=== PATIENT | male | born 1960 | race Caucasian/White ===

== ENCOUNTER 2020-12-14 10:29 | Emergency (ER) | payer MEDICARE, SELFPAY ==
[2020-12-14 11:16] VITALS: BP 164/88; PULSE 60; RESP 15; TEMP 36.3; O2SAT 96; BMI 54.3
--- NOTE | 2020-12-14 13:33 | W.ED.EXTPRO ---
HPI - Extremity Problem General: Chief complaint: Extremity Injury, Lower Stated complaint: L foot wound Time Seen by Provider: 12/14/20 13:21 History of Present Illness: HPI Narrative: Patient is a 60-year-old male comes to the ED with a wound on left foot. Patient says proximately 2 weeks ago he had to drive across country from [place] to here in [place]. He says he had his left foot resting on the floor boards and it caused a wound on his foot. He has been tending to it for the past week and soaking his foot hydrogen peroxide and water and did has not gotten better. He denies any diabetes or peripheral neuropathy. He says he has had a bad staph infection in the past. Denies any fever, chills, nausea/vomiting. Patient is new in town and just got here last week. He has an appointment with a primary care provider here locally on January 05 to get established. Patient says he has a history of chronic kidney disease, hypertension, A. fib. Associated symptoms: Deny chest pain, fever(s) or rash Review of Systems Const: Denies: fever(s), chills or fatigue Eyes: Denies: change in vision or eye discomfort ENMT: Denies: throat pain, odynophagia, nasal discharge or nasal congestion Card: Denies: chest pain, palpitations, edema, swelling of feet/ankles, dyspnea on exertion or orthopnea Resp: Denies: dyspnea, productive cough or non-productive cough GI: Denies: abdominal pain, nausea, vomiting, diarrhea, constipation or hematochezia : Denies: flank pain, difficulty urinating, dysuria or hematuria Musc: Denies: neck pain, back pain or extremity swelling Skin/Breast: Reports: non-healing lesions (Mild worsening wound on bottom of left foot.); Denies: rash Neuro: Denies: headache(s), numbness in extremities or weakness in extremities Physical Exam Const: COMMON NORMALS: no acute distress and patient oriented x3 GENERAL APPEARANCE: cooperative and comfortable NUTRITIONAL APPEARANCE: obese HENMT: COMMON NORMALS: normocephalic HEAD & SCALP: normocephalic MOUTH: Normal oral and palatal mucosa present THROAT: posterior oropharynx normal and uvula midline Neck/C-Spine: COMMON NORMALS: supple GENERAL: Yes normal visual inspection Resp: COMMON NORMALS: normal respiratory effort, No retractions, No use of accessory muscles and clear to auscultation bilaterally AUSCULTATION: clear to auscultation bilaterally Cardio: COMMON NORMALS: regular rate, regular rhythm, S1 normal heart sound present, S2 normal heart sound present, No gallops present (Cardio), No clicks present (Cardio), No murmurs present (Cardio) and Peripheral pulses 2+ throughout RATE: regular rate RHYTHM: regular rhythm HEART SOUNDS: S1 normal heart sound present and S2 normal heart sound present PERIPHERAL PULSES: Peripheral pulses 2+ throughout GI: COMMON NORMALS: Normal to inspection, nondistended, normoactive bowel sounds present, Soft to palpation, non-tender and no masses PALPATION: Yes Soft to palpation : COMMON NORMALS: Yes no CVA tenderness BLADDER/KIDNEY EXAM: Yes no CVA tenderness Back/Pelvis: COMMON NORMALS: no CVA tenderness Extremity: NARRATIVE EXTREMITY EXAM: Left foot?patient has a pressure ulcer on the lateral aspect of the plantar side of foot. There is a foul odor and some yellow drainage from ulcer. There is some surrounding erythema and swelling in the foot as well. GENERAL: Yes normal exam except as noted Neuro: COMMON NORMALS: patient oriented x3 and moves all extremities Skin: NARRATIVE SKIN EXAM: Left foot?patient has a pressure ulcer on the lateral aspect of the plantar side of foot. There is a foul odor and some yellow drainage from ulcer. There is some surrounding erythema and swelling in the foot as well. GENERAL SKIN EXAM: dry skin Course Vital Signs: Vital signs: Vital Signs Temperature 97.3 F L 12/14/20 11:16 Pulse Rate 84 12/14/20 15:21 Respiratory Rate 20 H 12/14/20 15:21 Blood Pressure 131/69 12/14/20 15:21 Pulse Oximetry 98 12/14/20 15:21 MDM - Extremity (Nontraumatic) MDM Narrative: Medical decision making narrative: Patient is a 60-year-old male that comes to the ED with a wound on left foot. Patient is new to the area and just moved here a week ago. Past medical history of chronic kidney disease of unknown stage, hypertension, A. fib. Patient has no other complaints. Patient is obese and is sitting comfortably on exam bed when entered the room. He showed no signs of any acute distress or pain. He does have an ulcer on the bottom of his left foot that has some surrounding erythema warmth and there is some malodorous purulent drainage from ulcer as well. CBC was unremarkable no elevation of white blood cell count. CRP 32.4. Patient had an elevated creatinine level of 2.6, but we have no history on patient besides him telling us that he has chronic kidney disease so this is very likely his normal level. He has no flank pain, abdominal pain, UTI complaints or CVA tenderness upon exam. X-ray of left foot showed no signs of any osteomyelitis. Patient was given a dose of IV Vanco while here in the ED. I placed an order with case management for patient to be referred to wound care clinic for further evaluation and treatment of left foot ulcer. Patient was diagnosed with a foot ulcer and discharged home with a prescription for Bactrim and a written prescription for hydrocodone for pain. Patient has an appointment with PCP here in the area in a couple weeks to get care established. I told patient that employment case manager will be contacting the next several days set up an appointment with wound care clinic. Return to ED precautions given. Patient understood agree with plan. Lab Data: Attestation: I reviewed the patient's lab results. Labs: Lab Results 12/14/20 12/14/20 Range/Units 14:42 14:42 WBC 8.3 (4.0-10.0) 10^3/ uL RBC 3.58 L (4.1-5.3) 10^6/u L Hgb 11.0 L (11.7-16.6) g/dL Hct 35.4 L (42.0-52.0) % MCV 98.9 H (80-94) fL MCH 30.7 (28.0-34.0) pg MCHC 31.1 (30.0-36.0) g/dL RDW 13.8 (12.1-15.1) % Plt Count 252 (130-400) 10^3/c mm MPV 9.5 (7.4-10.4) fL Neut % (Auto) 74.7 % Lymph % (Auto) 15.2 % [place] % (Auto) 6.7 % Eos % (Auto) 1.9 % Baso % (Auto) 0.5 % Neut # (Auto) 6.20 (1.8-7.7) 10^3/u L Lymph # (Auto) 1.3 (0.8-4.8) 10^3/u L [place] # (Auto) 0.6 (0.2-0.9) 10^3/u L Eos # (Auto) 0.2 (0.0-0.8) 10^3/u L Baso # (Auto) 0.0 (0.0-0.1) 10^3/u L Nucleated RBC % (a uto) 0 % Nucleated RBCs # 0.0 /100WBC Sodium 140 (136-145) mmol/L Potassium 5.0 (3.5-5.1) mmol/L Chloride 106 (98-107) mmol/L Carbon Dioxide 20 L (22-29) mmol/L Anion Gap 19.0 (5-19) BUN 65 H (8-23) mg/dL Creatinine 2.6 H (0.7-1.2) mg/dL GFR Calculation 25.2 L (90-130) mL/min Glucose 120 H (65-115) mg/dL Calculated Osmolal ity 310 H (285-295) mOsm/k g Calcium 9.4 (8.5-10.5) mg/dL Total Bilirubin 0.3 (0.15-1.2) mg/dL AST 11 (0-40) U/L ALT 7 (0-41) U/L Alkaline Phosphata se 65 (40-130) IU/L C-Reactive Protein 32.4 H (0.0-4.9) mg/L Total Protein 7.1 (6.6-8.7) g/dL Albumin 4.0 (3.5-5.2) g/dL Globulin 3.1 (1.3-4.6) g/dL Imaging Data^: Xray Ortho: Attestation: I personally reviewed and interpreted this imaging study as follows: Radiologist's impression: [address] [address] XRay Report Signed Patient: Kristopher Jesus Unit #: [id number] : 1960 Age/Sex: 60 / M ADM Date: 12/14/20 Loc: ER Room/Bed: Attending Dr: Ordering Provider/Ordering MD: Leo Arellano Date of Service: 07/04/21 Procedure(s): XR foot LT min 3V* 39898 Accession Number(s): [id number] Report Number: [id number] PROCEDURE INFORMATION: Exam: XR Left Foot Exam date and time: 12/14/2020 1:41 PM Age: 60 years old Clinical indication: Pain; Foot; Left; Prior surgery; Additional info: Ulcer on bottom of foot TECHNIQUE: Imaging protocol: XR Left foot. Views: 3 or more views. COMPARISON: No relevant prior studies available. FINDINGS: Bones/joints: Ankylosis of the hindfoot and midfoot. Severe degenerative changes tibiotalar joint. Severe degenerative changes at the 1st metatarsophalangeal joint. Prior trauma with healed fracture distal aspect 3rd metatarsal. XR/XR foot LT min 3V* 10106 IMPRESSION: No discrete evidence of osteomyelitis. 1. Ankylosis of the hindfoot and midfoot. 2. Severe degenerative changes tibiotalar joint. 3. Severe degenerative changes at the 1st metatarsophalangeal joint. 4. Prior trauma with healed fracture distal aspect 3rd metatarsal. Dictated By: Francisco Rodriguez MD Signed By: Francisco Rodriguez MD Signed Date/Time: 12/14/201443 DD/ 42 Discharge Plan Discharge Patient Disposition: Home Clinical Impression: Foot ulcer Qualifiers: Laterality: left Non-pressure ulcer stage: with fat layer exposed Qualified Code(s): L97.522 - Non-pressure chronic ulcer of other part of left foot with fat layer exposed Condition: Stable Prescriptions: New Bactrim DS 800-160 mg tablet 1 tab PO BID 10 Days Qty: 20 RF: 0 No Action Aspir-81 81 mg PO DAILY RF: 0 hydralazine 10 mg Tablet 10 mg PO TID RF: 0 carvedilol 12.5 mg Tablet 6.25 mg PO BID RF: 0 Vitamin B-12 1,000 mcg Tablet 1,000 mcg PO DAILY RF: 0 amlodipine 5 mg Tablet 5 mg PO DAILY RF: 0 spironolactone 25 mg Tablet 25 mg PO DAILY RF: 0 gemfibrozil 600 mg Tablet 600 mg PO BID RF: 0 folic acid 1 mg Tablet 1 mg PO DAILY RF: 0 hydralazine 50 mg Tablet 50 mg PO TID RF: 0 lisinopril 40 mg Tablet 40 mg PO BID RF: 0 Vitamin D3 125 mcg (5,000 unit) Tablet 125 mcg PO DAILY RF: 0 Multaq 400 mg Tablet 400 mg PO BID RF: 0 Fish Oil 1,000 mg (120 mg-180 mg) Capsule 1 cap PO DAILY RF: 0 Xarelto 15 mg Tablet 15 mg PO DAILY RF: 0 One-A-Day Men's 50 Plus 400-20-370 mcg Tablet 1 tab PO DAILY RF: 0 magnesium oxide 400 mg magnesium Tablet 400 mg PO DAILY RF: 0 Discharge Orders: Discharge ED (Routine); Ordered 12/14/20 Ordered By: Leo Arellano Discharge Diet: Regular Discharge Activity: Resume usual activity Patient Instructions: Acute Wound Care (ED), Pressure Ulcer (ED), Opioid Safety Activity Restrictions/Additional Instructions: Follow-up with medical provider as directed. Case management will be contacting you in the next several days to set up an appointment with a wound care clinic. Take medications as prescribed. Return to the ER or your medical provider if condition worsens. Please read and understand discharge instructions. Thank you for choosing [facility] for your healthcare needs today. Please realize this is an emergency room and that we are providing you with a medical screening exam and this may not be complete and all inclusive of all the testing and or work up that you may need to determine your ailment or severity of your illness. It is very important that you follow up as instructed or that you return to the Emergency Department should you have concerns or if your condition changes or worsens in any way. Coding Level of Care Code ED Senior Attorney for Helga Fonseca Exam Comprehensive
--- NOTE | 2020-12-14 13:41 | XRR_ITS ---
PROCEDURE INFORMATION: Exam: XR Left Foot Exam date and time: 12/14/2020 1:41 PM Age: 60 years old Clinical indication: Pain; Foot; Left; Prior surgery; Additional info: Ulcer on bottom of foot TECHNIQUE: Imaging protocol: XR Left foot. Views: 3 or more views. COMPARISON: No relevant prior studies available. FINDINGS: Bones/joints: Ankylosis of the hindfoot and midfoot. Severe degenerative changes tibiotalar joint. Severe degenerative changes at the 1st metatarsophalangeal joint. Prior trauma with healed fracture distal aspect 3rd metatarsal. XR/XR foot LT min 3V* 42753 IMPRESSION: No discrete evidence of osteomyelitis. 1. Ankylosis of the hindfoot and midfoot. 2. Severe degenerative changes tibiotalar joint. 3. Severe degenerative changes at the 1st metatarsophalangeal joint. 4. Prior trauma with healed fracture distal aspect 3rd metatarsal.
[2020-12-14 14:50] LABS: Basophils % 0.5 %; Eosinophils # 0.2 10^3/uL (0.0-0.8); Eosinophils % 1.9 %; Hematocrit 35.4 % (42.0-52.0); Lymphocytes # 1.3 10^3/uL (0.8-4.8); Lymphocytes % 15.2 %; Mean Corpuscular HGB Conc 31.1 g/dL (30.0-36.0); Mean Corpuscular Hemoglobin 30.7 pg (28.0-34.0); Mean Corpuscular Volume 98.9 fL (80-94); Mean Platelet Volume 9.5 fL (7.4-10.4); Monocytes # 0.6 10^3/uL (0.2-0.9); Monocytes % 6.7 %; Neutrophils % 74.7 %; Nucleated Red Blood Cells % 0 %; Platelet Count 252 10^3/cmm (130-400); Red Blood Count 3.58 10^6/uL (4.1-5.3); Red Cell Distribution Width 13.8 % (12.1-15.1); White Blood Count 8.3 10^3/uL (4.0-10.0)
[2020-12-14] MEDS: vancomycin 1,500 MG/300 ML PIGGYBACK 200 MG IV (14:58)
[2020-12-14] MEDS: sodium chloride 0.9% 500 ML IV (14:58)
[2020-12-14 15:18] LABS: Alanine Aminotransferase 7 U/L (0-41); Alkaline Phosphatase 65 IU/L (40-130); Aspartate Amino Transferase 11 U/L (0-40); Blood Urea Nitrogen 65 mg/dL (8-23); C Reactive Protein 32.4 mg/L (0.0-4.9); Calcium 9.4 mg/dL (8.5-10.5); Carbon Dioxide 20 mmol/L (22-29); Chloride 106 mmol/L (98-107); Globulin 3.1 g/dL (1.3-4.6); Glomerular Filtration Rate 25.2 mL/min (90-130); Glucose 120 mg/dL (65-115); Osmolality Calculated 310 mOsm/kg (285-295); Sodium 140 mmol/L (136-145); Total Bilirubin 0.3 mg/dL (0.15-1.2); Total Protein 7.1 g/dL (6.6-8.7)
[2020-12-14 15:21] VITALS: BP 131/69; PULSE 84; RESP 20; O2SAT 98
[2020-12-14] MEDS: HYDROcodone-acetaminophen 7.5-325 mg Tablet 1 TAB PO (15:51)
--- NOTE | 2020-12-14 17:19 | PC.NURSE ---
left foot wound cleaned with saline and covered with telfa, 4x4s and gauze. supplies fro one more dressing given to patient. he is to follow up with wound care
--- NOTE | 2020-12-16 08:17 | DCPLANNER ---
manager merchandise had message to schedule a follow up appointment for patient with Wound Care. manager merchandise called Wound Care clinic, spoke with Kandy, gave clinic patients information. A follow up appointment was scheduled for Tuesday, December 17, 2020 at 8:30 with Gladys. manager merchandise called patient and gave patient the appointment information.
--- NOTE | 2021-01-29 11:33 | DCPLANNER ---
Patient had a follow up appointment scheduled for 12.17.20 with Wound Care - patient did attend appointment.
== END 2020-12-14 17:21 | disposition home or self-care (01) ==
PROVIDERS: Emergency Provider Physician Assistant
DX: L97.522 Non-pressure chronic ulcer of other part of left foot with fat layer exposed (principal); Z79.82 Long term (current) use of aspirin
CPT/HCPCS: 36415; 73630; 80053; 85025; 86140; 87040; 96365; 99284; J3370; J7040

== ENCOUNTER 2020-12-17 08:11 | Outpatient (CLI) | payer MEDICARE, SELFPAY | END 2020-12-17 08:12 | disposition home or self-care (01) | PROVIDERS: Visit Provider Nurse Practitioner Family | DX: I96 Gangrene, not elsewhere classified (principal); L97.522 Non-pressure chronic ulcer of other part of left foot with fat layer exposed | CPT/HCPCS: 11042; 11045; G0463 ==

== ENCOUNTER 2020-12-31 08:56 | Outpatient (CLI) | payer MEDICARE, SELFPAY | END 2020-12-31 08:57 | disposition home or self-care (01) | LOC: WOUND 08:56 | PROVIDERS: PCP Family Medicine Adult Medicine; Visit Provider Thoracic Surgery (Cardiothoracic Vascular Surgery) | DX: I96 Gangrene, not elsewhere classified (principal); L89.892 Pressure ulcer of other site, stage 2 | CPT/HCPCS: 11042; 11045 ==

== ENCOUNTER 2021-01-07 08:42 | Outpatient (CLI) | payer MEDICARE, MEDICAID, SELFPAY | END 2021-01-07 08:43 | disposition home or self-care (01) | LOC: WOUND 08:43 | PROVIDERS: PCP Family Medicine Adult Medicine; Visit Provider Nurse Practitioner Family | DX: L89.892 Pressure ulcer of other site, stage 2 (principal) | CPT/HCPCS: 11042; 11045 ==

== ENCOUNTER 2021-01-14 08:49 | Outpatient (CLI) | payer MEDICARE, MEDICAID, SELFPAY | END 2021-01-14 08:50 | disposition home or self-care (01) | LOC: WOUND 08:51 | PROVIDERS: PCP Family Medicine Adult Medicine; Visit Provider Thoracic Surgery (Cardiothoracic Vascular Surgery) | DX: L89.892 Pressure ulcer of other site, stage 2 (principal) | CPT/HCPCS: 11042 ==

== ENCOUNTER 2021-01-21 08:34 | Outpatient (CLI) | payer MEDICARE, MEDICAID, SELFPAY | END 2021-01-21 08:35 | disposition home or self-care (01) | PROVIDERS: PCP Family Medicine Adult Medicine; Visit Provider Thoracic Surgery (Cardiothoracic Vascular Surgery) | DX: L89.892 Pressure ulcer of other site, stage 2 (principal) | CPT/HCPCS: 11042 ==

== ENCOUNTER → 2021-01-27 10:49 | Outpatient (BNVA) | payer MEDICARE, MEDICAID, SELFPAY | PROVIDERS: Visit Provider Family Medicine Adult Medicine | DX: I11.0 Hypertensive heart disease with heart failure; I50.9 Heart failure, unspecified; I25.10 Atherosclerotic heart disease of native coronary artery without angina pectoris; E66.01 Morbid (severe) obesity due to excess calories; L97.509 Non-pressure chronic ulcer of other part of unspecified foot with unspecified severity; Z68.43 Body mass index [BMI] 50.0-59.9, adult | CPT/HCPCS: 80053; 83036; 84443; 85025 ==

== ENCOUNTER 2021-01-28 08:15 | Outpatient (CLI) | payer MEDICARE, MEDICAID, SELFPAY | END 2021-01-28 08:16 | disposition home or self-care (01) | LOC: WOUND 08:16 | PROVIDERS: Visit Provider Thoracic Surgery (Cardiothoracic Vascular Surgery) | DX: L89.892 Pressure ulcer of other site, stage 2 (principal) | CPT/HCPCS: 11042 ==

== ENCOUNTER 2021-02-04 08:44 | Outpatient (CLI) | payer MEDICARE, MEDICAID, SELFPAY | END 2021-02-04 08:45 | disposition home or self-care (01) | LOC: WOUND 08:45 | PROVIDERS: Visit Provider Nurse Practitioner Family | DX: L89.892 Pressure ulcer of other site, stage 2 (principal) | CPT/HCPCS: 11042 ==

== ENCOUNTER 2021-02-18 08:55 | Outpatient (CLI) | payer MEDICARE, SELFPAY | END 2021-02-18 08:56 | disposition home or self-care (01) | LOC: WOUND 08:56 | PROVIDERS: Visit Provider Thoracic Surgery (Cardiothoracic Vascular Surgery) | DX: L89.892 Pressure ulcer of other site, stage 2 (principal) | CPT/HCPCS: 11042 ==

== ENCOUNTER 2021-03-04 08:02 | Outpatient (CLI) | payer MEDICARE, MEDICAID, SELFPAY | END 2021-03-04 08:03 | disposition home or self-care (01) | LOC: WOUND 08:03 | PROVIDERS: PCP Family Medicine Adult Medicine; Visit Provider Thoracic Surgery (Cardiothoracic Vascular Surgery) | DX: L89.892 Pressure ulcer of other site, stage 2 (principal) | CPT/HCPCS: 97597 ==

== ENCOUNTER 2021-03-18 08:49 | Outpatient (CLI) | payer MEDICARE, MEDICAID, SELFPAY | END 2021-03-18 08:50 | disposition home or self-care (01) | LOC: WOUND 08:50 | PROVIDERS: PCP Family Medicine Adult Medicine; Visit Provider Thoracic Surgery (Cardiothoracic Vascular Surgery) | DX: L89.892 Pressure ulcer of other site, stage 2 (principal) | CPT/HCPCS: 97597 ==

== ENCOUNTER 2021-04-01 08:26 | Outpatient (CLI) | payer MEDICARE, MEDICAID, SELFPAY | END 2021-04-01 08:27 | disposition home or self-care (01) | LOC: WOUND 08:27 | PROVIDERS: Visit Provider Nurse Practitioner Family | DX: Z09 Encounter for follow-up examination after completed treatment for conditions other than malignant neoplasm (principal) | CPT/HCPCS: 99212 ==

== ENCOUNTER 2021-07-14 08:47 | Inpatient (IN) | payer MEDICARE, SELFPAY ==
[2021-07-14] VITALS (56 sets, daily range): BP systolic 91–165; BP diastolic 41–92; PULSE 0–170; RESP 13–35; O2SAT 91–100; BMI 48.8
[2021-07-14] MEDS: midazolam 1 mg/mL INJ 2 mL 3 MG IVP (08:56)
--- NOTE | 2021-07-14 09:04 | ECG_ITS ---
[facility] Test Date: 2021-07-14 Pat Name: Kristopher Jesus Department: Room: Gender: Male Graduate Research Assistant: : 1958-02-28 Requested By: Zack Santos Order Number: [id number] Hamzah MD: Brittany Castillo M.D. Measurements Intervals [place] Rate: 72 P: 66 [place]: 234 QRS: 118 QRSD: 169 T: -12 QT: 391 QTc: 431 Interpretive Statements SINUS RHYTHM WITH FIRST DEGREE AV BLOCK INTRAVENTRICULAR CONDUCTION DELAY [130+ ms QRS DURATION] LATERAL MYOCARDIAL INFARCTION , OF INDETERMINATE AGE [40+ ms Q WAVE AND/OR ST/T ABNORMALITY IN I/aVL/V5/V6] No previous ECG available for comparison Electronically Signed On 07-14-2021 17:08:54 COMB SETTER by Brittany Castillo M.D. [email or web address], [id number] f
--- NOTE | 2021-07-14 09:06 | XR_ITS ---
WS: [id number] XR chest 1V portable [id number] REASON FOR EXAM: resuscitation FINDINGS: Prominent mediastinum likely due to tortuous great vessels and mediastinal fat. The heart is at the upper limits of normal. No acute pulmonary parenchymal or pleural abnormality is identified. No pneumothorax. Bony thorax is intact. No acute rib fracture identified. XR/XR chest 1V portable [id number] IMPRESSION: No acute chest abnormality.
--- NOTE | 2021-07-14 09:09 | ECG_ITS ---
[facility] Test Date: 2021-07-14 Pat Name: Kristopher Jesus Department: Room: Gender: Male Premium Cancellation Clerk: : 1958-02-28 Requested By: Zack Santos Order Number: [id number] Hamzah MD: Brittany Castillo M.D. Measurements Intervals [place] Rate: 80 P: 47 RI: 231 QRS: 90 QRSD: 178 T: 14 QT: 417 QTc: 483 Interpretive Statements SINUS RHYTHM WITH FIRST DEGREE AV BLOCK INDETERMINATE AXIS INTRAVENTRICULAR CONDUCTION DELAY [130+ ms QRS DURATION] No previous ECG available for comparison Electronically Signed On 07-14-2021 17:08:35 SENIOR MARKETING ANALYST by Brittany Castillo M.D. [id number]
[2021-07-14] MEDS: heparin 5,000 unit/mL INJ 1 mL 4000 UNIT IVP (09:15)
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
[2021-07-14] MEDS: heparin drip 25,000 UNIT/500 ML PREMIX 38.1 UNIT IV (09:24)
[2021-07-14 10:08] LABS: Basophils % 0.3 %; Eosinophils % 0.5 %; Hematocrit 36.2 % (42.0-52.0); Lymphocytes # 0.6 10^3/uL (0.8-4.8); Lymphocytes % 9.1 %; Mean Corpuscular HGB Conc 30.4 g/dL (30.0-36.0); Mean Corpuscular Hemoglobin 32.3 pg (28.0-34.0); Mean Corpuscular Volume 106.2 fl (80-94); Mean Platelet Volume 9.3 fL (7.4-10.4); Monocytes # 0.3 10^3/uL (0.2-0.9); Monocytes % 4.2 %; Neutrophils # 5.22 10^3/uL (1.8-7.7); Neutrophils % 84.9 %; Nucleated Red Blood Cells % 0 %; Platelet Count 183 10^3/cmm (130-400); Red Blood Count 3.41 10^6/uL (4.1-5.3); Red Cell Distribution Width 14.1 % (12.1-15.1); White Blood Count 6.2 10^3/uL (4.0-10.0)
[2021-07-14 10:10] LABS: Arterial Blood Gas Hematocrit 35.4 % (42-52); Base Excess ABG -15.3 mmol/L (-2.0-2.0); Blood Gas Allen Test Pos; Blood Gas Sample Site Radial, left; Blood Gas Sample Type Arterial; Carboxyhemoglobin 0.4 %THgb (0.4-20.1); HCO3 ABG 12.8 mmol/L (22-26); HGB O2 Sat 98.3 % (95-100); Ionized Calcium Level - ABG 1.3 mmol/L (1.1-1.4); Oxygen Device NRB; Oxygen Saturation ABG 99.7; Potassium Level - ABG 5.6 mmol/L (3.5-5.0); Total Hemoglobin 11.6 g/dL (14-18)
[2021-07-14 10:11] LABS: ABG PH Result 7.15 (7.35-7.45)
[2021-07-14] MEDS: morphine 4 mg/mL SDV 1 mL 2 MG IVP ×4 (10:14→20:14)
--- NOTE | 2021-07-14 10:25 | PC.NURSE ---
Upon arrival in ED pt was found to be in V-tach per EMS and bedside monitor. Pt was administered 3 mg Versed and a synchronized cardioversion at 120j was delivered at 0858. This cardioversion converted patient in V-fib and an immediate defibrillator (unsynced) was delivered at 200j was delivered. CPR was very briefly performed (less than 10 seconds) following defibrillation. Once CPR was stopped pt was found to be in a sinus rhythm. Pt is now, at this time, alert, oriented x 4 with stable vital signs. Dr. Pruitt is at bedside.
[2021-07-14 10:36] LABS: Troponin(5th) Baseline 62 ng/L (0-15)
--- NOTE | 2021-07-14 11:09 | ECG_ITS ---
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 Measurements Intervals [place] Rate: 82 P: 85 TN: 227 QRS: 71 QRSD: 165 T: 67 QT: 374 QTc: 439 Interpretive Statements SINUS RHYTHM WITH FIRST DEGREE AV BLOCK LEFT BUNDLE BRANCH BLOCK [120+ ms QRS DURATION, 80+ ms Q/S IN V1/V2, 85+ ms R IN I/aVL/V5/V6] Compared to ECG 07/14/2021 10:28:24 Left bundle-branch block now present Indeterminate axis no longer present Intraventricular conduction delay no longer present Electronically Signed On 07-14-2021 17:12:21 ROAD MENDER by Brittany Castillo M.D. [id number]
--- NOTE | 2021-07-14 11:13 | PC.PHAR ---
PT IS UNABLE TO VERIFY MEDICATIONS, PT IS BECOMING AGITATED TALKING ABOUT MEDS. PT STATES HE FILLS THROUGH [facility] - MEDICATIONS VERIFIED BY [facility] RECENTLY FILLED MEDS
[2021-07-14 11:17] LABS: Alanine Aminotransferase 15 U/L (0-41); Albumin Level 3.6 g/dL (3.5-5.2); Alkaline Phosphatase 50 IU/L (40-130); Anion Gap 16.6 (5-19); Aspartate Amino Transferase 33 U/L (0-40); Blood Urea Nitrogen 37 mg/dL (8-23); Calcium 8.6 mg/dL (8.5-10.5); Carbon Dioxide 14 mmol/L (22-29); Chloride 112 mmol/L (98-107); Creatine Phosphokinase 90 U/L (39-308); Globulin 2.5 g/dL (1.3-4.6); Glucose 102 mg/dL (65-115); Magnesium 2.1 mg/dL (1.7-2.3); Osmolality Calculated 291 mOsm/kg (285-295); Sodium 136 mmol/L (136-145); Thyroid Stimulating Hormone 1.18 uIU/mL (0.27-4.20); Total Bilirubin 0.2 mg/dL (0.15-1.2); Total Protein 6.1 g/dL (6.6-8.7)
[2021-07-14 11:19] LABS: Potassium 6.6 mmol/L (3.5-5.1)
[2021-07-14] MEDS: sodium bicarbonate 8.4% 1 mEq/mL 50mL Syr 100 MEQ IVP (11:33)
[2021-07-14] MEDS: dextrose 50% syringe 50 mL IVP ×2 (11:36→21:24)
[2021-07-14] MEDS: insulin regular-human 100 units/1 mL 10 UNIT IVP ×2 (11:37→21:32)
[2021-07-14] MEDS: calcium gluconate 0.9% NaCL 1 GM/50 ML PREMIX IV ×3 (11:42→21:31)
[2021-07-14 11:59] LABS: Troponin 5 2HR 74.63 ng/L (0-15)
[2021-07-14 12:05] LABS: Troponin 5 2HR Delta 12.63 ABS# (0-10)
[2021-07-14] MEDS: acetaminophen 325 mg Tablet 650 MG PO (12:27)
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
--- NOTE | 2021-07-14 13:24 | USCV_ITS ---
Kristopher Jesus Age: 63 Gender: M : 02/28/1958 Exam Date: 07/14/2021 14:05 Ordering Phys: Andrei Pruitt MD Technologist: MERLE [place] [facility] [place] Indication: c/o chest pain, was in Vtach, shocked back to sinus rhythm, now in ER. Patient states that this happened to him in 2017, at [facility], [place], [place]. He states that he has seen Dr. Mancia, and that Dr. Mancia has a copy of his prior echo from [facility]. No hx of cardiac intervention per patient. BP: 144 / 80 HR: 85 Rhythm: Sinus Technical Quality: Adequate with [employer] MEASUREMENTS (Male / Female) Normal Values 2D ECHO LV Diastolic Diameter PLAX 5.9 cm 4.2 - 5.9 / 3.9 - 5.3 cm LV Systolic Diameter PLAX 3.6 cm IVS Diastolic Thickness 1.5 cm 0.6 - 1.0 / 0.6 - 0.9 cm IVS Systolic Thickness 2.1 cm LVPW Diastolic Thickness 1.3 cm 0.6 - 1.0 / 0.6 - 0.9 cm LVPW Systolic Thickness 1.9 cm LVOT Diameter 2.2 cm LV Ejection Fraction 2D Teich 67.8 % LV Ejection Fraction MOD 2C 68.3 % LV Ejection Fraction 2C AL 69.6 % LA Diameter 5.1 cm LA Width 6.8 cm LA Height 7.0 cm RA Width 5.5 cm RA Height 5.3 cm Aorta at Sinotubular Diameter 3.1 cm M-MODE Aortic Annulus Diameter 3.2 cm LA Ao Ratio MM 1.7 MV E Point Septal Separation 0.1 cm DOPPLER AV Peak Velocity 152.0 cm/s LVOT Peak Velocity 109.0 cm/s AV Area Cont Eq vti 2.9 cm squared AV Area Cont Eq pk 2.7 cm squared MV Peak Velocity 139.0 cm/s MV Area PHT 2.8 cm squared Mitral E to A Ratio 1.2 MV E' Velocity 60.0 cm/s Mitral E to MV E' Ratio 7.7 Mitral E to LV E' Lateral Ratio 6.9 Mitral E to LV E' Septal Ratio 8.6 TR Peak Velocity 299.3 cm/s TR Peak Gradient 35.8 mmHg TV Peak E Velocity 61.0 cm/s Right Atrial Pressure 10.0 mmHg Pulmonary Artery Systolic Pressu 45.8 mmHg FINDINGS Left Ventricle Normal left ventricular size. LV systolic function is grossly normal. Diastolic function is indeterminate Right Ventricle Grossly normal Right Atrium Not well visualized Left Atrium The left atrium is enlarged Mitral Valve Grossly normal Aortic Valve Not well visualized. No significant Aortic stenosis Tricuspid Valve Not well visualized Pulmonic Valve Not well visualized Pericardium Pleural effusion is noted Aorta Normal ascending aorta dimension. CONCLUSIONS Technically limited quality echocardiogram because of poor ultrasonic windows. LV systolic function is grossly normal. Left atrium is enlarged Valvular structures are not well-visualized however no gross abnormalities seen. Pleural effusion is noted. No comparison studies are available. Tera Cristobal MD (Electronically Signed) Final Date: 15 July 2021 12:14 S
[2021-07-14 14:00] LABS: Anion Gap 11.8 (5-19); Blood Urea Nitrogen 37 mg/dL (8-23); Calcium 8.3 mg/dL (8.5-10.5); Carbon Dioxide 17 mmol/L (22-29); Chloride 115 mmol/L (98-107); Glomerular Filtration Rate 55.6 mL/min (90-130); Glucose 74 mg/dL (65-115); Osmolality Calculated 293 mOsm/kg (285-295); Potassium 5.8 mmol/L (3.5-5.1); Sodium 138 mmol/L (136-145)
[2021-07-14 14:02] LABS: Add Urine Microscopic? NO; Charge for UA Resulting for Rev
[2021-07-14 14:12] LABS: Bilirubin Urine Neg (Negative); Blood Urine Neg (Negative); Glucose Urine UA Norm (Normal); Ketones Urine Negative (Negative); Leukocyte Esterase Urine Negative (Negative); Nitrate Urine Negative (Negative); Protein Urine Neg (Negative); Urine Appearance Clear (CLEAR); Urine Color Yellow (Yellow); Urobilinogen Urine Neg (Negative); pH Urine 5 (5-7)
[2021-07-14 14:32] LABS: Glucose Point of Care 82 mg/dL (70-110)
[2021-07-14 14:46] LABS: Vitamin B12 898 pg/mL (232-1245)
[2021-07-14] MEDS: perflutren protein-a microsphr 0.22 mg/mL SDV 3 mL IV (14:58)
[2021-07-14] MEDS: hyDRALAzine 50 mg Tablet PO (15:04)
--- NOTE | 2021-07-14 15:11 | PC.NURSE ---
2 mg Morphine given per verbal order of Dr. Downing. This was ahead of scheduled PRN time. Med was given to complete ECHO. Pt had CPR performed briefly earlier and ECHO was causing pain to this area.
[2021-07-14] MEDS: carvedilol 6.25 mg Tablet PO (18:08)
[2021-07-14] MEDS: sodium polystyrene sulfonate 15 gm/60 mL Btl PO ×2 (18:08→21:24)
[2021-07-14] MEDS: gemfibrozil 600 mg Tablet PO (18:08)
[2021-07-14 18:14] LABS: Folate Level > 20.0 ng/mL (4.5-32.2)
[2021-07-14 18:42] LABS: Partial Thromboplastin Time 104.3 SECONDS (23.9-36.7); Troponin 5 6HR 69.25 ng/L (0-15)
[2021-07-14 18:45] LABS: Troponin 5 6HR Delta 7.25 ng/L (0-12)
[2021-07-14 20:59] LABS: Blood Urea Nitrogen 38 mg/dL (8-23); Calcium 8.7 mg/dL (8.5-10.5); Chloride 112 mmol/L (98-107); Glomerular Filtration Rate 55.6 mL/min (90-130); Glucose 67 mg/dL (65-115); Osmolality Calculated 289 mOsm/kg (285-295); Sodium 136 mmol/L (136-145)
[2021-07-14 21:00] LABS: Anion Gap 22.5 (5-19); Carbon Dioxide 8 mmol/L (22-29); Potassium 6.5 mmol/L (3.5-5.1)
[2021-07-14] MEDS: dextrose 50% syringe 50 mL 25 ML IVP (21:27)
[2021-07-14] MEDS: sodium bicarbonate 8.4% 1 mEq/mL 50mL Syr 50 MEQ IVP (21:28)
[2021-07-14 23:07] LABS: Glucose Point of Care 115 mg/dL (70-110)
[2021-07-15] VITALS (48 sets, daily range): BP systolic 82–140; BP diastolic 47–83; PULSE 67–86; RESP 13–45; TEMP 36.8–36.9; O2SAT 87–100
[2021-07-15] MEDS: sodium polystyrene sulfonate 15 gm/60 mL Btl PO ×2 (03:26→17:43)
[2021-07-15] MEDS: morphine 4 mg/mL SDV 1 mL 2 MG IVP ×2 (03:42→12:41)
[2021-07-15 03:43] LABS: Basophils % 0.3 %; Eosinophils % 0.7 %; Hematocrit 30.5 % (42.0-52.0); Hemoglobin 9.4 g/dL (11.7-16.6); Lymphocytes # 1.6 10^3/uL (0.8-4.8); Lymphocytes % 27.7 %; Mean Corpuscular HGB Conc 30.8 g/dL (30.0-36.0); Mean Corpuscular Hemoglobin 32.1 pg (28.0-34.0); Mean Corpuscular Volume 104.1 fl (80-94); Mean Platelet Volume 9.3 fL (7.4-10.4); Monocytes # 0.7 10^3/uL (0.2-0.9); Monocytes % 11.2 %; Neutrophils # 3.47 10^3/uL (1.8-7.7); Neutrophils % 59.6 %; Nucleated Red Blood Cells % 0 %; Platelet Count 161 10^3/cmm (130-400); Red Blood Count 2.93 10^6/uL (4.1-5.3); Red Cell Distribution Width 14.2 % (12.1-15.1); White Blood Count 5.8 10^3/uL (4.0-10.0)
[2021-07-15 04:24] LABS: Alanine Aminotransferase 14 U/L (0-41); Albumin Level 3.2 g/dL (3.5-5.2); Alkaline Phosphatase 44 IU/L (40-130); Aspartate Amino Transferase 25 U/L (0-40); Blood Urea Nitrogen 38 mg/dL (8-23); Calcium 8.5 mg/dL (8.5-10.5); Carbon Dioxide 18 mmol/L (22-29); Chloride 111 mmol/L (98-107); Globulin 2.1 g/dL (1.3-4.6); Glomerular Filtration Rate 55.6 mL/min (90-130); Glucose 99 mg/dL (65-115); Osmolality Calculated 295 mOsm/kg (285-295); Sodium 138 mmol/L (136-145); Total Bilirubin 0.3 mg/dL (0.15-1.2); Total Protein 5.3 g/dL (6.6-8.7)
--- NOTE | 2021-07-15 04:25 | PC.NURSE ---
No changes overnight. Patient NPO for heart cath today.
[2021-07-15] MEDS: diphenhydrAMINE 50 mg Capsule PO (05:11)
[2021-07-15] MEDS: sodium chloride 0.9% 1,000 ML 50 ML IV (05:12)
--- NOTE | 2021-07-15 06:53 | XACV_ITS ---
Exam Room: [facility] Ht: 180 cm Wt: 159 kg BSA: 2.90 m2 Gender: Male : 02/28/1958 Exam Priority: Routine Procedure(s): Procedure Description: Diagnostic procedure Procedure Description: Coronary Angiography Diagnostic Cath Status: Urgent Diagnostic Findings * INDICATION: Ventricular tachycardia. * No disease noted in the Left Main, Left Anterior Descending, Right, or Circumflex coronary arteries. * Coronary angiography shows right dominance. Conclusions 1. Etiology of ventricular tachycardia/vfib likely hyperkalemia. 2. No disease noted in the Left Main, Left Anterior Descending, Right, or Circumflex coronary arteries. Recommendations * Outpatient cardiology follow up in 4 weeks. * Aggressive medical therapy. Diagnostic RX Recommendation: medical therapy and/or counseling Anticoagulation: Heparin Clinical Evaluation EBL: 5mL-10mL Procedural Details Pre-Procedure Time Out. Identified patient by full name and date of as verbalized by the patient/guarantor. Does the consent match the physician's order: Yes. Accurate & Complete Informed Consent: Yes. Inpatient/Outpatient History & Physical on Chart: Yes. Visualize and Verify Site with Patient/Guarantor: N/A. Relevant Radiology Images available: N/A. The risks, benefits, and alternatives of sedation and/or procedure were discussed by physician. The patient agrees to continue. Procedure started. Procedure Consent Obtained. Admit Source: In Patient. [facility] Clinical Fraility Score: 4: Vulnerable. Supervisor Hanging And Trimming Indications: V Tach. Chest Pain Symptom Assessment: Atypical Angina. Correct patient, site and procedure confirmed by cath team. Current diagnosis: Chest Pain. PERRLA. Strong, equal hand machine stuffer automatic bilaterally. Lungs clear x 5 lobes. right groin was prepped with chloroprep then draped in the usual sterile fashion. right radial was prepped with chloroprep then draped in the usual sterile fashion. Physician arrived. Physician scrubbed in. Immediate Pre-Procedure Time Out. Correct Patient: Yes; Correct Procedure: Yes; Correct Site: Yes; Correct Patient Position: Yes; Correct Supplies: Yes; Dried Flammable Prep: Yes; Blood Products Available: N/A;. Pre Procedural Pulses: right radial was 2+. Oxygen started at 2liters/min via nasal canula. Physician notified. Baseline sample Acquired. HR: 82 BPM. right brachial was prepped with chloroprep then draped in the usual sterile fashion. IV occluded upon arrival to analytical lab technician. US guided IV attempted by Jordan Ricks and unsuccessful. Dr Cristobal to attempt brachial IV with US. Lidocaine 1% infiltrated to the right brachial. Venous access obtained with a micropuncture set. 14 Fr IV catheter inserted over the wire for venous access. Lidocaine 1% infiltrated to the right radial. Arterial access obtained. A 5 samoan TIG catheter in over wire. Multiple views taken of left coronary artery. Catheter redirected to the RCA. Multiple views taken of right coronary artery. Catheter out. A 5 samoan JL4 catheter in over wire. Multiple views taken of left coronary artery. Catheter out. A TR Band was successful obtaining hemostatsis at the Right Radial artery insertion site. Post Procedure: Pulses reassessed and unchanged. PERRLA. Strong, equal hand machine stuffer automatic bilaterally. No VTE prophylaxis required. Total IV fluids: 23 mL. Medication's Wasted: Heparin = 1000 u. Medication's Wasted: Nitro = 49.8 mg. Medication's Wasted: Lidocaine 1% = 12 mL. Medication's Wasted: Other = Fentanyl 50 mcg. Medication's Wasted: Other = Versed 1mg. Post-op diagnosis: Non Obstructive CAD. Complications: none. Estimated blood loss: 5mL-10mL. Responsiveness - Normal response to verbal stimuli; alert and oriented, PERRLA. Airway - Unaffected, no intervention required; spontaneous ventilation. Circulation: W/N/L, pulses unchanged. Nausea/Vomiting: No. Procedure completed. Patient transferred by bed to ICU. Vital chart was stopped. Access Site Site: Right Radial artery Sheath Size: 6 Fr Hemostasis Method: TR Band Hemostasis Success: Successful Procedure Medications Start: 7:36 AM Stop: 7:36 AM Medication: Versed Amount: 1 mg Route: I.V. Start: 7:36 AM Stop: 7:36 AM Medication: Fentanyl Amount: 50 mcg Route: I.V. Start: 7:39 AM Stop: 7:39 AM Medication: Versed Amount: 1 mg Route: I.V. Start: 7:39 AM Stop: 7:39 AM Medication: Fentanyl Amount: 50 mcg Route: I.V. Start: 7:39 AM Stop: 7:39 AM Medication: Nitrogylcerin Amount: 200 mcg Route: I.A. Start: 7:41 AM Stop: 7:41 AM Medication: Versed Amount: 1 mg Route: I.V. Start: 7:41 AM Stop: 7:41 AM Medication: Fentanyl Amount: 50 mcg Route: I.V. Start: 7:42 AM Stop: 7:42 AM Medication: Heparin Amount: 5000 units Route: I.V. Start: 7:44 AM Stop: 7:44 AM Medication: Versed Amount: 1 mg Route: I.V. Start: 7:44 AM Stop: 7:44 AM Medication: Fentanyl Amount: 50 mcg Route: I.V. Start: 7:51 AM Stop: 7:51 AM Medication: Fentanyl Amount: 50 mcg Route: I.V. Start: 7:51 AM Stop: 7:51 AM Medication: Versed Amount: 1 mg Route: I.V. I, the attending physician, have reviewed and verified all procedure medications. Yes, all medications given per verbal order History/Risk Factors Hypertension: Yes Dyslipidemia: Yes Peripheral Arterial Disease (PAD): Yes Myocardial Infarction (FL): Yes Obesity: Yes Renal Disease: No Tobacco Use: Never Prior Interventions PCI: No CABG: No Valve Surgery: No Report Signatures Finalized by Tera Cristobal MD on 07/31/2021 03:37 PM
--- NOTE | 2021-07-15 07:08 | W.PM.OPSUD ---
Surgery/Procedure H&P Update DATE OF PROCEDURE: July 15, 2021 DATE H&P PERFORMED: 07/14/21 H&P UPDATE INFORMATION: I have reviewed H&P completed within last 30 days, I have examined patient prior to procedure and No changes to prior documentation PREOP DIAGNOSIS: Ventricular tachycardia/ Ventricular fibrillation PRIMARY INDICATION FOR PROCEDURE: Ventricular tachycardia/ Ventricular fibrillation PLANNED PROCEDURE: Left heart cath with possible percutaneous coronary intervention PATIENT REASSESSED PRIOR TO SEDATION, WITH NO CHANGE NOTED: Yes PHYSICAL EXAM: alert, oriented x 3, clear to auscultation bilaterally and regular rate & rhythm AIRWAY EVAL/ANESTHESIA PLAN: ASA IV, Monitored Anesthesia, Local Anesthesia, Risks, benefits & alternatives of sedation and/or procedure discussed and Patient agrees to continue as planned
--- NOTE | 2021-07-15 09:11 | PC.CHAP ---
Pastoral Care Encounter/Spiritual Assessment Type of Contact [] Declined equipment detailer visit [] Patient/Family/Request visit [] Outpatient visit [] Follow-up visit [] Physician referral [] Code/Alert [x] Routine visit [] Staff referral [] Actively dying [] Patient sleeping [] Family support [] [x] Out of room [] Palliative care [] [] Receiving care in room [] Pre-surgical visit [] Trauma [] Long length of stay [x] ICU visit [] Other: testing Relational/Emotional Strength [] Patient feels connected with others/family/visitors/staff [] Distress [] Loneliness/isolation [] Abandonment Spirituality of Patient [] Person of Candida [] Attends Muslim of their Candida [] Believes in Prayer [] Reads Bible or Muslim materials [] There are Spiritual issues to be addressed Fiber Analyst Interventions [x] Prayer [] Active listening [] Non-anxious presence [] Spiritual/emotional support [] Crisis/trauma care [] Spiritual counseling [] Bereavement support [] Provided bereavement packet [] Provided Bible/devotional materials [] Provided toy/stuffed animal, coloring book to patient or family member [] Provided Communion [] Anointing/[place] [] Salvation [x] Completed spiritual assessment [] Other: Impact on Illness or Injury [] Angry [] Fearful [] Anxious [] Often cries [] Exhaustion [] Unable to work [] Unable to attend druze [] Unable to walk/stand [] Unable to read [] Unable to drive [] Unable to eat/drink [] Unable to sleep [] Unable to be with family [] Patient intubated [] Other: Summary Time spent with patient
[2021-07-15] MEDS: FUROsemide 20 mg Tablet PO (09:45)
[2021-07-15] MEDS: hyDRALAzine 50 mg Tablet PO ×3 (09:45→20:05)
[2021-07-15] MEDS: magnesium oxide 400 mg tablet PO (09:45)
[2021-07-15] MEDS: pantoprazole DR 40 mg Tablet PO (09:45)
[2021-07-15] MEDS: gemfibrozil 600 mg Tablet PO ×2 (09:46→17:44)
[2021-07-15] MEDS: amlodipine 10 mg Tablet 5 MG PO (09:46)
[2021-07-15] MEDS: carvedilol 6.25 mg Tablet PO ×2 (09:47→17:43)
--- NOTE | 2021-07-15 10:00 | PC.NURSE ---
Pt arrived from cathlab this AM A&Ox4 and on room air. TR band in place, pulses felt and no hematoma noted.
--- NOTE | 2021-07-15 11:14 | P.PN_ITS ---
Subjective Subjective: Interval history: No issues or arrhythmias overnight. Had an angiogram this morning demonstrating no flow-limiting disease. Received Kayexalate again evening for elevated potassium. Medications: Reviewed: Yes Vitals/I&O/Wt Last Vital Signs Pulse 78 07/15/21 10:01 Resp 18 07/15/21 10:01 BP 117/65 07/15/21 10:01 Pulse Ox 100 07/15/21 10:01 07/14/21 07/15/21 07/15/21 22:59 06:59 14:59 Intake Total 1154.2 / 1254.835 0 / 1254.835 480 / 480 Output Total 300 / 300 300 / 300 Balance 1154.2 / 1254.835 -300 / 954.835 180 / 180 Weight last 48 hrs Weight 158.757 kg Physical Exam Narrative: EXAM NARRATIVE: General exam no distress Neck is supple no lymphadenopathy or thyromegaly Cardiovascular regular rate and rhythm with a 2/6 systolic murmur Lungs clear no wheezing or crackles Abdomen is soft obese nontender with positive bowel sounds. No obvious organomegaly. Extremities no cyanosis clubbing. Trace edema bilaterally. Venous stasis changes noted. Data : 07/15/21 03:27 07/15/21 03:27 A&P Assessment and plan (1) Ventricular tachycardia: Required cardioversion, and then defibrillation Etiology may be secondary to hyperkalemia potassium level better this morning at 5.0. Repeat in the afternoon. Hold DAKOTA inhibitor, spironolactone Note that he is on dranedarone chronically. Was placed on amiodarone here. Car diology will address converting to oral amiodarone Cardiology consultation magnesium was checked and normal Continue carvedilol Restart Norvasc, hydralazine as tolerated Echocardiogram result pending Status: Acute (2) Hyperkalemia: Received Kayexalate, insulin and glucose, calcium gluconate in the emergency department. Holding DAKOTA inhibitor, Aldactone Has received several more doses of Kayexalate Repeat potassium around 1600, and in a.m. Status: Acute (3) Chronic episodic atrial fibrillation: On dronaderone, carvedilol at home Currently on IV amiodarone, carvedilol Heparin drip from admission Xarelto will be resumed tomorrow Status: Acute (4) CAD (coronary artery disease): Serial troponins Status: Acute (5) CHF (congestive heart failure): Await echocardiogram No diuresis needed at this time. Appears relatively compensated. Status: Acute Plan Full code May transfer to CSU Was on heparin drip for DVT prophylaxis. Attestations Medical Necessity Statement*: Needs continued hospital stay for close monitoring following resuscitation, hyperkalemia, sustained ventricular tachycardia Coding Level of Care Code Acute Prepared Foods Team Leader for [facility] Fwd Diagnoses Ventricular tachycardia I47.2 Hyperkalemia E87.5 Chronic episodic atrial fibrillation I48.20 CAD (coronary artery disease) I25.10 CHF (congestive heart failure) I50.9
--- NOTE | 2021-07-15 12:30 | PC.NURSE ---
TR band removed at 1200. Transparent dressing placed on site. No bleeding noted.
[2021-07-15] MEDS: amiodarone 200 mg Tablet 400 MG PO ×2 (14:03→17:43)
--- NOTE | 2021-07-15 15:45 | PC.NURSE ---
Transfered to CSU at 1530 via wheelchair. All belongings with patient. Staff aware.
[2021-07-15 16:51] LABS: Potassium 5.2 mmol/L (3.5-5.1)
--- NOTE | 2021-07-15 18:46 | P.PN_ITS ---
Subjective Subjective: Interval history: Patient underwent coronary angiogram today that did not demonstrate any significant coronary artery disease. He does not have any further episodes of arrhythmias. His potassium is 5 today. Vitals/I&O/Wt Last Vital Signs Temp 98.4 F 07/15/21 13:30 Pulse 82 07/15/21 15:00 Resp 24 H 07/15/21 17:30 BP 133/65 07/15/21 17:30 Pulse Ox 96 07/15/21 17:30 07/15/21 07/15/21 07/15/21 06:59 14:59 22:59 Intake Total 0 / 1254.835 480 / 480 350 / 830 Output Total 300 / 300 700 / 700 300 / 1000 Balance -300 / 954.835 -220 / -220 50 / -170 Weight last 48 hrs Weight 350 lb Physical Exam Narrative: EXAM NARRATIVE: GENERAL: Patient is alert, awake and oriented x3. [] NECK: No jugular vein distension. [] HEENT: No cyanosis. No icterus. No pallor. [] HEART: Regular S1 and S2. No murmur, rub or gallop. [] LUNGS: Clear to auscultate bilaterally. [] ABDOMEN: Soft, nontender and nondistended. Positive bowel sounds. No guarding, rebound or tenderness. [] CENTRAL NERVOUS SYSTEM: Grossly nonfocal. [] EXTREMITIES: Lower extremities with 1+ edema bilaterally. [] Data : 07/16/21 02:47 07/16/21 02:47 A&P Assessment and plan (1) Hyperkalemia: Status: Acute (2) Ventricular tachycardia: Status: Acute (3) CHF (congestive heart failure): Status: Acute (4) Afib: Status: Acute (5) HTN (hypertension): Status: Acute (6) PVD (peripheral vascular disease): Status: Acute (7) Left bundle branch block: Status: Acute Plan Patient had ventricular tachycardia and briefly went into ventricular fibrillation after cardioversion. Was successfully defibrillated back to normal sinus rhythm. Coronary angiogram performed today did not reveal significant coronary artery disease. Etiology of cardiac arrhythmia is was secondary to hyperkalemia. Plan amiodarone drip. Start amiodarone 400 mg twice daily. Can stop heparin drip now. Start Xarelto tonight. Echocardiogram shows normal cardiac function. Patient can be transferred out of ICU today. Monitor on telemetry. If stays stable can be discharged by tomorrow with event monitor. Thank you for involving us with care of this patient. We will continue to follow. Please call with questions. Attestations Medical Necessity Statement*: Care expected to cross 2 midnights. 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
--- NOTE | 2021-07-15 20:11 | PC.NURSE ---
Received report from GILLIAN Vázquez. Patient is s/p [facility] with right radial access. Dressing in place to right wrist remains c,d,i with no s/s of bleeding or hematoma formation. Patient denies pain or other needs. No distress observed. Will continue to monitor.
[2021-07-15 21:19] LABS: Glucose Point of Care 126 mg/dL (70-110)
[2021-07-16] VITALS (7 sets, daily range): BP systolic 135–167; BP diastolic 68–94; PULSE 78–90; RESP 20–25; TEMP 36.8; O2SAT 93–97
[2021-07-16 03:41] LABS: Basophils % 0.3 %; Eosinophils # 0.1 10^3/uL (0.0-0.8); Eosinophils % 1.1 %; Hematocrit 31.3 % (42.0-52.0); Hemoglobin 9.9 g/dL (11.7-16.6); Lymphocytes # 1.1 10^3/uL (0.8-4.8); Lymphocytes % 17.7 %; Mean Corpuscular HGB Conc 31.6 g/dL (30.0-36.0); Mean Corpuscular Hemoglobin 32.5 pg (28.0-34.0); Mean Corpuscular Volume 102.6 fl (80-94); Mean Platelet Volume 9.6 fL (7.4-10.4); Monocytes # 0.6 10^3/uL (0.2-0.9); Monocytes % 9.9 %; Neutrophils # 4.35 10^3/uL (1.8-7.7); Neutrophils % 70.5 %; Nucleated Red Blood Cells % 0 %; Platelet Count 156 10^3/cmm (130-400); Red Blood Count 3.05 10^6/uL (4.1-5.3); Red Cell Distribution Width 14.2 % (12.1-15.1); White Blood Count 6.2 10^3/uL (4.0-10.0)
[2021-07-16] MEDS: morphine 4 mg/mL SDV 1 mL 2 MG IVP (03:47)
[2021-07-16 04:26] LABS: Anion Gap 12.6 (5-19); Blood Urea Nitrogen 33 mg/dL (8-23); Calcium 8.6 mg/dL (8.5-10.5); Carbon Dioxide 21 mmol/L (22-29); Chloride 111 mmol/L (98-107); Glomerular Filtration Rate 55.6 mL/min (90-130); Glucose 118 mg/dL (65-115); Magnesium 1.8 mg/dL (1.7-2.3); Osmolality Calculated 298 mOsm/kg (285-295); Potassium 4.6 mmol/L (3.5-5.1); Sodium 140 mmol/L (136-145)
[2021-07-16] MEDS: magnesium oxide 400 mg tablet PO (08:33)
[2021-07-16] MEDS: amlodipine 10 mg Tablet 5 MG PO (08:33)
[2021-07-16] MEDS: hyDRALAzine 50 mg Tablet PO ×2 (08:33→15:08)
[2021-07-16] MEDS: amiodarone 200 mg Tablet 400 MG PO (08:33)
[2021-07-16] MEDS: carvedilol 6.25 mg Tablet PO (08:34)
[2021-07-16] MEDS: FUROsemide 20 mg Tablet PO (08:34)
[2021-07-16] MEDS: rivaroxaban 10 mg Tablet 15 MG PO (08:34)
[2021-07-16] MEDS: gemfibrozil 600 mg Tablet PO (08:34)
[2021-07-16] MEDS: pantoprazole DR 40 mg Tablet PO (08:34)
[2021-07-16] MEDS: HYDROcodone-acetaminophen 5-325 mg Tablet 1 TAB PO ×2 (08:42→12:59)
--- NOTE | 2021-07-16 08:49 | PM.PN ---
Subjective Subjective: Interval history: Patient is doing well. No more arrhythmias. Vitals/I&O/Wt Last Vital Signs Temp 98.3 F 07/16/21 07:40 Pulse 90 07/16/21 07:40 Resp 20 H 07/16/21 07:40 BP 153/83 07/16/21 07:40 Pulse Ox 97 07/16/21 07:40 07/15/21 07/16/21 07/16/21 22:59 06:59 14:59 Intake Total 1070 / 1550 150 / 1700 Output Total 1075 / 1775 625 / 2400 500 / 500 Balance -5 / -225 -475 / -700 -500 / -500 Weight last 48 hrs Weight 256 lb Physical Exam Narrative: EXAM NARRATIVE: GENERAL: Patient is alert, awake and oriented x3. [] NECK: No jugular vein distension. [] HEENT: No cyanosis. No icterus. No pallor. [] HEART: Regular S1 and S2. No murmur, rub or gallop. [] LUNGS: Clear to auscultate bilaterally. [] ABDOMEN: Soft, nontender and nondistended. Positive bowel sounds. No guarding, rebound or tenderness. [] CENTRAL NERVOUS SYSTEM: Grossly nonfocal. [] EXTREMITIES: Lower extremities with 1+ edema bilaterally. [] Data : 07/16/21 02:47 07/16/21 02:47 A&P Assessment and plan (1) Hyperkalemia: Status: Acute (2) Ventricular tachycardia: Status: Acute (3) CHF (congestive heart failure): Status: Acute (4) Afib: Status: Acute (5) HTN (hypertension): Status: Acute (6) PVD (peripheral vascular disease): Status: Acute (7) Left bundle branch block: Status: Acute Plan Patient had ventricular tachycardia and briefly went into ventricular fibrillation after cardioversion. Was successfully defibrillated back to normal sinus rhythm. Coronary angiogram performed yesterday did not reveal significant coronary artery disease. Etiology of cardiac arrhythmia secondary to hyperkalemia. Continue amiodarone 400mg BID and Xarelto Echocardiogram shows normal cardiac function. Outpatient event monitor Thank you for involving us with care of this patient. Outpatient cardiology follow up. Please call with questions. Attestations Medical Necessity Statement*: Care expected to cross 2 midnights. 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
--- NOTE | 2021-07-16 12:15 | PM.DCS ---
Discharge Providers Date of Admission: 07/14/21 13:00 Date of Discharge: July 16, 2021 Attending Provider at Admission: Andrei Pruitt MD Attending Provider at Discharge: Andrei Pruitt MD Diagnoses at Discharge Discharge Diagnosis (1) Afib: Status: Acute (2) Cardiac arrest with ventricular fibrillation: Status: Acute (3) Hx of ventricular tachycardia: Status: Acute Reason for Visit Reason for Visit: V TACH Hospital Course Hospital Course Kristopher is a 63-year-old white male who presented to the hospital with ventricular tachycardia. He was cardioverted in the emergency department, and then defibrillated for ventricular fibrillation. He got less than 10 seconds of CPR. He was found to have markedly elevated potassium on admission of 6.6. This was lowered with insulin and glucose, Kayexalate. Calcium gluconate was used as a myocardial stabilizer. He received several doses of Kayexalate through his hospital stay to lower his potassium to 4.6 at discharge along with discontinuation of his DAKOTA inhibitor and spironolactone. By time of discharge he was doing quite well. He had no had no further arrhythmias. Magnesium was normal. Cardiology had performed an angiogram found him on July 15 which showed no flow-limiting disease. Echocardiogram was grossly normal. It was thought he could be discharged home with event monitor, not on Aldactone or lisinopril secondary to hyperkalemia, with repeat BMP in 3 to 4 days. Physical Exam Narrative: EXAM NARRATIVE: General exam no distress Neck is supple Cardiovascular regular rate and rhythm Lungs clear Abdomen soft, positive bowel sounds Extremities no sinus clubbing or significant edema. Discharge Data Studies Completed and Pending Completed Studies During Hospitalization Category Date Time Status XR chest 1V portable [id number] Stat Exams 07/14/21 09:06 Completed CV. 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 Laboratory Results WBC 6.2 10^3/uL (4.0-10.0) 07/16/21 02:47 RBC 3.05 10^6/uL (4.1-5.3) L 07/16/21 02:47 Hgb 9.9 g/dL (11.7-16.6) L 07/16/21 02:47 Hct 31.3 % (42.0-52.0) L 07/16/21 02:47 MCV 102.6 fl (80-94) H 07/16/21 02:47 MCH 32.5 pg (28.0-34.0) 07/16/21 02:47 MCHC 31.6 g/dL (30.0-36.0) 07/16/21 02:47 RDW 14.2 % (12.1-15.1) 07/16/21 02:47 Plt Count 156 10^3/cmm (130-400) 07/16/21 02:47 MPV 9.6 fL (7.4-10.4) 07/16/21 02:47 Neut % (Auto) 70.5 % 07/16/21 02:47 Lymph % (Auto) 17.7 % 07/16/21 02:47 [place] % (Auto) 9.9 % 07/16/21 02:47 Eos % (Auto) 1.1 % 07/16/21 02:47 Baso % (Auto) 0.3 % 07/16/21 02:47 Neut # (Auto) 4.35 10^3/uL (1.8-7.7) 07/16/21 02:47 Lymph # (Auto) 1.1 10^3/uL (0.8-4.8) 07/16/21 02:47 [place] # (Auto) 0.6 10^3/uL (0.2-0.9) 07/16/21 02:47 Eos # (Auto) 0.1 10^3/uL (0.0-0.8) 07/16/21 02:47 Baso # (Auto) 0.0 10^3/uL (0.0-0.1) 07/16/21 02:47 Nucleated RBC % (auto) 0 % 07/16/21 02:47 Nucleated RBCs # 0.0 /100WBC 07/16/21 02:47 APTT 104.3 SECONDS (23.9-36.7) H 07/14/21 17:45 Specimen Type Arterial 07/14/21 08:55 Sample Site Radial, left 07/14/21 08:55 ABG pH 7.15 (7.35-7.45) L* 07/14/21 08:55 ABG pCO2 37.0 mmHg (35-45) 07/14/21 08:55 ABG pO2 289.0 mmHg (80.0-100.0) H 07/14/21 08:55 ABG HCO3 12.8 mmol/L (22-26) L 07/14/21 08:55 ABG O2 Saturation 99.7 07/14/21 08:55 ABG Base Excess -15.3 mmol/L (-2.0-2.0) L 07/14/21 08:55 Melvin Test Pos 07/14/21 08:55 A-a O2 Gradient Not Reportable 07/14/21 08:55 Hematocrit 35.4 % (42-52) L 07/14/21 08:55 Hgb O2 Saturation 98.3 % (95-100) 07/14/21 08:55 Carboxyhemoglobin 0.4 %THgb (0.4-20.1) 07/14/21 08:55 Methemoglobin 1.0 % (0.4-1.5) 07/14/21 08:55 Total Hemoglobin 11.6 g/dL (14-18) L 07/14/21 08:55 Sodium 139.0 mmol/L (131-143) 07/14/21 08:55 Potassium 5.6 mmol/L (3.5-5.0) H 07/14/21 08:55 Glucose 117.0 mg/dL (70-115) H 07/14/21 08:55 Ionized Calcium 1.3 mmol/L (1.1-1.4) 07/14/21 08:55 O2 Delivery Device Nrb 07/14/21 08:55 Meat Department Manager ID Havar 07/14/21 08:55 Sodium 140 mmol/L (136-145) 07/16/21 02:47 Potassium 4.6 mmol/L (3.5-5.1) 07/16/21 02:47 Chloride 111 mmol/L (98-107) H 07/16/21 02:47 Carbon Dioxide 21 mmol/L (22-29) L 07/16/21 02:47 Anion Gap 12.6 (5-19) 07/16/21 02:47 BUN 33 mg/dL (8-23) H 07/16/21 02:47 Creatinine 1.3 mg/dL (0.7-1.2) H 07/16/21 02:47 GFR Calculation 55.6 mL/min (90-130) L 07/16/21 02:47 Glucose 118 mg/dL (65-115) H 07/16/21 02:47 POC Glucose 126 mg/dL (70-110) H 07/15/21 19:54 Calculated Osmolality 298 mOsm/kg (285-295) H 07/16/21 02:47 Calcium 8.6 mg/dL (8.5-10.5) 07/16/21 02:47 Magnesium 1.8 mg/dL (1.7-2.3) 07/16/21 02:47 Total Bilirubin 0.3 mg/dL (0.15-1.2) 07/15/21 03:27 AST 25 U/L (0-40) 07/15/21 03:27 ALT 14 U/L (0-41) 07/15/21 03:27 Alkaline Phosphatase 44 IU/L (40-130) 07/15/21 03:27 Creatine Kinase 90 U/L (39-308) 07/14/21 09:58 Troponin T Baseline 62 ng/L (0-15) H 07/14/21 09:58 Troponin T 120 Minute 74.63 ng/L (0-15) H 07/14/21 11:24 Delta Troponin T 12.63 ABS# (0-10) H* 07/14/21 11:24 Troponin T Hi Sens 6Hr 69.25 ng/L (0-15) H 07/14/21 17:45 Troponin T Hi Sens 6Hr Delta 7.25 ng/L (0-12) 07/14/21 17:45 Total Protein 5.3 g/dL (6.6-8.7) L 07/15/21 03:27 Albumin 3.2 g/dL (3.5-5.2) L 07/15/21 03:27 Globulin 2.1 g/dL (1.3-4.6) 07/15/21 03:27 Vitamin B12 898 pg/mL (232-1245) 07/14/21 09:58 Folate > 20.0 ng/mL (4.5-32.2) 07/14/21 09:58 TSH 1.18 uIU/mL (0.27-4.20) 07/14/21 09:58 Urine Color Yellow (Yellow) 07/14/21 13:15 Urine Appearance Clear (CLEAR) 07/14/21 13:15 Urine pH 5 (5-7) 07/14/21 13:15 Ur Specific [place] 1.020 (1.005-1.030) 07/14/21 13:15 Urine Protein Neg (Negative) 07/14/21 13:15 Urine Glucose (UA) Norm (Normal) 07/14/21 13:15 Urine Ketones Negative (Negative) 07/14/21 13:15 Urine Blood Neg (Negative) 07/14/21 13:15 Urine Nitrate Negative (Negative) 07/14/21 13:15 Urine Bilirubin Neg (Negative) 07/14/21 13:15 Urine Urobilinogen Neg mg/dL (Negative) 07/14/21 13:15 Ur Leukocyte Esterase Negative (Negative) 07/14/21 13:15 Vitals Last Vital Signs Temp 98.3 F 07/16/21 07:40 Pulse 88 07/16/21 11:40 Resp 25 H 07/16/21 11:40 BP 167/94 07/16/21 11:40 Pulse Ox 94 07/16/21 11:40 Discharge Plan Discharge Patient Disposition: Home Health Service Condition: Stable Prescriptions: New Pacerone 200 mg Tablet 400 mg PO BID Qty: 90 0RF hydrocodone-acetaminophen 5-325 mg Tablet 1 tab PO Q4H PRN (Reason: Moderate Pain) Qty: 20 0RF pantoprazole 40 mg Tablet,Delayed Release (Dr/Ec) 40 mg PO DAILY Qty: 30 0RF Norvasc 10 mg tablet 10 mg PO DAILY Qty: 30 0RF Continued carvedilol 6.25 mg tablet 6.25 mg PO BID 0RF Rx Instructions: must administer with a meal/food cholecalciferol (vitamin D3) 10 mcg (400 unit) capsule 10 mcg PO DAILY 0RF gemfibrozil 600 mg tablet 600 mg PO BID 0RF hydralazine 50 mg tablet 50 mg PO TID 0RF magnesium oxide 400 mg magnesium tablet 400 mg PO DAILY 0RF folic acid 1 mg tablet 1 mg PO DAILY 0RF vitamin B complex [B Complex-Vitamin B12] Tablet 1 tab PO DAILY 0RF omega-3 fatty acids [Fish Oil Concentrate] 1,000 mg capsule 1,000 mg PO DAILY 0RF furosemide 20 mg tablet 20 mg PO DAILY 0RF Xarelto 15 mg tablet 15 mg PO DAILY Qty: 30 0RF Rx Instructions: must administer with evening meal Discontinued amlodipine 10 mg tablet 5 mg PO DAILY 0RF lisinopril 40 mg tablet 40 mg PO BID 0RF spironolactone 25 mg tablet 25 mg PO DAILY 0RF Multaq 400 mg Tablet 400 mg PO BID 0RF Rx Instructions: must administer with a meal/food Discharge Orders: Discharge Order (Routine); Ordered 07/16/21 Ordered By: Andrei Pruitt Other Ambulatory Orders: MCT/Event Monitor 21 Days (Routine) Timeframe: 1 Day Facility: [facility] - Location: Radiology Ordered By: Andrei Pruitt Referrals: Carly Mancia MD [Physician] - 7-10 days (At this appointment, adjustment of amiodarone dose will occur. [facility] will be calling to schedule a cardiology followup with Dr. Mancia to be seen in approx. 7 to 10 days. If you don't hear from them by Tuesday, please give them a call. Thank you) Discharge Diet: Cardiac Discharge Activity: Increase activity as tolerated Patient Instructions: Hydrocodone/Acetaminophen (By mouth) (Vicodin, [place], Lortab), Amiodarone (By mouth) (Cordarone, Pacerone), Amlodipine (By mouth) (Hypertenipine-2.5, Norvasc), Pantoprazole (By mouth) (Protonix), Opioid Safety Activity Restrictions/Additional Instructions: Follow-up with cardiology as noted Follow-up with primary care provider 3 to 5 days with BMP on follow-up to check potassium. Your spironolactone, Multaq, and Aldactone have been discontinued. Please educate on low potassium diet Set up event monitor. Discharge Attestations Time Spent in Discharge Care*: greater than 30 min Quality Metrics Clinical Quality Measures [ No reported AMI, CVA or VTE this stay] Coding Level of Care Code Acute Chg FW DC note Diagnoses Afib I48.91 Cardiac arrest with ventricular fibrillation I46.9; I49.01 Hx of ventricular tachycardia Z86.79
== END 2021-07-16 15:00 | disposition home health service (06) | DRG 287 ==
LOC: ER 09:22 → ICU 14:55 → ER IP 16:33 → ICU 16:33 → CSU 07-15 16:12
PROVIDERS: Internal Medicine; Admitting Provider Internal Medicine; Emergency Provider Family Medicine; PCP Family Medicine Adult Medicine; Visit Provider Internal Medicine
PROC: B211YZZ Fluoroscopy of Multiple Coronary Arteries using Other Contrast (ICD-10-PCS; principal; 2021-07-15 07:00)
DX: I47.2 Ventricular tachycardia (principal); Z68.43 Body mass index [BMI] 50.0-59.9, adult; I49.01 Ventricular fibrillation; I48.20 Chronic atrial fibrillation, unspecified; I46.2 Cardiac arrest due to underlying cardiac condition; I25.118 Atherosclerotic heart disease of native coronary artery with other forms of angina pectoris; E87.5 Hyperkalemia; I11.0 Hypertensive heart disease with heart failure; I50.9 Heart failure, unspecified; I25.2 Old myocardial infarction; E78.5 Hyperlipidemia, unspecified; I44.7 Left bundle-branch block, unspecified; G47.33 Obstructive sleep apnea (adult) (pediatric); I73.9 Peripheral vascular disease, unspecified; E66.01 Morbid (severe) obesity due to excess calories; Z79.01 Long term (current) use of anticoagulants
CPT/HCPCS: 36415; 36416; 71045; 80048; 80051; 80053; 81003; 82330; 82550; 82607; 82746; 82805; 82962; 83735; 84132; 84443; 84484; 85025; 85730; 93005; 93454; 97162; 99291; 99292; C1769; C1887; C1894; C8929; J0610; J1644; J1815; J2250; J2270; J3010; J3490; J7030; Q0163; Q9956; Q9967

== ENCOUNTER 2021-07-20 15:54 | Outpatient (CLI) | payer MEDICARE, SELFPAY ==
[2021-07-20 17:28] LABS: Anion Gap 19.9 (5-19); Blood Urea Nitrogen 31 mg/dL (8-23); Calcium 10.1 mg/dL (8.5-10.5); Carbon Dioxide 20 mmol/L (22-29); Chloride 106 mmol/L (98-107); Glomerular Filtration Rate 55.6 mL/min (90-130); Glucose 91 mg/dL (65-115); Osmolality Calculated 300 mOsm/kg (285-295); Potassium 3.9 mmol/L (3.5-5.1); Sodium 142 mmol/L (136-145)
== END 2021-07-20 15:55 | disposition home or self-care (01) ==
LOC: LAB 15:58
PROVIDERS: PCP Family Medicine Adult Medicine; Visit Provider Family Medicine Adult Medicine
DX: I47.2 Ventricular tachycardia (principal)
CPT/HCPCS: 80048

== ENCOUNTER → 2021-10-27 10:59 | Outpatient (BNVA) | payer MEDICARE, SELFPAY | PROVIDERS: PCP Family Medicine Adult Medicine; Visit Provider Nurse Practitioner Family | DX: I47.2 Ventricular tachycardia (principal); I25.10 Atherosclerotic heart disease of native coronary artery without angina pectoris; E78.5 Hyperlipidemia, unspecified; Z86.39 Personal history of other endocrine, nutritional and metabolic disease; I12.9 Hypertensive chronic kidney disease with stage 1 through stage 4 chronic kidney disease, or unspecified chronic kidney disease; N18.30 Chronic kidney disease, stage 3 unspecified | CPT/HCPCS: 80053; 80061; 85025; 99213; 99214 ==

== ENCOUNTER 2021-11-26 | Outpatient (CLI) | payer MEDICARE, SELFPAY | END 2021-11-26 23:59 | disposition home or self-care (01) | LOC: LAB 01-11 16:32 | PROVIDERS: PCP Family Medicine Adult Medicine; Visit Provider Family Medicine Adult Medicine | DX: Z53.9 Procedure and treatment not carried out, unspecified reason (principal) | CPT/HCPCS: 99213 ==

== ENCOUNTER → 2022-09-08 08:33 | Outpatient (BNVA) | payer MEDICARE, MEDICAID, SELFPAY | PROVIDERS: PCP Family Medicine Adult Medicine; Visit Provider Otolaryngology | DX: C44.201 Unspecified malignant neoplasm of skin of unspecified ear and external auricular canal (principal); I25.10 Atherosclerotic heart disease of native coronary artery without angina pectoris; I10 Essential (primary) hypertension; I48.20 Chronic atrial fibrillation, unspecified; E66.01 Morbid (severe) obesity due to excess calories; Z68.43 Body mass index [BMI] 50.0-59.9, adult | CPT/HCPCS: 99204 ==

== ENCOUNTER 2022-09-30 10:08 | Day surgery (SDC) | payer MEDICARE, SELFPAY ==
[2022-09-29 10:35] VITALS: BMI 48.8
[2022-09-30] VITALS (10 sets, daily range): BP systolic 138–179; BP diastolic 64–95; PULSE 63–71; RESP 16–20; TEMP 36.2–36.6; O2SAT 91–99
[2022-09-30] MEDS: sodium chloride 0.9% 1,000 ML 30 ML IV (10:52)
--- NOTE | 2022-09-30 10:55 | W.PM.OPSUD ---
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 PLANNED PROCEDURE: Operation Date: 09/30/22 12:00 Proposed Procedures p [id number] - excision of right external ear malignancy with margins and repair. ( possible skin graft reconstruction from right neck C44.201(Right) - Luis Peralta MD s Skin Graft(Right) - Luis Peralta MD
[2022-09-30] MEDS: HYDROmorphone 1 mg/mL INJ 1 mL 0.5 MG IVP (11:21)
--- NOTE | 2022-09-30 11:33 | ECG_ITS ---
[facility] Test Date: 2022-09-30 Pat Name: Kristopher Jesus Department: Room: Gender: Male Manager Hvac: : 1958-02-28 Requested By: Luis Montoya Order Number: [id number] Hamzah MD: Carly Mancia M.D. Measurements Intervals [place] Rate: 65 P: 0 FL: 0 QRS: -31 QRSD: 173 T: 73 QT: 494 QTc: 516 Interpretive Statements Normal sinus rhythm with a first-degree AV block MARKED LEFT AXIS DEVIATION [QRS AXIS < -30] LEFT BUNDLE BRANCH BLOCK [120+ ms QRS DURATION, 80+ ms Q/S IN V1/V2, 85+ ms R IN I/aVL/V5/V6] INTERPRETATION BASED ON A DEFAULT AGE OF 40 YEARS Compared to ECG 07/14/2021 12:03:48 Left-axis deviation now present Sinus rhythm no longer present First degree AV block no longer present Electronically Signed On 10-01-2022 22:15:49 CDT by Carly Mancia M.D. [email or web address]
[2022-09-30] MEDS: levofloxacin-dextrose 5 % 750 MG/150 ML PREMIX 100 MG IV (11:42)
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
[2022-09-30] MEDS: neomycin-poly-bacitracin oint 28 gm 1 APPLIC TOPICAL (12:41)
--- NOTE | 2022-09-30 12:53 | PM.OP ---
Operative Report Date of procedure: September 30, 2022 Pre-op diagnosis: Preop Diagnosis Malignant external ear lesion right Post-op diagnosis: Malignant right external ear lesion with clear margins. Post-op findings: Exophytic 2.5 x 2.0 cm lesion on lateral aspect of right external ear in the scapha region and between the helix and antihelix. Procedure done: Wedge excision of external ear malignant lesion with complex closure. Implants: No implants Specimens removed/disposition: Wedge excision right external ear malignant lesion with margins Pathology: Same Surgeon: Luis Peralta MD Anesthesia: General and Local Estimated blood loss: 25 mL Complications: No complications encountered Findings: Patient initially had right external ear lesion on lateral surface in the mid to upper portion not extending to the helical rim. This continued to grow over time and bleed and scab over. As a result this patient was seen in the office and diagnosed with having a malignant lesion and this would require excision in the operating room so frozen section could be utilized. 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 He is brought to the operating room at this time to undergo excision of this lesion with repair. The procedures risks and complications were explained in detail. Informed consent was granted and witnessed. Risks discussed included bleeding infection numbness scarring swelling bruising recurrence cosmetic change and need for additional treatment as well as anesthetic risks. With these things understood informed consent was granted and witnessed. Procedure: Procedure: The patient was placed on the operating table in the supine position. Adequate general endotracheal tube anesthesia was obtained. The patient's right ear sign the site was noted. It was cleansed with alcohol. The old scab covering the lesion was removed. A field block with local was accomplished both anterior and posteriorly. This was done with a total of 11.9 mL of 2% Xylocaine with 1-100,000 epinephrine. Patient was then prepped and draped in usual fashion. A timeout was accomplished identifying the patient date of plan procedure allergies fire risk and medications given. With all in agreement the procedure continued. Patient did receive IV antibiotics for prophylaxis. A marking pen was used to outline a wedge excision extending from the marcus bowl at the apex and then spreading with the widest part at the helical rim. This was incised through and through with a 15 blade. The specimen was forwarded to pathology for frozen section margins. While that was pending excess cartilage was trimmed from the posterior edge. Then hemostasis was attained with bipolar cautery. Frozen section returned as clear margins. The defect was then closed with running 4-0 nylon suture. After closure area was cleansed. This did leave a bit of a pointed ear posterior and superior. The area was cleansed. Neosporin ointment was applied followed by a sterile Band-Aid. Drapes were removed and the patient was returned to anesthesia for wake-up and extubation. Patient tolerated the procedure well had an estimated blood loss of 25 mL and arrived in recovery in stable condition.
--- NOTE | 2022-09-30 13:15 | PC.NURSE ---
Pt awake, nasal trumpet removed, pt tolerated well.
[2022-09-30] MEDS: oxyCODONE-APAP 10-325 mg Tablet 1 TAB PO (14:01)
--- NOTE | 2022-09-30 14:33 | ANE.PACU2 ---
Inpatient post-anesthesia follow up: Airway intact: Yes Vital signs: Temperature 97.1 F Pulse Rate 66 Respiratory Rate 18 Blood Pressure 143/64 Pulse Oximetry 93 Oxygen Delivery Me thod Room Air Oxygen Flow Rate 6 Fraction of Inspir ed Oxygen Hydration adequate: Yes Nausea and vomiting: No Pain level: 2 Mental status: Baseline
== END 2022-09-30 14:17 | disposition home or self-care (01) ==
PROVIDERS: PCP Family Medicine Adult Medicine; Visit Provider Otolaryngology
PROC: (CPT 11644; principal; 2022-09-30 11:50)
DX: C44.212 Basal cell carcinoma of skin of right ear and external auricular canal (principal); I13.0 Hypertensive heart and chronic kidney disease with heart failure and stage 1 through stage 4 chronic kidney disease, or unspecified chronic kidney disease; N18.30 Chronic kidney disease, stage 3 unspecified; I50.9 Heart failure, unspecified; I44.0 Atrioventricular block, first degree; I44.7 Left bundle-branch block, unspecified; I48.20 Chronic atrial fibrillation, unspecified; I25.10 Atherosclerotic heart disease of native coronary artery without angina pectoris; I25.2 Old myocardial infarction; I73.9 Peripheral vascular disease, unspecified; J90 Pleural effusion, not elsewhere classified; E78.5 Hyperlipidemia, unspecified; G47.33 Obstructive sleep apnea (adult) (pediatric); E66.01 Morbid (severe) obesity due to excess calories; Z68.42 Body mass index [BMI] 45.0-49.9, adult; Z79.01 Long term (current) use of anticoagulants; Z79.899 Other long term (current) drug therapy; Z88.0 Allergy status to penicillin
CPT/HCPCS: 11644; 13152; 88307; 88331; 93005; J1100; J1170; J1956; J2250; J2405; J2704; J3010; J3490; J7030

== ENCOUNTER → 2022-10-08 08:35 | Outpatient (BNVA) | payer MEDICARE, SELFPAY | PROVIDERS: PCP Family Medicine Adult Medicine; Visit Provider Otolaryngology | DX: Z48.817 Encounter for surgical aftercare following surgery on the skin and subcutaneous tissue (principal); C44.212 Basal cell carcinoma of skin of right ear and external auricular canal | CPT/HCPCS: 99024 ==

== ENCOUNTER → 2022-10-13 10:16 | Outpatient (BNVA) | payer MEDICARE, SELFPAY | PROVIDERS: PCP Family Medicine Adult Medicine; Visit Provider Otolaryngology | DX: Z48.817 Encounter for surgical aftercare following surgery on the skin and subcutaneous tissue (principal); C44.212 Basal cell carcinoma of skin of right ear and external auricular canal | CPT/HCPCS: 99024 ==

== ENCOUNTER → 2022-10-15 09:20 | Outpatient (BNVA) | payer MEDICARE, SELFPAY | PROVIDERS: PCP Family Medicine Adult Medicine; Visit Provider Family Medicine Adult Medicine | DX: N18.30 Chronic kidney disease, stage 3 unspecified (principal); I10 Essential (primary) hypertension; E78.5 Hyperlipidemia, unspecified | CPT/HCPCS: 80053; 80061; 84443; 85025 ==

== ENCOUNTER 2022-12-28 13:00 | Outpatient (CLI) | payer MEDICARE, SELFPAY | END 2022-12-28 13:01 | disposition home or self-care (01) | LOC: SLEEP 12-29 12:22 | PROVIDERS: PCP Family Medicine Adult Medicine; Visit Provider Family Medicine Adult Medicine | DX: G47.33 Obstructive sleep apnea (adult) (pediatric) (principal) | CPT/HCPCS: G0399 ==

== ENCOUNTER → 2023-01-18 09:44 | Outpatient (BNVA) | payer MEDICARE, SELFPAY | PROVIDERS: PCP Family Medicine Adult Medicine; Visit Provider Family Medicine Adult Medicine | DX: N18.30 Chronic kidney disease, stage 3 unspecified (principal); I12.9 Hypertensive chronic kidney disease with stage 1 through stage 4 chronic kidney disease, or unspecified chronic kidney disease; R73.03 Prediabetes | CPT/HCPCS: 80053; 83036; 84443; 85025 ==

== ENCOUNTER → 2023-11-04 11:39 | Outpatient (BNVA) | payer MEDICARE, SELFPAY | PROVIDERS: PCP Family Medicine Adult Medicine; Visit Provider Family Medicine Adult Medicine | DX: I11.0 Hypertensive heart disease with heart failure (principal); I50.9 Heart failure, unspecified; I25.10 Atherosclerotic heart disease of native coronary artery without angina pectoris; E78.5 Hyperlipidemia, unspecified; R73.03 Prediabetes; N18.30 Chronic kidney disease, stage 3 unspecified | CPT/HCPCS: 80053; 80061; 83036; 84443 ==

== ENCOUNTER → 2023-11-30 11:25 | Outpatient (BNVA) | payer MEDICARE, SELFPAY | PROVIDERS: PCP Family Medicine Adult Medicine; Referring Provider Family Medicine Adult Medicine; Visit Provider Internal Medicine Cardiovascular Disease | DX: R01.1 Cardiac murmur, unspecified (principal); I13.0 Hypertensive heart and chronic kidney disease with heart failure and stage 1 through stage 4 chronic kidney disease, or unspecified chronic kidney disease; N18.30 Chronic kidney disease, stage 3 unspecified; I50.9 Heart failure, unspecified; I48.20 Chronic atrial fibrillation, unspecified; E78.00 Pure hypercholesterolemia, unspecified; I25.10 Atherosclerotic heart disease of native coronary artery without angina pectoris; I73.9 Peripheral vascular disease, unspecified | CPT/HCPCS: 99214 ==

== ENCOUNTER 2023-12-09 11:27 | Outpatient (CLI) | payer MEDICARE, SELFPAY ==
--- NOTE | 2023-12-09 11:33 | USCV_ITS ---
Kristopher Jesus Age: 65 Gender: M : 02/28/1958 Exam Date: 12/09/2023 11:57 Ordering Phys: Carly Mancia MD ([email or web address]) Technologist: CT [place] [facility] [place]: murmur BP: 146 / 81 HR: 55 Rhythm: Sinus Technical Quality: Adequate MEASUREMENTS (Male / Female) Normal Values 2D ECHO LVOT Diameter 2.0 cm LV Ejection Fraction MOD 2C 47.4 % LV Ejection Fraction 2C AL 46.6 % LA Diameter 5.7 cm RA Systolic Volume 4C AL 158.4 ml RA Systolic Volume 4C MOD 152.7 ml LA Sys Volume AL 179.9 cm cubed LA Sys Volume Index AL 58.5 cm cubed/m squared Aorta at Sinotubular Diameter 2.6 cm M-MODE LA Ao Ratio MM 2.0 AV Cusp Separation MM 2.5 cm DOPPLER AV Peak Velocity 177.0 cm/s LVOT Peak Velocity 156.0 cm/s AV Area Cont Eq vti 3.2 cm squared AV Area Cont Eq pk 2.8 cm squared MV Peak Velocity 399.0 cm/s MV Area PHT 4.2 cm squared Mitral E to A Ratio 1.8 TV Peak Velocity 255.5 cm/s TR Peak Velocity 260.0 cm/s TR Peak Gradient 27.0 mmHg TV Peak E Velocity 59.0 cm/s Right Atrial Pressure 3.0 mmHg Pulmonary Artery Systolic Pressu 30.0 mmHg PV Peak Velocity 154.5 cm/s FINDINGS Left Ventricle Diffuse hypokinesia of the left ventricle with ejection fraction of 47%. Mildly dilated LV cavity.Grade III/IV diastolic dysfunction (restrictive filling pattern), severely elevated filling pressures. Right Ventricle Possibly normal size ejection fraction Right Atrium Moderately dilated Left Atrium Severely dilated, left atrial end-systolic volume index of 64 mL/m squared Mitral Valve Mild mitral annular calcification. Mild mitral valve regurgitation. Aortic Valve No gross valvular abnormalities noted Tricuspid Valve Xajh-lh-abylrzsv tricuspid valve regurgitation. Pulmonic Valve Pulmonic valve not well visualized. Pericardium No pericardial effusion. Aorta Normal aortic annulus size. IVC Inferior vena cava not visualized. CONCLUSIONS Diffuse hypokinesia of the left ventricle with ejection fraction of 47%. Mildly dilated LV cavity.Grade III/IV diastolic dysfunction (restrictive filling pattern), severely elevated filling pressures. Possibly normal RV size and ejection fraction. Severely dilated, left atrial end-systolic volume index of 64 mL/m squared. Moderately dilated right atrium Mild mitral annular calcification. Mild mitral valve regurgitation. Nghm-lo-wdtbdmcx tricuspid valve regurgitation. There is no pericardial effusion. There are no intracardiac masses. Compared to the study from 07/14/2021, there is significant drop in the LV ejection fraction Dr Carly Mancia MD [facility] (Electronically Signed) Final Date: 09 December 2023 20:06 S
== END 2023-12-09 11:28 | disposition home or self-care (01) ==
LOC: RAD 11:27
PROVIDERS: PCP Family Medicine Adult Medicine; Visit Provider Family Medicine Adult Medicine
DX: R01.1 Cardiac murmur, unspecified (principal); I25.10 Atherosclerotic heart disease of native coronary artery without angina pectoris; I44.7 Left bundle-branch block, unspecified; I10 Essential (primary) hypertension; I50.30 Unspecified diastolic (congestive) heart failure; I07.1 Rheumatic tricuspid insufficiency
CPT/HCPCS: 93306

== ENCOUNTER 2024-02-02 15:07 | Outpatient (CLI) | payer MEDICARE, SELFPAY ==
[2024-02-02 16:00] LABS: Basophils % 0.8 %; Eosinophils # 0.3 10^3/uL (0.0-0.8); Eosinophils % 5.5 %; Hematocrit 33.6 % (37-53); Lymphocytes # 0.8 10^3/uL (0.8-4.8); Lymphocytes % 14.8 %; Mean Corpuscular HGB Conc 31.8 g/dL (30-55); Mean Corpuscular Volume 91.1 fl (82-101); Mean Platelet Volume 8.8 fL (7.4-10.4); Monocytes # 0.5 10^3/uL (0.2-0.9); Monocytes % 8.5 %; Neutrophils # 3.69 10^3/uL (1.8-7.7); Neutrophils % 69.8 %; Nucleated Red Blood Cells % 0 %; Platelet Count 228 10^3/cmm (157-399); Red Blood Count 3.69 10^6/uL (3.85-5.65); Red Cell Distribution Width 15.8 % (12.1-15.1); White Blood Count 5.28 10^3/uL (3.29-11.43)
[2024-02-02 16:21] LABS: INR 1.02 (0.8-1.2)
[2024-02-02 17:10] LABS: Alanine Aminotransferase 9 U/L (0-41); Albumin Level 4.4 g/dL (3.5-5.2); Alkaline Phosphatase 72 U/L (40-130); Anion Gap 19.6 (5-19); Aspartate Amino Transferase 20 U/L (0-40); Blood Urea Nitrogen 35 mg/dL (8-23); Calcium 9.7 mg/dL (8.5-10.5); Carbon Dioxide 21 mmol/L (22-29); Chloride 104 mmol/L (98-107); Globulin 3.1 g/dL (1.3-4.6); Glomerular Filtration Rate 43.5 mL/min (90-130); Glucose 128 mg/dL (65-115); Osmolality Calculated 302 mOsm/kg (285-295); Potassium 3.6 mmol/L (3.5-5.1); Sodium 141 mmol/L (136-145); Thyroid Stimulating Hormone 1.87 uIU/mL (0.27-4.20); Total Bilirubin 0.4 mg/dL (0.15-1.2); Total Protein 7.5 g/dL (6.6-8.7)
== END 2024-02-02 15:08 | disposition home or self-care (01) ==
LOC: LAB 15:12
PROVIDERS: PCP Family Medicine Adult Medicine; Visit Provider Internal Medicine Cardiovascular Disease
DX: R73.03 Prediabetes (principal); I50.9 Heart failure, unspecified; I73.9 Peripheral vascular disease, unspecified; E66.01 Morbid (severe) obesity due to excess calories; Z68.43 Body mass index [BMI] 50.0-59.9, adult; I44.7 Left bundle-branch block, unspecified; M19.90 Unspecified osteoarthritis, unspecified site; I48.20 Chronic atrial fibrillation, unspecified; N18.31 Chronic kidney disease, stage 3a; C44.212 Basal cell carcinoma of skin of right ear and external auricular canal; D63.1 Anemia in chronic kidney disease; E78.2 Mixed hyperlipidemia; I25.10 Atherosclerotic heart disease of native coronary artery without angina pectoris; I13.0 Hypertensive heart and chronic kidney disease with heart failure and stage 1 through stage 4 chronic kidney disease, or unspecified chronic kidney disease
CPT/HCPCS: 36415; 80053; 84443; 85025; 85610; 99214

== ENCOUNTER 2024-03-02 08:17 | Outpatient (CLI) | payer MEDICARE, SELFPAY ==
[2024-03-02 08:35] LABS: Basophils % 0.4 %; Eosinophils # 0.2 10^3/uL (0.0-0.8); Eosinophils % 4.2 %; Hematocrit 34.5 % (37-53); Lymphocytes % 20.8 %; Mean Corpuscular HGB Conc 32.2 g/dL (30-55); Mean Corpuscular Hemoglobin 28.8 pg (27-33); Mean Corpuscular Volume 89.6 fl (82-101); Mean Platelet Volume 8.4 fL (7.4-10.4); Monocytes # 0.5 10^3/uL (0.2-0.9); Monocytes % 10.3 %; Neutrophils # 3.17 10^3/uL (1.8-7.7); Neutrophils % 63.9 %; Nucleated Red Blood Cells % 0 %; Platelet Count 190 10^3/cmm (157-399); Red Blood Count 3.85 10^6/uL (3.85-5.65); Red Cell Distribution Width 14.3 % (12.1-15.1); White Blood Count 4.96 10^3/uL (3.29-11.43)
== END 2024-03-02 08:18 | disposition home or self-care (01) ==
LOC: LAB 08:18
PROVIDERS: PCP Family Medicine Adult Medicine; Visit Provider Nurse Practitioner Family
DX: I10 Essential (primary) hypertension (principal); I25.10 Atherosclerotic heart disease of native coronary artery without angina pectoris
CPT/HCPCS: 36415; 85025

== ENCOUNTER 2024-03-12 22:55 | Observation (INO) | payer MEDICARE, SELFPAY ==
[2024-03-12] VITALS (14 sets, daily range): BP systolic 141–155; BP diastolic 110–122; PULSE 102–120; RESP 14–26; TEMP 36.7; O2SAT 88–95; BMI 55.7
--- NOTE | 2024-03-12 22:58 | XRR_ITS ---
PROCEDURE INFORMATION: Exam: XR Chest Exam date and time: 03/12/2024 11:28 PM Age: 66 years old Clinical indication: Pain and condition or disease; Cardiovascular condition or disease; Other: Chest pain; Chest pressure TECHNIQUE: Imaging protocol: Radiologic exam of the chest. Views: 1 view. COMPARISON: CR XR chest 1V portable [id number] 07/14/2021 9:10 AM FINDINGS: Lungs: Patchy bilateral largely lower lobe ground-glass airspace opacities reflecting alveolar edema and/or pneumonic infiltrates. Pleural spaces: Unremarkable. No pleural effusion. No pneumothorax. Heart/Mediastinum: Cardiomegaly, pulmonary vascular congestion interstitial edema. Hiatal hernia suspected. Bones/joints: Unremarkable. XR/XR chest 1V portable [id number] IMPRESSION: 1. Cardiomegaly, pulmonary vascular congestion interstitial edema. 2. Patchy bilateral largely lower lobe ground-glass airspace opacities reflecting alveolar edema and/or pneumonic infiltrates. 3. Hiatal hernia suspected.
--- NOTE | 2024-03-12 22:58 | ECG_ITS ---
[facility] Test Date: 2024-03-12 Pat Name: Kristopher Jesus Department: Room: Gender: Male Estate Planning Director: : 1958-02-28 Requested By: Albaro Garvey Order Number: [id number] Goodson MD: Tera Cristobal M.D. Measurements Intervals [place] Rate: 108 P: 0 [place]: 0 QRS: 58 QRSD: 182 T: -69 QT: 397 QTc: 533 Interpretive Statements ATRIAL FIBRILLATION WITH RAPID VENTRICULAR RESPONSE WITH ABERRANT CONDUCTION OR VENTRICULAR PREMATURE COMPLEXES LEFT BUNDLE BRANCH BLOCK [120+ ms QRS DURATION, 80+ ms Q/S IN V1/V2, 85+ ms R IN I/aVL/V5/V6] No previous ECG available for comparison Electronically Signed On 03-13-2024 16:26:07 CDT by Tera Cristobla M.D. [id number]
--- NOTE | 2024-03-12 23:03 | ED_ITS ---
HPI - Chest Pain 2 General: Chief Complaint: Chest Pain Stated Complaint: chest pain Time Seen by Provider: 03/12/24 22:59 History of Present Illness: Patient arrives via EMS with complaints of chest pain that began earlier tonight. Patient said heart started racing he started having chest pain and anxiety and called EMS. Patient does have a history of A-fib is on multiple medicines for this such as amiodarone and carvedilol hydralazine furosemide aspirin patient denies any nausea vomiting diaphoresis. Patient says he is a little more short of breath than normal. Patient does have a history of CHF, CAD, left bundle branch block, chronic A-fib, cardiac arrest with V-fib Related Data Home Medications Medication Instructions Recorded Confirmed cholecalciferol (vitamin D3) 125 125 mcg PO DAILY 12/14/20 02/02/24 mcg (5,000 unit) tablet (Vitamin D3) cyanocobalamin (vitamin B-12) 1,000 mcg PO DAILY 12/14/20 02/02/24 1,000 mcg tablet (Vitamin B-12) magnesium oxide 400 mg PO DAILY 01/27/21 02/02/24 omega-3 fatty acids 1,000 mg 1,000 mg PO DAILY 01/27/21 02/02/24 capsule (Fish Oil Concentrate) [id number]-[id number] 300 mcg-K 60 1 tab PO DAILY 10/27/21 02/02/24 mcg-lycop 600 mcg-lutein 300 mcg tablet (Centrum Silver Men) Previous Rx's Medication Instructions Recorded aspirin 325 mg tablet,delayed 325 mg PO DAILY circulation #100 10/08/22 release (Sumaya Aspirin) tabs auto CPAP 6-16 setting #1 ea 03/22/23 hydralazine 100 mg tablet 100 mg PO TID blood pressure #300 06/09/23 tabs hydralazine 50 mg tablet 50 mg PO TID blood pressure #300 06/09/23 tabs pantoprazole 40 mg tablet,delayed 40 mg PO 1XD #100 tabs 06/09/23 release amiodarone 200 mg tablet (Pacerone) 200 mg PO DAILY #180 tabs 09/20/23 amlodipine 10 mg tablet (Norvasc) 10 mg PO DAILY #90 tabs 09/28/23 folic acid 1 mg tablet 1 mg PO DAILY #100 tabs 11/25/23 furosemide 20 mg tablet See Rx Instructions .Route 12/09/23 .COMPLEX #100 tabs gemfibrozil 600 mg tablet See Rx Instructions .Route 12/09/23 .COMPLEX #200 tabs meloxicam 15 mg tablet See Rx Instructions .Route 12/20/23 .COMPLEX #100 tabs carvedilol 3.125 mg tablet 3.125 mg PO BID #180 tabs 02/02/24 rivaroxaban 20 mg tablet 20 mg PO DAILY #90 tabs 02/03/24 Allergies Allergy/AdvReac Type Severity Reaction Status Date / Time Penicillins Allergy ALGY-Difficulty Verified 03/12/24 23:04 Breathing Review of Systems 2 General: Reports: 10 or more systems reviewed and unremarkable except in HPI and below PFSH ED 2 PFSH: Medical History Cardiac murmur, previously undiagnosed Bilateral impacted cerumen Pre-diabetes Obstructive sleep apnea syndrome, severe Severe obstructive sleep apnea with hypoxia on 01/03/2023 study Basal cell carcinoma of right ear Chronic shortness of breath CKD (chronic kidney disease) stage 3, GFR 30-59 ml/min Cardiac arrest with ventricular fibrillation Chronic episodic atrial fibrillation Hx of adenomatous colonic polyps Last Colonoscopy 09/12/2020 with adenomatous polyp removed at 50 cm F/U 5 yrs Osteoarthritis Left bundle branch block History of alcohol abuse PVD (peripheral vascular disease) Morbid obesity with BMI of 50.0-59.9, adult CHF (congestive heart failure) CAD (coronary artery disease) Hx of myocardial infarction HTN (hypertension) Anemia in chronic kidney disease Hyperlipidemia Surgical History Hx of external ear surgery History of open reduction and internal fixation (ORIF) procedure Hx of foot surgery History of surgery on wrist Family History Mother No problems noted. Father No problems noted. Grandmother Diabetes Denies family history of CAD (coronary artery disease) Clotting disorder Dementia Chronic kidney disease (CKD) Suicide Anesthesia complication Bleeding disorder Lung disease Cancer Stroke Social History Smoking and tobacco/nicotine status: never used tobacco/nicotine Alcohol intake: never Substance/Drug Use: never Marital status: Single Number of children: 1 Current occupational status: disabled Physical Exam 2 Const: COMMON NORMALS: no acute distress, average body habitus, patient oriented x3, no limitations, healthy appearing, alert and well nourished O THER: Morbidly obese HENMT: COMMON NORMALS: normocephalic, atraumatic, hearing grossly normal bilaterally, external ears normal, Normal external nose present and moist oral mucous membranes HEAD & SCALP: normocephalic and atraumatic NOSE: Normal external nose present EXTERNAL EAR: Yes external ears normal Neck/C-Spine: COMMON NORMALS: no JVD Chest: COMMONS NORMALS: normal inspection of the chest and normal palpation of entire chest wall Resp: COMMON NORMALS: normal respiratory effort, No retractions, No use of accessory muscles and clear to auscultation bilaterally AUSCULTATION: clear to auscultation bilaterally Cardio: COMMON NORMALS: no JVD, S1 normal heart sound present, S2 normal heart sound present, No gallops present (Cardio) and No clicks present (Cardio); negative for regular rate and negative for regular rhythm (Irregularly irregular mildly tachycardic) RATE: abnormal rate RHYTHM: abnormal rhythm (Irregularly irregular mildly tachycardic) HEART SOUNDS: S1 normal heart sound present and S2 normal heart sound present GI: COMMON NORMALS: Normal to inspection, nondistended, normoactive bowel sounds present, Soft to palpation, non-tender, No hepatosplenomegaly present and no masses PALPATION: Yes Soft to palpation and Yes No hepatosplenomegaly present Neuro: COMMON NORMALS: patient oriented x3 SENSORIUM/ORIENTATION: Yes alert Course 2 Vital Signs: Vital signs: Vital Signs Temperature 98.0 F 03/12/24 22:57 Pulse Rate 93 03/13/24 01:45 Respiratory Rate 16 03/13/24 01:45 Blood Pressure 129/66 03/13/24 02:00 Pulse Oximetry 95 03/13/24 02:00 Oxygen Delivery Me thod Nasal Cannula 03/13/24 00:20 Oxygen Flow Rate 2 03/13/24 00:20 MDM - Chest Pain Medical Decision Making Patient present with A-fib with RVR at rate about 120 beats a minute, patient was given 10 mg Cardizem IV push which did not do much and the patient was given 5 mg metoprolol IV push which brought his heart rate down to the 90s. Also improved the patient's blood pressure from 155/102 and 129/66. Lab work was obtained as well as serial EKGs, troponin initially was 47 and 2-hour troponin was approximately 65 her baseline of about 18. These results was discussed with Dr. Harrison who agreed to place patient in Obs. Differential Diagnosis Unlikely acute massive pulmonary embolism, acute respiratory failure, acute myocardial infarction, cardiac arrest or sudden cardiac Medical Records I reviewed the patient's medical records. Lab Data I reviewed the patient's lab results. 03/12/24 23:23 03/12/24 23:23 Radiology Impressions Chest X-Ray 03/12/24 22:58 IMPRESSION: 1. Cardiomegaly, pulmonary vascular congestion interstitial edema. 2. Patchy bilateral largely lower lobe ground-glass airspace opacities reflecting alveolar edema and/or pneumonic infiltrates. 3. Hiatal hernia suspected. Laboratory Results WBC 10.19 10^3/uL (3.29-11.43) 03/12/24 23:23 RBC 3.91 10^6/uL (3.85-5.65) 03/12/24 23:23 Hgb 11.10 g/dL (11.27-16.99) L 03/12/24 23:23 Hct 35.2 % (37-53) L 03/12/24 23:23 MCV 90.0 fl (82-101) 03/12/24 23:23 MCH 28.4 pg (27-33) 03/12/24 23:23 MCHC 31.5 g/dL (30-55) 03/12/24 23:23 RDW 13.8 % (12.1-15.1) 03/12/24 23:23 Plt Count 257 10^3/cmm (157-399) 03/12/24 23:23 MPV 9.0 fL (7.4-10.4) 03/12/24 23:23 Neut % (Auto) 83.2 % 03/12/24 23:23 Lymph % (Auto) 10.1 % 03/12/24 23:23 Stanley % (Auto) 5.0 % 03/12/24 23:23 Eos % (Auto) 0.9 % 03/12/24 23:23 Baso % (Auto) 0.4 % 03/12/24 23:23 Neut # (Auto) 8.48 10^3/uL (1.8-7.7) H 03/12/24 23:23 Lymph # (Auto) 1.0 10^3/uL (0.8-4.8) 03/12/24 23:23 Stanley # (Auto) 0.5 10^3/uL (0.2-0.9) 03/12/24 23:23 Eos # (Auto) 0.1 10^3/uL (0.0-0.8) 03/12/24 23:23 Baso # (Auto) 0.0 10^3/uL (0.0-0.1) 03/12/24 23:23 Nucleated RBC % (auto) 0 % 03/12/24 23:23 Nucleated RBCs # 0.0 /100WBC 03/12/24 23:23 PT 22.80 SECONDS (12.1-14.9) H 03/12/24 23:23 INR 1.93 (0.8-1.2) H 03/12/24 23:23 Sodium 142 mmol/L (136-145) 03/12/24 23:23 Potassium 3.7 mmol/L (3.5-5.1) 03/12/24 23:23 Chloride 104 mmol/L (98-107) 03/12/24 23:23 Carbon Dioxide 24 mmol/L (22-29) 03/12/24 23:23 Anion Gap 17.7 (5-19) 03/12/24 23:23 BUN 34 mg/dL (8-23) H 03/12/24 23:23 Creatinine 1.7 mg/dL (0.7-1.2) H 03/12/24 23:23 GFR Calculation 40.4 mL/min (90-130) L 03/12/24 23:23 Glucose 162 mg/dL (65-115) H 03/12/24 23:23 Calculated Osmolality 305 mOsm/kg (285-295) H 03/12/24 23:23 Calcium 9.0 mg/dL (8.5-10.5) 03/12/24 23:23 Magnesium 2.3 mg/dL (1.7-2.3) 03/12/24 23:23 Total Bilirubin 0.4 mg/dL (0.15-1.2) 03/12/24 23:23 AST 17 U/L (0-40) 03/12/24 23:23 ALT 8 U/L (0-41) 03/12/24 23:23 Alkaline Phosphatase 70 U/L (40-130) 03/12/24 23:23 Troponin T Baseline 47 ng/L (0-15) H 03/12/24 23:23 Troponin T 120 Minute 64.95 ng/L (0-15) H 03/13/24 01:25 Delta Troponin T 17.95 ABS# (0-10) H* 03/13/24 01:25 NT-Pro-B Natriuret Pep 2041 pg/mL (0-125) H 03/12/24 23:23 Total Protein 7.0 g/dL (6.6-8.7) 03/12/24 23:23 Albumin 4.4 g/dL (3.5-5.2) 03/12/24 23:23 Globulin 2.6 g/dL (1.3-4.6) 03/12/24 23:23 All radiology interpretation(s) finalized by discharge Discharge Plan Discharge Patient Disposition: Placed in Observation Clinical Impression: Chest pain, Elevated troponin, Atrial fibrillation with rapid ventricular response, Morbid obesity, Hypoxia Coding Level of Care Code ED Entertainment Reporter for Helga Fonseca
[2024-03-12] MEDS: dilTIAZem 5 mg/mL SDV 5 mL 10 MG IVP (23:31)
[2024-03-12 23:32] LABS: Basophils % 0.4 %; Eosinophils # 0.1 10^3/uL (0.0-0.8); Eosinophils % 0.9 %; Hematocrit 35.2 % (37-53); Lymphocytes % 10.1 %; Mean Corpuscular HGB Conc 31.5 g/dL (30-55); Mean Corpuscular Hemoglobin 28.4 pg (27-33); Monocytes # 0.5 10^3/uL (0.2-0.9); Neutrophils # 8.48 10^3/uL (1.8-7.7); Neutrophils % 83.2 %; Nucleated Red Blood Cells % 0 %; Platelet Count 257 10^3/cmm (157-399); Red Blood Count 3.91 10^6/uL (3.85-5.65); Red Cell Distribution Width 13.8 % (12.1-15.1); White Blood Count 10.19 10^3/uL (3.29-11.43)
[2024-03-12 23:45] LABS: INR 1.93 (0.8-1.2)
[2024-03-12 23:51] LABS: Alanine Aminotransferase 8 U/L (0-41); Albumin Level 4.4 g/dL (3.5-5.2); Alkaline Phosphatase 70 U/L (40-130); Anion Gap 17.7 (5-19); Aspartate Amino Transferase 17 U/L (0-40); Blood Urea Nitrogen 34 mg/dL (8-23); Carbon Dioxide 24 mmol/L (22-29); Chloride 104 mmol/L (98-107); Creatinine Clr Calc Pharmacy 70.2296; Globulin 2.6 g/dL (1.3-4.6); Glomerular Filtration Rate 40.4 mL/min (90-130); Glucose 162 mg/dL (65-115); Magnesium 2.3 mg/dL (1.7-2.3); Osmolality Calculated 305 mOsm/kg (285-295); Potassium 3.7 mmol/L (3.5-5.1); Sodium 142 mmol/L (136-145); Total Bilirubin 0.4 mg/dL (0.15-1.2)
[2024-03-12 23:53] LABS: Troponin(5th) Baseline 47 ng/L (0-15)
[2024-03-13] VITALS (28 sets, daily range): BP systolic 129–158; BP diastolic 66–122; PULSE 84–109; RESP 10–20; TEMP 36.8–37; O2SAT 84–95; BMI 50.2
[2024-03-13 00:03] LABS: NT Pro B Type Natriuretic Pept 2041 pg/mL (0-125)
[2024-03-13] MEDS: metoprolol tartrate 1 mg/1 mL SDV 5 mL 5 MG IVP (00:03)
--- NOTE | 2024-03-13 00:43 | ECG_ITS ---
[facility] Test Date: 2024-03-13 Pat Name: Krsitopher Jesus Department: Room: Gender: Male Rn Care Transition: : 1958-02-28 Requested By: Albaro Garvey Order Number: [id number] Hamzah MD: Tera Cristobal M.D. Measurements Intervals [place] Rate: 87 P: 0 [place]: 0 QRS: 83 QRSD: 159 T: 84 QT: 440 QTc: 530 Interpretive Statements ATRIAL FIBRILLATION INDETERMINATE AXIS INTRAVENTRICULAR CONDUCTION DELAY [130+ ms QRS DURATION] Compared to ECG 03/12/2024 22:58:33 Indeterminate axis now present Intraventricular conduction delay now present Ventricular premature complex(es) no longer present Aberrant conduction of supraventricular beat(s) no longer present Left bundle-branch block no longer present Electronically Signed On 03-13-2024 16:30:21 CDT by Tera Cristobal M.D. [id number]
[2024-03-13 02:03] LABS: Troponin 5 2HR 64.95 ng/L (0-15)
[2024-03-13 02:07] LABS: Troponin 5 2HR Delta 17.95 ABS# (0-10)
--- NOTE | 2024-03-13 04:57 | ECG_ITS ---
[facility] Test Date: 2024-03-13 Pat Name: Kristopher Jesus Department: Room: 277 Gender: Male Respiratory Manager: : 1958-02-28 Requested By: Albaro Garvey Order Number: [id number] Hamzah MD: Tera Cristobal M.D. Measurements Intervals [place] Rate: 92 P: 0 ID: 0 QRS: -20 QRSD: 185 T: 92 QT: 446 QTc: 552 Interpretive Statements ATRIAL FIBRILLATION LEFT BUNDLE BRANCH BLOCK [120+ ms QRS DURATION, 80+ ms Q/S IN V1/V2, 85+ ms R IN I/aVL/V5/V6] Compared to ECG 03/13/2024 00:43:02 Left bundle-branch block now present Indeterminate axis no longer present Intraventricular conduction delay no longer present Electronically Signed On 03-13-2024 16:31:00 CDT by Tera Cristobal M.D. [id number]
--- NOTE | 2024-03-13 05:09 | P.HP_ITS ---
Providers/Chief Complaint 2 Admitting Physician: Elsa Harrison MD Primary Care Provider: Ty Love MD Chief Complaint: chest pain History of Present Illness Kristopher Jesus is a 66 year old male with a past medical history of atrial fibrillation, diastolic CHF, reduced LVEF at 47%, severe obstructive sleep apnea and nocturnal hypoxemia who presented to the emergency room today with chief complaints of chest discomfort. Patient states he had retired to bed at around midnight when he suddenly woke up with complaints of palpitations and chest discomfort. He felt he was tachypneic and noted himself to be hypoxic in the 80s at the time. Called EMS and came into the emergency room. His heart rate at initial arrival was in the 120s for which he initially received diltiazem 10 mg IV push without any significant change. Thereafter he received metoprolol 5 mg IV push Following which his heart rate is now 80s to 90s in A-fib. Review of records shows that patient recently had a Holter monitor placed which showed a baseline rhythm of A-fib with episodes of bradycardia down in the 40s which were thought to be related to severe sleep apnea. He has recently been ordered for a CPAP. For the bradycardia his dose of carvedilol was reduced to 3.125 mg twice a day and amiodarone was continued at 200 mg daily. He has also noted to have worsened bilateral lower extremity edema. Patient states he has chronic lower extremity lymphedema for several years now his swelling fluctuates quite often. He has been taking an increased dose of Lasix though unable to quantify at this time to help reduce the swelling. Today he estimates that the swelling is worse than usual. EKG today shows left bundle branch block which is also seen on prior EKGs. Baseline troponin at 47, trending up to 64 at 2 hours with a delta of 17. 6- hour trend is currently pending. Patient reports that he is chest pain-free since his heart rate has been under good control. He thinks stress may have precipitated the events of today. Review of Systems 2 General: Reports: 10 or more systems reviewed and unremarkable except in HPI and below Const: Denies: fever(s), chills or body aches Eyes: Denies: change in vision, blurry vision or photophobia ENMT: Reports: hoarseness; Denies: throat pain, enlarged tonsils, odynophagia or nasal congestion Card: Denies: chest pain, palpitations, irregular heart rhythm, edema, swelling of feet/ankles, lightheadedness, pre-syncope, dyspnea on exertion or orthopnea Resp: Denies: dyspnea, productive cough, non-productive cough, wheezing, stridor, pain on inspiration, change in phlegm color, hemoptysis or chest congestion GI: Denies: abdominal pain, nausea, vomiting, hematemesis, coffee ground emesis, dysphagia, heartburn, diarrhea, constipation, GI cramping, change in stool character, hematochezia or melena : Denies: flank pain, dysuria, urinary frequency, urinary urgency, urinary hesitancy or hematuria Musc: Denies: neck pain, back pain, extremity pain, joint swelling, joint warmth or deformity Neuro: Denies: headache(s), numbness in extremities, weakness in extremities, sensory changes, difficulty walking, frequent falls, dizziness, vertigo, behavioral changes, Slurred speech present or seizure-like activity Psych: Denies: anxiety, depression, suicidal ideation or homicidal ideation Endo: Denies: polyuria, polydipsia, tired all the time, cold intolerance or hot flashes Ulices/Lymph: Denies: easy bruising or easy bleeding Medications/Allergies Home Medications Medication Instructions Recorded Confirmed Last Taken Type cholecalciferol (vitamin D3) 125 125 mcg PO DAILY 12/14/20 02/02/24 12/14/20 History mcg (5,000 unit) tablet (Vitamin D3) cyanocobalamin (vitamin B-12) 1,000 mcg PO DAILY 12/14/20 02/02/24 12/14/20 History 1,000 mcg tablet (Vitamin B-12) magnesium oxide 400 mg PO DAILY 01/27/21 02/02/24 09/29/22 History omega-3 fatty acids 1,000 mg 1,000 mg PO DAILY 01/27/21 02/02/24 09/29/22 History capsule (Fish Oil Concentrate) [id number] 300 mcg-K 60 1 tab PO DAILY 10/27/21 02/02/24 09/29/22 History mcg-lycop 600 mcg-lutein 300 mcg tablet (Centrum Silver Men) aspirin 325 mg tablet,delayed 325 mg PO DAILY circulation #100 10/08/22 02/02/24 Unknown Rx release (Sumaya Aspirin) tabs auto CPAP 6-16 setting #1 ea 03/22/23 02/02/24 Unknown Rx hydralazine 100 mg tablet 100 mg PO TID blood pressure #300 06/09/23 02/02/24 Unknown Rx tabs hydralazine 50 mg tablet 50 mg PO TID blood pressure #300 06/09/23 02/02/24 Unknown Rx tabs pantoprazole 40 mg tablet,delayed 40 mg PO 1XD #100 tabs 06/09/23 02/02/24 Unknown Rx release amiodarone 200 mg tablet (Pacerone) 200 mg PO DAILY #180 tabs 09/20/23 02/02/24 Unknown Rx amlodipine 10 mg tablet (Norvasc) 10 mg PO DAILY #90 tabs 09/28/23 02/02/24 Unknown Rx folic acid 1 mg tablet 1 mg PO DAILY #100 tabs 11/25/23 02/02/24 Unknown Rx furosemide 20 mg tablet See Rx Instructions .Route 12/09/23 02/02/24 Unknown Rx .COMPLEX #100 tabs gemfibrozil 600 mg tablet See Rx Instructions .Route 12/09/23 02/02/24 Unknown Rx .COMPLEX #200 tabs meloxicam 15 mg tablet See Rx Instructions .Route 12/20/23 02/02/24 Unknown Rx .COMPLEX #100 tabs carvedilol 3.125 mg tablet 3.125 mg PO BID #180 tabs 02/02/24 02/02/24 Unknown Rx rivaroxaban 20 mg tablet 20 mg PO DAILY #90 tabs 02/03/24 02/03/24 Unknown Rx Allergies Allergy/AdvReac Type Severity Reaction Status Date / Time Penicillins Allergy ALGY-Difficulty Verified 03/12/24 23:04 Breathing PFSH Acute 2 PFSH: Medical History Cardiac murmur, previously undiagnosed Bilateral impacted cerumen Pre-diabetes Obstructive sleep apnea syndrome, severe Severe obstructive sleep apnea with hypoxia on 01/03/2023 study Basal cell carcinoma of right ear Chronic shortness of breath CKD (chronic kidney disease) stage 3, GFR 30-59 ml/min Cardiac arrest with ventricular fibrillation Chronic episodic atrial fibrillation Hx of adenomatous colonic polyps Last Colonoscopy 09/12/2020 with adenomatous polyp removed at 50 cm F/U 5 yrs Osteoarthritis Left bundle branch block History of alcohol abuse PVD (peripheral vascular disease) Morbid obesity with BMI of 50.0-59.9, adult CHF (congestive heart failure) CAD (coronary artery disease) Hx of myocardial infarction HTN (hypertension) Anemia in chronic kidney disease Hyperlipidemia Surgical History Hx of external ear surgery History of open reduction and internal fixation (ORIF) procedure Hx of foot surgery History of surgery on wrist Family History Mother No problems noted. Father No problems noted. Grandmother Diabetes Denies family history of CAD (coronary artery disease) Clotting disorder Dementia Chronic kidney disease (CKD) Suicide Anesthesia complication Bleeding disorder Lung disease Cancer Stroke Social History Smoking and tobacco/nicotine status: never used tobacco/nicotine Alcohol intake: never Substance/Drug Use: never Marital status: Single Number of children: 1 Current occupational status: disabled Vitals/I&O/Wt Last Vital Signs Temp 98.0 F 03/12/24 22:57 Pulse 96 03/13/24 02:28 Resp 18 03/13/24 02:28 BP 129/66 03/13/24 02:28 Pulse Ox 93 03/13/24 02:28 O2 Del Method Nasal Cannula 03/13/24 00:20 O2 Flow Rate 2 03/13/24 00:20 03/12/24 03/12/24 03/13/24 14:59 22:59 06:59 Intake Total 250 / 250 Balance 250 / 250 Weight last 48 hrs Weight 163.475 kg Weight 181.437 kg Physical Exam 2 Narrative: General: No acute distress, AO x3 HEENT: PERRLA, pupils bilaterally equal and reactive, pallors not present Chest: Normal vesicular breath sounds, no added sounds, equal good air entry bilaterally CVS: S1-S2 regular, no murmurs, no tachycardia, no gallops, no rubs Abdomen: Soft, nontender, no organomegaly, bowel sounds present Neuro: No focal deficits, no facial deformity, AO x3, power 5/5 in all limbs Extremities: Lower extremity pitting edema ++, bilateral lymphedema, changes of stasis dermatitis over the left lower extremity Data 03/12/24 23:23 03/12/24 23:23 Other Labs: Baseline troponin 47 2-hour troponin 64.95 6-hour troponin currently pending proBNP 2040 CXR: My impression: Bilaterally increased interstitial markings, given clinical setting appears to be most suggestive of pulmonary edema Radiologist's impression: XR/XR chest 1V portable [id number] IMPRESSION: 1. Cardiomegaly, pulmonary vascular congestion interstitial edema. 2. Patchy bilateral largely lower lobe ground-glass airspace opacities reflecting alveolar edema and/or pneumonic infiltrates. 3. Hiatal hernia suspected. Echo: Radiologist's impression: CONCLUSIONS Diffuse hypokinesia of the left ventricle with ejection fraction of 47%. Mildly dilated LV cavity.Grade III/IV diastolic dysfunction (restrictive filling pattern), severely elevated filling pressures. Possibly normal RV size and ejection fraction. Severely dilated, left atrial end-systolic volume index of 64 mL/m squared. Moderately dilated right atrium Mild mitral annular calcification. Mild mitral valve regurgitation. [id number] tricuspid valve regurgitation. There is no pericardial effusion. There are no intracardiac masses. Compared to the study from 07/14/2021, there is significant drop in the LV ejection fraction Dr Carly Mancia MD [facility] (Electronically Signed) Final Date: 09 December 2023 A&P Assessment and plan (1) CHF (congestive heart failure): Qualifiers: Heart failure chronicity: chronic Heart failure type: unspecified Qualified Code(s): I50.9 - Heart failure, unspecified (2) Elevated troponin: (3) Atrial fibrillation with rapid ventricular response: (4) Chest pain: Qualifiers: Chest pain type: unspecified Qualified Code(s): R07.9 - Chest pain, unspecified Plan 66-year-old male with a past medical history of atrial fibrillation, CKD, systolic and diastolic heart failure, presenting to the emergency room today with chief complaints of chest discomfort, palpitations and found to have A-fib with RVR which was rate controlled with administration of IV Cardizem and then IV metoprolol. EKG shows baseline LBBB with A-fib/RVR when tachycardic Baseline troponin at 42, trending up at 2 hours with a delta of 17, pending 6- hour trend at this time. Patient also showing signs of CHF with worsening lower extremity edema, chest x- ray with pulmonary vascular congestion, hypoxia upon arrival. Lasix 40 mg IV to be given now. Closely monitor urine output and renal function Resume home dose of amiodarone 200 mg p.o. daily and carvedilol 3.125 mg twice daily. Of note his dose of carvedilol was recently reduced due to bradycardia in the 40s. Patient states he has been under stress which he thinks has precipitated his A- fib today. Recent echocardiogram taken a month ago as outpatient showed ejection fraction of 47% with diffuse hypokinesia which is a new finding compared to 2021. In review of cardiology's notes it appears patient was ordered for a stress test as an outpatient but this is yet to be completed. Discussed with the patient that we will await the 6-hour troponin trend. Mild elevation in troponin tonight might be related to arrhythmia/RVR versus CHF exacerbation, however given his recently abnormal echocardiogram and high risk features on history, will await 6-hour troponin trend as NSTEMI remains on the differential. Aspirin 325 mg orally to be given now. Continue home dose of gemfibrozil. Discussed with him that should his troponin continue to trend up and with a recently abnormal echocardiogram, would warrant further cardiology evaluation. Hold Xarelto for now in case any cardiac intervention is needed based on the 6- hour troponin trend. DVT prophylaxis: Anticipate resuming Xarelto as soon as feasible PUD prophylaxis: Protonix 40 mg p.o. daily Further orders to remain dependent on the troponin 6-hour trend. Attestations 2 Medical Necessity Statement*: Less than 2 midnight stay is anticipated at this time Coding Level of Care Code Acute Code for Chg Fwd High MDM includes number and complexity of problems actively addressed during encounter, amount and/or complexity of data reviewed/ordered and described risk of complication, morbidity or mortality of management as documented Diagnoses Chronic congestive heart failure, unspecified heart failure type I50.9 Heart failure chronicity: chronic Heart failure type: unspecified Elevated troponin R79.89 Atrial fibrillation with rapid ventricular response I48.91 Chest pain R07.9 Chest pain type: unspecified
[2024-03-13 05:53] LABS: Troponin 5 6HR 67.68 ng/L (0-15)
[2024-03-13 05:55] LABS: Troponin 5 6HR Delta 20.68 ng/L (0-12)
[2024-03-13] MEDS: FUROsemide 10 mg/mL SDV 4mL 40 MG IVP (06:32)
[2024-03-13] MEDS: amiodarone 200 mg Tablet PO (06:32)
[2024-03-13] MEDS: carvedilol 3.125 mg Tablet PO ×2 (06:32→08:46)
[2024-03-13] MEDS: aspirin 325 mg Tablet PO (06:32)
[2024-03-13] MEDS: pantoprazole DR 40 mg Tablet PO ×2 (06:33→08:52)
[2024-03-13] MEDS: magnesium oxide 400 mg tablet PO (08:44)
[2024-03-13] MEDS: amlodipine 10 mg Tablet PO (08:46)
[2024-03-13] MEDS: gemfibrozil 600 mg Tablet PO (08:48)
[2024-03-13] MEDS: hyDRALAzine 50 mg Tablet PO ×2 (08:48→14:07)
--- NOTE | 2024-03-13 09:29 | PM.CONSULT ---
Providers/Reason For Consult Consulting Physician/Specialty*: JAMILAH Mancia MD/cardiology Reason for Consult*: Patient with atrial fibrillation rapid ventricular rate, elevated troponin T Requesting Physician: Dr Benjamín Harrison Attending Physician: Elsa Harrison MD Primary Care Provider: Ty Love MD History of Present Illness History of Present Illness Kristopher Jesus is a 66 year old male is admitted to hospital through the emergency room where he presented with complaints of palpitation/rapid heart rate/chest discomfort. Patient was found to be in atrial fibrillation with rapid ventricular rate. He also was found to have a elevated troponin T with a significant delta at 2 hours and 6 hours. Cardiology consult is requested for further cardiac evaluation recommendations. This patient is known to have intermittent atrial fibrillation, bradycardia, LV dysfunction, heart failure, severe obstructive sleep apnea, chronic venous stasis ulcers of the lower extremity and multiple other medical problems. He apparently has been in his baseline state of health up until last evening when while he was trying to sleep, apparently could not sleep. He was turning and tossing in the bed. All of a sudden, he felt the heart is beating too fast and had some associated discomfort. Also was slightly short of breath. He did not have any dizziness or syncopal episodes. No fever, chills or cough. No other specific complaints. Because of the persistence of the symptoms, he was brought to the hospital. In the emergency room, he was found to be in atrial fibrillation rapid ventricular rate. He was given a IV Cardizem 10 mg and also metoprolol 5 mg. His heart rate started coming down. Because of the elevated troponin with a significant delta, he was admitted to the hospital for further evaluation management. This patient has a history of chronic intermittent atrial fibrillation. He has been on amiodarone. A recent Holter monitor revealed the patient staying in the atrial fibrillation with the relatively slow heartbeat of 55 bpm. He had a total of 5 pauses of more than 3 seconds. At that point, it was decided to cut back on the dose of his carvedilol from 6.25-3.125. He had not been on anticoagulation for a while. He was started on Xarelto. According the patient, he has been compliant with medications. He had a recent echocardiogram which revealed diffuse hypokinesia of the LV left ventricule with and ejection fraction of around 45%. He was scheduled for a Myocardial perfusion imaging. Apparently the patient refused to go for the stress test. He has a history of his severe obstructive sleep apnea. He was recommended for self titrating CPAP machine. Apparently the patient has not started using this. Had cardiac colorization in 2013 when he presented with ventricular tachycardia in [place]. He was cardioverted. Cardiac catheterization revealed only mild coronary artery disease. It was opted to treat him medically at that time. Denies any fever, chills or any significant cough. No other specific complaints. Review of Systems Narrative: CONSTITUTIONAL: No fever or chills. EYES: No blurring of vision or other visual disturbances lately. ENT: No hoarseness of voice, auditory disturbances or sore throat. CARDIOVASCULAR: As mentioned above. RESPIRATORY: Severe obstructive sleep apnea as mentioned above GASTROINTESTINAL: History of GERD INTEGUMENTARY: No skin rashes or history of skin cancer. NEURO: No transient ischemic attacks or amaurosis. PSYCHIATRIC: No history of psychosis or major depression. HEMATOLOGIC: History of mild chronic anemia ENDOCRINE: No history of polyuria or polydipsia. MUSCULOSKELETAL: No recent joint pain or swelling. ALLERGY/IMMUNOLOGY: As mentioned above. Medications/Allergies Home Medications Medication Instructions Recorded Confirmed Last Taken Type cholecalciferol (vitamin D3) 125 125 mcg PO DAILY 12/14/20 03/13/24 03/11/24 History mcg (5,000 unit) tablet (Vitamin D3) auto CPAP 6-16 setting #1 ea 03/22/23 03/13/24 Unknown Rx hydralazine 100 mg tablet 100 mg PO TID blood pressure #300 06/09/23 03/13/24 03/11/24 Rx tabs hydralazine 50 mg tablet 50 mg PO TID blood pressure #300 06/09/23 03/13/24 03/11/24 Rx tabs pantoprazole 40 mg tablet,delayed 40 mg PO 1XD #100 tabs 06/09/23 03/13/24 03/12/24 Rx release amiodarone 200 mg tablet (Pacerone) 200 mg PO DAILY #180 tabs 09/20/23 03/13/24 03/10/24 Rx amlodipine 10 mg tablet (Norvasc) 10 mg PO DAILY #90 tabs 09/28/23 03/13/24 03/10/24 Rx gemfibrozil 600 mg tablet See Rx Instructions .Route 12/09/23 03/13/24 03/11/24 Rx .COMPLEX #200 tabs rivaroxaban 20 mg tablet 20 mg PO DAILY #90 tabs 02/03/24 03/13/24 03/11/24 Rx furosemide 20 mg tablet 20 mg PO DAILY 03/13/24 03/13/24 03/12/24 History meloxicam 15 mg tablet 15 mg PO DAILY 03/13/24 03/13/24 03/11/24 History Allergies Allergy/AdvReac Type Severity Reaction Status Date / Time Penicillins Allergy ALGY-Difficulty Verified 03/12/24 23:04 Breathing Current Medications Generic Name Dose Route Start Last Admin Trade Name Cubaq PRN Reason Stop Dose Admin Amiodarone HCl 200 mg 03/13/24 05:50 03/13/24 06:32 Amiodarone 200 Mg Tablet PO 200 mg DAILY BISI Administration Amlodipine Besylate 10 mg 03/13/24 09:00 03/13/24 08:46 Amlodipine 10 Mg Tablet PO 10 mg DAILY BISI Administration Carvedilol 3.125 mg 03/13/24 05:50 03/13/24 08:46 Carvedilol 3.125 Mg Tablet PO 3.125 mg BID BISI Administration Gemfibrozil 600 mg 03/13/24 09:00 03/13/24 08:48 Gemfibrozil 600 Mg Tablet PO 600 mg BID BISI Administration Hydralazine HCl 50 mg 03/13/24 09:00 03/13/24 08:48 Hydralazine 50 Mg Tablet PO 50 mg TID BISI Administration Magnesium Oxide 400 mg 03/13/24 09:00 03/13/24 08:44 Magnesium Oxide 400 Mg Tablet PO 400 mg DAILY BISI Administration Pantoprazole Sodium 40 mg 03/13/24 05:45 03/13/24 08:[address] 40 Mg Tablet PO 40 mg DAILY BISI Administration PFSH Acute PFSH: Medical History (Updated 03/13/24 @ 13:24 by Carly Mancia MD) Cardiac murmur, previously undiagnosed Bilateral impacted cerumen Pre-diabetes Obstructive sleep apnea syndrome, severe Severe obstructive sleep apnea with hypoxia on 01/03/2023 study Basal cell carcinoma of right ear Chronic shortness of breath CKD (chronic kidney disease) stage 3, GFR 30-59 ml/min Cardiac arrest with ventricular fibrillation Chronic episodic atrial fibrillation Hx of adenomatous colonic polyps Last Colonoscopy 09/12/2020 with adenomatous polyp removed at 50 cm F/U 5 yrs Osteoarthritis Left bundle branch block History of alcohol abuse PVD (peripheral vascular disease) Morbid obesity with BMI of 50.0-59.9, adult CHF (congestive heart failure) CAD (coronary artery disease) Hx of myocardial infarction HTN (hypertension) Anemia in chronic kidney disease Hyperlipidemia Surgical History Hx of external ear surgery History of open reduction and internal fixation (ORIF) procedure Hx of foot surgery History of surgery on wrist Family History Mother No problems noted. Father No problems noted. Grandmother Diabetes Denies family history of CAD (coronary artery disease) Clotting disorder Dementia Chronic kidney disease (CKD) Suicide Anesthesia complication Bleeding disorder Lung disease Cancer Stroke Social History Smoking and tobacco/nicotine status: never used tobacco/nicotine Alcohol intake: never Substance/Drug Use: never Marital status: Single Number of children: 1 Current occupational status: disabled Vitals/I&O/Wt Last Vital Signs Temp 98.5 F 03/13/24 08:00 Pulse 87 03/13/24 08:00 Resp 18 03/13/24 08:00 BP 148/89 03/13/24 08:00 Pulse Ox 90 03/13/24 08:00 O2 Del Method Room Air 03/13/24 08:00 O2 Flow Rate 2 03/13/24 00:20 03/12/24 03/13/24 03/13/24 22:59 06:59 14:59 Intake Total 250 / 250 360 / 360 Output Total 1450 / 1450 Balance 250 / 250 -1090 / -1090 Weight last 48 hrs Weight 360 lb 11.2 oz Weight 360 lb 6.4 oz Weight 400 lb Physical Exam Narrative: GENERAL: The patient is alert and oriented times three. Not in any acute distress. Morbidly obese HEENT: No significant pallor, icterus or lymphadenopathy.Oral cavity: There are no mucous membrane lesions. NECK: Trachea appears to be central. No masses noted. No JVD or thyromegaly appreciated. RESPIRATORY: Chest is symmetrical. No intercostals muscle retraction or any accessory muscle activation. There is no chest wall tenderness. Breath sounds are heard bilaterally. No rales or rhonchi heard. No evidence of any consolidation. BREASTS: Deferred. HEART: The heart sounds are normal. No S3 or S4. Short systolic murmur at the left sternal border. No diastolic murmurs. No pericardial rub ABDOMEN: No vessel pulsations or distention. No tenderness. No organomegaly appreciated. Bowel sounds are normally heard. : Deferred. RECTAL: Deferred. LYMPHATIC: No lymphadenopathy noted in the neck. EXTREMITIES: No edema or cyanosis. No clubbing. MUSCULOSKELETAL: No acute joint deformities or swelling SKIN: There are no significant rashes or ecchymosis NEUROPSYCHIATRIC: The patient is alert and oriented x3. Appears to be in a good mood. No tremors or rigidity noted. Data 03/12/24 23:23 03/12/24 23:23 Other Labs: Laboratory Last Values WBC 10.19 10^3/uL (3.29-11.43) 03/12/24 23: RBC 3.91 10^6/uL (3.85-5.65) 03/12/24 23:23 Hgb 11.10 g/dL (11.27-16.99) L 03/12/24 23:23 Hct 35.2 % (37-53) L 03/12/24 23:23 MCV 90.0 fl (82-101) 03/12/24 23:23 MCH 28.4 pg (27-33) 03/12/24 23: MCHC 31.5 g/dL (30-55) 03/12/24 23: RDW 13.8 % (12.1-15.1) 03/12/24 23:23 Plt Count 257 10^3/cmm (157-399) 03/12/24 23:23 MPV 9.0 fL (7.4-10.4) 03/12/24 23: Neut % (Auto) 83.2 % 03/12/24 23: Lymph % (Auto) 10.1 % 03/12/24 23: Alfalfa % (Auto) 5.0 % 03/12/24 23: Eos % (Auto) 0.9 % 03/12/24 23: Baso % (Auto) 0.4 % 03/12/24 23:23 Neut # (Auto) 8.48 10^3/uL (1.8-7.7) H 03/12/24 23:23 Lymph # (Auto) 1.0 10^3/uL (0.8-4.8) 03/12/24 23:23 Alfalfa # (Auto) 0.5 10^3/uL (0.2-0.9) 03/12/24 23:23 Eos # (Auto) 0.1 10^3/uL (0.0-0.8) 03/12/24 23:23 Baso # (Auto) 0.0 10^3/uL (0.0-0.1) 03/12/24 23:23 Nucleated RBC % (auto) 0 % 03/12/24 23:23 Nucleated RBCs # 0.0 /100WBC 03/12/24 23:23 PT 22.80 SECONDS (12.1-14.9) H 03/12/24 23:23 INR 1.93 (0.8-1.2) H 03/12/24 23:23 Sodium 142 mmol/L (136-145) 03/12/24 23:23 Potassium 3.7 mmol/L (3.5-5.1) 03/12/24 23:23 Chloride 104 mmol/L (98-107) 03/12/24 23:23 Carbon Dioxide 24 mmol/L (22-29) 03/12/24 23:23 Anion Gap 17.7 (5-19) 03/12/24 23:23 BUN 34 mg/dL (8-23) H 03/12/24 23:23 Creatinine 1.7 mg/dL (0.7-1.2) H 03/12/24 23:23 GFR Calculation 40.4 mL/min (90-130) L 03/12/24 23:23 Glucose 162 mg/dL (65-115) H 03/12/24 23:23 Calculated Osmolality 305 mOsm/kg (285-295) H 03/12/24 23:23 Calcium 9.0 mg/dL (8.5-10.5) 03/12/24 23:23 Magnesium 2.3 mg/dL (1.7-2.3) 03/12/24 23:23 Total Bilirubin 0.4 mg/dL (0.15-1.2) 03/12/24 23:23 AST 17 U/L (0-40) 03/12/24 23:23 ALT 8 U/L (0-41) 03/12/24 23:23 Alkaline Phosphatase 70 U/L (40-130) 03/12/24 23:23 Troponin T Baseline 47 ng/L (0-15) H 03/12/24 23:23 Troponin T 120 Minute 64.95 ng/L (0-15) H 03/13/24 01:25 Delta Troponin T 17.95 ABS# (0-10) H* 03/13/24 01:25 Troponin T Hi Sens 6Hr 67.68 ng/L (0-15) H 03/13/24 05:23 Troponin T Hi Sens 6Hr Delta 20.68 ng/L (0-12) H* 03/13/24 05:23 NT-Pro-B Natriuret Pep 2041 pg/mL (0-125) H 03/12/24 23:23 Total Protein 7.0 g/dL (6.6-8.7) 03/12/24 23:23 Albumin 4.4 g/dL (3.5-5.2) 03/12/24 23:23 Globulin 2.6 g/dL (1.3-4.6) 03/12/24 23:23 Other data: Echocardiogram on 12/09/2023 Diffuse hypokinesia of the left ventricle with ejection fraction of 47%. Mildly dilated LV cavity.Grade III/IV diastolic dysfunction (restrictive filling pattern), severely elevated filling pressures. Possibly normal RV size and ejection fraction. Severely dilated, left atrial end-systolic volume index of 64 mL/m squared. Moderately dilated right atrium Mild mitral annular calcification. Mild mitral valve regurgitation. [id number] tricuspid valve regurgitation. There is no pericardial effusion. There are no intracardiac masses. Compared to the study from 07/14/2021, there is significant drop in the LV ejection fraction A&P Assessment and plan (1) Atrial fibrillation with rapid ventricular response: The patient's heart rate seems to be getting under control. Currently seems to be in chronic atrial fibrillation. For the control of the heart rate, I may increase the dose of the carvedilol to 6.25 mg in the morning and 3.125 mg in the evening. Continue the oral anticoagulation (2) Elevated troponin I level: Most likely related to the atrial fibrillation rapid ventricular rate. She may benefit from a Myocardial perfusion imaging to evaluate for any underlying coronary ischemia causing this. I recommend a stress test but the patient vehemently is opposed to it. (3) Left bundle branch block: May continue on the current management. (4) HTN (hypertension): Since the blood pressure is in the normal range, patient may not require any medication changes at this time. Advised to continue on the current measures. Qualifiers: Hypertension type: primary hypertension Qualified Code(s): I10 - Essential (primary) hypertension (5) Hyperlipidemia: Patient is known to have dyslipidemia. Advised to continue on the current medications. Will have the follow-up evaluation as scheduled. Patient understands the importance of dietary compliance Qualifiers: Hyperlipidemia type: mixed hyperlipidemia Qualified Code(s): E78.2 - Mixed hyperlipidemia Plan I discussed with the patient in detail the natural history of the arrhythmia and the further treatment options. Patient seems to be doing okay with a controlled ventricular response rate. At this point the focus is to optimize AV rajesh blocking agents. Because the history of bradycardia, patient carries a higher risk for developing symptomatic bradycardia. Sometime down the line the patient may require a permanent pacemaker to further manage his arrhythmia. Patient understood the conversation well. Because of the LV dysfunction and Consult Attestations Medical Necessity Statement: Disposition as per the primary Coding Level of Care Code Acute Code for [facility] Fwd Diagnoses Atrial fibrillation with rapid ventricular response I48.91 Elevated troponin I level R79.89 Left bundle branch block I44.7 Primary hypertension I10 Hypertension type: primary hypertension Mixed hyperlipidemia E78.2 Hyperlipidemia type: mixed hyperlipidemia
--- NOTE | 2024-03-13 12:07 | P.DS_ITS ---
Discharge Providers Date of Admission: 03/13/24 05:40 Date of Discharge: March 13, 2024 Attending Provider at Admission: Elsa Harrison MD Attending Provider at Discharge: Ata Lara MD Consults: Cardiology: Dr. Mancia Primary Care Provider: Ty Love MD Diagnoses at Discharge Discharge Diagnosis (1) CHF (congestive heart failure): Status: Acute Qualifiers: Heart failure chronicity: chronic Heart failure type: unspecified Qualified Code(s): I50.9 - Heart failure, unspecified (2) Elevated troponin: Status: Acute (3) Atrial fibrillation with rapid ventricular response: Status: Acute (4) Chest pain: Status: Acute Qualifiers: Chest pain type: unspecified Qualified Code(s): R07.9 - Chest pain, unspecified Reason for Visit Reason for Visit: chest pain Brief History: History as per HPI: Kristopher Jesus is a 66 year old male with a past medical history of atrial fibrillation, diastolic CHF, reduced LVEF at 47%, severe obstructive sleep apnea and nocturnal hypoxemia who presented to the emergency room today with chief complaints of chest discomfort. Patient states he had retired to bed at around midnight when he suddenly woke up with complaints of palpitations and chest discomfort. He felt he was tachypneic and noted himself to be hypoxic in the 80s at the time. Called EMS and came into the emergency room. His heart rate at initial arrival was in the 120s for which he initially received diltiazem 10 mg IV push without any significant change. Thereafter he received metoprolol 5 mg IV push Following which his heart rate is now 80s to 90s in A-fib. Review of records shows that patient recently had a Holter monitor placed which showed a baseline rhythm of A-fib with episodes of bradycardia down in the 40s which were thought to be related to severe sleep apnea. He has recently been ordered for a CPAP. For the bradycardia his dose of carvedilol was reduced to 3.125 mg twice a day and amiodarone was continued at 200 mg daily. He has also noted to have worsened bilateral lower extremity edema. Patient states he has chronic lower extremity lymphedema for several years now his swelling fluctuates quite often. He has been taking an increased dose of Lasix though unable to quantify at this time to help reduce the swelling. Today he estimates that the swelling is worse than usual. EKG today shows left bundle branch block which is also seen on prior EKGs. Baseline troponin at 47, trending up to 64 at 2 hours with a delta of 17. 6- hour trend is currently pending. Patient reports that he is chest pain-free since his heart rate has been under good control. He thinks stress may have precipitated the events of today. Hospital Course Hospital Course Patient was admitted to the hospital further evaluation and management. His heart rate remained stable after receiving extra push doses of Cardizem and metoprolol in the ER. With concerns for recently diagnosed new low EF and mildly elevated troponins on admission cardiology was consulted. Believed his mild troponin elevation admission in setting of CKD along with type II [place] from A-fib with RVR. Patient has as an outpatient and during hospitalization remained chest pain-free. Need of cardiac angiogram were discussed in detail with the patient but as he is on Xarelto which she needs to be held for at least 48 to 72 hours prior to cardiac angiogram while being on heparin with bridging patient decided to be discharged and possibly have the procedure done as an outpatient if he has chest pain. For his heart rate his dose of Coreg has been increased to 6.25 mg in morning and 3.125 mg in evening. Safe discharge plan were discussed in detail with the patient and he is agreeable. He is been discharged hemodynamically stable condition. He is counseled and encouraged in detail to use his CPAP. He has also been given an option of possibly made using nasal pillow instead of facemask. Physical Exam Narrative: General: No acute distress, AO x3 HEENT: PERRLA, pupils bilaterally equal and reactive, pallors not present Chest: Normal vesicular breath sounds, no added sounds, equal good air entry bilaterally CVS: S1-S2 regular, no murmurs, no tachycardia, no gallops, no rubs Abdomen: Soft, nontender, no organomegaly, bowel sounds present Neuro: No focal deficits, no facial deformity, AO x3, power 5/5 in all limbs Extremities: Lower extremity pitting edema ++, bilateral lymphedema, changes of stasis dermatitis over the left lower extremity Discharge Data Studies Completed and Pending Completed Studies During Hospitalization Category Date Time Status XR chest 1V portable [id number] Stat Exams 03/12/24 22:58 Completed Pending at discharge Category Date Time Status Complete Blood Count w/Auto AM LABS Lab 03/14/24 04:00 Ordered Comprehensive Metabolic Panel AM LABS Lab 03/14/24 04:00 Ordered Magnesium AM LABS Lab 03/14/24 04:00 Ordered Radiology Impressions Chest X-Ray 03/12/24 22:58 IMPRESSION: 1. Cardiomegaly, pulmonary vascular congestion interstitial edema. 2. Patchy bilateral largely lower lobe ground-glass airspace opacities reflecting alveolar edema and/or pneumonic infiltrates. 3. Hiatal hernia suspected. Laboratory Results WBC 10.19 10^3/uL (3.29-11.43) 03/12/24 23:23 RBC 3.91 10^6/uL (3.85-5.65) 03/12/24 23:23 Hgb 11.10 g/dL (11.27-16.99) L 03/12/24 23:23 Hct 35.2 % (37-53) L 03/12/24 23:23 MCV 90.0 fl (82-101) 03/12/24 23:23 MCH 28.4 pg (27-33) 03/12/24 23:23 MCHC 31.5 g/dL (30-55) 03/12/24 23:23 RDW 13.8 % (12.1-15.1) 03/12/24 23:23 Plt Count 257 10^3/cmm (157-399) 03/12/24 23:23 MPV 9.0 fL (7.4-10.4) 03/12/24 23:23 Neut % (Auto) 83.2 % 03/12/24 23:23 Lymph % (Auto) 10.1 % 03/12/24 23:23 [place] % (Auto) 5.0 % 03/12/24 23:23 Eos % (Auto) 0.9 % 03/12/24 23:23 Baso % (Auto) 0.4 % 03/12/24 23:23 Neut # (Auto) 8.48 10^3/uL (1.8-7.7) H 03/12/24 23:23 Lymph # (Auto) 1.0 10^3/uL (0.8-4.8) 03/12/24 23:23 [place] # (Auto) 0.5 10^3/uL (0.2-0.9) 03/12/24 23:23 Eos # (Auto) 0.1 10^3/uL (0.0-0.8) 03/12/24 23:23 Baso # (Auto) 0.0 10^3/uL (0.0-0.1) 03/12/24 23:23 Nucleated RBC % (auto) 0 % 03/12/24 23:23 Nucleated RBCs # 0.0 /100WBC 03/12/24 23:23 PT 22.80 SECONDS (12.1-14.9) H 03/12/24 23:23 INR 1.93 (0.8-1.2) H 03/12/24 23:23 Sodium 142 mmol/L (136-145) 03/12/24 23:23 Potassium 3.7 mmol/L (3.5-5.1) 03/12/24 23:23 Chloride 104 mmol/L (98-107) 03/12/24 23:23 Carbon Dioxide 24 mmol/L (22-29) 03/12/24 23:23 Anion Gap 17.7 (5-19) 03/12/24 23:23 BUN 34 mg/dL (8-23) H 03/12/24 23:23 Creatinine 1.7 mg/dL (0.7-1.2) H 03/12/24 23:23 GFR Calculation 40.4 mL/min (90-130) L 03/12/24 23:23 Glucose 162 mg/dL (65-115) H 03/12/24 23:23 Calculated Osmolality 305 mOsm/kg (285-295) H 03/12/24 23:23 Calcium 9.0 mg/dL (8.5-10.5) 03/12/24 23:23 Magnesium 2.3 mg/dL (1.7-2.3) 03/12/24 23:23 Total Bilirubin 0.4 mg/dL (0.15-1.2) 03/12/24 23:23 AST 17 U/L (0-40) 03/12/24 23:23 ALT 8 U/L (0-41) 03/12/24 23:23 Alkaline Phosphatase 70 U/L (40-130) 03/12/24 23:23 Troponin T Baseline 47 ng/L (0-15) H 03/12/24 23:23 Troponin T 120 Minute 64.95 ng/L (0-15) H 03/13/24 01:25 Delta Troponin T 17.95 ABS# (0-10) H* 03/13/24 01:25 Troponin T Hi Sens 6Hr 67.68 ng/L (0-15) H 03/13/24 05:23 Troponin T Hi Sens 6Hr Delta 20.68 ng/L (0-12) H* 03/13/24 05:23 NT-Pro-B Natriuret Pep 2041 pg/mL (0-125) H 03/12/24 23:23 Total Protein 7.0 g/dL (6.6-8.7) 03/12/24 23:23 Albumin 4.4 g/dL (3.5-5.2) 03/12/24 23:23 Globulin 2.6 g/dL (1.3-4.6) 03/12/24 23:23 Vitals Last Vital Signs Temp 98.2 F 03/13/24 11:39 Pulse 89 03/13/24 11:39 Resp 18 03/13/24 11:39 BP 149/70 03/13/24 11:39 Pulse Ox 90 03/13/24 11:39 O2 Del Method Room Air 03/13/24 11:39 O2 Flow Rate 2 03/13/24 00:20 Discharge Plan Discharge Patient Disposition: Home Condition: Stable Prescriptions: Continued rivaroxaban 20 mg tablet 20 mg PO DAILY Qty: 90 1RF Rx Instructions: must administer with evening meal (DME) auto CPAP 6-16 setting See Rx Instructions .Route .MEDSUPPLY Qty: 1 0RF Rx Instructions: As directed hydralazine 100 mg tablet 100 mg PO TID Qty: 300 3RF Rx Instructions: Take 100 & 50 mg tablets for a total of 150 mg 3 times a day. hydralazine 50 mg tablet 50 mg PO TID Qty: 300 3RF Rx Instructions: Take 100 & 50 mg tablets for a total of 150 mg 3 times a day. pantoprazole 40 mg tablet,delayed release (DR/EC) 40 mg PO 1XD Qty: 100 3RF Rx Instructions: TAKE 1 TABLET BY MOUTH DAILY amiodarone [Pacerone] 200 mg tablet 200 mg PO DAILY Qty: 180 2RF Norvasc 10 mg tablet 10 mg PO DAILY Qty: 90 0RF gemfibrozil 600 mg tablet See Rx Instructions .ROUTE .COMPLEX Qty: 200 2RF Dose Instruction: TAKE 1 TABLET BY MOUTH TWICE DAILY Rx Instructions: TAKE 1 TABLET BY MOUTH TWICE DAILY cholecalciferol (vitamin D3) [Vitamin D3] 125 mcg (5,000 unit) Tablet 125 mcg PO DAILY furosemide 20 mg tablet 20 mg PO DAILY Discontinued meloxicam 15 mg tablet 15 mg PO DAILY Discharge Orders: Discharge Order (Routine); Ordered 03/13/24 Ordered By: Ata Lara Referrals: Ty Love MD [Primary Care Provider] - 03/16/24 3:15 pm Discharge Diet: Cardiac and Diabetic Discharge Activity: Resume usual activity and Increase activity as tolerated Patient Instructions: Opioid Safety Activity Restrictions/Additional Instructions: Please do not take meloxicam given your CKD. If you have chest pain at rest on exertion you should follow-up with cardiology for possible cardiac angiogram. Dose of Cardizem has been changed. Take 6.25 mg / 2 tablets in morning and 3.125 mg / 1 tablet in evening. Discharge Attestations Time Spent in Discharge Care*: greater than 30 min Specific Discharge Activities: educating patient, discussing with pcp/other providers, discussing with correctional case records supervisor/social workers/dc planners, documenting/other paperwork and evaluating patient/reviewing data Status at Discharge: Cognitive status at discharge: cognitively intact , Behavioral status at discharge: cooperative and can be uncooperative , Functional status at discharge: independent ambulation , Overall status at discharge: patient is back to baseline Quality Metrics Clinical Quality Measures [ No reported AMI, CVA or VTE this stay] Coding Level of Care Code 32811 Total time (in minutes) for Discharge: 60 Diagnoses Chronic congestive heart failure, unspecified heart failure type I50.9 Heart failure chronicity: chronic Heart failure type: unspecified Elevated troponin R79.89 Atrial fibrillation with rapid ventricular response I48.91 Chest pain R07.9 Chest pain type: unspecified
--- NOTE | 2024-03-13 13:29 | PC.NURSE ---
Error occurred while attempting to print discharge packet. IT called and ticket filled out. Librado in IT will call this nurse back.
--- NOTE | 2024-03-13 14:46 | PC.NURSE ---
Per IT, there was an issue when transmitting Coreg order. The order has been fixed. This nurse called a verbal order into [facility] pharmacy (Coreg 6.25mg in am, 3.125mg in pm with a qty of 60.) per Dr. Lamar.
== END 2024-03-13 14:59 | disposition home or self-care (01) ==
LOC: ER 03-13 02:15 → MEDSURG 03-13 07:18
PROVIDERS: Admitting Provider Student in an Organized Health Care Education/Training Program; Emergency Provider Emergency Medicine; PCP Family Medicine Adult Medicine; Visit Provider Student in an Organized Health Care Education/Training Program
DX: I48.20 Chronic atrial fibrillation, unspecified (principal); I11.0 Hypertensive heart disease with heart failure; I50.32 Chronic diastolic (congestive) heart failure; G47.33 Obstructive sleep apnea (adult) (pediatric); R09.02 Hypoxemia; E66.01 Morbid (severe) obesity due to excess calories; Z68.43 Body mass index [BMI] 50.0-59.9, adult; I25.10 Atherosclerotic heart disease of native coronary artery without angina pectoris; I25.2 Old myocardial infarction; I13.0 Hypertensive heart and chronic kidney disease with heart failure and stage 1 through stage 4 chronic kidney disease, or unspecified chronic kidney disease; N18.30 Chronic kidney disease, stage 3 unspecified; I73.9 Peripheral vascular disease, unspecified; M19.90 Unspecified osteoarthritis, unspecified site; Z79.01 Long term (current) use of anticoagulants; E78.2 Mixed hyperlipidemia; Z79.899 Other long term (current) drug therapy; Z79.82 Long term (current) use of aspirin; Z88.0 Allergy status to penicillin; Z85.828 Personal history of other malignant neoplasm of skin; Z86.74 Personal history of sudden cardiac arrest
CPT/HCPCS: 36415; 71045; 80053; 83735; 83880; 84484; 85025; 85610; 93005; 96374; 96375; 99285; G0378; J1940; J3490

== ENCOUNTER 2024-08-14 10:16 | Outpatient (CLI) | payer MEDICARE, SELFPAY ==
[2024-08-14 11:08] LABS: Basophils % 0.6 %; Eosinophils # 0.1 10^3/uL (0.0-0.8); Eosinophils % 0.9 %; Hematocrit 34.4 % (37-53); Lymphocytes # 0.7 10^3/uL (0.8-4.8); Lymphocytes % 9.9 %; Mean Corpuscular HGB Conc 28.5 g/dL (30-55); Mean Corpuscular Hemoglobin 25.9 pg (27-33); Mean Corpuscular Volume 90.8 fl (82-101); Mean Platelet Volume 8.7 fL (7.4-10.4); Monocytes # 0.6 10^3/uL (0.2-0.9); Monocytes % 8.5 %; Neutrophils # 5.53 10^3/uL (1.8-7.7); Neutrophils % 79.7 %; Nucleated Red Blood Cells % 0 %; Platelet Count 221 10^3/cmm (157-399); Red Blood Count 3.79 10^6/uL (3.85-5.65); Red Cell Distribution Width 16.3 % (12.1-15.1); White Blood Count 6.94 10^3/uL (3.29-11.43)
[2024-08-14 11:20] LABS: Estmated Average Glucose 94; Hemoglobin A1C 4.9 % (4.0-6.0)
[2024-08-14 11:39] LABS: Alanine Aminotransferase 10 U/L (0-41); Albumin Level 4.3 g/dL (3.5-5.2); Alkaline Phosphatase 74 U/L (40-130); Aspartate Amino Transferase 22 U/L (0-40); Blood Urea Nitrogen 21 mg/dL (8-23); Calcium 10.3 mg/dL (8.5-10.5); Carbon Dioxide 22 mmol/L (22-29); Chloride 101 mmol/L (98-107); Cholesterol 133 mg/dL (0-200); Free T4 Free Thyroxine 1.75 ng/dL (0.82-1.77); Globulin 3.6 g/dL (1.3-4.6); Glomerular Filtration Rate 60.4 mL/min (90-130); Glucose 115 mg/dL (65-115); HDL Cholesterol 74 mg/dL (60-100); LDL Cholesterol Calculated 49 mg/dL (50-129); LDL HDL Ratio 0.66 RATIO (0.00-3.22); Osmolality Calculated 290 mOsm/kg (285-295); Sodium 138 mmol/L (136-145); Thyroid Stimulating Hormone 1.92 uIU/mL (0.27-4.20); Total Bilirubin 0.5 mg/dL (0.15-1.2); Total Protein 7.9 g/dL (6.6-8.7); Triglycerides 52 mg/dL (0-150)
[2024-08-14 11:40] LABS: Anion Gap 19.1 (5-19); Potassium 4.1 mmol/L (3.5-5.1)
== END 2024-08-14 10:17 | disposition home or self-care (01) ==
LOC: LAB 10:19
PROVIDERS: PCP Family Medicine; Visit Provider Family Medicine
DX: I50.22 Chronic systolic (congestive) heart failure (principal); E11.9 Type 2 diabetes mellitus without complications; I13.0 Hypertensive heart and chronic kidney disease with heart failure and stage 1 through stage 4 chronic kidney disease, or unspecified chronic kidney disease; N18.30 Chronic kidney disease, stage 3 unspecified; I48.20 Chronic atrial fibrillation, unspecified; Z79.01 Long term (current) use of anticoagulants
CPT/HCPCS: 36415; 80053; 80061; 83036; 84439; 84443; 85025; 99214

== ENCOUNTER 2025-02-25 10:19 | Inpatient (IN) | payer MEDICARE, SELFPAY ==
[2025-02-25] VITALS (34 sets, daily range): BP systolic 137–179; BP diastolic 63–106; PULSE 54–82; RESP 14–24; TEMP 36.5–36.7; O2SAT 91–98; BMI 52.9
--- NOTE | 2025-02-25 10:13 | XR_ITS ---
WS: [id number] XR chest 1V portable [id number] REASON FOR EXAM: dyspnea/cough FINDINGS: Significant cardiomegaly with enlarged left atrium. Significant central pulmonary venous distention. Hazy groundglass density and peribronchial cuffing in the mid and lower lung mckeon. XR/XR chest 1V portable [id number] IMPRESSION: Early congestive heart failure.
--- NOTE | 2025-02-25 10:21 | ECG_ITS ---
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 Measurements Intervals [place] Rate: 74 P: 86 ND: 293 QRS: 79 QRSD: 194 T: 84 QT: 457 QTc: 510 Interpretive Statements SINUS RHYTHM WITH FIRST DEGREE AV BLOCK INTRAVENTRICULAR CONDUCTION DELAY [130+ ms QRS DURATION] Compared to ECG 03/13/2024 04:57:11 First degree AV block now present Intraventricular conduction delay now present Atrial fibrillation no longer present Left bundle-branch block no longer present Electronically Signed On 02-26-2025 08:01:22 CDT by Carly Mancia M.D. [email or web address]
--- NOTE | 2025-02-25 10:44 | W.ED.SOB ---
HPI - SOB/Dyspnea General: Chief Complaint: Shortness of Breath/Dyspnea Stated Complaint: SOB History of Present Illness: HPI Narrative: 66-year-old male presents to the emergency room with complaints of shortness of breath. Patient arrives via EMS EMS. he does not usually wear oxygen. Reported he was at 60% on room air in the field. He is on 4 L per nasal cannula now at 94% does not normally wear oxygen at home. Associated symptoms: Reports orthopnea; Deny abdominal pain, chest pain or fever(s) Related Data Home Medications ?Medication ?Instructions ?Recorded ?Confirmed cholecalciferol (vitamin D3) 125 125 mcg PO DAILY 12/14/20 02/25/25 mcg (5,000 unit) tablet (Vitamin D3) valsartan 160 mg tablet 160 mg PO DAILY 02/25/25 02/25/25 Previous Rx's ?Medication ?Instructions ?Recorded auto CPAP 6-16 setting #1 ea 03/22/23 pantoprazole 40 mg tablet,delayed 40 mg PO 1XD #100 tabs 05/17/24 release amlodipine 10 mg tablet (Norvasc) 10 mg PO DAILY #90 tabs 06/04/24 amiodarone 200 mg tablet (Pacerone) 200 mg PO DAILY #100 tabs 06/18/24 gemfibrozil 600 mg tablet 600 mg PO BID #200 tabs 06/18/24 rivaroxaban 20 mg tablet 20 mg PO DAILY #100 tabs 06/18/24 CPAP mask, tubing, supplies #1 ea 08/14/24 acetaminophen 650 mg 650 mg PO Q12H PRN pain #60 tabs 08/14/24 tablet,extended release (Tylenol Arthritis Pain) furosemide 20 mg tablet 20 mg PO DAILY #100 tabs 11/02/24 hydralazine 50 mg tablet 50 mg PO TID blood pressure #100 11/14/24 tabs carvedilol 3.125 mg tablet 3.125 mg PO BID #180 tabs 11/22/24 meloxicam 15 mg tablet 15 mg PO DAILY #90 tabs 01/17/25 Allergies Allergy/AdvReac Type Severity Reaction Status Date / Time Penicillins Allergy ALGY-Difficulty Verified 08/14/24 09:43 Breathing Review of Systems Const: Denies: fever(s) or chills Card: Reports: edema, swelling of feet/ankles, dyspnea on exertion and orthopnea; Denies: chest pain Resp: Denies: dyspnea GI: Denies: abdominal pain : Denies: dysuria, urinary frequency or urinary urgency Musc: Denies: neck pain or back pain Skin/Breast: Denies: rash PFSH ED PFSH: Medical History Afib Heart failure with mildly reduced ejection fraction Cardiac murmur, previously undiagnosed Bilateral impacted cerumen Pre-diabetes Obstructive sleep apnea syndrome, severe Severe obstructive sleep apnea with hypoxia on 01/03/2023 study Basal cell carcinoma of right ear Chronic shortness of breath CKD (chronic kidney disease) stage 3, GFR 30-59 ml/min Cardiac arrest with ventricular fibrillation Chronic episodic atrial fibrillation Hx of adenomatous colonic polyps Last Colonoscopy 09/12/2020 with adenomatous polyp removed at 50 cm F/U 5 yrs Osteoarthritis Left bundle branch block History of alcohol abuse PVD (peripheral vascular disease) Morbid obesity with BMI of 50.0-59.9, adult CHF (congestive heart failure) CAD (coronary artery disease) Hx of myocardial infarction HTN (hypertension) Anemia in chronic kidney disease Hyperlipidemia Surgical History Hx of external ear surgery History of open reduction and internal fixation (ORIF) procedure Hx of foot surgery History of surgery on wrist Family History Mother No problems noted. Father No problems noted. Grandmother Diabetes Denies family history of CAD (coronary artery disease) Clotting disorder Dementia Chronic kidney disease (CKD) Suicide Anesthesia complication Bleeding disorder Lung disease Cancer Stroke Social History Smoking and tobacco/nicotine status: never used tobacco/nicotine Alcohol intake: never Substance/Drug Use: never Marital status: Single Number of children: 1 Current occupational status: disabled Physical Exam Const: GENERAL APPEARANCE: cooperative ORIENTATION/CONSCIOUSNESS: Yes awake, Yes oriented to person, Yes oriented to place and Yes oriented to time HENMT: COMMON NORMALS: normocephalic, atraumatic and hearing grossly normal bilaterally HEAD & SCALP: normocephalic and atraumatic Resp: COMMON NORMALS: normal respiratory effort, No retractions and No use of accessory muscles AUSCULTATION: crackles Cardio: COMMON NORMALS: regular rate, regular rhythm and No murmurs present (Cardio) RATE: regular rate RHYTHM: regular rhythm GI: COMMON NORMALS: Soft to palpation and No hepatosplenomegaly present AUSCULTATION: Yes normoactive bowel sounds PALPATION: Yes Soft to palpation, No Tenderness to palpation present (GI), No Guarding due to palpation present (GI) and Yes No hepatosplenomegaly present Extremity: COMMON NORMALS: normal to inspection, capillary refill normal, no clubbing, cyanosis or edema, no calf tenderness and no pedal edema Neuro: SENSORIUM/ORIENTATION: Yes oriented to person, Yes oriented to place and Yes oriented to time Skin: COMMON NORMALS: no rashes or lesions noted GENERAL SKIN EXAM: no rashes or lesions noted Course Vital Signs: Vital signs: Vital Signs Temperature 97.9 F 02/25/25 10:24 Pulse Rate 71 02/25/25 12:30 Respiratory Rate 16 02/25/25 10:24 Blood Pressure 173/82 02/25/25 12:30 Pulse Oximetry 94 02/25/25 12:30 Oxygen Delivery Me thod Nasal Cannula 02/25/25 11:29 Oxygen Flow Rate 3 02/25/25 11:29 MDM - SOB/Dyspnea Medical Decision Making Acute congestive heart failure in addition patient has normocytic anemia. He is on Xarelto. Hemoccult was negative. Discussed with Dr. Sosa will admit. Medical Records I reviewed the patient's medical records. Lab Data I reviewed the patient's lab results. 02/25/25 10:51 02/25/25 10:51 Labs/Radiology: Radiology Impressions Chest X-Ray 02/25/25 10:13 IMPRESSION: Early congestive heart failure. Laboratory Results WBC 4.97 10^3/uL (3.29-11.43) 02/25/25 10:51 RBC 2.61 10^6/uL (3.85-5.65) L 02/25/25 10:51 Hgb 6.40 g/dL (11.27-16.99) L* 02/25/25 10:51 Hct 22.5 % (37-53) L 02/25/25 10:51 MCV 86.2 fl (82-101) 02/25/25 10:51 MCH 24.5 pg (27-33) L 02/25/25 10:51 MCHC 28.4 g/dL (30-55) L 02/25/25 10:51 RDW 18.9 % (12.1-15.1) H 02/25/25 10:51 Plt Count 168 10^3/cmm (157-399) 02/25/25 10:51 MPV 8.6 fL (7.4-10.4) 02/25/25 10:51 Neut % (Auto) 74.4 % 02/25/25 10:51 Lymph % (Auto) 10.9 % 02/25/25 10:51 [place] % (Auto) 11.9 % 02/25/25 10:51 Eos % (Auto) 1.6 % 02/25/25 10:51 Baso % (Auto) 0.2 % 02/25/25 10:51 Neut # (Auto) 3.70 10^3/uL (1.8-7.7) 02/25/25 10:51 Lymph # (Auto) 0.5 10^3/uL (0.8-4.8) L 02/25/25 10:51 [place] # (Auto) 0.6 10^3/uL (0.2-0.9) 02/25/25 10:51 Eos # (Auto) 0.1 10^3/uL (0.0-0.8) 02/25/25 10:51 Baso # (Auto) 0.0 10^3/uL (0.0-0.1) 02/25/25 10:51 Nucleated RBC % (auto) 0.6 % 02/25/25 10:51 Nucleated RBCs # 0.0 /100WBC 02/25/25 10:51 Sodium 146 mmol/L (136-145) H 02/25/25 10:51 Potassium 3.4 mmol/L (3.5-5.1) L 02/25/25 10:51 Chloride 105 mmol/L (98-107) 02/25/25 10:51 Carbon Dioxide 29 mmol/L (22-29) 02/25/25 10:51 Anion Gap 15.4 (5-19) 02/25/25 10:51 BUN 24 mg/dL (8-23) H 02/25/25 10:51 Creatinine 1.5 mg/dL (0.7-1.2) H 02/25/25 10:51 GFR Calculation 46.7 mL/min (90-130) L 02/25/25 10:51 Glucose 95 mg/dL (65-115) 02/25/25 10:51 Calculated Osmolality 306 mOsm/kg (285-295) H 02/25/25 10:51 Calcium 9.5 mg/dL (8.5-10.5) 02/25/25 10:51 Total Bilirubin 0.7 mg/dL (0.15-1.2) 02/25/25 10:51 AST 17 U/L (0-40) 02/25/25 10:51 ALT 8 U/L (0-41) 02/25/25 10:51 Alkaline Phosphatase 63 U/L (40-130) 02/25/25 10:51 Total Protein 7.0 g/dL (6.6-8.7) 02/25/25 10:51 Albumin 4.0 g/dL (3.5-5.2) 02/25/25 10:51 Globulin 3.0 g/dL (1.3-4.6) 02/25/25 10:51 Urine Color Yellow (Yellow) 02/25/25 11:09 Urine Appearance Clear (CLEAR) 02/25/25 11:09 Urine pH 5.5 (5-7) 02/25/25 11:09 Ur Specific [place] 1.011 (1.005-1.030) 02/25/25 11:09 Urine Protein Trace (Negative) A 02/25/25 11:09 Urine Glucose (UA) Negative (Normal) 02/25/25 11:09 Urine Ketones Negative (Negative) 02/25/25 11:09 Urine Blood Negative (Negative) 02/25/25 11:09 Urine Nitrate Negative (Negative) 02/25/25 11:09 Urine Bilirubin Negative (Negative) 02/25/25 11:09 Urine Urobilinogen 0.2 mg/dL (Negative) 02/25/25 11:09 Ur Leukocyte Esterase Negative (Negative) 02/25/25 11:09 Urine RBC 0-2 /hpf (0-2) 02/25/25 11:09 Urine WBC 0-5 /hpf (0-5) 02/25/25 11:09 Ur Squamous Epith Cells 0-5 /hpf (0-5) 02/25/25 11:09 Amorphous Sediment Not Reportable 02/25/25 11:09 Urine Bacteria None seen /hpf (NONE) 02/25/25 11:09 Hyaline Casts 6.17 /lpf 02/25/25 11:09 All radiology interpretation(s) finalized by discharge EKG Data EKG 1: Interpretation: EKG 915 2025-04-02 sinus rhythm first-degree AV block rate of 74 QTc 485. IA interval 293. Conduction delay.Compared to EKG on 03/13/2024. On previous EKG patient had left bundle branch block and was in atrial fibrillation. Discharge Plan Discharge Patient Disposition: Admitted As Inpatient Admit Provider: Garrett Sosa Clinical Impression: Acute exacerbation of CHF (congestive heart failure), Morbid obesity with BMI of 50.0-59.9, adult, Chronic episodic atrial fibrillation, Hypoxia, Normocytic anemia, Chronic anticoagulation Condition: Stable Coding Level of Care Code ED Assisted Living Coordinator for [facility]
--- NOTE | 2025-02-25 10:58 | PC.NURSE ---
PT has multiple chronic pressure ulcers on sacrum area, and bilateral lower extremities. PT states he does not get out of his wheelchair at home
[2025-02-25 11:00] LABS: Hematocrit 22.5 % (37-53); Mean Corpuscular HGB Conc 28.4 g/dL (30-55); Mean Corpuscular Hemoglobin 24.5 pg (27-33); Mean Corpuscular Volume 86.2 fl (82-101); Nucleated Red Blood Cells % 0.6 %; Platelet Count 168 10^3/cmm (157-399); Red Blood Count 2.61 10^6/uL (3.85-5.65); White Blood Count 4.97 10^3/uL (3.29-11.43)
[2025-02-25] MEDS: FUROsemide 10 mg/mL SDV 10mL 60 MG IVP ×2 (11:15→15:58)
[2025-02-25 11:18] LABS: Alanine Aminotransferase 8 U/L (0-41); Albumin Level 4.0 g/dL (3.5-5.2); Alkaline Phosphatase 63 U/L (40-130); Anion Gap 15.4 (5-19); Aspartate Amino Transferase 17 U/L (0-40); Blood Urea Nitrogen 24 mg/dL (8-23); Calcium 9.5 mg/dL (8.5-10.5); Carbon Dioxide 29 mmol/L (22-29); Chloride 105 mmol/L (98-107); Creatinine Clr Calc Pharmacy 77.1407; Globulin 3.0 g/dL (1.3-4.6); Glucose 95 mg/dL (65-115); Osmolality Calculated 306 mOsm/kg (285-295); Potassium 3.4 mmol/L (3.5-5.1); Sodium 146 mmol/L (136-145); Total Protein 7.0 g/dL (6.6-8.7)
[2025-02-25] MEDS: hyDRALAzine 20 mg/mL INJ 1 mL 10 MG IVP (11:34)
[2025-02-25] MEDS: HYDROcodone-acetaminophen 5-325 mg Tablet 1 TAB PO (11:34)
[2025-02-25 11:35] LABS: Hemoglobin 6.40 g/dL (11.27-16.99)
[2025-02-25 11:41] LABS: Glucose Urine UA Negative (Normal); Nitrate Urine Negative (Negative); Specific Gravity, Urine 1.011 (1.005-1.030)
[2025-02-25 11:45] LABS: Add Urine Microscopic? YES
--- NOTE | 2025-02-25 13:02 | PC.PHAR ---
Pt uses [place] mail order [facility] for filling medications.
[2025-02-25 13:17] LABS: NT Pro B Type Natriuretic Pept 4105 pg/mL (0-125)
--- NOTE | 2025-02-25 13:47 | PC.NURSE ---
PT refusing blood pressures or monitoring, states the cords are pissing me off
--- NOTE | 2025-02-25 13:52 | PM.HP ---
Providers/Chief Complaint Admitting Physician: Garrett Sosa Primary Care Provider: Brent Samuel MD Chief Complaint: SOB History of Present Illness Kristopher Jesus is a 66 year old gentleman with history of congestive heart failure (CHF), atrial fibrillation (AF), prediabetes, obstructive sleep apnea (DAVID; not using CPAP), chronic kidney disease (CKD), left bundle branch block (LBBB), remote history of alcohol use disorder, peripheral vascular disease (PVD), morbid obesity, coronary artery disease (CAD), hypertension (HTN), anemia, and hyperlipidemia (HLD) presented to the emergency department with shortness of breath. Reports oxygen saturation was low on arrival. Describes orthopnea with cough when lying flat and poor sleep (typically 2?4 hours per 24 hours; often falls asleep upright in wheelchair). Notes leg swelling. Denies visible hematuria or red blood in stool. Prior endoscopy approximately 15?20 years ago; colonoscopy approximately 4?5 years ago with 1?2 polyps previously. Family history notable for multiple colon polyps in father and sister. Reports very little alcohol use; denies tobacco use; uses marijuana. Recently prescribed meloxicam (02/12) and has been taking it for pain relief. States he has had episodes where the ?bottom part of the heart goes really fast,? previously associated with low or high potassium. Reports he lives at home, largely wheelchair-bound, has not left the house in about a year, and has pressure sores from prolonged sitting. Has assistance at home from a woman currently living with him. States he wishes full resuscitation (CPR) and identifies son or sister as decision-makers if needed. Home blood pressure medications discussed; patient reports taking hydralazine totaling 150 mg per dose three times daily and recently started valsartan, which he feels works well. Review of Systems Const: Denies: fever(s), chills, body aches or malaise ENMT: Denies: throat pain Card: Reports: edema, swelling of feet/ankles, dyspnea on exertion and orthopnea; Denies: chest pain or pre-syncope Resp: Reports: dyspnea and productive cough; Denies: change in phlegm color or hemoptysis GI: Denies: abdominal pain, nausea, vomiting, diarrhea, constipation, hematochezia or melena : Denies: flank pain, difficulty urinating, urinary frequency or hematuria Musc: Denies: back pain, joint swelling or joint redness Skin/Breast: Denies: rash or new lesions Neuro: Denies: headache(s) or confusion Medications/Allergies Home Medications ?Medication ?Instructions ?Recorded ?Confirmed ?Last Taken ?Type cholecalciferol (vitamin D3) 125 125 mcg PO DAILY 12/14/20 02/25/25 02/25/25 History mcg (5,000 unit) tablet (Vitamin D3) auto CPAP 6-16 setting #1 ea 03/22/23 02/25/25 Unknown Rx pantoprazole 40 mg tablet,delayed 40 mg PO 1XD #100 tabs 05/17/24 02/25/25 02/25/25 Rx release amlodipine 10 mg tablet (Norvasc) 10 mg PO DAILY #90 tabs 06/04/24 02/25/25 02/25/25 Rx amiodarone 200 mg tablet (Pacerone) 200 mg PO DAILY #100 tabs 06/18/24 02/25/25 02/25/25 Rx gemfibrozil 600 mg tablet 600 mg PO BID #200 tabs 06/18/24 02/25/25 02/25/25 Rx rivaroxaban 20 mg tablet 20 mg PO DAILY #100 tabs 06/18/24 02/25/25 02/25/25 Rx CPAP mask, tubing, supplies #1 ea 08/14/24 02/25/25 Unknown Rx acetaminophen 650 mg 650 mg PO Q12H PRN pain #60 tabs 08/14/24 02/25/25 Unknown Rx tablet,extended release (Tylenol Arthritis Pain) furosemide 20 mg tablet 20 mg PO DAILY #100 tabs 11/02/24 02/25/25 02/25/25 Rx hydralazine 50 mg tablet 50 mg PO TID blood pressure #100 11/14/24 02/25/25 02/25/25 Rx tabs carvedilol 3.125 mg tablet 3.125 mg PO BID #180 tabs 11/22/24 02/25/25 02/25/25 Rx meloxicam 15 mg tablet 15 mg PO DAILY #90 tabs 01/17/25 02/25/25 02/25/25 Rx valsartan 160 mg tablet 160 mg PO DAILY 02/25/25 02/25/25 02/25/25 History Allergies Allergy/AdvReac Type Severity Reaction Status Date / Time Penicillins Allergy ALGY-Difficulty Verified 08/14/24 09:43 Breathing PFSH Acute PFSH: Medical History Afib Heart failure with mildly reduced ejection fraction Cardiac murmur, previously undiagnosed Bilateral impacted cerumen Pre-diabetes Obstructive sleep apnea syndrome, severe Severe obstructive sleep apnea with hypoxia on 01/03/2023 study Basal cell carcinoma of right ear Chronic shortness of breath CKD (chronic kidney disease) stage 3, GFR 30-59 ml/min Cardiac arrest with ventricular fibrillation Chronic episodic atrial fibrillation Hx of adenomatous colonic polyps Last Colonoscopy 09/12/2020 with adenomatous polyp removed at 50 cm F/U 5 yrs Osteoarthritis Left bundle branch block History of alcohol abuse PVD (peripheral vascular disease) Morbid obesity with BMI of 50.0-59.9, adult CHF (congestive heart failure) CAD (coronary artery disease) Hx of myocardial infarction HTN (hypertension) Anemia in chronic kidney disease Hyperlipidemia Surgical History Hx of external ear surgery History of open reduction and internal fixation (ORIF) procedure Hx of foot surgery History of surgery on wrist Family History Mother No problems noted. Father No problems noted. Grandmother Diabetes Denies family history of CAD (coronary artery disease) Clotting disorder Dementia Chronic kidney disease (CKD) Suicide Anesthesia complication Bleeding disorder Lung disease Cancer Stroke Social History Smoking and tobacco/nicotine status: never used tobacco/nicotine Alcohol intake: never Substance/Drug Use: never Marital status: Single Number of children: 1 Current occupational status: disabled Vitals/I&O/Wt Last Vital Signs Temp 97.9 F 02/25/25 10:24 Pulse 71 02/25/25 12:30 Resp 16 02/25/25 10:24 BP 173/82 02/25/25 12:30 Pulse Ox 94 02/25/25 12:30 O2 Del Method Nasal Cannula 02/25/25 11:29 O2 Flow Rate 3 02/25/25 11:29 Weight last 48 hrs Weight 172.365 kg Physical Exam Const: COMMON NORMALS: patient oriented x3 and alert GENERAL APPEARANCE: cooperative NUTRITIONAL APPEARANCE: obese morbidly obese ORIENTATION/CONSCIOUSNESS: Yes awake HENMT: COMMON NORMALS: oropharynx normal Neck/C-Spine: COMMON NORMALS: no JVD Resp: COMMON NORMALS: normal respiratory effort and clear to auscultation bilaterally AUSCULTATION: clear to auscultation bilaterally Cardio: COMMON NORMALS: no JVD, regular rhythm, S1 normal heart sound present, S2 normal heart sound present and No murmurs present (Cardio) RHYTHM: regular rhythm HEART SOUNDS: S1 normal heart sound present and S2 normal heart sound present GI: COMMON NORMALS: Normal to inspection, nondistended, normoactive bowel sounds present, Soft to palpation and non-tender PALPATION: Yes Soft to palpation Extremity: GENERAL: Yes edema (Severe edema superimposed on chronic lymphedema bilaterally) OTHER: Chronic lymphedema with chronic skin changes of bilateral shins with cornification, thickening and coarse texture of the skin with severe chronic lymphedema Neuro: COMMON NORMALS: patient oriented x3 and moves all extremities SENSORIUM/ORIENTATION: Yes alert Data 02/25/25 10:51 02/25/25 10:51 A&P Assessment and plan 1. Acute on chronic anemia: Markedly low hemoglobin on this presentation; prior mild anemia in records; evaluation planned. Reviewed prior CBC. He has recently been set up with a prescription for meloxicam. Also take Xarelto. Has not noticed any overt hematochezia or melena. No hematuria. No other obvious bleeding. Small amount of bleeding at the site of a pressure wound, but no large amounts of blood loss. Reports some prior issues with anemia in the past, possibly not producing enough red cells. Question of possibly anemia chronic disease with CKD and inactivity. Versus acute GI bleed in the setting of NSAID use with anticoagulation. Initial admission to intensive care unit given he is also on carvedilol, and so may not exhibit expected tachycardic response. Reviewed vitals, CBC, CMP, UA, chest x-ray, EKG, ED provider note, discussed with ED provider, discussed with surgery and discussed consultation with patient. - Request peripheral smear, reticulocyte count, thyroid-stimulating hormone (TSH), vitamin B12, and iron studies - Repeat complete blood count (CBC) tonight and tomorrow morning - Hold anticoagulation for now given acute anemia and risk of bleeding - Transfuse red blood cells as requested in the emergency department - Consult surgery for endoscopy to evaluate for upper gastrointestinal bleeding - Keep NPO with sips and medications for now - Administer intravenous proton pump inhibitor (PPI) - Hold nonsteroidal anti-inflammatory drugs (NSAIDs) - Hold anticoagulation 2. Acute exacerbation of CHF (congestive heart failure): Acute on chronic diastolic congestive heart failure with severe exacerbation, newly requiring oxygen of 4 L on presentation, saturation in the 60s, with orthopnea, peripheral edema superimposed on chronic lymphedema. Congestive changes on the x-ray. Ordered and noted elevated NT proBNP. Clinical and imaging concern for fluid overload; prior echocardiogram outlined diastolic dysfunction per review; current management initiated. - Continue intravenous furosemide (Lasix) 60 mg IV every 12 hours, monitor for risk of electrolyte abnormality with IV diuresis. Monitor for risk of CHRIS. Reassess chemistry. - Obtain echocardiogram to reassess cardiac function - Monitor intake and output and chemistry panel - Wean oxygen as tolerated with diuresis 3. Atrial fibrillation with rapid ventricular response: Chronic AF with current rate/rhythm management; anticoagulation held due to bleeding risk. - Continue amiodarone 200 mg daily - Continue carvedilol 3.125 mg by mouth twice daily - Hold rivaroxaban (Xarelto) for now due to acute anemia and bleeding risk 4. Osteoarthritis: Hold meloxicam. Tylenol as needed. Plan: Chronic kidney disease with possible acute kidney injury : CKD noted; concern for acute kidney injury on presentation. - Monitor vital signs and basic metabolic panel (chemistry) - Track intake and output Hypertension : Elevated blood pressure in ED; home regimen reviewed. - Resume hydralazine 150 mg three times daily (per patient report) - Continue amlodipine 10 mg daily - Continue valsartan 160 mg by mouth daily (as noted in plan) Lower-extremity edema with chronic venous stasis/lymphedema : Chronic severe stasis/lymphedema with superimposed edema in setting of acute CHF. - Assess for deep vein thrombosis (DVT) if feasible - Sequential compression devices (SCDs) not to be placed on lower extremities; attempt placement on an upper extremity only if possible Pressure ulcers : Pressure-related skin breakdown from prolonged wheelchair use. - Frequent repositioning - Foam dressings - Nutritional shakes once diet is resumed - Encourage mobilization when safer; for now, bed rest as noted Obstructive sleep apnea (not using CPAP) : DAVID acknowledged; patient not using CPAP. Anticoagulation management : Anticoagulation with rivaroxaban (Xarelto) reported but not confirmed; held due to bleeding risk. - Hold anticoagulation pending evaluation of anemia/possible GI bleeding Follow-up : Inpatient management and monitoring underway; initial ICU admission noted in plan text. - Admit to ICU for monitoring given possible acute upper GI bleed and acute CHF - Monitor vitals - Wean oxygen as able with diuresis - Reassess hemoglobin levels tonight and tomorrow morning PDMP PDMP Reviewed: Not Reviewed Attestations Medical Necessity Statement*: Admission over 2 midnights will be necessary for assessment and management of acute on chronic anemia, acute congestive heart failure and gentleman with underlying CKD, withGiurgius on meloxicam, on anticoagulation with Xarelto for atrial fibrillation, uncontrolled hypertension, additional comorbidities as above. and High MDM includes amount and/or complexity of data reviewed/ordered [ previous or external records, resulted lab(s)/test(s), ordered lab(s)/test(s) and other healthcare professional discussion] and described risk of complication, morbidity or mortality of management as documented Diagnoses Acute on chronic anemia D64.9 Acute exacerbation of CHF (congestive heart failure) I50.9 Atrial fibrillation with rapid ventricular response I48.91 Osteoarthritis M19.90
--- NOTE | 2025-02-25 14:24 | PM.CONSULT ---
Providers/Reason For Consult Consulting Physician/Specialty*: General Surgery Reason for Consult*: Iron deficiency anemia possible GI bleeding Attending Physician: aGrrett Sosa Primary Care Provider: Brent Samuel MD History of Present Illness History of Present Illness Kristopher Jesus is a 66 year old male with multiple medical comorbidities who presents with shortness of breath his hemoglobin was noted to be 6.4. Last colonoscopy about 3 years ago he was given a 5-year Interval, Hemoccult is negative, denies hematochezia or any other changes in the bowel movements. Due to low hemoglobin have been consulted for evaluation for possible endoscopy. Review of Systems General: Reports: 10 or more systems reviewed and unremarkable except in HPI and below Medications/Allergies Home Medications ?Medication ?Instructions ?Recorded ?Confirmed ?Last Taken ?Type cholecalciferol (vitamin D3) 125 125 mcg PO DAILY 12/14/20 02/25/25 02/25/25 History mcg (5,000 unit) tablet (Vitamin D3) auto CPAP 6-16 setting #1 ea 03/22/23 02/25/25 Unknown Rx pantoprazole 40 mg tablet,delayed 40 mg PO 1XD #100 tabs 05/17/24 02/25/25 02/25/25 Rx release amlodipine 10 mg tablet (Norvasc) 10 mg PO DAILY #90 tabs 06/04/24 02/25/25 02/25/25 Rx amiodarone 200 mg tablet (Pacerone) 200 mg PO DAILY #100 tabs 06/18/24 02/25/25 02/25/25 Rx gemfibrozil 600 mg tablet 600 mg PO BID #200 tabs 06/18/24 02/25/25 02/25/25 Rx rivaroxaban 20 mg tablet 20 mg PO DAILY #100 tabs 06/18/24 02/25/25 02/25/25 Rx CPAP mask, tubing, supplies #1 ea 08/14/24 02/25/25 Unknown Rx acetaminophen 650 mg 650 mg PO Q12H PRN pain #60 tabs 08/14/24 02/25/25 Unknown Rx tablet,extended release (Tylenol Arthritis Pain) furosemide 20 mg tablet 20 mg PO DAILY #100 tabs 11/02/24 02/25/25 02/25/25 Rx hydralazine 50 mg tablet 50 mg PO TID blood pressure #100 11/14/24 02/25/25 02/25/25 Rx tabs carvedilol 3.125 mg tablet 3.125 mg PO BID #180 tabs 11/22/24 02/25/25 02/25/25 Rx meloxicam 15 mg tablet 15 mg PO DAILY #90 tabs 01/17/25 02/25/25 02/25/25 Rx valsartan 160 mg tablet 160 mg PO DAILY 02/25/25 02/25/25 02/25/25 History Allergies Allergy/AdvReac Type Severity Reaction Status Date / Time Penicillins Allergy ALGY-Difficulty Verified 08/14/24 09:43 Breathing PFSH Acute PFSH: Medical History (Updated 02/25/25 @ 14:07 by Garrett Sosa MD) Afib Heart failure with mildly reduced ejection fraction Cardiac murmur, previously undiagnosed Bilateral impacted cerumen Pre-diabetes Obstructive sleep apnea syndrome, severe Severe obstructive sleep apnea with hypoxia on 01/03/2023 study Basal cell carcinoma of right ear Chronic shortness of breath CKD (chronic kidney disease) stage 3, GFR 30-59 ml/min Cardiac arrest with ventricular fibrillation Chronic episodic atrial fibrillation Hx of adenomatous colonic polyps Last Colonoscopy 09/12/2020 with adenomatous polyp removed at 50 cm F/U 5 yrs Osteoarthritis Left bundle branch block History of alcohol abuse PVD (peripheral vascular disease) Morbid obesity with BMI of 50.0-59.9, adult CHF (congestive heart failure) CAD (coronary artery disease) Hx of myocardial infarction HTN (hypertension) Anemia in chronic kidney disease Hyperlipidemia Surgical History Hx of external ear surgery History of open reduction and internal fixation (ORIF) procedure Hx of foot surgery History of surgery on wrist Family History Mother No problems noted. Father No problems noted. Grandmother Diabetes Denies family history of CAD (coronary artery disease) Clotting disorder Dementia Chronic kidney disease (CKD) Suicide Anesthesia complication Bleeding disorder Lung disease Cancer Stroke Social History Smoking and tobacco/nicotine status: never used tobacco/nicotine Alcohol intake: never Substance/Drug Use: never Marital status: Single Number of children: 1 Current occupational status: disabled Vitals/I&O/Wt Last Vital Signs Temp 97.9 F 02/25/25 10:24 Pulse 71 02/25/25 12:30 Resp 16 02/25/25 10:24 BP 173/82 02/25/25 12:30 Pulse Ox 94 02/25/25 12:30 O2 Del Method Nasal Cannula 02/25/25 11:29 O2 Flow Rate 3 02/25/25 11:29 Weight last 48 hrs Weight 380 lb Physical Exam GI: OTHER: Abdomen soft nontender nondistended. Data 02/25/25 10:51 02/25/25 10:51 A&P Assessment and plan 1. Chronic anticoagulation: 2. Acute on chronic anemia: Plan: 66-year-old male with acute anemia in the setting of anticoagulation use. I have been consulted for evaluation for possible GI bleeding. Although Hemoccult is negative since patient has several risk factors I think it will be appropriate to proceed with an upper endoscopy with possible bleeding control for evaluation of possible bleeding. In the case of a negative upper endoscopy patient can proceed with the colonoscopy in the outpatient setting. I discussed all risk benefits of the upper endoscopy including recurrent bleeding, need for additional interventions, perforation of the esophagus stomach or duodenum requiring surgical intervention transfer to higher level care, need for additional procedures in the future. He shows understanding agrees with the plan. Will keep the patient n.p.o. after midnight in anticipation for endoscopy tomorrow. Of note I have found on the documentation from the ER that the patient also has some decubitus ulcers that he is not getting any treatment at the moment. I have offered to evaluate his wounds early in the morning tomorrow and if needed I can initiate wound care while he is inpatient and when he transition to the outpatient setting he can follow-up with the wound care clinic. PDMP PDMP Reviewed: Not Reviewed Coding Level of Care Code Acute Code for Chg Fwd Diagnoses Chronic anticoagulation Z79.01 Acute on chronic anemia D64.9
--- NOTE | 2025-02-25 15:22 | USR_ITS ---
PROCEDURE INFORMATION: Exam: US Duplex Lower Extremity Veins, Bilateral Exam date and time: 02/25/2025 5:46 PM Age: 66 years old Clinical indication: Swelling (edema) of limb; Lower extremity, bilateral; Additional info: Assess for dvt TECHNIQUE: Imaging protocol: Real-time duplex ultrasound of the bilateral extremities with 2-D ruiz scale, color Doppler flow and spectral waveform analysis including responses to compression and other maneuvers (when performed) with image documentation. Complete exam focused on the lower extremity veins. COMPARISON: No relevant prior studies available. FINDINGS: Right deep veins: Unremarkable. The common femoral, femoral, proximal profunda femoral and popliteal veins are patent without thrombus. Normal Doppler waveforms. Normal compressibility and/or augmentation response. Left deep veins: Unremarkable. The common femoral, femoral, proximal profunda femoral and popliteal veins are patent without thrombus. Normal Doppler waveforms. Normal compressibility and/or augmentation response. Superficial veins: Greater saphenous veins at the saphenofemoral junctions are patent bilaterally without thrombus. Soft tissues: Subcutaneous edema, most pronounced on the left. US/CV venous duplex [facility] [id number] IMPRESSION: No sonographic evidence of deep venous thrombosis.
[2025-02-25 15:45] LABS: Ferritin 38 ng/mL (30-400); Iron 27 ug/dL (59-158); Total Iron Binding Capacity 428 mcg/dl; Unsaturated Iron Binding 401 ug/dL (112-347)
[2025-02-25] MEDS: pantoprazole 40 mg SDV IVP (15:58)
[2025-02-25] MEDS: potassium chloride oral liq 20 mEq/15 mL UDC 40 MEQ PO (15:58)
[2025-02-25] MEDS: morphine 4 mg/mL SDV 1 mL 2 MG IVP (15:59)
[2025-02-25 16:12] LABS: Thyroid Stimulating Hormone 2.18 uIU/mL (0.27-4.20)
[2025-02-25 16:17] LABS: Hematocrit 22.4 % (37-53); Retic Production Index 2.02
[2025-02-25 18:53] LABS: Vitamin B12 > 2000 pg/mL (232-1245)
[2025-02-25 19:56] LABS: Hemoglobin 6.60 g/dL (11.27-16.99)
[2025-02-25 20:48] LABS: Hemoglobin 6.70 g/dL (11.27-16.99)
--- NOTE | 2025-02-25 22:37 | PC.NURSE ---
Addendum entered by DAX Soto 02/26/25 05:34: Patient states he is agreeable to putting a hospital gown on immediately before being taken for his endoscopy because he does not want to take his thermal shirt off. Original Note: Patient got upset with this nurse because upon entering his room his television was very loud and it was difficult to hear what he had said, and after asking him to repeat himself he stated nevermind now just get out of my room. After leaving and going back when patient had medications due, the full assessment was explained to the patient, including a skin assessment as the off going nurse said patients legs and feet were very warm and inflamed. Patient stated they look like shit, there thats all you need to know. Patient was asked if a skin assessment, along with cleaning him up and putting him in a hospital gown would be okay, he allowed his legs to be examined but refused being cleaned up and being placed in a hospital gown.
--- NOTE | 2025-02-25 22:42 | PC.NURSE ---
Dr. Nash notified of patients Hgb and Hct after transfusion and lab redraw. He placed order for another transfusion. Blood bank called and did not speak to patients nurse, but they said the order would not work. After a short time of not hearing from blood bank Dr. Nash was notified who placed a new order. [place], from blood bank, then called at [phone] and told this nurse that 2 units were now ready for this patient.
[2025-02-26] VITALS (66 sets, daily range): BP systolic 122–193; BP diastolic 49–124; PULSE 54–88; RESP 12–26; TEMP 36–36.9; O2SAT 85–100
--- NOTE | 2025-02-26 03:20 | PC.NURSE ---
Provider, Dr. Nash, gave verbal orders to administer second unit of PRBC before morning labs.
[2025-02-26] MEDS: pantoprazole 40 mg SDV IVP ×2 (03:57→15:11)
[2025-02-26] MEDS: FUROsemide 10 mg/mL SDV 10mL 60 MG IVP ×2 (04:02→15:59)
--- NOTE | 2025-02-26 04:39 | PC.NURSE ---
Clarified with Dr. Nash whether to hold or admin 0400 dose of patients furosemide due to low potassium. Dr. Nash gave order to administer 0400 furosemide
--- NOTE | 2025-02-26 05:48 | W.PM.OPSUD ---
Surgery/Procedure H&P Update DATE OF PROCEDURE: February 26, 2025 DATE H&P PERFORMED: 02/25/25 H&P UPDATE INFORMATION: I have reviewed H&P completed within last 30 days, I have examined patient prior to procedure, No changes to prior documentation, H&P is in [facility] EMR on date indicated and Risks and benefits of the procedure reviewed PLANNED PROCEDURE: Operation Date: 02/26/25 07:00 Proposed Procedures p EGD(Not Applicable) - Sekou Stout MD
[2025-02-26 07:21] LABS: Chloride 100 mmol/L (98-107); Glucose 86 mg/dL (65-115); Potassium 4.2 mmol/L (3.5-5.1); Sodium 144 mmol/L (136-145)
[2025-02-26 07:39] LABS: Hematocrit 30.0 % (37-53); Hemoglobin 9.00 g/dL (11.27-16.99); Mean Corpuscular HGB Conc 30.0 g/dL (30-55); Mean Corpuscular Hemoglobin 25.3 pg (27-33); Mean Corpuscular Volume 84.3 fl (82-101); Nucleated Red Blood Cells % 0.5 %; Platelet Count 198 10^3/cmm (157-399); Red Blood Count 3.56 10^6/uL (3.85-5.65); White Blood Count 5.53 10^3/uL (3.29-11.43)
[2025-02-26 07:47] LABS: Anion Gap 22.2 (5-19); Blood Urea Nitrogen 21 mg/dL (8-23); Calcium 9.6 mg/dL (8.5-10.5); Carbon Dioxide 26 mmol/L (22-29); Creatinine Clr Calc Pharmacy 82.6508; Magnesium 1.8 mg/dL (1.7-2.3); Osmolality Calculated 300 mOsm/kg (285-295)
--- NOTE | 2025-02-26 08:10 | P.PN_ITS ---
Subjective 2 Subjective: Patient has been okay hemoglobin has trended up after transfusion no abdominal pain no blood in the stool. Vitals/I&O/Wt Last Vital Signs Temp 98.2 F 02/26/25 05:53 Pulse 71 02/26/25 05:53 Resp 18 02/26/25 05:53 BP 186/88 02/26/25 05:53 Pulse Ox 94 02/26/25 05:53 O2 Del Method Room Air 02/25/25 16:10 O2 Flow Rate 4 02/25/25 15:40 02/25/25 02/26/25 02/26/25 22:59 06:59 14:59 Intake Total 250 / 250 700 / 950 Output Total 1200 / 1200 800 / 2000 Balance -950 / -950 -100 / -1050 Weight last 48 hrs Weight 380 lb Physical Exam 2 GI: OTHER: Abdominal exam is benign abdomen soft nontender Data 02/26/25 06:58 02/26/25 06:58 A&P Assessment and plan 1. Morbid obesity with BMI of 50.0-59.9, adult: 2. Chronic anticoagulation: 3. Normocytic anemia: 4. Acute on chronic anemia: Plan: Upper endoscopy was done only showing mild gastritis, no evidence of upper GI bleeding. Once patient is discharged from the hospital he can follow-up with the general surgery clinic and we can offer to repeat upper endoscopy and colonoscopy in the near future. I will recommend that he stays on high-dose PPI. All other management per medical team. PDMP PDMP Reviewed: Not Reviewed Attestations 2 Medical Necessity Statement*: Per medical team Coding Level of Care Code Acute Code for Chg Fwd Diagnoses Morbid obesity with BMI of 50.0-59.9, adult E66.01; Z68.43 Chronic anticoagulation Z79.01 Normocytic anemia D64.9 Acute on chronic anemia D64.9
--- NOTE | 2025-02-26 08:17 | P.PN_ITS ---
Subjective 2 Subjective: He is very hungry. Denies any outward bleeding. Breathing little bit better today. No chest pain. Vitals/I&O/Wt Last Vital Signs Temp 98.2 F 02/26/25 05:53 Pulse 71 02/26/25 05:53 Resp 18 02/26/25 05:53 BP 186/88 02/26/25 05:53 Pulse Ox 94 02/26/25 05:53 O2 Del Method Room Air 02/25/25 16:10 O2 Flow Rate 4 02/25/25 15:40 02/25/25 02/26/25 02/26/25 22:59 06:59 14:59 Intake Total 250 / 250 700 / 950 Output Total 1200 / 1200 800 / 2000 Balance -950 / -950 -100 / -1050 Weight last 48 hrs Weight 172.365 kg Physical Exam 2 Const: COMMON NORMALS: patient oriented x3 and alert GENERAL APPEARANCE: c ooperative NUTRITIONAL APPEARANCE: obese morbidly obese O RIENTATION/CONSCIOUSNESS: Yes awake HENMT: COMMON NORMALS: oropharynx normal Neck/C-Spine: COMMON NORMALS: no JVD Resp: COMMON NORMALS: normal respiratory effort and clear to auscultation bilaterally AUSCULTATION: clear to auscultation bilaterally Cardio: COMMON NORMALS: no JVD, regular rhythm, S1 normal heart sound present, S2 normal heart sound present and No murmurs present (Cardio) RHYTHM: regular rhythm HEART SOUNDS: S1 normal heart sound present and S2 normal heart sound present GI: COMMON NORMALS: Normal to inspection, nondistended, normoactive bowel sounds present, Soft to palpation and non-tender PALPATION: Yes Soft to palpation Extremity: GENERAL: Yes edema (Severe edema superimposed on chronic lymphedema bilaterally) OTHER: Pitting edema superimposed on chronic lymphedema with chronic skin changes of bilateral shins with cornification, thickening and coarse texture of the skin with severe chronic lymphedema Neuro: COMMON NORMALS: patient oriented x3 and moves all extremities S ENSORIUM/ORIENTATION: Yes alert Data 02/26/25 11:37 02/26/25 06:58 A&P Assessment and plan 1. Acute on chronic anemia: Reviewed blood counts, noted received 3 units RBC transfusion hemoglobin with response up from 9 this morning. Repeat hemoglobin. Underwent EGD with finding of gastritis, no signs of active bleed or obvious bleed source. Discussed with surgeon. Trial of clear liquids. Continue to withhold and discontinue NSAID. Continue to hold anticoagulation. To follow-up for outpatient arrangements for colonoscopy. Repeat hemoglobin this afternoon reviewed, 8.3. Transfer out of ICU. Will reassess blood counts. - Administer intravenous proton pump inhibitor (PPI) - Hold nonsteroidal anti-inflammatory drugs (NSAIDs) - Hold anticoagulation 2. Acute exacerbation of CHF (congestive heart failure): Reviewed vitals, intake and output, noted and negative balance -2.9 L. Reviewed chemistry, potassium is good. Creatinine unchanged. Magnesium checked and noted 1.8. Repeat level. Continue IV diuresis, monitor for risk of electrolyte deficiency, CHRIS on CKD. Monitor volume status. Reviewed echocardiogram, EF noted 58%, grade 3 diastolic dysfunction mild MVR. Acute on chronic diastolic congestive heart failure with severe exacerbation, newly requiring oxygen of 4 L on presentation, saturation in the 60s, with orthopnea, peripheral edema superimposed on chronic lymphedema. Congestive changes on the x-ray. Ordered and noted elevated NT proBNP. Clinical and imaging concern for fluid overload; prior echocardiogram outlined diastolic dysfunction per review; current management initiated. - Continue intravenous furosemide (Lasix) 60 mg IV every 12 hours, monitor for risk of electrolyte abnormality with IV diuresis. Monitor for risk of CHRIS. Reassess chemistry. - Obtain echocardiogram to reassess cardiac function - Monitor intake and output and chemistry panel - Wean oxygen as tolerated with diuresis 3. Atrial fibrillation with rapid ventricular response: Chronic AF with current rate/rhythm management; anticoagulation held due to bleeding risk. - Continue amiodarone 200 mg daily - Continue carvedilol 3.125 mg by mouth twice daily - Hold rivaroxaban (Xarelto) for now due to acute anemia and bleeding risk 4. Osteoarthritis: Hold meloxicam. Tylenol as needed. Plan: Chronic kidney disease with possible acute kidney injury : CKD noted; concern for acute kidney injury on presentation. - Monitor vital signs and basic metabolic panel (chemistry) - Track intake and output Hypertension : Maria Isabel uncontrolled. Increase losartan to 100 mg. - Resume hydralazine 150 mg three times daily (per patient report) - Continue amlodipine 10 mg daily Lower-extremity edema with chronic venous stasis/lymphedema : Chronic severe stasis/lymphedema with superimposed edema in setting of acute CHF. - Assess for deep vein thrombosis (DVT) if feasible - Sequential compression devices (SCDs) not to be placed on lower extremities; attempt placement on an upper extremity only if possible Pressure ulcers : Pressure-related skin breakdown from prolonged wheelchair use. - Frequent repositioning - Foam dressings - Nutritional shakes once diet is resumed - Encourage mobilization when safer; for now, bed rest as noted Obstructive sleep apnea (not using CPAP) : DAVID acknowledged; patient not using CPAP. Anticoagulation management : Anticoagulation with rivaroxaban (Xarelto) reported but not confirmed; held due to bleeding risk. - Hold anticoagulation pending evaluation of anemia/possible GI bleeding Follow-up : Inpatient management and monitoring underway; initial ICU admission noted in plan text. - Admit to ICU for monitoring given possible acute upper GI bleed and acute CHF - Monitor vitals - Wean oxygen as able with diuresis - Reassess hemoglobin levels tonight and tomorrow morning PDMP PDMP Reviewed: Not Reviewed Attestations 2 Medical Necessity Statement*: Continue admission for assessment and management of acute on chronic anemia, acute congestive heart failure and gentleman with underlying CKD, withGiurgius on meloxicam, on anticoagulation with Xarelto for atrial fibrillation, uncontrolled hypertension, additional comorbidities as above. and High MDM includes amount and/or complexity of data reviewed/ordered [ resulted lab(s)/test(s), ordered lab(s)/test(s) and other healthcare professional discussion] and described risk of complication, morbidity or mortality of management as documented Diagnoses Acute on chronic anemia D64.9 Acute exacerbation of CHF (congestive heart failure) I50.23 Heart failure type: systolic Atrial fibrillation with rapid ventricular response I48.91 Osteoarthritis M19.90
--- NOTE | 2025-02-26 08:30 | ANE.PACU2 ---
Inpatient post-anesthesia follow up: Airway intact: Yes Vital signs: Temperature 96.8 F Pulse Rate 75 Respiratory Rate 21 Blood Pressure 183/61 Pulse Oximetry 99 Oxygen Delivery Me thod [ Nasal Cannula Current Rate & Del matilde] Oxygen Delivery Me thod Nasal Cannula Oxygen Flow Rate [ Current Rate 4 & Delivery] Oxygen Flow Rate 10 Fraction of Inspir ed Oxygen Hydration adequate: Yes Nausea and vomiting: No Pain level: 1 Mental status: Baseline
[2025-02-26] MEDS: morphine 4 mg/mL SDV 1 mL 2 MG IVP ×2 (09:23→17:41)
[2025-02-26 11:44] LABS: Hemoglobin 8.30 g/dL (11.27-16.99)
--- NOTE | 2025-02-26 15:22 | USCV_ITS ---
Kristopher Jesus Age: 66 Gender: M : 02/28/1958 Exam Date: 02/26/2025 08:48 Ordering Phys: Garrett Sosa MD Technologist: DAIV Exam Location: [facility] – [place] Indication: chf BP: 187 / 102 HR: 76 Rhythm: Sinus Technical Quality: Adequate MEASUREMENTS (Male / Female) Normal Values 2D ECHO LV Diastolic Diameter PLAX 6.1 cm 4.2 - 5.9 / 3.9 - 5.3 cm IVS Diastolic Thickness 1.3 cm 0.6 - 1.0 / 0.6 - 0.9 cm IVS Systolic Thickness 2.2 cm LVPW Diastolic Thickness 1.8 cm 0.6 - 1.0 / 0.6 - 0.9 cm LVPW Systolic Thickness 2.1 cm LVOT Diameter 1.9 cm LV Ejection Fraction 2D Teich 64.2 % LV Ejection Fraction MOD 4C 52.4 % LV Ejection Fraction MOD 2C 57.5 % LV Ejection Fraction 2C AL 58.3 % LA Diameter 3.2 cm RA Systolic Volume 4C AL 68.5 ml RA Systolic Volume 4C MOD 63.9 ml LA Sys Volume AL 122.8 cm cubed LA Sys Volume Index AL 40.5 cm cubed/m squared Aorta at Sinotubular Diameter 2.9 cm M-MODE LA Ao Ratio MM 1.9 AV Cusp Separation MM 1.7 cm DOPPLER AV Peak Velocity 214.0 cm/s LVOT Peak Velocity 205.0 cm/s AV Area Cont Eq vti 3.1 cm squared AV Area Cont Eq pk 2.8 cm squared MV Peak Velocity 136.0 cm/s MV Area PHT 5.7 cm squared Mitral E to A Ratio 1.2 TR Peak Velocity 143.0 cm/s TR Peak Gradient 8.2 mmHg TV Peak E Velocity 75.0 cm/s PV Peak Velocity 181.0 cm/s FINDINGS Left Ventricle Normal left ventricular size and systolic function, EF 58%. Moderate left ventricular hypertrophy. No regional wall motion abnormalities. Grade III/IV diastolic dysfunction (restrictive filling pattern), severely elevated filling pressures. Right Ventricle The right ventricle is normal in size and function. Right Atrium The right atrium is normal in size. Left Atrium Moderately increased left atrial size. Mitral Valve Thickened mitral valve. Mild mitral valve regurgitation. Aortic Valve Thickened aortic valve. Tricuspid Valve No gross abnormalities noted Pulmonic Valve Pulmonic valve not well visualized. Pericardium Normal pericardium without effusion. Aorta Normal ascending aorta dimension. IVC Inferior vena cava not visualized. CONCLUSIONS Normal left ventricular size and systolic function, EF 58%. Moderate left ventricular hypertrophy. No regional wall motion abnormalities. Grade III/IV diastolic dysfunction (restrictive filling pattern), severely elevated filling pressures. Moderately increased left atrial size. Thickened mitral valve. Mild mitral valve regurgitation. Thickened aortic valve. There is no pericardial effusion. There are no intracardiac masses. Compared to the study from 12/09/2023, there may be any significant change. Because of the differences in technical quality, exact comparison is difficult Dr Carly Mancia MD [facility] (Electronically Signed) Final Date: 26 February 2025 16:36 S
--- NOTE | 2025-02-26 17:13 | PC.NURSE ---
recieved verbal order from Dr. Chavez for gi soft cardiac diet order placed
[2025-02-26] MEDS: cetylpyridinium Lozenge 1 EACH MUCOUS MEM (19:52)
[2025-02-26 21:54] LABS: Hemoglobin 8.40 g/dL (11.27-16.99)
[2025-02-27] VITALS (53 sets, daily range): BP systolic 117–191; BP diastolic 44–107; PULSE 53–85; RESP 13–31; TEMP 36.5–36.8; O2SAT 88–100
[2025-02-27 04:53] LABS: Hematocrit 29.0 % (37-53); Hemoglobin 8.30 g/dL (11.27-16.99); Mean Corpuscular HGB Conc 28.6 g/dL (30-55); Mean Corpuscular Hemoglobin 24.9 pg (27-33); Mean Corpuscular Volume 86.8 fl (82-101); Nucleated Red Blood Cells % 0 %; Platelet Count 192 10^3/cmm (157-399); Red Blood Count 3.34 10^6/uL (3.85-5.65); White Blood Count 4.95 10^3/uL (3.29-11.43)
[2025-02-27] MEDS: pantoprazole 40 mg SDV IVP ×2 (05:16→15:08)
[2025-02-27] MEDS: FUROsemide 10 mg/mL SDV 10mL 60 MG IVP ×2 (05:17→15:15)
[2025-02-27 05:21] LABS: Anion Gap 13.9 (5-19); Blood Urea Nitrogen 23 mg/dL (8-23); Calcium 8.9 mg/dL (8.5-10.5); Carbon Dioxide 32 mmol/L (22-29); Chloride 102 mmol/L (98-107); Creatinine Clr Calc Pharmacy 77.1407; Glucose 115 mg/dL (65-115); Osmolality Calculated 303 mOsm/kg (285-295); Potassium 3.9 mmol/L (3.5-5.1); Sodium 144 mmol/L (136-145)
--- NOTE | 2025-02-27 11:24 | PC.NURSE ---
patient refused carvedilol as he reports it cause his hr to drop too low doctor notified
[2025-02-27] MEDS: cetylpyridinium Lozenge 1 EACH MUCOUS MEM (11:42)
--- NOTE | 2025-02-27 16:44 | P.PN_ITS ---
Subjective 2 Subjective: He is not normally on oxygen at home. At rest he is breathing comfortably. He is worried about what effects alcohol has been having on his health. Discussed with him to abstain from alcohol due to affecting his cardiac function, hypertension, liver, other risks. Vitals/I&O/Wt Last Vital Signs Temp 97.7 F 02/27/25 08:00 Pulse 62 02/27/25 14:00 Resp 15 02/27/25 12:30 BP 144/80 02/27/25 12:30 Pulse Ox 98 02/27/25 12:30 O2 Del Method Nasal Cannula 02/27/25 12:00 O2 Flow Rate 4 02/27/25 12:00 02/27/25 02/27/25 02/27/25 06:59 14:59 22:59 Output Total 800 / 2930 1300 / 1300 Balance -800 / -2930 -1300 / -1300 Weight last 48 hrs Weight 175.23 g Physical Exam 2 Const: COMMON NORMALS: patient oriented x3 and alert GENERAL APPEARANCE: c ooperative NUTRITIONAL APPEARANCE: obese morbidly obese O RIENTATION/CONSCIOUSNESS: Yes awake HENMT: COMMON NORMALS: oropharynx normal Neck/C-Spine: COMMON NORMALS: no JVD Resp: COMMON NORMALS: normal respiratory effort and clear to auscultation bilaterally AUSCULTATION: clear to auscultation bilaterally Cardio: COMMON NORMALS: no JVD, regular rhythm, S1 normal heart sound present, S2 normal heart sound present and No murmurs present (Cardio) RHYTHM: regular rhythm HEART SOUNDS: S1 normal heart sound present and S2 normal heart sound present GI: COMMON NORMALS: Normal to inspection, nondistended, normoactive bowel sounds present, Soft to palpation and non-tender PALPATION: Yes Soft to palpation Extremity: GENERAL: Yes edema (Severe edema superimposed on chronic lymphedema bilaterally) OTHER: Pitting edema superimposed on chronic lymphedema with chronic skin changes of bilateral shins with cornification, thickening and coarse texture of the skin with severe chronic lymphedema Neuro: COMMON NORMALS: patient oriented x3 and moves all extremities S ENSORIUM/ORIENTATION: Yes alert Data 02/27/25 04:09 02/27/25 04:09 A&P Assessment and plan 1. Acute on chronic anemia: Persistent anemia, hemoglobin 8.3, appears to have stabilized, although has not been on anticoagulation. Discussed with him holding anticoagulation with follow-up with primary provider and continued workup with surgery. Will reassess blood counts again in the morning. Reviewed platelets, normal. Continue IV PPI twice daily. Can transfer out of ICU. Underwent EGD with finding of gastritis, no signs of active bleed or obvious bleed source. Discussed with surgeon. Trial of clear liquids. Continue to withhold and discontinue NSAID. To follow-up for outpatient arrangements for colonoscopy. Repeat hemoglobin this afternoon reviewed, 8.3. Transfer out of ICU. Will reassess blood counts. 2. Acute exacerbation of CHF (congestive heart failure): Reviewed intake and output, noted and negative balance. Continue diuresis with IV Lasix. Reviewed chemistry, electrolytes, renal function so far okay. Reassess chemistry. Check magnesium. Reviewed vitals, intake and output, noted and negative balance -2.9 L. Reviewed chemistry, potassium is good. Creatinine unchanged. Magnesium checked and noted 1.8. Repeat level. Continue IV diuresis, monitor for risk of electrolyte deficiency, CHRIS on CKD. Monitor volume status. Reviewed echocardiogram, EF noted 58%, grade 3 diastolic dysfunction mild MVR. Acute on chronic diastolic congestive heart failure with severe exacerbation, newly requiring oxygen of 4 L on presentation, saturation in the 60s, with orthopnea, peripheral edema superimposed on chronic lymphedema. Congestive changes on the x-ray. Ordered and noted elevated NT proBNP. Clinical and imaging concern for fluid overload; prior echocardiogram outlined diastolic dysfunction per review; current management initiated. - Continue intravenous furosemide (Lasix) 60 mg IV every 12 hours, monitor for risk of electrolyte abnormality with IV diuresis. Monitor for risk of CHRIS. Reassess chemistry. - Obtain echocardiogram to reassess cardiac function - Monitor intake and output and chemistry panel - Wean oxygen as tolerated with diuresis 3. Atrial fibrillation with rapid ventricular response: Chronic AF with current rate/rhythm management; anticoagulation held due to bleeding risk. - Continue amiodarone 200 mg daily - Continue carvedilol 3.125 mg by mouth twice daily. He states has been cautious with carvedilol at home due to bradycardia. Discussed with him we have not increased it due to this reason. He later declined to take carvedilol dose. - Hold rivaroxaban (Xarelto) for now due to acute anemia and bleeding risk 4. Osteoarthritis: Hold meloxicam. Tylenol as needed. Plan: Chronic kidney disease with possible acute kidney injury : CKD noted; concern for acute kidney injury on presentation. - Monitor vital signs and basic metabolic panel (chemistry) - Track intake and output Hypertension : Remains uncontrolled. Increased losartan to 100 mg. With some improvement. He declined carvedilol. - Resume hydralazine 150 mg three times daily (per patient report) - Continue amlodipine 10 mg daily Lower-extremity edema with chronic venous stasis/lymphedema : Chronic severe stasis/lymphedema with superimposed edema in setting of acute CHF. - Assess for deep vein thrombosis (DVT) if feasible - Sequential compression devices (SCDs) not to be placed on lower extremities; attempt placement on an upper extremity only if possible Pressure ulcers : Pressure-related skin breakdown from prolonged wheelchair use. He is intending to make changes at home including changing to wheelchair which has been causing pressure sores on his thighs. Utilizing a recliner. - Frequent repositioning - Foam dressings - Nutritional shakes once diet is resumed - Encourage mobilization when safer; for now, bed rest as noted Obstructive sleep apnea (not using CPAP) : DAVID acknowledged; patient not using CPAP. Anticoagulation management : Anticoagulation with rivaroxaban (Xarelto) reported but not confirmed; held due to bleeding risk. - Hold anticoagulation pending evaluation of anemia/possible GI bleeding Follow-up : Inpatient management and monitoring underway; initial ICU admission noted in plan text. - Admit to ICU for monitoring given possible acute upper GI bleed and acute CHF - Monitor vitals - Wean oxygen as able with diuresis - Reassess hemoglobin levels tonight and tomorrow morning PDMP PDMP Reviewed: Not Reviewed Attestations 2 Medical Necessity Statement*: Continue admission for assessment and management of acute on chronic anemia, acute congestive heart failure and gentleman with underlying CKD, on meloxicam, on anticoagulation with Xarelto for atrial fibrillation, uncontrolled hypertension, additional comorbidities as above. and High MDM includes amount and/or complexity of data reviewed/ordered [ resulted lab(s)/test(s), ordered lab(s)/test(s) and other healthcare professional discussion] and described risk of complication, morbidity or mortality of management as documented Diagnoses Acute on chronic anemia D64.9 Acute exacerbation of CHF (congestive heart failure) I50.23 Heart failure type: systolic Atrial fibrillation with rapid ventricular response I48.91 Osteoarthritis M19.90
--- NOTE | 2025-02-27 20:37 | PC.NURSE ---
Day shift nurse told this nurse in report, and made a note, that patient refused his 1800 dose of Carvedilol due to believing it was causing his low heart rate. Shortly after this evenings administration of 150mg PO Hydralazine, patient placed call light on, and asked what the alarm in his room was alarming for, to which I explained his blood pressure was elevated. He was visibly upset and said these doctors just want to experiment on me and are going to let me lay in this room and . I need someone to bring the damn medicine I told the doctor I take. In an attempt to deescalate the situation I explained to the patient that no one wanted him to , and I had already trended his vitals for the day. His blood pressure had been trending slightly higher today, than in the previous days, but it had corrected to an appropriate value. This nurse explained we needed to allow the Hydralazine time to work, confirmed that he was not in pain, which I explained could cause his blood pressure to be elevated, he denied pain. He then went on to tell this nurse how the provider won't allow him to have his Valsartan and I educated patient that not all home medications are given in the hospital for specific reasons, but assured him that if his blood pressure did not begin to trend down I would notify the provider utilization management nurse. I educated the patient on the importance of allowing education, and asking questions, before refusing medications. I also clarified the patient did not have any pain, shortness of breath, or the onset of any new symptoms, which he also denied. He told this nurse if the doctors would just give me my medicine I usually take, I would be fine and Im pretty sure; no, I know I know more than all of these doctors. I assured the patient we could see his blood pressure readings on the monitors at the nurses station, repositioned the cuff to be sure it was appropriate, and asked the patient to allow the Hydralazine to have time to take effect. He agreed to allow it time and try to calm down.
[2025-02-27] MEDS: morphine 4 mg/mL SDV 1 mL 2 MG IVP (22:37)
--- NOTE | 2025-02-27 22:56 | ECG_ITS ---
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 Measurements Intervals [place] Rate: 85 P: 58 ND: 261 QRS: 120 QRSD: 146 T: -4 QT: 432 QTc: 514 Interpretive Statements SINUS RHYTHM WITH FIRST DEGREE AV BLOCK RIGHT AXIS DEVIATION [QRS AXIS > 100] INTRAVENTRICULAR CONDUCTION DELAY [130+ ms QRS DURATION] Compared to ECG 02/25/2025 10:21:27 Right-axis deviation now present Electronically Signed On 02-27-2025 23:28:00 CDT by Carly Mancia M.D. [email or web address]
--- NOTE | 2025-02-27 23:29 | PC.NURSE ---
Addendum entered by DAX Soto 02/28/25 01:05: Dr. Nash updated with patients troponin lab result and gave orders to recheck with AM labs on 02/28/25. Order placed. Original Note: Patient had a BM and was cleaned up. After doing so, he shortly later hit his call light and was visibly agitated stating my reji hurts and I want morphine. This nurse adminstered morphine, and while in there he said I feel like my chest is tight. Due to the significant cardiac history, and complaint of chest tightness, an EKG was obtained per protocol. EKG was give to the provider field ironworker, Dr. Nash, who was on the unit at the time. This nurse also obtained a manual blood pressure reading which was 178/92. Dr. Nash put in orders for stat troponin as well as clonidine. Clonidine was administered and labs were drawn. Patient still complaining of pain in his genitals at this time. No current complaint of chest discomfort.
[2025-02-27 23:56] LABS: Troponin T (5th) Once 49 ng/L (0-15)
[2025-02-28] VITALS (29 sets, daily range): BP systolic 140–199; BP diastolic 61–101; PULSE 69–85; RESP 15–22; TEMP 36.6–36.8; O2SAT 88–99
--- NOTE | 2025-02-28 01:32 | PC.NURSE ---
Addendum entered by DAX Soto 02/28/25 01:49: Upon entering room to administer Morphine patient asked what do I get? This nurse replied The provider gave you Morphine to which patient stated thats not going to do a damn thing cant you just give me something like anesthesia to knock me out? Patient educated on realistic expectations for managing pain and how being knocked out is not an appropriate expectation for pain management. Patient also asked if he could have another dose of clonodine as well and was updated what time he would be able to take his next dose, but it was to treat his elevated blood pressure, so if his blood pressure was under the set parameters the clonodine would not be administered. Original Note: Patient continued to complain of severe pain in the scrotum. Provider notified. Dr. Nash gave one time order of 4mg morphine IVP. Order placed. See MAR
[2025-02-28] MEDS: morphine 4 mg/mL SDV 1 mL IVP (01:41)
[2025-02-28] MEDS: pantoprazole 40 mg SDV IVP ×2 (03:33→16:01)
--- NOTE | 2025-02-28 03:54 | PC.NURSE ---
Patient refused 0400 furosemide. When attempting to administer medications patient stated if you have the drug that makes me piss I dont want it. He was also laying with his blankets covered in urine and when asked why he did not notify anyone he said its just water I spilled and I have pissed everyone off. This nurse told patient no one is upset with him for needing care, and it will further add to skin breakdown to lay in bedding that is wet. Patient was cleaned up as much as he would allow, his shirt was wet, but he has not allowed any staff to change it since his admission. New blankets replaced. Patient then asked for ice chips, tylenol, and a popsicle. Patient was given all of those items and again educated on importance of notifying staff if he needs assistance.
[2025-02-28 04:02] LABS: Hematocrit 32.3 % (37-53); Hemoglobin 9.30 g/dL (11.27-16.99); Mean Corpuscular HGB Conc 28.8 g/dL (30-55); Mean Corpuscular Hemoglobin 24.6 pg (27-33); Mean Corpuscular Volume 85.4 fl (82-101); Nucleated Red Blood Cells % 0 %; Platelet Count 207 10^3/cmm (157-399); Red Blood Count 3.78 10^6/uL (3.85-5.65); White Blood Count 6.05 10^3/uL (3.29-11.43)
[2025-02-28 04:24] LABS: Troponin T (5th) Once 51 ng/L (0-15)
[2025-02-28 04:28] LABS: Magnesium 1.9 mg/dL (1.7-2.3)
[2025-02-28 04:33] LABS: Anion Gap 17.8 (5-19); Blood Urea Nitrogen 25 mg/dL (8-23); Calcium 9.7 mg/dL (8.5-10.5); Carbon Dioxide 31 mmol/L (22-29); Chloride 100 mmol/L (98-107); Creatinine Clr Calc Pharmacy 0.1250; Glucose 129 mg/dL (65-115); Osmolality Calculated 306 mOsm/kg (285-295); Potassium 3.8 mmol/L (3.5-5.1); Sodium 145 mmol/L (136-145)
--- NOTE | 2025-02-28 08:30 | PC.NURSE ---
pt c/o pain groin and needing to void constant bladder scan done less than 15cc noted doctor here aware pt request pain medication enough to knock me out explained that pain medication would be ordered am brk served pt refused to allow nurse to check wound on posterior side , o2 weaned down at this time
[2025-02-28] MEDS: morphine 4 mg/mL SDV 1 mL 2 MG IVP ×3 (09:14→20:24)
--- NOTE | 2025-02-28 09:17 | PC.NURSE ---
pharmacy notified unable to take pyridium due to cad and renal function . morphine given instead for discomfort
--- NOTE | 2025-02-28 11:54 | PC.NURSE ---
Reading reports and noted patient to have history of alcohol use. Spoke with Dr Sosa and received order for [facility] protocol.
--- NOTE | 2025-02-28 12:53 | PC.NURSE ---
report given and transfered to room 104
--- NOTE | 2025-02-28 12:53 | PC.NURSE ---
has not voided since am doctor round informed needed urine spec
[2025-02-28] MEDS: LORazepam 1 MG/0.5 ML injection 2 MG IVP ×2 (13:06→20:26)
--- NOTE | 2025-02-28 13:22 | PC.NURSE ---
Patient received from ICU. Patient c/o pain to scrotum area. Patient medicated as ordered and documented.
--- NOTE | 2025-02-28 18:32 | P.PN_ITS ---
Subjective 2 Subjective: Overnight he has been having urinary urgency and urethral pain. Declines Menezes catheter. Vitals/I&O/Wt Last Vital Signs Temp 98.2 F 02/28/25 15:44 Pulse 70 02/28/25 15:44 Resp 20 H 02/28/25 15:44 BP 154/75 02/28/25 15:44 Pulse Ox 94 02/28/25 15:44 O2 Del Method Nasal Cannula 02/27/25 16:00 O2 Flow Rate 4 02/27/25 16:00 02/28/25 02/28/25 02/28/25 06:59 14:59 22:59 Intake Total 400 / 400 600 / 600 Output Total 800 / 4300 Balance -400 / -3900 600 / 600 Weight last 48 hrs Weight 175.23 kg Weight 175.23 g Physical Exam 2 Const: COMMON NORMALS: patient oriented x3 and alert GENERAL APPEARANCE: c ooperative NUTRITIONAL APPEARANCE: obese morbidly obese O RIENTATION/CONSCIOUSNESS: Yes awake HENMT: COMMON NORMALS: oropharynx normal Neck/C-Spine: COMMON NORMALS: no JVD Resp: COMMON NORMALS: normal respiratory effort and clear to auscultation bilaterally AUSCULTATION: clear to auscultation bilaterally Cardio: COMMON NORMALS: no JVD, regular rhythm, S1 normal heart sound present, S2 normal heart sound present and No murmurs present (Cardio) RHYTHM: regular rhythm HEART SOUNDS: S1 normal heart sound present and S2 normal heart sound present GI: COMMON NORMALS: Normal to inspection, nondistended, normoactive bowel sounds present, Soft to palpation and non-tender PALPATION: Yes Soft to palpation Extremity: GENERAL: Yes edema (Severe edema superimposed on chronic lymphedema bilaterally) OTHER: Pitting edema superimposed on chronic lymphedema with chronic skin changes of bilateral shins with cornification, thickening and coarse texture of the skin with severe chronic lymphedema Neuro: COMMON NORMALS: patient oriented x3 and moves all extremities S ENSORIUM/ORIENTATION: Yes alert Data 02/28/25 03:31 02/28/25 03:31 A&P Assessment and plan 1. Acute exacerbation of CHF (congestive heart failure): Has been diuresing well. Negative balance. Weights are likely not accurate. Reviewed chemistry. Renal function has been allowing for diuresis. Attempt to wean down oxygen. With attempted decrease in oxygen flow down to 1 l desaturated to 89%. Reviewed intake and output, noted and negative balance. Continue diuresis with IV Lasix. Reviewed chemistry, electrolytes, renal function so far okay. Reassess chemistry. Check magnesium. Reviewed vitals, intake and output, noted and negative balance. Magnesium checked and noted 1.9. Continue IV diuresis, monitor for risk of electrolyte deficiency, CHRIS on CKD. Monitor volume status. Discussed with nursing, machine adjuster leader case trim. Transferring to CSU. Echocardiogram, EF noted 58%, grade 3 diastolic dysfunction mild MVR. Acute on chronic diastolic congestive heart failure with severe exacerbation, newly requiring oxygen of 4 L on presentation, saturation in the 60s, with orthopnea, peripheral edema superimposed on chronic lymphedema. Congestive changes on the x-ray. Ordered and noted elevated NT proBNP. Clinical and imaging concern for fluid overload; prior echocardiogram outlined diastolic dysfunction per review; current management initiated. - Continue intravenous furosemide (Lasix) 60 mg IV every 12 hours, monitor for risk of electrolyte abnormality with IV diuresis. Monitor for risk of CHRIS. Reassess chemistry. - Obtain echocardiogram to reassess cardiac function - Monitor intake and output and chemistry panel - Wean oxygen as tolerated with diuresis 2. Acute on chronic anemia: Reviewed hemoglobin: Up to 9.3 today. Platelets are normal. Repeat CBC. Hemoglobin appears to have stabilized, although has not been on anticoagulation. Discussed with him holding anticoagulation with follow-up with primary provider and continued workup with surgery. Continue IV PPI twice daily. Can transfer out of ICU. Underwent EGD with finding of gastritis, no signs of active bleed or obvious bleed source. Discussed with surgeon. Trial of clear liquids. Continue to withhold and discontinue NSAID. To follow-up for outpatient arrangements for colonoscopy. Repeat hemoglobin this afternoon reviewed, 8.3. Transfer out of ICU. Will reassess blood counts. 3. Urinary urgency: Overnight with urinary urgency and urethral pain. Feels like he has to urinate. Bladder scan obtained, only about 15 cc noted. UA is requested. Pyridium was considered but not ordered due to risk of kidney dysfunction. 4. Atrial fibrillation with rapid ventricular response: Chronic AF with current rate/rhythm management; anticoagulation held due to bleeding risk. - Continue amiodarone 200 mg daily - Continue carvedilol 3.125 mg by mouth twice daily. He states has been cautious with carvedilol at home due to bradycardia. Discussed with him we have not increased it due to this reason. He later declined to take carvedilol dose. Discussed with him to resume due to hypertension. - Hold rivaroxaban (Xarelto) for now due to acute anemia and bleeding risk 5. Osteoarthritis: Hold meloxicam. Tylenol as needed. Plan: Chronic kidney disease with possible acute kidney injury : CKD noted; concern for acute kidney injury on presentation. - Monitor vital signs and basic metabolic panel (chemistry) - Track intake and output Hypertension : Remains uncontrolled. Increased losartan to 100 mg. With some improvement. He declined carvedilol. - Resume hydralazine 150 mg three times daily (per patient report) - Continue amlodipine 10 mg daily Lower-extremity edema with chronic venous stasis/lymphedema : Chronic severe stasis/lymphedema with superimposed edema in setting of acute CHF. - Assess for deep vein thrombosis (DVT) if feasible - Sequential compression devices (SCDs) not to be placed on lower extremities; attempt placement on an upper extremity only if possible Pressure ulcers : Pressure-related skin breakdown from prolonged wheelchair use. He is intending to make changes at home including changing to wheelchair which has been causing pressure sores on his thighs. Utilizing a recliner. - Frequent repositioning - Foam dressings - Nutritional shakes once diet is resumed - Encourage mobilization when safer; for now, bed rest as noted Obstructive sleep apnea (not using CPAP) : DAVID acknowledged; patient not using CPAP. Anticoagulation management : Anticoagulation with rivaroxaban (Xarelto) reported but not confirmed; held due to bleeding risk. - Hold anticoagulation pending evaluation of anemia/possible GI bleeding Follow-up : Inpatient management and monitoring underway; initial ICU admission noted in plan text. - Admit to ICU for monitoring given possible acute upper GI bleed and acute CHF - Monitor vitals - Wean oxygen as able with diuresis - Reassess hemoglobin levels tonight and tomorrow morning PDMP PDMP Reviewed: Not Reviewed Attestations 2 Medical Necessity Statement*: Continue admission for assessment and management of acute on chronic anemia, acute congestive heart failure and gentleman with underlying CKD, on meloxicam, on anticoagulation with Xarelto for atrial fibrillation, uncontrolled hypertension, additional comorbidities as above. and High MDM includes amount and/or complexity of data reviewed/ordered [ resulted lab(s)/test(s), ordered lab(s)/test(s) and other healthcare professional discussion] and described risk of complication, morbidity or mortality of management as documented Diagnoses Acute exacerbation of CHF (congestive heart failure) I50.23 Heart failure type: systolic Acute on chronic anemia D64.9 Urinary urgency R39.15 Atrial fibrillation with rapid ventricular response I48.91 Osteoarthritis M19.90
[2025-02-28] MEDS: iron sucrose 200 MG in sodium chloride 0.9% (100 ml) 100 ML 220 MG IV (20:26)
[2025-02-28 21:11] LABS: Glucose Urine UA Negative (Normal); Nitrate Urine Negative (Negative); Specific Gravity, Urine 1.017 (1.005-1.030)
[2025-02-28 21:16] LABS: Add Urine Microscopic? YES
[2025-03-01] VITALS (13 sets, daily range): BP systolic 118–157; BP diastolic 64–85; PULSE 66–75; RESP 14–24; TEMP 36.8–37.2; O2SAT 88–97
[2025-03-01] MEDS: morphine 4 mg/mL SDV 1 mL 2 MG IVP ×4 (02:45→19:55)
[2025-03-01 04:06] LABS: Hematocrit 32.4 % (37-53); Hemoglobin 9.30 g/dL (11.27-16.99); Mean Corpuscular HGB Conc 28.7 g/dL (30-55); Mean Corpuscular Hemoglobin 25.0 pg (27-33); Mean Corpuscular Volume 87.1 fl (82-101); Nucleated Red Blood Cells % 0 %; Platelet Count 194 10^3/cmm (157-399); Red Blood Count 3.72 10^6/uL (3.85-5.65); White Blood Count 8.19 10^3/uL (3.29-11.43)
[2025-03-01] MEDS: pantoprazole 40 mg SDV IVP ×2 (04:16→14:32)
[2025-03-01 04:27] LABS: Anion Gap 16.2 (5-19); Blood Urea Nitrogen 28 mg/dL (8-23); Calcium 9.7 mg/dL (8.5-10.5); Carbon Dioxide 31 mmol/L (22-29); Chloride 99 mmol/L (98-107); Creatinine Clr Calc Pharmacy 69.7478; Glucose 119 mg/dL (65-115); Osmolality Calculated 301 mOsm/kg (285-295); Potassium 4.2 mmol/L (3.5-5.1); Sodium 142 mmol/L (136-145)
--- NOTE | 2025-03-01 12:08 | PC.SOCIAL ---
IMM Updated Updated pt on IMM. No questions voiced. Provided pt a copy. Initialed, dated, & timed copy in chart.
--- NOTE | 2025-03-01 14:46 | P.PN_ITS ---
Subjective 2 Subjective: Patient is refusing IV diuresis today. States that he feels he is too dehydrated. Medications: Reviewed: Yes Vitals/I&O/Wt Last Vital Signs Temp 98.4 F 03/01/25 11:30 Pulse 72 03/01/25 11:30 Resp 20 H 03/01/25 14:30 BP 129/78 03/01/25 11:30 Pulse Ox 97 03/01/25 11:30 O2 Del Method Nasal Cannula 03/01/25 11:30 O2 Flow Rate 4 02/27/25 16:00 02/28/25 03/01/25 03/01/25 22:59 06:59 14:59 Intake Total 470 / 1070 240 / 1310 Balance 470 / 1070 240 / 1310 Weight last 48 hrs Weight 183.478 kg Weight 175.23 kg Physical Exam 2 Narrative: General: No acute distress, AO x3 HEENT: PERRLA, pupils bilaterally equal and reactive, pallors not present Chest: Normal vesicular breath sounds, no added sounds, equal good air entry bilaterally CVS: S1-S2 regular, no murmurs, no tachycardia, no gallops, no rubs Abdomen: Soft, nontender, no organomegaly, bowel sounds present Neuro: No focal deficits, no facial deformity, AO x3, power 5/5 in all limbs Data 03/01/25 03:36 03/01/25 03:36 A&P Assessment and plan 1. Acute exacerbation of CHF (congestive heart failure): Has been diuresing well. Negative balance. Weights are likely not accurate. Reviewed chemistry. Renal function has been allowing for diuresis. Attempt to wean down oxygen. With attempted decrease in oxygen flow down to 1 l desaturated to 89%. Reviewed intake and output, noted and negative balance. Continue diuresis with IV Lasix. Reviewed chemistry, electrolytes, renal function so far okay. Reassess chemistry. Check magnesium. Reviewed vitals, intake and output, noted and negative balance. Magnesium checked and noted 1.9. Continue IV diuresis, monitor for risk of electrolyte deficiency, CHRIS on CKD. Monitor volume status. Discussed with nursing, case technician. Transferring to CSU. Echocardiogram, EF noted 58%, grade 3 diastolic dysfunction mild MVR. Acute on chronic diastolic congestive heart failure with severe exacerbation, newly requiring oxygen of 4 L on presentation, saturation in the 60s, with orthopnea, peripheral edema superimposed on chronic lymphedema. Congestive changes on the x-ray. Ordered and noted elevated NT proBNP. Clinical and imaging concern for fluid overload; prior echocardiogram outlined diastolic dysfunction per review; current management initiated. - Continue intravenous furosemide (Lasix) 60 mg IV every 12 hours, monitor for risk of electrolyte abnormality with IV diuresis. Monitor for risk of CHRIS. Reassess chemistry. - Obtain echocardiogram to reassess cardiac function - Monitor intake and output and chemistry panel - Wean oxygen as tolerated with diuresis 2. Acute on chronic anemia: Reviewed hemoglobin: Up to 9.3 today. Platelets are normal. Repeat CBC. Hemoglobin appears to have stabilized, although has not been on anticoagulation. Discussed with him holding anticoagulation with follow-up with primary provider and continued workup with surgery. Continue IV PPI twice daily. Can transfer out of ICU. Underwent EGD with finding of gastritis, no signs of active bleed or obvious bleed source. Discussed with surgeon. Trial of clear liquids. Continue to withhold and discontinue NSAID. To follow-up for outpatient arrangements for colonoscopy. Repeat hemoglobin this afternoon reviewed, 8.3. Transfer out of ICU. Will reassess blood counts. 3. Urinary urgency: Overnight with urinary urgency and urethral pain. Feels like he has to urinate. Bladder scan obtained, only about 15 cc noted. UA is requested. Pyridium was considered but not ordered due to risk of kidney dysfunction. 4. Atrial fibrillation with rapid ventricular response: Chronic AF with current rate/rhythm management; anticoagulation held due to bleeding risk. - Continue amiodarone 200 mg daily - Continue carvedilol 3.125 mg by mouth twice daily. He states has been cautious with carvedilol at home due to bradycardia. Discussed with him we have not increased it due to this reason. He later declined to take carvedilol dose. Discussed with him to resume due to hypertension. - Hold rivaroxaban (Xarelto) for now due to acute anemia and bleeding risk 5. Osteoarthritis: Hold meloxicam. Tylenol as needed. Plan: Chronic kidney disease with possible acute kidney injury : CKD noted; concern for acute kidney injury on presentation. - Monitor vital signs and basic metabolic panel (chemistry) - Track intake and output Hypertension : Remains uncontrolled. Increased losartan to 100 mg. With some improvement. He declined carvedilol. - Resume hydralazine 150 mg three times daily (per patient report) - Continue amlodipine 10 mg daily Lower-extremity edema with chronic venous stasis/lymphedema : Chronic severe stasis/lymphedema with superimposed edema in setting of acute CHF. - Assess for deep vein thrombosis (DVT) if feasible - Sequential compression devices (SCDs) not to be placed on lower extremities; attempt placement on an upper extremity only if possible Pressure ulcers : Pressure-related skin breakdown from prolonged wheelchair use. He is intending to make changes at home including changing to wheelchair which has been causing pressure sores on his thighs. Utilizing a recliner. - Frequent repositioning - Foam dressings - Nutritional shakes once diet is resumed - Encourage mobilization when safer; for now, bed rest as noted Obstructive sleep apnea (not using CPAP) : DAVID acknowledged; patient not using CPAP. Anticoagulation management : Anticoagulation with rivaroxaban (Xarelto) reported but not confirmed; held due to bleeding risk. - Hold anticoagulation pending evaluation of anemia/possible GI bleeding Follow-up : Inpatient management and monitoring underway; initial ICU admission noted in plan text. - Admit to ICU for monitoring given possible acute upper GI bleed and acute CHF - Monitor vitals - Wean oxygen as able with diuresis - Reassess hemoglobin levels tonight and tomorrow morning March 01, 2025 66-year-old man with a history of CHF, A-fib, prediabetes, sleep apnea, CKD, remote history of alcohol use, peripheral vascular disease who presented to the ED with shortness of breath on February 25, 2025. He was noted to be hypoxic and had a new oxygen requirement. He ambulates with a wheelchair. He was admitted for acute on chronic anemia with a hemoglobin of 6.4. He received blood transfusion and underwent EGD on February 26 which showed gastritis without any active bleeding. He has been maintained on a high-dose PPI. For acute on chronic diastolic CHF exacerbation, he has been on Lasix 60 mg IV every 12 hours. He is net -6 L during course of the admission. His creatinine has trended up to 1.7 from 1.5 upon admission, it appears his previous baseline has been between 1.3-1.7 over the past year. Currently at the time of this exam patient is on 1 L/min supplemental O2. Will plan to transition patient to oral diuresis today. He has chronic lower extremity lymphedema and that is unlikely to change significantly with diuresis. PDMP PDMP Reviewed: Not Reviewed Attestations 2 Medical Necessity Statement*: Transition IV to oral diuresis today. Anticipate discharge in the upcoming 24 to 48 hours if continues to clinically improve. Coding Level of Care Code Acute Code for Chg Fwd Diagnoses Acute exacerbation of CHF (congestive heart failure) I50.23 Heart failure type: systolic Acute on chronic anemia D64.9 Urinary urgency R39.15 Atrial fibrillation with rapid ventricular response I48.91 Osteoarthritis M19.90
[2025-03-01] MEDS: iron sucrose 200 MG in sodium chloride 0.9% (100 ml) 100 ML 220 MG IV (19:55)
[2025-03-02] VITALS (12 sets, daily range): BP systolic 117–145; BP diastolic 55–71; PULSE 61–70; RESP 12–22; TEMP 36.8–37.2; O2SAT 88–96; BMI 56.5
[2025-03-02] MEDS: morphine 4 mg/mL SDV 1 mL 2 MG IVP ×4 (02:16→20:08)
[2025-03-02] MEDS: pantoprazole 40 mg SDV IVP ×2 (04:45→15:04)
[2025-03-02 11:42] LABS: Hematocrit 30.4 % (37-53); Hemoglobin 8.50 g/dL (11.27-16.99); Mean Corpuscular HGB Conc 28.0 g/dL (30-55); Mean Corpuscular Hemoglobin 24.9 pg (27-33); Mean Corpuscular Volume 88.9 fl (82-101); Nucleated Red Blood Cells % 0 %; Platelet Count 157 10^3/cmm (157-399); Red Blood Count 3.42 10^6/uL (3.85-5.65); White Blood Count 7.36 10^3/uL (3.29-11.43)
[2025-03-02 12:06] LABS: Alanine Aminotransferase 7 U/L (0-41); Albumin Level 3.4 g/dL (3.5-5.2); Alkaline Phosphatase 63 U/L (40-130); Anion Gap 17.0 (5-19); Aspartate Amino Transferase 16 U/L (0-40); Blood Urea Nitrogen 34 mg/dL (8-23); Calcium 9.4 mg/dL (8.5-10.5); Carbon Dioxide 29 mmol/L (22-29); Chloride 98 mmol/L (98-107); Creatinine Clr Calc Pharmacy 62.5109; Globulin 2.8 g/dL (1.3-4.6); Glucose 120 mg/dL (65-115); Osmolality Calculated 299 mOsm/kg (285-295); Potassium 4.0 mmol/L (3.5-5.1); Sodium 140 mmol/L (136-145); Total Protein 6.2 g/dL (6.6-8.7)
--- NOTE | 2025-03-02 15:48 | P.PN_ITS ---
Subjective 2 Subjective: No new complaints today. Patient states he is feeling slightly better today but disappointed that he is still needing to be on oxygen.cr up to 1.9 today Medications: Reviewed: Yes Vitals/I&O/Wt Last Vital Signs Temp 98.2 F 03/02/25 07:28 Pulse 61 03/02/25 15:33 Resp 20 H 03/02/25 15:33 BP 117/55 03/02/25 15:33 Pulse Ox 95 03/02/25 15:33 O2 Del Method Nasal Cannula 03/02/25 08:05 O2 Flow Rate 2 03/02/25 10:10 Weight last 48 hrs Weight 183.977 kg Weight 183.478 kg Physical Exam 2 Narrative: General: No acute distress, AO x3 HEENT: PERRLA, pupils bilaterally equal and reactive, pallors not present Chest: Normal vesicular breath sounds, no added sounds, equal good air entry bilaterally CVS: S1-S2 regular, no murmurs, no tachycardia, no gallops, no rubs Abdomen: Soft, nontender, no organomegaly, bowel sounds present Neuro: no focal gross deficits Ext: gross lymphedema B/L with stasis dermatitis Data 03/02/25 11:10 03/02/25 11:10 A&P Assessment and plan 1. Acute exacerbation of CHF (congestive heart failure): Has been diuresing well. Negative balance. Weights are likely not accurate. Reviewed chemistry. Renal function has been allowing for diuresis. Attempt to wean down oxygen. With attempted decrease in oxygen flow down to 1 l desaturated to 89%. Reviewed intake and output, noted and negative balance. Continue diuresis with IV Lasix. Reviewed chemistry, electrolytes, renal function so far okay. Reassess chemistry. Check magnesium. Reviewed vitals, intake and output, noted and negative balance. Magnesium checked and noted 1.9. Continue IV diuresis, monitor for risk of electrolyte deficiency, CHRIS on CKD. Monitor volume status. Discussed with nursing, correctional casework specialist. Transferring to CSU. Echocardiogram, EF noted 58%, grade 3 diastolic dysfunction mild MVR. Acute on chronic diastolic congestive heart failure with severe exacerbation, newly requiring oxygen of 4 L on presentation, saturation in the 60s, with orthopnea, peripheral edema superimposed on chronic lymphedema. Congestive changes on the x-ray. Ordered and noted elevated NT proBNP. Clinical and imaging concern for fluid overload; prior echocardiogram outlined diastolic dysfunction per review; current management initiated. - Continue intravenous furosemide (Lasix) 60 mg IV every 12 hours, monitor for risk of electrolyte abnormality with IV diuresis. Monitor for risk of CHRIS. Reassess chemistry. - Obtain echocardiogram to reassess cardiac function - Monitor intake and output and chemistry panel - Wean oxygen as tolerated with diuresis 2. Acute on chronic anemia: Reviewed hemoglobin: Up to 9.3 today. Platelets are normal. Repeat CBC. Hemoglobin appears to have stabilized, although has not been on anticoagulation. Discussed with him holding anticoagulation with follow-up with primary provider and continued workup with surgery. Continue IV PPI twice daily. Can transfer out of ICU. Underwent EGD with finding of gastritis, no signs of active bleed or obvious bleed source. Discussed with surgeon. Trial of clear liquids. Continue to withhold and discontinue NSAID. To follow-up for outpatient arrangements for colonoscopy. Repeat hemoglobin this afternoon reviewed, 8.3. Transfer out of ICU. Will reassess blood counts. 3. Urinary urgency: Overnight with urinary urgency and urethral pain. Feels like he has to urinate. Bladder scan obtained, only about 15 cc noted. UA is requested. Pyridium was considered but not ordered due to risk of kidney dysfunction. 4. Atrial fibrillation with rapid ventricular response: Chronic AF with current rate/rhythm management; anticoagulation held due to bleeding risk. - Continue amiodarone 200 mg daily - Continue carvedilol 3.125 mg by mouth twice daily. He states has been cautious with carvedilol at home due to bradycardia. Discussed with him we have not increased it due to this reason. He later declined to take carvedilol dose. Discussed with him to resume due to hypertension. - Hold rivaroxaban (Xarelto) for now due to acute anemia and bleeding risk 5. Osteoarthritis: Hold meloxicam. Tylenol as needed. Plan: Chronic kidney disease with possible acute kidney injury : CKD noted; concern for acute kidney injury on presentation. - Monitor vital signs and basic metabolic panel (chemistry) - Track intake and output Hypertension : Remains uncontrolled. Increased losartan to 100 mg. With some improvement. He declined carvedilol. - Resume hydralazine 150 mg three times daily (per patient report) - Continue amlodipine 10 mg daily Lower-extremity edema with chronic venous stasis/lymphedema : Chronic severe stasis/lymphedema with superimposed edema in setting of acute CHF. - Assess for deep vein thrombosis (DVT) if feasible - Sequential compression devices (SCDs) not to be placed on lower extremities; attempt placement on an upper extremity only if possible Pressure ulcers : Pressure-related skin breakdown from prolonged wheelchair use. He is intending to make changes at home including changing to wheelchair which has been causing pressure sores on his thighs. Utilizing a recliner. - Frequent repositioning - Foam dressings - Nutritional shakes once diet is resumed - Encourage mobilization when safer; for now, bed rest as noted Obstructive sleep apnea (not using CPAP) : DAVID acknowledged; patient not using CPAP. Anticoagulation management : Anticoagulation with rivaroxaban (Xarelto) reported but not confirmed; held due to bleeding risk. - Hold anticoagulation pending evaluation of anemia/possible GI bleeding Follow-up : Inpatient management and monitoring underway; initial ICU admission noted in plan text. - Admit to ICU for monitoring given possible acute upper GI bleed and acute CHF - Monitor vitals - Wean oxygen as able with diuresis - Reassess hemoglobin levels tonight and tomorrow morning March 01, 2025 66-year-old man with a history of CHF, A-fib, prediabetes, sleep apnea, CKD, remote history of alcohol use, peripheral vascular disease who presented to the ED with shortness of breath on February 25, 2025. He was noted to be hypoxic and had a new oxygen requirement. He ambulates with a wheelchair. He was admitted for acute on chronic anemia with a hemoglobin of 6.4. He received blood transfusion and underwent EGD on February 26 which showed gastritis without any active bleeding. He has been maintained on a high-dose PPI. For acute on chronic diastolic CHF exacerbation, he has been on Lasix 60 mg IV every 12 hours. He is net -6 L during course of the admission. His creatinine has trended up to 1.7 from 1.5 upon admission, it appears his previous baseline has been between 1.3-1.7 over the past year. Currently at the time of this exam patient is on 1 L/min supplemental O2. Will plan to transition patient to oral diuresis today. He has chronic lower extremity lymphedema and that is unlikely to change significantly with diuresis. March 02, 2025 cr up to 1.9 today, clinically appears to be euvolemic, hold lasix today. Recheck cr with am labs. Anticipate discharge in the upcoming 24 hrs of cr remains stable. PDMP PDMP Reviewed: Not Reviewed Attestations 2 Medical Necessity Statement*: hold diuresis today, recheck kidney function with am labs Coding Level of Care Code Acute Code for Chg Fwd Diagnoses Acute exacerbation of CHF (congestive heart failure) I50.23 Heart failure type: systolic Acute on chronic anemia D64.9 Urinary urgency R39.15 Atrial fibrillation with rapid ventricular response I48.91 Osteoarthritis M19.90
[2025-03-02] MEDS: iron sucrose 200 MG in sodium chloride 0.9% (100 ml) 100 ML 220 MG IV (21:36)
[2025-03-03] VITALS (13 sets, daily range): BP systolic 129–149; BP diastolic 58–76; PULSE 66–71; RESP 13–22; TEMP 36.4–36.8; O2SAT 92–98
--- NOTE | 2025-03-03 00:12 | PC.NURSE ---
At shift change this nurse attempting to ask CIWA questions and was educating patient on CIWA protocol. Patient became very angry stating Now I am a fucking drunk. Explained to patient that the order was placed due to him having history of ETOH use but can ask the MD in the morning to remove it. Also explained to patient that since he had urinated all over this nurse was wanting to change the pd underneath him and check his wounds on his coccyx. Patient stated I have already had this done. It can be done tomorrow night. This nurse educated patient regarding pressur einjury development and that turning can help alleviate his butt pain . Patient is currently refusing all turns and is not wanting his wounds to be dressed.
[2025-03-03] MEDS: morphine 4 mg/mL SDV 1 mL 2 MG IVP ×4 (01:21→20:32)
[2025-03-03] MEDS: pantoprazole 40 mg SDV IVP ×2 (04:53→14:20)
[2025-03-03 04:54] LABS: Hematocrit 27.0 % (37-53); Hemoglobin 7.80 g/dL (11.27-16.99); Mean Corpuscular HGB Conc 28.9 g/dL (30-55); Mean Corpuscular Hemoglobin 25.3 pg (27-33); Mean Corpuscular Volume 87.7 fl (82-101); Nucleated Red Blood Cells % 0 %; Platelet Count 144 10^3/cmm (157-399); Red Blood Count 3.08 10^6/uL (3.85-5.65); White Blood Count 7.48 10^3/uL (3.29-11.43)
[2025-03-03 05:12] LABS: Alanine Aminotransferase 6 U/L (0-41); Albumin Level 3.3 g/dL (3.5-5.2); Alkaline Phosphatase 67 U/L (40-130); Anion Gap 15.5 (5-19); Aspartate Amino Transferase 13 U/L (0-40); Blood Urea Nitrogen 46 mg/dL (8-23); Calcium 9.0 mg/dL (8.5-10.5); Carbon Dioxide 30 mmol/L (22-29); Chloride 100 mmol/L (98-107); Globulin 2.5 g/dL (1.3-4.6); Glucose 124 mg/dL (65-115); Osmolality Calculated 305 mOsm/kg (285-295); Potassium 4.5 mmol/L (3.5-5.1); Sodium 141 mmol/L (136-145); Total Protein 5.8 g/dL (6.6-8.7)
[2025-03-03 05:13] LABS: Creatinine Clr Calc Pharmacy 56.5575
--- NOTE | 2025-03-03 13:54 | P.PN_ITS ---
Subjective 2 Subjective: Creatinine up to 2.1 today. Medications: Reviewed: Yes Vitals/I&O/Wt Last Vital Signs Temp 97.7 F 03/03/25 12:00 Pulse 71 03/03/25 12:00 Resp 16 03/03/25 12:00 BP 129/58 03/03/25 12:00 Pulse Ox 97 03/03/25 12:00 O2 Del Method Nasal Cannula 03/03/25 12:00 O2 Flow Rate 2 03/03/25 12:00 03/02/25 03/03/25 03/03/25 22:59 06:59 14:59 Intake Total 110 / 110 300 / 300 Balance 110 / 110 300 / 300 Weight last 48 hrs Weight 183.977 kg Physical Exam 2 Narrative: General: No acute distress, AO x3 HEENT: PERRLA, pupils bilaterally equal and reactive, pallors not present Chest: Normal vesicular breath sounds, no added sounds, equal good air entry bilaterally CVS: S1-S2 regular, no murmurs, no tachycardia, no gallops, no rubs Abdomen: Soft, nontender, no organomegaly, bowel sounds present Neuro: No focal deficits, no facial deformity, AO x3, power 5/5 in all limbs Data 03/03/25 02:57 03/03/25 02:57 A&P Assessment and plan 1. Acute exacerbation of CHF (congestive heart failure): Has been diuresing well. Negative balance. Weights are likely not accurate. Reviewed chemistry. Renal function has been allowing for diuresis. Attempt to wean down oxygen. With attempted decrease in oxygen flow down to 1 l desaturated to 89%. Reviewed intake and output, noted and negative balance. Continue diuresis with IV Lasix. Reviewed chemistry, electrolytes, renal function so far okay. Reassess chemistry. Check magnesium. Reviewed vitals, intake and output, noted and negative balance. Magnesium checked and noted 1.9. Continue IV diuresis, monitor for risk of electrolyte deficiency, CHRIS on CKD. Monitor volume status. Discussed with nursing, rehabilitation caseworker. Transferring to [facility]. Echocardiogram, EF noted 58%, grade 3 diastolic dysfunction mild MVR. Acute on chronic diastolic congestive heart failure with severe exacerbation, newly requiring oxygen of 4 L on presentation, saturation in the 60s, with orthopnea, peripheral edema superimposed on chronic lymphedema. Congestive changes on the x-ray. Ordered and noted elevated NT proBNP. Clinical and imaging concern for fluid overload; prior echocardiogram outlined diastolic dysfunction per review; current management initiated. - Continue intravenous furosemide (Lasix) 60 mg IV every 12 hours, monitor for risk of electrolyte abnormality with IV diuresis. Monitor for risk of CHRIS. Reassess chemistry. - Obtain echocardiogram to reassess cardiac function - Monitor intake and output and chemistry panel - Wean oxygen as tolerated with diuresis 2. Acute on chronic anemia: Reviewed hemoglobin: Up to 9.3 today. Platelets are normal. Repeat CBC. Hemoglobin appears to have stabilized, although has not been on anticoagulation. Discussed with him holding anticoagulation with follow-up with primary provider and continued workup with surgery. Continue IV PPI twice daily. Can transfer out of ICU. Underwent EGD with finding of gastritis, no signs of active bleed or obvious bleed source. Discussed with surgeon. Trial of clear liquids. Continue to withhold and discontinue NSAID. To follow-up for outpatient arrangements for colonoscopy. Repeat hemoglobin this afternoon reviewed, 8.3. Transfer out of ICU. Will reassess blood counts. 3. Urinary urgency: Overnight with urinary urgency and urethral pain. Feels like he has to urinate. Bladder scan obtained, only about 15 cc noted. UA is requested. Pyridium was considered but not ordered due to risk of kidney dysfunction. 4. Atrial fibrillation with rapid ventricular response: Chronic AF with current rate/rhythm management; anticoagulation held due to bleeding risk. - Continue amiodarone 200 mg daily - Continue carvedilol 3.125 mg by mouth twice daily. He states has been cautious with carvedilol at home due to bradycardia. Discussed with him we have not increased it due to this reason. He later declined to take carvedilol dose. Discussed with him to resume due to hypertension. - Hold rivaroxaban (Xarelto) for now due to acute anemia and bleeding risk 5. Osteoarthritis: Hold meloxicam. Tylenol as needed. Plan: Chronic kidney disease with possible acute kidney injury : CKD noted; concern for acute kidney injury on presentation. - Monitor vital signs and basic metabolic panel (chemistry) - Track intake and output Hypertension : Remains uncontrolled. Increased losartan to 100 mg. With some improvement. He declined carvedilol. - Resume hydralazine 150 mg three times daily (per patient report) - Continue amlodipine 10 mg daily Lower-extremity edema with chronic venous stasis/lymphedema : Chronic severe stasis/lymphedema with superimposed edema in setting of acute CHF. - Assess for deep vein thrombosis (DVT) if feasible - Sequential compression devices (SCDs) not to be placed on lower extremities; attempt placement on an upper extremity only if possible Pressure ulcers : Pressure-related skin breakdown from prolonged wheelchair use. He is intending to make changes at home including changing to wheelchair which has been causing pressure sores on his thighs. Utilizing a recliner. - Frequent repositioning - Foam dressings - Nutritional shakes once diet is resumed - Encourage mobilization when safer; for now, bed rest as noted Obstructive sleep apnea (not using CPAP) : DAVID acknowledged; patient not using CPAP. Anticoagulation management : Anticoagulation with rivaroxaban (Xarelto) reported but not confirmed; held due to bleeding risk. - Hold anticoagulation pending evaluation of anemia/possible GI bleeding Follow-up : Inpatient management and monitoring underway; initial ICU admission noted in plan text. - Admit to ICU for monitoring given possible acute upper GI bleed and acute CHF - Monitor vitals - Wean oxygen as able with diuresis - Reassess hemoglobin levels tonight and tomorrow morning March 01, 2025 66-year-old man with a history of CHF, A-fib, prediabetes, sleep apnea, CKD, remote history of alcohol use, peripheral vascular disease who presented to the ED with shortness of breath on February 25, 2025. He was noted to be hypoxic and had a new oxygen requirement. He ambulates with a wheelchair. He was admitted for acute on chronic anemia with a hemoglobin of 6.4. He received blood transfusion and underwent EGD on February 26 which showed gastritis without any active bleeding. He has been maintained on a high-dose PPI. For acute on chronic diastolic CHF exacerbation, he has been on Lasix 60 mg IV every 12 hours. He is net -6 L during course of the admission. His creatinine has trended up to 1.7 from 1.5 upon admission, it appears his previous baseline has been between 1.3-1.7 over the past year. Currently at the time of this exam patient is on 1 L/min supplemental O2. Will plan to transition patient to oral diuresis today. He has chronic lower extremity lymphedema and that is unlikely to change significantly with diuresis. March 02, 2025 cr up to 1.9 today, clinically appears to be euvolemic, hold lasix today. Recheck cr with am labs. Anticipate discharge in the upcoming 24 hrs of cr remains stable. March 03, 2025 Creatinine continues to trend up to 2.1 today. Will continue to hold Lasix. Last dose was administered on March 02 at 8 AM. Clinically appearing to be euvolemic. Output charting has been difficult given that patient is currently incontinent and exclusively urinating in the diaper. Anticipate kidney function to improve with holding diuresis. Holding off on IV fluids for today. Chronic lower extremity lymphedema is overall unchanged. Supplemental O2 at 2 L/min. Hold losartan and scheduled potassium today. PDMP PDMP Reviewed: Not Reviewed Attestations 2 Medical Necessity Statement*: Uptrending creatinine Coding Level of Care Code Acute Code for Chg Fwd Diagnoses Acute exacerbation of CHF (congestive heart failure) I50.23 Heart failure type: systolic Acute on chronic anemia D64.9 Urinary urgency R39.15 Atrial fibrillation with rapid ventricular response I48.91 Osteoarthritis M19.90
[2025-03-03] MEDS: iron sucrose 200 MG in sodium chloride 0.9% (100 ml) 100 ML 220 MG IV (20:32)
[2025-03-04 01:37] VITALS: RESP 20
[2025-03-04] MEDS: morphine 4 mg/mL SDV 1 mL 2 MG IVP ×2 (01:37→08:50)
[2025-03-04 04:23] VITALS: BP 116/52; PULSE 69; RESP 16; O2SAT 96
[2025-03-04] MEDS: pantoprazole 40 mg SDV IVP (04:36)
--- NOTE | 2025-03-04 04:43 | PC.NURSE ---
Bed weight is inaccurate at this time. Could not get accurate weight.
[2025-03-04 04:57] LABS: Hematocrit 27.7 % (37-53); Hemoglobin 8.00 g/dL (11.27-16.99); Mean Corpuscular HGB Conc 28.9 g/dL (30-55); Mean Corpuscular Hemoglobin 25.3 pg (27-33); Mean Corpuscular Volume 87.7 fl (82-101); Nucleated Red Blood Cells % 0 %; Platelet Count 182 10^3/cmm (157-399); Red Blood Count 3.16 10^6/uL (3.85-5.65); White Blood Count 7.57 10^3/uL (3.29-11.43)
[2025-03-04 05:48] LABS: Alanine Aminotransferase 6 U/L (0-41); Albumin Level 3.4 g/dL (3.5-5.2); Alkaline Phosphatase 52 U/L (40-130); Anion Gap 15.3 (5-19); Aspartate Amino Transferase 12 U/L (0-40); Blood Urea Nitrogen 49 mg/dL (8-23); Calcium 9.4 mg/dL (8.5-10.5); Carbon Dioxide 28 mmol/L (22-29); Chloride 98 mmol/L (98-107); Globulin 2.9 g/dL (1.3-4.6); Glucose 116 mg/dL (65-115); Osmolality Calculated 298 mOsm/kg (285-295); Potassium 4.3 mmol/L (3.5-5.1); Sodium 137 mmol/L (136-145); Total Protein 6.3 g/dL (6.6-8.7)
[2025-03-04 05:50] LABS: Creatinine Clr Calc Pharmacy 62.5109
[2025-03-04 07:04] VITALS: BP 134/69; PULSE 69; RESP 18; TEMP 36.9; O2SAT 96
[2025-03-04 08:50] VITALS: RESP 22; O2SAT 96
--- NOTE | 2025-03-04 10:24 | PM.DCS ---
Discharge Providers Date of Admission: 02/25/25 12:26 Date of Discharge: March 04, 2025 Attending Provider at Admission: Garrett Sosa Attending Provider at Discharge: Elsa Harrison MD Primary Care Provider: Brent Samuel MD Diagnoses at Discharge Discharge Diagnosis 1. Acute exacerbation of CHF (congestive heart failure): 2. Acute on chronic anemia: 3. Urinary urgency: 4. Atrial fibrillation with rapid ventricular response: 5. Osteoarthritis: Reason for Visit Reason for Visit: SOB Hospital Course Hospital Course 66-year-old man with a history of CHF, A-fib, prediabetes, sleep apnea, CKD, remote history of alcohol use, peripheral vascular disease who presented to the ED with shortness of breath on February 25, 2025. He ambulates with a wheelchair and is house bound, has not left house in over a year. 1. Acute exacerbation of CHF (congestive heart failure) with preserved EF. Severe exacerbation - hypoxic on admission and had a new oxygen requirement. - started on Lasix 60 mg IV every 12 hours. He is net > -6 L during course of the admission. - lasix now at 40 mg PO BID. - Congestive changes on the x-ray. - elevated NT proBNP. - prior echocardiogram Echocardiogram, EF noted 58%, grade 3 diastolic dysfunction mild MVR, EF normal. - Wean oxygen as tolerated with diuresis, discharge planning with new O2 requirement 2. Acute on chronic anemia: - stable at 8.0 currently from 6.4 on admission. - received blood transfusion and underwent EGD on February 26 which showed gastritis without any active bleeding. - cont. PPI 40mg BID - Continue to withhold and discontinue NSAID. - To follow-up for outpatient arrangements for colonoscopy. - complete 5 bags of IV iron today. - he will need follow up as outpatient for iron levels and monitoring. 3. Urinary urgency: CHRIS on CKD IIIa - improved - baseline has been between 1.3-1.7 over the past year. Has been diuresing well. 4. Atrial fibrillation with rapid ventricular response: - Chronic AF with current rate/rhythm management; anticoagulation held due to bleeding risk. - Continue amiodarone 200 mg daily - Continue carvedilol 3.125 mg by mouth twice daily. He states has been cautious with carvedilol at home due to bradycardia. Discussed with him we have not increased it due to this reason. He later declined to take carvedilol dose. Discussed with him to resume due to hypertension. - Hold rivaroxaban (Xarelto) for now due to acute anemia and bleeding risk - follow up outpatient for ongoing recommendations. 5. Osteoarthritis: Hold meloxicam. Tylenol as needed. peripheral edema superimposed on chronic lymphedema. - cont. lasix - elevation, compression as tolerated. Hypertension : Remains uncontrolled. - Increased losartan to 100 mg. With some improvement. He declined carvedilol. - Resume hydralazine 150 mg three times daily (per patient report) - Continue amlodipine 10 mg daily Lower-extremity edema with chronic venous stasis/lymphedema : Chronic severe stasis/lymphedema with superimposed edema in setting of acute CHF. - no deep vein thrombosis (DVT) on dopplers. - Sequential compression devices (SCDs) not to be placed on lower extremities; attempt placement on an upper extremity only if possible Pressure ulcers : Pressure-related skin breakdown from prolonged wheelchair use. He is intending to make changes at home including changing to wheelchair which has been causing pressure sores on his thighs. Utilizing a recliner. - Frequent repositioning - Foam dressings - Nutritional shakes - Encourage mobilization when safer; for now, bed rest as noted Obstructive sleep apnea (not using CPAP) - DAVID acknowledged; patient not using CPAP. Disposition - discharge planning for today. Unable to order home health as his insurance doesn't cover available services - complete planned 5 bags of IV iron prior to discharge - he will need close follow up as outpatient for iron levels and ongoing wound care of LE, however he has not followed up with PCP for over a year and states he does not want to follow up. He is house bound currently, has ambulance take him to appointments. Refusing to go to facility. Insurance not able to cover home health currently Physical Exam Narrative: General: No acute distress, AO x3 HEENT: PERRLA Chest: Clear to auscultation bilaterally CVS: S1-S2 regular, no murmurs, gallops, nor rubs Abdomen: Soft, nontender, protuberant Neuro: No focal deficits, no facial deformity, AO x3, power 5/5 in all limbs Extremities: BL LE edema with advanced changes of venous stasis. Discharge Data Studies Completed and Pending Completed Studies During Hospitalization Category Date Time Status XR chest 1V portable [id number] Stat Exams 02/25/25 10:13 [place] [id number] Routine Ultrasound 02/25/25 15:22 Completed CV. echo complete* [id number] Routine Ultrasound 02/26/25 15:22 Completed Pending at discharge Category Date Time Status Immunochemical Fecal OCB Stat Lab 02/25/25 11:36 Uncollected Radiology Impressions Chest X-Ray 02/25/25 10:13 IMPRESSION: Early congestive heart failure. Venous Duplex 02/25/25 15:22 IMPRESSION: No sonographic evidence of deep venous thrombosis. Laboratory Results WBC 7.57 10^3/uL (3.29-11.43) 03/04/25 04:27 RBC 3.16 10^6/uL (3.85-5.65) L 03/04/25 04:27 Hgb 8.00 g/dL (11.27-16.99) L 03/04/25 04:27 Hct 27.7 % (37-53) L 03/04/25 04:27 MCV 87.7 fl (82-101) 03/04/25 04:27 MCH 25.3 pg (27-33) L 03/04/25 04:27 MCHC 28.9 g/dL (30-55) L 03/04/25 04:27 RDW 18.5 % (12.1-15.1) H 03/04/25 04:27 Plt Count 182 10^3/cmm (157-399) 03/04/25 04:27 MPV 9.9 fL (7.4-10.4) 03/04/25 04:27 Neut % (Auto) 80.1 % 03/04/25 04:27 Lymph % (Auto) 6.9 % 03/04/25 04:27 [place] % (Auto) 10.4 % 03/04/25 04:27 Eos % (Auto) 1.8 % 03/04/25 04:27 Baso % (Auto) 0.3 % 03/04/25 04:27 Reticulocyte % (Auto) 3.6 % (0.5-2.0) H 02/25/25 10:51 Neut # (Auto) 6.06 10^3/uL (1.8-7.7) 03/04/25 04:27 Lymph # (Auto) 0.5 10^3/uL (0.8-4.8) L 03/04/25 04:27 [place] # (Auto) 0.8 10^3/uL (0.2-0.9) 03/04/25 04:27 Eos # (Auto) 0.1 10^3/uL (0.0-0.8) 03/04/25 04:27 Baso # (Auto) 0.0 10^3/uL (0.0-0.1) 03/04/25 04:27 Nucleated RBC % (auto) 0 % 03/04/25 04:27 Nucleated RBCs # 0.0 /100WBC 03/04/25 04:27 Retic Production Index 2.02 02/25/25 10:51 Sodium 137 mmol/L (136-145) 03/04/25 04:27 Potassium 4.3 mmol/L (3.5-5.1) 03/04/25 04:27 Chloride 98 mmol/L (98-107) 03/04/25 04:27 Carbon Dioxide 28 mmol/L (22-29) 03/04/25 04:27 Anion Gap 15.3 (5-19) 03/04/25 04:27 BUN 49 mg/dL (8-23) H 03/04/25 04:27 Creatinine 1.9 mg/dL (0.7-1.2) H 03/04/25 04:27 GFR Calculation 35.4 mL/min (90-130) L 03/04/25 04:27 Glucose 116 mg/dL (65-115) H 03/04/25 04:27 Calculated Osmolality 298 mOsm/kg (285-295) H 03/04/25 04:27 Calcium 9.4 mg/dL (8.5-10.5) 03/04/25 04:27 Magnesium 1.9 mg/dL (1.7-2.3) 02/28/25 03:31 Iron 27 ug/dL (59-158) L 02/25/25 10:51 TIBC 428 mcg/dl 02/25/25 10:51 % Saturation 6.3 % (20-50) L 02/25/25 10:51 Unsat Iron Binding 401 ug/dL (112-347) H 02/25/25 10:51 Ferritin 38 ng/mL (30-400) 02/25/25 10:51 Total Bilirubin 0.4 mg/dL (0.15-1.2) 03/04/25 04:27 AST 12 U/L (0-40) 03/04/25 04:27 ALT 6 U/L (0-41) 03/04/25 04:27 Alkaline Phosphatase 52 U/L (40-130) 03/04/25 04:27 Troponin T 5th Gen ng/L 51 ng/L (0-15) H 02/28/25 03:31 NT-Pro-B Natriuret Pep 4105 pg/mL (0-125) H 02/25/25 10:51 Total Protein 6.3 g/dL (6.6-8.7) L 03/04/25 04:27 Albumin 3.4 g/dL (3.5-5.2) L 03/04/25 04:27 Globulin 2.9 g/dL (1.3-4.6) 03/04/25 04:27 Vitamin B12 > 2000 pg/mL (232-1245) H 02/25/25 10:51 TSH 2.18 uIU/mL (0.27-4.20) 02/25/25 10:51 Urine Color Yellow (Yellow) 02/28/25 20:54 Urine Appearance Cloudy (CLEAR) A 02/28/25 20:54 Urine pH 8.0 (5-7) A 02/28/25 20:54 Ur Specific [place] 1.017 (1.005-1.030) 02/28/25 20:54 Urine Protein 1+ (Negative) A 02/28/25 20:54 Urine Glucose (UA) Negative (Normal) 02/28/25 20:54 Urine Ketones Negative (Negative) 02/28/25 20:54 Urine Blood Negative (Negative) 02/28/25 20:54 Urine Nitrate Negative (Negative) 02/28/25 20:54 Urine Bilirubin Negative (Negative) 02/28/25 20:54 Urine Urobilinogen 1.0 mg/dL (Negative) 02/28/25 20:54 Ur Leukocyte Esterase Negative (Negative) 02/28/25 20:54 Urine RBC 3-5 /hpf (0-2) 02/28/25 20:54 Urine WBC 0-5 /hpf (0-5) 02/28/25 20:54 Ur Squamous Epith Cells 0-5 /hpf (0-5) 02/28/25 20:54 Amorphous Sediment Not Reportable 02/28/25 20:54 Urine Bacteria 4+ /hpf (NONE) H 02/28/25 20:54 Hyaline Casts 4.52 /lpf 02/28/25 20:54 Blood Type O Negative 02/25/25 12:42 Rho(D) Type Rh negative 02/25/25 12:42 Antibody Screen Negative 02/25/25 12:42 Crossmatch See Detail 02/25/25 12:42 Vitals Last Vital Signs Temp 98.4 F 03/04/25 07:04 Pulse 69 03/04/25 07:04 Resp 22 H 03/04/25 08:50 BP 134/69 03/04/25 07:04 Pulse Ox 96 03/04/25 08:50 O2 Del Method Nasal Cannula 03/04/25 04:23 O2 Flow Rate 2 03/04/25 04:23 Discharge Plan Discharge Patient Disposition: Home Condition: Stable Prescriptions: New furosemide 40 mg Tablet 40 mg PO BID@ Qty: 60 2RF Continued acetaminophen [Tylenol Arthritis Pain] 650 mg tablet extended release 650 mg PO Q12H PRN (Reason: pain) Qty: 60 1RF (DME) CPAP mask, tubing, supplies See Rx Instructions .ROUTE .MEDSUPPLY Qty: 1 1RF Rx Instructions: As directed (DME) auto CPAP 6-16 setting See Rx Instructions .Route .MEDSUPPLY Qty: 1 0RF Rx Instructions: As directed Norvasc 10 mg tablet 10 mg PO DAILY Qty: 90 3RF gemfibrozil 600 mg tablet 600 mg PO BID Qty: 200 3RF amiodarone [Pacerone] 200 mg tablet 200 mg PO DAILY Qty: 100 3RF hydralazine 50 mg tablet 50 mg PO TID Qty: 100 3RF carvedilol 3.125 mg tablet 3.125 mg PO BID Qty: 180 3RF Rx Instructions: must administer with a meal/food meloxicam 15 mg tablet 15 mg PO DAILY Qty: 90 0RF cholecalciferol (vitamin D3) [Vitamin D3] 125 mcg (5,000 unit) Tablet 125 mcg PO DAILY valsartan 160 mg tablet 160 mg PO DAILY Changed pantoprazole 40 mg tablet,delayed release (DR/EC) 40 mg PO BID Qty: 60 3RF Held rivaroxaban 20 mg tablet 20 mg PO DAILY Qty: 100 3RF Hold Instructions: Resume on 03/18/25. reevaluate on follow up. Rx Instructions: must administer with evening meal Discontinued furosemide 20 mg tablet 20 mg PO DAILY Qty: 100 3RF Other Ambulatory Orders: DME: Oxygen (Order) Location: None Selected Ordered By: Elsa Harrison Referrals: Brent Samuel MD [Primary Care Provider, [facility]] - 03/15/25 9:30 am Patient Instructions: GI Post Discharge Instructions w/ Anesthesia, Opioid Safety, Patient Portal & Erica Instructions Discharge Attestations Time Spent in Discharge Care*: greater than 30 min Status at Discharge: Cognitive status at discharge: cognitively intact, Behavioral status at discharge: cooperative and can be uncooperative, Quality Metrics Clinical Quality Measures [ No reported AMI, CVA or VTE this stay] Coding Level of Care Code 01612 Diagnoses Acute exacerbation of CHF (congestive heart failure) I50.23 Heart failure type: systolic Acute on chronic anemia D64.9 Urinary urgency R39.15 Atrial fibrillation with rapid ventricular response I48.91 Osteoarthritis M19.90
--- NOTE | 2025-03-04 10:29 | PC.SOCIAL ---
IMM Updated Updated pt on IMM. No questions voiced. Provided pt a copy. Initialed, dated, & timed copy in chart.
[2025-03-04] MEDS: iron sucrose 200 MG in sodium chloride 0.9% (100 ml) 100 ML 220 MG IV (10:43)
[2025-03-04 12:00] VITALS: BP 126/60; PULSE 72; RESP 28; O2SAT 97
[2025-03-04 12:08] VITALS: BP 134/69; PULSE 90; RESP 16; O2SAT 96
--- NOTE | 2025-03-04 13:22 | PC.NURSE ---
discharge instructions given and explained.pt states he is not going to the aiden md appt.instructed to call office and see if telemedicine is available.ems here to take pt home.discharged at this time
== END 2025-03-04 13:24 | disposition home or self-care (01) | DRG 811 ==
LOC: ER 11:59 → ER IP 12:26 → ICU 13:38 → CSU 02-28 12:43
PROVIDERS: Internal Medicine; Student in an Organized Health Care Education/Training Program; Surgery; Admitting Provider Internal Medicine; Emergency Provider Family Medicine; PCP Family Medicine; Visit Provider Internal Medicine
PROC: 0DJ08ZZ Inspection of Upper Intestinal Tract, Via Natural or Artificial Opening Endoscopic (ICD-10-PCS; principal; 2025-02-26 07:00)
DX: D64.9 Anemia, unspecified (principal); I50.33 Acute on chronic diastolic (congestive) heart failure; I13.0 Hypertensive heart and chronic kidney disease with heart failure and stage 1 through stage 4 chronic kidney disease, or unspecified chronic kidney disease; Z68.43 Body mass index [BMI] 50.0-59.9, adult; N17.9 Acute kidney failure, unspecified; N18.30 Chronic kidney disease, stage 3 unspecified; D63.1 Anemia in chronic kidney disease; R39.15 Urgency of urination; I48.91 Unspecified atrial fibrillation; M19.90 Unspecified osteoarthritis, unspecified site; R73.03 Prediabetes; I73.9 Peripheral vascular disease, unspecified; K29.00 Acute gastritis without bleeding; I89.0 Lymphedema, not elsewhere classified; I87.8 Other specified disorders of veins; G47.33 Obstructive sleep apnea (adult) (pediatric); E66.01 Morbid (severe) obesity due to excess calories; I25.10 Atherosclerotic heart disease of native coronary artery without angina pectoris; E78.5 Hyperlipidemia, unspecified; Z83.3 Family history of diabetes mellitus; R09.02 Hypoxemia; Z88.0 Allergy status to penicillin; Z79.01 Long term (current) use of anticoagulants; F10.90 Alcohol use, unspecified, uncomplicated; Z99.3 Dependence on wheelchair
CPT/HCPCS: 36415; 36430; 43235; 71045; 80048; 80053; 81001; 82607; 82728; 83540; 83550; 83735; 83880; 84443; 84484; 85014; 85018; 85025; 85045; 86850; 86900; 86920; 93005; 93306; 93970; 94760; 96374; 96375; 99285; J0360; J1756; J1938; J2060; J2250; J2270; J2470; J2704; J3490; J9999; P9016; P9040; Q0163

== ENCOUNTER 2025-03-05 08:47 | Emergency (ER) | payer MEDICARE, SELFPAY ==
[2025-03-05 08:52] VITALS: BP 143/50; PULSE 68; RESP 18; TEMP 36.7; O2SAT 97; BMI 54.3
--- NOTE | 2025-03-05 08:57 | W.ED.GENADLT ---
HPI - General Adult General: Chief complaint: Wound/Laceration Stated complaint: fall - left foot lac History of Present Illness: 67-year-old male presents emergency room with complaint of a left foot injury. Patient was trying to get out of bed and caught his foot on the carpet he did not actually fall but did sustain a skin tear. He is on Xarelto and had some bleeding from it by the time he arrives here bandage been applied there is no active bleeding. He is not having any chest pain. He has been very weak. He was recently hospitalized for congestive heart failure that hospitalization note was reviewed. He was discharged home that time he felt he could manage his ADLs. He feels at this time he is not able to do so. Associated symptoms: Reports malaise; Deny chest pain, dyspnea or rash Related Data Home Medications ?Medication ?Instructions ?Recorded ?Confirmed cholecalciferol (vitamin D3) 125 125 mcg PO DAILY 12/14/20 03/01/25 mcg (5,000 unit) tablet (Vitamin D3) valsartan 160 mg tablet 160 mg PO DAILY 02/25/25 03/01/25 Previous Rx's ?Medication ?Instructions ?Recorded auto CPAP 6-16 setting #1 ea 03/22/23 amlodipine 10 mg tablet (Norvasc) 10 mg PO DAILY #90 tabs 06/04/24 amiodarone 200 mg tablet (Pacerone) 200 mg PO DAILY #100 tabs 06/18/24 gemfibrozil 600 mg tablet 600 mg PO BID #200 tabs 06/18/24 rivaroxaban 20 mg tablet 20 mg PO DAILY #100 tabs 06/18/24 Held on 03/04/25. Instructions: Resume on 03/18/25. reevaluate on follow up. CPAP mask, tubing, supplies #1 ea 08/14/24 acetaminophen 650 mg 650 mg PO Q12H PRN pain #60 tabs 08/14/24 tablet,extended release (Tylenol Arthritis Pain) hydralazine 50 mg tablet 50 mg PO TID blood pressure #100 11/14/24 tabs carvedilol 3.125 mg tablet 3.125 mg PO BID #180 tabs 11/22/24 meloxicam 15 mg tablet 15 mg PO DAILY #90 tabs 01/17/25 furosemide 40 mg tablet 40 mg PO BID@08,16 #60 tabs 03/04/25 pantoprazole 40 mg tablet,delayed 40 mg PO BID #60 tabs 03/04/25 release mupirocin calcium 2 % topical cream 1 applic topical BID #30 grams 03/05/25 Allergies Allergy/AdvReac Type Severity Reaction Status Date / Time Penicillins Allergy ALGY-Difficulty Verified 03/01/25 14:12 Breathing Review of Systems Const: Reports: fatigue and malaise; Denies: fever(s) or chills Card: Denies: chest pain Resp: Denies: dyspnea GI: Denies: abdominal pain : Denies: dysuria, urinary frequency or urinary urgency Musc: Denies: neck pain or back pain Skin/Breast: Denies: rash PFSH ED PFSH: Medical History Afib Heart failure with mildly reduced ejection fraction Cardiac murmur, previously undiagnosed Bilateral impacted cerumen Pre-diabetes Obstructive sleep apnea syndrome, severe Severe obstructive sleep apnea with hypoxia on 01/03/2023 study Basal cell carcinoma of right ear Chronic shortness of breath CKD (chronic kidney disease) stage 3, GFR 30-59 ml/min Cardiac arrest with ventricular fibrillation Chronic episodic atrial fibrillation Hx of adenomatous colonic polyps Last Colonoscopy 09/12/2020 with adenomatous polyp removed at 50 cm F/U 5 yrs Osteoarthritis Left bundle branch block History of alcohol abuse PVD (peripheral vascular disease) Morbid obesity with BMI of 50.0-59.9, adult CHF (congestive heart failure) CAD (coronary artery disease) Hx of myocardial infarction HTN (hypertension) Anemia in chronic kidney disease Hyperlipidemia Surgical History Hx of external ear surgery History of open reduction and internal fixation (ORIF) procedure Hx of foot surgery History of surgery on wrist Family History Mother No problems noted. Father No problems noted. Grandmother Diabetes Denies family history of CAD (coronary artery disease) Clotting disorder Dementia Chronic kidney disease (CKD) Suicide Anesthesia complication Bleeding disorder Lung disease Cancer Stroke Social History Smoking and tobacco/nicotine status: never used tobacco/nicotine Alcohol intake: never Substance/Drug Use: never Marital status: Single Number of children: 1 Current occupational status: disabled Physical Exam Const: GENERAL APPEARANCE: cooperative ORIENTATION/CONSCIOUSNESS: Yes awake, Yes oriented to person, Yes oriented to place and Yes oriented to time HENMT: COMMON NORMALS: normocephalic, atraumatic and hearing grossly normal bilaterally HEAD & SCALP: normocephalic and atraumatic Resp: COMMON NORMALS: normal respiratory effort, No retractions, No use of accessory muscles and clear to auscultation bilaterally AUSCULTATION: clear to auscultation bilaterally Cardio: COMMON NORMALS: regular rate, regular rhythm and No murmurs present (Cardio) RATE: regular rate RHYTHM: regular rhythm GI: COMMON NORMALS: Soft to palpation and No hepatosplenomegaly present AUSCULTATION: Yes normoactive bowel sounds PALPATION: Yes Soft to palpation, No Tenderness to palpation present (GI), No Guarding due to palpation present (GI) and Yes No hepatosplenomegaly present Extremity: OTHER: 3+ edema lower extremities skin tears on dorsum of foot and on the flexor crease of the left fifth toe. No active bleeding Neuro: SENSORIUM/ORIENTATION: Yes oriented to person, Yes oriented to place and Yes oriented to time Skin: COMMON NORMALS: no rashes or lesions noted GENERAL SKIN EXAM: no rashes or lesions noted Course Vital Signs: Vital signs: Vital Signs Temperature 98.1 F 03/05/25 08:52 Pulse Rate 77 03/05/25 14:30 Respiratory Rate 18 03/05/25 08:52 Blood Pressure 136/75 03/05/25 14:30 Pulse Oximetry 98 03/05/25 14:30 Oxygen Delivery Me thod Nasal Cannula 03/05/25 08:52 Oxygen Flow Rate 2 03/05/25 08:52 MDM - General Adult Medical Decision Making Evaluation negative. No acute findings at this time. [facility] management asked to evaluate they were able to get him placed at [facility]. PT did evaluate him here as well. Will discharge him home apply mupirocin to the wounds on his foot. Follow-up with [facility] doctor and the [facility]. Medical Records I reviewed the patient's medical records. Lab Data I reviewed the patient's lab results. 03/05/25 09:16 03/05/25 09:16 Radiology Impressions Foot X-Ray 03/05/25 09:06 IMPRESSION: 1. No acute fracture or bone destruction. 2. Marked soft tissue edema of the foot and ankle. 3. Advanced chronic degenerative changes with ankylosis of the mid and hindfoot joints as noted above. Chest X-Ray 03/05/25 09:07 IMPRESSION: 1. Cardiac enlargement with mildly increased pulmonary vascularity. No acute finding. Laboratory Results WBC 7.39 10^3/uL (3.29-11.43) 03/05/25 09:16 RBC 3.86 10^6/uL (3.85-5.65) 03/05/25 09:16 Hgb 9.90 g/dL (11.27-16.99) L 03/05/25 09:16 Hct 34.0 % (37-53) L 03/05/25 09:16 MCV 88.1 fl (82-101) 03/05/25 09:16 MCH 25.6 pg (27-33) L 03/05/25 09:16 MCHC 29.1 g/dL (30-55) L 03/05/25 09:16 RDW 18.7 % (12.1-15.1) H 03/05/25 09:16 Plt Count 211 10^3/cmm (157-399) 03/05/25 09:16 MPV 8.8 fL (7.4-10.4) 03/05/25 09:16 Neut % (Auto) 82.6 % 03/05/25 09:16 Lymph % (Auto) 5.3 % 03/05/25 09:16 [place] % (Auto) 8.9 % 03/05/25 09:16 Eos % (Auto) 2.2 % 03/05/25 09:16 Baso % (Auto) 0.5 % 03/05/25 09:16 Neut # (Auto) 6.10 10^3/uL (1.8-7.7) 03/05/25 09:16 Lymph # (Auto) 0.4 10^3/uL (0.8-4.8) L 03/05/25 09:16 [place] # (Auto) 0.7 10^3/uL (0.2-0.9) 03/05/25 09:16 Eos # (Auto) 0.2 10^3/uL (0.0-0.8) 03/05/25 09:16 Baso # (Auto) 0.0 10^3/uL (0.0-0.1) 03/05/25 09:16 Nucleated RBC % (auto) 0 % 03/05/25 09:16 Nucleated RBCs # 0.0 /100WBC 03/05/25 09:16 Sodium 141 mmol/L (136-145) 03/05/25 09:16 Potassium 4.2 mmol/L (3.5-5.1) 03/05/25 09:16 Chloride 99 mmol/L (98-107) 03/05/25 09:16 Carbon Dioxide 26 mmol/L (22-29) 03/05/25 09:16 Anion Gap 20.2 (5-19) H 03/05/25 09:16 BUN 54 mg/dL (8-23) H 03/05/25 09:16 Creatinine 2.2 mg/dL (0.7-1.2) H 03/05/25 09:16 GFR Calculation 29.9 mL/min (90-130) L 03/05/25 09:16 Glucose 127 mg/dL (65-115) H 03/05/25 09:16 Calculated Osmolality 308 mOsm/kg (285-295) H 03/05/25 09:16 Calcium 10.0 mg/dL (8.5-10.5) 03/05/25 09:16 Total Bilirubin 0.4 mg/dL (0.15-1.2) 03/05/25 09:16 AST 17 U/L (0-40) 03/05/25 09:16 ALT 8 U/L (0-41) 03/05/25 09:16 Alkaline Phosphatase 62 U/L (40-130) 03/05/25 09:16 Troponin T Baseline 80 ng/L (0-15) H 03/05/25 09:16 Troponin T 120 Minute 74.48 ng/L (0-15) H 03/05/25 11:15 Delta Troponin T -5.52 ABS# (0-10) L 03/05/25 11:15 Total Protein 7.3 g/dL (6.6-8.7) 03/05/25 09:16 Albumin 4.0 g/dL (3.5-5.2) 03/05/25 09:16 Globulin 3.3 g/dL (1.3-4.6) 03/05/25 09:16 All radiology interpretation(s) finalized by discharge EKG Data EKG 1: Interpretation: EKG 03/05/2025 9:23 AM junctional rhythm left bundle branch block. Rate of 63 QTc 479 compared to previous EKGs earlier this month. Bundle branch block has been intermittent in the past. Computer generated interpretation: Foot X-Ray 03/05/25 09:06 IMPRESSION: 1. No acute fracture or bone destruction. 2. Marked soft tissue edema of the foot and ankle. 3. Advanced chronic degenerative changes with ankylosis of the mid and hindfoot joints as noted above. Chest X-Ray 03/05/25 09:07 IMPRESSION: 1. Cardiac enlargement with mildly increased pulmonary vascularity. No acute finding. Discharge Plan Discharge Patient Disposition: Home Clinical Impression: Skin tear Condition: Stable Prescriptions: New mupirocin calcium 2 % cream 1 applic topical BID Qty: 30 0RF No Action acetaminophen [Tylenol Arthritis Pain] 650 mg tablet extended release 650 mg PO Q12H PRN (Reason: pain) Qty: 60 1RF (DME) CPAP mask, tubing, supplies See Rx Instructions .ROUTE .MEDSUPPLY Qty: 1 1RF Rx Instructions: As directed (DME) auto CPAP 6-16 setting See Rx Instructions .Route .MEDSUPPLY Qty: 1 0RF Rx Instructions: As directed Norvasc 10 mg tablet 10 mg PO DAILY Qty: 90 3RF gemfibrozil 600 mg tablet 600 mg PO BID Qty: 200 3RF rivaroxaban 20 mg tablet 20 mg PO DAILY Qty: 100 3RF Rx Instructions: must administer with evening meal amiodarone [Pacerone] 200 mg tablet 200 mg PO DAILY Qty: 100 3RF hydralazine 50 mg tablet 50 mg PO TID Qty: 100 3RF carvedilol 3.125 mg tablet 3.125 mg PO BID Qty: 180 3RF Rx Instructions: must administer with a meal/food meloxicam 15 mg tablet 15 mg PO DAILY Qty: 90 0RF cholecalciferol (vitamin D3) [Vitamin D3] 125 mcg (5,000 unit) Tablet 125 mcg PO DAILY valsartan 160 mg tablet 160 mg PO DAILY furosemide 40 mg Tablet 40 mg PO BID@16 Qty: 60 2RF pantoprazole 40 mg tablet,delayed release (DR/EC) 40 mg PO BID Qty: 60 3RF Discharge Orders: Discharge ED (Routine); Ordered 03/05/25 Ordered By: Zack Downing Referrals: Brent Samuel MD [Primary Care Provider, Family Practice] Discharge Diet: Usual diet Discharge Activity: Increase activity as tolerated Patient Instructions: Opioid Safety, Pain Management, Patient Portal & Erica Instructions Activity Restrictions/Additional Instructions: Thank you for choosing [facility] for your healthcare needs today. It is very important that you follow up as instructed or that you return to the Emergency Department should you have concerns or if your condition changes or worsens in any way. Emergency department visits are focused on emergent conditions, in some cases you may require further evaluation on an outpatient basis. You were seen in the emergency room with a skin tear on your foot. It stopped bleeding the time you arrived here. The wound was dressed recommend that you apply topical antibiotic ointment to the wound twice daily and change the dressing each time. Follow-up with your primary care doctor within the next week. (Please note that included in your discharge packet is information concerning opioid safety and pain management. This information is given to all patients were discharged from the ER regardless of their discharge diagnosis or the medicines they usually take or are prescribed.) Print Language: Nepali Coding Level of Care Code ED Teacher [facility] for Helga Fonseca
[2025-03-05] MEDS: tetanus-dipt-pertussis 0.5 mL SDV IM (09:00)
--- NOTE | 2025-03-05 09:06 | XR_ITS ---
WS: [email or web address] Exam: XR foot LT min 3V* [id number] Date/Time of Exam: 03/05/2025 9:12 AM Reason For Exam: trauma Comparison 12/14/2020. There is ankylosis of the joints of the mid and hindfoot stable in appearance. A dorsal staple noted in the midfoot region. Severe degeneration at the ankle mortise. No acute fracture. No acute bone destruction. Advanced degenerative changes in the IP joints and first MP joint. Old fracture deformity of the distal third and fifth metatarsals. Severe demineralization of bone. Marked soft tissue edema of the foot and ankle. Collapsed plantar arch. XR/XR foot LT min 3V* [id number] IMPRESSION: 1. No acute fracture or bone destruction. 2. Marked soft tissue edema of the foot and ankle. 3. Advanced chronic degenerative changes with ankylosis of the mid and hindfoot joints as noted above.
--- NOTE | 2025-03-05 09:07 | XR_ITS ---
WS: [email or web address] Exam: XR chest 1V portable [id number] Date/Time of Exam: 03/05/2025 9:12 AM Reason For Exam: dyspnea/cough Comparison 02/25/2025. The heart is enlarged. Mildly increased pulmonary vascularity. No focal infiltrates or pleural effusion. The mediastinum is normal in contour for technique. Bony structures are intact. XR/XR chest 1V portable [id number] IMPRESSION: 1. Cardiac enlargement with mildly increased pulmonary vascularity. No acute fi nding.
--- NOTE | 2025-03-05 09:08 | ECG_ITS ---
[facility] Test Date: 2025-03-05 Pat Name: Kristopher Jesus Department: Room: Gender: Male Flamer After Lasting: : 1958-02-28 Requested By: Zack Santos Order Number: [id number] Hamzah MD: Andrew Cameron M.D. Measurements Intervals [place] Rate: 63 P: 0 MT: 200 QRS: 68 QRSD: 178 T: 59 QT: 465 QTc: 479 Interpretive Statements SINUS RHYTHM INTRAVENTRICULAR CONDUCTION DELAY Compared to ECG 02/27/2025 22:56:13 ST DEPRESSION IN THE INFERIOR LEADS NO LONGER PRESENT Electronically Signed On 03-06-2025 20:57:58 CDT by Andrew Cameron M.D. [email or web address]
[2025-03-05 09:22] LABS: Hematocrit 34.0 % (37-53); Hemoglobin 9.90 g/dL (11.27-16.99); Mean Corpuscular HGB Conc 29.1 g/dL (30-55); Mean Corpuscular Hemoglobin 25.6 pg (27-33); Mean Corpuscular Volume 88.1 fl (82-101); Nucleated Red Blood Cells % 0 %; Platelet Count 211 10^3/cmm (157-399); Red Blood Count 3.86 10^6/uL (3.85-5.65); White Blood Count 7.39 10^3/uL (3.29-11.43)
--- NOTE | 2025-03-05 09:25 | PC.SOCIAL ---
Placement CM requested to see patient for SNF placement. Spoke with patient at bedside and he states he doesn't care where his referral is sent, but is agreeable to SNF placement. CM explained that there are three local facilities in , will try there first. 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 Referral faxed to [facility], [facility], [facility], [facility] [place] and [facility].
--- NOTE | 2025-03-05 09:26 | PC.NURSE ---
cleaned L foot wound with sterile water irrigation. skin tear noted to top of foot. bleeding controlled at this time.
[2025-03-05 10:00] LABS: Troponin(5th) Baseline 80 ng/L (0-15)
[2025-03-05 10:01] LABS: Alanine Aminotransferase 8 U/L (0-41); Albumin Level 4.0 g/dL (3.5-5.2); Alkaline Phosphatase 62 U/L (40-130); Chloride 99 mmol/L (98-107); Potassium 4.2 mmol/L (3.5-5.1); Sodium 141 mmol/L (136-145)
[2025-03-05 10:15] LABS: Anion Gap 20.2 (5-19); Aspartate Amino Transferase 17 U/L (0-40); Blood Urea Nitrogen 54 mg/dL (8-23); Calcium 10.0 mg/dL (8.5-10.5); Carbon Dioxide 26 mmol/L (22-29); Creatinine Clr Calc Pharmacy 52.7002; Globulin 3.3 g/dL (1.3-4.6); Glucose 127 mg/dL (65-115); Osmolality Calculated 308 mOsm/kg (285-295); Total Protein 7.3 g/dL (6.6-8.7)
[2025-03-05 10:18] VITALS: BP 125/79; PULSE 78; O2SAT 98
[2025-03-05] MEDS: tranexamic acid 1,000 mg/10mL SDV 1000 MG IRRIGATION (10:48)
[2025-03-05 11:37] LABS: Troponin 5 2HR 74.48 ng/L (0-15)
[2025-03-05 11:43] LABS: Troponin 5 2HR Delta -5.52 ABS# (0-10)
--- NOTE | 2025-03-05 13:13 | PC.SOCIAL ---
[facility] accepts pt Carlie with [facility] called & said they can accept pt. She said pt does have Medicaid & has a spin down. But they can take him under his Medicaid. House Piping Inspector followed up with pt. He said he is okay with giving up his check. Updated Carlie of this. She said they can take pt today. House Piping Inspector updated the ER of this. They will arrange a EMS/PCS ride. CM will fax d/c paperwork once it is available.
[2025-03-05 14:25] VITALS: BP 136/75; PULSE 74; O2SAT 98
[2025-03-05 14:30] VITALS: BP 136/75; PULSE 77; O2SAT 98
--- NOTE | 2025-03-05 14:44 | PC.SOCIAL ---
COMRU CODE: [id number] completed & signed by Dr Downing.
--- NOTE | 2025-03-05 14:46 | PC.SOCIAL ---
DC Faxed d/c paperwork to [facility]. No other needs voiced for Cm.
== END 2025-03-05 14:41 | disposition home or self-care (01) ==
PROVIDERS: Emergency Provider Family Medicine; PCP Family Medicine
DX: S91.312A Laceration without foreign body, left foot, initial encounter (principal); I25.10 Atherosclerotic heart disease of native coronary artery without angina pectoris; I13.0 Hypertensive heart and chronic kidney disease with heart failure and stage 1 through stage 4 chronic kidney disease, or unspecified chronic kidney disease; N18.30 Chronic kidney disease, stage 3 unspecified; I50.20 Unspecified systolic (congestive) heart failure; E78.5 Hyperlipidemia, unspecified; W18.49XA Other slipping, tripping and stumbling without falling, initial encounter
CPT/HCPCS: 36415; 71045; 73630; 80053; 84484; 85025; 90471; 90715; 93005; 97110; 97161; 99285; J9999

== ENCOUNTER 2025-03-12 14:49 | Emergency (ER) | payer MEDICARE, MEDICAID, SELFPAY ==
--- NOTE | 2025-03-12 14:48 | XR_ITS ---
WS: [email or web address] XR chest 1V portable [id number] REASON FOR EXAM: Shortness of breath FINDINGS: The chest is essentially unchanged compared to 03/05/2025. Significant tortuosity and ectasia of the thoracic aorta. Cardiomegaly. Moderate central pulmonary venous congestion. No findings of pulmonary edema. XR/XR chest 1V portable [id number] IMPRESSION: Stable abnormal chest as above.
[2025-03-12 14:50] VITALS: BP 156/66; PULSE 81; RESP 16; TEMP 36.8; O2SAT 97; BMI 54.2
--- NOTE | 2025-03-12 14:52 | ED_ITS ---
HPI - Weakness General: Chief complaint: Weakness Stated complaint: sob, wrong meds History of Present Illness: 67-year-old man with a history of morbid obesity, atrial fibrillation, chronic anticoagulation on Xarelto, chronic hypoxemic respiratory failure on 2 L nasal cannula at all times congestive heart failure, obstructive sleep apnea, chronic kidney disease, left bundle branch block, hypertension, coronary artery disease and hyperlipidemia who presents to the emergency room by ambulance from home with weakness. He said he had been admitted here and then transferred to another hospital and whenever he left that hospital they put him in [place] at the skilled nursing. He says they were going to start making him pay and so he told them to send him home. However when he got home he discovered he is too weak to get out of bed and so he called an ambulance and now he is ready to pay for skilled nursing placement. No acute changes today. He thinks he may have taken some wrong medications. Perhaps a little bit short of breath than usual Related Data Home Medications ?Medication ?Instructions ?Recorded ?Confirmed cholecalciferol (vitamin D3) 125 125 mcg PO DAILY 10/0103/01/25 mcg (5,000 unit) tablet (Vitamin D3) valsartan 160 mg tablet 160 mg PO DAILY 02/25/25 Previous Rx's ?Medication ?Instructions ?Recorded auto CPAP 6-16 setting #1 ea 03/22/23 amlodipine 10 mg tablet (Norvasc) 10 mg PO DAILY #90 t abs 06/04/24 amiodarone 200 mg tablet (Pacerone) 200 mg PO DAILY #1 00 tabs 06/18/24 gemfibrozil 600 mg tablet 600 mg PO BID #200 tabs 12/05 rivaroxaban 20 mg tablet 20 mg PO DAILY #100 tabs 12/05 Held on 03/04/25. Instructions: Resume on 03/18/25. reevaluate on follow up. CPAP mask, tubing, supplies #1 ea 08/14/24 acetaminophen 650 mg 650 mg PO Q12H PRN pain #60 tabs 08/14/24 tablet,extended release (Tylenol Arthritis Pain) carvedilol 3.125 mg tablet 3.125 mg PO BID #180 tabs 0 11/22/24 meloxicam 15 mg tablet 15 mg PO DAILY #90 tabs 01/04 furosemide 40 mg tablet 40 mg PO BID@08,16 #60 tabs 03/04/25 pantoprazole 40 mg tablet,delayed 40 mg PO BID #60 tab s 03/04/25 release mupirocin calcium 2 % topical cream 1 applic topical B ID #30 grams 03/05/25 hydralazine 50 mg tablet See Rx Instructions .Route 0 03/12/25 .COMPLEX #300 tabs Allergies Allergy/AdvReac Type Severity Reaction Status Date / Time Penicillins Allergy ALGY-Difficulty Verified 03/01/25 14:12 Breathing Review of Systems Narrative: Constitutional symptoms: Negative except as documented in HPI. Skin symptoms: Negative except as documented in HPI. Eye symptoms: Negative except as documented in HPI. ENMT symptoms: Negative except as documented in HPI. Respiratory symptoms: Negative except as documented in HPI. Cardiovascular symptoms: Negative except as documented in HPI. Gastrointestinal symptoms: Negative except as documented in HPI. Genitourinary symptoms: Negative except as documented in HPI. Musculoskeletal symptoms: Negative except as documented in HPI. Neurologic symptoms: Negative except as documented in HPI. Psychiatric symptoms: Negative except as documented in HPI. Endocrine symptoms: Negative except as documented in HPI. PFSH ED PFSH: Medical History (Updated 03/12/25 @ 15:11 by Miryam Fowler MD) Afib Heart failure with mildly reduced ejection fraction Cardiac murmur, previously undiagnosed Bilateral impacted cerumen Pre-diabetes Obstructive sleep apnea syndrome, severe Severe obstructive sleep apnea with hypoxia on 01/03/2023 study Basal cell carcinoma of right ear Chronic shortness of breath CKD (chronic kidney disease) stage 3, GFR 30-59 ml/min Cardiac arrest with ventricular fibrillation Chronic episodic atrial fibrillation Hx of adenomatous colonic polyps Last Colonoscopy 09/12/2020 with adenomatous polyp removed at 50 cm F/U 5 yrs Osteoarthritis Left bundle branch block History of alcohol abuse PVD (peripheral vascular disease) Morbid obesity with BMI of 50.0-59.9, adult CHF (congestive heart failure) CAD (coronary artery disease) Hx of myocardial infarction HTN (hypertension) Anemia in chronic kidney disease Hyperlipidemia Surgical History Hx of external ear surgery History of open reduction and internal fixation (ORIF) procedure Hx of foot surgery History of surgery on wrist Family History Mother No problems noted. Father No problems noted. Grandmother Diabetes Denies family history of CAD (coronary artery disease) Clotting disorder Dementia Chronic kidney disease (CKD) Suicide Anesthesia complication Bleeding disorder Lung disease Cancer Stroke Social History Smoking and tobacco/nicotine status: never used tobacco/nicotine Alcohol intake: never Substance/Drug Use: never Marital status: Single Number of children: 1 Current occupational status: disabled Physical Exam Narrative: EXAM NARRATIVE: General: Alert, no acute distress. Skin: Warm, dry. Head: Normocephalic, atraumatic. Neck: Supple, trachea midline. Eye: Extraocular movements are intact. Ears, nose, mouth and throat: mucosa moist. Cardiovascular: Regular, Normal peripheral perfusion. Respiratory: Lungs are clear to auscultation, respirations are non-labored, breath sounds are equal, Symmetrical chest wall expansion. Gastrointestinal: Soft, Nontender, Non distended Musculoskeletal: Normal ROM, no deformity. Neurological: Alert and oriented, No focal neurological deficit observed. Psychiatric: Cooperative, appropriate mood & affect. Course Vital Signs: Vital signs: Vital Signs Temperature 98.3 F 03/12/25 14:50 Pulse Rate 81 03/12/25 14:50 Respiratory Rate 16 03/12/25 14:50 Blood Pressure 156/66 03/12/25 14:50 Pulse Oximetry 97 03/12/25 14:50 Oxygen Delivery Me thod Nasal Cannula 03/12/25 14:50 Oxygen Flow Rate 2 03/12/25 14:50 MDM - Weakness Medical Decision Making Medical decision making: Differential diagnosis including but not limited to and based on the above HPI, review of systems and physical exam: This patient states he has no change in his oxygen requirements. No chest pain. Was trying to get to the skilled nursing and called 911 and they had to take him to the emergency room. No workup indicated at this time. I did order a chest x-ray and EKG just for basic clearance Chest x-ray: No acute process. No infiltrate. No pneumothorax. This was reviewed and interpreted by myself the emergency room physician. I also reviewed the radiology report. EKG: Time 1503. Rate 60. Normal sinus rhythm, No ST-T changes, no ectopy, left bundle branch block, This was reviewed and interpreted by myself the ER physician at 1508 I reviewed the patient's medical record. 67-year-old man with a history of morbid obesity, atrial fibrillation, chronic anticoagulation on Xarelto, chronic hypoxemic respiratory failure on 2 L nasal cannula at all times congestive heart failure, obstructive sleep apnea, chronic kidney disease, left bundle branch block, hypertension, coronary artery disease and hyperlipidemia Reexamination: Case management consulted. They have spoken with the skilled nursing who was expecting him to come there. They are ready and waiting. Patient is being discharged. He will require ambulance transfer as he is not ambulatory and morbidly obese Assessment and plan: Weakness Morbid obesity Congestive heart failure - Discharged home - Discussed plan with patient. Answered any questions. - Evaluation and treatment of this problem were appropriate in the emergency setting. Lab Data Radiology Impressions Chest X-Ray 03/12/25 14:48 IMPRESSION: Stable abnormal chest as above. All radiology interpretation(s) finalized by discharge Discharge Plan Discharge Patient Disposition: Home Clinical Impression: Weakness, Morbid obesity with BMI of 50.0-59.9, adult, Chronic hypoxemic respiratory failure CHF (congestive heart failure) Qualifiers: Heart failure type: unspecified Heart failure chronicity: chronic Qualified Code(s): I50.9 - Heart failure, unspecified Condition: Stable Prescriptions: No Action acetaminophen [Tylenol Arthritis Pain] 650 mg tablet extended release 650 mg PO Q12H PRN (Reason: pain) Qty: 60 1RF (DME) CPAP mask, tubing, supplies See Rx Instructions .ROUTE .MEDSUPPLY Qty: 1 1RF Rx Instructions: As directed (DME) auto CPAP 6-16 setting See Rx Instructions .Route .MEDSUPPLY Qty: 1 0RF Rx Instructions: As directed Norvasc 10 mg tablet 10 mg PO DAILY Qty: 90 3RF gemfibrozil 600 mg tablet 600 mg PO BID Qty: 200 3RF rivaroxaban 20 mg tablet 20 mg PO DAILY Qty: 100 3RF Rx Instructions: must administer with evening meal amiodarone [Pacerone] 200 mg tablet 200 mg PO DAILY Qty: 100 3RF carvedilol 3.125 mg tablet 3.125 mg PO BID Qty: 180 3RF Rx Instructions: must administer with a meal/food meloxicam 15 mg tablet 15 mg PO DAILY Qty: 90 0RF hydralazine 50 mg tablet See Rx Instructions .ROUTE .COMPLEX Qty: 300 3RF Dose Instruction: TAKE 1 TABLET BY MOUTH 3 TIMES DAILY FOR BLOOD PRESSURE Rx Instructions: TAKE 1 TABLET BY MOUTH 3 TIMES DAILY FOR BLOOD PRESSURE cholecalciferol (vitamin D3) [Vitamin D3] 125 mcg (5,000 unit) Tablet 125 mcg PO DAILY mupirocin calcium 2 % cream 1 applic topical BID Qty: 30 0RF valsartan 160 mg tablet 160 mg PO DAILY furosemide 40 mg Tablet 40 mg PO BID@08,16 Qty: 60 2RF pantoprazole 40 mg tablet,delayed release (DR/EC) 40 mg PO BID Qty: 60 3RF Discharge Orders: Discharge ED (Routine); Ordered 03/12/25 Ordered By: Miryam Fowler Referrals: Brent Samuel MD [Primary Care Provider, Family Practice] Discharge Diet: Usual diet Discharge Activity: Increase activity as tolerated Patient Instructions: Opioid Safety, Pain Management, Patient Portal & Erica In structions Activity Restrictions/Additional Instructions: Thank you for choosing [facility] for your healthcare needs today. You have been screened and evaluated and felt safe for discharge. Health conditions do change or evolve sometimes and as such it is important that you follow up with your Primary Doctor to be re checked, 3-5 days is a general good time frame for follow up. You are always welcome to return to the ED for re assessment if your symptoms are worsening or you have new concerns Print Language: Canadian Coding Level of Care Code ED Sample Processor for Helga Fonseca
--- OUTSIDE RECORDS SUMMARY | 2025-03-12 14:55 | XMS_ITS ---
Author Organization [facility] are Care Team Providers Care Janitor And Cleaner Name Role Phone Ck Alfaro Unavailable Unavailable Zoran, Chavez Unavailable Unavailable Tony Littlejohn Unavailable Unavailable Allergies and adverse reactions Code CodeSystem Substance Reaction Severity StartDate Concern Status 7984 RXNORM Penicillin Unknown 03/05/2025 active Care Team Name Role Address Phone Organization Dates Ck Alfaro PCP [address] [place], [place], [facility], [facility] (Office): [facility] 03/05/2025 - 03/11/2025 Chavez Timylance [address], [place], [facility], [facility] (Office): : [facility] 03/05/2025 - 03/11/2025 Tony Littlejohn [address] [place] [address], [address], [place] (Office): [facility] 03/05/2025 - 03/11/2025 Encounters EncounterType Code CodeSystem Description Performer ServiceDe liveryLocation Date Ambulatory Encounter CPT Code = [id number] Osteoarthritis of knee Maddie Soni [facility] Address: [address] [place] [address], [facility], [facility]. 03/05 Ambulatory Encounter CPT Code = [address] Hypertensive heart failure [facility] Address: [address] [place] [address]. 03/05 Ambulatory Encounter CPT Code = [address] Morbid obesity [facility] Address: [address] [place] [address]. 03/05 Ambulatory Encounter CPT Code = [address] Atrial fibrillation [facility] Address: [address] [place] [address]. 03/05 Ambulatory Encounter CPT Code = [id number] Peripheral vascular disease [facility] Address: [address] [place] [address]. 03/05 Ambulatory Encounter CPT Code = 88897 6678127 [address]66[address] Atherosclerosi s of coronary artery without angina pectoris [facility] Address: [address] [place] [address]. 03/05 Ambulatory Encounter CPT Code = 57299 6173101 [address] Chronic kidney disease stage 3 [facility] Address: [address] [place] [address]. 03/05 Ambulatory Encounter CPT Code = 15287 3322515 4278381 [address] Need for personal care assistance [facility] Address: [address] [place] [address]. 03/05 Ambulatory Encounter CPT Code = [address] Hyperlipidemia [facility] Address: [address] [place] [address]. 03/05 Ambulatory Encounter CPT Code = [address]3089 [address] Prediabetes [facility] Address: [address] [place] [address]. 03/05 Ambulatory Encounter CPT Code = [address] Obstructive sleep apnea syndrome Maddieomayra Soni [facility] Address: [address] [place] [address], [address] [place] [address]. 03/05 Functional Status Code Name Recorded Time Value Entered By Ambulation 03/11/2025 Total Dependence justintabor Ambulation 03/11/2025 Total Dependence justintabor Ambulation 03/11/2025 Total Dependence justintabor Ambulation 03/11/2025 Total Dependence justintabor Bathing 03/07/2025 Total Dependence ncollins Dressing 03/11/2025 Total Dependence justintabor Feeding or Eating 03/11/2025 Independent justintabo r Toileting 03/11/2025 Total Dependence justintabor Transferring 03/11/2025 Total Dependence justintabor Immunizations Immunization Status Vaccine Details Vaccine Code CodeSystem Date Notes TB 2 Step Mantoux Skin Test completed tuberculin skin test; unspecified formulation lotNumber: [id number] expiry: 03/13/2026 Mfg: PAR Pharmacautical Given 1.0 unit Left Forearm intradermally Step 1 of Multi-step with next step required 98 CVX created date: 03/05/2025 consent date: 03/05/2025 administer ed date: 03/05/2025 Educated by on 03/05/2025 Medications Section Medication Name Status Code CodeSystem Dose Route Frequency Admin Type Sig Text Start Date End Date Indication Furosemide Oral Tablet 40 MG active 71064 8 RXNORM 40 mg Oral two times a day Routin e Give 40 mg by mouth two times a day for CHF 2024 - CHF Norvasc Oral Tablet 10 MG aborted 18374 5 RXNORM 10 mg Oral one time a day Routin e Give 10 mg by mouth one time a day for htn 03/06 htn hydrALAZINE HCl Oral Tablet 50 MG aborted 33347 5 RXNORM 50 mg Oral three times a day Routin e Give 50 mg by mouth three times a day for a fib 03/06 a fib Meloxicam Oral Tablet 15 MG active 08397 5 RXNORM 15 mg Oral one time a day Routin e Give 15 mg by mouth one time a day for pain 2024 - pain Protonix Oral Packet 40 MG aborted 33730 8 RXNORM 40 mg Oral two times a day Routin e Give 40 mg by mouth two times a day for GERD 03/05 GERD Amiodarone HCl Oral Tablet 200 MG active 98324 8 RXNORM 200 mg Oral one time a day Routin e Give 200 mg by mouth one time a day for a fib 2024 - a fib Valsartan Oral Tablet 160 MG active 27694 1 RXNORM 160 mg Oral one time a day Routin e Give 160 mg by mouth one time a day for htn 2024 - htn Carvedilol Oral Tablet 3.125 MG active 39586 4 RXNORM 3.125 mg Oral two times a day Routin e Give 3.125 mg by mouth two times a day for htn 2024 - htn Pantoprazol e Sodium Tablet Delayed Release 40 MG active 09477 0 RXNORM 1 table t Oral two times a day Routin e Give 1 table t by mouth two times a day for GERD 2024 - GERD Cholecalcif edson Oral Tablet active 1 table t Oral one time a day Routin e Give 1 table t by mouth one time a day for vit def 2024 - vit def Rivaroxaban Oral Tablet 20 MG active 43674 86 RXNORM 20 mg Oral one time a day Routin e Give 20 mg by mouth one time a day for pvd 2024 - pvd Acetaminoph en Tablet 650 MG active 61505 4 RXNORM 1 table t Oral as needed PRN Give 1 table t by mouth every 12 hours as neede d for Gener al Disco mfort 2024 - General Discomfort Gemfibrozil Oral Tablet 600 MG active 51966 9 RXNORM 600 mg Oral two times a day Routin e Give 600 mg by mouth two times a day for hld 2024 - hld Tuberculin PPD Solution 5 UNIT/0.1ML active 79610 2 RXNORM 0.1 ml Intrad ermal one time a day Routin e Injec t 0.1 ml intra derma lly one time a day for TB (Tube rculo sis) Scree humberto for 1 Admin istra tions AND Injec t 0.1 ml intra derma lly one time a day every 14 day(s ) for TB (Tube rculo sis) Scree humberto for 1 Admin istra tions 03/06 TB (Tuberculos is) Screening 28860 2 RXNORM 0.1 ml Intrad ermal one time a day Routin e Injec t 0.1 ml intra derma lly one time a day for TB (Tube rculo sis) Scree humberto for 1 Admin istra tions AND Injec t 0.1 ml intra derma lly one time a day every 14 day(s ) for TB (Tube rculo sis) Scree humberto for 1 Admin istra tions 04/02 TB (Tuberculos is) Screening Pepto-Bismo l Oral Suspension aborted 30 ml Oral as needed PRN Give 30 ml by mouth every 4 hours as neede d for upset stoma ch 03/10 upset stomach Tums Oral Tablet Chewable 500 MG aborted 80571 7 RXNORM 2 table t Oral as needed PRN Give 2 table t by mouth every 2 hours as neede d for upset stoma ch; indig estio n for 1 Day Tonig ht only. 03/10 upset stomach; indigestion Problems Problem # Description Date of onset Resolved Date Code CodeSystem Concern Status 1 ATHEROSCLEROTIC HEART DISEASE OF [place] CORONARY ARTERY WITHOUT ANGINA PECTORIS 03/05/[id number] active 2 CHRONIC KIDNEY DISEASE, STAGE 3 UNSPECIFIED 03/05/[address] active 3 HYPERLIPIDEMIA, UNSPECIFIED 03/05/[address] active 4 HYPERTENSIVE HEART DISEASE WITH HEART FAILURE 03/05/[address] active 5 MORBID (SEVERE) OBESITY DUE TO EXCESS CALORIES 03/05/[address] active 6 NEED FOR ASSISTANCE WITH PERSONAL CARE 03/05/[id number] active 7 OBSTRUCTIVE SLEEP APNEA (ADULT) (PEDIATRIC) 03/05/[address] active 8 OSTEOARTHRITIS OF KNEE, UNSPECIFIED 03/05/[address] active 9 PERIPHERAL VASCULAR DISEASE, UNSPECIFIED 03/05/[address] active 10 PREDIABETES 03/05/[address] active 11 UNSPECIFIED ATRIAL FIBRILLATION 03/05/[address] active Reason for Referral No Reasons for Referral Entered Diagnostic Results Result Code Code System Date Test Result Interpretation Reference Range Status Notes [id number] [facility] 03/08 HbA1c % / Complete Blood Count / CMP / Lipid Panel / TSH / Cogent- Completed Result for: Kristopher Jesus ( 02/28/1958, M) [phone] 99-9 [facility] 03/07 Cogent- Value: See Attachment Units: Normal Final 18467-0 [facility] 03/07 HbA1c % Value: 4.8 Units: % Normal 4.4-6.1 Final 45443 [facility] 03/07 HCT Value: 29.5 Units: % Low 40.1-51.0 Final 706-2 [facility] 03/07 BASO% Value: 0.6 Units: % Normal 0.2-1.2 Final 713-8 [facility] 03/07 EOS% Value: 4.3 Units: % Normal 0.8-7.0 Final 788-0 [facility] 03/07 RDW Value: 21.4 Units: % High 11.6-14.4 Final 5905-5 [facility] 03/07 MONO% Value: 9.2 Units: % Normal 5.3-12.2 Final 34745-1 [facility] 03/07 LYMPH% Value: 12.1 Units: % Low 21.8-53.1 Final 770-8 [facility] 03/07 NEUT% Value: 73.8 Units: % High 34.0-67.9 Final 3097-3 [facility] 03/07 BUN/CREAT RATIO Value: 23.6 Units: {calc} High 10-20 Final 777-3 [facility] 03/07 MPV Value: 7.1 Units: fL Low 9.4-12.4 Final 787-2 [facility] 03/07 MCV Value: 85.2 Units: fL Normal 79.0-92.2 Final 785-6 [facility] 03/07 MCHC Value: 30.5 Units: g/dL Low 32.3-36.5 Final 718-7 [facility] 03/07 HGB Value: 9.0 Units: g/dL Low 13.7-17.5 Final 74030-6 [facility] 03/07 GLOBULIN, Calculated Value: 2.9 Units: g/dL Normal 1.9-3.7 Final 2885-2 [facility] 03/07 TOTAL PROTEIN Value: 6.6 Units: g/dL Normal 6.4-8.9 Final 1751-7 [facility] 03/07 ALBUMIN Value: 3.7 Units: g/dL Normal 3.5-5.7 Final 1920-8 [facility] 03/07 ASPARTATE AMINOTRANS FERASE (AST) Value: 16 Units: [IU]/L Normal 13-39 Final 1742- [facility] 03/07 ALANINE AMINOTRANS FERASE (ALT) Value: 7 Units: [IU]/L Normal 7-52 Final 6768-6 [facility] 03/07 ALKALINE PHOSPHATAS E (ALP) Value: 56 Units: [IU]/L Normal 34-104 Final 38748-8 [facility] 03/07 ANION GAP Value: 16.7 Units: mEq/L High 8-16 Final 2028-02 [facility] 03/07 CARBON DIOXIDE (BICARB) Value: 29 Units: mEq/L Normal 21-31 Final 2074-0 [facility] 03/07 CHLORIDE Value: 100 Units: mEq/L Normal 98-107 Final 2823-3 [facility] 03/07 POTASSIUM Value: 4.7 Units: mEq/L Normal 3.5-5.1 Final 2951-2 [facility] 03/07 SODIUM Value: 141 Units: mEq/L Normal 136-145 Final 85291-9 [facility] 03/07 LDL (CALCULATE D) Value: 54 Units: mg/dL Normal <100 mg/dL Final *LDL Calculatio n is invalid if Triglyceri de level is >400 mg/dL.*The NCEP guidelines classify LDL - Cholestero l levels as follows:1. < 100 mg/dL Optimal2. 100 129 mg/dL Near optimal/ab ove optimal3. 131 159 mg/dL Borderline high4. 160 189 mg/dL High5. => 190 mg/dL Very High 2571-8 [facility] 03/07 TRIGLYCERI WILFRED Value: 69 Units: mg/dL Normal <150 mg/dL Final Triglyceri de Risk Classifica tion <150 mg/dL Normal 150-199 mg/dL Borderline High 200-499 mg/dL High =>500 mg/dL Very High 2084-9 [facility] 03/07 HDL Value: 51 Units: mg/dL Normal >40 mg/dL Final In 2000, The National Cholestero l Education Program (NCEP) increased the high-risk medical decision point to <40 mg/dL.The guidelines classify HDL- C levels as follows:1. < 40 mg/dL as indicative of a major risk factor for CHD.2. > 60 mg/dL as a negative risk factor for CHD. 2092-08 [facility] 03/07 CHOLESTERO L, TOTAL Value: 118.5 Units: mg/dL Normal <200 mg/dL Final Total Cholestero l Risk Classifica tion < 200 mg/dL Desirable 200 - 239 mg/dL Borderline High > 240 mg/dL High 2160-0 [facility] 03/07 CREATININE Value: 2.86 Units: mg/dL High 0.6-1.3 Final 3094-0 [facility] 03/07 BLOOD UREA NITROGEN (BUN) Value: 67.6 Units: mg/dL High 7.0-25.0 Final 1974- [facility] 03/07 TOTAL BILIRUBIN Value: 0.5 Units: mg/dL Normal 0.3-1.0 Final 22732-4 [facility] 03/07 CALCIUM Value: 9.4 Units: mg/dL Normal 8.6-10.2 Final 2345-7 [facility] 03/07 GLUCOSE Value: 78 Units: mg/dL Normal 74-109 Final 81522-3 [facility] 03/07 Estimated GFR AA Value: 28.4 Units: mL/min/{1.7 3_m2} Low >60.0 Final 93000-2 [facility] 03/07 Estimated GFR Value: 23.5 Units: mL/min/{1.7 3_m2} Low >60.0 Final 785-6 [facility] 03/07 MCH Value: 26.0 Units: pg Normal 25.7-32.2 Final 1759-0 [facility] 03/07 A/G RATIO Value: 1.3 Units: {ratio} Normal 0.8-2.0 Final 75056-2 [facility] 03/07 THYROID-ST IMULATING HORMONE (TSH) Value: 2.29 Units: u[IU]/mL Normal 0.45-5.33 Final 6690-2 [facility] 03/07 WBC Value: 5.8 Units: x10^3/uL Normal 4.23-9.07 Final 736-9 [facility] 03/07 LYMPH# Value: 0.7 Units: x10^3/uL Low 1.32-3.57 Final 751-8 [facility] 03/07 NEUT# Value: 4.3 Units: x10^3/uL Normal 1.78-5.38 Final 777-3 [facility] 03/07 PLT Value: 292 Units: x10^3/uL Normal 163-337 Final 704-7 [facility] 03/07 BASO# Value: 0.0 Units: x10^3/uL Low 0.01-0.08 Final 711-2 [facility] 03/07 EOS# Value: 0.3 Units: x10^3/uL Normal 0.04-0.54 Final 742-7 [facility] 03/07 MONO# Value: 0.5 Units: x10^3/uL Normal 0.30-0.82 Final 789-8 [facility] 03/07 RBC Value: 3.47 Units: 10*6/uL Low 4.63-6.08 Final Test Code Code System Name Date 03/07/2025 Complete Blood Count 025 [facility] 03/07/2025 Complete Blood Count 025 [facility] 03/07/2025 Lipid Panel 03/07/2025 [facility] 03/07/2025 Complete Blood Count 025 [facility] 03/07/2025 03/07/2025 Complete Blood Count 025 Social History Social History Observation Description Start Date End Date Code Code System Current Smoking Status Tobacco smoking consumption unknown [id number] SNOMED CT Sex Assigned At Male 02/28/1958 61281-9 [facility] Gender Identity Sexual Orientation Vital Signs Code Code System Vitals Name Values and Units Timing Information 76315-8 [facility] Pain Level Value=0.0 03/11/2025 8462-4 [facility] Blood Pressure-Diastolic Value=56 Un its=mmHg 03/11/2025 8480-6 [facility] Blood Pressure-Systolic Iqpsa=773 Un its=mmHg 03/11/2025 8867-4 [facility] Heart rate Value=56.0 Units=/min 9279-1 [facility] Respiratory Rate Value=22.0 Units=/m in 03/08/2025 8310-5 [facility] Body Temperature Value=97.4 Units= F 03/08/2025 70478-9 [facility] O2 % dC Oximetry Value=95.0 Units= % 03/08/2025 8302-2 [facility] Height Value=71.0 Units=Inches 03/05/2025
--- NOTE | 2025-03-12 15:03 | ECG_ITS ---
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 Measurements Intervals [place] Rate: 60 P: -80 NH: 129 QRS: 76 QRSD: 189 T: 71 QT: 504 QTc: 507 Interpretive Statements JUNCTIONAL RHYTHM WITH OCCASIONAL VENTRICULAR PREMATURE COMPLEXES LEFT BUNDLE BRANCH BLOCK [120+ ms QRS DURATION, 80+ ms Q/S IN V1/V2, 85+ ms R IN I/aVL/V5/V6] Compared to ECG 03/05/2025 09:23:52 Junctional rhythm now present Ventricular premature complex(es) now present Left bundle-branch block now present Sinus rhythm no longer present Intraventricular conduction delay no longer present Electronically Signed On 03-14-2025 08:39:07 CDT by Tera Cristobal M.D. [email or web address]
--- NOTE | 2025-03-12 15:57 | PC.NURSE ---
Addendum entered by Dahlia Grayson RN 03/12/25 15:58: provider notified. med route changed from IVP to PO. Original Note: this nurse attempted to start IV on pt. before this nurse could attempt the IV, pt stated absolutely not. i will not be fucking stabbed in the arm. i've already told other people this. you won't be fucking stabbing me.
== END 2025-03-12 16:54 | disposition home or self-care (01) ==
PROVIDERS: Emergency Provider Emergency Medicine; PCP Family Medicine
DX: R53.1 Weakness (principal); E66.01 Morbid (severe) obesity due to excess calories; Z68.43 Body mass index [BMI] 50.0-59.9, adult; J96.11 Chronic respiratory failure with hypoxia; E78.5 Hyperlipidemia, unspecified; I25.10 Atherosclerotic heart disease of native coronary artery without angina pectoris; I13.0 Hypertensive heart and chronic kidney disease with heart failure and stage 1 through stage 4 chronic kidney disease, or unspecified chronic kidney disease; N18.30 Chronic kidney disease, stage 3 unspecified; I50.20 Unspecified systolic (congestive) heart failure; Z85.828 Personal history of other malignant neoplasm of skin
CPT/HCPCS: 71045; 93005; 96374; 99285; J9999

== ENCOUNTER 2025-03-20 19:21 | Inpatient (IN) | payer MEDICARE, MEDICAID, SELFPAY ==
[2025-03-20] VITALS (16 sets, daily range): BP systolic 124–171; BP diastolic 81–128; PULSE 87–112; RESP 16–32; TEMP 36.8–37.1; O2SAT 67–100; BMI 53.0
--- NOTE | 2025-03-20 19:24 | ECG_ITS ---
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 Requested By: Miryam Santos Order Number: [id number] Reading MD: MIKAYLA ARORYO Measurements Intervals [place] Rate: 99 P: 0 DE: 0 QRS: 73 QRSD: 177 T: -86 QT: 436 QTc: 560 Interpretive Statements ATRIAL FIBRILLATION WITH ABERRANT CONDUCTION OR VENTRICULAR PREMATURE COMPLEXES LEFT BUNDLE BRANCH BLOCK [120+ ms QRS DURATION, 80+ ms Q/S IN V1/V2, 85+ ms R IN I/aVL/V5/V6] Compared to ECG 03/12/2025 15:03:50 Aberrant conduction of supraventricular beat(s) now present Junctional rhythm no longer present Electronically Signed On 03-21-2025 16:48:17 CDT by MIKAYLA ARROYO [email or web address]
--- NOTE | 2025-03-20 19:25 | XRR_ITS ---
PROCEDURE INFORMATION: Exam: XR Chest Exam date and time: 03/20/2025 8:11 PM Age: 67 years old Clinical indication: Pain; Angina pectoris; Additional info: Shortness of breath TECHNIQUE: Imaging protocol: Radiologic exam of the chest. Views: 1 view. COMPARISON: CR XR chest 1V portable [id number] 03/12/2025 2:54 PM FINDINGS: Lungs: There are findings of cardiomegaly pulmonary edema present with small pleural effusions Pleural spaces: See Lungs finding. Heart/Mediastinum: See Lungs finding. Bones/joints: There are degenerative changes of the AC joints. XR/XR chest 1V portable [id number] IMPRESSION: Findings of decompensated congestive heart failure pulmonary edema small pleural effusions.
--- NOTE | 2025-03-20 19:26 | W.ED.SOB ---
HPI - SOB/Dyspnea General: Chief Complaint: Shortness of Breath/Dyspnea Stated Complaint: sob Time Seen by Provider: 03/20/25 19:25 History of Present Illness: HPI Narrative: 67-year-old man with a history of morbid obesity, anemia, chronic anticoagulation on Xarelto, chronic hypoxemic respiratory failure on 4 L nasal cannula at all times, chronic edema, congestive heart failure, atrial fibrillation, coronary artery disease, peripheral vascular disease, left bundle branch block, chronic kidney disease and hyperlipidemia who presents to the emergency room from senior living with complaints of chest pain that has resolved, worsening oxygen requirements and some shortness of breath. He received a couple of breathing treatments and he says he is breathing a little bit better. Chest pain is resolved. No known fevers. No altered mental status. No focal motor deficits. Related Data Home Medications ?Medication ?Instructions ?Recorded ?Confirmed cholecalciferol (vitamin D3) 125 125 mcg PO DAILY 12/14/20 03/21/25 mcg (5,000 unit) tablet (Vitamin D3) valsartan 160 mg tablet 160 mg PO DAILY 02/25/25 03/21/25 albuterol sulfate 2.5 mg/3 mL 2.5 mg inhalation Q4H PRN Dyspnea 03/21/25 03/21/25 (0.083 %) solution for nebulization ammonium lactate 12 % topical cream 1 applic topical DAILY 03/21/25 03/21/25 baclofen 5 mg tablet 5 mg PO Q8H PRN Muscle Spasm 03/21/25 03/21/25 guaifenesin 100 mg/5 mL oral 200 mg PO Q4H PRN Cough 03/21/25 03/21/25 liquid (Guaifed (guaifenesin)) menthol 2.5 mg-pectin 7 mg 1 agusto PO Q4H PRN Cough 03/21/25 03/21/25 lozenges (Cough Drops (menthol-pectin)) nystatin 100,000 unit/gram topical 1 applic topical BID 03/21/25 03/21/25 powder Previous Rx's ?Medication ?Instructions ?Recorded auto CPAP 6-16 setting #1 ea 03/22/23 amiodarone 200 mg tablet (Pacerone) 200 mg PO DAILY #100 tabs 06/18/24 gemfibrozil 600 mg tablet 600 mg PO BID #200 tabs 06/18/24 rivaroxaban 20 mg tablet 20 mg PO DAILY #100 tabs 06/18/24 Held on 03/04/25. Instructions: Resume on 03/18/25. reevaluate on follow up. CPAP mask, tubing, supplies #1 ea 08/14/24 acetaminophen 650 mg 650 mg PO Q12H PRN pain #60 tabs 08/14/24 tablet,extended release (Tylenol Arthritis Pain) carvedilol 3.125 mg tablet 3.125 mg PO BID #180 tabs 11/22/24 furosemide 40 mg tablet 40 mg PO BID@08,16 #60 tabs 03/04/25 pantoprazole 40 mg tablet,delayed 40 mg PO BID #60 tabs 03/04/25 release Allergies Allergy/AdvReac Type Severity Reaction Status Date / Time Penicillins Allergy ALGY-Difficulty Verified 03/01/25 14:12 Breathing Review of Systems Narrative: Constitutional symptoms: Negative except as documented in HPI. Skin symptoms: Negative except as documented in HPI. Eye symptoms: Negative except as documented in HPI. ENMT symptoms: Negative except as documented in HPI. Respiratory symptoms: Negative except as documented in HPI. Cardiovascular symptoms: Negative except as documented in HPI. Gastrointestinal symptoms: Negative except as documented in HPI. Genitourinary symptoms: Negative except as documented in HPI. Musculoskeletal symptoms: Negative except as documented in HPI. Neurologic symptoms: Negative except as documented in HPI. Psychiatric symptoms: Negative except as documented in HPI. Endocrine symptoms: Negative except as documented in HPI. FOR[facility]LY [facility] ED PFSH: Medical History (Updated 03/20/25 @ 21:19 by Liza Cortez MD) Afib Heart failure with mildly reduced ejection fraction Cardiac murmur, previously undiagnosed Bilateral impacted cerumen Pre-diabetes Obstructive sleep apnea syndrome, severe Severe obstructive sleep apnea with hypoxia on 01/03/2023 study Basal cell carcinoma of right ear Chronic shortness of breath CKD (chronic kidney disease) stage 3, GFR 30-59 ml/min Cardiac arrest with ventricular fibrillation Chronic episodic atrial fibrillation Hx of adenomatous colonic polyps Last Colonoscopy 09/12/2020 with adenomatous polyp removed at 50 cm F/U 5 yrs Osteoarthritis Left bundle branch block History of alcohol abuse PVD (peripheral vascular disease) Morbid obesity with BMI of 50.0-59.9, adult CHF (congestive heart failure) CAD (coronary artery disease) Hx of myocardial infarction HTN (hypertension) Anemia in chronic kidney disease Hyperlipidemia Surgical History Hx of external ear surgery History of open reduction and internal fixation (ORIF) procedure Hx of foot surgery History of surgery on wrist Family History Mother No problems noted. Father No problems noted. Grandmother Diabetes Denies family history of CAD (coronary artery disease) Clotting disorder Dementia Chronic kidney disease (CKD) Suicide Anesthesia complication Bleeding disorder Lung disease Cancer Stroke Social History Smoking and tobacco/nicotine status: never used tobacco/nicotine Alcohol intake: never Substance/Drug Use: never Marital status: Single Number of children: 1 Current occupational status: disabled Physical Exam Narrative: EXAM NARRATIVE: General: Alert, no acute distress. Skin: Warm, dry. Head: Normocephalic, atraumatic. Neck: Supple, trachea midline. Eye: Extraocular movements are intact. Ears, nose, mouth and throat: Oral mucosa moist. Cardiovascular: Regular rate and rhythm, Normal peripheral perfusion. Respiratory: coarse, scattered wheeze, mild increased wob. tachypnea, breath sounds are equal, Symmetrical chest wall expansion. Gastrointestinal: Soft, Nontender, Non distended Musculoskeletal: Normal ROM, no deformity. Neurological: Alert and oriented, No focal neurological deficit observed. Psychiatric: Cooperative, appropriate mood & affect. Course Vital Signs: Vital signs: Vital Signs Temperature 98.3 F 03/21/25 08:30 Pulse Rate 75 03/21/25 10:25 Respiratory Rate 19 H 03/21/25 10:15 Blood Pressure 129/67 03/21/25 10:15 Pulse Oximetry 100 03/21/25 10:25 Oxygen Delivery Me thod BiPAP 03/21/25 10:15 Oxygen Flow Rate 4 03/21/25 08:30 Fraction of Inspir ed Oxygen 40 03/21/25 10:25 MDM - SOB/Dyspnea Medical Decision Making Differential diagnosis for patient with shortness of breath includes but is not limited to and based on the above HPI, review of systems and physical exam: Pneumonia. Bronchitis. Asthma or COPD with acute exacerbation. Acute coronary syndrome / [place]. Pulmonary embolism. Anxiety. Congestive heart failure. Viral infections including influenza and Covid-19. Atrial fibrillation. Anxiety. Pleural effusion. Pneumothorax. Orders placed to evaluate differential diagnosis based on the above differential, HPI and physical exam Differential diagnosis for patient with chest pain includes but is not limited to and based on the above HPI, review of systems and physical exam: Pneumonia. unstable angina. angina. Acute coronary syndrome / [place]. Pulmonary embolism. Costochondritis / musculoskeletal. Pleurisy. Pericarditis. Esophageal spasm. Pancreatis. Cholecystitis. Orders placed to evaluate differential diagnosis based on the above differential, HPI and physical exam I reviewed the patient's medical record. 67-year-old man with a history of morbid obesity, anemia, chronic anticoagulation on Xarelto, chronic hypoxemic respiratory failure on 4 L nasal cannula at all times, chronic edema, congestive heart failure, atrial fibrillation, coronary artery disease, peripheral vascular disease, left bundle branch block, chronic kidney disease and hyperlipidemia. Was seen in late February in the emergency room for a skin tear. He was admitted to the senior living from there on that visit. He had been at home prior to this. He had been discharged in the hospital the day before after being treated for congestive heart failure anemia and A-fib with RVR. ABG 7.168/86/77 with an O2 sat of 90% on a nonrebreather. Acute on chronic hypoxemic respiratory failure. Acute hypercapnic respiratory failure EKG: Time 192. Rate 99. Atrial fibrillation, No ST-T changes, no ectopy, left bundle branch block, This was reviewed and interpreted by myself the ER physician at 1930. Known A-fib and left bundle branch block Lab Review: Laboratory results were reviewed and interpreted by myself the emergency room physician. No leukocytosis. Stable anemia at 8.5. proBNP is almost double his baseline at 9200. Initial troponin is elevated at 71. BUN and creatinine are 37 and 1.7. This is actually lower than his usual. Which would indicate fluid overload. Also his proBNP is double normal supporting this. Chest x-ray: Cardiomegaly, pulmonary edema. Films were interpreted by myself the emergency room provider and pending final radiology review. Consultation: I spoke with Dr. Cortez who is on-call for the hospitalist service. I told her the basic story had the plan to be admitted to the ICU. repeat blood gas to determine if he will need intubated are pending at this time. I have spoken with the oncoming emergency room physician who will follow-up on the blood gas and will admit the patient Assessment and plan: Acute on chronic hypoxemic respiratory failure Acute hypercapnic respiratory failure Urinary retention Accelerated hypertension COPD with acute exacerbation ?IV Lasix, IV Solu-Medrol, 2 breathing treatments, BiPAP -I discussed the patient with the hospitalist on-call who is admitting the patient. - Discussed findings and plan with patient. Answered any questions. - All laboratory values were reviewed and interpreted personally by myself, the ER physician - All imaging was reviewed and interpreted personally by myself, the ER physician. - Evaluation and treatment of this problem were appropriate in the emergency setting Lab Data 03/21/25 03:53 03/21/25 02:05 Labs/Radiology: Radiology Impressions Chest X-Ray 03/20/25 19:25 IMPRESSION: Findings of decompensated congestive heart failure pulmonary edema small pleural effusions. Laboratory Results WBC 9.34 10^3/uL (3.29-11.43) 03/20/25 19:15 RBC 3.28 10^6/uL (3.85-5.65) L 03/20/25 19:15 Hgb 8.50 g/dL (11.27-16.99) L 03/20/25 19:15 Hct 30.5 % (37-53) L 03/20/25 19:15 MCV 93.0 fl (82-101) 03/20/25 19:15 MCH 25.9 pg (27-33) L 03/20/25 19:15 MCHC 27.9 g/dL (30-55) L 03/20/25 19:15 RDW 19.8 % (12.1-15.1) H 03/20/25 19:15 Plt Count 261 10^3/cmm (157-399) 03/20/25 19:15 MPV 9.1 fL (7.4-10.4) 03/20/25 19:15 Neut % (Auto) 72.5 % 03/20/25 19:15 Lymph % (Auto) 16.2 % 03/20/25 19:15 [place] % (Auto) 8.8 % 03/20/25 19:15 Eos % (Auto) 1.2 % 03/20/25 19:15 Baso % (Auto) 0.4 % 03/20/25 19:15 Neut # (Auto) 6.78 10^3/uL (1.8-7.7) 03/20/25 19:15 Lymph # (Auto) 1.5 10^3/uL (0.8-4.8) 03/20/25 19:15 [place] # (Auto) 0.8 10^3/uL (0.2-0.9) 03/20/25 19:15 Eos # (Auto) 0.1 10^3/uL (0.0-0.8) 03/20/25 19:15 Baso # (Auto) 0.0 10^3/uL (0.0-0.1) 03/20/25 19:15 Nucleated RBC % (auto) 0 % 03/20/25 19:15 Nucleated RBCs # 0.0 /100WBC 03/20/25 19:15 Specimen Type Arterial 03/20/25 19:33 Sample Site Radial, right 03/20/25 19:33 ABG pH 7.17 (7.35-7.45) L* 03/20/25 19:33 ABG pCO2 86.1 mmHg (35-45) H* 03/20/25 19:33 ABG pO2 77.1 mmHg (80.0-100.0) L 03/20/25 19:33 ABG PO2/FiO2 Ratio 171 03/20/25 19:33 ABG HCO3 31.2 mmol/L (22-26) H 03/20/25 19:33 ABG O2 Saturation 93.1 03/20/25 19:33 ABG Base Excess 1.5 mmol/L (-2.0-2.0) 03/20/25 19:33 Melvin Test Pos 03/20/25 19:33 A-a O2 Gradient 18.8 mmHg (5-10) H 03/20/25 19:33 Hematocrit 26.8 % (42-52) L 03/20/25 19:33 Hgb O2 Saturation 90.7 % (95-100) L 03/20/25 19:33 Carboxyhemoglobin 2.2 %THgb (0.4-20.1) 03/20/25 19:33 Methemoglobin 0.4 % (0.4-1.5) 03/20/25 19:33 Total Hemoglobin 8.7 g/dL (14-18) L 03/20/25 19:33 Sodium 147.0 mmol/L (131-143) H 03/20/25 19:33 Potassium 3.7 mmol/L (3.5-5.0) 03/20/25 19:33 Glucose 181.0 mg/dL (70-115) H 03/20/25 19:33 Ionized Calcium 1.4 mmol/L (1.1-1.4) 03/20/25 19:33 O2 Delivery Device Nc 03/20/25 19:33 O2 Liters/Min 6.0 % 03/20/25 19:33 FiO2 45.0 % 03/20/25 19:33 Locomotive Engineer ID [place]ro 03/20/25 19:33 Sodium 145 mmol/L (136-145) 03/20/25 19:15 Potassium 4.0 mmol/L (3.5-5.1) 03/20/25 19:15 Chloride 101 mmol/L (98-107) 03/20/25 19:15 Carbon Dioxide 30 mmol/L (22-29) H 03/20/25 19:15 Anion Gap 18.0 (5-19) 03/20/25 19:15 BUN 37 mg/dL (8-23) H 03/20/25 19:15 Creatinine 1.7 mg/dL (0.7-1.2) H 03/20/25 19:15 GFR Calculation 40.3 mL/min (90-130) L 03/20/25 19:15 Glucose 189 mg/dL (65-115) H 03/20/25 19:15 POC Glucose 182 mg/dL (70-110) H 03/20/25 19:32 Calculated Osmolality 314 mOsm/kg (285-295) H 03/20/25 19:15 Lactic Acid 1.1 mmol/L (0.5-2.2) 03/20/25 19:15 Calcium 9.7 mg/dL (8.5-10.5) 03/20/25 19:15 Total Bilirubin 0.6 mg/dL (0.15-1.2) 03/20/25 19:15 AST 14 U/L (0-40) 03/20/25 19:15 ALT 7 U/L (0-41) 03/20/25 19:15 Alkaline Phosphatase 62 U/L (40-130) 03/20/25 19:15 Troponin T Baseline 71 ng/L (0-15) H 03/20/25 19:15 NT-Pro-B Natriuret Pep 9294 pg/mL (0-125) H 03/20/25 19:15 Total Protein 6.7 g/dL (6.6-8.7) 03/20/25 19:15 Albumin 3.9 g/dL (3.5-5.2) 03/20/25 19:15 Globulin 2.8 g/dL (1.3-4.6) 03/20/25 19:15 Procalcitonin 0.07 ng/mL (0-0.5) 03/20/25 19:15 Influenza A (PCR) Negative (Negative) 03/20/25 19:44 Influenza Type B (PCR) Negative (Negative) 03/20/25 19:44 RSV (PCR) Negative (Negative) 03/20/25 19:44 SARS-CoV-2 (PCR) Negative (Negative) 03/20/25 19:44 All radiology interpretation(s) finalized by discharge Discharge Plan Discharge Patient Disposition: Admitted As Inpatient Admit Provider: Liza Cortez Clinical Impression: Acute on chronic hypoxic respiratory failure, Acute hypercapnic respiratory failure, Urinary retention Condition: Stable Coding Level of Care Code ED Production Illustrator for Helga Fonseca
[2025-03-20 19:32] LABS: Hematocrit 30.5 % (37-53); Hemoglobin 8.50 g/dL (11.27-16.99); Mean Corpuscular HGB Conc 27.9 g/dL (30-55); Mean Corpuscular Hemoglobin 25.9 pg (27-33); Mean Corpuscular Volume 93.0 fl (82-101); Nucleated Red Blood Cells % 0 %; Platelet Count 261 10^3/cmm (157-399); Red Blood Count 3.28 10^6/uL (3.85-5.65); White Blood Count 9.34 10^3/uL (3.29-11.43)
[2025-03-20 19:46] LABS: ABG PCO2 86.1 mmHg (35-45); ABG PH Result 7.17 (7.35-7.45); Alveolar-Arterial Oxygen Gradi 18.8 mmHg (5-10); Arterial Blood Gas Hematocrit 26.8 % (42-52); Blood Gas Allen Test Pos; Blood Gas LPM 6.0 %; Blood Gas Operator Identificat MONRO; Blood Gas Sample Site Radial, right; Blood Gas Sample Type Arterial; Carboxyhemoglobin 2.2 %THgb (0.4-20.1); Glucose Level-ABG 181.0 mg/dL (70-115); HCO3 ABG 31.2 mmol/L (22-26); Ionized Calcium Level - ABG 1.4 mmol/L (1.1-1.4); Methemoglobin 0.4 % (0.4-1.5); Oxygen Saturation ABG 93.1; PO2 ABG 77.1 mmHg (80.0-100.0); PO2 FiO2 Ratio Arterial Blood 171; Potassium Level - ABG 3.7 mmol/L (3.5-5.0); Sodium Level - ABG 147.0 mmol/L (131-143)
[2025-03-20 19:56] LABS: Lactic Sepsis W/Reflex 1.1 mmol/L (0.5-2.2)
[2025-03-20] MEDS: FUROsemide 10 mg/mL SDV 10mL 80 MG IVP (19:58)
[2025-03-20] MEDS: methylPREDNISolone sod succ 125 mg/2 mL INJ IVP (19:58)
[2025-03-20 19:59] LABS: Troponin(5th) Baseline 71 ng/L (0-15)
[2025-03-20 20:07] LABS: NT Pro B Type Natriuretic Pept 9294 pg/mL (0-125); Procalcitonin 0.07 ng/mL (0-0.5)
[2025-03-20 20:18] LABS: Alanine Aminotransferase 7 U/L (0-41); Albumin Level 3.9 g/dL (3.5-5.2); Alkaline Phosphatase 62 U/L (40-130); Anion Gap 18.0 (5-19); Aspartate Amino Transferase 14 U/L (0-40); Blood Urea Nitrogen 37 mg/dL (8-23); Calcium 9.7 mg/dL (8.5-10.5); Carbon Dioxide 30 mmol/L (22-29); Chloride 101 mmol/L (98-107); Creatinine Clr Calc Pharmacy 69.1188; Globulin 2.8 g/dL (1.3-4.6); Glucose 189 mg/dL (65-115); Osmolality Calculated 314 mOsm/kg (285-295); Potassium 4.0 mmol/L (3.5-5.1); Sodium 145 mmol/L (136-145); Total Protein 6.7 g/dL (6.6-8.7)
[2025-03-20 20:38] LABS: Respiratory Syncytial Virus Ce NEGATIVE (Negative); SARS-CoV-2 PCR NEGATIVE (Negative)
--- NOTE | 2025-03-20 21:01 | PM.HP ---
Providers/Chief Complaint Admitting Physician: CALIXTO CORTEZ--DO--admitted before midnight Primary Care Provider: Brent Samuel MD Chief Complaint: sob History of Present Illness Kristopher Jesus is a 67 year old male who is coming from assisted for care with complaints of shortness of breath, a very recent discharge from the hospital March 02, 2025 for the same hypoxic hypercapnic respiratory failure and CHF exacerbation. Dr. Riley called for hospitalist consult to see this patient and evaluate for ICU admission. I have seen and evaluated patient patient initial ABG pH was 7.1, pCO2 of 86 and a repeat of ABG on BiPAP improved to a pH of 7.3 and patient is alert awake oriented patient doing well on BiPAP will be going to ICU at this time for care. The chest x-ray is pending at this time for an official report that lungs are clear but with coarse breath sounds with normal white count. I have empirically covered patient with azithromycin and doxycycline for associated bronchitis. Patient BNP was over 9000. Patient is currently on BiPAP and the designation will be ICU. Patient is on steroid for associated bronchitis with bronchospasm and on diuresis for noted CHF exacerbation. Patient is in stable condition and had been admitted to ICU. Review of Systems Narrative: System review upon 10 organ reviewed we are essentially unremarkable except for cardiovascular system with shortness of breath and hypoxic hypercapnic respiratory failure requiring a BiPAP. Notes patient does not have a BiPAP at home patient is on Xarelto and Amio for his atrial fibrillation. Diuretics given because of CHF otherwise system review where unremarkable except for left foot wound and bilateral lymphangitis Medications/Allergies Home Medications ?Medication ?Instructions ?Recorded ?Confirmed ?Last Taken ?Type cholecalciferol (vitamin D3) 125 125 mcg PO DAILY 12/14/20 03/01/25 02/25/25 History mcg (5,000 unit) tablet (Vitamin D3) auto CPAP 6-16 setting #1 ea 03/22/23 03/01/25 Unknown Rx amlodipine 10 mg tablet (Norvasc) 10 mg PO DAILY #90 tabs 06/04/24 03/01/25 02/25/25 Rx amiodarone 200 mg tablet (Pacerone) 200 mg PO DAILY #100 tabs 06/18/24 03/01/25 02/25/25 Rx gemfibrozil 600 mg tablet 600 mg PO BID #200 tabs 06/18/24 03/01/25 02/25/25 Rx rivaroxaban 20 mg tablet 20 mg PO DAILY #100 tabs 06/18/24 03/01/25 02/25/25 Rx Held on 03/04/25. Instructions: Resume on 03/18/25. reevaluate on follow up. CPAP mask, tubing, supplies #1 ea 08/14/24 03/01/25 Unknown Rx acetaminophen 650 mg 650 mg PO Q12H PRN pain #60 tabs 08/14/24 03/01/25 Unknown Rx tablet,extended release (Tylenol Arthritis Pain) carvedilol 3.125 mg tablet 3.125 mg PO BID #180 tabs 11/22/24 03/01/25 02/25/25 Rx meloxicam 15 mg tablet 15 mg PO DAILY #90 tabs 01/17/25 03/01/25 02/25/25 Rx valsartan 160 mg tablet 160 mg PO DAILY 02/25/25 03/01/25 02/25/25 History furosemide 40 mg tablet 40 mg PO BID@08,16 #60 tabs 03/04/25 03/04/25 Unknown Rx pantoprazole 40 mg tablet,delayed 40 mg PO BID #60 tabs 03/04/25 03/04/25 Unknown Rx release mupirocin calcium 2 % topical cream 1 applic topical BID #30 grams 03/05/25 Unknown Rx hydralazine 50 mg tablet See Rx Instructions .Route 03/12/25 Unknown Rx .COMPLEX #300 tabs Allergies Allergy/AdvReac Type Severity Reaction Status Date / Time Penicillins Allergy ALGY-Difficulty Verified 03/01/25 14:12 Breathing PFSH Acute PFSH: Medical History Afib Heart failure with mildly reduced ejection fraction Cardiac murmur, previously undiagnosed Bilateral impacted cerumen Pre-diabetes Obstructive sleep apnea syndrome, severe Severe obstructive sleep apnea with hypoxia on 01/03/2023 study Basal cell carcinoma of right ear Chronic shortness of breath CKD (chronic kidney disease) stage 3, GFR 30-59 ml/min Cardiac arrest with ventricular fibrillation Chronic episodic atrial fibrillation Hx of adenomatous colonic polyps Last Colonoscopy 09/12/2020 with adenomatous polyp removed at 50 cm F/U 5 yrs Osteoarthritis Left bundle branch block History of alcohol abuse PVD (peripheral vascular disease) Morbid obesity with BMI of 50.0-59.9, adult CHF (congestive heart failure) CAD (coronary artery disease) Hx of myocardial infarction HTN (hypertension) Anemia in chronic kidney disease Hyperlipidemia Surgical History Hx of external ear surgery History of open reduction and internal fixation (ORIF) procedure Hx of foot surgery History of surgery on wrist Family History Mother No problems noted. Father No problems noted. Grandmother Diabetes Denies family history of CAD (coronary artery disease) Clotting disorder Dementia Chronic kidney disease (CKD) Suicide Anesthesia complication Bleeding disorder Lung disease Cancer Stroke Social History Smoking and tobacco/nicotine status: never used tobacco/nicotine Alcohol intake: never Substance/Drug Use: never Marital status: Single Number of children: 1 Current occupational status: disabled Vitals/I&O/Wt Last Vital Signs Temp 98.2 F 03/20/25 19:40 Pulse 104 H 03/20/25 20:09 Resp 24 H 03/20/25 20:09 BP 153/92 03/20/25 19:40 Pulse Ox 97 03/20/25 20:09 O2 Del Method BiPAP 03/20/25 20:09 O2 Flow Rate 4 03/20/25 19:28 FiO2 40 03/20/25 20:09 Weight last 48 hrs Weight 177.355 kg Physical Exam Narrative: Patient is awake and alert and talking on BiPAP HEENT normocephalic atraumatic neck neck is supple cardiovascular heart rate is regular lungs are pretty much clear abdomen soft nontender nondistended unremarkable. Extremities are with bilateral edema with lymphangitis and the left foot wound wrapped, has good pulses. Neurology has no focality lab studies lab studies and noted and are all at baseline with CBC and CMP. Data 03/20/25 19:15 03/20/25 19:15 Micro: Microbiology 03/20/25 19:49 Blood Culture - Preliminary Blood SPECIMEN COLLECTED 03/20/25 19:45 Blood Culture - Preliminary Blood SPECIMEN COLLECTED A&P Assessment and plan 1. Acute hypoxic on chronic hypercapnic respiratory failure: 2. COPD exacerbation: 3. Acute exacerbation of CHF (congestive heart failure): 4. Anemia of chronic disease: 5. Chronic atrial fibrillation: 6. Chronic hypoxic respiratory failure, on home oxygen therapy: Plan: #1 Hypoxic hypercapnic respiratory failure with CHF exacerbation - Admit to ICU on continuous BiPAP at this time - Chest x-ray obtained and pending official report though did not see any pneumonia but patient is with CHF - DiureticS to continue for patient CHF exacerbation - Steroid therapy in place for patient bronchospasm for underlining COPD exacerbation - Nebulizing treatment in place - Supplemental oxygen at 40% in place and continued patient on BiPAP BOTH for CHF and hypoxic hypercapnic respiratory failure, patient is responding to therapy pH now is 7.3 and improvement from his 7.1 Patient with azithromycin and doxycycline for associated bronchitis at this time and this is empirically - Patient on Menezes catheter for I and O's #2 Chronic stage IV kidney - Patient creatinine is at baseline at 1.7 - Keep medication renal friendly #3 Atrial fibrillation - Continue patient amiodarone at home dose - Continue anticoagulation with Xarelto #4 Bilateral lymphangitis of the lower extremity with left foot wound - Wound care team consulted for local wound dressing - Continue to care for the chronic wound #5 Hypertension - Continue to keep patient normotensive GI and DVT prophylaxis in place - Patient is on Protonix for PPI and also on Xarelto For DVT prophylaxis and also for patient atrial fibrillation PDMP PDMP Reviewed: Last Reviewed 03/20/25 21:25 by Calixto Cortez MD Attestations Medical Necessity Statement*: Patient is with hypoxic hypercapnic respiratory failure that is critical at presentation optimized somewhat and then admitted to ICU for further care patient also is with heart failure with active care at this time will need at least 2 midnights to optimize care. Coding Level of Care Code 69139 Diagnoses Acute hypoxic on chronic hypercapnic respiratory failure J96.01; J96.12 COPD exacerbation J44.1 Acute exacerbation of CHF (congestive heart failure) I50.9 Anemia of chronic disease D63.8 Chronic atrial fibrillation I48.20 Chronic hypoxic respiratory failure, on home oxygen therapy J96.11; Z99.81 Time Spent (min) 60
[2025-03-20 21:03] LABS: ABG PH Result 7.33 (7.35-7.45); Alveolar-Arterial Oxygen Gradi 18.9 mmHg (5-10); Arterial Blood Gas Hematocrit 23.6 % (42-52); Blood Gas Allen Test Pos; Blood Gas Operator Identificat MONRO; Blood Gas Sample Site Radial, left; Blood Gas Sample Type Arterial; Carboxyhemoglobin 2.5 %THgb (0.4-20.1); Glucose Level-ABG 148.0 mg/dL (70-115); HCO3 ABG 33.2 mmol/L (22-26); Ionized Calcium Level - ABG 1.3 mmol/L (1.1-1.4); Methemoglobin 0.2 % (0.4-1.5); Oxygen Saturation ABG 94.3; PO2 ABG 67.3 mmHg (80.0-100.0); PO2 FiO2 Ratio Arterial Blood 168; Potassium Level - ABG 3.4 mmol/L (3.5-5.0); Sodium Level - ABG 147.0 mmol/L (131-143)
[2025-03-20 21:05] LABS: ABG PCO2 62.8 mmHg (35-45)
--- NOTE | 2025-03-20 21:39 | ECG_ITS ---
[facility] Test Date: 2025-03-20 Pat Name: Kristopher Jesus Department: Room: ICU04 Gender: Male Ciso: : 1958-02-28 Requested By: Miryam Santos Order Number: [id number] Reading MD: MIKAYLA ARROYO Measurements Intervals [place] Rate: 97 P: 0 NE: 0 QRS: 67 QRSD: 202 T: -60 QT: 439 QTc: 560 Interpretive Statements ATRIAL FIBRILLATION LEFT BUNDLE BRANCH BLOCK [120+ ms QRS DURATION, 80+ ms Q/S IN V1/V2, 85+ ms R IN I/aVL/V5/V6] Compared to ECG 03/20/2025 19:24:27 Ventricular premature complex(es) no longer present Aberrant conduction of supraventricular beat(s) no longer present Electronically Signed On 03-21-2025 16:53:13 CDT by MIKAYLA ARROYO [id number]
[2025-03-20 22:06] LABS: Troponin 5 2HR 65.55 ng/L (0-15)
[2025-03-20 22:09] LABS: Troponin 5 2HR Delta -5.45 ABS# (0-10)
[2025-03-20] MEDS: doxycycline 100 MG in sodium chloride 0.9% (plus) 100 ML IV (22:56)
[2025-03-20] MEDS: methylPREDNISolone sod succ 125 mg/2 mL INJ 60 MG IVP (22:57)
[2025-03-20] MEDS: pantoprazole 40 mg SDV IVP (22:58)
[2025-03-20] MEDS: FUROsemide 10 mg/mL SDV 4mL 40 MG IVP (22:58)
[2025-03-21] VITALS (89 sets, daily range): BP systolic 117–164; BP diastolic 57–102; PULSE 65–129; RESP 15–35; TEMP 36.3–36.8; O2SAT 82–100
--- NOTE | 2025-03-21 01:57 | ECG_ITS ---
[facility] Date: 2025-03-21 Pat Name: Kristopher Jesus Department: Room: ICU04 Gender: Male Sash Installer: : 1958-02-28 Requested By: Miryam Santos Order Number: [id number] Hamzah MD: MIKAYLA ARROYO Measurements Intervals [place] Rate: 74 P: 0 MI: 0 QRS: 51 QRSD: 202 T: 258 QT: 490 QTc: 546 Interpretive Statements ATRIAL FIBRILLATION WITH ABERRANT CONDUCTION OR VENTRICULAR PREMATURE COMPLEXES LEFT BUNDLE BRANCH BLOCK [120+ ms QRS DURATION, 80+ ms Q/S IN V1/V2, 85+ ms R IN I/aVL/V5/V6] Compared to ECG 03/20/2025 21:39:24 Ventricular premature complex(es) now present Aberrant conduction of supraventricular beat(s) now present Electronically Signed On 03-21-2025 16:53:22 CDT by MIKAYLA ARROYO [id number]
[2025-03-21 02:20] LABS: Hematocrit 24.5 % (37-53); Hemoglobin 7.00 g/dL (11.27-16.99); Mean Corpuscular HGB Conc 28.6 g/dL (30-55); Mean Corpuscular Hemoglobin 25.9 pg (27-33); Mean Corpuscular Volume 90.7 fl (82-101); Nucleated Red Blood Cells % 0 %; Platelet Count 148 10^3/cmm (157-399); Red Blood Count 2.70 10^6/uL (3.85-5.65); White Blood Count 5.27 10^3/uL (3.29-11.43)
[2025-03-21 02:39] LABS: Alanine Aminotransferase 7 U/L (0-41); Albumin Level 3.5 g/dL (3.5-5.2); Alkaline Phosphatase 55 U/L (40-130); Anion Gap 14.3 (5-19); Aspartate Amino Transferase 11 U/L (0-40); Blood Urea Nitrogen 36 mg/dL (8-23); Calcium 9.8 mg/dL (8.5-10.5); Carbon Dioxide 31 mmol/L (22-29); Chloride 102 mmol/L (98-107); Creatinine Clr Calc Pharmacy 69.4602; Globulin 2.8 g/dL (1.3-4.6); Glucose 138 mg/dL (65-115); Magnesium 1.6 mg/dL (1.7-2.3); Osmolality Calculated 309 mOsm/kg (285-295); Potassium 3.3 mmol/L (3.5-5.1); Sodium 144 mmol/L (136-145); Total Protein 6.3 g/dL (6.6-8.7)
[2025-03-21 02:41] LABS: Troponin 5 6HR 61.36 ng/L (0-15)
[2025-03-21 02:42] LABS: Troponin 5 6HR Delta -9.64 ng/L (0-12)
--- NOTE | 2025-03-21 03:42 | PC.NURSE ---
Potassium/Hgb Patient's hemoglobin decreased to 7.0 and potassium level decreased to 3.3. Dr. Cortez notified; orders received for 40 meq KCL PO once as well as a repeat CBC to verify results.
[2025-03-21 04:19] LABS: Hematocrit 26.0 % (37-53); Hemoglobin 7.30 g/dL (11.27-16.99); Mean Corpuscular HGB Conc 28.1 g/dL (30-55); Mean Corpuscular Hemoglobin 25.5 pg (27-33); Mean Corpuscular Volume 90.9 fl (82-101); Nucleated Red Blood Cells % 0 %; Platelet Count 165 10^3/cmm (157-399); Red Blood Count 2.86 10^6/uL (3.85-5.65); White Blood Count 4.46 10^3/uL (3.29-11.43)
[2025-03-21] MEDS: methylPREDNISolone sod succ 125 mg/2 mL INJ 60 MG IVP (05:56)
--- NOTE | 2025-03-21 08:08 | PC.PHAR ---
[facility] med list is void of 3 medications pt was taking in January and February. They are the following: Amlodipine 10mg daily 02/08/25 90ds Hydralazine 50mg tid 03/12/25 90ds-new rx Meloxicam 25mg daily 02/12/25 90ds Left message with pts' nurse to call back for confirmation that these meds were actually dc'd. 03/21/28
--- NOTE | 2025-03-21 08:16 | P.PN_ITS ---
Subjective 2 Subjective: 67-year-old male with recent h ospitalization from the to 04 March for CHF with iron deficiency anemia and sent home on diuretics furosemide 40 mg twice a day increased from 20 mg daily he has history of obstructive sleep apnea not wearing his CPAP and presented with altered mental status and pH 7.17 pCO2 86.1. He has improved with BiPAP diuresis overnight. Patient tells me he has had obstructive sleep apnea for about 30 years but does not have diabetes. He has not been wearing his CPAP. He was without thousand our machine in the past but he states he sold it for $500. Tells me that he has other machines at home including a portable but does have water tank etc. that he can have brought in. Patient was counseled regarding sleep apnea, cor pulmonale, leg edema and hypercapnic respiratory failure. Patient states he understands and would like to use CPAP or BiPAP both here and at the skilled nursing. He would like to return to the skilled nursing with treatment for his sleep apnea and hypercapnia. Additionally he wants to lose weight and is willing to follow diabetic weight loss diet. Patient states he needs his phone brought over so he can call a friend to bring his CPAP machine in. We discussed that I would set the machine so that he could use this at home or skilled nursing successfully. Patient reports his weight to be 390 pounds and a year ago was 360. Patient tells me his father is in his 90s and still living was close to 300 pounds and lost weight after he remarried and was involved. Vitals/I&O/Wt Last Vital Signs Temp 97.3 F L 03/21/25 06:00 Pulse 91 03/21/25 07:51 Resp 20 H 03/21/25 07:40 BP 117/71 03/21/25 06:15 Pulse Ox 98 03/21/25 07:51 O2 Del Method BiPAP 03/21/25 07:40 O2 Flow Rate 4 03/20/25 19:28 FiO2 40 03/21/25 07:51 03/20/25 03/21/25 03/21/25 22:59 06:59 14:59 Intake Total 100 / 100 Output Total 3425 / 3425 Balance -3325 / -3325 Weight last 48 hrs Weight 176.992 kg Weight 178.806 kg Weight 177.355 kg Physical Exam 2 Narrative: General well-developed morbidly obese male in no acute cardiopulmonary stress Oropharynx Mallampati 3 CV regular rate and rhythm Lungs crackles heard in both bases left greater than right Abdomen positive bowel sounds soft obese nontender Calves right leg 3+ edema left leg 3+ to 4 both with chronic venous stasis changes left worse than right see images Extremity: OTHER: Urinary Catheter Management: Menezes: Cath Placed During This Visit: no Reason for Continuing Indwelling Catheter: Accurate Measurement of Urinary Output in Critically Ill Patients Data 03/21/25 03:53 03/21/25 02:05 Micro: Microbiology 03/20/25 19:49 Blood Culture - Preliminary Blood SPECIMEN COLLECTED 03/20/25 19:45 Blood Culture - Preliminary Blood SPECIMEN COLLECTED A&P Assessment and plan 1. Acute hypoxic on chronic hypercapnic respiratory failure: Patient counseled and will use BiPAP all night and twice a day for 2 hours between meals. - Chest x-ray obtained and pending official report though did not see any pneumonia but patient is with CHF stop antibiotics - Patient on Menezes catheter for I and O's Discontinue steroids Patient will bring in his home CPAP machine which they will set up to parameters that should work and he will need to follow-up with sleep specialist if he can afford the visit 2. COPD exacerbation: No wheezing heard stop steroid 3. Acute exacerbation of CHF (congestive heart failure): Continue with BiPAP diuresis and switch to home machine which I believe is CPAP anticipate discharge in 2 days 4. Iron deficiency anemia: Will further discuss with patient options for looking at source of blood loss including EGD and colonoscopy. Patient is at increased risk due to morbid obesity with BMI 52.9 He is on chronic anticoagulation with Xarelto. He did receive iron infusions last visit. Will recheck iron studies this visit Continue proton pump inhibitor 5. Chronic atrial fibrillation: Continue patient amiodarone at home dose - Continue anticoagulation with Xarelto 6. Chronic hypoxic respiratory failure, on home oxygen therapy: Need to decrease oxygen support to maintain sats of only 88 to 91% per nasal cannula. He can be higher when on BiPAP and potentially also when on CPAP 7. Morbid obesity with BMI of 50.0-59.9, adult: Start 2000-calorie ADA weight loss diet no concentrated sweets juices caloric drinks desserts Plan: GI and DVT prophylaxis in place - Patient is on Protonix for PPI and also on Xarelto For DVT prophylaxis and also for patient atrial fibrillation PDMP PDMP Reviewed: Not Reviewed Attestations 2 Medical Necessity Statement*: Patient will be hospitalized for 2 additional midnights anticipate discharge home following diuresis Coding Level of Care Code 55074 Diagnoses Acute hypoxic on chronic hypercapnic respiratory failure J96.01; J96.12 COPD exacerbation J44.1 Acute exacerbation of CHF (congestive heart failure) I50.23 Iron deficiency anemia D50.9 Chronic atrial fibrillation I48.20 Chronic hypoxic respiratory failure, on home oxygen therapy J96.11; Z99.81 Morbid obesity with BMI of 50.0-59.9, adult E66.01; Z68.43 Time Spent (min) 50
[2025-03-21] MEDS: magnesium sulfate premix 2 GM/50 ML PIGGYBACK IV (08:34)
[2025-03-21] MEDS: FUROsemide 10 mg/mL SDV 4mL 40 MG IVP (11:14)
[2025-03-21 11:30] LABS: Iron 15 ug/dL (59-158); Total Iron Binding Capacity 276 mcg/dl; Unsaturated Iron Binding 261 ug/dL (112-347)
--- NOTE | 2025-03-21 18:28 | PC.NURSE ---
SHift SUmmary: Uneventful shift. Up to a chair for most of the day. Remains alert and oriented to person, place, time, and situation. Intake: 8824 Output: 7084
[2025-03-21] MEDS: FUROsemide 10 mg/mL SDV 4mL 80 MG IVP (18:51)
[2025-03-21] MEDS: iron sucrose 200 MG in sodium chloride 0.9% (100 ml) 100 ML 220 MG IV (18:52)
[2025-03-22] VITALS (35 sets, daily range): BP systolic 111–158; BP diastolic 59–128; PULSE 67–127; RESP 15–32; TEMP 36.6; O2SAT 89–97
[2025-03-22] MEDS: guaiFENesin 100 mg/5 mL UDC 10 mL 200 MG PO ×3 (01:28→19:50)
[2025-03-22 04:03] LABS: Hematocrit 25.1 % (37-53); Hemoglobin 7.60 g/dL (11.27-16.99); Mean Corpuscular HGB Conc 30.3 g/dL (30-55); Mean Corpuscular Hemoglobin 26.4 pg (27-33); Mean Corpuscular Volume 87.2 fl (82-101); Nucleated Red Blood Cells % 0 %; Platelet Count 187 10^3/cmm (157-399); Red Blood Count 2.88 10^6/uL (3.85-5.65); White Blood Count 7.39 10^3/uL (3.29-11.43)
[2025-03-22 04:22] LABS: Alanine Aminotransferase 6 U/L (0-41); Albumin Level 3.6 g/dL (3.5-5.2); Alkaline Phosphatase 52 U/L (40-130); Anion Gap 16.0 (5-19); Aspartate Amino Transferase 10 U/L (0-40); Blood Urea Nitrogen 43 mg/dL (8-23); Calcium 10.1 mg/dL (8.5-10.5); Carbon Dioxide 32 mmol/L (22-29); Chloride 98 mmol/L (98-107); Creatinine Clr Calc Pharmacy 61.7667; Globulin 2.9 g/dL (1.3-4.6); Glucose 147 mg/dL (65-115); Magnesium 1.7 mg/dL (1.7-2.3); Osmolality Calculated 310 mOsm/kg (285-295); Potassium 3.0 mmol/L (3.5-5.1); Sodium 143 mmol/L (136-145); Total Protein 6.5 g/dL (6.6-8.7)
[2025-03-22] MEDS: FUROsemide 10 mg/mL SDV 4mL 80 MG IVP ×2 (05:27→18:07)
--- NOTE | 2025-03-22 13:53 | PC.SOCIAL ---
IMM UPDATED IMM dated and initialed, copy given to patient and placed in chart.
--- NOTE | 2025-03-22 13:55 | PM.PN ---
Subjective Subjective: 67-year-old male with recent hospitalization from the to 04 March for CHF with iron deficiency anemia and sent home on diuretics furosemide 40 mg twice a day increased from 20 mg daily he has history of obstructive sleep apnea not wearing his CPAP and presented with altered mental status and pH 7.17 pCO2 86.1. He has improved with BiPAP diuresis overnight. Patient tells me that he did not sleep at all last night and did not wear his CPAP machine from home or the BiPAP machine from here. He states that the male respiratory therapist was negative about the CPAP machine and even the BiPAP machine and concerned the patient regarding suffocating with the machine on. For that reason patient states he was scared and stayed up watching TV all night. RT Crawford documented the patient stated he does not sleep at night and will likely sleep in the morning and that the patient was again asleep and was going to play on his phone.. I spoke with Krystyna the ceo & board director. I have asked her to interviewed the patient. I have asked that the patient be placed on BiPAP at night whether he is awake or asleep throughout the night as well as 2 hours between breakfast and lunch and 2 hours between lunch and dinner. Patient is here for BiPAP diuresis and every effort should be made to have him comply with BiPAP diuresis. Additionally have asked that a different therapist see the patient as last night's relationship between the patient and therapist was not therapeutic. Patient told me that he was scared after counseling from last night's therapist I reiterated how BiPAP works for sleep apnea and that we are trying his CPAP so that he will have something that will work upon discharge so that he does not come in and acute hypercapnic respiratory failure once again. We are compromising in my adjusting his machine so that we have something that we will hopefully work enough for him to succeed upon discharge prior to him following up formally with sleep specialist. Vitals/I&O/Wt Last Vital Signs Temp 97.8 F 03/22/25 00:00 Pulse 93 03/22/25 12:28 Resp 18 03/22/25 12:28 BP 139/81 03/22/25 08:00 Pulse Ox 97 03/22/25 12:28 O2 Del Method Nasal Cannula 03/22/25 12:28 O2 Flow Rate 3 03/22/25 12:28 FiO2 21 03/21/25 23:56 03/21/25 03/22/25 03/22/25 22:59 06:59 14:59 Intake Total 785 / 1385 150 / 1535 120 / 120 Output Total 1025 / 1825 2600 / 4425 1500 / 1500 Balance -240 / -440 -2450 / -2890 -1380 / -1380 Weight last 48 hrs Weight 176.992 kg Weight 178.806 kg Weight 177.355 kg Physical Exam Narrative: General well-developed morbidly obese male in no acute cardiopulmonary stress Oropharynx Mallampati 3 CV regular rate and rhythm Lungs crackles heard in both bases left greater than right Abdomen positive bowel sounds soft obese nontender Calves right leg 3+ edema left leg 3+ to 4 both with chronic venous stasis changes left worse than right Urinary Catheter Management: Menezes: Cath Placed During This Visit: no Reason for Continuing Indwelling Catheter: Accurate Measurement of Urinary Output in Critically Ill Patients Data 03/22/25 03:45 03/22/25 03:45 Micro: Microbiology 03/20/25 19:49 Blood Culture - Preliminary Blood NEGATIVE TO DATE 03/20/25 19:45 Blood Culture - Preliminary Blood NEGATIVE TO DATE A&P Assessment and plan 1. Acute hypoxic on chronic hypercapnic respiratory failure: Patient counseled and will use BiPAP all night and twice a day for 2 hours between meals. After last night's noncompliance patient was counseled and respiratory therapy staff were instructed that the patient absolutely needs to wear his CPAP or BiPAP 2 hours a day between meals and all night. He can wear it at night whether he is sleeping or not sleeping. This will promote diuresis and he needs to lose about 25 pounds of fluid. Additional 25 minutes spent troubleshooting patient's noncompliance as well as stressing the importance to respiratory therapy that this patient be treated with noninvasive positive pressure support for diuresis 2. COPD exacerbation: No wheezing heard stop steroid 3. Acute exacerbation of CHF (congestive heart failure): Continue with BiPAP diuresis and switch to home machine which I believe is CPAP anticipate discharge in 2 days. This was held up so we will be an additional 2 days given that the patient did not use his CPAP or BiPAP for diuresis last night 4. Iron deficiency anemia: Will further discuss with patient options for looking at source of blood loss including EGD and colonoscopy. Patient is at increased risk due to morbid obesity with BMI 52.9 He is on chronic anticoagulation with Xarelto. He did receive iron infusions last visit. Will recheck iron studies this visit Continue proton pump inhibitor 5. Chronic atrial fibrillation: Continue patient amiodarone at home dose - Continue anticoagulation with Xarelto 6. Chronic hypoxic respiratory failure, on home oxygen therapy: Need to decrease oxygen support to maintain sats of only 88 to 91% per nasal cannula. He can be higher when on BiPAP and potentially also when on CPAP 7. Morbid obesity with BMI of 50.0-59.9, adult: Start 2000-calorie ADA weight loss diet no concentrated sweets juices caloric drinks desserts Plan: GI and DVT prophylaxis in place - Patient is on Protonix for PPI and also on Xarelto For DVT prophylaxis and also for patient atrial fibrillation PDMP PDMP Reviewed: Not Reviewed Attestations Medical Necessity Statement*: Patient remains in hospital for CPAP and BiPAP diuresis anticipate discharge home in 2 days Coding Level of Care Code Acute Code for [facility] Fwd Diagnoses Acute hypoxic on chronic hypercapnic respiratory failure J96.01; J96.12 COPD exacerbation J44.1 Acute exacerbation of CHF (congestive heart failure) I50.23 Heart failure type: systolic Iron deficiency anemia D50.9 Chronic atrial fibrillation I48.20 Chronic hypoxic respiratory failure, on home oxygen therapy J96.11; Z99.81 Morbid obesity with BMI of 50.0-59.9, adult E66.01; Z68.43 Time Spent (min) 55
--- NOTE | 2025-03-22 14:28 | PC.PT ---
[id number] Physical Therapy attempted to see pt. He is currently supine in bed with BiPap on and will not respond to visitor that is trying to wake him. Nursing reports that pt was in his chair all evening and all night, she only recently got pt back to bed this morning. Nursing reports that it would not be appropriate for pt to get up to chair at this time but maybe later. Nursing also relates that pt has self reported that he does not stand at SNF. Pt would not wake in order to report his own PLOF. Will reattempt as able. Case management made aware of same.
--- NOTE | 2025-03-22 15:09 | PC.NURSE ---
Pt called to this nurse and stated that I need to see why his SCD's were not working. SCD's were on patient and working properly. When I told patient they were working correctly he said, well they better be or my doctor is going to yell at you.
[2025-03-22] MEDS: iron sucrose 200 MG in sodium chloride 0.9% (100 ml) 100 ML 220 MG IV (18:06)
[2025-03-22 19:17] LABS: Glucose Urine UA Negative (Normal); Nitrate Urine Negative (Negative); Specific Gravity, Urine 1.009 (1.005-1.030)
[2025-03-22 19:32] LABS: UA Manual Slide Review YES
--- NOTE | 2025-03-22 21:55 | PC.NURSE ---
Addendum entered by Pili Sahni RN 03/23/25 05:18: 0509: CPAP removed for morning med pass Addendum entered by Pili Sahni RN 03/23/25 00:37: 0037: CPAP reapplied. SpO2 94% Addendum entered by Pili Sahni RN 03/23/25 00:03: Midnight: CPAP removed @0002 per instance of patient. Discussed taking a 30 minute break and reapplying CPAP. Pt on 1.5L NC. Original Note: CPAP: RT/RN @bedside, pt was hesitant to wear CPAP- we discussed his plan of care and his doctors orders. Pt agreed to wear CPAP for a couple hours. CPAP applied @2417.
[2025-03-23] VITALS (33 sets, daily range): BP systolic 104–150; BP diastolic 58–101; PULSE 68–115; RESP 12–23; TEMP 36.4–37.2; O2SAT 90–98
[2025-03-23 04:23] LABS: Hematocrit 27.6 % (37-53); Hemoglobin 7.70 g/dL (11.27-16.99); Mean Corpuscular HGB Conc 27.9 g/dL (30-55); Mean Corpuscular Hemoglobin 25.6 pg (27-33); Mean Corpuscular Volume 91.7 fl (82-101); Nucleated Red Blood Cells % 0 %; Platelet Count 186 10^3/cmm (157-399); Red Blood Count 3.01 10^6/uL (3.85-5.65); White Blood Count 7.47 10^3/uL (3.29-11.43)
[2025-03-23 04:43] LABS: Alanine Aminotransferase 6 U/L (0-41); Albumin Level 3.3 g/dL (3.5-5.2); Alkaline Phosphatase 50 U/L (40-130); Anion Gap 14.9 (5-19); Aspartate Amino Transferase 8 U/L (0-40); Blood Urea Nitrogen 46 mg/dL (8-23); Calcium 9.7 mg/dL (8.5-10.5); Carbon Dioxide 35 mmol/L (22-29); Chloride 97 mmol/L (98-107); Globulin 2.6 g/dL (1.3-4.6); Glucose 96 mg/dL (65-115); Magnesium 1.5 mg/dL (1.7-2.3); Osmolality Calculated 310 mOsm/kg (285-295); Sodium 144 mmol/L (136-145); Total Protein 5.9 g/dL (6.6-8.7)
[2025-03-23 04:53] LABS: Creatinine Clr Calc Pharmacy 78.2379
[2025-03-23 04:55] LABS: Potassium 2.9 mmol/L (3.5-5.1)
[2025-03-23 07:30] LABS: Potassium 3.2 mmol/L (3.5-5.1)
[2025-03-23] MEDS: guaiFENesin 100 mg/5 mL UDC 10 mL 200 MG PO (07:37)
[2025-03-23] MEDS: FUROsemide 10 mg/mL SDV 4mL 80 MG IVP ×2 (08:24→17:39)
--- NOTE | 2025-03-23 08:34 | P.PN_ITS ---
Subjective 2 Subjective: 67-year-old male with recent h ospitalization from the to 04 March for CHF with iron deficiency anemia and sent home on diuretics furosemide 40 mg twice a day increased from 20 mg daily he has history of obstructive sleep apnea not wearing his CPAP and presented with altered mental status and pH 7.17 pCO2 86.1. Patient did not use CPAP at home. Patient had good response to BiPAP diuresis night of admission and after extensive counseling over the last 2 days we did successfully use his 's repurposed CPAP at settings as follows APAP 11.5-13.5 with flex of 3 no ramp and oxygen bleed to keep sats 90%. Patient had an AHI of only 0.7 last night. Patient states he feels great and did great. Leg swelling is much decreased. Nadine Orozco's patient's daytime RT is present at bedside and we discussed that patient's usage of CPAP at above settings last night 6.44 hours with AHI of only 0.7 is very good. I notified the patient that he has iron deficiency anemia and the source needs to be found. Patient states he had a colonoscopy in the remote past and EGD more recently. Per Dr. Stout's note colonoscopy was 2021 with 5-year interval and EGD 02/26/2025 moderate acute gastritis in the prepyloric area no active bleeding at the time. Patient was on blood thinners so no biopsies were done Patient with A-fib and V. tach in the past underwent selective coronary angiogram by Dr. Cristobal and 2021 coronary artery disease essentially clear Vitals/I&O/Wt Last Vital Signs Temp 98.7 F 03/23/25 08:00 Pulse 94 03/23/25 08:24 Resp 18 03/23/25 08:24 BP 134/70 03/23/25 08:00 Pulse Ox 92 03/23/25 08:24 O2 Del Method Nasal Cannula 03/23/25 08:24 O2 Flow Rate 1.5 03/23/25 08:24 FiO2 21 03/21/25 23:56 03/22/25 03/23/25 03/23/25 22:59 06:59 14:59 Intake Total 850 / 1210 350 / 1560 Output Total 4175 / 5675 3000 / 8675 Balance -3325 / -4465 -2650 / -7115 Weight last 48 hrs Weight 169.916 kg Physical Exam 2 Narrative: General well-developed morbidly obese male in no acute cardiopulmonary stress CV mildly irregular but rate is controlled no loud murmur Lungs crackles heard in left lung base right lung is clear air movement improved Abdomen positive bowel sounds soft obese nontender Calves right leg 3-3+ leg edema there is significant dorsal foot edema Mentation alert and oriented x 3 Mood and affect good he is very cooperative Urinary Catheter Management: Menezes: Cath Placed During This Visit: no Reason for Continuing Indwelling Catheter: Accurate Measurement of Urinary Output in Critically Ill Patients Data 03/23/25 03:53 03/23/25 07:01 A&P Assessment and plan 1. Acute hypoxic on chronic hypercapnic respiratory failure: Patient is wearing APAP settings 11.5-13.5 with flex of 3 O2 bleed to keep sats 90% and he wore it for 6.44 hours with AHI of only 0.7 last night patient diuresed 8675 cc yesterday and is cumulative -14 Liters this admission 2. Acute exacerbation of CHF (congestive heart failure): We have started him on his home APAP machine and that is going well. Anticipate discharge home in 1 to 2 days at this time he is requiring close potassium monitoring anticipate continued IV diuresis today switch to oral diuresis tomorrow and home on Tuesday [facility] 3. Iron deficiency anemia: Will further discuss with patient options for looking at source of blood loss including EGD and colonoscopy. Patient is at increased risk due to morbid obesity with BMI 52.9 He is on chronic anticoagulation with Xarelto. He did receive iron infusions last visit. Will recheck iron studies this visit Continue proton pump inhibitor . Patient had EGD 2024 showing moderate gastritis. He also had colonoscopy around 2021. Patient and I discussed that we need to get his heart failure, fluid overload and mobility all improved so that he can have a safe EGD and colonoscopy off anticoagulation and that intervention for any worrisome findings would require those improvements for safety anyways 4. Chronic atrial fibrillation: Increase amiodarone to 400 mg twice a day patient is being diuresed. He has moderately increased left atrial size. Hopefully this will improve with diuresis as on last echo 02/26/2025 patient had severely elevated filling pressures grade 3/6 diastolic dysfunction and LVH with a EF of 58% - Continue anticoagulation with Xarelto 5. Chronic hypoxic respiratory failure, on home oxygen therapy: Continue to limit oxygen support to maintain sats of only 88 to 91% per nasal cannula. He can be higher when on when on CPAP though still recommend maintaining sats around 90% due to significant CO2 retention 6. Morbid obesity with BMI of 50.0-59.9, adult: Start 2000-calorie ADA weight loss diet no concentrated sweets juices caloric drinks desserts Patient has been actively refusing sugared drinks that are still coming and congratulated on his commitment to change Plan: GI and DVT prophylaxis in place - Patient is on Protonix for PPI and also on Xarelto For DVT prophylaxis and also for patient atrial fibrillation PDMP PDMP Reviewed: Not Reviewed Attestations 2 Medical Necessity Statement*: Patient katlin in hospital for diuresis and close monitoring of hypokalemia hypophosphatemia and hypomagnesemia with diuresis and expected to require 2 additional midnights Coding Level of Care Code 17789 Diagnoses Acute hypoxic on chronic hypercapnic respiratory failure J96.01; J96.12 Acute exacerbation of CHF (congestive heart failure) I50.23 Heart failure type: systolic Iron deficiency anemia D50.9 Chronic atrial fibrillation I48.20 Chronic hypoxic respiratory failure, on home oxygen therapy J96.11; Z99.81 Morbid obesity with BMI of 50.0-59.9, adult E66.01; Z68.43 Time Spent (min) 50
--- NOTE | 2025-03-23 08:40 | PC.NURSE ---
Verbal order from Dr. Nash to give 80 lasix am ordered dose, 40k PO, and an additional one time dose of potassium 40 PO, patients K is 3.2 on AM check.
[2025-03-23] MEDS: polyethylene glycol 3350 Pkt 17 gm PO (09:14)
[2025-03-23] MEDS: magnesium sulfate premix 4 GM/100 ML PREMIX IV (09:39)
--- NOTE | 2025-03-23 10:04 | PC.NURSE ---
At this time, patient is refusing second IV. Magnesium sulfate running now, Will administer potassium phosphate when this is finished. Warm blanket applied to IV site as patient reports feeling cold.
[2025-03-23] MEDS: potassium phosphate (mMol PO4) 15 MMOL in sodium chloride 0.9% (100 ml) 100 ML 47 MMOL IV (11:43)
[2025-03-23 12:35] LABS: Anion Gap 16.7 (5-19); Blood Urea Nitrogen 48 mg/dL (8-23); Calcium 9.9 mg/dL (8.5-10.5); Carbon Dioxide 35 mmol/L (22-29); Chloride 96 mmol/L (98-107); Creatinine Clr Calc Pharmacy 76.3509; Glucose 102 mg/dL (65-115); Osmolality Calculated 311 mOsm/kg (285-295); Potassium 3.7 mmol/L (3.5-5.1); Sodium 144 mmol/L (136-145)
--- NOTE | 2025-03-23 15:40 | PC.NURSE ---
Progress note: Patient is off CPAP during AM bedside shift report,on 1.5L NC and tolerating well. Patient states he is fully educated on his fluid restriction, requests coffee. In the AM patient refuses to work with PT to get up to chair, says he will do that later. Formed a plan with lorna to wait until after visitor comes to get to chair and wear CPAP, Patient agrees with this plan. Patient refused chair, did stand at the bedsdie with physical therapy using sit to stand device. Patient in bed, refused CPAP stating Dr. Nash told him if he worked with PT he did not have to wear it before lunch. This nurse educated on importance of folowing plan of care and cited his improvement with this plan, however patient still refuses CPAP before lunch. Patient states he promises to wear it after lunch. Patient did wear CPAP after lunch for a few hours. Transferred to C[facility] room 105. Intake:600ml Output:3950ml
[2025-03-23 20:44] LABS: Anion Gap 14.4 (5-19); Blood Urea Nitrogen 49 mg/dL (8-23); Calcium 9.7 mg/dL (8.5-10.5); Carbon Dioxide 38 mmol/L (22-29); Chloride 95 mmol/L (98-107); Glucose 121 mg/dL (65-115); Osmolality Calculated 310 mOsm/kg (285-295); Potassium 4.4 mmol/L (3.5-5.1); Sodium 143 mmol/L (136-145)
[2025-03-23] MEDS: iron sucrose 200 MG in sodium chloride 0.9% (100 ml) 100 ML 220 MG IV (20:58)
[2025-03-23 20:59] LABS: Creatinine Clr Calc Pharmacy 67.3685
[2025-03-24] VITALS (16 sets, daily range): BP systolic 106–129; BP diastolic 59–74; PULSE 90–106; RESP 14–21; TEMP 36.6–36.8; O2SAT 84–95; BMI 48.0
[2025-03-24 03:24] LABS: Anion Gap 13.9 (5-19); Blood Urea Nitrogen 45 mg/dL (8-23); Calcium 10.0 mg/dL (8.5-10.5); Carbon Dioxide 38 mmol/L (22-29); Chloride 95 mmol/L (98-107); Glucose 94 mg/dL (65-115); Magnesium 1.9 mg/dL (1.7-2.3); Osmolality Calculated 307 mOsm/kg (285-295); Potassium 3.9 mmol/L (3.5-5.1); Sodium 143 mmol/L (136-145)
[2025-03-24 03:25] LABS: Creatinine Clr Calc Pharmacy 71.5790
--- NOTE | 2025-03-24 04:00 | XRR_ITS ---
PROCEDURE INFORMATION: Exam: XR Chest Exam date and time: 03/24/2025 2:06 AM Age: 67 years old Clinical indication: Shortness of breath; Additional info: Follow up congestive heart failure TECHNIQUE: Imaging protocol: Radiologic exam of the chest. Views: 1 view. COMPARISON: CR (CHEST, ) 03/20/2025 8:11 PM FINDINGS: Lungs: Interval decrease in diffuse interstitial prominence, which may represent decreased pulmonary edema or resolving interstitial pneumonia. No confluent consolidation. Pleural spaces: Unremarkable. No pleural effusion. No pneumothorax. Heart/Mediastinum: The heart is mildly enlarged for the AP view, which may be artifactual or represent a component of mild cardiomegaly. Bones/joints: Unremarkable. XR/XR chest 1V portable [id number] IMPRESSION: Interval decrease in diffuse interstitial prominence, which may represent decreased pulmonary edema or resolving interstitial pneumonia.
[2025-03-24] MEDS: guaiFENesin 100 mg/5 mL UDC 10 mL 200 MG PO ×2 (05:48→16:44)
--- NOTE | 2025-03-24 09:28 | P.PN_ITS ---
Subjective 2 Subjective: 67-year-old male with recent h ospitalization from the to 04 March for CHF with iron deficiency anemia and sent home on diuretics furosemide 40 mg twice a day increased from 20 mg daily he has history of obstructive sleep apnea not wearing his CPAP and presented with altered mental status and pH 7.17 pCO2 86.1. Patient did not use CPAP at home. Patient had good response to BiPAP diuresis night of admission and after extensive counseling over the last 3 days we did successfully use his 's repurposed CPAP at settings as follows APAP 11.5-13.5 with flex of 3 no ramp and oxygen bleed to keep sats 90%. Patient had an AHI of only 0.7 last night. Patient states he feels great and did great. Leg swelling is much decreased and patient is down 21 L which equates to 46 pounds of water. Utilizing patient's repurposed home CPAP last night 7 hours with AHI of only 2.3 is very good. I notified the patient that he has iron deficiency anemia and the source needs to be found. Patient states he had a colonoscopy in the remote past and EGD more recently. Per Dr. Stout's note colonoscopy was 2021 with 5-year interval and EGD 02/26/2025 moderate acute gastritis in the prepyloric area no active bleeding at the time. Patient was on blood thinners so no biopsies were done Patient with A-fib and V. tach in the past underwent selective coronary angiogram by Dr. Cristobal and 2021 coronary artery disease essentially clear Vitals/I&O/Wt Last Vital Signs Temp 97.9 F 03/24/25 07:37 Pulse 95 03/24/25 08:05 Resp 16 03/24/25 08:05 BP 114/73 03/24/25 07:37 Pulse Ox 95 03/24/25 08:05 O2 Del Method Nasal Cannula 03/24/25 08:05 O2 Flow Rate 1 03/24/25 08:05 FiO2 21 03/21/25 23:56 03/23/25 03/24/25 03/24/25 22:59 06:59 14:59 Intake Total 720 / 1165 110 / 1275 Output Total 4500 / 6650 2400 / 9050 Balance -3780 / -5485 -2290 / -7775 Weight last 48 hrs Weight 160.753 kg Weight 169.916 kg Physical Exam 2 Narrative: General well-developed morbidly obese male in no acute cardiopulmonary stress Oral Mallampati 3 CV mildly irregular but rate is controlled no loud murmur Lungs mild crackles heard in right lung base air movement improved Abdomen positive bowel sounds soft obese nontender Calves bilateral 2+ edema markedly improved dorsal foot edema down to 2+ is 1 Mentation alert and oriented x 3 Mood and affect good he is very cooperative Extremity: NARRATIVE EXTREMITY EXAM: Urinary Catheter Management: Menezes: Cath Placed During This Visit: no Reason for Continuing Indwelling Catheter: Other Data 03/23/25 03:53 03/24/25 02:37 A&P Assessment and plan 1. Acute hypoxic on chronic hypercapnic respiratory failure: Patient is wearing APAP settings 11.5-13.5 with flex of 3 O2 bleed to keep sats 90% and he wore it for 7+ hours with AHI of only 2.3 last night patient diuresed 8675 cc yesterday and is cumulative - 21 liters this admission 2. Acute exacerbation of CHF (congestive heart failure): We have started him on his home APAP machine and that is going well. Anticipate discharge home tomorrow. Patient has been on high dose furosemide 80 mg twice daily plus Zaroxolyn 5 mg daily and potassium chloride 80 mEq every 6 hours till last night Overnight I have adjusted him to furosemide 80 mg twice a day orally and Zaroxolyn 2.5 mg starting tomorrow (he already received 5 mg this morning) and potassium down to 40 mEq 3 times daily. Will further adjust if his every 8 hour labs indicate a need for change Because of heart rate still being high despite amiodarone increased to 400 g twice a day and blood pressure being a little soft I am stopping the Coreg and changing him into metoprolol 50 mg daily 3. Iron deficiency anemia: Will further discuss with patient options for looking at source of blood loss including EGD and colonoscopy. Patient is at increased risk due to morbid obesity with BMI 52.9 He is on chronic anticoagulation with Xarelto. He did receive iron infusions last visit. Will recheck iron studies this visit Continue proton pump inhibitor . Patient had EGD 2024 showing moderate gastritis. He also had colonoscopy around 2021. Patient and I discussed that we need to get his heart failure, fluid overload and mobility all improved so that he can have a safe EGD and colonoscopy off anticoagulation and that intervention for any worrisome findings would require those improvements for safety anyways 4. Chronic atrial fibrillation: Increase amiodarone to 400 mg twice a day patient is being diuresed. He has moderately increased left atrial size. Hopefully this will improve with diuresis as on last echo 02/26/2025 patient had severely elevated filling pressures grade 3/6 diastolic dysfunction and LVH with a EF of 58% - Continue anticoagulation with Xarelto Stop Coreg. I had increased it to 6.25 mg twice a day but the patient's blood pressure was a little soft so that stopped and he will be on metoprolol 50 mg XL daily and amiodarone 400 mg twice a day. Magnesium 4 mg twice a day and potassium and diuresis as above. Patient is interested in cardioversion but I do not think he is ready for that yet. 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 5. Chronic hypoxic respiratory failure, on home oxygen therapy: Continue to limit oxygen support to maintain sats of only 88 to 91% per nasal cannula. He can be higher when on when on CPAP though still recommend maintaining sats around 90% due to significant CO2 retention 6. Morbid obesity with BMI of 50.0-59.9, adult: Start 2000-calorie ADA weight loss diet no concentrated sweets juices caloric drinks desserts Patient has been actively refusing sugared drinks that are still coming and congratulated on his commitment to change Patient was diuresed down to 353.5 from 390 on admission. Plan: GI and DVT prophylaxis in place - Patient is on Protonix for PPI and also on Xarelto For DVT prophylaxis and also for patient atrial fibrillation PDMP PDMP Reviewed: Not Reviewed Attestations 2 Medical Necessity Statement*: Patient will remain in the hospital to determine oral diuretic dose further diuresis based on today's x-ray and anticipate discharge tomorrow or the next day back to [place] Coding Level of Care Code 48877 Diagnoses Acute hypoxic on chronic hypercapnic respiratory failure J96.01; J96.12 Acute exacerbation of CHF (congestive heart failure) I50.23 Heart failure type: systolic Iron deficiency anemia D50.9 Chronic atrial fibrillation I48.20 Chronic hypoxic respiratory failure, on home oxygen therapy J96.11; Z99.81 Morbid obesity with BMI of 50.0-59.9, adult E66.01; Z68.43 Time Spent (min) 45
[2025-03-24] MEDS: metoprolol succinate ER (24 HR) 50 mg Tablet PO (11:04)
[2025-03-24 12:14] LABS: Anion Gap 15.8 (5-19); Blood Urea Nitrogen 52 mg/dL (8-23); Calcium 9.6 mg/dL (8.5-10.5); Carbon Dioxide 37 mmol/L (22-29); Chloride 92 mmol/L (98-107); Creatinine Clr Calc Pharmacy 69.2883; Glucose 113 mg/dL (65-115); Osmolality Calculated 307 mOsm/kg (285-295); Potassium 3.8 mmol/L (3.5-5.1); Sodium 141 mmol/L (136-145)
[2025-03-24] MEDS: iron sucrose 200 MG in sodium chloride 0.9% (100 ml) 100 ML 220 MG IV (19:56)
[2025-03-25 03:49] VITALS: BP 119/93; PULSE 94; RESP 21; TEMP 37; O2SAT 95
[2025-03-25 05:20] VITALS: PULSE 98
[2025-03-25 05:33] LABS: Hematocrit 27.3 % (37-53); Hemoglobin 8.20 g/dL (11.27-16.99); Mean Corpuscular HGB Conc 30.0 g/dL (30-55); Mean Corpuscular Hemoglobin 26.0 pg (27-33); Mean Corpuscular Volume 86.7 fl (82-101); Nucleated Red Blood Cells % 0 %; Platelet Count 174 10^3/cmm (157-399); Red Blood Count 3.15 10^6/uL (3.85-5.65); White Blood Count 6.39 10^3/uL (3.29-11.43)
[2025-03-25] MEDS: metoprolol succinate ER (24 HR) 50 mg Tablet PO (05:48)
[2025-03-25 05:52] LABS: Anion Gap 15.8 (5-19); Blood Urea Nitrogen 49 mg/dL (8-23); Calcium 9.7 mg/dL (8.5-10.5); Carbon Dioxide 39 mmol/L (22-29); Chloride 89 mmol/L (98-107); Glucose 104 mg/dL (65-115); Osmolality Calculated 303 mOsm/kg (285-295); Potassium 3.8 mmol/L (3.5-5.1); Sodium 140 mmol/L (136-145)
[2025-03-25 06:01] LABS: Creatinine Clr Calc Pharmacy 61.6702
[2025-03-25 07:12] VITALS: BP 91/67; PULSE 111; RESP 19; TEMP 37.3; O2SAT 92
[2025-03-25 08:41] VITALS: PULSE 107; RESP 18; O2SAT 93
--- NOTE | 2025-03-25 09:30 | PM.DCS ---
Discharge Providers Date of Admission: 03/20/25 19:55 Date of Discharge: March 25, 2025 Attending Provider at Admission: Liza Cortez MD Attending Provider at Discharge: Esla Harrison MD Primary Care Provider: Brent Samuel MD Diagnoses at Discharge Discharge Diagnosis 1. Acute hypoxic on chronic hypercapnic respiratory failure: 2. Acute exacerbation of CHF (congestive heart failure): 3. Iron deficiency anemia: 4. Chronic atrial fibrillation: 5. Chronic hypoxic respiratory failure, on home oxygen therapy: 6. Morbid obesity with BMI of 50.0-59.9, adult: Reason for Visit Reason for Visit: sob Hospital Course Hospital Course 67-year-old male with recent hospitalization from the to 04 March for CHF with iron deficiency anemia and sent home on diuretics furosemide 40 mg twice a day increased from 20 mg daily he has history of obstructive sleep apnea not wearing his CPAP and presented with altered mental status and pH 7.17 pCO2 86.1. he had been non compliant with lasix . Patient did not use CPAP at home.Patient had good response to BiPAP and iv diuresis during admission course. Leg swelling is much decreased and patient is down 21 L which equates to 46 pounds of water. Patient has been on high dose furosemide 80 mg twice daily plus Zaroxolyn 2.5 mg daily and tolerated well. Cr stable at 1.8. He is being discharged to SNF Physical Exam Narrative: General: No acute distress, AO x3 HEENT: PERRLA, pupils bilaterally equal and reactive, pallors not present Chest: Normal vesicular breath sounds, no added sounds, equal good air entry bilaterally CVS: S1-S2 regular, no murmurs, no tachycardia, no gallops, no rubs Abdomen: Soft, nontender, no organomegaly, bowel sounds present Neuro: No focal deficits, no facial deformity, AO x3, power 5/5 in all limbs Urinary Catheter Management: Menezes: Cath Placed During This Visit: no Reason for Continuing Indwelling Catheter: Other Discharge Data Studies Completed and Pending Completed Studies During Hospitalization Category Date Time Status XR chest 1V portable [id number] Routine Exams 03/24/25 04:00 Completed XR chest 1V portable [id number] Stat Exams 03/20/25 19:25 Completed Pending at discharge Category Date Time Status Blood Culture Stat Lab 03/20/25 19:49 Results Occult Blood Stool [Immunochemical Fecal OCB] Routine Lab 03/21/25 18:30 Uncollected Radiology Impressions Chest X-Ray 03/24/25 04:00 IMPRESSION: Interval decrease in diffuse interstitial prominence, which may represent decreased pulmonary edema or resolving interstitial pneumonia. Laboratory Results WBC 6.39 10^3/uL (3.29-11.43) 03/25/25 04:44 RBC 3.15 10^6/uL (3.85-5.65) L 03/25/25 04:44 Hgb 8.20 g/dL (11.27-16.99) L 03/25/25 04:44 Hct 27.3 % (37-53) L 03/25/25 04:44 MCV 86.7 fl (82-101) 03/25/25 04:44 MCH 26.0 pg (27-33) L 03/25/25 04:44 MCHC 30.0 g/dL (30-55) 03/25/25 04:44 RDW 20.5 % (12.1-15.1) H 03/25/25 04:44 Plt Count 174 10^3/cmm (157-399) 03/25/25 04:44 MPV 9.4 fL (7.4-10.4) 03/25/25 04:44 Neut % (Auto) 80.7 % 03/25/25 04:44 Lymph % (Auto) 7.7 % 03/25/25 04:44 [place] % (Auto) 6.7 % 03/25/25 04:44 Eos % (Auto) 4.2 % 03/25/25 04:44 Baso % (Auto) 0.2 % 03/25/25 04:44 Neut # (Auto) 5.16 10^3/uL (1.8-7.7) 03/25/25 04:44 Lymph # (Auto) 0.5 10^3/uL (0.8-4.8) L 03/25/25 04:44 [place] # (Auto) 0.4 10^3/uL (0.2-0.9) 03/25/25 04:44 Eos # (Auto) 0.3 10^3/uL (0.0-0.8) 03/25/25 04:44 Baso # (Auto) 0.0 10^3/uL (0.0-0.1) 03/25/25 04:44 Nucleated RBC % (auto) 0 % 03/25/25 04:44 Nucleated RBCs # 0.0 /100WBC 03/25/25 04:44 Specimen Type Arterial 03/20/25 20:50 Sample Site Radial, left 03/20/25 20:50 ABG pH 7.33 (7.35-7.45) L 03/20/25 20:50 ABG pCO2 62.8 mmHg (35-45) H* 03/20/25 20:50 ABG pO2 67.3 mmHg (80.0-100.0) L 03/20/25 20:50 ABG PO2/FiO2 Ratio 168 03/20/25 20:50 ABG HCO3 33.2 mmol/L (22-26) H 03/20/25 20:50 ABG O2 Saturation 94.3 03/20/25 20:50 ABG Base Excess 6.3 mmol/L (-2.0-2.0) H 03/20/25 20:50 Melvin Test Pos 03/20/25 20:50 A-a O2 Gradient 18.9 mmHg (5-10) H 03/20/25 20:50 Hematocrit 23.6 % (42-52) L 03/20/25 20:50 Hgb O2 Saturation 91.8 % (95-100) L 03/20/25 20:50 Carboxyhemoglobin 2.5 %THgb (0.4-20.1) 03/20/25 20:50 Methemoglobin 0.2 % (0.4-1.5) L 03/20/25 20:50 Total Hemoglobin 7.7 g/dL (14-18) L 03/20/25 20:50 Sodium 147.0 mmol/L (131-143) H 03/20/25 20:50 Potassium 3.4 mmol/L (3.5-5.0) L 03/20/25 20:50 Glucose 148.0 mg/dL (70-115) H 03/20/25 20:50 Ionized Calcium 1.3 mmol/L (1.1-1.4) 03/20/25 20:50 O2 Delivery Device Bipap 03/20/25 20:50 O2 Liters/Min 6.0 % 03/20/25 19:33 FiO2 40.0 % 03/20/25 20:50 Senior Quality Methods Specialist ID [place] 03/20/25 20:50 Sodium 140 mmol/L (136-145) 03/25/25 04:44 Potassium 3.8 mmol/L (3.5-5.1) 03/25/25 04:44 Chloride 89 mmol/L (98-107) L 03/25/25 04:44 Carbon Dioxide 39 mmol/L (22-29) H 03/25/25 04:44 Anion Gap 15.8 (5-19) 03/25/25 04:44 BUN 49 mg/dL (8-23) H 03/25/25 04:44 Creatinine 1.8 mg/dL (0.7-1.2) H 03/25/25 04:44 GFR Calculation 37.7 mL/min (90-130) L 03/25/25 04:44 Glucose 104 mg/dL (65-115) 03/25/25 04:44 POC Glucose 151 mg/dL (70-110) H 03/20/25 23:56 Calculated Osmolality 303 mOsm/kg (285-295) H 03/25/25 04:44 Lactic Acid 1.1 mmol/L (0.5-2.2) 03/20/25 19:15 Calcium 9.7 mg/dL (8.5-10.5) 03/25/25 04:44 Phosphorus 2.6 mg/dL (2.5-4.5) 03/24/25 02:37 Magnesium 1.9 mg/dL (1.7-2.3) 03/24/25 02:37 Iron 15 ug/dL (59-158) L 03/21/25 02:05 TIBC 276 mcg/dl 03/21/25 02:05 % Saturation 5.4 % (20-50) L 03/21/25 02:05 Unsat Iron Binding 261 ug/dL (112-347) 03/21/25 02:05 Total Bilirubin 0.3 mg/dL (0.15-1.2) 03/23/25 03:53 AST 8 U/L (0-40) 03/23/25 03:53 ALT 6 U/L (0-41) 03/23/25 03:53 Alkaline Phosphatase 50 U/L (40-130) 03/23/25 03:53 Troponin T Baseline 71 ng/L (0-15) H 03/20/25 19:15 Troponin T 120 Minute 65.55 ng/L (0-15) H 03/20/25 21:39 Delta Troponin T -5.45 ABS# (0-10) L 03/20/25 21:39 Troponin T Hi Sens 6Hr 61.36 ng/L (0-15) H 03/21/25 02:05 Troponin T Hi Sens 6Hr Delta -9.64 ng/L (0-12) L 03/21/25 02:05 NT-Pro-B Natriuret Pep 9294 pg/mL (0-125) H 03/20/25 19:15 Total Protein 5.9 g/dL (6.6-8.7) L 03/23/25 03:53 Albumin 3.3 g/dL (3.5-5.2) L 03/23/25 03:53 Globulin 2.6 g/dL (1.3-4.6) 03/23/25 03:53 Procalcitonin 0.07 ng/mL (0-0.5) 03/20/25 19:15 Urine Color Red (Yellow) A 03/22/25 18:55 Urine Appearance Clear (CLEAR) 03/22/25 18:55 Urine pH 5.5 (5-7) 03/22/25 18:55 Ur Specific [place] 1.009 (1.005-1.030) 03/22/25 18:55 Urine Protein 1+ (Negative) A 03/22/25 18:55 Urine Glucose (UA) Negative (Normal) 03/22/25 18:55 Urine Ketones Negative (Negative) 03/22/25 18:55 Urine Blood 3+ (Negative) A 03/22/25 18:55 Urine Nitrate Negative (Negative) 03/22/25 18:55 Urine Bilirubin Negative (Negative) 03/22/25 18:55 Urine Urobilinogen 1.0 mg/dL (Negative) 03/22/25 18:55 Ur Leukocyte Esterase 1+ (Negative) A 03/22/25 18:55 Urine RBC Too numerous to cnt /hpf (0-2) H 03/22/25 18:55 Urine WBC 6-10 /hpf (0-5) 03/22/25 18:55 Ur Squamous Epith Cells 0-2 /hpf (0-5) 03/22/25 18:55 Urine Bacteria 4+ /hpf (NONE) H 03/22/25 18:55 Influenza A (PCR) Negative (Negative) 03/20/25 19:44 Influenza Type B (PCR) Negative (Negative) 03/20/25 19:44 RSV (PCR) Negative (Negative) 03/20/25 19:44 SARS-CoV-2 (PCR) Negative (Negative) 03/20/25 19:44 Vitals Last Vital Signs Temp 99.1 F 03/25/25 07:12 Pulse 107 H 03/25/25 08:41 Resp 18 03/25/25 08:41 BP 91/67 03/25/25 07:12 Pulse Ox 93 03/25/25 08:41 O2 Del Method Nasal Cannula 03/25/25 08:41 O2 Flow Rate 1 03/25/25 08:41 FiO2 21 03/21/25 23:56 Discharge Plan Discharge Patient Disposition: Xfer SNF Condition: Stable Prescriptions: New amiodarone [Pacerone] 200 mg Tablet 400 mg PO BID Qty: 120 0RF furosemide 40 mg Tablet 80 mg PO BID@ 3 Days Qty: 6 0RF potassium chloride [Klor-Con M20] 20 mEq Tablet,Er Particles/Crystals 40 meq PO Q12H 15 Days Qty: 60 0RF metolazone 5 mg Tablet 2.5 mg PO DAILY 30 Days Qty: 30 0RF Continued acetaminophen [Tylenol Arthritis Pain] 650 mg tablet extended release 650 mg PO Q12H PRN (Reason: pain) Qty: 60 1RF (DME) CPAP mask, tubing, supplies See Rx Instructions .ROUTE .MEDSUPPLY Qty: 1 1RF Rx Instructions: As directed (DME) auto CPAP 6-16 setting See Rx Instructions .Route .MEDSUPPLY Qty: 1 0RF Rx Instructions: As directed gemfibrozil 600 mg tablet 600 mg PO BID Qty: 200 3RF rivaroxaban 20 mg tablet 20 mg PO DAILY Qty: 100 3RF Rx Instructions: must administer with evening meal amiodarone [Pacerone] 200 mg tablet 200 mg PO DAILY Qty: 100 3RF cholecalciferol (vitamin D3) [Vitamin D3] 125 mcg (5,000 unit) Tablet 125 mcg PO DAILY furosemide 40 mg Tablet 40 mg PO BID@,16 Qty: 60 2RF pantoprazole 40 mg tablet,delayed release (DR/EC) 40 mg PO BID Qty: 60 3RF nystatin 100,000 unit/gram Powder 1 applic TOPICAL BID baclofen 5 mg tablet 5 mg PO Q8H PRN (Reason: Muscle Spasm) albuterol sulfate 2.5 mg /3 mL (0.083 %) Solution For Nebulization 2.5 mg INHALATION Q4H PRN (Reason: Dyspnea) ammonium lactate 12 % Cream 1 applic TOPICAL DAILY Rx Instructions: apply to left lower leg topically every day shift for dry, flaky skin Cough Drops (menthol-pectin) 2.5-7 mg Lozenge 1 agusto PO Q4H PRN (Reason: Cough) guaifenesin [Guaifed (guaifenesin)] 100 mg/5 mL Liquid 200 mg PO Q4H PRN (Reason: Cough) carvedilol 3.125 mg tablet 3.125 mg PO BID Qty: 180 3RF Rx Instructions: must administer with a meal/food; hold for SBP less than 95 Discontinued valsartan 160 mg tablet 160 mg PO DAILY Discharge Order = DC NOW: Discharge Order (Routine); Ordered 03/25/25 Ordered By: Elsa Harrison Other Ambulatory Orders: Basic Metabolic Panel (Routine) Timeframe: 1 Week Facility: [facility] - Location: Lab - Main Lab Ordered By: Naeem Nash Magnesium (Routine) Timeframe: 1 Week Facility: [facility] - Location: Lab - Main Lab Ordered By: Naeem Nash Referrals: [facility] [Outside] Brent Samuel MD [Primary Care Provider, [facility]] - 2 weeks Discharge Diet: Diabetic Patient Instructions: Amiodarone (By mouth) (Cordarone, Pacerone), A-fib (Atrial Fibrillation) (GEN), Cor Pulmonale (GEN), Anemia (DC), CPAP (GEN), Acute Respiratory Failure (GEN), CHF Stoplight, Opioid Safety, Patient Portal & Erica Instructions, Obstructive Sleep Apnea Activity Restrictions/Additional Instructions: Wear your CPAP whenever sleeping whether that be daytime or nighttime Take your diuretics as prescribed and weigh yourself daily on a standing scale if possible Eat less than 2000 mathew a day and exercise large muscles standing transferring walking leg lifts arm lifts Your goal is to lose 3 pounds a week or roughly 1% of your body weight per week that is flash. Water weight will be in addition If you have leg cramps or lightheadedness then your diuretics need to be adjusted and your magnesium and potassium checked Eat a 2000-calorie diabetic weight loss diet. Do not eat concentrated sweets, desserts or any caloric drinks. Once you are losing 1% of your body weight weekly and able to stand and walk you can reward yourself with occasional dessert or comfort food but focus on your weight loss and health first Discharge Attestations Time Spent in Discharge Care*: greater than 30 min Status at Discharge: Cognitive status at discharge: cognitively intact, Behavioral status at discharge: cooperative and can be uncooperative, Quality Metrics Clinical Quality Measures [ No reported AMI, CVA or VTE this stay] Coding Level of Care Code Acute Code for Chg Fwd Diagnoses Acute hypoxic on chronic hypercapnic respiratory failure J96.01; J96.12 Acute exacerbation of CHF (congestive heart failure) I50.23 Heart failure type: systolic Iron deficiency anemia D50.9 Chronic atrial fibrillation I48.20 Chronic hypoxic respiratory failure, on home oxygen therapy J96.11; Z99.81 Morbid obesity with BMI of 50.0-59.9, adult E66.01; Z68.43
--- NOTE | 2025-03-25 10:45 | PC.SOCIAL ---
IMM Updated Updated pt on IMM. No questions voiced. Provided pt a copy. Initialed, dated, & timed copy in chart.
[2025-03-25 11:40] VITALS: BP 97/65; PULSE 108; RESP 16; TEMP 36.3; O2SAT 95
== END 2025-03-25 11:45 | disposition skilled nursing facility (03) | DRG 291 ==
LOC: ER 20:19 → ICU 21:17 → CSU 03-23 15:26
PROVIDERS: Internal Medicine; Physician Assistant; Admitting Provider Internal Medicine; Emergency Provider Emergency Medicine; PCP Family Medicine; Visit Provider Student in an Organized Health Care Education/Training Program
DX: I13.0 Hypertensive heart and chronic kidney disease with heart failure and stage 1 through stage 4 chronic kidney disease, or unspecified chronic kidney disease (principal); I50.23 Acute on chronic systolic (congestive) heart failure; J96.21 Acute and chronic respiratory failure with hypoxia; J96.02 Acute respiratory failure with hypercapnia; N18.4 Chronic kidney disease, stage 4 (severe); I48.20 Chronic atrial fibrillation, unspecified; Z68.42 Body mass index [BMI] 45.0-49.9, adult; J44.1 Chronic obstructive pulmonary disease with (acute) exacerbation; J44.0 Chronic obstructive pulmonary disease with (acute) lower respiratory infection; D50.9 Iron deficiency anemia, unspecified; E66.9 Obesity, unspecified; G47.33 Obstructive sleep apnea (adult) (pediatric); I25.10 Atherosclerotic heart disease of native coronary artery without angina pectoris; I73.9 Peripheral vascular disease, unspecified; I44.7 Left bundle-branch block, unspecified; I89.1 Lymphangitis; J40 Bronchitis, not specified as acute or chronic; E78.5 Hyperlipidemia, unspecified; D63.1 Anemia in chronic kidney disease; F10.11 Alcohol abuse, in remission; Z99.81 Dependence on supplemental oxygen; Z85.828 Personal history of other malignant neoplasm of skin; Z91.199 Patient's noncompliance with other medical treatment and regimen due to unspecified reason
CPT/HCPCS: 36415; 36416; 36600; 71045; 80048; 80051; 80053; 81001; 82330; 82805; 82962; 83540; 83550; 83605; 83735; 83880; 84100; 84132; 84145; 84484; 85025; 87040; 87077; 87086; 87186; 87637; 93005; 94640; 94660; 96374; 96375; 97161; 97530; 99291; J1756; J1938; J2470; J2919; J3475; J3490; J7613; J9999; Q0144

== ENCOUNTER 2025-04-17 16:53 | Inpatient (IN) | payer MEDICARE, MEDICAID, SELFPAY ==
[2025-04-17] VITALS (22 sets, daily range): BP systolic 94–122; BP diastolic 63–102; PULSE 91–134; RESP 15–21; TEMP 36.6–37.2; O2SAT 93–97; BMI 32.8
--- NOTE | 2025-04-17 16:55 | XRR_ITS ---
PROCEDURE INFORMATION: Exam: XR Chest Exam date and time: 04/17/2025 5:03 PM Age: 67 years old Clinical indication: Pain; Angina pectoris; Additional info: Chest pain TECHNIQUE: Imaging protocol: Radiologic exam of the chest. Views: 1 view. COMPARISON: CR (CHEST, ) 03/24/2025 2:06 AM FINDINGS: Tubes, catheters and devices: Defibrillator pads have been applied to the patient. Lungs: Moderate pulmonary vascular congestion. Blurring of pulmonary vascular margins. Pleural spaces: Unremarkable. No pleural effusion. No pneumothorax. Heart/Mediastinum: The heart is moderately enlarged. Bones/joints: Unremarkable. XR/XR chest 1V portable [id number] IMPRESSION: Left heart decompensation with interstitial edema, pulmonary vascular congestion and cardiomegaly.
--- NOTE | 2025-04-17 16:59 | ECG_ITS ---
[facility] Test Date: 2025-04-17 Pat Name: Kristopher Jesus Department: Room: Gender: Male Home Care Manager: : 1958-02-28 Requested By: Miryam Santos Order Number: [id number] Hamzah MD: Carly Mancia M.D. Measurements Intervals [place] Rate: 142 P: 0 NE: 0 QRS: 89 QRSD: 302 T: 0 QT: 398 QTc: 613 Interpretive Statements ATRIAL FIBRILLATION WITH RAPID VENTRICULAR RESPONSE INDETERMINATE AXIS INTRAVENTRICULAR CONDUCTION DELAY [130+ ms QRS DURATION] LATERAL MYOCARDIAL INFARCTION , OF INDETERMINATE AGE [40+ ms Q WAVE AND/OR ST/T ABNORMALITY IN I/aVL/V5/V6] Compared to ECG 03/21/2025 01:57:46 Indeterminate axis now present Intraventricular conduction delay now present Myocardial infarct finding now present Ventricular premature complex(es) no longer present Aberrant conduction of supraventricular beat(s) no longer present Left bundle-branch block no longer present Electronically Signed On 04-17-2025 23:39:20 LOFT WORKER by Carly Mancia M.D. [email or web address]
--- OUTSIDE RECORDS SUMMARY | 2025-04-17 16:59 | XMS_ITS | Continuity of Care Document ---
Author Organization [facility] Thelma Kate, [facility] ([facility]) Address [address] [place] [address] Assessment No assessment recorded. Plan of Treatment Reminders Order Date Submit Date Provider Last Modified By Organization Details Last Modified Time Details Appointments [facility] VISIT 2024 11:30A M Ck Alfaro, DO Not available Not available Not available Lab None recorded . Referral None recorded . Procedures None recorded . Surgeries None recorded . Imaging None recorded . Medication Orders None recorded . Patient TargetsNo targets recorded. Patient Instructions Encounter Date Encounter Id Patient Instructions Last Modified By Organization Details Last Modified Time 04/17/2025 [id number] Discussed arthritis medications and how not safe with recent kidney function. Will repeat BMP and consider alternate medications. Not available 04/17/2025 13:50:34 Reason for Referral None Reported. Problems Name Problem SNOMED Code Status Onset Date Resolution Date Notes Provider Name and Address Organization Details Recorded Time Essential hypertension 89046612 Active 2024 [facility] 14:14:51 Gastroesophag eal reflux disease without esophagitis 009055014 Active 2024 [facility]IG [facility] 5 14:14:52 Vitamin D deficiency 31071148 Active 2024 [facility]RAIG [facility]va [facility] 5 14:14:52 Chronic atrial fibrillation 409971055 Active 2024 [facility]RAIG [facility] 14:14:53 Chronic congestive heart failure 38792273 Active 2024 [facility]IG [facility] 14:14:55 Hyperglycemia 45547903 Active 2024 [facility]IG [facility] 14:14:57 Peripheral vascular disease 693342197 Active 2024 [facility]IG [facility] 14:14:58 Chronic kidney disease stage 3 798402911 Active 2024 [facility]IG [facility] 14:14:59 Acute exacerbation of chronic congestive heart failure 999991803 Active 2024 [facility]Y B[facility] 16:33:27 Chronic anemia 234715517 Active 2024 [facility] 16:33:35 Iron deficiency anemia 72676464 [facility] 16:33:50 Problem Notes None recorded. Medical Equipment None Reported. Medications Name Sig Start Date Stop Date Status Note LastModified by Organization Details LastModified Time furosemide 40 mg tablet TAKE ONE TABLET BY MOUTH TWICE DAILY AT 8am AND 4pm active Not Available Not Available No t Available pantoprazole 40 mg tablet,delayed release TAKE ONE TABLET BY MOUTH TWICE DAILY active Not Available Not Available No t Available Vitals Date Recorded Body weight Heart rate Respiratory rate Body temperature Oxygen saturation Oxygen saturation in Arterial blood by Pulse oximetry Systolic And Diastolic Provider Name and Address Organization Details Last Updated DateTime 5 163488. 1 g 104 /min 17 /min 97.3 [degF] 93 % 93 % 104/71 mm[Hg] [facility] 13:47:46 Social History None recorded. Functional Status None recorded. Mental Status None recorded. Family History Nothing Reported. Medical History No medical history recorded. Immunizations Vaccine Type Date Status Note Provider Nam e and Address Organization Details Recorded Time Tdap 01/18/2023 completed Not Available [facility] 04/17/2025 07:12:48 Tdap 03/05/2025 completed Not Available [facility] 04/17/2025 07:12:48 Past Encounters Encounter ID Performer Location Encounter Start Date Encounter Closed Date Diagnosis/Indication Diagnosis SNOMED-CT Code Diagnosis ICD10 Code Diagnosis IMO Codes Diagnosis Note [id number] NEDA MATTHEWS PA-C [facility] ([facility]) [address] [place] [phone] 03/27/2025 13:56:33 04/09/2025 16:24:54 Post-discharge follow-up 220664315 Z09 [id number] hospital records and labs reviewed Acute exac erbation of chronic congestive heart failure 432603121 I50.9 5341201191 increase lasix 40mg bid metolazone 2.5mg qdcbc, bmp in one week. Iron defic iency anemia 25434706 D50.9 49415196 hgb 8.2,, fe 325mg qd [id number] Ck Alfaro DO [facility] ([facility]) [address] [place] [phone] 04/17/2025 07:12:40 04/17/2025 15:08:46 Gastroesophageal reflux disease without esophagitis 578737267 K21.9 006688 Peripheral vascular disease 446083492 I73.9 45027 Chronic anemia 856344432 D64.9 677953 Vitamin D deficiency 347 30793 E55.9 02571 Chronic at rial fibrillation 463772382 I48.20 651042 Chronic ki dney disease stage 3 469942701 N18.30 6338377051 Essential hypertension 22714509 I10 25857 Acute exac erbation of chronic congestive heart failure 525141766 I50.9 7777400050 Hyperglycemia 02194469 R 73.9 24731 Chronic co ngestive heart failure 89265801 I50.9 2238683844 Iron defic iency anemia 88652518 D50.9 13533441 Health Concerns Section Related Observation LastModified by Organization Detai ls LastModified Time None Recorded Concern Status LastModified by Organization Details LastModified Time None Recorded Payers Encounter Date Sequence Insurance Name Policy Number Policy Post Covered Member ID Post Member ID Guarantor Name 04/17/2025 1 [facility] (MEDICARE REPLACEMENT/A DVANTAGE - PPO) [id number] Kristopher Jesus [id number] Kristopher Jesus 04/17/2025 2 [place] Kristopher Jesus [id number] Kristopher Jesus Notes Date Note Type Note Provider Name and Address Organization Details Recorded Time 04/17/2025 text/html Care Management - GeneralReported by PatientHPIFor prognosis, patient reportsexpected outcome: improveandprognosis: moderate.ROS as noted in the HPI no complaints per staff. Ck Alfaro DO [address] [place] [address], [phone], [facility] 04/17/2025 15:08:44
--- OUTSIDE RECORDS SUMMARY | 2025-04-17 16:59 | XMS_ITS | Data Portability ---
Author Organization [facility] Thelma Gotti [facility] Address [address] [phone] Assessment No assessment recorded. Plan of Treatment Reminders Order Date Submit Date Provider Last Modified By Organization Details Last Modified Time Details Appointments [facility] VISIT 2024 11:30A M Ck Alfaro, DO Not available Not available Not available Lab None recorded . Referral None recorded . Procedures None recorded . Surgeries None recorded . Imaging None recorded . Medication Orders None recorded . Patient TargetsNo targets recorded. Patient Instructions Encounter Date Encounter Id Patient Instructions Last Modified By Organization Details Last Modified Time 03/06/2025 [id number] hospital notes reviewed; admitted with acute chf exacerbation with acute on chronic anemia and acute kidney injury. He has been home bound for a year and has not seen pcp. He has chronic wounds. required transfusion with hgb 6; 8 on discharge; received 5 IV infusions of iron Blood pressure too low, will d/c amlodipine and hydralazine. Weights 2x weekly. Unsure if staying nursing home, plan is for therapy and return home. [email or web address] Not available 03/11/2025 13:17:40 03/13/2025 [id number] Attempted to return home over the weekend, did not go well. Unable to care for self. Will d/c mobic and start baclofen 5mg tid prn x 7 days. Not available 03/13/2025 14:54:26 04/17/2025 [id number] Discussed arthritis medications and how not safe with recent kidney function. Will repeat BMP and consider alternate medications. [email or web address] Not available 04/17/2025 13:50:34 Reason for Referral None Reported. Problems Name Problem SNOMED Code Status Onset Date Resolution Date Notes Provider Name and Address Organization Details Recorded Time Essential hypertension 17388060 Active 2024 CRAIG alva, [facility] 5 14:14:51 Gastroesophag eal reflux disease without esophagitis 005412974 Active 2024 CRAIG alva, [facility] 5 14:14:52 Vitamin D deficiency 46327226 Active 2024 CRAIG UNDERWOOD [facility], [facility] 5 14:14:52 Chronic atrial fibrillation 188462890 Active 2024 CRAIG UNDERWOOD [facility], [facility] 5 14:14:53 Chronic congestive heart failure 09453519 Active 2024 CRAIG UNDERWOOD [facility], [facility] 5 14:14:55 Hyperglycemia 35723309 Active 2024 CRAIG UNDERWOOD [facility], [facility] 5 14:14:57 Peripheral vascular disease 669927308 Active 2024 CRAIG UNDERWOOD [facility], [facility] 5 14:14:58 Chronic kidney disease stage 3 381752282 Active 2024 CRAIG UNDERWOOD [facility], [facility] 5 14:14:59 Acute exacerbation of chronic congestive heart failure 809094426 Active 2024 NEFTALY VITALIY [facility], [facility] 16:33:27 Chronic anemia 963032169 Active 2024 NEFTALY VITALIY [facility], [facility] 16:33:35 Iron deficiency anemia 33244864 Active 2024 NEFTALY BURKS [facility], [facility] 5 16:33:50 Problem Notes None recorded. Medical Equipment [...] Available No t Available Vitals Date Recorded Heart rate Respiratory rate Body temperature Oxygen saturation Oxygen saturation in Arterial blood by Pulse oximetry Systolic And Diastolic Provider Name and Address Organization Details Last Updated DateTime 5 67 /min 24 /min 97.7 [degF] 96 % 96 % 110/60 mm[Hg] [facility] 5 14:09:40 Date Recorded Heart rate Respiratory rate Body temperature Oxygen saturation Oxygen saturation in Arterial blood by Pulse oximetry Systolic And Diastolic Provider Name and Address Organization Details Last Updated DateTime 5 82 /min 18 /min 98 [degF] 98 % 98 % 125/73 mm[Hg] [facility] 5 14:52:16 Date Recorded Body weight Oxygen saturation Oxygen saturation in Arterial blood by Pulse oximetry Heart rate Respiratory rate Body temperature Systolic And Diastolic Provider Name and Address Organization Details Last Updated DateTime 5 647419. 71 g 96 % 96 % 102 /min 16 /min 98 [degF] 105/63 mm[Hg] NEFTALY BURKS [facility] 5 16:31:44 Date Recorded Body weight Heart rate Respiratory rate Body temperature Oxygen saturation Oxygen saturation in Arterial blood by Pulse oximetry Systolic And Diastolic Provider Name and Address Organization Details Last Updated DateTime 5 124780. 1 g 104 /min 17 /min 97.3 [degF] 93 % 93 % 104/71 mm[Hg] [facility] 5 13:47:46 Social History None recorded. Functional Status None recorded. Mental Status None recorded. Family History Nothing Reported. Medical History No medical history recorded. Immunizations Vaccine Type Date Status Note Provider Nam e and Address Organization Details Recorded Time Tdap 01/18/2023 completed Not Available [facility] 04/17/2025 07:12:48 Tdap 03/05/2025 completed Not Available [facility] 04/17/2025 07:12:48 Past Encounters Encounter ID Performer Location Encounter Start Date Encounter Closed Date Diagnosis/Indication Diagnosis SNOMED-CT Code Diagnosis ICD10 Code Diagnosis IMO Codes Diagnosis Note [id number] Ck Alfaro DO [facility] ([facility]) [address] [place] [phone] 03/06/2025 12:44:43 03/13/2025 14:58:48 Essential hypertension 77133879 I10 17268 Gastroesop hageal reflux disease without esophagitis 529366487 K21.9 168966 Vitamin D deficiency 347 99302 E55.9 62319 Chronic at rial fibrillation 861557706 I48.20 120011 Hyperglycemia 47187204 R 73.9 41363 Peripheral vascular disease 055437018 I73.9 94048 Chronic ki dney disease stage 3 556634161 N18.30 0118347460 Morbid obesity 923219688 E66.01 53630 Coronary arteriosclerosis 81944244 I25.10 5611418777 Venous stasis 71892484 I 87.8 00338 Chronic di astolic heart failure 407535565 I50.32 332932 Chronic anemia 735164347 D64.9 3455180376 [id number] Ck Alfaro DO [facility] ([facility]) [address] [place] [phone] 03/13/2025 11:57:49 03/14/2025 14:29:18 Chronic atrial fibrillation 983830470 I48.20 522725 Peripheral vascular disease 229933598 I73.9 37175 Chronic ki dney disease stage 3 980447344 N18.30 5899181852 Essential hypertension 77692553 I10 16899 Chronic co ngestive heart failure 90717982 I50.9 3241543809 [id number] NEDA MATTHEWS PA-C [facility] ([facility]) [address] [place] [phone] 03/27/2025 13:56:33 04/09/2025 16:24:54 Post-discharge follow-up 813062486 Z09 [id number] hospital records and labs reviewed Acute exac erbation of chronic congestive heart failure 049315531 I50.9 1032954474 increase lasix 40mg bid metolazone 2.5mg qdcbc, bmp in one week. Iron defic iency anemia 51965575 D50.9 41053478 hgb 8.2,, fe 325mg qd [id number] Ck Alfaro DO [facility] ([facility]) [address] [place] [address] 04/17/2025 07:12:40 04/17/2025 15:08:46 Gastroesophageal reflux disease without esophagitis 933091217 K21.9 931285 Peripheral vascular disease 412919552 I73.9 67778 Chronic anemia 825857527 D64.9 792249 Vitamin D deficiency 347 43198 E55.9 79217 Chronic at rial fibrillation 662186022 I48.20 124850 Chronic ki dney disease stage 3 831349310 N18.30 8484662401 Essential hypertension 16514162 I10 74706 Acute exac erbation of chronic congestive heart failure 588457245 I50.9 6944308060 Hyperglycemia 32738859 R 73.9 63572 Chronic co ngestive heart failure 75618171 I50.9 2583364485 Iron defic iency anemia 84297597 D50.9 78925671 Health Concerns Section Related Observation LastModified by Organization Detai ls LastModified Time None Recorded Concern Status LastModified by Organization Details LastModified Time None Recorded Advance Directives Directive None Recorded Payers Insurance Date Sequence Insurance Name Policy Number Policy Post Covered Member ID Post Member ID Guarantor Name 03/06/2025 3 *SELF PAY* Da dione Jesus 04/16/2025 [place] [facility] Kristopher Jesus [id number] Kristopher Jesus 04/16/2025 2 [place] Kristopher Jesus [id number] Kristopher Jesus 04/16/2025 1 [facility] (MEDICARE REPLACEMENT/A DVANTAGE - PPO) [id number] Kristopher Jesus [id number] Kristopher Jesus Notes Date Note Type Note Provider Name and Address Organization Details Recorded Time 03/06/2025 text/html Care Management - GeneralReported by PatientIFor prognosis, patient reportsexpected outcome: improveandprognosis: moderate.ROS as noted in the HPI new admit to after ER visit, plan for therapy and return home. Ck Alfaro DO [address] [place] [address], [phone], [facility] 03/11/2025 13:17:55 03/13/2025 text/html Care Management - GeneralReported by PatientH[facility]or prognosis, patient reportsexpected outcome: improveandprognosis: moderate.ROS as noted in the HPI re-admit to [facility] Ck Alfaro DO [address] [place] [address], [phone], [facility] 03/13/2025 15:04:41 03/27/2025 text/html Care Management - Congestive Heart Failure (CHF)Reported by PatientH[facility]STITUTEor self care, patient reportsrecent hospitalizationbut reportsweight status: obese,using a beta huey, andusing a diuretic(per notes pt was diuresis off 40 lb. nh has not done a new wt since readmission). For severity, patient reportsinterferes with daily activitiesbut reportssymptoms are improving. For prognosis, patient reportsexpected outcome: improveandprognosis: guarded. For associated symptoms, patient reportsno chest pain,no chest tightness,no limb swelling, andno appetite loss. Pt went out to ER and had a short term stay. He had acute swelling and SOB. discharge summary reports a net fluid loss that would equal 40lb.He is feeling better. legs are no longer swollen. Ck Alfaro DO [address] [place] [address], [phone], [facility] 04/09/2025 15:13:05 04/17/2025 text/html Care Management - GeneralReported by PatientHUN[facility]STITUTEor prognosis, patient reportsexpected outcome: improveandprognosis: moderate.ROS as noted in the HPI no complaints per staff. Ck Alfaro, DO [address] [place] [address], [phone], [facility] 04/17/2025 15:08:44
--- NOTE | 2025-04-17 17:02 | ED_ITS ---
HPI - Chest Pain 2 General: Chief Complaint: Chest Pain Stated Complaint: chest pain Time Seen by Provider: 04/17/25 16:54 History of Present Illness: 67-year-old male with history of atrial fibrillation, congestive heart failure, obesity, obstructive sleep apnea, chronic kidney disease, chronic anticoagulation on Xarelto who presents to the emergency room by [facility] with chest pressure and tachycardia. He has no other complaints. No cough. No fever. No abdominal pain. No altered mental status. No nausea or vomiting. Related Data Home Medications ?Medication ?Instructions ?Recorded ?Confirmed cholecalciferol (vitamin D3) 125 125 mcg PO DAILY 10/0103/21/25 mcg (5,000 unit) tablet (Vitamin D3) albuterol sulfate 2.5 mg/3 mL 2.5 mg inhalation Q4H UT N Dyspnea 03/21/25 03/21/25 (0.083 %) solution for nebulization ammonium lactate 12 % topical cream 1 applic topical D AILY 03/21/25 03/21/25 baclofen 5 mg tablet 5 mg PO Q8H PRN Muscle Spasm 03/21/25 03/21/25 guaifenesin 100 mg/5 mL oral 200 mg PO Q4H PRN Cough 1 03/21/25 liquid (Guaifed (guaifenesin)) menthol 2.5 mg-pectin 7 mg 1 agusto PO Q4H PRN Cough 03/0703/21/25 lozenges (Cough Drops (menthol-pectin)) nystatin 100,000 unit/gram topical 1 applic topical BI D 03/21/25 03/21/25 powder Previous Rx's ?Medication ?Instructions ?Recorded auto CPAP 6-16 setting #1 ea 03/22/23 amiodarone 200 mg tablet (Pacerone) 200 mg PO DAILY #1 00 tabs 06/18/24 gemfibrozil 600 mg tablet 600 mg PO BID #200 tabs 12/05 rivaroxaban 20 mg tablet 20 mg PO DAILY #100 tabs 12/05 CPAP mask, tubing, supplies #1 ea 08/14/24 acetaminophen 650 mg 650 mg PO Q12H PRN pain #60 tabs 08/14/24 tablet,extended release (Tylenol Arthritis Pain) furosemide 40 mg tablet 40 mg PO BID@ #60 tabs 03/04/25 pantoprazole 40 mg tablet,delayed 40 mg PO BID #60 tab s 03/04/25 release carvedilol 3.125 mg tablet 3.125 mg PO BID #180 tabs 1 metolazone 5 mg tablet 2.5 mg (1/2 x 5 mg) PO DAILY 30 03/25/25 days #30 tabs Allergies Allergy/AdvReac Type Severity Reaction Status Date / Time Penicillins Allergy ALGY-Difficulty Verified 03/01/25 14:12 Breathing Review of Systems 2 Narrative: Constitutional symptoms: Negative except as documented in HPI. Skin symptoms: Negative except as documented in HPI. Eye symptoms: Negative except as documented in HPI. ENMT symptoms: Negative except as documented in HPI. Respiratory symptoms: Negative except as documented in HPI. Cardiovascular symptoms: Negative except as documented in HPI. Gastrointestinal symptoms: Negative except as documented in HPI. Genitourinary symptoms: Negative except as documented in HPI. Musculoskeletal symptoms: Negative except as documented in HPI. Neurologic symptoms: Negative except as documented in HPI. Psychiatric symptoms: Negative except as documented in HPI. Endocrine symptoms: Negative except as documented in HPI. PFSH ED 2 PFSH: Medical History (Updated 04/17/25 @ 20:27 by Miryam Fowler MD) Afib Heart failure with mildly reduced ejection fraction Cardiac murmur, previously undiagnosed Bilateral impacted cerumen Pre-diabetes Obstructive sleep apnea syndrome, severe Severe obstructive sleep apnea with hypoxia on 01/03/2023 study Basal cell carcinoma of right ear Chronic shortness of breath CKD (chronic kidney disease) stage 3, GFR 30-59 ml/min Cardiac arrest with ventricular fibrillation Chronic episodic atrial fibrillation Hx of adenomatous colonic polyps Last Colonoscopy 09/12/2020 with adenomatous polyp removed at 50 cm F/U 5 yrs Osteoarthritis Left bundle branch block History of alcohol abuse PVD (peripheral vascular disease) Morbid obesity with BMI of 50.0-59.9, adult CHF (congestive heart failure) CAD (coronary artery disease) Hx of myocardial infarction HTN (hypertension) Anemia in chronic kidney disease Hyperlipidemia Surgical History Hx of external ear surgery History of open reduction and internal fixation (ORIF) procedure Hx of foot surgery History of surgery on wrist Family History Mother No problems noted. Father No problems noted. Grandmother Diabetes Denies family history of CAD (coronary artery disease) Clotting disorder Dementia Chronic kidney disease (CKD) Suicide Anesthesia complication Bleeding disorder Lung disease Cancer Stroke Social History Smoking and tobacco/nicotine status: never used tobacco/nicotine Alcohol intake: never Substance/Drug Use: never Marital status: Single Number of children: 1 Current occupational status: disabled Physical Exam 2 Narrative: EXAM NARRATIVE: General: Alert, no acute distress. Skin: Warm, dry. Head: Normocephalic, atraumatic. Neck: Supple, trachea midline. Eye: Extraocular movements are intact. Ears, nose, mouth and throat: mucosa moist. Cardiovascular: Irregular and tachycardic,, Normal peripheral perfusion. Respiratory: Lungs are clear to auscultation, respirations are non-labored, breath sounds are equal, Symmetrical chest wall expansion. Gastrointestinal: Soft, Nontender, Non distended Musculoskeletal: Normal ROM, no deformity. Neurological: Alert and oriented, No focal neurological deficit observed. Psychiatric: Cooperative, appropriate mood & affect. Course 2 Vital Signs: Vital signs: Vital Signs Temperature 97.8 F 04/17/25 16:56 Pulse Rate 112 H 04/17/25 20:08 Respiratory Rate 21 H 04/17/25 20:08 Blood Pressure 115/71 04/17/25 20:08 Pulse Oximetry 95 04/17/25 20:08 Oxygen Delivery Me thod Room Air 04/17/25 17:57 Oxygen Flow Rate 1 04/17/25 17:39 MDM - Chest Pain Medical Decision Making Medical decision making: Patient's reason for coming to the emergency room: Tachycardia and chest pain Social determinants: Patient is disabled and in a penitentiary I reviewed the patient's medical record. 67-year-old male with history of atrial fibrillation, congestive heart failure, obesity, obstructive sleep apnea, chronic kidney disease, chronic anticoagulation on Xarelto I reviewed the patient's current home meds Anticoagulation on Xarelto Differential diagnosis including but not limited to and based on the above HPI, review of systems and physical exam: for patient with palpitations: atrial fibrillation with rapid ventricular response. ventricular tachycardia. sinus tachycardia. PVCs. also concern for underlying issues causing tachycardia. Infection, electrolyte abnormalities and thyroid issues. Orders placed to evaluate differential diagnosis based on the above differential, HPI and physical exam EKG: Time 1659. Rate 142. Atrial fibrillation with rapid ventricular response, No ST-T changes, no ectopy, This was reviewed and interpreted by myself the ER physician at 1703 Repeat EKG: Time 1830. Rate 123. Atrial fibrillation with rapid ventricular response, No ST-T changes, no ectopy, This was reviewed and interpreted by myself the ER physician at 1835. Rate has reduced by about 20 bpm from previous EKG Lab Review: Laboratory results were reviewed and interpreted by myself the emergency room physician. no leukocytosis. Stable anemia. Worsening renal function with a BUN and creatinine of 102 and 3.5. Troponin is elevated but unchanged on repeat. proBNP is twice the patient's normal at 18,000. Chest x-ray: Concern for left heart decompensation with edema and pulmonary vascular congestion with cardiomegaly. Assessment of risk: Level of risk: Very high risk. retirement patient with multiple comorbidities. Hospitalization considerations: Patient is being admitted Consultation: I spoke with Dr. Nobles who kindly agreed to admit the patient prior to me being completely done with lab work. Assessment and plan: A-fib with RVR Congestive heart failure Acute on chronic renal failure Acute exacerbation of chronic congestive heart failure ?Amiodarone and amiodarone drip. Am holding on fluids for now because he seems to be in worse heart failure but then also is in worse renal failure. This may be cardiorenal syndrome. -I discussed the patient with the hospitalist on-call who is admitting the patient. - Discussed findings and plan with patient. Answered any questions. - All laboratory values were reviewed and interpreted personally by myself, the ER physician - All imaging was reviewed and interpreted personally by myself, the ER physician. - Evaluation and treatment of this problem were appropriate in the emergency setting Critical Care: -I spent a total of 36 minutes of critical care time managing the patient, independent of any other practitioner. -The time involved in the performance of separately reportable procedures was not counted towards critical care time. Lab Data 04/17/25 17:00 04/17/25 17:00 Radiology Impressions Chest X-Ray 04/17/25 16:55 IMPRESSION: Left heart decompensation with interstitial edema, pulmonary vascular congestion and cardiomegaly. Laboratory Results WBC 8.17 10^3/uL (3.29-11.43) 04/17/25 17:00 RBC 3.87 10^6/uL (3.85-5.65) 04/17/25 17:00 Hgb 9.90 g/dL (11.27-16.99) L 04/17/25 17:00 Hct 33.2 % (37-53) L 04/17/25 17:00 MCV 85.8 fl (82-101) 04/17/25 17:00 MCH 25.6 pg (27-33) L 04/17/25 17:00 MCHC 29.8 g/dL (30-55) L 04/17/25 17:00 RDW 19.2 % (12.1-15.1) H 04/17/25 17:00 Plt Count 248 10^3/cmm (157-399) 04/17/25 17:00 MPV 9.9 fL (7.4-10.4) 04/17/25 17:00 Neut % (Auto) 77.1 % 04/17/25 17:00 Lymph % (Auto) 14.3 % 04/17/25 17:00 [place] % (Auto) 7.0 % 04/17/25 17:00 Eos % (Auto) 0.4 % 04/17/25 17:00 Baso % (Auto) 0.6 % 04/17/25 17:00 Neut # (Auto) 6.30 10^3/uL (1.8-7.7) 04/17/25 17:00 Lymph # (Auto) 1.2 10^3/uL (0.8-4.8) 04/17/25 17:00 [place] # (Auto) 0.6 10^3/uL (0.2-0.9) 04/17/25 17:00 Eos # (Auto) 0.0 10^3/uL (0.0-0.8) 04/17/25 17:00 Baso # (Auto) 0.1 10^3/uL (0.0-0.1) 04/17/25 17:00 Nucleated RBC % (auto) 0 % 04/17/25 17:00 Nucleated RBCs # 0.0 /100WBC 04/17/25 17:00 Sodium 137 mmol/L (136-145) 04/17/25 17:00 Potassium 5.1 mmol/L (3.5-5.1) 04/17/25 17:00 Chloride 97 mmol/L (98-107) L 04/17/25 17:00 Carbon Dioxide 16 mmol/L (22-29) L 04/17/25 17:00 Anion Gap 29.1 (5-19) H 04/17/25 17:00 BUN 102 mg/dL (8-23) H* D 04/17/25 17:00 Creatinine 3.5 mg/dL (0.7-1.2) H 04/17/25 17:00 GFR Calculation 17.5 mL/min (90-130) L 04/17/25 17:00 Glucose 149 mg/dL (65-115) H 04/17/25 17:00 Calculated Osmolality 319 mOsm/kg (285-295) H 04/17/25 17:00 Lactic Acid 2.1 mmol/L (0.5-2.2) 04/17/25 17:00 Lactic Acid (Sepsis) 0.9 mmol/L (0.5-2.2) 04/17/25 19:45 Calcium 10.3 mg/dL (8.5-10.5) 04/17/25 17:00 Magnesium 2.0 mg/dL (1.7-2.3) 04/17/25 17:00 Total Bilirubin 0.4 mg/dL (0.15-1.2) 04/17/25 17:00 AST 12 U/L (0-40) 04/17/25 17:00 ALT < 5 U/L (0-41) 04/17/25 17:00 Alkaline Phosphatase 65 U/L (40-130) 04/17/25 17:00 Troponin T Baseline 149 ng/L (0-15) H* 04/17/25 17:00 Troponin T 120 Minute 153.7 ng/L (0-15) H 04/17/25 18:42 Delta Troponin T 4.7 ABS# (0-10) 04/17/25 18:42 C-Reactive Protein 133.3 mg/L (0.0-4.9) H 04/17/25 17:00 NT-Pro-B Natriuret Pep 66841 pg/mL (0-125) H 04/17/25 17:00 Total Protein 7.0 g/dL (6.6-8.7) 04/17/25 17:00 Albumin 3.6 g/dL (3.5-5.2) 04/17/25 17:00 Globulin 3.4 g/dL (1.3-4.6) 04/17/25 17:00 Procalcitonin 0.25 ng/mL (0-0.5) 04/17/25 17:00 TSH 2.30 uIU/mL (0.27-4.20) 04/17/25 17:00 XR interpretation done by ED provider, pending radiology final review Discharge Plan Discharge Patient Disposition: Admitted As Inpatient Clinical Impression: Atrial fibrillation with rapid ventricular response, Acute decompensated heart failure, Acute on chronic renal failure Condition: Stable Coding Level of Care Code ED Printer'S Assistant for Chg Fwd Heart Score HEART Score Components History: Moderately Suspicious EKG: Non-specific Changes Age: 65 or more yrs Risk Factors: >/=3 Risk Factors Troponin: Baseline Trop >45 ng/L HEART Score RESULT HEART Score: 8
[2025-04-17] MEDS: amiodarone 150 MG/100 ML PREMIX 400 MG IV (17:12)
[2025-04-17 17:36] LABS: Hematocrit 33.2 % (37-53); Hemoglobin 9.90 g/dL (11.27-16.99); Mean Corpuscular HGB Conc 29.8 g/dL (30-55); Mean Corpuscular Hemoglobin 25.6 pg (27-33); Mean Corpuscular Volume 85.8 fl (82-101); Nucleated Red Blood Cells % 0 %; Platelet Count 248 10^3/cmm (157-399); Red Blood Count 3.87 10^6/uL (3.85-5.65); White Blood Count 8.17 10^3/uL (3.29-11.43)
[2025-04-17] MEDS: AMIODARONE HCL/D5W 900 MG/500 ML BAG 33.33 MG IV (17:39)
[2025-04-17 18:01] LABS: Lactic Sepsis W/Reflex 2.1 mmol/L (0.5-2.2)
[2025-04-17 18:08] LABS: Troponin(5th) Baseline 149 ng/L (0-15)
[2025-04-17 18:15] LABS: Alanine Aminotransferase < 5 U/L (0-41); Albumin Level 3.6 g/dL (3.5-5.2); Alkaline Phosphatase 65 U/L (40-130); Calcium 10.3 mg/dL (8.5-10.5); Carbon Dioxide 16 mmol/L (22-29); Chloride 97 mmol/L (98-107); Creatinine Clr Calc Pharmacy 30.2746; Globulin 3.4 g/dL (1.3-4.6); Glucose 149 mg/dL (65-115); Magnesium 2.0 mg/dL (1.7-2.3); NT Pro B Type Natriuretic Pept 18192 pg/mL (0-125); Osmolality Calculated 319 mOsm/kg (285-295); Sodium 137 mmol/L (136-145); Thyroid Stimulating Hormone 2.30 uIU/mL (0.27-4.20); Total Protein 7.0 g/dL (6.6-8.7)
[2025-04-17 18:18] LABS: Anion Gap 29.1 (5-19); Aspartate Amino Transferase 12 U/L (0-40); Potassium 5.1 mmol/L (3.5-5.1)
[2025-04-17 18:19] LABS: Blood Urea Nitrogen 102 mg/dL (8-23)
--- NOTE | 2025-04-17 18:30 | ECG_ITS ---
[facility] Test Date: 2025-04-17 Pat Name: Kristopher Jesus Department: Room: Gender: Male Flight Attendant: : 1958-02-28 Requested By: Miryam Santos Order Number: [id number] Hamzah MD: Carly Mancia M.D. Measurements Intervals [place] Rate: 123 P: 0 NC: 0 QRS: 72 QRSD: 169 T: 185 QT: 397 QTc: 569 Interpretive Statements ATRIAL FIBRILLATION WITH RAPID VENTRICULAR RESPONSE LEFT BUNDLE BRANCH BLOCK [120+ ms QRS DURATION, 80+ ms Q/S IN V1/V2, 85+ ms R IN I/aVL/V5/V6] Compared to ECG 04/17/2025 16:59:24 Left bundle-branch block now present Indeterminate axis no longer present Intraventricular conduction delay no longer present Myocardial infarct finding no longer present Electronically Signed On 04-17-2025 23:48:36 STEEL FITTER by Carly Mancia M.D. [email or web address]
--- NOTE | 2025-04-17 18:36 | USR_ITS ---
PROCEDURE INFORMATION: Exam: US Retroperitoneal, Complete, Kidneys and Bladder Exam date and time: 04/17/2025 9:46 PM Age: 67 years old Clinical indication: Other: Kristofer TECHNIQUE: Imaging protocol: Real-time ultrasound of the retroperitoneum with image documentation. Complete exam focused on the bilateral kidneys and urinary bladder. COMPARISON: [place] [id number] 02/25/2025 5:46 PM FINDINGS: Right kidney: Upper pole right renal cyst measures 3.9 cm. Small cortical cyst in the midpole region measures about 1.1 cm. No urolithiasis or obstructive uropathy. Left kidney: The left kidney contains an upper pole cyst that measures 5 x 7 cm in the smaller cortical cysts that measured about 1.5 cm. No stones or obstruction in the left kidney. Urinary bladder: Bilateral ureteral jets were seen on color Doppler sonography. Patient was unable to void. Estimated bladder volume 1063 mL. US/US renal BI* [id number] IMPRESSION: Bilateral renal cysts.
--- NOTE | 2025-04-17 18:37 | PM.HP ---
Providers/Chief Complaint Primary Care Provider: Brent Samuel MD Chief Complaint: chest pain History of Present Illness Kristopher Jesus is a 67 year old male with a past medical history of heart deficiency anemia, CHF, morbid obesity, atrial fibrillation, on Xarelto, chronic hypoxic respiratory failure, who presents to [facility] due to chest pain. Currently patient alert oriented x 3, follow commands, he reports that he is A skilled nursing, his edema has significantly improved, he has lost over 50 pounds in fluid, but today he had substernal chest pain, associate with chest palpitations, no lightheadedness, dizziness, no fevers, chills, no cough, no flank pain, no abdominal pain, diarrhea, no cough, he is using all his medications as prescribed Review of Systems Const: Denies: fever(s) Card: Reports: chest pain and palpitations; Denies: syncope Resp: Denies: dyspnea Medications/Allergies Home Medications ?Medication ?Instructions ?Recorded ?Confirmed ?Last Taken ?Type cholecalciferol (vitamin D3) 125 125 mcg PO DAILY 12/14/20 03/21/25 03/20/25 08:00 History mcg (5,000 unit) tablet (Vitamin D3) auto CPAP 6-16 setting #1 ea 03/22/23 03/21/25 Unknown Rx amiodarone 200 mg tablet (Pacerone) 200 mg PO DAILY #100 tabs 06/18/24 03/21/25 03/20/25 08:00 Rx gemfibrozil 600 mg tablet 600 mg PO BID #200 tabs 06/18/24 03/21/25 03/20/25 17:00 Rx rivaroxaban 20 mg tablet 20 mg PO DAILY #100 tabs 06/18/24 03/21/25 03/20/25 08:00 Rx CPAP mask, tubing, supplies #1 ea 08/14/24 03/21/25 Unknown Rx acetaminophen 650 mg 650 mg PO Q12H PRN pain #60 tabs 08/14/24 03/21/25 03/19/25 22:00 Rx tablet,extended release (Tylenol Arthritis Pain) furosemide 40 mg tablet 40 mg PO BID@08,16 #60 tabs 03/04/25 03/21/25 03/20/25 17:00 Rx pantoprazole 40 mg tablet,delayed 40 mg PO BID #60 tabs 03/04/25 03/21/25 03/20/25 17:00 Rx release albuterol sulfate 2.5 mg/3 mL 2.5 mg inhalation Q4H PRN Dyspnea 03/21/25 03/21/25 03/20/25 01:00 History (0.083 %) solution for nebulization ammonium lactate 12 % topical cream 1 applic topical DAILY 03/21/25 03/21/25 Unknown History baclofen 5 mg tablet 5 mg PO Q8H PRN Muscle Spasm 03/21/25 03/21/25 03/20/25 08:00 History guaifenesin 100 mg/5 mL oral 200 mg PO Q4H PRN Cough 03/21/25 03/21/25 Unknown History liquid (Guaifed (guaifenesin)) menthol 2.5 mg-pectin 7 mg 1 agusto PO Q4H PRN Cough 03/21/25 03/21/25 Unknown History lozenges (Cough Drops (menthol-pectin)) nystatin 100,000 unit/gram topical 1 applic topical BID 03/21/25 03/21/25 03/20/25 17:00 History powder carvedilol 3.125 mg tablet 3.125 mg PO BID #180 tabs 03/25/25 03/21/25 03/20/25 17:00 Rx metolazone 5 mg tablet 2.5 mg (1/2 x 5 mg) PO DAILY 30 03/25/25 Unknown Rx days #30 tabs Allergies Allergy/AdvReac Type Severity Reaction Status Date / Time Penicillins Allergy ALGY-Difficulty Verified 03/01/25 14:12 Breathing PFSH Acute PFSH: Medical History Afib Heart failure with mildly reduced ejection fraction Cardiac murmur, previously undiagnosed Bilateral impacted cerumen Pre-diabetes Obstructive sleep apnea syndrome, severe Severe obstructive sleep apnea with hypoxia on 01/03/2023 study Basal cell carcinoma of right ear Chronic shortness of breath CKD (chronic kidney disease) stage 3, GFR 30-59 ml/min Cardiac arrest with ventricular fibrillation Chronic episodic atrial fibrillation Hx of adenomatous colonic polyps Last Colonoscopy 09/12/2020 with adenomatous polyp removed at 50 cm F/U 5 yrs Osteoarthritis Left bundle branch block History of alcohol abuse PVD (peripheral vascular disease) Morbid obesity with BMI of 50.0-59.9, adult CHF (congestive heart failure) CAD (coronary artery disease) Hx of myocardial infarction HTN (hypertension) Anemia in chronic kidney disease Hyperlipidemia Surgical History Hx of external ear surgery History of open reduction and internal fixation (ORIF) procedure Hx of foot surgery History of surgery on wrist Family History Mother No problems noted. Father No problems noted. Grandmother Diabetes Denies family history of CAD (coronary artery disease) Clotting disorder Dementia Chronic kidney disease (CKD) Suicide Anesthesia complication Bleeding disorder Lung disease Cancer Stroke Social History Smoking and tobacco/nicotine status: never used tobacco/nicotine Alcohol intake: never Substance/Drug Use: never Marital status: Single Number of children: 1 Current occupational status: disabled Vitals/I&O/Wt Last Vital Signs Temp 97.8 F 04/17/25 16:56 Pulse 132 H 04/17/25 18:36 Resp 16 04/17/25 17:57 BP 108/85 04/17/25 18:36 Pulse Ox 97 04/17/25 17:57 O2 Del Method Room Air 04/17/25 17:57 O2 Flow Rate 1 04/17/25 17:39 04/17/25 04/17/25 04/17/25 06:59 14:59 22:59 Intake Total 100 / 100 Balance 100 / 100 Weight last 48 hrs Weight 151.953 kg Weight 106.594 kg Physical Exam Const: COMMON NORMALS: no acute distress and patient oriented x3 HENMT: COMMON NORMALS: normocephalic HEAD & SCALP: normocephalic Eye: COMMON NORMALS: Equal, round and reactive pupils present and EOMs intact bilaterally Resp: COMMON NORMALS: normal respiratory effort, No retractions, No use of accessory muscles and clear to auscultation bilaterally AUSCULTATION: clear to auscultation bilaterally Cardio: COMMON NORMALS: no JVD, S1 normal heart sound present and S2 normal heart sound present RATE: tachycardic RHYTHM: abnormal rhythm irregularly irregular HEART SOUNDS: S1 normal heart sound present and S2 normal heart sound present GI: COMMON NORMALS: Normal to inspection, nondistended, normoactive bowel sounds present, Soft to palpation and non-tender : COMMON NORMALS: Yes no CVA tenderness Extremity: COMMON NORMALS: no calf tenderness and no pedal edema Neuro: COMMON NORMALS: patient oriented x3, CN's II-XII intact bilaterally and moves all extremities Psych: COMMON NORMALS: mental status grossly normal Skin: NARRATIVE SKIN EXAM: Right lower extremity stasis dermatitis, superficial skin changes Left lower extremity, no pitting edema, has superficial skin changes associate with stasis dermatitis, skin thickening Data 04/17/25 17:00 04/17/25 17:00 Micro: Microbiology 04/17/25 17:16 Blood Culture - Preliminary Blood SPECIMEN COLLECTED 04/17/25 17:14 Blood Culture - Preliminary Blood SPECIMEN COLLECTED A&P Assessment and plan 1. HTN (hypertension): 2. CHF (congestive heart failure): 3. Atrial fibrillation with rapid ventricular response: 4. Morbid obesity with BMI of 50.0-59.9, adult: Plan: Atrial fibrillation with rapid ventricular response - Admit to ICU - Continue IV amiodarone - IV Lovenox - Monitor respiratory status closely Uremia - No acute worsening of anemia - Elevated creatinine - Could be a component of diuresis, Lasix, Zaroxolyn - Monitor uremia CHRIS on CKD - Could be from Lasix, Zaroxolyn - Looks euvolemic - Hold off on further diuresis - Renal ultrasound - Place Menezes monitor urine output NSTEMI - No chest pain complaints - Type I versus type II Cardiac cath in 2021 Conclusions 1. Etiology of ventricular tachycardia/vfib likely hyperkalemia. 2. No disease noted in the Left Main, Left Anterior Descending, Right, or Circumflex coronary arteries. - Cardiac echo - Aspirin, statin - Therapeutic Lovenox Increased anion gap metabolic acidosis - Likely from CHRIS on CKD, uremia - Monitor CHF - Appears euvolemic hold diuretics History of sleep apnea, CPAP, ABG Acute on chronic anemia hemoglobin improved to 9.9 Full code Lovenox for DVT prophylaxis PDMP PDMP Reviewed: Not Reviewed Attestations Medical Necessity Statement*: Patient requires hospitalization, inpatient, greater than 2 midnights, for A-fib with RVR Diagnoses HTN (hypertension) I10 CHF (congestive heart failure) I50.9 Atrial fibrillation with rapid ventricular response I48.91 Morbid obesity with BMI of 50.0-59.9, adult E66.01; Z68.43
[2025-04-17 19:11] LABS: Troponin 5 2HR Delta 4.7 ABS# (0-10)
[2025-04-17 19:15] LABS: Troponin 5 2HR 153.7 ng/L (0-15)
[2025-04-17 19:16] LABS: Reflex Lactate Order REFLEX LACTIC ORDERD
[2025-04-17 19:32] LABS: Procalcitonin 0.25 ng/mL (0-0.5)
[2025-04-17 20:12] LABS: Lactic Acid level (Lactate) 0.9 mmol/L (0.5-2.2)
[2025-04-17 21:10] LABS: ABG PCO2 33.2 mmHg (35-45); ABG PH Result 7.45 (7.35-7.45); Arterial Blood Gas Hematocrit 29.5 % (42-52); Blood Gas Allen Test Pos; Blood Gas LPM 2.0 %; Blood Gas Sample Site Radial, right; Blood Gas Sample Type Arterial; HCO3 ABG 22.8 mmol/L (22-26); PO2 ABG 87.6 mmHg (80.0-100.0)
--- NOTE | 2025-04-17 22:55 | ECG_ITS ---
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
[2025-04-18] VITALS (119 sets, daily range): BP systolic 72–139; BP diastolic 45–113; PULSE 95–155; RESP 12–36; TEMP 36.8; O2SAT 80–99
[2025-04-18 00:05] LABS: Cholesterol 108 mg/dL (0-200); HDL Cholesterol 34 mg/dL (60-100); Triglycerides 100 mg/dL (0-150)
[2025-04-18 00:08] LABS: Glucose Urine UA Negative (Normal); Nitrate Urine Negative (Negative); Specific Gravity, Urine 1.011 (1.005-1.030)
[2025-04-18 00:11] LABS: Troponin 5 6HR 166.2 ng/L (0-15); Troponin 5 6HR Delta 17.2 ng/L (0-12)
[2025-04-18] MEDS: cefTRIAXone 1,000 mg SDV 1000 MG IVP ×2 (00:25→22:31)
[2025-04-18] MEDS: pantoprazole 40 mg SDV IVP ×3 (00:25→22:31)
[2025-04-18] MEDS: sucralfate 1 gm/10 mL Oral Liq UDC PO ×3 (00:26→22:30)
[2025-04-18 00:38] LABS: Estmated Average Glucose 91; Hemoglobin A1C 4.8 % (4.0-6.0)
[2025-04-18] MEDS: heparin drip 25,000 UNIT/500 ML PREMIX 34 UNIT IV (02:40)
[2025-04-18] MEDS: morphine 4 mg/mL SDV 1 mL 2 MG IVP ×2 (02:57→08:52)
--- NOTE | 2025-04-18 05:03 | W.PM.EVENTAC ---
Event Note Event Note: Patient urine was found to be dirty and cloudy, possible UTI? Event Notes Attestations Time Spent in Patient Care: UA sent and is suggestive of UTI , follow the urine cultures Patient started on ceftriaxone 1 g daily
[2025-04-18 06:21] LABS: Hematocrit 30.3 % (37-53); Hemoglobin 9.10 g/dL (11.27-16.99); Mean Corpuscular HGB Conc 30.0 g/dL (30-55); Mean Corpuscular Hemoglobin 25.8 pg (27-33); Mean Corpuscular Volume 85.8 fl (82-101); Nucleated Red Blood Cells % 0 %; Platelet Count 243 10^3/cmm (157-399); Red Blood Count 3.53 10^6/uL (3.85-5.65); White Blood Count 9.15 10^3/uL (3.29-11.43)
[2025-04-18 06:52] LABS: Alanine Aminotransferase < 5 U/L (0-41); Albumin Level 3.3 g/dL (3.5-5.2); Alkaline Phosphatase 57 U/L (40-130); Anion Gap 24.0 (5-19); Aspartate Amino Transferase 8 U/L (0-40); Calcium 10.4 mg/dL (8.5-10.5); Carbon Dioxide 21 mmol/L (22-29); Chloride 95 mmol/L (98-107); Creatinine Clr Calc Pharmacy 30.9549; Globulin 3.8 g/dL (1.3-4.6); Glucose 110 mg/dL (65-115); Magnesium 1.9 mg/dL (1.7-2.3); Osmolality Calculated 315 mOsm/kg (285-295); Potassium 4.0 mmol/L (3.5-5.1); Sodium 136 mmol/L (136-145); Total Protein 7.1 g/dL (6.6-8.7)
[2025-04-18 06:57] LABS: NT Pro B Type Natriuretic Pept 24782 pg/mL (0-125)
--- NOTE | 2025-04-18 07:18 | PC.NURSE ---
Pt was agreeable to montejo catheter after much encouragement. Had 1300 ml of purulent urinary return. Critical received from lab and made dr. duff aware, new order received for heparin gtt. Shortly thereafter noted hematuria with clots in montejo bag and showed physician before starting heparin. Ordered to go ahead and start gtt but monitor bleeding. Through evening, heavier bleeding was noted and Dr. Duff made aware. No new orders.
[2025-04-18 07:20] LABS: Blood Urea Nitrogen 104 mg/dL (8-23)
[2025-04-18 08:59] LABS: Partial Thromboplastin Time 50.5 SECONDS (23.9-36.7)
--- NOTE | 2025-04-18 09:01 | CT_ITS ---
WS: [id number] CT ABDOMEN PELVIS TECHNIQUE: Noncontrast CT of the abdomen and pelvis with coronal and sagittal reformatted images. CLINICAL INFORMATION: Lower abdominal pain, blood in [place] COMPARISON: None. DLP: 1333.[address] scans at [facility] use at least one of these dose optimization techniques: automated exposure control; mA and/or kV adjustment per patient size (includes targeted exams where dose is matched to clinical indication); or iterative reconstruction. FINDINGS: Atelectasis in the lung bases. Cardiomegaly. [place] catheter. Diffuse bladder wall thickening can be seen with chronic cystitis or bladder outlet obstruction. Rectosigmoid constipation. Sigmoid diverticulosis. Normal GE junction. Air-fluid level in the stomach. Normal noncontrast liver and pancreas. Normal noncontrast spleen. Bilateral adrenal thickening. A few tiny gallbladder calculi. No gallbladder wall thickening or pericholecystic fluid. No hydronephrosis in either kidney. Bilateral renal cysts. Some are too small to characterize and indeterminate. A few small increased attenuation renal cortical lesions may present hemorrhagic or proteinaceous cysts but indeterminate. No evidence of high-grade small or large bowel obstruction. Osteopenia. Mild chronic compression and anterior wedging in the upper lumbar spine. Advanced arthritis LEFT hip with subchondral cystic change and sclerosis. CT/CT abdomen pelvis wo con [id number] IMPRESSION: 1. Diffuse bladder wall thickening suspicious for cystitis. Prostate size appe ars normal. Recommend correlation for UTI. 2. Rectal constipation. 3. No hydronephrosis in either kidney. 4. Bilateral renal cysts. Some are too small to characterize. 5. A few tiny gallbladder calculi. 6. No other acute findings.
--- NOTE | 2025-04-18 09:05 | PC.NURSE ---
DR. Nobles ordered Heparin drop D/C.
[2025-04-18] MEDS: AMIODARONE HCL/D5W 900 MG/500 ML BAG 16.67 MG IV (12:09)
--- NOTE | 2025-04-18 14:16 | PC.NURSE ---
Menezes Irrigation: Dr. Nobles ordered Menezes advance and flush. This completed, Patient reports the advancement of Menezes has relieved his pain from 10/10 to 7/10. During irrigation, many small clots visible. Dr. Nobles ordered to repeat irrigation in 2 hours and if still having clots or not improving to start CBI. at 2 hour pasquale, patient reports less pain, and there are no clots seen. Urine is now a skip operator red than earlier. Dr. Nobles notified of findings and gave order to wait 2 hours and irrigate again. Holding on CBI at this time.
--- NOTE | 2025-04-18 14:18 | P.PN_ITS ---
Subjective 2 Subjective: - Patient was seen this morning - Denies any active chest pain - Denies shortness of breath - Remains in A-fib heart rates well-cont rolled, on amiodarone, denies any lightheadedness, no dizziness - He does complain of pain above his sukhdev dder, does have hematuria, discussed holding anticoagulant therapy, discussed risk benefits, he voiced understanding, all questions answered, agreed to proceed - Will do CT scan abdomen pelvis, Vitals/I&O/Wt Last Vital Signs Temp 98.2 F 04/18/25 09:00 Pulse 108 H 04/18/25 13:00 Resp 19 H 04/18/25 13:00 BP 95/56 04/18/25 13:00 Pulse Ox 89 L 04/18/25 13:00 O2 Del Method Room Air 04/18/25 13:00 O2 Flow Rate 1 04/18/25 00:00 04/17/25 04/18/25 04/18/25 22:59 06:59 14:59 Intake Total 100 / 100 306.08 / 406.08 724.042 / 724.042 Output Total 3450 / 3450 900 / 900 Balance 100 / 100 -3143.92 / -3043.92 -175.958 / -175.958 Weight last 48 hrs Weight 142.428 kg Weight 142.428 kg Weight 151.953 kg Weight 106.594 kg Physical Exam 2 Const: COMMON NORMALS: no acute distress and patient oriented x3 Resp: COMMON NORMALS: normal respiratory effort, No retractions, No use of accessory muscles and clear to auscultation bilaterally AUSCULTATION: clear to auscultation bilaterally Cardio: COMMON NORMALS: regular rate, regular rhythm, S1 normal heart sound present and S2 normal heart sound present RATE: regular rate RHYTHM: r egular rhythm HEART SOUNDS: S1 normal heart sound present and S2 normal heart sound present GI: COMMON NORMALS: Normal to inspection, nondistended, normoactive bowel sounds present and non-tender Extremity: COMMON NORMALS: no calf tenderness and no pedal edema Neuro: COMMON NORMALS: patient oriented x3 Psych: COMMON NORMALS: mental status grossly normal Urinary Catheter Management: Menezes Latex Free: Cath Placed During This Visit: yes Reason for Continuing Indwelling Catheter: Accurate Measurement of Urinary Output in Critically Ill Patients Urinary Catheter Date of Insertion: 04/17/25 Urinary Catheter Time of Insertion: 23:00 Data 04/18/25 05:47 04/18/25 05:47 Micro: Microbiology 04/17/25 17:16 Blood Culture - Preliminary Blood SPECIMEN COLLECTED 04/17/25 17:14 Blood Culture - Preliminary Blood SPECIMEN COLLECTED A&P Assessment and plan 1. HTN (hypertension): 2. CHF (congestive heart failure): 3. Atrial fibrillation with rapid ventricular response: 4. Morbid obesity with BMI of 50.0-59.9, adult: Plan: Atrial fibrillation with rapid ventricular response - Admit to ICU - Continue IV amiodarone - IV heparin on hold given hematuria - Monitor respiratory status closely Uremia - No acute worsening of anemia - Elevated creatinine - Could be a component of diuresis, Lasix, Zaroxolyn - Monitor uremia - IV hydration CHRIS on CKD - Could be from Lasix, Zaroxolyn - Looks euvolemic - IV hydration - Renal ultrasound US/US renal BI* [id number] IMPRESSION: Bilateral renal cysts - Place Menezes monitor urine output NSTEMI - No chest pain complaints currently - Type I versus type II Cardiac cath in 2021 Conclusions 1. Etiology of ventricular tachycardia/vfib likely hyperkalemia. 2. No disease noted in the Left Main, Left Anterior Descending, Right, or Circumflex coronary arteries. - Cardiac echo pending - Aspirin, statin - Heparin drip currently on hold Hematuria CT/CT abdomen pelvis wo con [id number] IMPRESSION: 1. Diffuse bladder wall thickening suspicious for cystitis. Prostate size appears normal. Recommend correlation for UTI. 2. Rectal constipation. 3. No hydronephrosis in either kidney. 4. Bilateral renal cysts. Some are too small to characterize. 5. A few tiny gallbladder calculi. 6. No other acute findings. Plan -Hold Lovenox -Monitor hemoglobin -Monitor Menezes catheter - Will consider CBI -If hematuria persist will consider transferring for urology evaluation Increased anion gap metabolic acidosis - Likely from CHRIS on CKD, uremia - Monitor CHF - Appears euvolemic hold diuretics History of sleep apnea, CPAP, ABG Acute on chronic anemia hemoglobin improved to 9.1 Full code Lovenox for DVT prophylaxis PDMP PDMP Reviewed: Not Reviewed Attestations 2 Medical Necessity Statement*: Patient requires hospitalization for atrial fibrillation, uremia, CHRIS, NSTEMI, hematuria Diagnoses HTN (hypertension) I10 CHF (congestive heart failure) I50.9 Atrial fibrillation with rapid ventricular response I48.91 Morbid obesity with BMI of 50.0-59.9, adult E66.01; Z68.43
[2025-04-18 15:10] LABS: Hematocrit 31.3 % (37-53); Hemoglobin 9.10 g/dL (11.27-16.99); Mean Corpuscular HGB Conc 29.1 g/dL (30-55); Mean Corpuscular Hemoglobin 25.7 pg (27-33); Mean Corpuscular Volume 88.4 fl (82-101); Nucleated Red Blood Cells % 0 %; Platelet Count 242 10^3/cmm (157-399); Red Blood Count 3.54 10^6/uL (3.85-5.65); White Blood Count 9.55 10^3/uL (3.29-11.43)
[2025-04-18 15:29] LABS: Troponin T (5th) Once 162 ng/L (0-15)
[2025-04-18 17:36] LABS: Anion Gap 25.0 (5-19); Calcium 10.3 mg/dL (8.5-10.5); Carbon Dioxide 20 mmol/L (22-29); Chloride 92 mmol/L (98-107); Creatinine Clr Calc Pharmacy 30.0445; Glucose 180 mg/dL (65-115); Osmolality Calculated 312 mOsm/kg (285-295); Potassium 4.0 mmol/L (3.5-5.1); Sodium 133 mmol/L (136-145)
[2025-04-18 17:42] LABS: Blood Urea Nitrogen 101 mg/dL (8-23)
--- NOTE | 2025-04-18 18:33 | PC.NURSE ---
Dr. Nobles notified of 1600 manual bladder irrigation results, [place] urine with no clotting. Dr. Nobles ordered one more manual flush at 1800 and then to monitor through the night. At 1800, urine is darker pink with no clots.
--- NOTE | 2025-04-18 18:37 | USCV_ITS ---
Kristopher Jesus Age: 67 Gender: M : 02/28/1958 Exam Date: 04/18/2025 15:55 Ordering Phys: Javier Nobles MD Technologist: DAVI Exam Location: [facility] [place] Indication: EF BP: 95 / 56 HR: Rhythm: Sinus Technical Quality: Adequate MEASUREMENTS (Male / Female) Normal Values 2D ECHO LV Diastolic Diameter PLAX 7.5 cm 4.2 - 5.9 / 3.9 - 5.3 cm IVS Diastolic Thickness 1.0 cm 0.6 - 1.0 / 0.6 - 0.9 cm IVS Systolic Thickness 1.2 cm LVPW Diastolic Thickness 1.2 cm 0.6 - 1.0 / 0.6 - 0.9 cm LVPW Systolic Thickness 1.0 cm LVOT Diameter 2.0 cm LV Ejection Fraction 2D Teich 11.2 % LV Ejection Fraction MOD 4C 50.4 % LV Ejection Fraction MOD 2C 62.5 % LV Ejection Fraction 2C AL 63.3 % LA Diameter 5.0 cm RA Systolic Volume 4C AL 56.3 ml RA Systolic Volume 4C MOD 53.9 ml LA Sys Volume AL 83.3 cm cubed LA Sys Volume Index AL 30.5 cm cubed/m squared Aorta at Sinotubular Diameter 2.9 cm M-MODE LA Ao Ratio MM 1.3 AV Cusp Separation MM 1.8 cm FINDINGS Left Ventricle Severe diffuse hypokinesia of the septum and inferior wall with dyskinetic LV apex. Moderately dilated LV cavity. LV ejection fraction around 15 to 20% (visual) Right Ventricle Normal right ventricular size and systolic function. Right Atrium Mildly increased right atrial size. Left Atrium Mildly increased left atrial size. IA Septum Possibly intact. No Doppler interrogation was done performed on the intra-atrial septum Mitral Valve Moderate mitral annular calcification. Aortic Valve No gross abnormalities noted Tricuspid Valve No gross abnormalities noted Pulmonic Valve Pulmonic valve not well visualized. Pericardium No pericardial effusion. Aorta Normal aortic annulus size. IVC Inferior vena cava not visualized. CONCLUSIONS From the study on 02/26/2025Severe diffuse hypokinesia of the septum and inferior wall with dyskinetic LV apex. Moderately dilated LV cavity. LV ejection fraction around 15 to 20% (visual). Mildly increased right atrial size. Mildly increased left atrial size. Possibly intact. No Doppler interrogation was done performed on the intra-atrial septum. Moderate mitral annular calcification. There is no pericardial effusion. There are no intracardiac masses. Compared to the study from 02/26/2025. There is a significant drop in the LV ejection fraction Dr Carly Mancia MD [facility] (Electronically Signed) Final Date: 18 April 2025 22:50 S
--- NOTE | 2025-04-18 20:20 | PC.NURSE ---
Hypotension Notified Dr. Duff regarding patients blood pressure readings, no new orders received at this time
[2025-04-18] MEDS: morphine 4 mg/mL SDV 1 mL 1 MG IVP (22:33)
[2025-04-19] VITALS (89 sets, daily range): BP systolic 67–145; BP diastolic 46–107; PULSE 59–146; RESP 14–33; TEMP 36.7–36.9; O2SAT 81–100; BMI 44.2
[2025-04-19] MEDS: morphine 4 mg/mL SDV 1 mL 1 MG IVP ×3 (02:47→20:10)
[2025-04-19 05:06] LABS: Hematocrit 28.7 % (37-53); Hemoglobin 8.50 g/dL (11.27-16.99); Mean Corpuscular HGB Conc 29.6 g/dL (30-55); Mean Corpuscular Hemoglobin 25.7 pg (27-33); Mean Corpuscular Volume 86.7 fl (82-101); Nucleated Red Blood Cells % 0 %; Platelet Count 223 10^3/cmm (157-399); Red Blood Count 3.31 10^6/uL (3.85-5.65); White Blood Count 9.48 10^3/uL (3.29-11.43)
[2025-04-19 05:34] LABS: Alanine Aminotransferase < 5 U/L (0-41); Albumin Level 3.1 g/dL (3.5-5.2); Alkaline Phosphatase 52 U/L (40-130); Anion Gap 20.7 (5-19); Aspartate Amino Transferase 8 U/L (0-40); Calcium 9.9 mg/dL (8.5-10.5); Carbon Dioxide 21 mmol/L (22-29); Chloride 98 mmol/L (98-107); Creatinine Clr Calc Pharmacy 32.9520; Globulin 3.3 g/dL (1.3-4.6); Glucose 114 mg/dL (65-115); Magnesium 1.8 mg/dL (1.7-2.3); Osmolality Calculated 315 mOsm/kg (285-295); Potassium 3.7 mmol/L (3.5-5.1); Sodium 136 mmol/L (136-145); Total Protein 6.4 g/dL (6.6-8.7)
[2025-04-19 05:54] LABS: Blood Urea Nitrogen 102 mg/dL (8-23)
[2025-04-19] MEDS: HYDROmorphone 0.5 MG/0.5 ML INJ IVP ×3 (07:57→17:14)
--- NOTE | 2025-04-19 08:26 | PC.NURSE ---
Dr. Nobles ordered to start heparin drip at 10 mls/hr.
[2025-04-19] MEDS: amiodarone 150 MG/100 ML PREMIX 400 MG IV (09:28)
[2025-04-19] MEDS: magnesium sulfate premix 1 GM/100 ML PIGGYBACK IV (09:28)
[2025-04-19] MEDS: lidocaine 1% 5 ML in potassium chloride premix 100 ML 52.5 ML IV (09:28)
[2025-04-19] MEDS: sucralfate 1 gm/10 mL Oral Liq UDC PO ×2 (09:43→22:13)
[2025-04-19] MEDS: pantoprazole 40 mg SDV IVP ×2 (09:43→22:13)
[2025-04-19 09:53] LABS: NT Pro B Type Natriuretic Pept 17574 pg/mL (0-125)
[2025-04-19] MEDS: AMIODARONE HCL/D5W 900 MG/500 ML BAG 33.33 MG IV (10:02)
--- NOTE | 2025-04-19 10:46 | ECG_ITS ---
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 Measurements Intervals [place] Rate: 105 P: 0 KS: 0 QRS: 18 QRSD: 197 T: 240 QT: 463 QTc: 613 Interpretive Statements ATRIAL FIBRILLATION WITH RAPID VENTRICULAR RESPONSE WITH ABERRANT CONDUCTION OR VENTRICULAR PREMATURE COMPLEXES LEFT BUNDLE BRANCH BLOCK [120+ ms QRS DURATION, 80+ ms Q/S IN V1/V2, 85+ ms R IN I/aVL/V5/V6] Compared to ECG 04/18/2025 01:36:10 Ventricular premature complex(es) now present Aberrant conduction of supraventricular beat(s) now present Electronically Signed On 04-20-2025 12:59:55 HOOKING MACHINE OPERATOR by Carly Mancia M.D. [email or web address]
--- NOTE | 2025-04-19 10:59 | PC.SOCIAL ---
IMM Updated Updated pt on IMM. No questions voiced. Provided pt a copy. Initialed, dated, & timed a copy & placed in chart.
[2025-04-19 11:04] LABS: ABG PCO2 34.9 mmHg (35-45); ABG PH Result 7.43 (7.35-7.45); Arterial Blood Gas Hematocrit 28.3 % (42-52); Blood Gas Allen Test Pos; Blood Gas LPM 2.0 %; Blood Gas Operator Identificat CAK; Blood Gas Sample Site Radial, left; Blood Gas Sample Type Arterial; HCO3 ABG 23.0 mmol/L (22-26); PO2 ABG 105.0 mmHg (80.0-100.0); PO2 FiO2 Ratio Arterial Blood 375
[2025-04-19 11:48] LABS: Lactic Sepsis W/Reflex 0.8 mmol/L (0.5-2.2)
[2025-04-19] MEDS: albumin 25 G/100 ML BAG 60 G IV ×2 (11:57→18:21)
[2025-04-19 12:16] LABS: Troponin(5th) Baseline 152 ng/L (0-15)
--- NOTE | 2025-04-19 12:29 | ECG_ITS ---
[facility]: 2025-04-19 Pat Name: Kristopher Jesus Department: Room: ICU06 Gender: Male Rfid Analyst: : 1958-02-28 Requested By: Javier Nobles Order Number: [id number] Reading MD: MIKAYLA ARROYO Measurements Intervals [place] Rate: 111 P: 0 RI: 0 QRS: 18 QRSD: 172 T: 207 QT: 388 QTc: 528 Interpretive Statements ATRIAL FIBRILLATION WITH RAPID VENTRICULAR RESPONSE LEFT BUNDLE BRANCH BLOCK [120+ ms QRS DURATION, 80+ ms Q/S IN V1/V2, 85+ ms R IN I/aVL/V5/V6] Compared to ECG 04/19/2025 10:46:14 Ventricular premature complex(es) no longer present Aberrant conduction of supraventricular beat(s) no longer present Electronically Signed On 04-20-2025 16:07:57 HOSE INSPECTOR by MIKAYLA ARROYO [email or web address]
--- NOTE | 2025-04-19 13:39 | XR_ITS ---
WS: [id number] PORTABLE CHEST HISTORY: post picc insertion COMPARISON: 04/17/2025 Patient is rotated and lordotic. Right-sided PICC line in good position with tip near the cavoatrial junction. No complications are evident. There is mild venous congestion. Pacer pad noted over the LEFT thorax. Cardiac size: Markedly enlarged heart. Mediastinum/Aorta: Wide mediastinum on the basis of positioning and cardiomegaly. No osseous abnormality seen. XR/XR chest 1V portable [id number] IMPRESSION: 1. Satisfactory position RIGHT PICC line. 2. Marked cardiomegaly.
--- NOTE | 2025-04-19 13:39 | PM.TDS ---
Transfer Summary Providers Date of Admission: 04/17/25 18:05 Date of Discharge/Transfer: 04/19/25 Attending Provider at Admission: Javier Nobles MD Attending Provider at Transfer: Javier Nobles MD Primary Care Provider: Brent Samuel MD Transfer Plans: Anticipated date of transfer: 04/19/25. Diagnoses at Discharge Discharge Diagnosis 1. Primary hypertension: 2. Chronic congestive heart failure, unspecified heart failure type: 3. Atrial fibrillation with rapid ventricular response: 4. Morbid obesity with BMI of 50.0-59.9, adult: 5. Cardiogenic shock: 6. Acute anemia: Reason for Visit Reason for Visit chest pain Hospital Course Hospital Course Kristopher Jesus is a 67 year old male with a past medical history of heart deficiency anemia, CHF, morbid obesity, atrial fibrillation, on Xarelto, chronic hypoxic respiratory failure, who presents to [facility] due to chest pain. Currently patient alert oriented x 3, follow commands, he reports that he is A long term, his edema has significantly improved, he has lost over 50 pounds in fluid, but today he had substernal chest pain, associate with chest palpitations, no lightheadedness, dizziness, no fevers, chills, no cough, no flank pain, no abdominal pain, diarrhea, no cough, he is using all his medications as prescribed Patient was admitted to [facility] for CHRIS on CKD, overdiuresis, possible cardiorenal syndrome, EF of 15 to 20%, multi factorial shock,, cardiogenic shock, component related to acute anemia with gross and persistent hematuria, with NSTEMI, with atrial fibrillation with rapid ventricle response, with urinary tract infection, with increased anion gap metabolic acidosis. Was monitored as inpatient with IV fluids, IV amiodarone, intermittent IV he anticoagulant therapy limited by gross hematuria and acute anemia. Due to persistent gross hematuria with acute anemia requiring blood transfusion with shock in the background of NSTEMI and new EF is 15 to 20% nonischemic worse ischemic cardiomyopathy and A-fib with RVR, patient was transferred for the need for higher level of care, urology and multidisciplinary team. Patient will be transferred to [facility]. Atrial fibrillation with rapid ventricular response - Admit to ICU - Continue IV amiodarone - IV heparin on hold given hematuria, did not tolerate IV heparin with recurrent hematuria - Monitor respiratory status closely Uremia, 102 - No acute worsening of anemia - Elevated creatinine - Could be a component of diuresis, Lasix, Zaroxolyn - Monitor uremia - IV hydration - Urine output 2.9 L, no acute indication for dialysis - Alert oriented x 3, follows all commands CHRIS on CKD, improving to 3.1 - Could be from Lasix, Zaroxolyn - Looks euvolemic -Could be component of cardiorenal syndrome given his EF of 15 to 20% - IV hydration for 24 hours, now placed on hold as patient is receiving blood, concern for fluid overload -Urine output 2.9 L - Renal ultrasound US/US renal BI* [id number] IMPRESSION: Bilateral renal cysts - Place Menezes monitor urine output - No acute indication for dialysis NSTEMI - No chest pain complaints currently -History of left bundle branch block - Type I versus type II Cardiac cath in 2021 Conclusions 1. Etiology of ventricular tachycardia/vfib likely hyperkalemia. 2. No disease noted in the Left Main, Left Anterior Descending, Right, or Circumflex coronary arteries. - Cardiac echo CONCLUSIONS From the study on 02/26/2025Severe diffuse hypokinesia of the septum and inferior wall with dyskinetic LV apex. Moderately dilated LV cavity. LV ejection fraction around 15 to 20% (visual). Mildly increased right atrial size. Mildly increased left atrial size. Possibly intact. No Doppler interrogation was done performed on the intra-atrial septum. Moderate mitral annular calcification. There is no pericardial effusion. There are no intracardiac masses. Compared to the study from 02/26/2025. There is a significant drop in the LV ejection fraction -Ischemic versus nonischemic cardiomyopathy -Discussed with patient that certainly this is a difficult situation, it is difficult to assess if if his EF dropping to 15 to 20% is due to CAD or secondary to a atrial fibrillation -However he has failed a trial of anticoagulant therapy due to gross hematuria and drop in his hemoglobin, -Discussed risk and benefits of holding anticoagulant therapy, shared decision making, he voiced understanding, all questions answered, agreed to proceed - Aspirin, statin - Heparin drip currently on hold due to gross hematuria, anemia - Maintain hemoglobin at greater than 8, transfuse 1 unit PRBC - No active chest pain, monitor - Fluid therapy stopped, as patient is receiving blood - Will require potentially stress testing versus coronary angiography Shock - Multifactorial - Component of cardiogenic shock given new EF 15 to 20% - Component of hemorrhagic shock, given acute anemia, gross hematuria - Monitor CBC - Placement plan will consider Levophed based on clinical progress Urinary tract infection, continue IV Rocephin Hematuria CT/CT abdomen pelvis wo con [id number] IMPRESSION: 1. Diffuse bladder wall thickening suspicious for cystitis. Prostate size appears normal. Recommend correlation for UTI. 2. Rectal constipation. 3. No hydronephrosis in either kidney. 4. Bilateral renal cysts. Some are too small to characterize. 5. A few tiny gallbladder calculi. 6. No other acute findings. Plan -Hold Lovenox -Monitor hemoglobin -Monitor Menezes catheter - CBI - Transfer for the need for urology Increased anion gap metabolic acidosis - Likely from CHRIS on CKD, uremia - Monitor CHF - Appears euvolemic hold diuretics History of sleep apnea, CPAP, ABG Acute on chronic anemia - He has had an EGD which showed gastritis, no bloody black stools -Secondary to gross hematuria -Anticoagulant therapy on hold Physical Exam Const: COMMON NORMALS: no acute distress and patient oriented x3 Eye: COMMON NORMALS: Equal, round and reactive pupils present and EOMs intact bilaterally PUPIL: Yes Equal, round and reactive pupils present Resp: COMMON NORMALS: normal respiratory effort, No retractions, No use of accessory muscles and clear to auscultation bilaterally AUSCULTATION: clear to auscultation bilaterally Cardio: COMMON NORMALS: regular rate, regular rhythm, S1 normal heart sound present and S2 normal heart sound present RATE: regular rate RHYTHM: regular rhythm HEART SOUNDS: S1 normal heart sound present and S2 normal heart sound present GI: COMMON NORMALS: Normal to inspection, nondistended, normoactive bowel sounds present, non-tender and no masses Extremity: COMMON NORMALS: no pedal edema Neuro: COMMON NORMALS: patient oriented x3, CN's II-XII intact bilaterally, moves all extremities and no focal motor deficits Psych: COMMON NORMALS: mental status grossly normal Urinary Catheter Management: Menezes Latex Free: Cath Placed During This Visit: yes Reason for Continuing Indwelling Catheter: Accurate Measurement of Urinary Output in Critically Ill Patients Urinary Catheter Date of Insertion: 04/17/25 Urinary Catheter Time of Insertion: 23:00 TS Data Studies Completed and Pending Pending at discharge Category Date Time Status Blood Culture Stat Lab 04/17/25 17:16 Results Complete Blood Count w/Auto AM LABS Lab 04/20/25 04:00 Ordered Comprehensive Metabolic Panel AM LABS Lab 04/20/25 04:00 Ordered Magnesium AM LABS Lab 04/20/25 04:00 Ordered Phosphorus AM LABS Lab 04/20/25 04:00 Ordered Platelet Count Q2D Lab 04/20/25 04:00 Ordered Platelet Count Q2D Lab 04/22/25 04:00 Ordered Troponin(5th) 2 Hour. Timed Lab 04/19/25 13:16 Ordered Troponin(5th) 6 hour. Timed Lab 04/19/25 17:16 Ordered Urine Culture Stat Lab 04/17/25 23:20 Results Completed Studies During Hospitalization Category Date Time Status CT abdomen pelvis wo con [id number] Routine Cat Scan 04/18/25 09:01 Completed XR chest 1V portable [id number] Stat Exams 04/17/25 16:55 Completed CV. echo limited [id number] Stat Ultrasound 04/18/25 18:37 Completed US renal BI* [id number] Stat Ultrasound 04/17/25 18:36 Completed Laboratory Last Values WBC 9.48 10^3/uL (3.29-11.43) 04/19/25 04:45 RBC 3.31 10^6/uL (3.85-5.65) L 04/19/25 04:45 Hgb 8.50 g/dL (11.27-16.99) L 04/19/25 04:45 Hct 28.7 % (37-53) L 04/19/25 04:45 MCV 86.7 fl (82-101) 04/19/25 04:45 MCH 25.7 pg (27-33) L 04/19/25 04:45 MCHC 29.6 g/dL (30-55) L 04/19/25 04:45 RDW 19.7 % (12.1-15.1) H 04/19/25 04:45 Plt Count 223 10^3/cmm (157-399) 04/19/25 04:45 MPV 9.9 fL (7.4-10.4) 04/19/25 04:45 Neut % (Auto) 82.3 % 04/19/25 04:45 Lymph % (Auto) 9.1 % 04/19/25 04:45 [place] % (Auto) 6.6 % 04/19/25 04:45 Eos % (Auto) 0.9 % 04/19/25 04:45 Baso % (Auto) 0.5 % 04/19/25 04:45 Neut # (Auto) 7.79 10^3/uL (1.8-7.7) H 04/19/25 04:45 Lymph # (Auto) 0.9 10^3/uL (0.8-4.8) 04/19/25 04:45 [place] # (Auto) 0.6 10^3/uL (0.2-0.9) 04/19/25 04:45 Eos # (Auto) 0.1 10^3/uL (0.0-0.8) 04/19/25 04:45 Baso # (Auto) 0.1 10^3/uL (0.0-0.1) 04/19/25 04:45 Nucleated RBC % (auto) 0 % 04/19/25 04:45 Nucleated RBCs # 0.0 /100WBC 04/19/25 04:45 APTT 50.5 SECONDS (23.9-36.7) H 04/18/25 08:31 Specimen Type Arterial 04/19/25 10:53 Sample Site Radial, left 04/19/25 10:53 ABG pH 7.43 (7.35-7.45) 04/19/25 10:53 ABG pCO2 34.9 mmHg (35-45) L 04/19/25 10:53 ABG pO2 105.0 mmHg (80.0-100.0) H 04/19/25 10:53 ABG PO2/FiO2 Ratio 375 04/19/25 10:53 ABG HCO3 23.0 mmol/L (22-26) 04/19/25 10:53 ABG Base Excess -1.1 mmol/L (-2.0-2.0) 04/19/25 10:53 Melvin Test Pos 04/19/25 10:53 Hematocrit 28.3 % (42-52) L 04/19/25 10:53 O2 Delivery Device Nc 04/19/25 10:53 O2 Liters/Min 2.0 % 04/19/25 10:53 FiO2 28.0 % 04/19/25 10:53 Circular Sawyer Helper ID Cak 04/19/25 10:53 Sodium 136 mmol/L (136-145) 04/19/25 04:45 Potassium 3.7 mmol/L (3.5-5.1) 04/19/25 04:45 Chloride 98 mmol/L (98-107) 04/19/25 04:45 Carbon Dioxide 21 mmol/L (22-29) L 04/19/25 04:45 Anion Gap 20.7 (5-19) H 04/19/25 04:45 BUN 102 mg/dL (8-23) H* 04/19/25 04:45 Creatinine 3.1 mg/dL (0.7-1.2) H 04/19/25 04:45 GFR Calculation 20.1 mL/min (90-130) L 04/19/25 04:45 Glucose 114 mg/dL (65-115) 04/19/25 04:45 Estimat Average Glucose 91 04/17/25 23:25 Hemoglobin A1c 4.8 % (4.0-6.0) 04/17/25 23:25 Calculated Osmolality 315 mOsm/kg (285-295) H 04/19/25 04:45 Lactic Acid 0.8 mmol/L (0.5-2.2) 04/19/25 11:16 Lactic Acid (Sepsis) 0.9 mmol/L (0.5-2.2) 04/17/25 19:45 Calcium 9.9 mg/dL (8.5-10.5) 04/19/25 04:45 Phosphorus 4.4 mg/dL (2.5-4.5) 04/19/25 04:45 Magnesium 1.8 mg/dL (1.7-2.3) 04/19/25 04:45 Total Bilirubin 0.3 mg/dL (0.15-1.2) 04/19/25 04:45 AST 8 U/L (0-40) 04/19/25 04:45 ALT < 5 U/L (0-41) 04/19/25 04:45 Alkaline Phosphatase 52 U/L (40-130) 04/19/25 04:45 Troponin T 5th Gen ng/L 162 ng/L (0-15) H* 04/18/25 14:52 Troponin T Baseline 152 ng/L (0-15) H* 04/19/25 11:16 Troponin T 120 Minute 153.7 ng/L (0-15) H 04/17/25 18:42 Delta Troponin T 4.7 ABS# (0-10) 04/17/25 18:42 Troponin T Hi Sens 6Hr 166.2 ng/L (0-15) H 04/17/25 23:25 Troponin T Hi Sens 6Hr Delta 17.2 ng/L (0-12) H* 04/17/25 23:25 C-Reactive Protein 133.3 mg/L (0.0-4.9) H 04/17/25 17:00 NT-Pro-B Natriuret Pep 02685 pg/mL (0-125) H 04/19/25 04:45 Total Protein 6.4 g/dL (6.6-8.7) L 04/19/25 04:45 Albumin 3.1 g/dL (3.5-5.2) L 04/19/25 04:45 Globulin 3.3 g/dL (1.3-4.6) 04/19/25 04:45 Triglycerides 100 mg/dL (0-150) 04/17/25 23:25 Cholesterol 108 mg/dL (0-200) 04/17/25 23:25 LDL Cholesterol, Calc 54 mg/dL (50-129) 04/17/25 23:25 HDL Cholesterol 34 mg/dL (60-100) L 04/17/25 23:25 LDL/HDL Ratio 1.59 RATIO (0.00-3.22) 04/17/25 23:25 Cholesterol/HDL Ratio 3.18 mg/dL (1.0-5.00) 04/17/25 23:25 Procalcitonin 0.25 ng/mL (0-0.5) 04/17/25 17:00 TSH 2.30 uIU/mL (0.27-4.20) 04/17/25 17:00 Urine Color [place] (Yellow) A 04/17/25 23:20 Urine Appearance Turbid (CLEAR) A 04/17/25 23:20 Urine pH 6.0 (5-7) 04/17/25 23:20 Ur Specific [place] 1.011 (1.005-1.030) 04/17/25 23:20 Urine Protein 2+ (Negative) A 04/17/25 23:20 Urine Glucose (UA) Negative (Normal) 04/17/25 23:20 Urine Ketones Negative (Negative) 04/17/25 23:20 Urine Blood 1+ (Negative) A 04/17/25 23:20 Urine Nitrate Negative (Negative) 04/17/25 23:20 Urine Bilirubin Negative (Negative) 04/17/25 23:20 Urine Urobilinogen 0.2 mg/dL (Negative) 04/17/25 23:20 Ur Leukocyte Esterase 3+ (Negative) A 04/17/25 23:20 Urine RBC 0-2 /hpf (0-2) 04/17/25 23:20 Urine WBC >100 /hpf (0-5) H 04/17/25 23:20 Ur Squamous Epith Cells 0-5 /hpf (0-5) 04/17/25 23:20 Amorphous Sediment Not Reportable 04/17/25 23:20 Urine Bacteria 4+ /hpf (NONE) H 04/17/25 23:20 Hyaline Casts 1.21 /lpf 04/17/25 23:20 Blood Type O Negative 04/19/25 08:45 Rho(D) Type Rh negative 04/19/25 08:45 Antibody Screen Negative 04/19/25 08:45 Crossmatch See Detail 04/19/25 08:45 Radiology Impressions Chest X-Ray 04/17/25 16:55 IMPRESSION: Left heart decompensation with interstitial edema, pulmonary vascular congestion and cardiomegaly. Renal Ultrasound 04/17/25 18:36 IMPRESSION: Bilateral renal cysts. Abdomen/Pelvis CT 04/18/25 09:01 IMPRESSION: 1. Diffuse bladder wall thickening suspicious for cystitis. Prostate size appears normal. Recommend correlation for UTI. 2. Rectal constipation. 3. No hydronephrosis in either kidney. 4. Bilateral renal cysts. Some are too small to characterize. 5. A few tiny gallbladder calculi. 6. No other acute findings. Recent Clincial Data Last Vital Signs Temp 98.1 F 04/19/25 10:23 Pulse 110 H 04/19/25 12:00 Resp 20 H 04/19/25 12:00 BP 102/70 04/19/25 12:00 Pulse Ox 94 04/19/25 12:00 O2 Del Method Nasal Cannula 04/19/25 12:00 O2 Flow Rate 2 04/19/25 12:00 Vital Signs Temp Pulse Resp BP Pulse Ox O2 Del Method O2 Del Method 04/19/25 12:00 110 H 20 H 102/70 94 Nasal Cannula 04/19/25 11:45 110 H 23 H 82/61 94 04/19/25 11:30 102 H 17 87/66 95 04/19/25 11:16 59 L 99 Nasal Cannula 04/19/25 11:15 96 17 80/62 96 04/19/25 11:00 108 H 19 H 88/59 96 04/19/25 10:45 109 H 18 116/70 94 04/19/25 10:30 108 H 19 H 116/70 95 04/19/25 10:23 98.1 F 122 H 20 H 98/74 91 04/19/25 10:15 116 H 17 98/75 98 04/19/25 10:07 98.1 F 104 H 19 H 98/75 96 04/19/25 10:00 98.5 F 102 H 33 H 95/69 93 Nasal Cannula 04/19/25 09:45 109 H 15 90/71 95 04/19/25 09:30 116 H 20 H 116/85 98 04/19/25 09:15 127 H 19 H 110/64 04/19/25 09:00 118 H 17 90/57 94 04/19/25 08:45 110 H 20 H 72/48 93 04/19/25 08:30 126 H 17 88/63 94 04/19/25 08:15 110 H 16 99/85 95 04/19/25 08:00 110 H 22 H 112/72 92 04/19/25 07:45 98.5 F 111 H 22 H 114/81 90 Nasal Cannula 04/19/25 07:30 102 H 31 H 116/68 96 04/19/25 07:15 106 H 18 67/46 97 04/19/25 07:00 119 H 18 104/56 95 04/19/25 06:45 113 H 16 75/54 97 04/19/25 06:30 123 H 21 H 84/59 95 04/19/25 06:15 111 H 22 H 87/55 95 04/19/25 06:01 107 H 04/19/25 06:00 109 H 20 H 102/62 04/19/25 05:45 112 H 19 H 99/80 04/19/25 05:30 102 H 19 H 99/80 04/19/25 05:15 110 H 18 82/57 93 04/19/25 05:00 141 H 17 90/60 94 04/19/25 04:45 98.2 F 117 H 18 93/49 94 Nasal Cannula 04/19/25 04:30 114 H 19 H 93/49 97 04/19/25 04:15 112 H 18 88/53 95 04/19/25 04:00 121 H 17 86/51 95 04/19/25 03:45 107 H 17 75/50 94 04/19/25 03:30 120 H 16 75/63 94 04/19/25 03:15 132 H 20 H 108/69 93 04/19/25 03:00 133 H 20 H 93/71 97 04/19/25 02:45 118 H 17 86/57 92 04/19/25 02:30 146 H 17 98/67 94 04/19/25 02:15 113 H 17 114/68 96 04/19/25 02:13 129 H 23 H 114/68 97 04/19/25 01:45 122 H 23 H 90/72 97 O2 Flow Rate O2 Flow Rate 04/19/25 12:00 2 04/19/25 11:45 04/19/25 11:30 04/19/25 11:16 2 04/19/25 11:15 04/19/25 11:00 04/19/25 10:45 04/19/25 10:30 04/19/25 10:23 04/19/25 10:15 04/19/25 10:07 04/19/25 10:00 2 04/19/25 09:45 04/19/25 09:30 04/19/25 09:15 04/19/25 09:00 04/19/25 08:45 04/19/25 08:30 04/19/25 08:15 04/19/25 08:00 04/19/25 07:45 2 04/19/25 07:30 04/19/25 07:15 04/19/25 07:00 04/19/25 06:45 04/19/25 06:30 04/19/25 06:15 04/19/25 06:01 04/19/25 06:00 04/19/25 05:45 04/19/25 05:30 04/19/25 05:15 04/19/25 05:00 04/19/25 04:45 2 04/19/25 04:30 04/19/25 04:15 04/19/25 04:00 04/19/25 03:45 04/19/25 03:30 04/19/25 03:15 04/19/25 03:00 04/19/25 02:45 04/19/25 02:30 04/19/25 02:15 04/19/25 02:13 04/19/25 01:45 Intake & Output/Weight 04/17/25 04/18/25 04/19/25 04/20/25 06:59 06:59 06:59 06:59 Intake Total 406.08 / 406.08 1444.042 / 2112.105 4347.167 / 1154.167 Output Total 3450 / 3450 2825 / 2825 Balance -3043.92 / -3043.92 -1380.958 / -5772.954 7338.167 / 1154.167 Weight 142.428 kg 144 kg Vitals Last Vital Signs Temp 98.1 F 04/19/25 10:23 Pulse 110 H 04/19/25 12:00 Resp 20 H 04/19/25 12:00 BP 102/70 04/19/25 12:00 Pulse Ox 94 04/19/25 12:00 O2 Del Method Nasal Cannula 04/19/25 12:00 O2 Flow Rate 2 04/19/25 12:00 TS Medications Medications Acetaminophen (Acetaminophen 325 Mg Tablet) 650 mg PO Q6H PRN PRN Reason: Mild/Mod Pain Or Temp >/= 101 Last Admin: 04/19/25 02:02 Dose: 650 mg Aspirin (Aspirin 81 Mg Ec Tablet) 81 mg PO DAILY [facility]I Last Admin: 04/19/25 04:45 Dose: 81 mg Atorvastatin Calcium (Atorvastatin 40 Mg Tablet) 40 mg PO BEDTIME [facility]I Last Admin: 04/18/25 20:41 Dose: 40 mg Ceftriaxone Sodium (Ceftriaxone 1,000 Mg Sdv) 1,000 mg IVP Q24H [facility]; Protocol Last Admin: 04/18/25 22:31 Dose: 1,000 mg Heparin Sodium (Porcine) (Heparin 5,000 Unit/Ml Inj 1 Ml) 0 unit IVP PRN PRN; Protocol PRN Reason: Heparin Weight Based Protocol -Subsequent Bolus Hydromorphone HCl (Hydromorphone 0.5 Mg/0.5 Ml Inj) 0.5 mg IVP Q4H PRN PRN Reason: PAIN Last Admin: 04/19/25 11:56 Dose: 0.5 mg Heparin Sodium/Sodium Chloride (Heparin Drip) 25,000 unit in 500 mls @ 36.469 mls/hr IV CONT [facility]; Protocol On Hold: 04/19/25 09:04 Last Titration: 04/18/25 09:06 Dose: 0 unit/kg/hr, 0 mls/hr AMIODARONE HCL/D5W (Amiodarone 900 Mg/500 Ml-D5w) 900 mg in 500 mls @ 0 mls/hr IV .Q0M [facility]; Protocol Last Admin: 04/19/25 10:02 Dose: 1 mg/min, 33.33 mls/hr Albumin Human (Albumin) 25 g in 100 mls @ 60 mls/hr IV Q8H [facility] Last Admin: 04/19/25 11:57 Dose: 60 mls/hr Morphine Sulfate (Morphine 4 Mg/Ml Sdv 1 Ml) 1 mg IVP Q4H PRN PRN Reason: SEVERE PAIN Last Admin: 04/19/25 02:47 Dose: 1 mg Naloxone HCl (Naloxone 0.4 Mg/Ml Sdv) 0.1 mg IVP Q2M PRN PRN Reason: OPIATERV Ondansetron HCl (Ondansetron 2 Mg/Ml Sdv 2 Ml) 4 mg IVP Q8H PRN PRN Reason: vomiting, or N/V if npo Pantoprazole Sodium (Pantoprazole 40 Mg Sdv) 40 mg IVP Q12H [facility] Last Admin: 04/19/25 09:43 Dose: 40 mg Sodium Chloride (Sodium Chloride 0.9% 100 Ml Bag) 50 ml IV PRN PRN PRN Reason: Blood transfusion prime and flush Stop: 04/20/25 07:58 Sucralfate (Sucralfate 1 Gm/10 Ml Oral Liq Udc) 1 gm PO Q12H [facility] Last Admin: 04/19/25 09:43 Dose: 1 gm Discontinued Medications Amiodarone HCl (Amiodarone 200 Mg Tablet) 400 mg PO BID [facility] Last Admin: 04/19/25 04:45 Dose: 400 mg Aspirin (Aspirin 81 Mg Chew Tablet) 324 mg PO ONCE ONE Stop: 04/17/25 16:55 Last Admin: 04/17/25 17:01 Dose: Not Given Diltiazem HCl (Diltiazem 30 Mg Tablet) 30 mg PO Q6H [facility] Last Admin: 04/19/25 07:57 Dose: 30 mg Enoxaparin Sodium (Enoxaparin 100 Mg/Ml Syringe) 150 mg 1 mg/kg (150 mg) SUBCUT Q24H [facility] Amiodarone HCl/Dextrose (Nexterone) 150 mg in 100 mls @ 400 mls/hr IV ONCE ONE Stop: 04/17/25 17:16 Last Infusion: 04/17/25 17:39 Dose: Infused AMIODARONE HCL/D5W (Amiodarone 900 Mg/500 Ml-D5w) 900 mg in 500 mls @ 0 mls/hr IV .Q0M [facility]; Protocol Last Admin: 04/18/25 12:09 Dose: 0.5 mg/min, 16.67 mls/hr Sodium Chloride (Sodium Chloride 0.9%) 1,000 mls @ 50 mls/hr IV .Q20H [facility] Last Infusion: 04/19/25 09:25 Dose: 0 mls/hr Magnesium Sulfate/Dextrose (Magnesium Sulfate Premix) 1 gm in 100 mls @ 200 mls/hr IV ONCE ONE Stop: 04/19/25 09:47 Last Admin: 04/19/25 09:28 Dose: 200 mls/hr Lidocaine HCl 5 ml/ Potassium (Chloride) 105 mls @ 52.5 mls/hr IV ONCE ONE Stop: 04/19/25 11:17 Last Admin: 04/19/25 09:28 Dose: 52.5 mls/hr Amiodarone HCl/Dextrose (Nexterone) 150 mg in 100 mls @ 400 mls/hr IV ONCE ONE Stop: 04/19/25 09:33 Last Admin: 04/19/25 09:28 Dose: 400 mls/hr Lidocaine HCl (Lidocaine 2% Urojet 20 Ml) 20 ml TOPICAL ONCE ONE Stop: 04/19/25 12:55 Morphine Sulfate (Morphine 4 Mg/Ml Sdv 1 Ml) 2 mg IVP Q4H PRN PRN Reason: SEVERE PAIN Last Admin: 04/18/25 08:52 Dose: 2 mg Allergies Penicillins Allergy (Verified 03/01/25 14:12) ALGY-Difficulty Breathing Home Medications cholecalciferol (vitamin D3) 125 mcg (5,000 unit) tablet (Vitamin D3) 125 mcg PO DAILY 12/14/20 [History Confirmed 04/18/25] auto CPAP 6-16 setting #1 ea 03/22/23 [Rx Confirmed 04/18/25] amiodarone 200 mg tablet (Pacerone) 200 mg PO DAILY #100 tabs 06/18/24 [Rx Confirmed 04/18/25] gemfibrozil 600 mg tablet 600 mg PO BID #200 tabs 06/18/24 [Rx Confirmed 04/18/25] rivaroxaban 20 mg tablet 20 mg PO DAILY #100 tabs 06/18/24 [Rx Confirmed 04/18/25] CPAP mask, tubing, supplies #1 ea 08/14/24 [Rx Confirmed 04/18/25] acetaminophen 650 mg tablet,extended release (Tylenol Arthritis Pain) 650 mg PO Q12H PRN pain #60 tabs 08/14/24 [Rx Confirmed 04/18/25] furosemide 40 mg tablet 40 mg PO BID@08,16 #60 tabs 03/04/25 [Rx Confirmed 04/18/25] pantoprazole 40 mg tablet,delayed release 40 mg PO BID #60 tabs 03/04/25 [Rx Confirmed 04/18/25] albuterol sulfate 2.5 mg/3 mL (0.083 %) solution for nebulization 2.5 mg inhalation Q4H PRN Dyspnea 03/21/25 [History Confirmed 04/18/25] ammonium lactate 12 % topical cream 1 applic topical DAILY 03/21/25 [History Confirmed 04/18/25] baclofen 5 mg tablet 5 mg PO Q8H PRN Muscle Spasm 03/21/25 [History Confirmed 04/18/25] guaifenesin 100 mg/5 mL oral liquid (Guaifed (guaifenesin)) 200 mg PO Q4H PRN Cough 03/21/25 [History Confirmed 04/18/25] menthol 2.5 mg-pectin 7 mg lozenges (Cough Drops (menthol-pectin)) 1 agusto PO Q4H PRN Cough 03/21/25 [History Confirmed 04/18/25] nystatin 100,000 unit/gram topical powder 1 applic topical BID PRN Skin Irritation 03/21/25 [History Confirmed 04/18/25] carvedilol 3.125 mg tablet 3.125 mg PO BID #180 tabs 03/25/25 [Rx Confirmed 04/18/25] ferrous sulfate 325 mg (65 mg iron) tablet 325 mg PO DAILY 04/18/25 [History Confirmed 04/18/25] metolazone 2.5 mg tablet 2.5 mg PO DAILY 04/18/25 [History Confirmed 04/18/25] multivitamin 1 tab PO DAILY 04/18/25 [History Confirmed 04/18/25] potassium chloride 20 mEq tablet,extended release(part/cryst) 40 meq PO BID 04/18/25 [History Confirmed 04/18/25] valsartan 160 mg tablet 160 mg PO DAILY 04/18/25 [History Confirmed 04/18/25] Discharge Plan Discharge Patient Disposition: Xfer [facility] Condition: Stable Prescriptions: No Action acetaminophen [Tylenol Arthritis Pain] 650 mg tablet extended release 650 mg PO Q12H PRN (Reason: pain) Qty: 60 1RF (DME) CPAP mask, tubing, supplies See Rx Instructions .ROUTE .MEDSUPPLY Qty: 1 1RF Rx Instructions: As directed (DME) auto CPAP 6-16 setting See Rx Instructions .Route .MEDSUPPLY Qty: 1 0RF Rx Instructions: As directed gemfibrozil 600 mg tablet 600 mg PO BID Qty: 200 3RF rivaroxaban 20 mg tablet 20 mg PO DAILY Qty: 100 3RF Rx Instructions: must administer with evening meal amiodarone [Pacerone] 200 mg tablet 200 mg PO DAILY Qty: 100 3RF cholecalciferol (vitamin D3) [Vitamin D3] 125 mcg (5,000 unit) Tablet 125 mcg PO DAILY furosemide 40 mg Tablet 40 mg PO BID@08,16 Qty: 60 2RF pantoprazole 40 mg tablet,delayed release (DR/EC) 40 mg PO BID Qty: 60 3RF nystatin 100,000 unit/gram Powder 1 applic TOPICAL BID PRN (Reason: Skin Irritation) baclofen 5 mg tablet 5 mg PO Q8H PRN (Reason: Muscle Spasm) albuterol sulfate 2.5 mg /3 mL (0.083 %) Solution For Nebulization 2.5 mg INHALATION Q4H PRN (Reason: Dyspnea) ammonium lactate 12 % Cream 1 applic TOPICAL DAILY Rx Instructions: apply to left lower leg topically every day shift for dry, flaky skin Cough Drops (menthol-pectin) 2.5-7 mg Lozenge 1 agusto PO Q4H PRN (Reason: Cough) guaifenesin [Guaifed (guaifenesin)] 100 mg/5 mL Liquid 200 mg PO Q4H PRN (Reason: Cough) carvedilol 3.125 mg tablet 3.125 mg PO BID Qty: 180 3RF Rx Instructions: must administer with a meal/food; hold for SBP less than 95 multivitamin Tablet 1 tab PO DAILY metolazone 2.5 mg tablet 2.5 mg PO DAILY potassium chloride 20 mEq tablet,ER particles/crystals 40 meq PO BID ferrous sulfate 325 mg (65 mg iron) Tablet 325 mg PO DAILY valsartan 160 mg tablet 160 mg PO DAILY Discharge Order = DC NOW: Transfer Out of Facility (Order); Ordered 04/19/25 Ordered By: Javier Nobles Referrals: [facility] [Outside] Brent Samuel MD [Primary Care Provider, Family Practice] Patient Instructions: Opioid Safety, Patient Portal & Erica Instructions Transfer Attestations Time Spent in Transfer Care: greater than 30 min Status at Transfer: Cognitive status at transfer: cognitively intact; Behavioral status at transfer: cooperative and can be uncooperative; Quality Metrics Clinical Quality Measures [ No reported AMI, CVA or VTE this stay] Coding Level of Care Code 50669 Total time (in minutes) for Discharge: 45 Diagnoses Primary hypertension I10 Hypertension type: primary hypertension Chronic congestive heart failure, unspecified heart failure type I50.9 Heart failure chronicity: chronic Heart failure type: unspecified Atrial fibrillation with rapid ventricular response I48.91 Morbid obesity with BMI of 50.0-59.9, adult E66.01; Z68.43 Cardiogenic shock R57.0 Acute anemia D64.9 Sepsis Event Note Evaluation Current stage of sepsis: sepsis Possible source: genitourinary Focused Exam Vital Signs Temp Pulse Resp BP Pulse Ox O2 Del Method O2 Del Method 04/19/25 13:42 16 99 04/19/25 12:00 110 H 20 H 102/70 94 Nasal Cannula 04/19/25 11:45 110 H 23 H 82/61 94 04/19/25 11:30 102 H 17 87/66 95 04/19/25 11:16 59 L 99 Nasal Cannula 04/19/25 11:15 96 17 80/62 96 04/19/25 11:00 108 H 19 H 88/59 96 04/19/25 10:45 109 H 18 116/70 94 04/19/25 10:30 108 H 19 H 116/70 95 04/19/25 10:23 98.1 F 122 H 20 H 98/74 91 04/19/25 10:15 116 H 17 98/75 98 04/19/25 10:07 98.1 F 104 H 19 H 98/75 96 04/19/25 10:00 98.5 F 102 H 33 H 95/69 93 Nasal Cannula 04/19/25 09:45 109 H 15 90/71 95 04/19/25 09:30 116 H 20 H 116/85 98 04/19/25 09:15 127 H 19 H 110/64 04/19/25 09:00 118 H 17 90/57 94 04/19/25 08:45 110 H 20 H 72/48 93 04/19/25 08:30 126 H 17 88/63 94 04/19/25 08:15 110 H 16 99/85 95 04/19/25 08:00 110 H 22 H 112/72 92 04/19/25 07:45 98.5 F 111 H 22 H 114/81 90 Nasal Cannula 04/19/25 07:30 102 H 31 H 116/68 96 04/19/25 07:15 106 H 18 67/46 97 04/19/25 07:00 119 H 18 104/56 95 04/19/25 06:45 113 H 16 75/54 97 04/19/25 06:30 123 H 21 H 84/59 95 04/19/25 06:15 111 H 22 H 87/55 95 04/19/25 06:01 107 H 04/19/25 06:00 109 H 20 H 102/62 04/19/25 05:45 112 H 19 H 99/80 04/19/25 05:30 102 H 19 H 99/80 04/19/25 05:15 110 H 18 82/57 93 04/19/25 05:00 141 H 17 90/60 94 04/19/25 04:45 98.2 F 117 H 18 93/49 94 Nasal Cannula 04/19/25 04:30 114 H 19 H 93/49 97 04/19/25 04:15 112 H 18 88/53 95 04/19/25 04:00 121 H 17 86/51 95 04/19/25 03:45 107 H 17 75/50 94 04/19/25 03:30 120 H 16 75/63 94 04/19/25 03:15 132 H 20 H 108/69 93 O2 Flow Rate O2 Flow Rate 04/19/25 13:42 04/19/25 12:00 2 04/19/25 11:45 04/19/25 11:30 04/19/25 11:16 2 04/19/25 11:15 04/19/25 11:00 04/19/25 10:45 04/19/25 10:30 04/19/25 10:23 04/19/25 10:15 04/19/25 10:07 04/19/25 10:00 2 04/19/25 09:45 04/19/25 09:30 04/19/25 09:15 04/19/25 09:00 04/19/25 08:45 04/19/25 08:30 04/19/25 08:15 04/19/25 08:00 04/19/25 07:45 2 04/19/25 07:30 04/19/25 07:15 04/19/25 07:00 04/19/25 06:45 04/19/25 06:30 04/19/25 06:15 04/19/25 06:01 04/19/25 06:00 04/19/25 05:45 04/19/25 05:30 04/19/25 05:15 04/19/25 05:00 04/19/25 04:45 2 04/19/25 04:30 04/19/25 04:15 04/19/25 04:00 04/19/25 03:45 04/19/25 03:30 04/19/25 03:15 Capillary refill: < 3 Seconds Peripheral pulse strength: 2+ Slightly Diminished Peripheral pulse location: Radial Date exam was performed: 04/19/25 Time exam was performed: 15:06 Problem List 1. Primary hypertension: Status: Acute 2. Chronic congestive heart failure, unspecified heart failure type: Status: Acute 3. Atrial fibrillation with rapid ventricular response: Status: Acute 4. Morbid obesity with BMI of 50.0-59.9, adult: Status: Acute 5. Cardiogenic shock: Status: Acute 6. Acute anemia: Status: Acute
[2025-04-19] MEDS: lidocaine 2% Urojet 20 mL TOPICAL (14:13)
[2025-04-19 14:15] LABS: Troponin 5 2HR Delta 1.9 ABS# (0-10)
--- NOTE | 2025-04-19 14:28 | P.PN_ITS ---
Subjective 2 Subjective: - Patient was examined multiple times th roughout the morning - This morning, MAP is 65-70, no chest p ain, no shortness of breath, on 2 L, resting comfortably, continues to have gross hematuria from Menezes catheter bag - Hemoglobin down to 8.5 -Currently in atrial fibrillation in and out of A-fib with RVR, - He does report lower abdominal pain, n o flank pain, discussed transfusing him 1 unit PRBC, no active chest pain, shortness of breath, he is on gentle IV hydration - Discussed his NSTEMI, his troponins at 152, his echocardiogram findings of EF of 15 to 20%, concern for component of cardiogenic shock nonischemic versus ischemic cardiomyopathy - The issue is he needs anticoagulant th erapy, for his NSTEMI however he continues to have hematuria - Discussed risk benefits of trial of an ticoagulant therapy, monitoring his hemoglobin, monitoring hematuria, if it worsens we will stop his heparin drip -Given persistent A-fib with RVR placed back on amiodarone drip -Discussed with patient that currently I believe he has multifactorial shock from his gross hematuria, anemia, cardiogenic shock, thus his soft blood pressures, also component related to overdiuresis, however he is putting a good amount of urine output, roughly 2.8 L, he is comfortably on 2 L, he is received fluids his creatinine is down to 3.1, uremia is improving, certainly his renal failure could be a component of cardiorenal syndrome, he is eventually going to need cardiology evaluation, but with his persistent gross hematuria, this needs to be taken care of before we place him on antiplatelet and anticoagulant therapy due to risk of morbidity and mortality, his care will need a multifactorial team which here at [facility] but we do not have urology - Will have to discuss his case with ameena gu - Will have to consider transfer to [facility] for need for urology due to gross hematuria - Patient voiced understanding, all ques tions answered, shared decision making, agreed to proceed - Heparin drip was resumed, IV fluids st opped, ordered for 1 unit PRBC, - Reexamined, has complaints of lower pe lvic discomfort, his gross hematuria has become much more significant in his Menezes bag, this is roughly an hour after starting heparin drip - Orders placed to stop heparin drip - Start CBI due to persistent hematuria - Discussed with patient the risk and be nefits of transfer for the need for urology, with his NSTEMI, his diminished ejection fraction, with hematuria, need of anticoagulation therapy/antiplatelet therapy with his hematuria, need for cystoscopy, he voiced understanding, all question answered, shared decision making, agrees to proceed, would like for me to try [facility] in [place] - Spoke to cardiology, patient had a cor onary angiogram in 2021 with no obstructive CAD, his creatinine is up to 3.1, BUN 102 with good urine output troponin 152, EKG no acute ST-T wave changes but does have a chronic LBBB, does have A-fib with RVR, cardiology favors nonischemic cardiomyopathy potential related to A-fib with RVR as an etiology however cannot rule out ischemic cardiomyopathy, but given patient's persistent and gross hematuria drop in hemoglobin, soft blood pressures they recommended transfer to tertiary level center for urology - Spoke to [facility] in [place] , spoke to the desulfurizer hand, my concern for multifactorial shock, from acute anemia, gross hematuria, cardiogenic shock, with NSTEMI, with CHRIS, with uremia, with new onset EF down to 30 to 20% I do not believe he has a component of septic shock given his normal lactic acid, but does have a UTI, my worry is patient is going to require ICU level care given his persistent soft blood pressures, currently not requiring pressors, maps are 65-70, he is resting comfortably on 2 L, but given his risk factors, he will likely require ICU level care however desulfurizer hand felt that patient is not a candidate for the ICU recommended transfer to stepdown unit, spoke to stepdown unit provider, who accepted patient in transfer - Spoke to patient about transfer, he is in agreement, heart rates in the low 100s, heart rates at 102/70, resting comfortably 2 L, good urine output, troponin 152, compared to yesterday was 162, EKG shows left bundle branch block, A-fib with RVR - Discussed risk benefits of transfer, h e voiced understanding, all questions answered Vitals/I&O/Wt Last Vital Signs Temp 98.1 F 04/19/25 10:23 Pulse 110 H 04/19/25 12:00 Resp 16 04/19/25 13:42 BP 102/70 04/19/25 12:00 Pulse Ox 99 04/19/25 13:42 O2 Del Method Nasal Cannula 04/19/25 12:00 O2 Flow Rate 2 04/19/25 12:00 04/18/25 04/19/25 04/19/25 22:59 06:59 14:59 Intake Total 720 / 9520.133 5263.167 / 1404.167 Output Total 1475 / 2375 450 / 2825 Balance -755 / -930.958 -450 / -9420.039 2641.167 / 1404.167 Weight last 48 hrs Weight 144 kg Weight 142.428 kg Weight 142.428 kg Weight 151.953 kg Weight 106.594 kg Physical Exam 2 Const: COMMON NORMALS: no acute distress and patient oriented x3 Resp: COMMON NORMALS: normal respiratory effort, No retractions, No use of accessory muscles and clear to auscultation bilaterally AUSCULTATION: clear to auscultation bilaterally Cardio: COMMON NORMALS: S1 normal heart sound present and S2 normal heart sound present RATE: tachycardic RHYTHM: abnormal rhythm irregularly irregular HEART SOUNDS: S1 normal heart sound present and S2 normal heart sound present GI: COMMON NORMALS: Normal to inspection, nondistended, normoactive bowel sounds present and non-tender Extremity: COMMON NORMALS: no pedal edema Neuro: COMMON NORMALS: patient oriented x3, CN's II-XII intact bilaterally and moves all extremities Psych: COMMON NORMALS: mental status grossly normal Urinary Catheter Management: Menezes Latex Free: Cath Placed During This Visit: yes Reason for Continuing Indwelling Catheter: Accurate Measurement of Urinary Output in Critically Ill Patients Urinary Catheter Date of Insertion: 04/17/25 Urinary Catheter Time of Insertion: 23:00 Data 04/19/25 04:45 04/19/25 04:45 Micro: Microbiology 04/17/25 23:20 Urine Culture - Preliminary Urine,Clean Catch Gram Negative Rods A&P Assessment and plan 1. HTN (hypertension): 2. CHF (congestive heart failure): 3. Atrial fibrillation with rapid ventricular response: 4. Morbid obesity with BMI of 50.0-59.9, adult: 5. Cardiogenic shock: 6. Acute anemia: Plan: Atrial fibrillation with rapid ventricular response - Admit to ICU - Continue IV amiodarone - IV heparin on hold given hematuria, did not tolerate IV heparin with recurrent hematuria - Monitor respiratory status closely Uremia, 102 - No acute worsening of anemia - Elevated creatinine - Could be a component of diuresis, Lasix, Zaroxolyn - Monitor uremia - IV hydration CHRIS on CKD, improving to 3.1 - Could be from Lasix, Zaroxolyn - Looks euvolemic -Could be component of cardiorenal syndrome given his EF of 15 to 20% - IV hydration placed on hold as patient is receiving blood - Renal ultrasound US/ renal BI* [id number] IMPRESSION: Bilateral renal cysts - Place Menezes monitor urine output NSTEMI - No chest pain complaints currently -History of left bundle branch block - Type I versus type II Cardiac cath in 2021 Conclusions 1. Etiology of ventricular tachycardia/vfib likely hyperkalemia. 2. No disease noted in the Left Main, Left Anterior Descending, Right, or Circumflex coronary arteries. - Cardiac echo CONCLUSIONS From the study on 02/26/2025Severe diffuse hypokinesia of the septum and inferior wall with dyskinetic LV apex. Moderately dilated LV cavity. LV ejection fraction around 15 to 20% (visual). Mildly increased right atrial size. Mildly increased left atrial size. Possibly intact. No Doppler interrogation was done performed on the intra-atrial septum. Moderate mitral annular calcification. There is no pericardial effusion. There are no intracardiac masses. Compared to the study from 02/26/2025. There is a significant drop in the LV ejection fraction -Ischemic versus nonischemic cardiomyopathy -Discussed with patient that certainly this is a difficult situation, it is difficult to assess if if his EF dropping to 15 to 20% is due to CAD or secondary to a atrial fibrillation -However he has failed a trial of anticoagulant therapy due to gross hematuria and drop in his hemoglobin, -Discussed risk and benefits of holding anticoagulant therapy, shared decision making, he voiced understanding, all questions answered, agreed to proceed - Aspirin, statin - Heparin drip currently on hold due to gross hematuria, anemia - Maintain hemoglobin at greater than 8, transfuse 1 unit PRBC - No active chest pain, monitor - Fluid therapy stopped, as patient is receiving blood - Will require potentially stress testing versus coronary angiography Shock - Multifactorial - Component of cardiogenic shock given new EF 15 to 20% - Component of hemorrhagic shock, given acute anemia, gross hematuria - Monitor CBC - Placement plan will consider Levophed based on clinical progress Urinary tract infection, continue IV Rocephin Hematuria CT/CT abdomen pelvis wo con [id number] IMPRESSION: 1. Diffuse bladder wall thickening suspicious for cystitis. Prostate size appears normal. Recommend correlation for UTI. 2. Rectal constipation. 3. No hydronephrosis in either kidney. 4. Bilateral renal cysts. Some are too small to characterize. 5. A few tiny gallbladder calculi. 6. No other acute findings. Plan -Hold Lovenox -Monitor hemoglobin -Monitor Menezes catheter - CBI - Transfer for the need for urology Increased anion gap metabolic acidosis - Likely from CHRIS on CKD, uremia - Monitor CHF - Appears euvolemic hold diuretics History of sleep apnea, CPAP, ABG Acute on chronic anemia - He has had an EGD which showed gastritis, no bloody black stools -Secondary to gross hematuria -Anticoagulant therapy on hold Full code Lovenox for DVT prophylaxis PDMP PDMP Reviewed: Not Reviewed Attestations 2 Medical Necessity Statement*: Patient requires hospitalization, for shock, acute anemia, gross hematuria, A- fib with RVR Diagnoses HTN (hypertension) I10 CHF (congestive heart failure) I50.9 Atrial fibrillation with rapid ventricular response I48.91 Morbid obesity with BMI of 50.0-59.9, adult E66.01; Z68.43 Cardiogenic shock R57.0 Acute anemia D64.9
[2025-04-19 14:40] LABS: Troponin 5 2HR 153.9 ng/L (0-15)
--- NOTE | 2025-04-19 15:18 | PICC.NOTE ---
Triple lumen PICC placed to right brachial vein. Referred to vascular access nurse for PICC placement due to need for vasopressors. Risks and benefits discussed and informed consent obtained from pt by Romy Grayson RN. Right arm assessed with right brachial vein measuring 3.9 mm, straight, and apparent best choice for placement. Using sterile technique and MST, right brachial vein accessed x 1 stick. Romy Grayson unable to pass guide wire. Maddie Garcia RN preceptor, successful with second attempt and new needle. Mid-arm circumference measured 10 cm from right AC 46 cm. Trimmed cath 43 cm with 0 cm external length noted. CXR shows tip in cavoatrial junction, in good position for use per radiologist. Line secured with stat-lock. Insertion site covered with Biopatch and TSM. Report given to bedside nurse, Ady, RN.
[2025-04-19 15:28] LABS: Hemoglobin 8.80 g/dL (11.27-16.99)
--- NOTE | 2025-04-19 15:56 | ECG_ITS ---
[facility] Date: 2025-04-19 Pat Name: Kristopher Jesus Department: Room: [facility] Gender: Male [place] Operator: : 1958-02-28 Requested By: Javier Nobles Order Number: [id number] Hamzah MD: MIKAYLA ARROYO Measurements Intervals [place] Rate: 96 P: 0 MO: 0 QRS: 10 QRSD: 238 T: 60 QT: 479 QTc: 606 Interpretive Statements ATRIAL FIBRILLATION WITH ABERRANT CONDUCTION OR VENTRICULAR PREMATURE COMPLEXES LEFT BUNDLE BRANCH BLOCK [120+ ms QRS DURATION, 80+ ms Q/S IN V1/V2, 85+ ms R IN I/aVL/V5/V6] Compared to ECG 04/19/2025 12:28:55 Ventricular premature complex(es) now present Aberrant conduction of supraventricular beat(s) now present Electronically Signed On 04-20-2025 16:07:46 ERP PM by MIKAYLA ARROYO [email or web address]
[2025-04-19 17:11] LABS: Hematocrit 29.7 % (37-53); Hemoglobin 8.70 g/dL (11.27-16.99); Mean Corpuscular HGB Conc 29.3 g/dL (30-55); Mean Corpuscular Hemoglobin 25.5 pg (27-33); Mean Corpuscular Volume 87.1 fl (82-101); Nucleated Red Blood Cells % 0 %; Platelet Count 191 10^3/cmm (157-399); Red Blood Count 3.41 10^6/uL (3.85-5.65); White Blood Count 8.49 10^3/uL (3.29-11.43)
[2025-04-19 17:27] LABS: Troponin 5 6HR 146.3 ng/L (0-15); Troponin 5 6HR Delta -5.7 ng/L (0-12)
[2025-04-19] MEDS: cefTRIAXone 1,000 mg SDV 1000 MG IVP (22:13)
== END 2025-04-19 23:13 | disposition short-term general hospital (02) | DRG 280 ==
LOC: ER 20:42 → ICU 21:52
PROVIDERS: Student in an Organized Health Care Education/Training Program; Admitting Provider Family Medicine; Emergency Provider Emergency Medicine; PCP Family Medicine; Visit Provider Family Medicine
DX: I48.20 Chronic atrial fibrillation, unspecified (principal); I50.23 Acute on chronic systolic (congestive) heart failure; I21.4 Non-ST elevation (NSTEMI) myocardial infarction; R57.8 Other shock; I13.0 Hypertensive heart and chronic kidney disease with heart failure and stage 1 through stage 4 chronic kidney disease, or unspecified chronic kidney disease; J96.11 Chronic respiratory failure with hypoxia; N17.9 Acute kidney failure, unspecified; Z68.43 Body mass index [BMI] 50.0-59.9, adult; E87.20 Acidosis, unspecified; N39.0 Urinary tract infection, site not specified; E66.01 Morbid (severe) obesity due to excess calories; I25.10 Atherosclerotic heart disease of native coronary artery without angina pectoris; D63.1 Anemia in chronic kidney disease; R31.0 Gross hematuria; I73.9 Peripheral vascular disease, unspecified; E78.5 Hyperlipidemia, unspecified; I25.5 Ischemic cardiomyopathy; R73.03 Prediabetes; N18.30 Chronic kidney disease, stage 3 unspecified; G47.33 Obstructive sleep apnea (adult) (pediatric); Z79.01 Long term (current) use of anticoagulants; Z79.899 Other long term (current) drug therapy; Z88.0 Allergy status to penicillin; Z85.828 Personal history of other malignant neoplasm of skin; Z86.74 Personal history of sudden cardiac arrest; Z86.0100 Personal history of colon polyps, unspecified; I25.2 Old myocardial infarction
CPT/HCPCS: 36415; 36430; 36573; 36592; 36600; 51702; 71045; 74176; 76770; 80048; 80053; 80061; 81001; 82803; 83036; 83605; 83735; 83880; 84100; 84145; 84443; 84484; 85018; 85025; 85730; 86140; 86850; 86900; 86920; 87040; 87077; 87086; 87186; 93005; 93308; 94664; 96365; 96366; 96375; 99285; A4222; C1751; J0282; J0283; J0696; J1171; J1644; J2270; J2470; J3475; J3480; J7030; J9999; P9040; P9046

== ENCOUNTER 2025-04-30 02:37 | Emergency (ER) | payer MEDICARE, MEDICAID, SELFPAY ==
--- OUTSIDE RECORDS SUMMARY | 2025-04-20 01:00 | XMS_ITS | Encounter Summary ---
Author Organization [facility] Address [address] [place] [address] Care Team Providers Care Data Warehouse Developer Name Role Phone Unavailable Primary Care Provider Unavailabl e Reason for Referral * Eval and Treat (Routine) - Closed Specialty Diagnoses / Procedures Referred By Contac t Referred To Contact Diagnoses Atrial fibrillation with rapid ventricular response (CMS/HCC) Procedures RI OFFICE/OUTPATIENT ESTABLISHED MOD MDM 30 MIN RI OFFICE/OUTPATIENT NEW MODERATE MDM 45 MINUTES Carlos Zendejas MD [address] [place] [address] Phone: tel: fax: Referral ID Status Reason Start Date Expiration Date Visits Re quested Visits Authorized [id number] Closed 04/29/2025 04/29/2026 1 1 NA EXPERT * Eval and Treat (5-7 Days) - Open Specialty Diagnoses / Procedures Referred By Contac t Referred To Contact Diagnoses Atrial fibrillation with rapid ventricular response (CMS/HCC) Procedures RI OFFICE/OUTPATIENT ESTABLISHED MOD MDM 30 MIN RI OFFICE/OUTPATIENT NEW MODERATE MDM 45 MINUTES Carlos Zendejas MD [address] [place] [address] Phone: tel: fax: Tara Jiang MD [address] [phone] Phone: tel: fax: Referral ID Status Reason Start Date Expiration Date Visits Re quested Visits Authorized [id number] Open 04/29/2025 04/29/2026 1 1 NA EXPERT Reason for Visit * Auth/Cert (Routine) Specialty Diagnoses / Procedures Referred By Contac t Referred To Contact Cardiology Diagnoses hematuria, [place] [address] [place] [phone] Phone: tel: fax: [facility] 4D Surgery Heart Lung [address] [place] [phone] Phone: tel: fax: Referral ID Status Reason Start Date Expiration Date Visits Re quested Visits Authorized [id number] 1 1 Encounter Details Date Type Department Care Team (Latest Contact Info) Description 04/20/2025 1:00 AM BANANA EXPERT - 04/29/2025 4:47 PM BANANA EXPERT Hospital Encounter [facility] 4B Cardiac [address] [place] [phone] [place] [address] [place] [phone] [place] [address] [place] [phone] [place] [address] [place] [phone] Komal Crandall MD [address] [place] [address] [place] [address] [place] [phone] Atrial fibrillation with rapid ventricular response ([facility]/HCC) Discharge Disposition: Intermediate Care Facility Social History Tobacco Use Types Packs/Day Years Used Date Smoking Tobacco: Never Smokeless Tobacco: Never Tobacco Cessation:Counseling Given: Not Answered Alcohol Use Standard Drinks/Week Comments Not Currently 0 (1 standard drink = 0.6 oz pur e alcohol) Food Insecurity Answer Date Recorded Do you find you are eating l ess than you should because you can t pay for food? No 04/23/2025 Transportation Needs Answer Date Record ed Have you gone without health care because you didn t have a way to get there? Or worry about transportation for future doctor visits, picker tender helper medication, etc.? No 2024 Housing Stability Answer Date Recorded Do you worry you won t have a steady place to sleep or struggle to pay rent or mortgage? No 04/23/2025 Utility Needs Answer Date Recorded Do you have difficulty payin g for utility costs (electric, water or gas bills)? No 04/23/2025 Medication Needs Answer Date Recorded Have you skipped taking medi cation due to cost or worry you can t afford new medications? No 04/23/2025 Feeling Safe Answer Date Recorded Are you in a relationship wi th someone who hurts you emotionally and/or physically? No 04/23/2025 Food Insecurity Answer Date Recorded Patient needs follow up regardin 04/20/2025 Transportation Needs Answer Date Record ed Patient needs follow up regardin 04/20/2025 Utility Needs Answer Date Recorded Patient needs follow up regardin 04/20/2025 Sex and Gender Information Value Date Recorded Sex Assigned at Not on file Legal Sex Male 10:33 AM BANANA EXPERT Gender Identity Not on file Sexual Orientation Not on file documented as of this encounter Last Filed Vital Signs Vital Sign Reading Time Taken Comments Blood Pressure 140/79 04/29/2025 4:31 PM BANANA EXPERT Pulse 109 04/29/2025 4:31 PM BANANA EXPERT Temperature 36.8 C (98.3 F) 04/29/2025 4:31 PM BANANA EXPERT Respiratory Rate 19 04/29/2025 4:31 PM BANANA EXPERT Oxygen Saturation 94% 04/29/2025 4:31 PM BANANA EXPERT Inhaled Oxygen Concentration - - Weight 151.2 kg (333 lb 6 oz) 04/29/2025 5:16 AM BANANA EXPERT Height 180.3 cm (5' 11 ) 04/20/2025 1:15 AM BANANA EXPERT Body Mass Index 46.5 04/20/2025 1:15 AM BANANA EXPERT documented in this encounter Discharge Summaries * Carlos Zendejas MD - 04/29/2025 2:[address] [facility] Hospitalist- Discharge Summary Kristopher Leblanc 67 y.o. male 02/28/1958 CSN: [id number] Date of Admission: 04/20/2025 Date of Discharge: 04/29/2025 LOS: 9 days Discharging Physician: Carlos Zendejas MD PCP: No primary care provider on file. Code Status at Discharge: Full Code Dispo: Jail Labs and studies from this hospitalization needing follow up: in . Abnormal Imaging: See imaging tab Follow up with PCP: You must follow up with No primary care provider on file. Follow up with Consultants: Pcp in 1 week. EP in 1 week. No future appointments. Discharge Condition: improving Primary Discharge Diagnosis: Atrial fibrillation with rapid ventricular response (CMS/HCC) Other Active medical issues also addressed during this admission: Active Hospital Problems Diagnosis Hyperparathyroidism Bilateral lower extremity edema Elevated troponin Atrial fibrillation with rapid ventricular response (CMS/HCC) CHRIS (acute kidney injury) Hematuria HFrEF (heart failure with reduced ejection fraction) (CMS/HCC) Resolved Hospital Problems No resolved problems to display. HOSPITAL COURSE: Kristopher Leblanc is a 67 y.o. male with obesity, atrial fibrillation, HFrEF, and recent hospitalizations who was transferred to [facility] after hospitalization for 2 days at OSH for A fib RVR who developed hematuria with anticoagulation. Upon arrival he was on amiodarone drip, montejo catheter with bloody output. Cardiology and urology were consulted. 04/20: getting VASCULAR TECHNOLOGIST med list; continue amio, heparin trial ok with urology; CBI 04/21: Cr worse, nephrology consulted; cystoscopy this AM; TTE pending; possible FRED/DCCV tomorrow, continue amio 04/22 assumed patient care. Patient seen at bedside, reported feeling well. Heparin was resumed today after discussion with urology. Cardioversion could not be completed given he was not on anticoagulation and potassium was 3.3. Replacing potassium. 04/23: Cardioversion completed this morning. Patient was in sinus rhythm at time of encounter. CBI clamped this morning per urology. No indication for intervention today per urology. N.p.o. today and reassessment in the a.m. for possible need for cystoscopy. Continues to be on heparin 04/24: Patient is back in A-fib with RVR, EP on board, amiodarone loading and Toprol try CBI clamped per urology today, urine only slightly pink-tinged, will continue to monitor, he will need outpatient follow-up for complete workup of hematuria Continue anticoagulation Will start discharge planning once heart rate is better controlled 04/25: Continues to be in A-fib with RVR, heart rate between 90-110, cardiology following Continues to have slightly pink-tinged urine, CBI clamped, urology following Nephrology following for CHRIS, overall renal function improving 04/26 Assumed care today. Persistent hematuria. Continue heparin drip since H&H is stable. Urology to perform cystoscopy tomorrow. N.p.o. past midnight. 04/27 S/p cystocsopy. No tumors noted. Cont CBI. Plan to clamp tomorrow. Appreciate urology help. Pain around penis site and all over. Patient requesting IV opoids that he received in the OR, whichwas fentanyl. Appears comfortable on my exam. --would order oxycodone 5 mg q8h prn for 2 days. Use opoids sparingly. --tylenol as primary pain control med. 04/28 --CBI clamped. Urology ordered to remove montejo. --still hematuria. H/h stable though. Discussed risks vs benefits or AC vs no AC. Patient wants to try half dose apixaban if ok with urology. Will discuss this with Dr. Reed today. --cont monitor h/h and urine for worsening hematuria. Transition to apixaban half dose after discussion with urology. Addendum: discussed with urology. Some hematuria is still expected on AC after his procedure yesterday. Would transition to half dose apixbaan today and monitor. 04/29 No new complaints. Passed TOV. Passing clear urine. Urology signed off. Patient is med ready for dc. EP to follow up outpatient as below (copy pasted): Will likely benefit from CRTD with AV node ablation. Plan it on outpatient. Discussed this with EP today. Patient is planned for this procedure outpatient. Cleared by EP for dc today. PCP COMMUNICATION : No primary care provider on file. via Epic communication MEDICATION CHANGES (significant): As below MEDICATION RECONCILIATION: Current and discharge medications reviewed and reconciled: Yes Consultants: IP CONSULT TO CARDIOLOGY IP CONSULT TO UROLOGY IP CONSULT TO IV TEAM IP CONSULT TO NEPHROLOGY IP CONSULT TO CARDIAC REHAB IP CONSULT TO WOUND/SKIN CARE TEAM Procedures performed: Procedure(s) (LRB): CYSTOURETHROSCOPY BLADDER FULGURATION (N/A) DISCHARGE MEDICATIONS: Medication List START taking these medications acetaminophen 325 mg tablet Commonly known as: TYLENOL Take 2 Tablets (650 mg) by mouth every 6 hours as needed for Other (See Comment) (See admin instructions). Signed by: Glen Zendejas MD Refills: 0 amiodarone 400 mg Tablet Commonly known as: CORDARONE Take 1 Tablet (400 mg) by mouth daily. Signed by: Glen Zendejas MD Refills: 0 apixaban 2.5 mg tablet Commonly known as: ELIQUIS Take 1 Tablet (2.5 mg) by mouth 2 times daily. Signed by: Glen Zendejas MD Refills: 0 metoprolol succinate 25 mg Extended Release 24 hour tablet Commonly known as: TOPROL XL Take 1 Tablet (25 mg) by mouth daily. Start taking on: April 30, 2025 Signed by: Glen Zendejas MD Refills: 0 polyethylene glycol 17 gram Powder in Packet Commonly known as: MIRALAX Take 1 Packet (17 Grams) by mouth daily. Start taking on: April 30, 2025 Signed by: Glen Zendejas MD Refills: 0 sennosides 8.6 mg tablet Commonly known as: SENOKOT Take 1 Tablet (8.6 mg) by mouth daily. Start taking on: April 30, 2025 Signed by: Glen Zendejas MD Refills: 0 Where to Get Your Medications Information about where to get these medications is not yet available Ask your nurse or doctor about these medications acetaminophen 325 mg tablet amiodarone 400 mg Tablet apixaban 2.5 mg tablet metoprolol succinate 25 mg Extended Release 24 hour tablet polyethylene glycol 17 gram Powder in Packet sennosides 8.6 mg tablet No future appointments. Activity level: up as tolerated Diet: DIET GENERAL Effective Now Wound Care: Dry flaky skin to left lower leg- Lac Hydrin 12% lotion to left lower leg dry skin and bilateral feet, avoid areas between toes. Bilateral gluteals and coccyx- Desitin 40% two times a day and prn soiling DISCHARGE EXAM: BP 110/67 (BP Location: Left arm, Patient Position (BP): Sitting) Pulse (!) 104 Temp 98.3 ??F (36.8 ??C) (Temporal) Resp 20 Ht 5' 11 (1.803 m) Wt (!) 151.2 kg (333 lb 6 oz) SpO2 98% BMI 46.50 kg/m?? Last documented weight: Weight: (!) 151.2 kg (333 lb 6 oz) (04/29/25 0516) General: alert, in no distress Neurologic: Grossly normal HEENT: atraumatic, Normocephalic, without obvious abnormality Lungs: clear to auscultation bilaterally, normal respiratory effort Heart: tachycardic, irregular rhythm Abdomen: obese, soft, nontender Extremities: BLE edema Skin: negative Home Healthcare Is this patient being discharged with Home Health? No Total time spent on discharge services today including examining and educating the patient and 0 available family members, writing prescriptions and reviewing the discharge medication list, documenting this discharge summary and coordinating outpatient care and follow up required >30 minutes. NA EXPERT documented in this encounter Discharge Instructions * Discharge Instructions* Carlos Zendejas MD - 04/23/2025 12:48 PM BANANA EXPERT Please follow up with Dr. Jiang (EP) in 1 week to discuss pacemaker placement. [facility] Discharge Instructions Discharge & Transfer patient to: Home Symptoms/Diagnosis: Atrial fibrillation with rapid ventricular response (CMS/HCC) Procedures Performed, if any: Procedure(s) (LRB): CYSTOURETHROSCOPY BLADDER FULGURATION (N/A) Follow up PCP Your physician, No primary care provider on file., has been notified of this hospitalization. Follow-up: You must follow up with No primary care provider on file. in 3-5 days Follow up consultants With EP/Cardiology If the office does not reach you to make a follow up appointment, please call [phone]. Activity level: up as tolerated DIET: DIET GENERAL Effective Now Follow up in the Emergency Room For any recurrence or worsening of admission concerns, chest pain, palpitations, shortness of breath, coughing blood, nausea, vomiting, diarrhea, pain, fever, chills, bleeding, bloody or tarry stools, change to urine or bowel output, Contact hospitalist office [phone] for questions if patients are discharged by [facility]. Thank you for participating in your heart failure education. It's really important to know how to take care of your heart! If you have any questions or need help, please ask us anytime. Thank you for allowing us to care for you during your hospital stay. Please feel free to call us with any questions you may have after you leave. We strive to provide excellent service. You may receive a phone call asking you to participate in asurvey regarding your stay at the hospital. We hope you will share your experiences with us and letus know if we have met this standard of excellence. We greatly value your feedback and look forwardto hearing from you. Take care, Staff [phone] Heart Failure means that your heart does not pump enough blood to meet your body???s needs. Sometimes fluid can back up into your lungs causing shortness of breath. Or fluid can back up into other parts of your body--you may notice swelling in your legs, feet or in your stomach area. As you retain fluid, your weight will go up. You may feel tired and not feel like eating. Most people tend to havethe same symptoms each time their heart failure worsens. Important steps you can take to be healthy Follow a low salt diet by using a salt substitute to season your food, choosing low or no salt foods and not adding additional salt to your meals. Monitor fluid intake. Restrict fluids if ordered by your provider. Take your medications as instructed Try to stay active. Rest when tired. If you are a SMOKER or use TOBACCO products, you are advised to QUIT! Heart failure zones give you an easy way to see changes in your heart failure symptoms. They also tell you when you need to get help. Check every day to see which zone you are in: HEART FAILURE ZONE MANAGEMENT EVERYDAY: Weigh yourself in the morning after going to the bathroom but before eating or drinking. Record your weight on your CHF Daily Record Sheet (in your Living With Heart Failure booklet) and compare it to the prior day???s weight. Take your medicine as prescribed. Check your feet, ankles, legs, and abdomen for swelling. Assess your breathing (was it difficult to lay flat or are you more short of breath). Eat low salt food. Balance activity and rest periods. What Heart Failure Zone are you today? GREEN, YELLOW, or RED? GREEN ZONE: All CLEAR when: Your weight is stable. You have no trouble breathing. You can do your normal activity. You have no changes in your symptoms. YELLOW ZONE: CAUTION! Call your health care provider today: Your Primary Care Team is available 03/01. Your weight goes up 2 pounds in one day or 3-tt-7-pound gradual weight gain over a week. You have more swelling in your feet, ankles, legs, or abdomen. Increased shortness of breath. You have a dry cough that does not go away. You use 2 or more pillows or a recliner to breathe better at night and this is new for you. You feel more tired or have less energy than usual. You have SIDE EFFECTS from your medicines. RED ZONE: MEDICAL ALERT EMERGENCY! CALL RIGHT AWAY when: You have unrelieved shortness of breath at rest or struggling to breathe. You have unrelieved chest pain. You have unrelieved wheezing or chest tightness at rest. You are having confusion or cannot think clearly. CALL 911 for severe shortness of breath or chest pain that will not go away. NA EXPERT NA EXPERT NA EXPERT * Attachments The following attachments cannot be sent through Care Everywhere. * Low Sodium: Reading a Food Label (Sri Lankan) * Amiodarone (Sri Lankan) * Apixaban (Sri Lankan) * Metoprolol (Sri Lankan) documented in this encounter Medications at Time of Discharge acetaminophen (TYLENOL) 325 mg tablet Take 2 Tablets (650 mg) by mouth every 6 hours as needed for Other (See Comment) (See admin instructions). 04/29/2025 amiodarone (CORDARONE) 400 mg Tablet Take 1 Tablet (400 mg) by mouth daily. 04/29/2025 apixaban (ELIQUIS) 2.5 mg tablet Take 1 Tablet (2.5 mg) by mouth 2 times daily. 04/29/2025 metoprolol succinate (TOPROL XL) 25 mg Extended Release 24 hour tablet Take 1 Tablet (25 mg) by mouth daily. 04/30/2025 polyethylene glycol (MIRALAX) 17 gram Powder in Packet Take 1 Packet (17 Grams) by mouth daily. 04/30/2025 sennosides (SENOKOT) 8.6 mg tablet Take 1 Tablet (8.6 mg) by mouth daily. 04/30/2025 documented as of this encounter Progress Notes * Whitney Butcher, CERTIFIED ETHICAL HACKER - 04/29/2025 3:11 PM CST Residential Carpet Installer Discharge Planning: Pt is agreeable with discharge plan/arrangements. Pt is understanding that he is returning as a private pay patient; he has declined PT & OT; therapies have signed off. Per therapy note, pt is at baseline. Expected Discharge Date Apr 29, 2025 04/29/25 1502 Discharge Planning Transportation Provider [facility] Transportation Contact Name Carlie Transportation Provider Phone [phone] Final Discharge Arrangements Final [facility]charge Disposition [facility] [place] [facility] Contact Name Admissions: [facility] Phone Number FAX DISCHARGE ORDERS 1ST: [phone]; REPORT; [facility] PLEASE ASK IF THERE IS A CUT OFF TIME FOR ACCEPTING Services Arranged For Discharge Transportation assistance Agency Name [facility] Agency Contact Name Carlie Agency Phone Number [phone] Date Of Pick-Up 04/29/25 Time Of Pick-Up 0300 Copy of this transfer form will be sent with patient along with: Pertinent Medical Records Discharge to predatory animal exterminator bed at [facility]. Plan Discharge To - Alternate: Medicaid certified nursing facility (04/28/25 1040) Referrals Status: Facility Referrals - Accepted Follow-up on Referrals Sent: No (04/28/25 1040) Preferred Pharmacy: [id number] [place] [id number] [address] [facility] Patient / Family Communications: Patient/Family Communications: Plan Discharge To Update (04/23/25 1210) Resources Provided Transportation Plan: [facility] dispatch Follow Up Appointments Scheduled Whitney Butcher LCSW NA EXPERT * Martha Escobar GN - 04/29/2025 11:31 AM CST Patient will not let RN take a picture of his bottom, educated on importance and purpose of the picture. Patient still refused. NA EXPERT * Cralton Perrin MD - 04/29/2025 9:06 AM CST Admit Date: 04/20/2025 Subjective: Patient upset about room situation Is voiding Current Facility-Administered Medications Medication Dose Route Frequency Provider Last Rate Last Admin [COMPLETED] magnesium SULFATE in water 2 gram/50 mL (4 %) IVPB 2 Gram 2 Gram IV ONE time only Carlos Zendejas MD Stopped at 04/28/25 1248 apixaban (ELIQUIS) tablet 2.5 mg 2.5 mg Oral BID Carlos Zendejas MD 2.5 mg at 04/29/25 0841 oxyCODONE (ROXICODONE) tablet 5 mg 5 mg Oral every 8 hours PRN Carlos Zendejas MD 5 mg at 04/27/25 1551 morphine 4 mg/mL injection 4 mg 4 mg IV ONE time only Rishabh Reed MD nitroglycerin (NITRO-BID) 2 % topical ointment 1 Inch 1 Inch Topical ONE time only Rishabh Reed MD ammonium lactate (LAC-HYDRIN) 12 % lotion Topical BID Rishabh Reed MD Given at 04/29/25 0900 zinc OXIDE-cod liver oil (DESITIN) 40 % topical paste Topical BID Rishabh Reed MD Given at 04/28/25 2127 metoprolol succinate (TOPROL XL) SR 24 hour tablet 25 mg 25 mg Oral daily Rishabh Reed MD 25 mg at 04/29/25 0841 ipratropium-albuteroL (DUONEB) 0.5 mg-3 mg(2.5 mg base)/3 mL inhalation solution 3 mL 3 mL Inhalation resp, every 4 hours PRN Rishabh Reed MD amiodarone (CORDARONE) tablet 400 mg 400 mg Oral BID Rishabh Reed MD 400 mg at 04/29/25 0841 naloxone (NARCAN) 0.4 mg/mL injection 0.1-0.4 mg 0.1-0.4 mg IV see admin instructions Rishabh Reed MD acetaminophen (TYLENOL) tablet 650 mg 650 mg Oral every 6 hours PRN Rishabh Reed MD 650 mg at 04/28/25 2125 polyethylene glycol (MIRALAX) packet 17 Gram 17 Gram Oral daily Rishabh Reed MD 17 Gram at 04/23/25 1041 sennosides (SENOKOT) tablet 8.6 mg 8.6 mg Oral daily Rishabh Reed MD 8.6 mg at 04/27/25 1249 [DISCONTINUED] cefTRIAXone (ROCEPHIN) 2,000 mg in sodium chloride 0.9% 50 mL IVPB (MBP) 2,000 mg IVdaily Rishabh Reed MD Stopped at 04/28/25 0859 [DISCONTINUED] heparin in 0.45% NaCl 25,000 unit/250 mL infusion 25 Units/kg/hr (Adjusted) IV titrate Rishabh Reed MD Stopped at 04/28/25 1000 Objective: Patient Vitals for the past 8 hrs: BP Temp Temp src Pulse Resp SpO2 Weight 04/29/25 0641 136/85 97.5 ??F (36.4 ??C) Temporal (!) 111 20 97 % -- 04/29/25 0516 107/72 97.8 ??F (36.6 ??C) Temporal 85 18 96 % (!) 151.2 kg (333 lb 6 oz) Intake/Output Summary (Last 24 hours) at 04/29/2025 0906 Last data filed at 04/29/2025 0330 Gross per 24 hour Intake 550 ml Output 1150 ml Net -600 ml Hospital Encounter on 04/20/25 (from the past 24 hours) HEMOGLOBIN AND HEMATOCRIT Collection Time: 04/28/25 1:21 PM Result Value Ref Range HEMOGLOBIN 8.7 (L) 14.0 - 18.0 g/dL HEMATOCRIT 28.2 (L) 41.0 - 53.0 % HEMOGLOBIN AND HEMATOCRIT Collection Time: 04/28/25 8:43 PM Result Value Ref Range HEMOGLOBIN 9.2 (L) 14.0 - 18.0 g/dL HEMATOCRIT 29.5 (L) 41.0 - 53.0 % CBC WITH DIFFERENTIAL Collection Time: 04/29/25 4:34 AM Result Value Ref Range WBC 9.3 4.8 - 10.8 K/uL RBC 3.49 (L) 4.60 - 6.20 M/uL HEMOGLOBIN 9.1 (L) 14.0 - 18.0 g/dL HEMATOCRIT 30.1 (L) 41.0 - 53.0 % MCV 86.2 84.0 - 103.0 fL MCH 26.1 (L) 27.0 - 34.0 pg MCHC 30.2 30.0 - 35.0 g/dL PLATELETS 213 140 - 440 K/uL MPV 9.7 8.9 - 12.8 fL RDW 19.9 (H) 11.0 - 14.5 % RDW-STDEV 60.8 (H) 37.0 - 54.0 fL NEUTROPHILS 81 (H) 42 - 75 % LYMPHOCYTES 9 (L) 24 - 44 % MONOCYTES 6 2 - 10 % EOSINOPHILS 2 0 - 7 % BASOPHILS 0 0 - 1 % IMMATURE GRANULOCYTES 2 0 - 2 % NEUTROPHIL ABSOLUTE 7.50 2.00 - 8.00 K/uL LYMPHOCYTE ABSOLUTE 0.82 (L) 1.20 - 4.00 K/uL MONOCYTE ABSOLUTE 0.60 0.10 - 0.60 K/uL EOSINOPHIL ABSOLUTE 0.17 0.00 - 0.70 K/uL BASOPHILS ABSOLUTE 0.04 0.00 - 0.20 K/uL IMMATURE GRANULOCYTES ABSOLUTE 0.18 (H) 0.00 - 0.10 K/uL SMEAR REVIEWED: NA - Not Applicable BASIC METABOLIC PANEL Collection Time: 04/29/25 4:34 AM Result Value Ref Range SODIUM 132 (L) 136 - 145 mmol/L POTASSIUM 3.7 3.5 - 5.1 mmol/L CHLORIDE 97 (L) 98 - 107 mmol/L CO2 22 22 - 29 mmol/L CALCIUM 12.1 (H) 8.8 - 10.2 mg/dL BUN 44 (H) 8 - 23 mg/dL CREATININE 1.47 (H) 0.67 - 1.17 mg/dL GLUCOSE 90 74 - 99 mg/dL GFR 52 (L) >=60 mL/min/1.73 sq meter ANION GAP 13 9 - 20 mmol/L MAGNESIUM LEVEL Collection Time: 04/29/25 4:34 AM Result Value Ref Range MAGNESIUM 2.0 1.6 - 2.4 mg/dL UNFRACTIONATED HEPARIN MONITORING Collection Time: 04/29/25 4:34 AM Result Value Ref Range ANTI-XA UNFRAC HEP PTT Collection Time: 04/29/25 4:34 AM Result Value Ref Range PTT 39.3 (H) 24.8 - 37.2 seconds Narrative Therapeutic Range: Hi-level PE/DVT heparin protocol 80.1 - 95.0 sec Lo-level PE/DVT heparin protocol 70.1 - 85.0 sec Cardiac Heparin Protocol 70.1 - 100.0 sec Awake and alter Normal resp effort Abdomen obese and soft Urine clear Data Review: CBC: Lab Results Component Value Date/Time WBC 9.3 04/29/2025 04:34 AM RBC 3.49 (L) 04/29/2025 04:34 AM HGB 9.1 (L) 04/29/2025 04:34 AM HCT 30.1 (L) 04/29/2025 04:34 AM PLT 213 04/29/2025 04:34 AM BMP: Lab Results Component Value Date/Time GLUCOSE 90 04/29/2025 04:34 AM NA 132 (L) 04/29/2025 04:34 AM K 3.7 04/29/2025 04:34 AM CL 97 (L) 04/29/2025 04:34 AM CO2 22 04/29/2025 04:34 AM BUN 44 (H) 04/29/2025 04:34 AM CREAT 1.47 (H) 04/29/2025 04:34 AM CA 12.1 (H) 04/29/2025 04:34 AM Assessment: Principal Problem: Atrial fibrillation with rapid ventricular response (CMS/HCC) Active Problems: CHRIS (acute kidney injury) Hematuria HFrEF (heart failure with reduced ejection fraction) (CMS/HCC) Hyperparathyroidism Bilateral lower extremity edema Elevated troponin Plan: No further intervention at this time Recall with any acute issues Patient voiding clear urine NA EXPERT * Librado Ferrer PHARMACIST - 04/28/2025 10:18 AM CST RX ANTICOAG MONITORING ORDERS Pharmacy to order, review, and report clinically significant changes in lab per [facility] Anticoagulation Protocol as follows: Orders for dosing changes and follow-up labs will be signed ???Per Protocol?? in Epic. The name ofthe provider signed on the follow-up orders for cosignature will be assigned as follows: Orders placed by members of the Telephone Messenger or Hospitalist physician groups: If the original ordering provider is no longer the attending physician for the patient, responsibility for cosignature of the follow-up medication orders and labs will transfer from the original ordering provider to the current attending physician. Orders placed by any other provider: Responsibility for cosignature of the follow-up medication orders and labs will remain with the original ordering provider of the anticoagulant order. Pharmacy will order appropriate labs as indicated by the [facility] Anticoagulation Monitoring policy located on [facility] intranet, unless already ordered. The medications that will be monitored include (but are not limited to): Low molecular weight heparin, heparin, and fondaparinux Direct Thrombin Inhibiors (argatroban, bivalirudin dabigatran lepirudin) Warfarin Direct oral anticoagulants (rivaroxaban, apixaban, edoxaban) Pharmacy will order labs for patients not on a heparin protocol, warfarin protocol, or anticoagulant protocol. Nursing to order labs required as indicated by those protocols. This policy is in compliance with the [employer] National Patient Safety Goal 3E and authorized by the [facility] Pharmacy and Therapeutics Committee. Cosigned by Yulissa Zendejas MD at 04/28/2025 6:56 PM BANANA EXPERT NA EXPERT NA EXPERT * Carlos Zendejas MD - 04/28/2025 9:54 AM CST Images from the original note were not included. Your life is our life's work [facility] Hospitalist/Hospital Medicine Progress Note LOS: 8 days Room/Bed: 4267/ Patient name: Kristopher Leblanc Date of : 02/28/1958 HOSPITAL COURSE SUMMARY: Kristopher Leblanc is a 67 y.o. male with obesity, atrial fibrillation, HFrEF, and recent hospitalizations who was transferred to [facility] after hospitalization for 2 days at OSH for A fib RVR who developed hematuria with anticoagulation. Upon arrival he was on amiodarone drip, montejo catheter with bloody output. Cardiology and urology were consulted. 04/20: getting VASCULAR TECHNOLOGIST med list; continue amio, heparin trial ok with urology; CBI 04/21: Cr worse, nephrology consulted; cystoscopy this AM; TTE pending; possible FRED/DCCV tomorrow, continue amio 04/22 assumed patient care. Patient seen at bedside, reported feeling well. Heparin was resumed today after discussion with urology. Cardioversion could not be completed given he was not on anticoagulation and potassium was 3.3. Replacing potassium. 04/23: Cardioversion completed this morning. Patient was in sinus rhythm at time of encounter. CBI clamped this morning per urology. No indication for intervention today per urology. N.p.o. today and reassessment in the a.m. for possible need for cystoscopy. Continues to be on heparin 04/24: Patient is back in A-fib with RVR, EP on board, amiodarone loading and Toprol try CBI clamped per urology today, urine only slightly pink-tinged, will continue to monitor, he will need outpatient follow-up for complete workup of hematuria Continue anticoagulation Will start discharge planning once heart rate is better controlled 04/25: Continues to be in A-fib with RVR, heart rate between 90-110, cardiology following Continues to have slightly pink-tinged urine, CBI clamped, urology following Nephrology following for CHRIS, overall renal function improving 04/26 Assumed care today. Persistent hematuria. Continue heparin drip since H&H is stable. Urology to perform cystoscopy tomorrow. N.p.o. past midnight. 04/27 S/p cystocsopy. No tumors noted. Cont CBI. Plan to clamp tomorrow. Appreciate urology help. Pain around penis site and all over. Patient requesting IV opoids that he received in the OR, whichwas fentanyl. Appears comfortable on my exam. --would order oxycodone 5 mg q8h prn for 2 days. Use opoids sparingly. --tylenol as primary pain control med. 04/28 --CBI clamped. Urology ordered to remove montejo. --still hematuria. H/h stable though. Discussed risks vs benefits or AC vs no AC. Patient wants to try half dose apixaban if ok with urology. Will discuss this with Dr. Reed today. --cont monitor h/h and urine for worsening hematuria. Transition to apixaban half dose after discussion with urology. Addendum: discussed with urology. Some hematuria is still expected on AC after his procedure yesterday. Would transition to half dose apixbaan today and monitor. Consultants: IP CONSULT TO CARDIOLOGY IP CONSULT TO UROLOGY IP CONSULT TO IV TEAM IP CONSULT TO NEPHROLOGY IP CONSULT TO CARDIAC REHAB IP CONSULT TO WOUND/SKIN CARE TEAM SUBJECTIVE: Feels better today. Denies any n/v/f/c. Discussed full dose AC with patient in detail today. ROS: Limited ROS negative otherwise OBJECTIVE: Temp (24hrs), Av.6 ??F (36.4 ??C), Min:97.2 ??F (36.2 ??C), Max:98.1 ??F (36.7 ??C) BP 113/77 Pulse 99 Temp 97.6 ??F (36.4 ??C) (Temporal) Resp 17 Ht 5' 11 (1.803 m) Wt (!)143.1 kg (315 lb 7.7 oz) SpO2 92% BMI 44.00 kg/m?? Intake/Output Summary (Last 24 hours) at 04/28/2025 1002 Last data filed at 04/28/2025 0600 Gross per 24 hour Intake 3595 ml Output 5900 ml Net -2305 ml Last documented weight: Weight: (!) 143.1 kg (315 lb 7.7 oz) (04/26/25 0228) EXAM: General: alert, in no distress Neurologic: Grossly normal HEENT: atraumatic, Normocephalic, without obvious abnormality Lungs: clear to auscultation bilaterally, normal respiratory effort Heart: tachycardic, irregular rhythm Abdomen: obese, soft, nontender Extremities: BLE edema Skin: negative Unchanged from yesterday LABORATORY: Recent Labs 04/25/25 1111 04/25/25 1709 04/26/25 0035 04/26/25 0456 04/26/25 1140 04/26/25 1758 04/27/25 0023 04/27/25 0528 04/27/25 1539 04/27/25 1816 04/28/25 0009 04/28/255 WBC -- -- -- 6.5 -- -- -- 6.8 -- -- -- 9.0 HGB 8.4* 8.4* 8.1* 8.4* 8.3* 8.7* 8.3* 8.2* 9.2* 8.8* 8.2* 8.3* HCT 28.1* 27.8* 25.9* 28.0* 27.9* 28.6* 26.9* 27.5* 30.8* 28.9* 27.1* 27.1* PLT -- -- -- 194 -- -- -- 195 -- -- -- 186 Recent Labs 04/26/25 0456 04/27/25 0528 04/28/25454 NA 138 137 132* K 4.1 4.1 4.1 CL 102 101 96* CO2 19* 20* 20* CA 10.8* 11.0* 10.8* BUN 56* 45* 42* CREAT 1.76* 1.48* 1.39* GLUCOSE 79 75 94 No results for input(s): TOTALPROTEIN , ALBUMIN , BILITOTAL , ALKPHOS , AST , ALT in the last 72 hours. No results for input(s): INR , PT in the last 72 hours. Invalid input(s): PTT Recent Labs 04/27/25 18104/27/25202404/28/25 000 BASETROP 72* -- -- 2HRTROP -- 74* -- DELTA -- 2 2 6HRTROP -- -- 74* Diagnostic testing reviewed by me: Medications were reviewed by me. Current Facility-Administered Medications: magnesium SULFATE in water 2 gram/50 mL (4 %) IVPB 2 Gram, 2 Gram, IV, ONE time only, Carlos Zendejas MD apixaban (ELIQUIS) tablet 2.5 mg, 2.5 mg, Oral, BID, Carlos Zendejas MD [] diphenhydrAMINE (BENADRYL) injection 12.5 mg, 12.5 mg, IV, post-proc one time PRN, Shayan León MD oxyCODONE (ROXICODONE) tablet 5 mg, 5 mg, Oral, every 8 hours PRN, Carlos Zendejas MD, 5 mg at 04/27/25 1551 [DISCONTINUED] fentaNYL (PF) (SUBLIMAZE) 50 mcg/mL injection 50 mcg, 50 mcg, IV, post-proc every 3 minutes PRN, Shayan León MD, 50 mcg at 04/27/25 1049 [DISCONTINUED] HYDROmorphone (PF) (DILAUDID) injection 0.5 mg, 0.5 mg, IV, post- proc every 5 minutes PRN, Shayan León MD [DISCONTINUED] ondansetron (ZOFRAN) 4 mg/2 mL injection 4 mg, 4 mg, IV, post- proc one time PRN, Shayan León MD [DISCONTINUED] diphenhydrAMINE (BENADRYL) injection 12.5 mg, 12.5 mg, IV, post- proc one time PRN, Shayan León MD morphine 4 mg/mL injection 4 mg, 4 mg, IV, ONE time only, Rishabh Reed MD nitroglycerin (NITRO-BID) 2 % topical ointment 1 Inch, 1 Inch, Topical, ONE time only, Rishabh Reed MD ammonium lactate (LAC-HYDRIN) 12 % lotion, , Topical, BID, Rishabh Reed MD, Given at 04/28/25 0833 zinc OXIDE-cod liver oil (DESITIN) 40 % topical paste, , Topical, BID, Rishabh Reed MD, Given at 04/28/25 0834 metoprolol succinate (TOPROL XL) SR 24 hour tablet 25 mg, 25 mg, Oral, daily, Rishabh Reed MD, 25 mg at 04/28/25 0830 ipratropium-albuteroL (DUONEB) 0.5 mg-3 mg(2.5 mg base)/3 mL inhalation solution 3 mL, 3 mL, Inhalation, resp, every 4 hours PRN, Rishabh Reed MD amiodarone (CORDARONE) tablet 400 mg, 400 mg, Oral, BID, Rishabh Reed MD, 400 mg at 04/28/25 0829 [DISCONTINUED] fentaNYL (PF) (SUBLIMAZE) 50 mcg/mL injection 200 mcg, 200 mcg, IV, intra-proc PRN, Rishabh Reed MD, 25 mcg at 04/23/25 0920 [DISCONTINUED] midazolam (VERSED) injection 10 mg, 10 mg, IV, intra-proc PRN, Rishabh Reed MD, 1 mg at 04/23/25 0923 [DISCONTINUED] sodium chloride flush injection 10 mL, 10 mL, IV, intra-proc PRN, Rishabh Reed MD, 10 mL at 04/23/25 0850 [DISCONTINUED] atropine injection 0.5 mg, 0.5 mg, IV, intra-proc PRN, Aman Robles MD naloxone (NARCAN) 0.4 mg/mL injection 0.1-0.4 mg, 0.1-0.4 mg, IV, see admin instructions, Rishabh Reed MD acetaminophen (TYLENOL) tablet 650 mg, 650 mg, Oral, every 6 hours PRN, Rishabh Reed MD, 650 mg at 04/27/25 0313 polyethylene glycol (MIRALAX) packet 17 Gram, 17 Gram, Oral, daily, Rishabh Reed MD, 17 Gram at 04/23/25 1041 sennosides (SENOKOT) tablet 8.6 mg, 8.6 mg, Oral, daily, Rishabh Reed MD, 8.6 mg at 04/27/25 1249 [DISCONTINUED] cefTRIAXone (ROCEPHIN) 2,000 mg in sodium chloride 0.9% 50 mL IVPB (MBP), 2,000 mg, IV, daily, Rishabh Reed MD, Stopped at 04/28/25 0859 [DISCONTINUED] heparin in 0.45% NaCl 25,000 unit/250 mL infusion, 25 Units/kg/hr (Adjusted), IV, titrate, Rishabh Reed MD, Last Rate: 25.5 mL/hr at 04/28/25825, 25 Units/kg/hr at 04/28/25825 Primary discharge diagnosis: Atrial fibrillation with rapid ventricular response ([facility]/HCC) Other active medical issues also addressed during this admission: Active Hospital Problems Diagnosis Hyperparathyroidism Bilateral lower extremity edema Elevated troponin Atrial fibrillation with rapid ventricular response ([facility]/HCC) CHRIS (acute kidney injury) Hematuria HFrEF (heart failure with reduced ejection fraction) ([facility]) Resolved Hospital Problems No resolved problems to display. ASSESSMENT AND PLAN: Atrial fibrillation with RVR HFrEF Elevated troponin Denies chest pain/SOB [facility] 2021 reportedly without concern EKG: LBBB, reportedly baseline Trop 139 - 147 - 152 Cardiology consulted on admission Continue amio Can continue heparin FRED DCCV completed 04/23. EF of 25% 04/24: Patient back in A-[facility] with RVR, continue Amio and Toprol 04/25: Continue Amio and Toprol per cardiology recommendations Hematuria - improved. Blood clots now in tubing. Reported once anticoagulation was started Monitor Hgb Urology consulted --S/p cystoscopy 04/27/25: --There was some moderate oozing from the dome of the bladder which was fulgurated. --CBI clamped. Urology ordered to remove montejo. --still hematuria. H/h stable though. Discussed risks vs benefits or AC vs no AC. Patient wants to try half dose apixaban if ok with urology. Will discuss this with Dr. Reed today. --cont monitor h/h and urine for worsening hematuria. Transition to apixaban half dose after discussion with urology. Addendum: discussed with urology. Some hematuria is still expected on AC after his procedure yesterday. Would transition to half dose apixbaan today and monitor. CHRIS- improving JANENE at OSH (see media): bilateral renal cysts Cr 2.3 - seems to be at baseline Thought to be overdiureses + postrenal? Unable to assess urine lytes with CBI Nephrology consulted 04/21-appreciate recommendations Cystitis CT at OSH (see media): diffuse bladder wall thickening suspicious for cystitis S/p 9 days of Ceftriaxone therapy. Dc today. Constipation -resolved Seen on CT Bowel regimen with senna/miralax BLE edema Venous doppler pending Hyperparathyroidism Elevated calcium PTH 151 Vit D 36 Normocytic anemia Anemia of chronic disease Ferritin 570 Fe 28, % sat 14 Transfuse if < 8 DVT prophylaxis: DVT Pharmacologic Prophylaxis: dc heparin drip. Start apixaban 2.5 mg bid. Code status: Full Code Outpatient follow up: PCP Cardiology Urology Anticipated Disposition Location: [facility], [facility] pending Timeframe: 04/30/2025 Criteria: clinically stable Patient's understanding of illness: ok MDM complexity: [] Mild [x] Moderate [] High Carlos Zendejas MD 04/28/2025, 10:02 AM NA EXPERT * Carlos Zendejas MD - 04/27/2025 3:46 PM CST Images from the original note were not included. Your life is our life's work [facility] Hospitalist/Hospital Medicine Progress Note LOS: 7 days Room/Bed: 4257/ Patient name: Kristopher Leblanc Date of : 02/28/1958 HOSPITAL COURSE SUMMARY: Kristopher Leblanc is a 67 y.o. male with obesity, atrial fibrillation, HFrEF, and recent hospitalizations who was transferred to [facility] after hospitalization for 2 days at OSH for A fib RVR who developed hematuria with anticoagulation. Upon arrival he was on amiodarone drip, montejo catheter with bloody output. Cardiology and urology were consulted. 04/20: getting VASCULAR TECHNOLOGIST med list; continue amio, heparin trial ok with urology; CBI 04/21: Cr worse, nephrology consulted; cystoscopy this AM; TTE pending; possible FRED/DCCV tomorrow, continue amio 04/22 assumed patient care. Patient seen at bedside, reported feeling well. Heparin was resumed today after discussion with urology. Cardioversion could not be completed given he was not on anticoagulation and potassium was 3.3. Replacing potassium. 04/23: Cardioversion completed this morning. Patient was in sinus rhythm at time of encounter. CBI clamped this morning per urology. No indication for intervention today per urology. N.p.o. today and reassessment in the a.m. for possible need for cystoscopy. Continues to be on heparin 04/24: Patient is back in A-fib with RVR, EP on board, amiodarone loading and Toprol try CBI clamped per urology today, urine only slightly pink-tinged, will continue to monitor, he will need outpatient follow-up for complete workup of hematuria Continue anticoagulation Will start discharge planning once heart rate is better controlled 04/25: Continues to be in A-fib with RVR, heart rate between 90-110, cardiology following Continues to have slightly pink-tinged urine, CBI clamped, urology following Nephrology following for CHRIS, overall renal function improving 04/26 Assumed care today. Persistent hematuria. Continue heparin drip since H&H is stable. Urology to perform cystoscopy tomorrow. N.p.o. past midnight. 04/27 S/p cystocsopy. No tumors noted. Cont CBI. Plan to clamp tomorrow. Appreciate urology help. Pain around penis site and all over. Patient requesting IV opoids that he received in the OR, whichwas fentanyl. Appears comfortable on my exam. --would order oxycodone 5 mg q8h prn for 2 days. Use opoids sparingly. --tylenol as primary pain control med. Consultants: IP CONSULT TO CARDIOLOGY IP CONSULT TO UROLOGY IP CONSULT TO IV TEAM IP CONSULT TO NEPHROLOGY IP CONSULT TO CARDIAC REHAB IP CONSULT TO WOUND/SKIN CARE TEAM SUBJECTIVE: Pain all over body suzanne when he moves. Also pain around penis s/p cystoscopy. ROS: Limited ROS negative otherwise OBJECTIVE: Temp (24hrs), Av.7 ??F (36.5 ??C), Min:96.8 ??F (36 ??C), Max:99.5 ??F (37.5 ??C) BP 109/79 Pulse (!) 204 Temp 98.1 ??F (36.7 ??C) (Temporal) Resp 16 Ht 5' 11 (1.803 m) Wt (!) 143.1 kg (315 lb 7.7 oz) SpO2 93% BMI 44.00 kg/m?? Intake/Output Summary (Last 24 hours) at 04/27/2025 1547 Last data filed at 04/27/2025 1050 Gross per 24 hour Intake 3095 ml Output 2425 ml Net 670 ml Last documented weight: Weight: (!) 143.1 kg (315 lb 7.7 oz) (04/26/25227) EXAM: General: alert, in no distress Neurologic: Grossly normal HEENT: atraumatic, Normocephalic, without obvious abnormality Lungs: clear to auscultation bilaterally, normal respiratory effort Heart: tachycardic, irregular rhythm Abdomen: obese, soft, nontender Extremities: BLE edema Skin: negative Unchanged from yesterday LABORATORY: Recent Labs 04/24/25 1632 04/25/25 0440 04/25/25 1111 04/25/25 1709 04/26/25 0035 04/26/25 0456 04/26/25 1140 04/26/25 1758 04/27/25 0023 04/27/25 0528 04/27/25 1539 WBC -- 6.0 -- -- -- 6.5 -- -- -- 6.8 -- HGB 8.1* 8.7* 8.4* 8.4* 8.1* 8.4* 8.3* 8.7* 8.3* 8.2* 9.2* HCT 26.8* 29.2* 28.1* 27.8* 25.9* 28.0* 27.9* 28.6* 26.9* 27.5* 30.8* PLT -- 204 -- -- -- 194 -- -- -- 195 -- Recent Labs 04/25/25 0440 04/26/25 0456 04/27/25 0528 NA 139 138 137 K 3.3* 4.1 4.1 CL 103 102 101 CO2 19* 19* 20* CA 10.5* 10.8* 11.0* BUN 68* 56* 45* CREAT 1.86* 1.76* 1.48* GLUCOSE 86 79 75 No results for input(s): TOTALPROTEIN , ALBUMIN , BILITOTAL , ALKPHOS , AST , ALT in the last 72 hours. No results for input(s): INR , PT in the last 72 hours. Invalid input(s): PTT No results for input(s): BASETROP , 2HRTROP , DELTA , 6HRTROP in the last 72 hours. Diagnostic testing reviewed by me: Medications were reviewed by me. Current Facility-Administered Medications: [] diphenhydrAMINE (BENADRYL) injection 12.5 mg, 12.5 mg, IV, post-proc one time PRN, Shayan León MD oxyCODONE (ROXICODONE) tablet 5 mg, 5 mg, Oral, every 8 hours PRN, Carlos Zendejas MD [DISCONTINUED] fentaNYL (PF) (SUBLIMAZE) 50 mcg/mL injection 50 mcg, 50 mcg, IV, post-proc every 3 minutes PRN, Shayan León MD, 50 mcg at 04/27/25 1049 [DISCONTINUED] HYDROmorphone (PF) (DILAUDID) injection 0.5 mg, 0.5 mg, IV, post- proc every 5 minutes PRN, Shayan León MD [DISCONTINUED] ondansetron (ZOFRAN) 4 mg/2 mL injection 4 mg, 4 mg, IV, post- proc one time PRN, Shayan León MD [DISCONTINUED] diphenhydrAMINE (BENADRYL) injection 12.5 mg, 12.5 mg, IV, post- proc one time PRN, Shayan León MD [DISCONTINUED] glycine urologic solution 1.5 % irrigation, , , intra-proc PRN, Rishabh Reed MD, 3,000 mL at 04/27/25 0920 [DISCONTINUED] lidocaine 2% jelly, , , intra-proc PRN, Rishabh Reed MD, 10 mL at 04/27/25 0921 morphine 4 mg/mL injection 4 mg, 4 mg, IV, ONE time only, Rishabh Reed MD nitroglycerin (NITRO-BID) 2 % topical ointment 1 Inch, 1 Inch, Topical, ONE time only, Rishabh Reed MD [COMPLETED] heparin injection 3,100 Units, 30 Units/kg (Adjusted), IV, ONE time only, Carlos Zendejas MD, 3,100 Units at 04/26/25 1913 ammonium lactate (LAC-HYDRIN) 12 % lotion, , Topical, BID, Rishabh Reed MD, Given at 04/26/252136 zinc OXIDE-cod liver oil (DESITIN) 40 % topical paste, , Topical, BID, Rishabh Reed MD, Given at 04/26/252137 metoprolol succinate (TOPROL XL) SR 24 hour tablet 25 mg, 25 mg, Oral, daily, Rishabh Reed MD, 25 mg at 04/27/251248 ipratropium-albuteroL (DUONEB) 0.5 mg-3 mg(2.5 mg base)/3 mL inhalation solution 3 mL, 3 mL, Inhalation, resp, every 4 hours PRN, Rishabh Reed MD amiodarone (CORDARONE) tablet 400 mg, 400 mg, Oral, BID, Rishabh Reed MD, 400 mg at 04/27/25 1249 [DISCONTINUED] fentaNYL (PF) (SUBLIMAZE) 50 mcg/mL injection 200 mcg, 200 mcg, IV, intra-proc PRN, Rishabh Reed MD, 25 mcg at 04/23/25 0920 [DISCONTINUED] midazolam (VERSED) injection 10 mg, 10 mg, IV, intra-proc PRN, Rishabh Reed MD, 1 mg at 04/23/25 0923 [DISCONTINUED] sodium chloride flush injection 10 mL, 10 mL, IV, intra-proc PRN, Rishabh Reed MD, 10 mL at 04/23/25 0850 [DISCONTINUED] atropine injection 0.5 mg, 0.5 mg, IV, intra-proc PRN, Aman Robles MD naloxone (NARCAN) 0.4 mg/mL injection 0.1-0.4 mg, 0.1-0.4 mg, IV, see admin instructions, Rishabh Reed MD acetaminophen (TYLENOL) tablet 650 mg, 650 mg, Oral, every 6 hours PRN, Rishabh Reed MD, 650 mg at 04/27/25 0313 cefTRIAXone (ROCEPHIN) 2,000 mg in sodium chloride 0.9% 50 mL IVPB (MBP), 2,000 mg, IV, daily, Rishabh Reed MD, Stopped at 04/27/25 1323 heparin in 0.45% NaCl 25,000 unit/250 mL infusion, 25 Units/kg/hr (Adjusted), IV, titrate, Rishabh Reed MD, Last Rate: 25.5 mL/hr at 04/27/25944, 25 Units/kg/hr at 04/27/25944 polyethylene glycol (MIRALAX) packet 17 Gram, 17 Gram, Oral, daily, Rishabh Reed MD, 17 Gram at 04/23/25 1041 sennosides (SENOKOT) tablet 8.6 mg, 8.6 mg, Oral, daily, Rishabh Reed MD, 8.6 mg at 04/27/25 1249 Facility-Administered Medications Ordered in Other Encounters: [DISCONTINUED] etomidate (AMIDATE) injection, , IV, intra-proc PRN, Edi Morales CRNA, 9 mg at 04/27/25856 [DISCONTINUED] fentaNYL (PF) (SUBLIMAZE) 50 mcg/mL injection, , IV, intra-proc PRN, Edi Morales CRNA, 50 mcg at 04/27/25912 [DISCONTINUED] phenylephrine injection, , IV, intra-proc PRN, Edi Morales CRNA, 100 mcg at 04/27/25923 [DISCONTINUED] rocuronium injection, , IV, intra-proc PRN, Edi Morales CRNA, 50 mg at [DISCONTINUED] sodium chloride 0.9 % infusion, , IV, intra-proc continuous PRN, Edi Morales CRNA, Stopped-Anesthesia at 04/27/25938 [DISCONTINUED] lidocaine 2 % (XYLOCAINE) injection, , IV, intra-proc PRN, Edi Morales CRNA, 100 mg at 04/27/25856 [DISCONTINUED] dexAMETHasone (DECADRON) injection, , IV, intra-proc PRN, Edi Morales CRNA, 4 mg at 04/27/25904 [DISCONTINUED] sugammadex (BRIDION) 100 mg/mL injection, , IV, intra-proc PRN, Edi Morales CRNA, 200 mg at 04/27/25923 Primary discharge diagnosis: Atrial fibrillation with rapid ventricular response (CMS/HCC) Other active medical issues also addressed during this admission: Active Hospital Problems Diagnosis Hyperparathyroidism Bilateral lower extremity edema Elevated troponin Atrial fibrillation with rapid ventricular response ([facility]/HCC) CHRIS (acute kidney injury) Hematuria HFrEF (heart failure with reduced ejection fraction) ([facility]) Resolved Hospital Problems No resolved problems to display. ASSESSMENT AND PLAN: Atrial fibrillation with RVR HFrEF Elevated troponin Denies chest pain/SOB [facility] 2021 reportedly without concern EKG: LBBB, reportedly baseline Trop 139 - 147 - 152 Cardiology consulted on admission Continue amio Can continue heparin FRED DCCV completed 04/23. EF of 25% 04/24: Patient back in A-fib with RVR, continue Amio and Toprol 04/25: Continue Amio and Toprol per cardiology recommendations Hematuria Reported once anticoagulation was started Monitor Hgb Urology consulted CBI - -clamped 04/23 - > hematuria worse. Persistent hematuria. Continue heparin drip since H&H is stable. S/p cystocsopy. No tumors noted. Cont CBI. Plan to clamp tomorrow. Appreciate urology help. Pain around penis site and all over. Patient requesting IV opoids that he received in the OR, whichwas fentanyl. Appears comfortable on my exam. --would order oxycodone 5 mg q8h prn for 2 days. Use opoids sparingly. --tylenol as primary pain control med. CHRIS- resolving JANENE at OSH (see media): bilateral renal cysts Cr 2.3 - seems to be at baseline Thought to be overdiureses + postrenal? Unable to assess urine lytes with CBI Nephrology consulted 04/21-appreciate recommendations Cystitis CT at OSH (see media): diffuse bladder wall thickening suspicious for cystitis Ceftriaxone (04/20-) Constipation -resolved Seen on CT Bowel regimen with senna/miralax BLE edema Venous doppler pending Hyperparathyroidism Elevated calcium PTH 151 Vit D 36 Normocytic anemia Anemia of chronic disease Ferritin 570 Fe 28, % sat 14 Transfuse if < 8 DVT prophylaxis: DVT Pharmacologic Prophylaxis: heparin in 0.45% NaCl 25,000 unit/250 mL infusion [[id number]] - on hold Code status: Full Code Outpatient follow up: PCP Cardiology Urology Anticipated Disposition Location: [facility] pending Timeframe: 04/29/2025 Criteria: clinically stable Patient's understanding of illness: ok MDM complexity: [] Mild [x] Moderate [] High Carlos Zendejas MD 04/27/2025, 3:47 PM NA EXPERT * Carlos Zendejas MD - 04/26/2025 9:17 PM CST Images from the original note were not included. Your life is our life's work [facility] Hospitalist/Hospital Medicine Progress Note LOS: 6 days Room/Bed: 425/ Patient name: Kristopher Leblanc Date of : 02/28/1958 HOSPITAL COURSE SUMMARY: Kristopher Leblanc is a 67 y.o. male with obesity, atrial fibrillation, HFrEF, and recent hospitalizations who was transferred to [facility] after hospitalization for 2 days at OSH for A fib RVR who developed hematuria with anticoagulation. Upon arrival he was on amiodarone drip, montejo catheter with bloody output. Cardiology and urology were consulted. 04/20: getting VASCULAR TECHNOLOGIST med list; continue amio, heparin trial ok with urology; CBI 04/21: Cr worse, nephrology consulted; cystoscopy this AM; TTE pending; possible FRED/DCCV tomorrow, continue amio 04/22 assumed patient care. Patient seen at bedside, reported feeling well. Heparin was resumed today after discussion with urology. Cardioversion could not be completed given he was not on anticoagulation and potassium was 3.3. Replacing potassium. 04/23: Cardioversion completed this morning. Patient was in sinus rhythm at time of encounter. CBI clamped this morning per urology. No indication for intervention today per urology. N.p.o. today and reassessment in the a.m. for possible need for cystoscopy. Continues to be on heparin 04/24: Patient is back in A-fib with RVR, EP on board, amiodarone loading and Toprol try CBI clamped per urology today, urine only slightly pink-tinged, will continue to monitor, he will need outpatient follow-up for complete workup of hematuria Continue anticoagulation Will start discharge planning once heart rate is better controlled 04/25: Continues to be in A-fib with RVR, heart rate between 90-110, cardiology following Continues to have slightly pink-tinged urine, CBI clamped, urology following Nephrology following for CHRIS, overall renal function improving 04/26 Assumed care today. Persistent hematuria. Continue heparin drip since H&H is stable. Urology to perform cystoscopy tomorrow. N.p.o. past midnight. Consultants: IP CONSULT TO CARDIOLOGY IP CONSULT TO UROLOGY IP CONSULT TO IV TEAM IP CONSULT TO NEPHROLOGY IP CONSULT TO CARDIAC REHAB IP CONSULT TO WOUND/SKIN CARE TEAM SUBJECTIVE: Patient offers no complaints. Remaining as mentioned above. No acute events overnight ROS: Limited ROS negative otherwise OBJECTIVE: Temp (24hrs), Av.7 ??F (36.5 ??C), Min:97.1 ??F (36.2 ??C), Max:98.1 ??F (36.7 ??C) BP 111/70 Pulse (!) 205 Temp 97.1 ??F (36.2 ??C) (Temporal) Resp 16 Ht 5' 11 (1.803 m) Wt (!) 143.1 kg (315 lb 7.7 oz) SpO2 97% BMI 44.00 kg/m?? Intake/Output Summary (Last 24 hours) at 04/26/2025 2117 Last data filed at 04/26/2025 1703 Gross per 24 hour Intake 1140 ml Output 1275 ml Net -135 ml Last documented weight: Weight: (!) 143.1 kg (315 lb 7.7 oz) (04/26/25 0228) EXAM: General: alert, in no distress Neurologic: Grossly normal HEENT: atraumatic, Normocephalic, without obvious abnormality Lungs: clear to auscultation bilaterally, normal respiratory effort Heart: tachycardic, irregular rhythm Abdomen: obese, soft, nontender Extremities: BLE edema Skin: negative Unchanged from yesterday LABORATORY: Recent Labs 04/24/25 0039 04/24/25 0510 04/24/25 1632 04/25/25 0440 04/25/25 1111 04/25/25 1709 04/26/25 0035 04/26/25 0456 04/26/25 1140 04/26/25 1758 WBC -- -- -- 6.0 -- -- -- 6.5 -- -- HGB 8.4* 8.5* 8.1* 8.7* 8.4* 8.4* 8.1* 8.4* 8.3* 8.7* HCT 27.7* 28.2* 26.8* 29.2* 28.1* 27.8* 25.9* 28.0* 27.9* 28.6* PLT -- -- -- 204 -- -- -- 194 -- -- Recent Labs 04/24/25 0510 04/25/25 0440 04/26/25 0456 NA 139 139 138 K 3.2* 3.3* 4.1 CL 103 103 102 CO2 21* 19* 19* CA 10.3* 10.5* 10.8* BUN 82* 68* 56* CREAT 2.06* 1.86* 1.76* GLUCOSE 90 86 79 No results for input(s): TOTALPROTEIN , ALBUMIN , BILITOTAL , ALKPHOS , AST , ALT in the last 72 hours. No results for input(s): INR , PT in the last 72 hours. Invalid input(s): PTT No results for input(s): BASETROP , 2HRTROP , DELTA , 6HRTROP in the last 72 hours. Diagnostic testing reviewed by me: Medications were reviewed by me. Current Facility-Administered Medications: morphine 4 mg/mL injection 4 mg, 4 mg, IV, ONE time only, Kira Felix MD nitroglycerin (NITRO-BID) 2 % topical ointment 1 Inch, 1 Inch, Topical, ONE time only, Kira Felix MD [COMPLETED] heparin injection 1,500 Units, 15 Units/kg (Adjusted), IV, ONE time only, Komal Crandall MD, 1,500 Units at 04/26/25 0528 [COMPLETED] heparin injection 3,100 Units, 30 Units/kg (Adjusted), IV, ONE time only, Carlos Zendejas MD, 3,100 Units at 04/26/25 191 ammonium lactate (LAC-HYDRIN) 12 % lotion, , Topical, BID, Komal Crandall MD, Given at 04/26/25 0904 zinc OXIDE-cod liver oil (DESITIN) 40 % topical paste, , Topical, BID, Komal Crandall MD, Given at 04/26/25 0905 metoprolol succinate (TOPROL XL) SR 24 hour tablet 25 mg, 25 mg, Oral, daily, Tara Jiang MD,25 mg at 04/26/25 0900 fentaNYL (PF) (SUBLIMAZE) 50 mcg/mL injection 200 mcg, 200 mcg, IV, intra-proc PRN, Aman Robles MD, 25 mcg at 04/23/25 0920 midazolam (VERSED) injection 10 mg, 10 mg, IV, intra-proc PRN, Aman Robles MD, 1 mg at 923 sodium chloride flush injection 10 mL, 10 mL, IV, intra-proc PRN, Aman Robles MD, 10 mL at 04/23/25 0850 atropine injection 0.5 mg, 0.5 mg, IV, intra-proc PRN, Aman Robles MD ipratropium-albuteroL (DUONEB) 0.5 mg-3 mg(2.5 mg base)/3 mL inhalation solution 3 mL, 3 mL, Inhalation, resp, every 4 hours PRN, Komal Crandall MD amiodarone (CORDARONE) tablet 400 mg, 400 mg, Oral, BID, Tara Jiang MD, 400 mg at 04/26/25 0900 naloxone (NARCAN) 0.4 mg/mL injection 0.1-0.4 mg, 0.1-0.4 mg, IV, see admin instructions, Gregorio Rogers MD acetaminophen (TYLENOL) tablet 650 mg, 650 mg, Oral, every 6 hours PRN, Gregorio Rogers MD, 650 mg at 04/25/25 1626 cefTRIAXone (ROCEPHIN) 2,000 mg in sodium chloride 0.9% 50 mL IVPB (MBP), 2,000 mg, IV, daily, Gregorio Rogers MD, Stopped at 04/26/25 0930 heparin in 0.45% NaCl 25,000 unit/250 mL infusion, 25 Units/kg/hr (Adjusted), IV, titrate, Carlos Zendejas MD, Last Rate: 25.5 mL/hr at 04/26/25 1915, 25 Units/kg/hr at 04/26/25 1915 polyethylene glycol (MIRALAX) packet 17 Gram, 17 Gram, Oral, daily, Maricruz Galvan MD, 17 Gram at 04/23/25 1041 sennosides (SENOKOT) tablet 8.6 mg, 8.6 mg, Oral, daily, Maricruz Galvan MD, 8.6 mg at 04/23/25 1040 Primary discharge diagnosis: Atrial fibrillation with rapid ventricular response (CMS/HCC) Other active medical issues also addressed during this admission: Active Hospital Problems Diagnosis Hyperparathyroidism Bilateral lower extremity edema Elevated troponin Atrial fibrillation with rapid ventricular response (CMS/HCC) CHRIS (acute kidney injury) Hematuria HFrEF (heart failure with reduced ejection fraction) ([facility]) Resolved Hospital Problems No resolved problems to display. ASSESSMENT AND PLAN: Atrial fibrillation with RVR HFrEF Elevated troponin Denies chest pain/SOB [facility] 2021 reportedly without concern EKG: LBBB, reportedly baseline Trop 139 - 147 - 152 Cardiology consulted on admission Continue amio Can continue heparin FRED DCCV completed 04/23. EF of 25% 04/24: Patient back in A-fib with RVR, continue Amio and Toprol 04/25: Continue Amio and Toprol per cardiology recommendations Hematuria Reported once anticoagulation was started Monitor Hgb Urology consulted CBI - -clamped 04/23 - > hematuria worse. Persistent hematuria. Continue heparin drip since H&H is stable. Urology to perform cystoscopy tomorrow. N.p.o. past midnight. CHRIS- resolving JANENE at OSH (see media): bilateral renal cysts Cr 2.3 - seems to be at baseline Thought to be overdiureses + postrenal? Unable to assess urine lytes with CBI Nephrology consulted 04/21-appreciate recommendations Cystitis CT at OSH (see media): diffuse bladder wall thickening suspicious for cystitis Ceftriaxone (04/20-) Constipation -resolved Seen on CT Bowel regimen with senna/miralax BLE edema Venous doppler pending Hyperparathyroidism Elevated calcium PTH 151 Vit D 36 Normocytic anemia Anemia of chronic disease Ferritin 570 Fe 28, % sat 14 Transfuse if < 8 DVT prophylaxis: DVT Pharmacologic Prophylaxis: heparin in 0.45% NaCl 25,000 unit/250 mL infusion [[id number]] - on hold Code status: Full Code Outpatient follow up: PCP Cardiology Urology Anticipated Disposition [facility]: [facility] pending Timeframe: 04/29/2025 Criteria: clinically stable Patient's understanding of illness: ok MDM complexity: [] Mild [x] Moderate [] High Carlos Zendejas MD 04/26/2025, 9:17 PM NA EXPERT * Rishabh Reed MD - 04/26/2025 3:09 PM CST Urology Progress Note - 04/26/2025 SUBJECTIVE: hematuria returned o/n OBJECTIVE: BP 97/68 Pulse (!) 237 Temp 97.4 ??F (36.3 ??C) (Temporal) Resp 18 Ht 5' 11 (1.803 m) Wt(!) 143.1 kg (315 lb 7.7 oz) SpO2 98% BMI 44.00 kg/m?? Urine clear on moderate cbi Lab Results Component Value Date WBC 6.5 04/26/2025 HGB 8.3 (L) 04/26/2025 HCT 27.9 (L) 04/26/2025 PLT 194 04/26/2025 Lab Results Component Value Date NA 138 04/26/2025 K 4.1 04/26/2025 CL 102 04/26/2025 CO2 19 (L) 04/26/2025 CA 10.8 (H) 04/26/2025 BUN 56 (H) 04/26/2025 CREAT 1.76 (H) 04/26/2025 GLUCOSE 79 04/26/2025 TOTALPROTEIN 7.0 04/20/2025 ALBUMIN 3.6 04/20/2025 BILITOTAL 0.5 04/20/2025 ALKPHOS 51 04/20/2025 AST 10 04/20/2025 ALT <5 04/20/2025 ANIONGAP 17 04/26/2025 ASSESSMENT: Principal Problem: Atrial fibrillation with rapid ventricular response (CMS/HCC) Active Problems: CHRIS (acute kidney injury) Hematuria HFrEF (heart failure with reduced ejection fraction) (CMS/HCC) Hyperparathyroidism Bilateral lower extremity edema Elevated troponin PLAN: Will plan n.p.o. after midnight tonight for possible cystoscopy tomorrow Rishabh Reed MD NA EXPERT * Tara Jiang MD - 04/26/2025 8:04 AM CST S: Pt has no complain of CP, SOB, Dizziness, No fever or Chill. No significant palpitation. Tolerating medication. Review of System: Consitutional: no fever or chills Neurologic: No significant headache, recent stroke, or seizure. Eyes: No double visual ENT: No earache, nasal bleeding or signigicant sore throat Cardiac: as HPI Pulmonary: no cough off blood, or significant change in sputum production Gastrointestinal: No significant and prolonged diarrhea or constipation Genitourinary: No hematuria, dysuria. Skin: no significant rash Psychiatric: No clear depression Musculoskeletal: no significant change in myalgias or arthralgias O: HR 100, BP 112/83, no fever, 94% Pt is alert and oriented x 3, no apparent distress, VSS, afibril Heart: irregular, no sig. Murmur Lung: CTA, with minimal crakles ABD: Non-tender, Soft and +BS Leg: Trace edema Lab: Lab Results Component Value Date WBC 6.5 04/26/2025 HGB 8.4 (L) 04/26/2025 HCT 28.0 (L) 04/26/2025 PLT 194 04/26/2025 MCV 87.8 04/26/2025 Lab Results Component Value Date NA 138 04/26/2025 K 4.1 04/26/2025 CL 102 04/26/2025 CO2 19 (L) 04/26/2025 CA 10.8 (H) 04/26/2025 BUN 56 (H) 04/26/2025 CREAT 1.76 (H) 04/26/2025 GLUCOSE 79 04/26/2025 ANIONGAP 17 04/26/2025 No results found for: CPK , CKMB , TROPONIN , TROPONIINT , TROPINTR Current Facility-Administered Medications Medication Dose Route Frequency Provider Last Rate Last Admin morphine 4 mg/mL injection 4 mg 4 mg IV ONE time only Kira Felix MD nitroglycerin (NITRO-BID) 2 % topical ointment 1 Inch 1 Inch Topical ONE time only Kira Felix MD [COMPLETED] heparin injection 1,500 Units 15 Units/kg (Adjusted) IV ONE time only Komal Crandall MD 1,500 Units at 04/26/25 0528 ammonium lactate (LAC-HYDRIN) 12 % lotion Topical BID Komal Crandall MD Given at 04/25/25 213 zinc OXIDE-cod liver oil (DESITIN) 40 % topical paste Topical BID Komal Crandall MD Given at 134 [COMPLETED] potassium CHLORIDE (KLOR-CON) SR tablet 40 mEq 40 mEq Oral ONE time only Komal Crandall MD 40 mEq at 04/25/25 162 metoprolol succinate (TOPROL XL) SR 24 hour tablet 25 mg 25 mg Oral daily Tara Jiang MD 25 mg at 04/25/25 0848 [DISCONTINUED] lactated ringers infusion IV continuous Uvaldo Huber MD Stopped at 04/25/25 110 fentaNYL (PF) (SUBLIMAZE) 50 mcg/mL injection 200 mcg 200 mcg IV intra-proc PRN Aman Robles MD 25 mcg at 04/23/25 0920 midazolam (VERSED) injection 10 mg 10 mg IV intra-proc PRN Aman Robles MD 1 mg at 04/23/25 0923 sodium chloride flush injection 10 mL 10 mL IV intra-proc PRN Aman Robles MD 10 mL at 04/23/25 0850 atropine injection 0.5 mg 0.5 mg IV intra-proc PRN Aman Robles MD ipratropium-albuteroL (DUONEB) 0.5 mg-3 mg(2.5 mg base)/3 mL inhalation solution 3 mL 3 mL Inhalation resp, every 4 hours PRN Komal Crandall MD amiodarone (CORDARONE) tablet 400 mg 400 mg Oral BID Tara Jiang MD 400 mg at 04/25/252133 naloxone (NARCAN) 0.4 mg/mL injection 0.1-0.4 mg 0.1-0.4 mg IV see admin instructions Gregorio Rogers MD acetaminophen (TYLENOL) tablet 650 mg 650 mg Oral every 6 hours PRN Gregorio Rogers MD 650 mg at 04/25/25 1626 cefTRIAXone (ROCEPHIN) 2,000 mg in sodium chloride 0.9% 50 mL IVPB (MBP) 2,000 mg IV daily Gregorio Rogers MD Stopped at 04/25/25 0933 heparin in 0.45% NaCl 25,000 unit/250 mL infusion 23 Units/kg/hr (Adjusted) IV titrate Komal Crandall MD 23.5 mL/hr at 04/26/25 0531 23 Units/kg/hr at 04/26/25 0531 polyethylene glycol (MIRALAX) packet 17 Gram 17 Gram Oral daily Maricruz Galvan MD 17 Gram at 04/23/25 1041 sennosides (SENOKOT) tablet 8.6 mg 8.6 mg Oral daily Maricruz Galvan MD 8.6 mg at 04/23/25 1040 A/P 67 M, hx of HTN, hyperlipidemia, DM. Hx of WI, Hx of afib and V fib. Cardiogenic shock. LVEF 20s% and angio 2021 rodas no intervention needed. Here for afib/cm and cardiogenic shock. May have hematuria.Poor historian EKG at admission, afib LBBB and PVC. Troponin 139, 147 with Cr 2.66, Hg 8.9 CM, LVEF 25-30% soft BP and high Cr limit HF meds. Trial of toprol 25. His CR is better now at 1.8 Afib, s/p FRED/DCCV Continue heparin. FRED/DCCV 04/23/2025. Back into afib 04/24/2025. Rate control for now. Heparin change to eliquis when dc Amio po loading 400 bid for another 1 week, then daily Doing better Will likely benefit from CRTD with AV node ablation. Plan it on outpatient. My RN will call and schedule if able to be dc over the weekend. If he need to stay over the weekend, will try to do next week. His rhythm stable without significant change and no significant symptoms. Situation discussed and all questions answered. F/u discussed and ordered. EP will sign off for now. Please call if questions. NA EXPERT * Komal Crandall MD - 04/25/2025 3:11 PM CST Images from the original note were not included. Your life is our life's work [facility] Hospitalist/Hospital Medicine Progress Note LOS: 5 days Room/Bed: 425701 Patient name: Kristopher Leblanc Date of : 02/28/1958 HOSPITAL COURSE SUMMARY: Kristopher Leblanc is a 67 y.o. male with obesity, atrial fibrillation, HFrEF, and recent hospitalizations who was transferred to [facility] after hospitalization for 2 days at OSH for A fib RVR who developed hematuria with anticoagulation. Upon arrival he was on amiodarone drip, montejo catheter with bloody output. Cardiology and urology were consulted. 04/20: getting VASCULAR TECHNOLOGIST med list; continue amio, heparin trial ok with urology; CBI 04/21: Cr worse, nephrology consulted; cystoscopy this AM; TTE pending; possible FRED/DCCV tomorrow, continue amio 04/22 assumed patient care. Patient seen at bedside, reported feeling well. Heparin was resumed today after discussion with urology. Cardioversion could not be completed given he was not on anticoagulation and potassium was 3.3. Replacing potassium. 04/23: Cardioversion completed this morning. Patient was in sinus rhythm at time of encounter. CBI clamped this morning per urology. No indication for intervention today per urology. N.p.o. today and reassessment in the a.m. for possible need for cystoscopy. Continues to be on heparin 04/24: Patient is back in A-fib with RVR, EP on board, amiodarone loading and Toprol try CBI clamped per urology today, urine only slightly pink-tinged, will continue to monitor, he will need outpatient follow-up for complete workup of hematuria Continue anticoagulation Will start discharge planning once heart rate is better controlled 04/25: Continues to be in A-fib with RVR, heart rate between 90-110, cardiology following Continues to have slightly pink-tinged urine, CBI clamped, urology following Nephrology following for CHRIS, overall renal function improving Consultants: IP CONSULT TO CARDIOLOGY IP CONSULT TO UROLOGY IP CONSULT TO IV TEAM IP CONSULT TO NEPHROLOGY IP CONSULT TO CARDIAC REHAB IP CONSULT TO WOUND/SKIN CARE TEAM SUBJECTIVE: Patient offers no complaints. Remaining as mentioned above. No acute events overnight ROS: History obtained from the patient Psychological: no Depression, no Suicide ideation/thoughts Constitutional: negative for fever, chills, negative for confusion, fatigue Pulmonary: negative for dyspnea, no cough Cardiovascular: negative for chest pain, no palpitations, no orthopnea GI: negative for nausea, vomiting, diarrhea and constipation, no abdominal pain Renal: no dysuria, no hematuria Musculoskeletal: no back pain, no joint pain, no calf swelling Neuro: negative for headache, no vision changes, no dizziness Skin: no skin rash, no redness OBJECTIVE: Temp (24hrs), Av.7 ??F (36.5 ??C), Min:96.8 ??F (36 ??C), Max:98.2 ??F (36.8 ??C) BP (!) 131/94 Pulse (!) 101 Temp 97.4 ??F (36.3 ??C) (Temporal) Resp 19 Ht 5' 11 (1.803 m) Wt (!) 142.1 kg (313 lb 4.4 oz) SpO2 96% BMI 43.69 kg/m?? Intake/Output Summary (Last 24 hours) at 04/25/2025 1511 Last data filed at 04/25/2025 1100 Gross per 24 hour Intake 425 ml Output 71562 ml Net -9950 ml Last documented weight: Weight: (!) 142.1 kg (313 lb 4.4 oz) (04/20/25 0319) EXAM: General: alert, in no distress Neurologic: Grossly normal HEENT: atraumatic, Normocephalic, without obvious abnormality Lungs: clear to auscultation bilaterally, normal respiratory effort Heart: tachycardic, irregular rhythm Abdomen: obese, soft, nontender Extremities: BLE edema Skin: negative LABORATORY: Recent Labs 04/22/25 2124 04/22/25 2322 04/23/25 0312 04/23/25 0611 04/23/25 1324 04/23/25 2040 04/24/25 0039 04/24/25 0510 04/24/25 1632 04/25/25 0440 04/25/25 1111 WBC -- -- 7.0 -- -- -- -- -- -- 6.0 -- HGB 8.1* 8.3* 8.4* 8.3* 8.9* 8.8* 8.4* 8.5* 8.1* 8.7* 8.4* HCT 27.3* 27.7* 28.1* 27.3* 29.6* 29.4* 27.7* 28.2* 26.8* 29.2* 28.1* PLT -- -- 210 -- -- -- -- -- -- 204 -- Recent Labs 04/23/25 0312 04/24/25 0510 04/25/25 0440 NA 134* 139 139 K 3.6 3.2* 3.3* CL 97* 103 103 CO2 19* 21* 19* CA 9.8 10.3* 10.5* BUN 89* 82* 68* CREAT 2.33* 2.06* 1.86* GLUCOSE 187* 90 86 No results for input(s): TOTALPROTEIN , ALBUMIN , BILITOTAL , ALKPHOS , AST , ALT in the last 72 hours. No results for input(s): INR , PT in the last 72 hours. Invalid input(s): PTT No results for input(s): BASETROP , 2HRTROP , DELTA , 6HRTROP in the last 72 hours. Diagnostic testing reviewed by me: Medications were reviewed by me. Current Facility-Administered Medications: [COMPLETED] heparin injection 1,500 Units, 15 Units/kg (Adjusted), IV, ONE time only, Komal Crandall MD, 1,500 Units at 04/25/25 0522 ammonium lactate (LAC-HYDRIN) 12 % lotion, , Topical, BID, Komal Crandall MD, Given at 04/25/25 1454 zinc OXIDE-cod liver oil (DESITIN) 40 % topical paste, , Topical, BID, Komal Crandall MD, Given at 04/25/25 1454 metoprolol succinate (TOPROL XL) SR 24 hour tablet 25 mg, 25 mg, Oral, daily, Tara Jiang MD,25 mg at 04/25/25 0848 [DISCONTINUED] lactated ringers infusion, , IV, continuous, Uvaldo Huber MD, Stopped at 04/25/25 1102 fentaNYL (PF) (SUBLIMAZE) 50 mcg/mL injection 200 mcg, 200 mcg, IV, intra-proc PRN, Aman Robles MD, 25 mcg at 04/23/25 0920 midazolam (VERSED) injection 10 mg, 10 mg, IV, intra-proc PRN, Aman Robles MD, 1 mg at 923 sodium chloride flush injection 10 mL, 10 mL, IV, intra-proc PRN, Aman Robles MD, 10 mL at 04/23/25 0850 atropine injection 0.5 mg, 0.5 mg, IV, intra-proc PRN, Aman Robles MD ipratropium-albuteroL (DUONEB) 0.5 mg-3 mg(2.5 mg base)/3 mL inhalation solution 3 mL, 3 mL, Inhalation, resp, every 4 hours PRN, Komal Crandall MD amiodarone (CORDARONE) tablet 400 mg, 400 mg, Oral, BID, ApolinarTara MD, 400 mg at 04/25/25 0848 naloxone (NARCAN) 0.4 mg/mL injection 0.1-0.4 mg, 0.1-0.4 mg, IV, see admin instructions, Gregorio Rogers MD acetaminophen (TYLENOL) tablet 650 mg, 650 mg, Oral, every 6 hours PRN, Gregorio Rogers MD, 650 mg at 04/25/25 0848 cefTRIAXone (ROCEPHIN) 2,000 mg in sodium chloride 0.9% 50 mL IVPB (MBP), 2,000 mg, IV, daily, Gregorio Rogers MD, Stopped at 04/25/25 0933 heparin in 0.45% NaCl 25,000 unit/250 mL infusion, 22 Units/kg/hr (Adjusted), IV, titrate, Komal Crandall MD, Last Rate: 22.4 mL/hr at 04/25/25 0518, 22 Units/kg/hr at 04/25/25 0518 polyethylene glycol (MIRALAX) packet 17 Gram, 17 Gram, Oral, daily, Maricruz Galvan MD, 17 Gram at 04/23/25 1041 sennosides (SENOKOT) tablet 8.6 mg, 8.6 mg, Oral, daily, Maricruz Galvan MD, 8.6 mg at 04/23/25 1040 Primary discharge diagnosis: Atrial fibrillation with rapid ventricular response (CMS/HCC) Other active medical issues also addressed during this admission: Active Hospital Problems Diagnosis Hyperparathyroidism Bilateral lower extremity edema Elevated troponin Atrial fibrillation with rapid ventricular response (CMS/HCC) CHRIS (acute kidney injury) Hematuria HFrEF (heart failure with reduced ejection fraction) (CMS/[facility]) Resolved Hospital Problems No resolved problems to display. ASSESSMENT AND PLAN: Atrial fibrillation with RVR HFrEF Elevated troponin Denies chest pain/SOB [facility] 2021 reportedly without concern EKG: LBBB, reportedly baseline Trop 139 - 147 - 152 Cardiology consulted on admission Continue amio Can continue heparin FRED DCCV completed 04/23. EF of 25% 04/24: Patient back in A-fib with RVR, continue Amio and Toprol 04/25: Continue Amio and Toprol per cardiology recommendations Hematuria Reported once anticoagulation was started Bleeding resumed prior to resuming heparin Monitor Hgb Urology consulted CBI - -clamped 04/23 Urology holding off on any intervention for now, outpatient workup for hematuria CHRIS- resolving JANENE at OSH (see media): bilateral renal cysts Cr 2.3 - seems to be at baseline Thought to be overdiureses in the transfer paperwork Unable to assess urine lytes with CBI Nephrology consulted 04/21-appreciate recommendations Cystitis CT at OSH (see media): diffuse bladder wall thickening suspicious for cystitis Ceftriaxone (04/20-) Constipation -resolved Seen on CT Bowel regimen with senna/miralax BLE edema Venous doppler pending Hyperparathyroidism Elevated calcium PTH 151 Vit D 36 Normocytic anemia Anemia of chronic disease Ferritin 570 Fe 28, % sat 14 Transfuse if < 8 DVT prophylaxis: DVT Pharmacologic Prophylaxis: heparin in 0.45% NaCl 25,000 unit/250 mL infusion [[id number]] - on hold Code status: Full Code Outpatient follow up: PCP Cardiology Urology Anticipated Disposition Location: [facility] pending Timeframe: 04/26/2025 Criteria: clinically stable Patient's understanding of illness: ok MDM complexity: [] Mild [x] Moderate [] High Komal Crandall MD 04/25/2025, 3:11 PM NA EXPERT * Agnes Oglesby, RD - 04/25/2025 3:09 PM CST Reason For Nutrition Assessment: LOS, and Other Nutrition Diagnosis Malnutrition Nutrition Diagnosis: (P) Limited findings, Unable to diagnose with malnutrition at this time (04/25/251499) In the context of: Acute Illness/Injury and Chronic Illness Problem: (P) No nutrition diagnosis at this time (04/25/251499) Malnutrition Impact: Decreased activity tolerance and reduced mobility, Increased readmission risk,and Increased hospitalization length Interventions/Recommendations: Provide supplement tid with meals Encourage nutrient dense selections and intake Goals: 75-100% of meals, +BM, Gradual weight loss toward IBW range, Skin integrity/healing, and Tolerate nutrition source Monitoring/Evaluation: intake, labs, wt Nutrition Discharge Plan: TBD See below for full assessment Assessment 67 y.o.male admitted with Atrial fibrillation with rapid ventricular response (CMS/HCC). Subjective: 67 y.o. male with obesity, atrial fibrillation, HFrEF, and recent hospitalizations who was transferred to [facility] after hospitalization for 2 days at OSH for A fib RVR who developed hematuria with anticoagulation. Food and Nutrition Related History: relates variable intake, edema Weight changes: Wt Readings from Last 8 Encounters: 04/20/25 (!) 142.1 kg (313 lb 4.4 oz) Subjective Global Assessment: Weight: During the past 2 weeks the patient's weight has: (P) Not Changed (04/25/251499) Food Intake: Compared to normal intake, over the past month the patient's intake has been: (P) Lessthan usual (04/25/251499) Less than usual: (P) Normal food but less than normal amounts (04/25/251499) Symptoms: Patient reports the following problems that have kept them from eating enough during the past 2 weeks: (P) Feel full quickly;Fatigue (04/25/251499) Activities & Function: Over the past month the patient generally rates their activity as: : (P)Very low energy, spend most of the day in bed or chair (04/25/251499) Total score = SGA Score : (P) 7 (04/25/251499) Nutrition Focused Exam Physical Findings- Summary: Malnutrition Nutrition Diagnosis: (P) Limited findings, Unable to diagnose with malnutrition at this time (04/25/251499) Subcutaneous Fat Loss Assessment: (P) No findings (04/25/251499) Muscle Wasting Assessment: (P) No findings (04/25/251499) Edema: (P) Rounded contour with a deep depression or pit that persists (severe) (04/25/251499) Hand High Speed Operator: (P) Strong clerk television production (no findings) (04/25/251499) Percentage of Energy: (P) < 75% for > 7 days (moderate-acute) (04/25/251499) Percentage of Weight Loss: (P) No history of significant wt loss (04/25/251499) Estimated Needs: Estimated Energy Target: (P) 2300 - 2700 (04/25/251499) Estimated Protein Target: (P) 92 - 125 (04/25/251499) Estimated Fluid Target : (P) ~ 2300 (04/25/251499) Nutrition Energy Formula: (P) Calories per kilogram (04/25/251499) Weight Used for Formula: (P) Adjusted body weight (04/25/251499) Clinical Data: Height: 5' 11 (180.3 cm) (04/20/25114) [place] body weight: 75.3 kg (166 lb 0.1 oz) Adjusted ideal body weight: 102 kg (224 lb 14.6 oz) Body mass index is 43.69 kg/m??. Admission:Weight: (!) 141.8 kg (312 lb 9.8 oz) (04/20/25114) Weight Method: Actual (04/20/25114) Current:Weight: (!) 142.1 kg (313 lb 4.4 oz) (04/20/25318) Wt Readings from Last 8 Encounters: 04/20/25 (!) 142.1 kg (313 lb 4.4 oz) Labs Recent Labs 04/23/25 0312 04/24/25 0510 04/25/25 0440 GLUCOSE 187* 90 86 BUN 89* 82* 68* CREAT 2.33* 2.06* 1.86* GFR 30* 34* 39* NA 134* 139 139 K 3.6 3.2* 3.3* CO2 19* 21* 19* ANIONGAP 18 15 17 CA 9.8 10.3* 10.5* MG 1.9 1.9 1.7 Lab Results Component Value Date/Time MG 1.7 04/25/2025 04:40 AM Current Diet and Intake: DIET CARDIAC Low Cholesterol (AHA),; 2GM Sodium (Low), Food/Meal: Lunch (04/25/25 1400),Intake (%): 60% (04/25/25 1400) , Skin: Wound 04/24/25 1428 Bilateral gluteal Irritant Contact Dermatitis Moisture Related-Drainage Amount:no drainage (04/25/25 1030) Jacob Score: 16 (04/25/25 0704) Gastrointestinal: Last Bowel Movement (mm/dd/yyyy): 04/24/25 (04/24/25 0119) Stool Consistency - Reference [place] Stool Chart: hard - (type 1) (04/24/25 0119) Bowel Sounds: All Quadrants: hyperactive (04/24/25 1540) Pertinent M Allergies: Allergies Allergen Reactions Penicillins Unknown No past medical history on file. Time spent:Consultation Time (mins): (P) 25 mins (04/25/25 1500) NA EXPERT * Uvaldo Huber MD - 04/25/2025 11:05 AM CST Nephrology progress note. Attending Physician: Komal Crandall MD Reason for consultation: acute kidney injury Hospital course Kristopher Leblanc is a 67 y.o. male with obesity, atrial fibrillation, HFrEF, and recent hospitalizations who was transferred to [facility] after hospitalization for 2 days at OSH for A fib RVR who developed hematuria with anticoagulation. Upon arrival creatinine 2.66. Up to 3.14 today. He had montejo placed, with persistent hematuria. No montejo with non bloody urine, full montejo bag. He had been on diuretics as outpatient. LE swelling is down. Reports oral intake down some. BUN 102. BP stable currently, hadbeen lower prior. K 3.[address] at OSH with diffuse bladder wall thickening, suspicion for cystitis. No hydronephrosis. High urine output with montejo. 5L. CBI this AM. Subjective- No new complaints. No dyspnea. No past medical history on file. No past surgical history on file. No medications prior to admission. Allergies Allergen Reactions Penicillins Unknown Social History Tobacco Use Smoking status: Never Smokeless tobacco: Never Substance Use Topics Alcohol use: Not Currently No family history on file. Review of Systems History obtained from the patient General ROS: + weakness ENT ROS:+ dry mouth Endocrine ROS: no polyuria/+ polydipsia Respiratory ROS: no dyspnea Cardiovascular ROS: no chest pain, some palpitations Gastrointestinal ROS: no diarrhea, abdominal pain Genito-Urinary ROS: montejo, higher UOP Musculoskeletal ROS: + weakness Neurological ROS: no seizures Objective: BP 133/86 Pulse (!) 226 Temp 97.2 ??F (36.2 ??C) (Temporal) Resp 19 Ht 5' 11 (1.803 m) Wt (!) 142.1 kg (313 lb 4.4 oz) SpO2 95% BMI 43.69 kg/m?? General appearance: alert, in no distress, obese Head: atraumatic, Normocephalic, without obvious abnormality Neck: no JVD Lungs: clear to auscultation bilaterally Heart: normal rate, regular rhythm, normal S1, S2, no murmurs, rubs, clicks or gallops Abdomen: Soft, non-tender. Bowel sounds normal. No masses, no organomegaly. Extremities: nodular edema, Skin: nodular hyperpigmentation bilateral Neurologic: Grossly normal Musculoskeletal: no joint tenderness, deformity or swelling Data Review: Results for orders placed or performed during the hospital encounter of 04/20/25 (from the past 24 hours) HEMOGLOBIN AND HEMATOCRIT Result Value Ref Range HEMOGLOBIN 8.1 (L) 14.0 - 18.0 g/dL HEMATOCRIT 26.8 (L) 41.0 - 53.0 % CBC WITH DIFFERENTIAL Result Value Ref Range WBC 6.0 4.8 - 10.8 K/uL RBC 3.33 (L) 4.60 - 6.20 M/uL HEMOGLOBIN 8.7 (L) 14.0 - 18.0 g/dL HEMATOCRIT 29.2 (L) 41.0 - 53.0 % MCV 87.7 84.0 - 103.0 fL MCH 26.1 (L) 27.0 - 34.0 pg MCHC 29.8 (L) 30.0 - 35.0 g/dL PLATELETS 204 140 - 440 K/uL MPV 9.7 8.9 - 12.8 fL RDW 19.4 (H) 11.0 - 14.5 % RDW-STDEV 62.1 (H) 37.0 - 54.0 fL NEUTROPHILS 71 42 - 75 % LYMPHOCYTES 15 (L) 24 - 44 % MONOCYTES 9 2 - 10 % EOSINOPHILS 3 0 - 7 % BASOPHILS 1 0 - 1 % IMMATURE GRANULOCYTES 1 0 - 2 % NEUTROPHIL ABSOLUTE 4.30 2.00 - 8.00 K/uL LYMPHOCYTE ABSOLUTE 0.87 (L) 1.20 - 4.00 K/uL MONOCYTE ABSOLUTE 0.54 0.10 - 0.60 K/uL EOSINOPHIL ABSOLUTE 0.20 0.00 - 0.70 K/uL BASOPHILS ABSOLUTE 0.05 0.00 - 0.20 K/uL IMMATURE GRANULOCYTES ABSOLUTE 0.06 0.00 - 0.10 K/uL SMEAR REVIEWED: NA - Not Applicable BASIC METABOLIC PANEL Result Value Ref Range SODIUM 139 136 - 145 mmol/L POTASSIUM 3.3 (L) 3.5 - 5.1 mmol/L CHLORIDE 103 98 - 107 mmol/L CO2 19 (L) 22 - 29 mmol/L CALCIUM 10.5 (H) 8.8 - 10.2 mg/dL BUN 68 (H) 8 - 23 mg/dL CREATININE 1.86 (H) 0.67 - 1.17 mg/dL GLUCOSE 86 74 - 99 mg/dL GFR 39 (L) >=60 mL/min/1.73 sq meter ANION GAP 17 9 - 20 mmol/L MAGNESIUM LEVEL Result Value Ref Range MAGNESIUM 1.7 1.6 - 2.4 mg/dL UNFRACTIONATED HEPARIN MONITORING Result Value Ref Range ANTI-XA UNFRAC HEP 0.29 See Interpretation IU/mL Renal US IMPRESSION: 1. Unremarkable right kidney. 2. Multiple left renal cysts. The largest is a simple appearing 6.8 cm cyst. 3. The gallbladder is incidentally noted to be abnormally enlarged and contains at least one small stone. 4. There is a nonspecific 2.2 cm hypoechoic nodule between the upper pole of the left kidney and the spleen that could be a small accessory spleen, adrenal nodule or abnormal lymph node. Assessment/Plan Acute kidney injury- secondary to dehydration, and possible obstructive uropathy. UOP hard to tell.Creatinine down to 1.8, BUN still 80. Continue with IVFs. Holding diuretics. Stopping IVFs today. BP stable currently. Avoid nephrotoxins. CBI off. Urology following. 2. Hematuria- resolved. Urology following. 3. Systolic HF- EF 30%. Does not appear to be decompensated, suspect some intravascular volume depletion. Holding diuretics. Started on some IVFs. Will stop IVFs today. 4. Hypokalemia- with prior diuresis. Replace k IV. Mag stable. K goal >4 with hx afib. NA EXPERT * Karyn Walters PA-C - 04/25/2025 11:04 AM CST 04/25/2025 Urology Progress note Subjective: Pt is without complaint Objective: CBI clamped, clear UOP Hbg remains stable Current vital signs Blood pressure 133/86, pulse (!) 226, temperature 97.2 ??F (36.2 ??C), temperature source Temporal,resp. rate 19, height 5' 11 (1.803 m), weight (!) 142.1 kg (313 lb 4.4 oz), SpO2 95%. 24 hour BP and temperature range BP: (101-133)/(67-88) Temp (24hrs), Av.7 ??F (36.5 ??C), Min:96.8 ??F (36 ??C), Max:98.2 ??F (36.8 ??C) Input/Output 04/23 1900 - 04/25 0659 In: 2575 [P.O.:325] Out: 41573 [Urine:69079] Physical Exam: Abdomen: abdomen is soft without significant tenderness Wound: Urine:3-way montejo in place and clamped, UOP clear in bag/tubing Labs: BMP: Recent Labs 04/22/25 1430 04/23/25 0312 04/24/25 0510 04/25/25 0440 GLUCOSE -- 187* 90 86 BUN -- 89* 82* 68* CREAT -- 2.33* 2.06* 1.86* NA -- 134* 139 139 K 3.8 3.6 3.2* 3.3* CL -- 97* 103 103 CO2 -- 19* 21* 19* ANIONGAP -- 18 15 17 MG -- 1.9 1.9 1.7 estimated creatinine clearance is 54.8 mL/min (A) (by C-G formula based on SCr of 1.86 mg/dL (H)). CBC: Recent Labs 04/22/25 1430 04/22/25 2124 04/22/25 2322 04/23/25 0312 04/23/25 0611 04/23/25 1324 04/23/25 2040 04/24/25 0039 04/24/25 0510 04/24/25 1632 04/25/25 0440 WBC -- -- -- 7.0 -- -- -- -- -- -- 6.0 HGB 9.5* 8.1* 8.3* 8.4* 8.3* 8.9* 8.8* 8.4* 8.5* 8.1* 8.7* HCT 31.4* 27.3* 27.7* 28.1* 27.3* 29.6* 29.4* 27.7* 28.2* 26.8* 29.2* PLT -- -- -- 210 -- -- -- -- -- -- 204 MCV -- -- -- 87.3 -- -- -- -- -- -- 87.7 Coagulation: No results for input(s): PT , INR , APTT in the last 72 hours. Assessment: Principal Problem: Atrial fibrillation with rapid ventricular response ([facility]) Active Problems: CHRIS (acute kidney injury) Hematuria HFrEF (heart failure with reduced ejection fraction) ([facility]) Hyperparathyroidism Bilateral lower extremity edema Elevated troponin Plan: NO intervention Still on anticoag per cardiology- recent cardioversion Keep CBI clamped. Continue to monitor UOP, ok for hand irrigation PRN. Hgb improved. Will need f/u as OP to complete hematuria workup Karyn Walters PA-C 11:04 AM Cosigned by Dilcia Salmon MD at 04/27/2025 4:16 AM BANANA EXPERT NA EXPERT NA EXPERT * Tara Jiang MD - 04/25/2025 7:39 AM CST S: Pt has no complain of CP, SOB, Dizziness, No fever or Chill. No significant palpitation. Tolerating medication. Review of System: Consitutional: no fever or chills Neurologic: No significant headache, recent stroke, or seizure. Eyes: No double visual ENT: No earache, nasal bleeding or signigicant sore throat Cardiac: as HPI Pulmonary: no cough off blood, or significant change in sputum production Gastrointestinal: No significant and prolonged diarrhea or constipation Genitourinary: No hematuria, dysuria. Skin: no significant rash Psychiatric: No clear depression Musculoskeletal: no significant change in myalgias or arthralgias O: Blood pressure 108/86, pulse (!) 140, temperature 98.2 ??F (36.8 ??C), temperature source Temporal, resp. rate 17, height 5' 11 (1.803 m), weight (!) 142.1 kg (313 lb 4.4 oz), SpO2 94%. Pt is alert and oriented x 3, no apparent distress, VSS, afibril Heart: irregular no sig. Murmur Lung: CTA, with minimal crakles ABD: Non-tender, Soft and +BS Leg: Trace edema Lab: Lab Results Component Value Date WBC 6.0 04/25/2025 HGB 8.7 (L) 04/25/2025 HCT 29.2 (L) 04/25/2025 PLT 204 04/25/2025 MCV 87.7 04/25/2025 Lab Results Component Value Date NA 139 04/25/2025 K 3.3 (L) 04/25/2025 CL 103 04/25/2025 CO2 19 (L) 04/25/2025 CA 10.5 (H) 04/25/2025 BUN 68 (H) 04/25/2025 CREAT 1.86 (H) 04/25/2025 GLUCOSE 86 04/25/2025 ANIONGAP 17 04/25/2025 No results found for: CPK , CKMB , TROPONIN , TROPONIINT , TROPINTR Current Facility-Administered Medications Medication Dose Route Frequency Provider Last Rate Last Admin [COMPLETED] heparin injection 1,500 Units 15 Units/kg (Adjusted) IV ONE time only Komla Crandall MD 1,500 Units at 04/25/25 0522 [COMPLETED] potassium CHLORIDE 40 mEq in sodium chloride 0.9 % 250 mL IVPB 40 mEq IV ONE time only Uvaldo Huber MD Stopped at 04/24/25 1228 metoprolol succinate (TOPROL XL) SR 24 hour tablet 25 mg 25 mg Oral daily Tara Jiang MD 25 mg at 04/24/25 0847 lactated ringers infusion IV continuous Uvaldo Huber MD 75 mL/hr at 04/24/25 1808 Bag Switched at 04/24/25 1808 fentaNYL (PF) (SUBLIMAZE) 50 mcg/mL injection 200 mcg 200 mcg IV intra-proc PRN Aman Robles MD 25 mcg at 04/23/25 0920 midazolam (VERSED) injection 10 mg 10 mg IV intra-proc PRN Aman Robles MD 1 mg at 04/23/25 0923 [] sodium chloride 0.9 % infusion IV continuous Aman Robles MD Stopped at 04/24/25 0814 sodium chloride flush injection 10 mL 10 mL IV intra-proc PRN Aman Robles MD 10 mL at 04/23/25 0850 atropine injection 0.5 mg 0.5 mg IV intra-proc PRN Aman Robles MD ipratropium-albuteroL (DUONEB) 0.5 mg-3 mg(2.5 mg base)/3 mL inhalation solution 3 mL 3 mL Inhalation resp, every 4 hours PRN Komal Crandall MD amiodarone (CORDARONE) tablet 400 mg 400 mg Oral BID Tara Jiang MD 400 mg at 04/24/252036 [] lactated ringers infusion IV continuous Uvaldo Huber MD Stopped at 04/24/25 1259 naloxone (NARCAN) 0.4 mg/mL injection 0.1-0.4 mg 0.1-0.4 mg IV see admin instructions Gregorio Rogers MD acetaminophen (TYLENOL) tablet 650 mg 650 mg Oral every 6 hours PRN Gregorio Rogers MD 650 mg at 04/24/25 1929 cefTRIAXone (ROCEPHIN) 2,000 mg in sodium chloride 0.9% 50 mL IVPB (MBP) 2,000 mg IV daily Gregorio Rogers MD Stopped at 04/24/25 0907 heparin in 0.45% NaCl 25,000 unit/250 mL infusion 22 Units/kg/hr (Adjusted) IV titrate Komal Crandall MD 22.4 mL/hr at 04/25/25 0518 22 Units/kg/hr at 04/25/25 0518 polyethylene glycol (MIRALAX) packet 17 Gram 17 Gram Oral daily Maricruz Galvan MD 17 Gram at 04/23/25 1041 sennosides (SENOKOT) tablet 8.6 mg 8.6 mg Oral daily Maricruz Galvan MD 8.6 mg at 04/23/25 1040 A/P 67 M, hx of HTN, hyperlipidemia, DM. Hx of [place], Hx of afib and V fib. Cardiogenic shock. LVEF 20s% and angio 2021 rodas no intervention needed. Here for afib/cm and cardiogenic shock. May have hematuria.Poor historian EKG at admission, afib LBBB and PVC. Troponin 139, 147 with Cr 2.66, Hg 8.9 CM, LVEF 25-30% soft BP and high Cr limit HF meds. Trial of toprol 25. His CR is better now at 1.8 Afib, s/p FRED/DCCV Continue heparin. FRED/DCCV 04/23/2025. Back into afib 04/24/2025. Rate control for now. Heparin change to eliquis when dc Amio po loading 400 bid for another 1 week, then DCCV again Monitor urine output and Cr Up titrate toprol gradually NA EXPERT NA EXPERT * Rhonda Ahn Physical Therapist - 04/24/2025 2:50 PM CST Attempted to see patient for PT evaluation. PT order recognized. Collaborated with OT and determined patient is at functional baseline. PT will sign off. Thank you, Rhonda Ahn Physical Therapist NA EXPERT * Komal Crandall MD - 04/24/2025 1:19 PM CST Images from the original note were not included. Your life is our life's work [facility] Hospitalist/[facility] Medicine Progress Note LOS: 4 days Room/Bed: 4257/01 Patient name: Kristopher Leblanc Date of : 02/28/1958 HOSPITAL COURSE SUMMARY: Kristopher Leblanc is a 67 y.o. male with obesity, atrial fibrillation, HFrEF, and recent hospitalizations who was transferred to [facility] after hospitalization for 2 days at OSH for A fib RVR who developed hematuria with anticoagulation. Upon arrival he was on amiodarone drip, montejo catheter with bloody output. Cardiology and urology were consulted. 04/20: getting VASCULAR TECHNOLOGIST med list; continue amio, heparin trial ok with urology; CBI 04/21: Cr worse, nephrology consulted; cystoscopy this AM; TTE pending; possible FRED/DCCV tomorrow, continue amio 04/22 assumed patient care. Patient seen at bedside, reported feeling well. Heparin was resumed today after discussion with urology. Cardioversion could not be completed given he was not on anticoagulation and potassium was 3.3. Replacing potassium. 04/23: Cardioversion completed this morning. Patient was in sinus rhythm at time of encounter. CBI clamped this morning per urology. No indication for intervention today per urology. N.p.o. today and reassessment in the a.m. for possible need for cystoscopy. Continues to be on heparin 04/24: Patient is back in A-fib with RVR, EP on board, amiodarone loading and Toprol try CBI clamped per urology today, urine only slightly pink-tinged, will continue to monitor, he will need outpatient follow-up for complete workup of hematuria Continue anticoagulation Will start discharge planning once heart rate is better controlled Consultants: IP CONSULT TO CARDIOLOGY IP CONSULT TO UROLOGY IP CONSULT TO IV TEAM IP CONSULT TO NEPHROLOGY IP CONSULT TO CARDIAC REHAB SUBJECTIVE: Patient offers no complaints. Remaining as mentioned above. No acute events overnight ROS: History obtained from the patient Psychological: no Depression, no Suicide ideation/thoughts Constitutional: negative for fever, chills, negative for confusion, fatigue Pulmonary: negative for dyspnea, no cough Cardiovascular: negative for chest pain, no palpitations, no orthopnea GI: negative for nausea, vomiting, diarrhea and constipation, no abdominal pain Renal: no dysuria, no hematuria Musculoskeletal: no back pain, no joint pain, no calf swelling Neuro: negative for headache, no vision changes, no dizziness Skin: no skin rash, no redness OBJECTIVE: Temp (24hrs), Av.4 ??F (36.3 ??C), Min:97 ??F (36.1 ??C), Max:97.8 ??F (36.6 ??C) BP 117/88 (BP Location: Left arm, Patient Position (BP): Supine) Pulse (!) 214 Temp 97.3 ??F (36.3 ??C) (Temporal) Resp 20 Ht 5' 11 (1.803 m) Wt (!) 142.1 kg (313 lb 4.4 oz) SpO2 93% BMI 43.69 kg/m?? Intake/Output Summary (Last 24 hours) at 04/24/2025 1319 Last data filed at 04/24/2025 1105 Gross per 24 hour Intake 2250 ml Output 7226 ml Net -4976 ml Last documented weight: Weight: (!) 142.1 kg (313 lb 4.4 oz) (04/20/25 0319) EXAM: General: alert, in no distress Neurologic: Grossly normal HEENT: atraumatic, Normocephalic, without obvious abnormality Lungs: clear to auscultation bilaterally, normal respiratory effort Heart: tachycardic, irregular rhythm Abdomen: obese, soft, nontender Extremities: BLE edema Skin: negative LABORATORY: Recent Labs 04/21/25 1813 04/22/25 0001 04/22/25 0445 04/22/25 1430 04/22/25 2124 04/22/25 2322 04/23/25 0312 04/23/25 0611 04/23/25 1324 04/23/25 2040 04/24/25 0039 04/24/25 0510 WBC -- -- 8.1 -- -- -- 7.0 -- -- -- -- -- HGB 8.3* 8.0* 8.5* 9.5* 8.1* 8.3* 8.4* 8.3* 8.9* 8.8* 8.4* 8.5* HCT 27.8* 26.3* 28.6* 31.4* 27.3* 27.7* 28.1* 27.3* 29.6* 29.4* 27.7* 28.2* PLT -- -- 201 -- -- -- 210 -- -- -- -- -- Recent Labs 04/22/25 0445 04/22/25 1430 04/23/25 0312 04/24/25 0510 NA 136 -- 134* 139 K 3.3* 3.8 3.6 3.2* CL 97* -- 97* 103 CO2 20* -- 19* 21* CA 10.2 -- 9.8 10.3* BUN 102* -- 89* 82* CREAT 3.14* -- 2.33* 2.06* GLUCOSE 155* -- 187* 90 No results for input(s): TOTALPROTEIN , ALBUMIN , BILITOTAL , ALKPHOS , AST , ALT in the last 72 hours. No results for input(s): INR , PT in the last 72 hours. Invalid input(s): PTT No results for input(s): BASETROP , 2HRTROP , DELTA , 6HRTROP in the last 72 hours. Diagnostic testing reviewed by me: Medications were reviewed by me. Current Facility-Administered Medications: [COMPLETED] potassium CHLORIDE 40 mEq in sodium chloride 0.9 % 250 mL IVPB, 40 mEq, IV, ONE time only, Uvaldo Huber MD, Last Rate: 76.25 mL/hr at 04/24/25827, 40 mEq at 04/24/25827 metoprolol succinate (TOPROL XL) SR 24 hour tablet 25 mg, 25 mg, Oral, daily, Tara Jiang MD,25 mg at 04/24/25 0847 lactated ringers infusion, , IV, continuous, Uvaldo Huber MD, Last Rate: 75 mL/hr at 316, New Bag at 04/24/25 1316 fentaNYL (PF) (SUBLIMAZE) 50 mcg/mL injection 200 mcg, 200 mcg, IV, intra-proc PRN, Aman Robles MD, 25 mcg at 04/23/25 0920 midazolam (VERSED) injection 10 mg, 10 mg, IV, intra-proc PRN, Aman Robles MD, 1 mg at 923 [] sodium chloride 0.9 % infusion, , IV, continuous, Aman Robles MD, Stopped at 814 sodium chloride flush injection 10 mL, 10 mL, IV, intra-proc PRN, Aman Robles MD, 10 mL at 04/23/25 0850 atropine injection 0.5 mg, 0.5 mg, IV, intra-proc PRN, Aman Robles MD ipratropium-albuteroL (DUONEB) 0.5 mg-3 mg(2.5 mg base)/3 mL inhalation solution 3 mL, 3 mL, Inhalation, resp, every 4 hours PRN, Komal Crandall MD amiodarone (CORDARONE) tablet 400 mg, 400 mg, Oral, BID, ApolinarTara MD, 400 mg at 04/24/25 0847 [COMPLETED] potassium CHLORIDE 20 mEq/100 mL IVPB 20 mEq, 20 mEq, IV, ONE time only, Uvaldo Huber MD, Stopped at 04/23/25 1627 [] lactated ringers infusion, , IV, continuous, Uvaldo Huber MD, Stopped at 04/24/25 1259 [COMPLETED] heparin injection 1,500 Units, 15 Units/kg (Adjusted), IV, ONE time only, Komal Crandall MD, 1,500 Units at 04/23/25 2039 naloxone (NARCAN) 0.4 mg/mL injection 0.1-0.4 mg, 0.1-0.4 mg, IV, see admin instructions, Gregorio Rogers MD acetaminophen (TYLENOL) tablet 650 mg, 650 mg, Oral, every 6 hours PRN, Gregorio Rogers MD, 650 mg at 04/24/25 0511 cefTRIAXone (ROCEPHIN) 2,000 mg in sodium chloride 0.9% 50 mL IVPB (MBP), 2,000 mg, IV, daily, Gregorio Rogers MD, Stopped at 04/24/25 0907 heparin in 0.45% NaCl 25,000 unit/250 mL infusion, 21 Units/kg/hr (Adjusted), IV, titrate, Komal Crandall MD, Last Rate: 21.4 mL/hr at 04/24/25 0402, 21 Units/kg/hr at 04/24/25 0402 polyethylene glycol (MIRALAX) packet 17 Gram, 17 Gram, Oral, daily, Maricruz Galvan MD, 17 Gram at 04/23/25 1041 sennosides (SENOKOT) tablet 8.6 mg, 8.6 mg, Oral, daily, Maricruz Galvan MD, 8.6 mg at 04/23/25 1040 Primary discharge diagnosis: Atrial fibrillation with rapid ventricular response (CMS/HCC) Other active medical issues also addressed during this admission: Active Hospital Problems Diagnosis Hyperparathyroidism Bilateral lower extremity edema Elevated troponin Atrial fibrillation with rapid ventricular response (CMS/HCC) CHRIS (acute kidney injury) Hematuria HFrEF (heart failure with reduced ejection fraction) (CMS/HCC) Resolved Hospital Problems No resolved problems to display. ASSESSMENT AND PLAN: Atrial fibrillation with RVR HFrEF Elevated troponin Denies chest pain/SOB [facility] 2021 reportedly without concern EKG: LBBB, reportedly baseline Trop 139 - 147 - 152 Cardiology consulted on admission Continue amio Can continue heparin FRED DCCV completed 04/23. EF of 25% 04/24: Patient back in A-fib with RVR, continue Amio and Toprol Hematuria Reported once anticoagulation was started Bleeding resumed prior to resuming heparin Monitor Hgb Urology consulted CBI - -clamped 04/23 Urology holding off on any intervention for now, outpatient workup for hematuria CHRIS- resolving JANENE at OSH (see media): bilateral renal cysts Cr 2.3 - seems to be at baseline Thought to be overdiureses in the transfer paperwork Unable to assess urine lytes with CBI Nephrology consulted 04/21-appreciate recommendations Cystitis CT at OSH (see media): diffuse bladder wall thickening suspicious for cystitis Ceftriaxone (04/20-) Constipation Seen on CT Bowel regimen with senna/miralax BLE edema Venous doppler pending Hyperparathyroidism Elevated calcium PTH 151 Vit D 36 Normocytic anemia Anemia of chronic disease Ferritin 570 Fe 28, % sat 14 Transfuse if < 8 DVT prophylaxis: DVT Pharmacologic Prophylaxis: heparin in 0.45% NaCl 25,000 unit/250 mL infusion [[id number]] - on hold Code status: Full Code Outpatient follow up: PCP Cardiology Urology Anticipated Disposition Location: [facility] pending Timeframe: 04/24/2025 Criteria: clinically stable Patient's understanding of illness: ok MDM complexity: [] Mild [x] Moderate [] High Komal Crandall MD 04/24/2025, 1:19 PM NA EXPERT * Uvaldo Huber MD - 04/24/2025 12:21 PM CST Nephrology progress note. Attending Physician: Komal Crandall MD Reason for consultation: acute kidney injury Hospital course Kristopher Leblanc is a 67 y.o. male with obesity, atrial fibrillation, HFrEF, and recent hospitalizations who was transferred to [facility] after hospitalization for 2 days at OSH for A fib RVR who developed hematuria with anticoagulation. Upon arrival creatinine 2.66. Up to 3.14 today. He had montejo placed, with persistent hematuria. No montejo with non bloody urine, full montejo bag. He had been on diuretics as outpatient. LE swelling is down. Reports oral intake down some. BUN 102. BP stable currently, hadbeen lower prior. K 3.[address] at OSH with diffuse bladder wall thickening, suspicion for cystitis. No hydronephrosis. High urine output with montejo. 5L. CBI this AM. Subjective- No new complaints. No dyspnea. No past medical history on file. No past surgical history on file. No medications prior to admission. Allergies Allergen Reactions Penicillins Unknown Social History Tobacco Use Smoking status: Never Smokeless tobacco: Never Substance Use Topics Alcohol use: Not Currently No family history on file. Review of Systems History obtained from the patient General ROS: + weakness ENT ROS:+ dry mouth Endocrine ROS: no polyuria/+ polydipsia Respiratory ROS: no dyspnea Cardiovascular ROS: no chest pain, some palpitations Gastrointestinal ROS: no diarrhea, abdominal pain Genito-Urinary ROS: montejo, higher UOP Musculoskeletal ROS: + weakness Neurological ROS: no seizures Objective: BP 117/88 (BP Location: Left arm, Patient Position (BP): Supine) Pulse (!) 214 Temp 97.3 ??F (36.3 ??C) (Temporal) Resp 20 Ht 5' 11 (1.803 m) Wt (!) 142.1 kg (313 lb 4.4 oz) SpO2 93% BMI 43.69 kg/m?? General appearance: alert, in no distress, obese Head: atraumatic, Normocephalic, without obvious abnormality Neck: no JVD Lungs: clear to auscultation bilaterally Heart: normal rate, regular rhythm, normal S1, S2, no murmurs, rubs, clicks or gallops Abdomen: Soft, non-tender. Bowel sounds normal. No masses, no organomegaly. Extremities: nodular edema, Skin: nodular hyperpigmentation bilateral Neurologic: Grossly normal Musculoskeletal: no joint tenderness, deformity or swelling Data Review: Results for orders placed or performed during the hospital encounter of 04/20/25 (from the past 24 hours) HEMOGLOBIN AND HEMATOCRIT Result Value Ref Range HEMOGLOBIN 8.9 (L) 14.0 - 18.0 g/dL HEMATOCRIT 29.6 (L) 41.0 - 53.0 % UNFRACTIONATED HEPARIN MONITORING Result Value Ref Range ANTI-XA UNFRAC HEP 0.33 See Interpretation IU/mL UNFRACTIONATED HEPARIN MONITORING Result Value Ref Range ANTI-XA UNFRAC HEP 0.20 See Interpretation IU/mL HEMOGLOBIN AND HEMATOCRIT Result Value Ref Range HEMOGLOBIN 8.8 (L) 14.0 - 18.0 g/dL HEMATOCRIT 29.4 (L) 41.0 - 53.0 % HEMOGLOBIN AND HEMATOCRIT Result Value Ref Range HEMOGLOBIN 8.4 (L) 14.0 - 18.0 g/dL HEMATOCRIT 27.7 (L) 41.0 - 53.0 % UNFRACTIONATED HEPARIN MONITORING Result Value Ref Range ANTI-XA UNFRAC HEP 0.43 See Interpretation IU/mL BASIC METABOLIC PANEL Result Value Ref Range SODIUM 139 136 - 145 mmol/L POTASSIUM 3.2 (L) 3.5 - 5.1 mmol/L CHLORIDE 103 98 - 107 mmol/L CO2 21 (L) 22 - 29 mmol/L CALCIUM 10.3 (H) 8.8 - 10.2 mg/dL BUN 82 (H) 8 - 23 mg/dL CREATININE 2.06 (H) 0.67 - 1.17 mg/dL GLUCOSE 90 74 - 99 mg/dL GFR 34 (L) >=60 mL/min/1.73 sq meter ANION GAP 15 9 - 20 mmol/L MAGNESIUM LEVEL Result Value Ref Range MAGNESIUM 1.9 1.6 - 2.4 mg/dL HEMOGLOBIN AND HEMATOCRIT Result Value Ref Range HEMOGLOBIN 8.5 (L) 14.0 - 18.0 g/dL HEMATOCRIT 28.2 (L) 41.0 - 53.0 % UNFRACTIONATED HEPARIN MONITORING Result Value Ref Range ANTI-XA UNFRAC HEP 0.42 See Interpretation IU/mL Renal US IMPRESSION: 1. Unremarkable right kidney. 2. Multiple left renal cysts. The largest is a simple appearing 6.8 cm cyst. 3. The gallbladder is incidentally noted to be abnormally enlarged and contains at least one small stone. 4. There is a nonspecific 2.2 cm hypoechoic nodule between the upper pole of the left kidney and the spleen that could be a small accessory spleen, adrenal nodule or abnormal lymph node. Assessment/Plan Acute kidney injury- secondary to dehydration, and possible obstructive uropathy. UOP hard to tell.Creatinine down to 2.0, BUN still 80. Continue with IVFs. Holding diuretics. Likely to stop IVFs tomorrow. BP stable currently. Avoid nephrotoxins. CBI off. Urology following. 2. Hematuria- no reports of obstruction. CBI this AM. Urology following Montejo with clearer urine now. If doing a voiding trial would consider doing before discharge to monitor renal function. 3. Systolic HF- EF 30%. Does not appear to be decompensated, suspect some intravascular volume depletion. Holding diuretics. Started on some IVFs. 4. Hypokalemia- with prior diuresis. Replace k IV. Mag stable. K goal >4 with hx afib. NA EXPERT NA EXPERT * Karyn Walters PA-C - 04/24/2025 9:56 AM CST 04/24/2025 Urology Progress note Re: Hematuria/CBI Subjective: Pt is without complaint CBI has been on slow drip since yesterday. UOP clear Objective: Hgb stable. Current vital signs Blood pressure 125/80, pulse (!) 227, temperature 97.5 ??F (36.4 ??C), temperature source Temporal,resp. rate 14, height 5' 11 (1.803 m), weight (!) 142.1 kg (313 lb 4.4 oz), SpO2 95%. 24 hour BP and temperature range BP: (104-139)/(68-97) Temp (24hrs), Av.4 ??F (36.3 ??C), Min:97 ??F (36.1 ??C), Max:97.8 ??F (36.6 ??C) Input/Output 04/22 1900 - 04/24 0659 In: 1721.2 [I.V.:1721.2] Out: 9801 [Urine:9800] Physical Exam: Abdomen: abdomen is soft without significant tenderness Wound: Urine:3-way montejo in place, slow drip, UOP clear in bag/tubing Labs: BMP: Recent Labs 04/22/25 04404/22/25 1430 04/23/25 0312 04/24/25 0510 GLUCOSE 155* -- 187* 90 BUN 102* -- 89* 82* CREAT 3.14* -- 2.33* 2.06* NA 136 -- 134* 139 K 3.3* 3.8 3.6 3.2* CL 97* -- 97* 103 CO2 20* -- 19* 21* ANIONGAP 19 -- 18 15 MG 2.0 -- 1.9 1.9 estimated creatinine clearance is 49.5 mL/min (A) (by C-G formula based on SCr of 2.06 mg/dL (H)). CBC: Recent Labs 04/21/25 1249 04/21/25 1813 04/22/25 0001 04/22/25 0445 04/22/25 1430 04/22/25 2124 04/22/25 2322 04/23/25 0312 04/23/25 0611 04/23/25 1324 04/23/25 2040 04/24/25 0039 04/24/25 0510 WBC -- -- -- 8.1 -- -- -- 7.0 -- -- -- -- -- HGB 8.2* 8.3* 8.0* 8.5* 9.5* 8.1* 8.3* 8.4* 8.3* 8.9* 8.8* 8.4* 8.5* HCT 27.2* 27.8* 26.3* 28.6* 31.4* 27.3* 27.7* 28.1* 27.3* 29.6* 29.4* 27.7* 28.2* PLT -- -- -- 201 -- -- -- 210 -- -- -- -- -- MCV -- -- -- 87.5 -- -- -- 87.3 -- -- -- -- -- Coagulation: No results for input(s): PT , INR , APTT in the last 72 hours. Assessment: Principal Problem: Atrial fibrillation with rapid ventricular response ([facility]/HCC) Active Problems: CHRIS (acute kidney injury) Hematuria HFrEF (heart failure with reduced ejection fraction) (CMS/[facility]) Hyperparathyroidism Bilateral lower extremity edema Elevated troponin Plan: CBI clamped Monitor UOP and titrate to keep clear to pink tinged. No plan for OR today, ok for diet. If he remains stable and UOP clear will consider voiding trial in 1-2 days. Will need f/u as OP to complete hematuria workup Karyn Walters PA-C 9:57 AM Cosigned by Dilcia Salmon MD at 04/27/2025 4:14 AM BANANA EXPERT NA EXPERT NA EXPERT * Tara Jiang MD - 04/24/2025 7:44 AM CST S: Pt has no complain of CP, SOB, Dizziness, No fever or Chill. No significant palpitation. Tolerating medication. Review of System: Consitutional: no fever or chills Neurologic: No significant headache, recent stroke, or seizure. Eyes: No double visual ENT: No earache, nasal bleeding or signigicant sore throat Cardiac: as HPI Pulmonary: no cough off blood, or significant change in sputum production Gastrointestinal: No significant and prolonged diarrhea or constipation Genitourinary: No hematuria, dysuria. Skin: no significant rash Psychiatric: No clear depression Musculoskeletal: no significant change in myalgias or arthralgias O: Blood pressure (!) 117/96, pulse (!) 227, temperature 97.5 ??F (36.4 ??C), temperature source Temporal, resp. rate 14, height 5' 11 (1.803 m), weight (!) 142.1 kg (313 lb 4.4 oz), SpO2 95%. Pt is alert and oriented x 3, no apparent distress, VSS, afibril Heart: irreuglar, no sig. Murmur Lung: CTA, with minimal crakles ABD: Non-tender, Soft and +BS Leg: Trace edema Lab: Lab Results Component Value Date WBC 7.0 04/23/2025 HGB 8.5 (L) 04/24/2025 HCT 28.2 (L) 04/24/2025 PLT 210 04/23/2025 MCV 87.3 04/23/2025 Lab Results Component Value Date NA 139 04/24/2025 K 3.2 (L) 04/24/2025 CL 103 04/24/2025 CO2 21 (L) 04/24/2025 CA 10.3 (H) 04/24/2025 BUN 82 (H) 04/24/2025 CREAT 2.06 (H) 04/24/2025 GLUCOSE 90 04/24/2025 ANIONGAP 15 04/24/2025 No results found for: CPK , CKMB , TROPONIN , TROPONIINT , TROPINTR Current Facility-Administered Medications Medication Dose Route Frequency Provider Last Rate Last Admin potassium CHLORIDE 40 mEq in sodium chloride 0.9 % 250 mL IVPB 40 mEq IV ONE time only Uvaldo Huber MD [COMPLETED] benzocaine (HURRICAINE) 20 % spray Mouth/Throat intra-proc ONE time Aman Robles MD 0.5 [place] at 04/23/25 0844 fentaNYL (PF) (SUBLIMAZE) 50 mcg/mL injection 200 mcg 200 mcg IV intra-proc PRN Aman Robles MD25 mcg at 04/23/25 0920 [COMPLETED] lidocaine 2% jelly 10 mL 10 mL See Admin Instructions intra-proc ONE time Aman Robles MD 6 mL at 04/23/25 0844 midazolam (VERSED) injection 10 mg 10 mg IV intra-proc PRN Aman Robles MD 1 mg at 04/23/25 0923 sodium chloride 0.9 % infusion IV continuous Aman Robles MD 40 mL/hr at 04/23/25 0853 New Bag at 04/23/25 0853 sodium chloride flush injection 10 mL 10 mL IV intra-proc PRN Aman Robles MD 10 mL at 04/23/25 0850 atropine injection 0.5 mg 0.5 mg IV intra-proc PRN Aman Robles MD ipratropium-albuteroL (DUONEB) 0.5 mg-3 mg(2.5 mg base)/3 mL inhalation solution 3 mL 3 mL Inhalation resp, every 4 hours PRN Komal Crandall MD amiodarone (CORDARONE) tablet 400 mg 400 mg Oral BID Tara Jiang MD 400 mg at 04/23/252032 [COMPLETED] potassium CHLORIDE 20 mEq/100 mL IVPB 20 mEq 20 mEq IV ONE time only Uvaldo Huber MD Stopped at 04/23/25 1627 lactated ringers infusion IV continuous Uvaldo Huber MD 75 mL/hr at 04/24/25 0401 New Bag at 04/24/25 0401 [COMPLETED] heparin injection 1,500 Units 15 Units/kg (Adjusted) IV ONE time only Komal Crandall MD 1,500 Units at 04/23/252038 [] lactated ringers infusion IV continuous Uvaldo Huber MD Stopped at 04/23/25 1214 naloxone (NARCAN) 0.4 mg/mL injection 0.1-0.4 mg 0.1-0.4 mg IV see admin instructions Gregorio Rogers MD acetaminophen (TYLENOL) tablet 650 mg 650 mg Oral every 6 hours PRN Gregorio Rogers MD 650 mg at 04/24/25 0511 cefTRIAXone (ROCEPHIN) 2,000 mg in sodium chloride 0.9% 50 mL IVPB (MBP) 2,000 mg IV daily Gregorio Rogers MD Stopped at 04/23/25 1023 heparin in 0.45% NaCl 25,000 unit/250 mL infusion 21 Units/kg/hr (Adjusted) IV titrate Komal Crandall MD 21.4 mL/hr at 04/24/25 0402 21 Units/kg/hr at 04/24/25 0402 polyethylene glycol (MIRALAX) packet 17 Gram 17 Gram Oral daily Maricruz Galvan MD 17 Gram at 04/23/25 1041 sennosides (SENOKOT) tablet 8.6 mg 8.6 mg Oral daily Maricruz Galvan MD 8.6 mg at 04/23/25 1040 [DISCONTINUED] amiodarone in dextrose (ISO-OSM) (NEXTERONE) 360 mg/200 mL (1.8 mg/mL) IV infusion 0.5 mg/min IV continuous Gregorio Rogers MD Stopped at 04/23/25 1216 A/P 67 M, hx of HTN, hyperlipidemia, DM. Hx of WI, Hx of afib and V fib. Cardiogenic shock. LVEF 20s% and angio 2021 rodas no intervention needed. Here for afib/cm and cardiogenic shock. May have hematuria.Poor historian EKG at admission, afib LBBB and PVC. Troponin 139, 147 with Cr 2.66, Hg 8.9 CM, LVEF 25-30% soft BP and high Cr limit HF meds. Trial of toprol 25 Afib, s/p FRED/DCCV Continue heparin. FRED/DCCV 04/23/2025. Now fast and irregular. May be back to afib. Will need EKG to confirm. Heparin change to eliquis when dc Amio po loading 400 bid for 1 week then daily Monitor urine output and Cr Trial of toprol NA EXPERT * Komal Crandall MD - 04/23/2025 2:53 PM CST Images from the original note were not included. Your life is our life's work [facility] Hospitalist/Hospital Medicine Progress Note LOS: 3 days Room/Bed: [facility]/ Patient name: Kristopher Leblanc Date of : 02/28/1958 HOSPITAL COURSE SUMMARY: Kristopher Leblanc is a 67 y.o. male with obesity, atrial fibrillation, HFrEF, and recent hospitalizations who was transferred to [facility] after hospitalization for 2 days at OSH for A fib RVR who developed hematuria with anticoagulation. Upon arrival he was on amiodarone drip, montejo catheter with bloody output. Cardiology and urology were consulted. 04/20: getting VASCULAR TECHNOLOGIST med list; continue amio, heparin trial ok with urology; CBI 04/21: Cr worse, nephrology consulted; cystoscopy this AM; TTE pending; possible FRED/DCCV tomorrow, continue amio 04/22 assumed patient care. Patient seen at bedside, reported feeling well. Heparin was resumed today after discussion with urology. Cardioversion could not be completed given he was not on anticoagulation and potassium was 3.3. Replacing potassium. 04/23: Cardioversion completed this morning. Patient was in sinus rhythm at time of encounter. CBI clamped this morning per urology. No indication for intervention today per urology. N.p.o. today and reassessment in the a.m. for possible need for cystoscopy. Continues to be on heparin Consultants: IP CONSULT TO CARDIOLOGY IP CONSULT TO UROLOGY IP CONSULT TO IV TEAM IP CONSULT TO NEPHROLOGY IP CONSULT TO CARDIAC REHAB SUBJECTIVE: Patient offers no complaints. Remaining as mentioned above. No acute events overnight ROS: History obtained from the patient Psychological: no Depression, no Suicide ideation/thoughts Constitutional: negative for fever, chills, negative for confusion, fatigue Pulmonary: negative for dyspnea, no cough Cardiovascular: negative for chest pain, no palpitations, no orthopnea GI: negative for nausea, vomiting, diarrhea and constipation, no abdominal pain Renal: no dysuria, no hematuria Musculoskeletal: no back pain, no joint pain, no calf swelling Neuro: negative for headache, no vision changes, no dizziness Skin: no skin rash, no redness OBJECTIVE: Temp (24hrs), Av.6 ??F (36.4 ??C), Min:97.3 ??F (36.3 ??C), Max:98 ??F (36.7 ??C) BP 118/68 (BP Location: Left arm, Patient Position (BP): Supine) Pulse 71 Temp 97.3 ??F (36.3 ??C) (Temporal) Resp 16 Ht 5' 11 (1.803 m) Wt (!) 142.1 kg (313 lb 4.4 oz) SpO2 97% BMI 43.69 kg/m?? Intake/Output Summary (Last 24 hours) at 04/23/2025 1453 Last data filed at 04/23/2025 1023 Gross per 24 hour Intake 3971.22 ml Output 7500 ml Net -3528.78 ml Last documented weight: Weight: (!) 142.1 kg (313 lb 4.4 oz) (04/20/25318) EXAM: General: alert, in no distress Neurologic: Grossly normal HEENT: atraumatic, Normocephalic, without obvious abnormality Lungs: clear to auscultation bilaterally, normal respiratory effort Heart: tachycardic, irregular rhythm Abdomen: obese, soft, nontender Extremities: BLE edema Skin: negative LABORATORY: Recent Labs 04/20/25 1829 04/20/25232004/21/25 0439 04/21/25 1249 04/21/25 1813 04/22/25 0001 04/22/255 04/22/25 1430 04/22/254 04/22/25 2322 04/23/25 0312 04/23/25 0611 04/23/25 1324 WBC -- -- 9.5 -- -- -- 8.1 -- -- -- 7.0 -- -- HGB 9.3* 9.0* 8.5* 8.2* 8.3* 8.0* 8.5* 9.5* 8.1* 8.3* 8.4* 8.3* 8.9* HCT 29.9* 29.2* 28.8* 27.2* 27.8* 26.3* 28.6* 31.4* 27.3* 27.7* 28.1* 27.3* 29.6* PLT -- -- 227 -- -- -- 201 -- -- -- 210 -- -- Recent Labs 04/21/25 0439 04/22/25 0445 04/22/25 1430 04/23/25 0312 NA 134* 136 -- 134* K 3.9 3.3* 3.8 3.6 CL 96* 97* -- 97* CO2 20* 20* -- 19* CA 10.3* 10.2 -- 9.8 BUN 101* 102* -- 89* CREAT 3.10* 3.14* -- 2.33* GLUCOSE 192* 155* -- 187* No results for input(s): TOTALPROTEIN , ALBUMIN , BILITOTAL , ALKPHOS , AST , ALT in the last 72 hours. No results for input(s): INR , PT in the last 72 hours. Invalid input(s): PTT No results for input(s): BASETROP , 2HRTROP , DELTA , 6HRTROP in the last 72 hours. Diagnostic testing reviewed by me: Medications were reviewed by me. Current Facility-Administered Medications: [COMPLETED] heparin injection 3,100 Units, 30 Units/kg (Adjusted), IV, ONE time only, Komal Crandall MD, 3,100 Units at 04/23/25 0036 [COMPLETED] heparin injection 1,500 Units, 15 Units/kg (Adjusted), IV, ONE time only, Komal Crandall MD, 1,500 Units at 04/23/25 0652 [COMPLETED] benzocaine (HURRICAINE) 20 % spray, , Mouth/Throat, intra-proc ONE time, Aman Robles MD, 0.5 [place] at 04/23/25843 fentaNYL (PF) (SUBLIMAZE) 50 mcg/mL injection 200 mcg, 200 mcg, IV, intra-proc PRN, Aman Robles MD, 25 mcg at 04/23/25 0920 [COMPLETED] lidocaine 2% jelly 10 mL, 10 mL, See Admin Instructions, intra-proc ONE time, Aman Robles MD, 6 mL at 04/23/25843 midazolam (VERSED) injection 10 mg, 10 mg, IV, intra-proc PRN, Aman Robles MD, 1 mg at sodium chloride 0.9 % infusion, , IV, continuous, Aman Robles MD, Last Rate: 40 mL/hr at 04/23/25 0853, New Bag at 04/23/25852 sodium chloride flush injection 10 mL, 10 mL, IV, intra-proc PRN, Aman Robles MD, 10 mL at 04/23/25 0850 atropine injection 0.5 mg, 0.5 mg, IV, intra-proc PRN, Aman Robles MD ipratropium-albuteroL (DUONEB) 0.5 mg-3 mg(2.5 mg base)/3 mL inhalation solution 3 mL, 3 mL, Inhalation, resp, every 4 hours PRN, Komal Crandall MD amiodarone (CORDARONE) tablet 400 mg, 400 mg, Oral, BID, ApolinarTara MD, 400 mg at 04/23/25 1240 potassium CHLORIDE 20 mEq/100 mL IVPB 20 mEq, 20 mEq, IV, ONE time only, Uvaldo Huber MD, Last Rate: 50 mL/hr at 04/23/25 1427, 20 mEq at 04/23/25 1427 lactated ringers infusion, , IV, continuous, Uvaldo Huber MD, Last Rate: 75 mL/hr at 425, New Bag at 04/23/25 1425 [] lactated ringers infusion, , IV, continuous, Uvaldo Huber MD, Stopped at 04/23/25 1214 [COMPLETED] heparin injection 3,100 Units, 30 Units/kg (Adjusted), IV, ONE time only, Komal Crandall MD, 3,100 Units at 04/22/25 1608 naloxone (NARCAN) 0.4 mg/mL injection 0.1-0.4 mg, 0.1-0.4 mg, IV, see admin instructions, Gregorio Rogers MD acetaminophen (TYLENOL) tablet 650 mg, 650 mg, Oral, every 6 hours PRN, Gregorio Rogers MD, 650 mg at 04/21/25 205 cefTRIAXone (ROCEPHIN) 2,000 mg in sodium chloride 0.9% 50 mL IVPB (MBP), 2,000 mg, IV, daily, Gregorio Rogers MD, Stopped at 04/23/25 1023 heparin in 0.45% NaCl 25,000 unit/250 mL infusion, 20 Units/kg/hr (Adjusted), IV, titrate, Komal Crandall MD, Last Rate: 20.4 mL/hr at 04/23/25 0649, 20 Units/kg/hr at 04/23/25 0649 polyethylene glycol (MIRALAX) packet 17 Gram, 17 Gram, Oral, daily, Maricruz Galvan MD, 17 Gram at 04/23/25 1041 sennosides (SENOKOT) tablet 8.6 mg, 8.6 mg, Oral, daily, Maricruz Galvan MD, 8.6 mg at 04/23/25 1040 [DISCONTINUED] amiodarone in dextrose (ISO-OSM) (NEXTERONE) 360 mg/200 mL (1.8 mg/mL) IV infusion, 0.5 mg/min, IV, continuous, Gregorio Rogers MD, Stopped at 04/23/25 1216 [DISCONTINUED] heparin injection 6,100 Units, 60 Units/kg (Adjusted), IV, ONE time only, Maricruz Galvan MD Primary discharge diagnosis: Atrial fibrillation with rapid ventricular response (CMS/HCC) Other active medical issues also addressed during this admission: Active Hospital Problems Diagnosis Hyperparathyroidism Bilateral lower extremity edema Elevated troponin Atrial fibrillation with rapid ventricular response (CMS/HCC) CHRIS (acute kidney injury) Hematuria HFrEF (heart failure with reduced ejection fraction) (CMS/HCC) Resolved Hospital Problems No resolved problems to display. ASSESSMENT AND PLAN: Atrial fibrillation with RVR HFrEF Elevated troponin Denies chest pain/SOB [facility] 2021 reportedly without concern EKG: LBBB, reportedly baseline Trop 139 - 147 - 152 Cardiology consulted on admission Continue amio drip Resume heparin FRED DCCV completed 04/23. EF of 25% Hematuria Reported once anticoagulation was started Bleeding resumed prior to resuming heparin Monitor Hgb Urology consulted CBI - -clamped 04/23 Urology holding off on any intervention for now CHRIS- resolving JANENE at OSH (see media): bilateral renal cysts Cr 2.3 - seems to be at baseline Thought to be overdiureses in the transfer paperwork Unable to assess urine lytes with CBI Nephrology consulted 04/[address] at OSH (see media): diffuse bladder wall thickening suspicious for cystitis Ceftriaxone (04/20-) Constipation Seen on CT Bowel regimen with senna/miralax BLE edema Venous doppler pending Hyperparathyroidism Elevated calcium PTH 151 Vit D 36 Normocytic anemia Anemia of chronic disease Ferritin 570 Fe 28, % sat 14 Transfuse if < 8 DVT prophylaxis: DVT Pharmacologic Prophylaxis: heparin in 0.45% NaCl 25,000 unit/250 mL infusion [[id number]] - on hold Code status: Full Code Outpatient follow up: PCP Cardiology Urology Anticipated Disposition Location: [facility], [facility] pending Timeframe: 04/24/2025 Criteria: clinically stable Patient's understanding of illness: ok MDM complexity: [] Mild [x] Moderate [] High Komal Crandall MD 04/23/2025, 2:53 PM NA EXPERT * Uvaldo Huber MD - 04/23/2025 12:51 PM CST Nephrology progress note. Attending Physician: Komal Crandall MD Reason for consultation: acute kidney injury Hospital course Kristpoher Leblanc is a 67 y.o. male with obesity, atrial fibrillation, HFrEF, and recent hospitalizations who was transferred to [facility] after hospitalization for 2 days at OSH for A fib RVR who developed hematuria with anticoagulation. Upon arrival creatinine 2.66. Up to 3.14 today. He had montejo placed, with persistent hematuria. No montejo with non bloody urine, full montejo bag. He had been on diuretics as outpatient. LE swelling is down. Reports oral intake down some. BUN 102. BP stable currently, hadbeen lower prior. K 3.[address] at OSH with diffuse bladder wall thickening, suspicion for cystitis. No hydronephrosis. High urine output with montejo. 5L. CBI this AM. Subjective- CBI this AM. Clear urine. No complaints. Creatinine improving. No past medical history on file. No past surgical history on file. No medications prior to admission. No Known Allergies Social History Tobacco Use Smoking status: Never Smokeless tobacco: Never Substance Use Topics Alcohol use: Not Currently No family history on file. Review of Systems History obtained from the patient General ROS: + weakness ENT ROS:+ dry mouth Endocrine ROS: no polyuria/+ polydipsia Respiratory ROS: no dyspnea Cardiovascular ROS: no chest pain, some palpitations Gastrointestinal ROS: no diarrhea, abdominal pain Genito-Urinary ROS: montejo, higher UOP Musculoskeletal ROS: + weakness Neurological ROS: no seizures Objective: BP 118/68 (BP Location: Left arm, Patient Position (BP): Supine) Pulse 71 Temp 97.3 ??F (36.3 ??C) (Temporal) Resp 16 Ht 5' 11 (1.803 m) Wt (!) 142.1 kg (313 lb 4.4 oz) SpO2 97% BMI 43.69 kg/m?? General appearance: alert, in no distress, obese Head: atraumatic, Normocephalic, without obvious abnormality Neck: no JVD Lungs: clear to auscultation bilaterally Heart: normal rate, regular rhythm, normal S1, S2, no murmurs, rubs, clicks or gallops Abdomen: Soft, non-tender. Bowel sounds normal. No masses, no organomegaly. Extremities: nodular edema, Skin: nodular hyperpigmentation bilateral Neurologic: Grossly normal Musculoskeletal: no joint tenderness, deformity or swelling Data Review: Results for orders placed or performed during the hospital encounter of 04/20/25 (from the past 24 hours) SODIUM, RANDOM URINE Result Value Ref Range SODIUM, URINE 122 mmol/L UREA NITROGEN/CREATININE RATIO, URINE Result Value Ref Range UREA NITROGEN, URINE 156 mg/dL CREATININE, URINE 15.3 (L) 40.0 - 278.0 mg/dL UREA/CREAT RATIO, UR 10.2 mg/mg Creatinine URINALYSIS WITH REFLEX MICROSCOPIC Result Value Ref Range COLOR UA Colorless (A) Pale to Dark Yellow CLARITY UA Cloudy (A) Clear SPECIFIC GRAVITY UA 1.008 1.003 - 1.035 PH UA 6.0 5.0 - 8.0 LEUKOCYTE ESTERASE UA 3+ (A) Negative NITRITE UA Negative Negative PROTEIN UA 1+ (A) Negative GLUCOSE UA Negative Negative KETONES UA Negative Negative UROBILINOGEN UA <2.0 <2.0 mg/dL BILIRUBIN UA Negative Negative BLOOD UA 3+ (A) Negative WBC UA >100 (A) 0 - 2 /hpf RBC UA >100 (A) 0 - 2 /hpf BACTERIA UA 1+ (A) Negative /hpf HYALINE CAST 0-2 None Seen, 0-2 /lpf PROTEIN/CREATININE RATIO, URINE Result Value Ref Range PROTEIN CONCENTRATION 75 (H) 0 - 20 mg/dL CREATININE, URINE 15.3 (L) 40.0 - 278.0 mg/dL PROTEIN/CREAT RATIO, URINE 4.90 (H) 0.00 - 0.19 mg/mg Creatinine HEMOGLOBIN AND HEMATOCRIT Result Value Ref Range HEMOGLOBIN 9.5 (L) 14.0 - 18.0 g/dL HEMATOCRIT 31.4 (L) 41.0 - 53.0 % POTASSIUM LEVEL Result Value Ref Range POTASSIUM 3.8 3.5 - 5.1 mmol/L UNFRACTIONATED HEPARIN MONITORING Result Value Ref Range ANTI-XA UNFRAC HEP 0.13 See Interpretation IU/mL HEMOGLOBIN AND HEMATOCRIT Result Value Ref Range HEMOGLOBIN 8.1 (L) 14.0 - 18.0 g/dL HEMATOCRIT 27.3 (L) 41.0 - 53.0 % POC GLUCOSE Result Value Ref Range GLUCOSE POC 89 74 - 99 mg/dL SPECIMEN SOURCE, GLUCOSE POC Capillary UNFRACTIONATED HEPARIN MONITORING Result Value Ref Range ANTI-XA UNFRAC HEP 0.12 See Interpretation IU/mL HEMOGLOBIN AND HEMATOCRIT Result Value Ref Range HEMOGLOBIN 8.3 (L) 14.0 - 18.0 g/dL HEMATOCRIT 27.7 (L) 41.0 - 53.0 % CBC WITH DIFFERENTIAL Result Value Ref Range WBC 7.0 4.8 - 10.8 K/uL RBC 3.22 (L) 4.60 - 6.20 M/uL HEMOGLOBIN 8.4 (L) 14.0 - 18.0 g/dL HEMATOCRIT 28.1 (L) 41.0 - 53.0 % MCV 87.3 84.0 - 103.0 fL MCH 26.1 (L) 27.0 - 34.0 pg MCHC 29.9 (L) 30.0 - 35.0 g/dL PLATELETS 210 140 - 440 K/uL MPV 9.7 8.9 - 12.8 fL RDW 19.1 (H) 11.0 - 14.5 % RDW-STDEV 60.2 (H) 37.0 - 54.0 fL NEUTROPHILS 77 (H) 42 - 75 % LYMPHOCYTES 10 (L) 24 - 44 % MONOCYTES 8 2 - 10 % EOSINOPHILS 3 0 - 7 % BASOPHILS 1 0 - 1 % IMMATURE GRANULOCYTES 1 0 - 2 % NEUTROPHIL ABSOLUTE 5.38 2.00 - 8.00 K/uL LYMPHOCYTE ABSOLUTE 0.73 (L) 1.20 - 4.00 K/uL MONOCYTE ABSOLUTE 0.55 0.10 - 0.60 K/uL EOSINOPHIL ABSOLUTE 0.21 0.00 - 0.70 K/uL BASOPHILS ABSOLUTE 0.05 0.00 - 0.20 K/uL IMMATURE GRANULOCYTES ABSOLUTE 0.07 0.00 - 0.10 K/uL SMEAR REVIEWED: NN - No Action Needed BASIC METABOLIC PANEL Result Value Ref Range SODIUM 134 (L) 136 - 145 mmol/L POTASSIUM 3.6 3.5 - 5.1 mmol/L CHLORIDE 97 (L) 98 - 107 mmol/L CO2 19 (L) 22 - 29 mmol/L CALCIUM 9.8 8.8 - 10.2 mg/dL BUN 89 (H) 8 - 23 mg/dL CREATININE 2.33 (H) 0.67 - 1.17 mg/dL GLUCOSE 187 (H) 74 - 99 mg/dL GFR 30 (L) >=60 mL/min/1.73 sq meter ANION GAP 18 9 - 20 mmol/L MAGNESIUM LEVEL Result Value Ref Range MAGNESIUM 1.9 1.6 - 2.4 mg/dL HEMOGLOBIN AND HEMATOCRIT Result Value Ref Range HEMOGLOBIN 8.3 (L) 14.0 - 18.0 g/dL HEMATOCRIT 27.3 (L) 41.0 - 53.0 % UNFRACTIONATED HEPARIN MONITORING Result Value Ref Range ANTI-XA UNFRAC HEP 0.24 See Interpretation IU/mL ECHO TRANSESOPHAGEAL WITH CARDIOVERSION Result Value Ref Range EJECTION FRACTION EF: Renal US IMPRESSION: 1. Unremarkable right kidney. 2. Multiple left renal cysts. The largest is a simple appearing 6.8 cm cyst. 3. The gallbladder is incidentally noted to be abnormally enlarged and contains at least one small stone. 4. There is a nonspecific 2.2 cm hypoechoic nodule between the upper pole of the left kidney and the spleen that could be a small accessory spleen, adrenal nodule or abnormal lymph node. Assessment/Plan Acute kidney injury- secondary to dehydration, and possible obstructive uropathy. UOP hard to tell.Creatinine down to 2.33. Continue with IVFs. Holding diuretics. Starting on some IVFs. BP stable currently. Avoid nephrotoxins 2. Hematuria- no reports of obstruction. CBI this AM. Urology following [place] with clearer urine now. UOP unknown 3. Systolic HF- EF 30%. Does not appear to be decompensated, suspect some intravascular volume depletion. Holding diuretics. Started on some IVFs. 4. Hypokalemia- with prior diuresis. Replace k IV. Mag stable. K goal >4 with hx afib. NA EXPERT * Nahomi Oliveira RN - 04/23/2025 12:46 PM CST Cardiopulmonary Rehab completed CHF Education with patient. The patient was receptive to the education and verbalized understanding. No referral was sent to Cardiopulmonary Rehab Phase 2 due to: Patient is discharging to a Jail or [facility] Nursing facility (>60 days). Total Time Spent with the Patient: 8 minutes. Units Charged: 1 Learners: Patient Readiness: Acceptance Teaching Points Response Understanding Heart Failure Verbalizes Understanding Heart Failure Medication Management Importance of Taking as Prescribed Side Effects Preferred Pharmacy: [facility] #[id number] [place] [id number] [address] [facility] [address] [facility] [address] Verbalizes Understanding Diet and Nutrition Prescribed Diet Incorporating Healthy Eating Habits Reading and Understanding Nutrition Labels Managing Sodium Intake Managing Fluid Intake Verbalizes Understanding Symptom Management Self-Monitoring & Symptom Tracking Shortness of Breath Fatigue/Tiredness Swelling/Edema Weight Gain Blood Pressure Rapid or Irregular Heartbeat Mental Fatigue/Depression Verbalizes Understanding Physical Activity Exercise Rest Daily Goal(s) Verbalizes Understanding Smoking Cessation (if applicable) Tobacco Marijuana Vaping Quitting Resources Alcohol and Caffeine Consumption and Moderation Effects on Heart and Health Verbalizes Understanding Stress Management Awareness Reduction Strategies Verbalizes Understanding Sleep Sleep Schedule and Routine Verbalizes Understanding Physician/Provider Follow Up Appointment Importance of Keeping All Appointments Ongoing Monitoring and Early Identification of Issues Verbalizes Understanding Primary Care Provider Name: Media Clerk Name: No primary care provider on file. No care sales floor team member to display Post Hospitalization Follow Up Appointment With: Date/Time: Health Related Social Needs Impacting Care None Identified Consults and Referrals Identified: None Identified Comments: NA EXPERT * Tara Jiang MD - 04/23/2025 12:11 PM CST S: Pt has no complain of CP, SOB, Dizziness, No fever or Chill. No significant palpitation. Tolerating medication. Review of System: Consitutional: no fever or chills Neurologic: No significant headache, recent stroke, or seizure. Eyes: No double visual ENT: No earache, nasal bleeding or signigicant sore throat Cardiac: as HPI Pulmonary: no cough off blood, or significant change in sputum production Gastrointestinal: No significant and prolonged diarrhea or constipation Genitourinary: No hematuria, dysuria. Skin: no significant rash Psychiatric: No clear depression Musculoskeletal: no significant change in myalgias or arthralgias O: Blood pressure 118/68, pulse 71, temperature 97.3 ??F (36.3 ??C), temperature source Temporal, resp. rate 16, height 5' 11 (1.803 m), weight (!) 142.1 kg (313 lb 4.4 oz), SpO2 97%. Pt is alert and oriented x 3, no apparent distress, VSS, afibril Heart: RRR, no sig. Murmur Lung: decreased LS, with minimal crakles ABD: Non-tender, Soft and +BS Leg: chronic dermitis and edema Lab: Lab Results Component Value Date WBC 7.0 04/23/2025 HGB 8.3 (L) 04/23/2025 HCT 27.3 (L) 04/23/2025 PLT 210 04/23/2025 MCV 87.3 04/23/2025 Lab Results Component Value Date NA 134 (L) 04/23/2025 K 3.6 04/23/2025 CL 97 (L) 04/23/2025 CO2 19 (L) 04/23/2025 CA 9.8 04/23/2025 BUN 89 (H) 04/23/2025 CREAT 2.33 (H) 04/23/2025 GLUCOSE 187 (H) 04/23/2025 ANIONGAP 18 04/23/2025 No results found for: CPK , CKMB , TROPONIN , TROPONIINT , TROPINTR Current Facility-Administered Medications Medication Dose Route Frequency Provider Last Rate Last Admin [COMPLETED] heparin injection 3,100 Units 30 Units/kg (Adjusted) IV ONE time only Komal Crandall MD 3,100 Units at 04/23/25 0036 [COMPLETED] heparin injection 1,500 Units 15 Units/kg (Adjusted) IV ONE time only Komal Crandall MD 1,500 Units at 04/23/25 0652 [COMPLETED] benzocaine (HURRICAINE) 20 % spray Mouth/Throat intra-proc ONE time Aman Robles MD 0.5 [place] at 04/23/25 0844 fentaNYL (PF) (SUBLIMAZE) 50 mcg/mL injection 200 mcg 200 mcg IV intra-proc PRN Aman Robles MD 25 mcg at 04/23/25 0920 [COMPLETED] lidocaine 2% jelly 10 mL 10 mL See Admin Instructions intra-proc ONE time Aman Robles MD 6 mL at 04/23/25 0844 midazolam (VERSED) injection 10 mg 10 mg IV intra-proc PRN Aman Robles MD 1 mg at 04/23/25 0923 sodium chloride 0.9 % infusion IV continuous Aman Robles MD 40 mL/hr at 04/23/25 0853 New Bag at 04/23/25 0853 sodium chloride flush injection 10 mL 10 mL IV intra-proc PRN Aman Robles MD 10 mL at 04/23/25 0850 atropine injection 0.5 mg 0.5 mg IV intra-proc PRN Aman Robles MD ipratropium-albuteroL (DUONEB) 0.5 mg-3 mg(2.5 mg base)/3 mL inhalation solution 3 mL 3 mL Inhalation resp, every 4 hours PRN Komal Crandall MD [COMPLETED] potassium CHLORIDE 20 mEq/100 mL IVPB 20 mEq 20 mEq IV ONE time only Uvaldo Huber MD Stopped at 04/22/25 1436 lactated ringers infusion IV continuous Uvaldo Huber MD Stopped at 04/23/25 1214 [COMPLETED] heparin injection 3,100 Units 30 Units/kg (Adjusted) IV ONE time only Komal Crandall MD 3,100 Units at 04/22/25 1608 naloxone (NARCAN) 0.4 mg/mL injection 0.1-0.4 mg 0.1-0.4 mg IV see admin instructions Gregorio Rogers MD acetaminophen (TYLENOL) tablet 650 mg 650 mg Oral every 6 hours PRN Gregorio Rogers MD 650 mg at 04/21/252050 cefTRIAXone (ROCEPHIN) 2,000 mg in sodium chloride 0.9% 50 mL IVPB (MBP) 2,000 mg IV daily Gregorio Rogers MD Stopped at 04/23/25 1023 amiodarone in dextrose (ISO-OSM) (NEXTERONE) 360 mg/200 mL (1.8 mg/mL) IV infusion 0.5 mg/min IV continuous Gregorio Rogers MD 16.67 mL/hr at 04/23/25 0159 0.5 mg/min at 04/23/25 0159 heparin in 0.45% NaCl 25,000 unit/250 mL infusion 20 Units/kg/hr (Adjusted) IV titrate Komal Crandall MD 20.4 mL/hr at 04/23/25 0649 20 Units/kg/hr at 04/23/25 0649 polyethylene glycol (MIRALAX) packet 17 Gram 17 Gram Oral daily Maricruz Galvan MD 17 Gram at 04/23/25 1041 sennosides (SENOKOT) tablet 8.6 mg 8.6 mg Oral daily Maricruz Galvan MD 8.6 mg at 04/23/25 1040 [DISCONTINUED] heparin injection 6,100 Units 60 Units/kg (Adjusted) IV ONE time only Maricruz Galvan MD A/P 67 M, hx of HTN, hyperlipidemia, DM. Hx of [place], Hx of afib and V fib. Cardiogenic shock. LVEF 20s% and angio 2021 rodas no intervention needed. Here for afib/cm and cardiogenic shock. May have hematuria.Poor historian EKG at admission, afib LBBB and PVC. Troponin 139, 147 with Cr 2.66, Hg 8.9 CM, soft BP and high Cr limit HF meds. Afib, Coming in with amio which will be continued due to hx of V fib and afib and frequent pvc now.Continue heparin. FRED/DCCV 04/23/2025. Sinus now. Heparin change to eliquis when dc Amio po loading 400 bid for 1 week then daily Monitor urine output and Cr NA EXPERT * Karyn Walters PA-C - 04/23/2025 10:34 AM CST 04/23/2025 Urology Progress note Re: Hematuria/CBI - plan for cystoscopy/fulguration postponed due to unstable cardiac status. Subjective: Pt is without complaint - had cardioversion today. Objective: Continues on heparin drip CBI on slow drip - UOP clear yellow Current vital signs Blood pressure 107/62, pulse (!) 104, temperature 97.3 ??F (36.3 ??C), temperature source Temporal,resp. rate 19, height 5' 11 (1.803 m), weight (!) 142.1 kg (313 lb 4.4 oz), SpO2 95%. 24 hour BP and temperature range BP: (103-173)/(62-154) Temp (24hrs), Av.7 ??F (36.5 ??C), Min:97.3 ??F (36.3 ??C), Max:98 ??F (36.7 ??C) Input/Output 04/21 1900 - 04/23 0659 In: 3971.2 [I.V.:1721.2] Out: 9550 [Urine:9550] Physical Exam: Abdomen: abdomen is soft without significant tenderness Urine:CBI on slow drip, UOP clear yellow Labs: BMP: Recent Labs 04/20/25 1358 04/21/25 0439 04/22/25 0445 04/22/25 1430 04/23/25 0312 GLUCOSE 108* 192* 155* -- 187* BUN 97* 101* 102* -- 89* CREAT 2.89* 3.10* 3.14* -- 2.33* NA 134* 134* 136 -- 134* K 3.6 3.9 3.3* 3.8 3.6 CL 95* 96* 97* -- 97* CO2 21* 20* 20* -- 19* ANIONGAP 18 18 19 -- 18 MG -- 1.9 2.0 -- 1.9 estimated creatinine clearance is 43.8 mL/min (A) (by C-G formula based on SCr of 2.33 mg/dL (H)). CBC: Recent Labs 04/20/25 1052 04/20/25 1829 04/20/25 2321 04/21/25 0439 04/21/25 1249 04/21/25 1813 04/22/25 0001 04/22/25 0445 04/22/25 1430 04/22/25 2124 04/22/25 2322 04/23/25 0312 04/23/25 0611 WBC -- -- -- 9.5 -- -- -- 8.1 -- -- -- 7.0 -- HGB 8.9* 9.3* 9.0* 8.5* 8.2* 8.3* 8.0* 8.5* 9.5* 8.1* 8.3* 8.4* 8.3* HCT 29.7* 29.9* 29.2* 28.8* 27.2* 27.8* 26.3* 28.6* 31.4* 27.3* 27.7* 28.1* 27.3* PLT -- -- -- 227 -- -- -- 201 -- -- -- 210 -- MCV -- -- -- 88.6 -- -- -- 87.5 -- -- -- 87.3 -- Coagulation: Recent Labs 04/20/25 1358 APTT 48.9* Assessment: Principal Problem: Atrial fibrillation with rapid ventricular response (CMS/HCC) Active Problems: CHRIS (acute kidney injury) Hematuria HFrEF (heart failure with reduced ejection fraction) (CMS/HCC) Hyperparathyroidism Bilateral lower extremity edema Elevated troponin Plan: Clamped CBI this AM Restart if UOP anything more than clear pink or if numerous clots occur. No immediate plan for intervention today NPO at midnight, will reassess in am. Messaged Cardiology to see what plan is for fci anticoagulation He will minimum need OP f/u to complete hematuria workup. Karyn Walters PA-C 10:34 AM Cosigned by Dilcia Salmon MD at 04/27/2025 4:13 AM BANANA EXPERT NA EXPERT NA EXPERT * Aman Robles MD - 04/23/2025 8:31 AM CST Patient Name: Kristopher Leblanc : 02/28/1958 Have reviewed with the patient (and or family/designee) the nature and purpose of the procedure (Transesophageal Echocardiogram guided Electrical Cardioversion), reasonable alternative methods of treatment, the risks and benefits involved, difficulties that may be encountered, pain management, the p ossibility of complications, recovery time, and restrictions after the procedure. The greatest benefit or probable outcome for a transesophageal echocardiogram include accurate assessment of many parts of the heart (muscle, valves, chambers, holes, blood clots, tumor, infection etc) and aorta, to determine further treatment. Alternatives to transesophageal echocardiogram include echocardiogram performed from outside the chest, CT, MRI or cardiac catheterization. In addition to general risks of the procedure and anesthesia (refer to procedural consent form [id number]), specific risks of transesophageal echocardiogram discussed, including but not limited to mortality, major bleeding, esophageal perforation, heart failure, arrhythmia, tracheal intubation, laryngospasm, bronchospasm, dysphagia, minor pharyngeal bleeding, hoarseness, lip injury and dental injury. After completion of transesophageal echocardiogram, electrical cardioversion will be attempted immediately afterwards if deemed medically appropriate. The greatest benefit or probable outcome for cardioversion is to restore a normal heart rhythm. Alternatives to cardioversion include doing nothing or adjusting medications. In addition to general risks of the procedure and anesthesia, specific risks of cardioversion discussed, including but not limited to pain, inducing a different abnormal rhythm, mild burning of the skin (like a sunburn) or dislodging a blood clot from the heart which could cause a stroke or problems elsewhere in the body. Appropriate history and physical on chart? Yes I have reviewed the last H&P and examined the patient today and there are no changes. Risks, benefits and options of conscious sedation discussed with patient. Previous anesthesia experiences reviewed. Informed consent obtained? yes Physical exam: Heart: S1 and S2 normal Lungs: clear to auscultation, unlabored breathing. Airway: normal ASA Classification: 1. A normal healthy patient 2. A patient with mild systemic disease 3. A patient with severe systemic disease. Limits activity, but not incapacitating. 4. A patient with incapacitating systemic disease that is a constant threat to life. 5. A moribund patient, not expected to survive 24 hours with or without the procedure. Choose ASA Class: 3 NPO status per policy: yes Pre-induction reassessment Changes since pre-sedation assessment? No Aman Robles MD 04/23/2025 NA EXPERT * Stefano Espinoza, Physical Therapist - 04/22/2025 2:00 PM CST Attempted to see patient for PT evaluation. Patient/Family chose not to participate in therapy due to refusing needs of PT during his current acute stay at [facility] despite education on benefits of participation with therapy during acute stay. Patient was aggravated and unwilling to work withtherapy and will be discharged from PT this date. Patient educated to communicate to nursing if decision to refuse PT during stay changes . Thank you, Stefano Espinoza Physical Therapist NA EXPERT * Komal Crandall MD - 04/22/2025 11:56 AM CST Images from the original note were not included. Your life is our life's work [facility] Hospitalist/Hospital Medicine Progress Note LOS: 2 days Room/Bed: 4257/01 Patient name: Kristopher Leblanc Date of : 02/28/1958 HOSPITAL COURSE SUMMARY: Kristopher Leblanc is a 67 y.o. male with obesity, atrial fibrillation, HFrEF, and recent hospitalizations who was transferred to [facility] after hospitalization for 2 days at OSH for A fib RVR who developed hematuria with anticoagulation. Upon arrival he was on amiodarone drip, montejo catheter with bloody output. Cardiology and urology were consulted. 04/20: getting VASCULAR TECHNOLOGIST med list; continue amio, heparin trial ok with urology; CBI 04/21: Cr worse, nephrology consulted; cystoscopy this AM; TTE pending; possible FRED/DCCV tomorrow, continue amio 04/22 assumed patient care. Patient seen at bedside, reported feeling well. Heparin was resumed today after discussion with urology. Cardioversion could not be completed given he was not on anticoagulation and potassium was 3.3. Replacing potassium. Consultants: IP CONSULT TO CARDIOLOGY IP CONSULT TO UROLOGY IP CONSULT TO IV TEAM IP CONSULT TO NEPHROLOGY IP CONSULT TO CARDIAC REHAB SUBJECTIVE: Patient offers no complaints. Remaining as mentioned above. No acute events overnight ROS: History obtained from the patient Psychological: no Depression, no Suicide ideation/thoughts Constitutional: negative for fever, chills, negative for confusion, fatigue Pulmonary: negative for dyspnea, no cough Cardiovascular: negative for chest pain, no palpitations, no orthopnea GI: negative for nausea, vomiting, diarrhea and constipation, no abdominal pain Renal: no dysuria, no hematuria Musculoskeletal: no back pain, no joint pain, no calf swelling Neuro: negative for headache, no vision changes, no dizziness Skin: no skin rash, no redness OBJECTIVE: Temp (24hrs), Av.8 ??F (36.6 ??C), Min:97.5 ??F (36.4 ??C), Max:98.3 ??F (36.8 ??C) BP 95/73 Pulse 97 Temp 97.5 ??F (36.4 ??C) (Temporal) Resp 22 Ht 5' 11 (1.803 m) Wt (!) 142.1 kg (313 lb 4.4 oz) SpO2 98% BMI 43.69 kg/m?? Intake/Output Summary (Last 24 hours) at 04/22/2025 1156 Last data filed at 04/22/2025 0700 Gross per 24 hour Intake 4200 ml Output 3900 ml Net 300 ml Last documented weight: Weight: (!) 142.1 kg (313 lb 4.4 oz) (04/20/25 0319) EXAM: General: alert, in no distress Neurologic: Grossly normal HEENT: atraumatic, Normocephalic, without obvious abnormality Lungs: clear to auscultation bilaterally, normal respiratory effort Heart: tachycardic, irregular rhythm Abdomen: obese, soft, nontender Extremities: BLE edema Skin: negative LABORATORY: Recent Labs 04/20/25 0229 04/20/25 1052 04/20/25 1829 04/20/25 2321 04/21/25 0439 04/21/25 1249 04/21/25 1813 04/22/25 0001 04/22/25 0445 WBC 9.1 -- -- -- 9.5 -- -- -- 8.1 HGB 8.9* 8.9* 9.3* 9.0* 8.5* 8.2* 8.3* 8.0* 8.5* HCT 29.0* 29.7* 29.9* 29.2* 28.8* 27.2* 27.8* 26.3* 28.6* PLT 214 -- -- -- 227 -- -- -- 201 Recent Labs 04/20/2522804/20/25 1358 04/21/25 0439 04/22/25 0445 NA 133* 134* 134* 136 K 3.2* 3.6 3.9 3.3* CL 95* 95* 96* 97* CO2 22 21* 20* 20* CA 10.5* 10.2 10.3* 10.2 BUN 97* 97* 101* 102* CREAT 2.66* 2.89* 3.10* 3.14* GLUCOSE 103* 108* 192* 155* Recent Labs 04/20/25228 TOTALPROTEIN 7.0 ALBUMIN 3.6 BILITOTAL 0.5 ALKPHOS 51 AST 10 ALT <5 No results for input(s): INR , PT in the last 72 hours. Invalid input(s): PTT Recent Labs 04/20/2522804/20/25 0709 BASETROP 139* -- 6HRTROP -- 147* Diagnostic testing reviewed by me: Medications were reviewed by me. Current Facility-Administered Medications: [COMPLETED] potassium CHLORIDE (KLOR-CON) SR tablet 40 mEq, 40 mEq, Oral, ONE time only, Komal Crandall MD, 40 mEq at 04/22/25 0917 [COMPLETED] perflutren lipid microspheres (DEFINITY) 1.3 mL in sodium chloride 0.9% 10 mL injection, 0-10 mL, IV, intra-proc ONE time, Carlos Brownlee MD, 3 mL at 04/22/25 1015 naloxone (NARCAN) 0.4 mg/mL injection 0.1-0.4 mg, 0.1-0.4 mg, IV, see admin instructions, Gregorio Rogers MD acetaminophen (TYLENOL) tablet 650 mg, 650 mg, Oral, every 6 hours PRN, Gregorio Rogers MD, 650 mg at 04/21/252050 cefTRIAXone (ROCEPHIN) 2,000 mg in sodium chloride 0.9% 50 mL IVPB (MBP), 2,000 mg, IV, daily, Gregorio Rogers MD, Stopped at 04/22/25 0932 amiodarone in dextrose (ISO-OSM) (NEXTERONE) 360 mg/200 mL (1.8 mg/mL) IV infusion, 0.5 mg/min, IV,continuous, Gregorio Rogers MD, Last Rate: 16.67 mL/hr at 04/22/25 0120, 0.5 mg/min at 04/22/25 0120 heparin injection 6,100 Units, 60 Units/kg (Adjusted), IV, ONE time only, Maricruz Galvan MD heparin in 0.45% NaCl 25,000 unit/250 mL infusion, 15 Units/kg/hr (Adjusted), IV, titrate, Maricruz aGlvan MD, Last Rate: 15.3 mL/hr at 04/22/25 0922, 15 Units/kg/hr at 04/22/25 0922 polyethylene glycol (MIRALAX) packet 17 Gram, 17 Gram, Oral, daily, Maricruz Galvan MD, 17 Gram at 04/22/25 0906 sennosides (SENOKOT) tablet 8.6 mg, 8.6 mg, Oral, daily, Maricruz Galvan MD, 8.6 mg at 04/22/25 0903 Primary discharge diagnosis: Atrial fibrillation with rapid ventricular response (CMS/HCC) Other active medical issues also addressed during this admission: Active Hospital Problems Diagnosis Hyperparathyroidism Bilateral lower extremity edema Elevated troponin Atrial fibrillation with rapid ventricular response (CMS/HCC) CHRIS (acute kidney injury) Hematuria HFrEF (heart failure with reduced ejection fraction) (CMS/HCC) Resolved Hospital Problems No resolved problems to display. ASSESSMENT AND PLAN: Atrial fibrillation with RVR HFrEF Elevated troponin Denies chest pain/SOB [facility] 2021 reportedly without concern EKG: LBBB, reportedly baseline Trop 139 - 147 - 152 Cardiology consulted on admission Continue amio drip Resume heparin FRED DCCV might be completed later today if potassium normalizes TTE pending Hematuria Reported once anticoagulation was started Bleeding resumed prior to resuming heparin Monitor Hgb Urology consulted CBI Urology still may take pt for cystoscopy today per Dr Derek WATTERS at OSH (see media): bilateral renal cysts Cr 3.5 - 2.66 - 3.1 Thought to be overdiureses in the transfer paperwork Unable to assess urine lytes with CBI Nephrology consulted 04/[address] at OSH (see media): diffuse bladder wall thickening suspicious for cystitis UA deferred as CBI ongoing Ceftriaxone (04/20-) Constipation Seen on CT Bowel regimen with senna/miralax BLE edema Venous doppler pending Hyperparathyroidism Elevated calcium PTH 151 Vit D 36 Normocytic anemia Anemia of chronic disease Ferritin 570 Fe 28, % sat 14 Transfuse if < 8 DVT prophylaxis: DVT Pharmacologic Prophylaxis: heparin in 0.45% NaCl 25,000 unit/250 mL infusion [[id number]] - on hold Code status: Full Code Outpatient follow up: PCP Cardiology Urology Anticipated Disposition Location: [facility] pending Timeframe: 04/24/2025 Criteria: clinically stable Patient's understanding of illness: ok MDM complexity: [] Mild [] Moderate [x] High Komal Crandall MD 04/22/2025, 11:56 AM NA EXPERT * Kenisha Frias, Occupational Therapist - 04/22/2025 11:03 AM CST [facility]. Acute Occupational Therapy Evaluation 04/22/2025 Room: [address] [place] [address] Name: Kristopher Leblanc Age: 67 y.o. Patient Class: Inpatient Date of : 02/28/1958 Insurance: Payor: [employer] MEDICARE ADVANTAGE / Plan: [facility] PPO [id number] / Product Type: PPO / Prior to OT session thorough chart review completed, including prior OT notes as applicable. Consent to evaluate provided by patient and nurse Date of admission: 04/20/2025 SUBJECTIVE Occupational Profile Information provided by: patient, chart Prior Level of Function ADLs: assistance needed for upper body dressing, lower body dressing, bathing, grooming, toileting,and feeding IADLs: assistance needed for meal preparation, home management, laundry, cleaning, managing finances, managing medications, and grocery shopping Patient does not drive Functional mobility: unclear plof- pt reports that in his facility he stayed in bed and things werebrought to him. Falls: unknown Home Information Employment/daily routine: Pt living in nursing facility prior to this admission Self-care assist available at home: staff at nursing facility in [place] Home environment: assisted Durable medical equipment already in home: Walkers: standard Shower chair Grab bars Slide board Additional Information Patient/family statement/goal(s): complete grooming tasks Comments: Patient pleasant and agreeable to therapy Pain: Refer to flowsheet for documentation of pain and interventions. OBJECTIVE Cognition Level of alertness: alert Orientation: x4 WNL Command following: fair with slow processing Safety awareness: fair; limited by slow processing and decreased attention Memory: Not formally assessed, can recall recent events however when asked why he moved to the halfway a few months ago he states something happened but cannot recall details. Vision: wears glasses at baseline UE Function Right-hand dominant UE Assessment Right Left ROM Not formally assessed; adequate for functional tasks Not formally assessed; adequate for functional tasks Strength Not formally manual muscle tested; strength is adequate for functional tasks Not formally manual muscle tested; strength is adequate for functional tasks All additional UE assessments (including tone, coordination, sensation, and edema) not indicated ordeemed WFL. Lower extremity comments: See PT note for additional details. Occupational Performance Activities of Daily Living Feeding: independent for [id number]-ov-[id number] excursion during oral care Grooming: minimal assistance in bed for setup/cleanup to perform oral care, wash face, maximal assistance to apply deodorant Upper extremity dressing: NT; anticipate moderate assistance Lower extremity dressing: dependent assistance for donning BLE footwear Toileting: dependent assistance with montejo catheter Toilet transfer: NT; anticipate dependent assistance All tasks not tested with anticipated assist levels are based on observed tasks and movement patterns. Functional Mobility Functional mobility deferred at this time due to low level of activity tolerance, pt desire to perform ADLs only this session. [facility] Daily Activity How much help from another person does the patient currently need? Score 1. Putting on and taking off regular lower body clothing? 1 - Total assist or cannot do at all 2. Bathing (including washing, rinsing, drying)? 2 - A lot (max to mod assist) 3. Toileting, which includes using toilet, bedpan or urinal? 1 - Total assist or cannot do at all 4. Putting on and taking off regular upper body clothing? 2 - A lot (max to mod assist) 5. Taking care of personal grooming such as brushing teeth? 3 - A little (supervision to min assist) 6. Eating meals? 4 - None (independent) Total score 13/24 0-19 indicates likely facility discharge 19-24 indicates likely community discharge *Scores determined based on patient report, observation or professional expertise* Vitals Current O2 requirement: 1 L/min via nasal cannula Vital signs stable throughout. On continuous monitoring throughout session. Precautions Patient precautions: fall Patient bracing: none Weight bearing: no restrictions ASSESSMENT & PLAN Evaluation Details rKistopher Leblanc is a 67 y.o. male referred for OT following admission for atrial fibrillation with rapid ventricular response. Additional pertinent diagnoses and past medical history related to this hospital stay are present in physician H&P and physician daily notes. OT evaluation: Moderate complexity Assessment Patient is currently functioning significantly below his prior level of function. Patient presents with acute functional deficits including: Functional balance Decreased functional strength Decreased endurance Medical complexity These deficits impact patient ability to complete: Functional mobility Bathing Toileting Dressing Personal hygiene/grooming Home management Health management Meal preparation Community access Patient would benefit from continued skilled OT services in order to increase occupational performance through modification and remediation approaches such as ADL training, balance training, endurance training, strength training, functional transfer training, home safety education, patient education, energy conservation training, and equipment training Plan During acute hospitalization, recommend medium frequency treatment (3-5 times/week). Current plan of care to continue until goals met or patient discharges from facility Anticipate ongoing OT treatment sessions with specific focus on EOB or in bed ADLs, functional mobility, strength, activity tolerance, energy conservation education Recommendations Based on OT assessment of patient's ability to complete self care tasks, AM-PAC Daily Activity Score, potential for improvement, available home support, participation in therapeutic intervention, andtolerance for activity, anticipated discharge disposition, once medically ready: group home fac ility (04/22/25 1103). Rationale: Patient needs daily (weekday) skilled OT services. Anticipate tolerance is limited for intensive or adapted intensive rehab program, extended recovery time needed, and patient may require halfway after recovery from current condition. * The final discharge location is determined through physician, case management, and patient/caregiver input along with insurance authorization of skilled services when appropriate. Plan of care and discharge recommendations shared with patient and PT OT recommended DME and AE upon discharge: No new DME recommended (04/22/25 110) No new additional adaptive equipment necessary (04/22/251102) Education provided to patient regarding OT recommendations and plan of care, purpose of OT evaluation. Education response: verbalized understanding Nursing Staff Mobility Recommendations Recommended daily activity during admission: dependent lift Disposition At start of session, patient found lying in bed At end of session, patient left in bed Further treatment notes and therapeutic goals can be found in Care Plan Notes. If the patient discharges from facility before another therapy visit, this shall serve as therapy discharge summary. Thank you for this referral, Kenisha Frias, Occupational Therapist NA EXPERT * Leo Ponce RT - 04/22/2025 10:27 AM CST Images from the original note were not included. Patient educated regarding Definity ultrasound contrast and verbalizes positive understanding. Definity administered per policy. Patient free from complaints throughout procedure. [facility] PHYSICIAN ORDERS # [id number] [id number] ECHOCARDIOGRAPHY PROTOCOL FOR USE OF ECHOCARDIOGRAPHIC IMAGE ENHANCING AGENT (DEFINITY) This protocol is to be used during an Echocardiogram when a patient is technically difficult to image (as defined by [place] Society of Echocardiography guidelines - the inability to detect two or more contiguous segments in any three of the apical views) or when left ventricular thrombus is suspected. Verify consent to treat has been signed and explain the procedure to the patient. Confirm that the patient does not have a known allergy or hypersensitivity to Definity Perflutren Lipid Microspheres or its components such as polyethylene glycol (PEG). Patient indicated he was not allergic and wanted to have the contrast. Enter order for Definity into Electronic Health Record ???per protocol?? (will require interpreting rn assessment to sign). Trained Echo Technologists may proceed with use of echocardiographic image enhancing agent. [facility] currently utilizes Definity (perflutren lipid microspheres). Administer Definity per Echocardiography Policy and Procedure #251 Administration of Ultrasound Contrast as follows: 1.3 mL of activated Definity (perflutren lipid microspheres) diluted with 8.7 mL of preservative-free saline in a 10 mL syringe Initial injection of up to 3mL administered slowly (subsequent injection of 1 to 2 mL as needed) References: Definity Prescribing Information package insert; Revised March 2011 http://www.[employer].com/pdf/Definity%20US%20PI%54404036-8715% .pdf ASE Consensus Statement - [place] Society of Echocardiography Consensus Statement on the Clinical Applications of Ultrasonic Contrast Agents in Echocardiography; NATHANAEL, April 2008 http://www.asecho.org/files/public/ContrastConsensusStatement.pdf www.[employer]/how-administration.html Approved by: Medication Management Committee Initiated: 10/13/2011 Revised: 10/20/2023 Expires: NA EXPERT * Stefano Espinoza, Physical Therapist - 04/22/2025 8:00 AM CST Attempted to see patient for PT evaluation. Patient unavailable for therapy session due to cytoscopy this AM. RN requested PT come evaluate patient this PM. Will continue with attempts for evaluation/established plan of care. Thank you, Stefano Espinoza, Physical Therapist NA EXPERT * Tara Jiang MD - 04/22/2025 7:20 AM CST S: Pt has no complain of CP, SOB, Dizziness, No fever or Chill. No significant palpitation. Tolerating medication. Review of System: Consitutional: no fever or chills Neurologic: No significant headache, recent stroke, or seizure. Eyes: No double visual ENT: No earache, nasal bleeding or signigicant sore throat Cardiac: as HPI Pulmonary: no cough off blood, or significant change in sputum production Gastrointestinal: No significant and prolonged diarrhea or constipation Genitourinary: No hematuria, dysuria. Skin: no significant rash Psychiatric: No clear depression Musculoskeletal: no significant change in myalgias or arthralgias O: Blood pressure 102/51, pulse (!) 109, temperature 98.3 ??F (36.8 ??C), temperature source Temporal, resp. rate 18, height 5' 11 (1.803 m), weight (!) 142.1 kg (313 lb 4.4 oz), SpO2 97%. Pt is alert and oriented x 3, no apparent distress, VSS, afibril Heart: irregular, no sig. Murmur Lung: CTA, with mild crakles ABD: Non-tender, Soft and +BS Leg: Chronic edema/dermitits Lab: Lab Results Component Value Date WBC 8.1 04/22/2025 HGB 8.5 (L) 04/22/2025 HCT 28.6 (L) 04/22/2025 PLT 201 04/22/2025 MCV 87.5 04/22/2025 Lab Results Component Value Date NA 136 04/22/2025 K 3.3 (L) 04/22/2025 CL 97 (L) 04/22/2025 CO2 20 (L) 04/22/2025 CA 10.2 04/22/2025 BUN 102 (H) 04/22/2025 CREAT 3.14 (H) 04/22/2025 GLUCOSE 155 (H) 04/22/2025 ANIONGAP 19 04/22/2025 No results found for: CPK , CKMB , TROPONIN , TROPONIINT , TROPINTR Current Facility-Administered Medications Medication Dose Route Frequency Provider Last Rate Last Admin naloxone (NARCAN) 0.4 mg/mL injection 0.1-0.4 mg 0.1-0.4 mg IV see admin instructions Gregorio Rogers MD acetaminophen (TYLENOL) tablet 650 mg 650 mg Oral every 6 hours PRN Gregorio Rogers MD 650 mg at 04/21/252050 cefTRIAXone (ROCEPHIN) 2,000 mg in sodium chloride 0.9% 50 mL IVPB (MBP) 2,000 mg IV daily Gregorio Rogers MD Stopped at 04/21/25 1002 amiodarone in dextrose (ISO-OSM) (NEXTERONE) 360 mg/200 mL (1.8 mg/mL) IV infusion 0.5 mg/min IV continuous Gregorio Rogers MD 16.67 mL/hr at 04/22/25 0120 0.5 mg/min at 04/22/25 0120 heparin injection 6,100 Units 60 Units/kg (Adjusted) IV ONE time only Maricruz Galvan MD heparin in 0.45% NaCl 25,000 unit/250 mL infusion 15 Units/kg/hr (Adjusted) IV titrate Maricruz Galvan MD polyethylene glycol (MIRALAX) packet 17 Gram 17 Gram Oral daily Maricruz Galvan MD 17 Gram at 04/20/25 1648 sennosides (SENOKOT) tablet 8.6 mg 8.6 mg Oral daily Maricruz Galvan MD 8.6 mg at 04/20/25 1648 A/P 67 M, hx of HTN, hyperlipidemia, DM. Hx of [place], Hx of afib and V fib. Cardiogenic shock. LVEF 20s% and angio 2021 rodas no intervention needed. Here for afib/cm and cardiogenic shock. May have hematuria.Poor historian EKG at admission, afib LBBB and PVC. Troponin 139, 147 with Cr 2.66, Hg 8.9 CM, soft BP and high Cr limit HF meds. Afib, Coming in with amio which will be continued due to hx of V fib and afib and frequent pvc now.Plan on FRED/DCCV on Tuesday. Continue heparin Heparin amio Monitor urine output and Cr FRED/DCCV on Tuesday NA EXPERT * Pili Miller RN - 04/21/2025 6:45 PM CST Irrigation intake is estimated. I was notified by the patient that the CBI bags were spiked by the provider so we could not clamp one side and accurately begin measurement of irrigation intake. Discussed with night nurse, once she spikes new bags we can begin more accurate I and O's. NA EXPERT * Rishabh Reed MD - 04/21/2025 3:02 PM CST Urology Progress Note - 04/21/2025 SUBJECTIVE: no c/o OBJECTIVE: BP 96/59 Pulse 86 Temp 97.4 ??F (36.3 ??C) (Temporal) Resp 23 Ht 5' 11 (1.803 m) Wt (!) 142.1 kg (313 lb 4.4 oz) SpO2 98% BMI 43.69 kg/m?? Urine clear with cbi off Lab Results Component Value Date WBC 9.5 04/21/2025 HGB 8.2 (L) 04/21/2025 HCT 27.2 (L) 04/21/2025 PLT 227 04/21/2025 Lab Results Component Value Date NA 134 (L) 04/21/2025 K 3.9 04/21/2025 CL 96 (L) 04/21/2025 CO2 20 (L) 04/21/2025 CA 10.3 (H) 04/21/2025 BUN 101 (H) 04/21/2025 CREAT 3.10 (H) 04/21/2025 GLUCOSE 192 (H) 04/21/2025 TOTALPROTEIN 7.0 04/20/2025 ALBUMIN 3.6 04/20/2025 BILITOTAL 0.5 04/20/2025 ALKPHOS 51 04/20/2025 AST 10 04/20/2025 ALT <5 04/20/2025 ANIONGAP 18 04/21/2025 ASSESSMENT: Principal Problem: Atrial fibrillation with rapid ventricular response (CMS/HCC) Active Problems: CHRIS (acute kidney injury) Hematuria HFrEF (heart failure with reduced ejection fraction) (CMS/[facility]) Hyperparathyroidism Bilateral lower extremity edema Elevated troponin PLAN: OR unable to do case until much later Will plan cystoscopy tomorrow Pt updated Rishabh Reed MD NA EXPERT * Maricruz Galvan MD - 04/21/2025 8:10 AM CST Images from the original note were not included. Your life is our life's work [facility] Hospitalist/Hospital Medicine Progress Note LOS: 1 day Room/Bed: 1547/01 Patient name: Kristopher Leblanc Date of : 02/28/1958 HOSPITAL COURSE SUMMARY: Kristopher Leblanc is a 67 y.o. male with obesity, atrial fibrillation, HFrEF, and recent hospitalizations who was transferred to [facility] after hospitalization for 2 days at OSH for A fib RVR who developed hematuria with anticoagulation. Upon arrival he was on amiodarone drip, montejo catheter with bloody output. Cardiology and urology were consulted. 04/20: getting VASCULAR TECHNOLOGIST med list; continue amio, heparin trial ok with urology; CBI 04/21: Cr worse, nephrology consulted; cystoscopy this AM; TTE pending; possible FRED/DCCV tomorrow, continue amio Consultants: IP CONSULT TO CARDIOLOGY IP CONSULT TO UROLOGY IP CONSULT TO IV TEAM IP CONSULT TO NEPHROLOGY SUBJECTIVE: NPO for cystoscopy. No complaints, denies chest pain. ROS: History obtained from the patient Psychological: no Depression, no Suicide ideation/thoughts Constitutional: negative for fever, chills, negative for confusion, fatigue Pulmonary: negative for dyspnea, no cough Cardiovascular: negative for chest pain, no palpitations, no orthopnea GI: negative for nausea, vomiting, diarrhea and constipation, no abdominal pain Renal: no dysuria, no hematuria Musculoskeletal: no back pain, no joint pain, no calf swelling Neuro: negative for headache, no vision changes, no dizziness Skin: no skin rash, no redness OBJECTIVE: Temp (24hrs), Av.5 ??F (36.4 ??C), Min:97.2 ??F (36.2 ??C), Max:97.8 ??F (36.6 ??C) BP (!) 109/98 (BP Location: Left arm, Patient Position (BP): Supine) Pulse (!) 187 Temp 97.6 ??F (36.4 ??C) (Temporal) Resp 19 Ht 5' 11 (1.803 m) Wt (!) 142.1 kg (313 lb 4.4 oz) SpO2 96% BMI 43.69 kg/m?? Intake/Output Summary (Last 24 hours) at 04/21/2025 0810 Last data filed at 04/20/2025 1300 Gross per 24 hour Intake 100 ml Output -- Net 100 ml Last documented weight: Weight: (!) 142.1 kg (313 lb 4.4 oz) (04/20/25 0319) EXAM: General: alert, in no distress Neurologic: Grossly normal HEENT: atraumatic, Normocephalic, without obvious abnormality Lungs: clear to auscultation bilaterally, normal respiratory effort Heart: tachycardic, irregular rhythm Abdomen: obese, soft, nontender Extremities: BLE edema Skin: negative LABORATORY: Recent Labs 04/20/2522804/20/25 1052 04/20/25 1829 04/20/25 2321 04/21/25 0439 WBC 9.1 -- -- -- 9.5 HGB 8.9* 8.9* 9.3* 9.0* 8.5* HCT 29.0* 29.7* 29.9* 29.2* 28.8* PLT 214 -- -- -- 227 Recent Labs 04/20/25 02204/20/25 1358 04/21/25 0439 NA 133* 134* 134* K 3.2* 3.6 3.9 CL 95* 95* 96* CO2 22 21* 20* CA 10.5* 10.2 10.3* BUN 97* 97* 101* CREAT 2.66* 2.89* 3.10* GLUCOSE 103* 108* 192* Recent Labs 04/20/25228 TOTALPROTEIN 7.0 ALBUMIN 3.6 BILITOTAL 0.5 ALKPHOS 51 AST 10 ALT <5 No results for input(s): INR , PT in the last 72 hours. Invalid input(s): PTT Recent Labs 04/20/2522804/20/25 0709 BASETROP 139* -- 6HRTROP -- 147* Diagnostic testing reviewed by me: Medications were reviewed by me. Current Facility-Administered Medications: naloxone (NARCAN) 0.4 mg/mL injection 0.1-0.4 mg, 0.1-0.4 mg, IV, see admin instructions, Gregorio Rogers MD acetaminophen (TYLENOL) tablet 650 mg, 650 mg, Oral, every 6 hours PRN, Gregorio Rogers MD, 650 mg at 04/20/252221 cefTRIAXone (ROCEPHIN) 2,000 mg in sodium chloride 0.9% 50 mL IVPB (MBP), 2,000 mg, IV, daily, Gregorio Rogers MD [COMPLETED] cefTRIAXone (ROCEPHIN) 2,000 mg in sodium chloride 0.9% 50 mL IVPB (MBP), 2,000 mg, IV,ONE time only, Gregorio Rogers MD, Stopped at 04/20/25 1237 amiodarone in dextrose (ISO-OSM) (NEXTERONE) 360 mg/200 mL (1.8 mg/mL) IV infusion, 0.5 mg/min, IV,continuous, Gregorio Rogers MD, Last Rate: 16.67 mL/hr at 04/21/25 0025, 0.5 mg/min at 04/21/25 0025 [COMPLETED] potassium CHLORIDE (KLOR-CON) SR tablet 40 mEq, 40 mEq, Oral, every 4 hours, Maricruz Galvan MD, 40 mEq at 04/20/25 1257 heparin injection 6,100 Units, 60 Units/kg (Adjusted), IV, ONE time only, Maricruz Galvan MD heparin in 0.45% NaCl 25,000 unit/250 mL infusion, 15 Units/kg/hr (Adjusted), IV, titrate, Maricruz Galvan MD polyethylene glycol (MIRALAX) packet 17 Gram, 17 Gram, Oral, daily, Maricruz Galvan MD, 17 Gram at 04/20/25 1648 sennosides (SENOKOT) tablet 8.6 mg, 8.6 mg, Oral, daily, Maricruz Galvan MD, 8.6 mg at 04/20/25 1648 Primary discharge diagnosis: Atrial fibrillation with rapid ventricular response (CMS/HCC) Other active medical issues also addressed during this admission: Active Hospital Problems Diagnosis Atrial fibrillation with rapid ventricular response (CMS/HCC) CHRIS (acute kidney injury) Hematuria HFrEF (heart failure with reduced ejection fraction) (CMS/HCC) Resolved Hospital Problems No resolved problems to display. ASSESSMENT AND PLAN: Atrial fibrillation with RVR HFrEF Elevated troponin Denies chest pain/SOB [facility] 2021 reportedly without concern EKG: LBBB, reportedly baseline Trop 139 - 147 - 152 Cardiology consulted on admission Continue amio drip Hold heparin Tentatively planning FRED/DCCV Tuesday TTE pending Hematuria Reported once anticoagulation was started Bleeding resumed prior to resuming heparin Monitor Hgb Urology consulted CBI NPO BHASKAR for cystoscopy 04/21 CHRIS JANENE at OSH (see media): bilateral renal cysts Cr 3.5 - 2.66 - 3.1 Thought to be overdiureses in the transfer paperwork Unable to assess urine lytes with CBI Nephrology consulted 04/[address] at OSH (see media): diffuse bladder wall thickening suspicious for cystitis UA deferred as CBI ongoing Ceftriaxone (04/20-) Constipation Seen on CT Bowel regimen with senna/miralax BLE edema Venous doppler pending Hyperparathyroidism Elevated calcium PTH 151 Vit D 36 Normocytic anemia Anemia of chronic disease Ferritin 570 Fe 28, % sat 14 Transfuse if < 8 DVT prophylaxis: DVT Pharmacologic Prophylaxis: heparin in 0.45% NaCl 25,000 unit/250 mL infusion [[id number]] - on hold Code status: Full Code Outpatient follow up: PCP Cardiology Urology Anticipated Disposition Location: [facility] pending Timeframe: 04/22/2025 Criteria: clinically stable Patient's understanding of illness: ok MDM complexity: [] Mild [] Moderate [x] High Maricruz Galvan MD 04/21/2025, 8:10 AM NA EXPERT * Aga Green NP - 04/21/2025 7:54 AM CST Cardiology Progress Note Patient: Kristopher Leblanc / 67 y.o. / male : 02/28/1958 Today's Date: 04/21/2025 Collaborating Physician: Dr. Robles Chief complaint: Afib RVR SUBJECTIVE: Mr. Leblanc denies any exertional chest pain, dyspnea, palpitations, syncope, orthopnea, edema, or paroxysmal nocturnal dyspnea. Current medicines reviewed. Chart reviewed. Recent Cardiac Testing: Echo pending OBJECTIVE: BP (!) 109/98 (BP Location: Left arm, Patient Position (BP): Supine) Pulse (!) 187 Temp 97.6 ??F (36.4 ??C) (Temporal) Resp 19 Ht 5' 11 (1.803 m) Wt (!) 142.1 kg (313 lb 4.4 oz) SpO2 96% BMI 43.69 kg/m?? The range of BP in the last 24 hours is:BP: (86-109)/(59-98) Intake/Output Summary (Last 24 hours) at 04/21/2025 6454 Last data filed at 04/20/2025 1300 Gross per 24 hour Intake 100 ml Output -- Net 100 ml General appearance: appears well, no acute distress Neck: no jugular venous distension Lungs: clear to auscultation bilaterally Heart: S1 and S2 normal Abdomen: soft and non-tender. Extremities: Chronic discoloration/changes to bilateral lower extremities noted Data Review: Laboratory & imaging data reviewed CBC: Recent Labs 04/20/25 0229 04/20/25 1052 04/20/25 1829 04/20/25 2321 04/21/25 0439 WBC 9.1 -- -- -- 9.5 HGB 8.9* 8.9* 9.3* 9.0* 8.5* PLT 214 -- -- -- 227 BMP: Recent Labs 04/20/2522804/20/25 1358 04/21/25 0439 GLUCOSE 103* 108* 192* BUN 97* 97* 101* CREAT 2.66* 2.89* 3.10* NA 133* 134* 134* K 3.2* 3.6 3.9 CO2 22 21* 20* MG 1.9 -- 1.9 Cardiac monitoring: AF, rate 105, no new arrhythmia. ASSESSMENT: 67 M, hx of HTN, hyperlipidemia, DM. Hx of [place], Hx of afib and V fib. Cardiogenic shock. LVEF 20s% and angio 2021 rodas no intervention needed. Here for afib/cm and cardiogenic shock. Having hematuria. PLAN: CM, soft BP and high Cr limit HF meds. Consider CCU if Cr or urine output decrease. Afib, Coming in with amio which will be continued due to hx of V fib and afib and frequent pvc now.Plan on FRED/DCCV on Tuesday. Restart heparin when urology clear him. Echo pending Heparin when clear from urology, plans for cystoscopy today vs tomorrow Continue IV amio for history of VT and rate control of afib Monitor urine output and Cr FRED/DCCV on Tuesday if cleared from urology to go back on anticoagulation [id number] Moderate-High Risk 3 Total Score 1 Hypertension Hx 1 Heart Failure Hx 1 Age Aga Green MSN, ATHLETIC MONITOR, DRYING AND WINDING SUPERVISOR-C Cardiology In collaboration with Dr. Aman Robles Cosigned by Aman Robles MD at 04/21/2025 11:55 AM BANANA EXPERT NA EXPERT NA EXPERT NA EXPERT NA EXPERT * Nelida Paez RN - 04/20/2025 4:58 PM CST Patient refused nurse to take a picture of his coccyx and pressure areas. NA EXPERT * Rafaela Ortega PHARMACIST - 04/20/2025 2:14 PM CST [facility] Adult Heparin Anti-Xa Monitoring Protocol [facility] ORDERS ARE ENTERED ???PER PROTOCOL?? Nursing Orders: Heparin must be hung as primary IV on dedicated IV site, unless discussed with physician and exception is authorized Obtain an actual weight, not stated weight, for pharmacy verification Do not give IM injections unless credentialed prescriber is alerted and chooses to proceed. Exception: Patient may receive vaccinations without contacting provider. RN to hold pressure to site post administration for 2 minutes Call credentialed prescriber for any evidence of hematoma, decrease in hemoglobin of 2 gram/dL or more, or with any acute change in mental status When programming the smart pump, refer to weight in eMAR order (this may not correlate with patient's current weight) Verify weight in eMAR order matches weight in smartpump Enter actual volume infused into flowsheet directly from smart pump upon clearing the pump volume Laboratory Orders: Baseline: Unfractionated heparin monitoring (Anti-Xa), PTT, and CBC without differential if not obtained in the last 72 hours before starting IV Heparin Infusion monitoring: Timed Anti-Xa every 6 hours after the initiation of infusion, change in rate or bolus until 2 consecutive Anti-Xa are in therapeutic range PTT monitoring should be used instead of Anti-xa monitoring for the following: Facility only has PTT lab monitoring capabilities Patients who have received a Xa inhibitor Direct Oral Anticoagulant (DOAC) medication (rivaroxaban,apixaban, edoxaban), therapeutic Enoxaparin, or Fondaparinux within the last 48 hours Daily once stable: Anti-Xa daily while on heparin once stable Minimum every 3 days: CBC without differential drawn at minimum of every 3 days while on heparin Medication Orders: Discontinue ALL other orders for subcutaneous, oral or IV anticoagulants, for example but not limited to: enoxaparin (LOVENOX), or fondaparinux (ARIXTRA) or oral anticoagulants dabigatran (PRADAXA), apixaban (ELIQUIS), edoxaban (SAVAYSA) or rivaroxaban (XARELTO). This protocol is not recommended for use with continuous alteplase infusions. Contact provider for additional orders. Pharmacist to confirm indication to ensure correct protocol table is followed, if unclear from the physician order or via chart review Pharmacist to verify heparin rate changes based on lab results in the protocol tables below. Pharmacist may update the order and MAR to match the current infusion rate. Dosing Weight: Obtain using a scale, NOT stated weight order-specific heparin dosing weight to be calculated by pharmacist. If weight <= 100 kg, ACTUAL body weight will be used to perform dose calculations If weight exceeds 100 kg, an ADJUSTED body weight will be used to perform dose calculations Initial dosing weight to be used for heparin infusion for the duration of therapy. Caution should be used by the RN to observe that this is the weight programmed in the smart pump. DVT/PE Heparin Infusion (usual indication for VTE: PE/DVT) Per provider order - bolus or no bolus Adjusted body weight used for pts >100 kg Initial Bolus Dose 80 units/kg (MAX 10,000 units) Initial Infusion 18 units/kg/hour Anti-Xa (Units/mL) Bolus (if boluses are authorized by physician per infusion order) Hold Infusion IV infusion Change Next Level Less than 0.2 60 units/kg 0 min Increase heparin dose by 3 units/kg/hr 6 hours 0.2 - 0.29 30 units/kg 0 min Increase heparin dose by 2 units/kg/hr 6 hours 0.3 - 0.7 NO CHANGE Every 6 hours x 2 then every AM 0.71 - 0.8 none 0 min Decrease heparin dose by 1 units/kg/hr 6 hours 0.81 - 0.9 none 30 min Decrease heparin dose by 2 units/kg/hr 6 hours Greater than 0.9 none 60 min Decrease heparin dose by 3 units/kg/hr 6 hours Cardiac Heparin Infusion (usual indication: Atrial fibrillation, mechanical valves, ACS, high bleedrisk) Per provider order - bolus or no bolus Adjusted body weight used for pts >100 kg Initial Bolus Dose Atrial fibrillation, mechanical valves, high bleed risk: 60 units/kg (MAX 7500 units) ACS: 60 units/kg (MAX 4000 units) Initial Infusion Atrial fibrillation, mechanical valves, high bleed risk: 15 units/kg/hour ACS: 12 units/kg/hour (MAX 1000 units/hour) Anti-Xa (Units/mL) Bolus (if boluses are authorized by physician per infusion order) Hold Infusion IV infusion Change Next Level Less than 0.2 30 units/kg 0 min Increase heparin dose by 2 units/kg/hr 6 hours 0.2 - 0.29 15 units/kg 0 min Increase heparin dose by 1 units/kg/hr 6 hours 0.3 - 0.6 NO CHANGE Every 6 hours x 2 then every AM 0.61 - 0.7 none 0 min Decrease heparin dose by 1 units/kg/hr 6 hours 0.71 - 0.9 none 30 min Decrease heparin dose by 2 units/kg/hr 6 hours Greater than 0.9 none 60 min Decrease heparin dose by 3 units/kg/hr 6 hours Cosigned by Maricruz Galvan MD at 04/20/2025 3:34 PM BANANA EXPERT NA EXPERT NA EXPERT * Maricruz Galvan MD - 04/20/2025 1:52 PM CST Images from the original note were not included. Your life is our life's work [facility] Hospitalist/Hospital Medicine Progress Note LOS: 0 days Room/Bed: 4257/01 Patient name: Kristopher Leblanc Date of : 02/28/1958 HOSPITAL COURSE SUMMARY: Kristopher Leblanc is a 67 y.o. male with obesity, atrial fibrillation, HFrEF, and recent hospitalizations who was transferred to [facility] after hospitalization for 2 days at OSH for A fib RVR who developed hematuria with anticoagulation. Upon arrival he was on amiodarone drip, montejo catheter with bloody output. Cardiology and urology were consulted. 04/20: getting VASCULAR TECHNOLOGIST med list; continue amio, heparin trial ok with urology; CBI Consultants: IP CONSULT TO CARDIOLOGY IP CONSULT TO UROLOGY IP CONSULT TO IV TEAM SUBJECTIVE: Feeling ok this morning. Pain is controlled with tylenol. UO is clear while off heparin. ROS: History obtained from the patient Psychological: no Depression, no Suicide ideation/thoughts Constitutional: negative for fever, chills, negative for confusion, fatigue Pulmonary: negative for dyspnea, no cough Cardiovascular: negative for chest pain, no palpitations, no orthopnea GI: negative for nausea, vomiting, diarrhea and constipation, no abdominal pain Renal: no dysuria, no hematuria Musculoskeletal: no back pain, no joint pain, no calf swelling Neuro: negative for headache, no vision changes, no dizziness Skin: no skin rash, no redness OBJECTIVE: Temp (24hrs), Av.9 ??F (36.6 ??C), Min:97.3 ??F (36.3 ??C), Max:98.3 ??F (36.8 ??C) BP 95/72 Comment: RN notified Pulse 93 Temp 97.8 ??F (36.6 ??C) (Temporal) Resp 18 Ht 5' 11 (1.803 m) Wt (!) 142.1 kg (313 lb 4.4 oz) SpO2 95% BMI 43.69 kg/m?? No intake or output data in the 24 hours ending 04/20/25 1352 Last documented weight: Weight: (!) 142.1 kg (313 lb 4.4 oz) (04/20/25 0319) EXAM: General: alert, in no distress Neurologic: Grossly normal HEENT: atraumatic, Normocephalic, without obvious abnormality Lungs: clear to auscultation bilaterally, normal respiratory effort Heart: tachycardic, irregular rhythm Abdomen: obese, soft, nontender Extremities: BLE edema Skin: negative LABORATORY: Recent Labs 04/20/2522804/20/25 1052 WBC 9.1 -- HGB 8.9* 8.9* HCT 29.0* 29.7* PLT 214 -- Recent Labs 04/20/25228 NA 133* K 3.2* CL 95* CO2 22 CA 10.5* BUN 97* CREAT 2.66* GLUCOSE 103* Recent Labs 04/20/25 022 TOTALPROTEIN 7.0 ALBUMIN 3.6 BILITOTAL 0.5 ALKPHOS 51 AST 10 ALT <5 No results for input(s): INR , PT in the last 72 hours. Invalid input(s): PTT Recent Labs 04/20/2522804/20/25 0709 BASETROP 139* -- 6HRTROP -- 147* Diagnostic testing reviewed by me: Medications were reviewed by me. Current Facility-Administered Medications: naloxone (NARCAN) 0.4 mg/mL injection 0.1-0.4 mg, 0.1-0.4 mg, IV, see admin instructions, Gregorio Rogers MD acetaminophen (TYLENOL) tablet 650 mg, 650 mg, Oral, every 6 hours PRN, Gregorio Rogers MD, 650 mg at 04/20/25 1257 [] SEPSIS ANTIBIOTIC ALERT TO PHARMACY, 1 Each, See Admin Instructions, see admin instructions, Gregorio Rogers MD [START ON 04/21/2025] cefTRIAXone (ROCEPHIN) 2,000 mg in sodium chloride 0.9% 50 mL IVPB (MBP), 2,000 mg, IV, daily, Gregorio Rogers MD [COMPLETED] cefTRIAXone (ROCEPHIN) 2,000 mg in sodium chloride 0.9% 50 mL IVPB (MBP), 2,000 mg, IV,ONE time only, Gregorio Rogers MD, Stopped at 04/20/25 1237 amiodarone in dextrose (ISO-OSM) (NEXTERONE) 360 mg/200 mL (1.8 mg/mL) IV infusion, 0.5 mg/min, IV,continuous, Gregorio Rogers MD, Last Rate: 16.67 mL/hr at 04/20/25 1300, 0.5 mg/min at 04/20/25 1300 [COMPLETED] potassium CHLORIDE (KLOR-CON) SR tablet 40 mEq, 40 mEq, Oral, every 4 hours, Maricruz Galvan MD, 40 mEq at 04/20/25 1257 heparin injection 6,100 Units, 60 Units/kg (Adjusted), IV, ONE time only, Maricruz Galvan MD heparin in 0.45% NaCl 25,000 unit/250 mL infusion, 15 Units/kg/hr (Adjusted), IV, titrate, Maricruz Galvan MD [DISCONTINUED] amiodarone in dextrose (ISO-OSM) (NEXTERONE) 360 mg/200 mL (1.8 mg/mL) IV infusion, 0.5 mg/min, IV, continuous, Gregorio Rogers MD Primary discharge diagnosis: Atrial fibrillation with rapid ventricular response (CMS/HCC) Other active medical issues also addressed during this admission: Active Hospital Problems Diagnosis Atrial fibrillation with rapid ventricular response (CMS/HCC) CHRIS (acute kidney injury) Hematuria HFrEF (heart failure with reduced ejection fraction) (CMS/HCC) Resolved Hospital Problems No resolved problems to display. ASSESSMENT AND PLAN: Atrial fibrillation with RVR HFrEF Elevated troponin Denies chest pain/SOB [facility] 2021 reportedly without concern EKG: LBBB, reportedly baseline Trop 139 - 147 - Cardiology consulted on admission Continue amio drip Hold heparin Hematuria Reported once anticoagulation was started Bleeding resumed prior to resuming heparin Monitor Hgb Urology consulted CBI NPO MDN for cystoscopy 04/21 CHRIS JANENE at OSH (see media): bilateral renal cysts Cr 3.5 - 2.66 Thought to be overdiureses in the transfer paperwork Unable to assess urine lytes with CBI Trend Cystitis CT at OSH (see media): diffuse bladder wall thickening suspicious for cystitis UA deferred as CBI ongoing Ceftriaxone (04/20-) Constipation Seen on CT Bowel regimen with senna/miralax BLE edema Venous doppler Hypercalcemia Check PTH and Vit D Normocytic anemia Likely 2/2 hematuria Iron panel, ferritin DVT prophylaxis: DVT Pharmacologic Prophylaxis: heparin in 0.45% NaCl 25,000 unit/250 mL infusion [[id number]] Code status: Full Code Outpatient follow up: PCP Cardiology Urology Anticipated Disposition Location: [facility] Timeframe: 04/22/2025 Criteria: clinically stable Patient's understanding of illness: ok MDM complexity: [] Mild [] Moderate [x] High Maricruz Galvan MD 04/20/2025, 1:52 PM NA EXPERT NA EXPERT * Tara Jiang MD - 04/20/2025 8:56 AM CST Requesting MD: Dr. Galvan Chief reason for consult: CM/HF HPI: 67 M, hx of HTN, hyperlipidemia, DM. Hx of [place], Hx of afib and V fib. Cardiogenic shock. LVEF 20s% and angio 2021 rodas no intervention needed. Here for afib/cm and cardiogenic shock. May have hematuria. EKG at admission, afib LBBB and PVC. Troponin 139, 147 with Cr 2.66, Hg 8.9 Now no chill/fever/cp. Other significant and relevant past medical Hx: not remarkable Social Hx: No active smoke, No excessive ETOH Family Hx: No sig SCD Review of System: Consitutional: no fever or chills Neurologic: No significant headache, recent stroke, or seizure. Eyes: No double visual ENT: No earache, nasal bleeding or signigicant sore throat Cardiac: as HPI Pulmonary: no cough off blood, or significant change in sputum production Gastrointestinal: No significant and prolonged diarrhea or constipation Genitourinary: No hematuria, dysuria. Skin: no significant rash Psychiatric: No clear depression Musculoskeletal: no significant change in myalgias or arthralgias Physical exam: Blood pressure 99/63, pulse 90, temperature 98.3 ??F (36.8 ??C), temperature source Temporal, resp.rate 17, height 5' 11 (1.803 m), weight (!) 142.1 kg (313 lb 4.4 oz), SpO2 97%. General: Pt is alert and oriented, no apparent distress Skin: Warm, moist HEENT: Eyes motion intact, mouth and nose throat has no visible lesion; mucus Neck: supple, no significant lymphadenopathy Lungs: decreased LS with mod crackles Heart: irregularly irregular; no sig murmur Abdomen: Soft, non tender, normal active bowel sounds Extremities: no significant open wound, 1+ edema Neuro: No gross motor or sensory deficits Psychiatric: no clear signs of depression or shania Lab: Lab Results Component Value Date WBC 9.1 04/20/2025 HGB 8.9 (L) 04/20/2025 HCT 29.0 (L) 04/20/2025 PLT 214 04/20/2025 MCV 84.8 04/20/2025 Lab Results Component Value Date NA 133 (L) 04/20/2025 K 3.2 (L) 04/20/2025 CL 95 (L) 04/20/2025 CO2 22 04/20/2025 CA 10.5 (H) 04/20/2025 BUN 97 (H) 04/20/2025 CREAT 2.66 (H) 04/20/2025 GLUCOSE 103 (H) 04/20/2025 ANIONGAP 16 04/20/2025 No results found for: CPK , CKMB , TROPONIN , TROPONIINT , TROPINTR Current Facility-Administered Medications Medication Dose Route Frequency Provider Last Rate Last Admin naloxone (NARCAN) 0.4 mg/mL injection 0.1-0.4 mg 0.1-0.4 mg IV see admin instructions Gregorio Rogers MD acetaminophen (TYLENOL) tablet 650 mg 650 mg Oral every 6 hours PRN Gregorio Rogers MD 650 mg at 04/20/25 0304 [] SEPSIS ANTIBIOTIC ALERT TO PHARMACY 1 Each See Admin Instructions see admin instructions Gregorio Rogers MD [START ON 04/21/2025] cefTRIAXone (ROCEPHIN) 2,000 mg in sodium chloride 0.9% 50 mL IVPB (MBP) 2,000mg IV daily Gregorio Rogers MD cefTRIAXone (ROCEPHIN) 2,000 mg in sodium chloride 0.9% 50 mL IVPB (MBP) 2,000 mg IV ONE time only Gregorio Rogers MD amiodarone in dextrose (ISO-OSM) (NEXTERONE) 360 mg/200 mL (1.8 mg/mL) IV infusion 0.5 mg/min IV continuous Gregorio Rogers MD 16.67 mL/hr at 04/20/25 0312 0.5 mg/min at 04/20/25 0312 potassium CHLORIDE (KLOR-CON) SR tablet 40 mEq 40 mEq Oral every 4 hours Maricruz Galvan MD 40 mEq at 04/20/25 0855 [DISCONTINUED] amiodarone in dextrose (ISO-OSM) (NEXTERONE) 360 mg/200 mL (1.8 mg/mL) IV infusion 0.5 mg/min IV continuous Gregorio Rogers MD Allergy no sig allergy to cardiac meds A/P: 67 M, hx of HTN, hyperlipidemia, DM. Hx of [place], Hx of afib and V fib. Cardiogenic shock. LVEF 20s% and angio 2021 rodas no intervention needed. Here for afib/cm and cardiogenic shock. May have hematuria.Poor historian EKG at admission, afib LBBB and PVC. Troponin 139, 147 with Cr 2.66, Hg 8.9 CM, soft BP and high Cr limit HF meds. Need CCU if Cr or urine output decrease. Afib, Coming in with amio which will be continued due to hx of V fib and afib and frequent pvc now.Plan on FRED/DCCV on Tuesday. Restart heparin when urology clear him. Echo Heparin when clear from urology amio Monitor urine output and Cr FRED/DCCV on Tuesday NA EXPERT NA EXPERT documented in this encounter H&P Notes * Gregorio Rogers MD - 04/20/2025 1:19 AM CST Images from the original note were not included. [place], [place] HOSPITALIST HISTORY AND PHYSICAL Patient name: Kristopher Leblanc Date of : 02/28/1958 CSN number: [id number] PCP: No primary care provider on file. Chief Complaint: No chief complaint on file. History of present illness: Patient was seen and examined at the bedside. 67-year-old male who was transferred to [facility] after hospitalization for 2 days at outside facility for concern of having A-fib with RVR, evaluated by cardiology who started him on amiodarone drip andanticoagulation however the patient developed hematuria. On my evaluation, patient is alert and oriented x 3, however limited historian, denies having any active chest pain, lightheadedness, palpitations, abdominal pain, fever, chills, cough, burning with urination, Montejo catheter with bloody output. Review of Systems: ROS Reviewed. Pertinent review of systems information is listed above under History of Present Illness. Medical History Allergies: No Known Allergies Prior to Admission Medications Prior to Admission medications Not on File Past Medical History: No past medical history on file. Past Surgical History: No past surgical history on file. Family History: No family history on file. Reviewed and otherwise noncontributory to this encounter. Social History: Social History Tobacco Use Smoking status: Not on file Smokeless tobacco: Not on file Substance Use Topics Alcohol use: Not on file Physical Examination: There were no vitals filed for this visit. Physical Exam Constitutional: Appearance: He is obese. HENT: Head: Normocephalic. Nose: Nose normal. Eyes: Extraocular Movements: Extraocular movements intact. Cardiovascular: Rate and Rhythm: Tachycardia present. Rhythm irregular. Pulses: Normal pulses. Pulmonary: Effort: Pulmonary effort is normal. Breath sounds: Normal breath sounds. Abdominal: General: Abdomen is flat. Palpations: Abdomen is soft. Musculoskeletal: General: Normal range of motion. Cervical back: Normal range of motion. Right lower leg: No edema. Left lower leg: No edema (Chronic venous stasis according to the patient). Skin: General: Skin is warm. Capillary Refill: Capillary refill takes less than 2 seconds. Neurological: Mental Status: He is alert and oriented to person, place, and time. Data Review: I have personally reviewed the following admitting data listed below and other admitting data that may not be listed below: I have personally seen, questioned and examined the patient at the bedside. I have personally reviewed the following laboratory results: CBC: No results for input(s): WBC , HGB , HCT , PLT in the last 72 hours. Metabolic profile: No results for input(s): NA , K , BUN , CREAT , CO2 , AST , ALT , BILITOTAL , ALKPHOS , TSH , AMYLASE , LIPASE in the last 72 hours. Invalid input(s): CLGLUCOSE , CALCIUM Coagulation: No results for input(s): PT , INR , APTT in the last 72 hours. Cardiac markers: No results found for: BASETROP , 2HRTROP , DELTA , 6HRTROP Other personal data review pertinent to the specific assessment can be found below. ASSESSMENT AND PLAN: 67-year-old male who was transferred to [facility] after hospitalization for 2 days at outside facility for concern of having A-fib with RVR, evaluated by cardiology who started him on amiodarone drip andanticoagulation however the patient developed hematuria after Montejo, CT abdomen and renal ultrasound with bladder wall thickening, bilateral renal cysts, according to the transfer paper, EKG with left bundle at baseline, troponin of 160, plateauing, TTE with EF of 20%, 55% in the past, left heart catheter 2021 with no acute concern, patient was transferred for cardiology and urology eval. Patientalso found to have CHRIS, creatinine of 3.5, unknown baseline, thought to be from overdiuresis according to the transfer paper. There was a mention of cardiogenic versus hemorrhagic shock however patient on no pressors prior to the transfer. Atrial fibrillation with rapid ventricular response (CMS/HCC) HFrEF > A-fib order set with amiodarone drip > Looks euvolemic on my physical exam, will hold further diuresis for now > Cardiology consulted for A-fib with RVR, reduction in EF CHRIS (acute kidney injury) > Urine lites added > Outside abdominal CT and ultrasound reviewed as above > Daily CMP Cystitis > IV ceftriaxone Hematuria > Daily CBC > Urology consult I have spent (77) minutes on this patient encounter CODE STATUS: Full code DVT prophylaxis: Mechanical Diet: N.p.o. until urology eval Disposition: This patient is admitted as stepdown telemetry inpatient. I anticipate that the patient will be hospitalized for 2 midnights or greater, as outlined in my assessment and plan Personally discussed patient care with ED providers and any other consulting providers. Patient in agreement with the assessment and plan. Patient is to follow up with Primary Care Provider/Specialists regarding the events leading to this admission, as well as the diagnoses, tests, treatments, recommendations, etc., from this admission, as well as previous medical history, and age andgender and symptom appropriate screening, immunizations, etc. Patient counseled by me regarding medical reasons for medical compliance, risks of non-compliance, and risks of leaving the hospital prior to completion of hospital evaluation and treatment, etc, including , permanent medical problems, loss of use of his limb, etc. Patient understands that specialist consultations, multiple tests, etc, are or may be in process, and/or planned, and patient will need to follow up final results andrecommendations, records, etc, with patient's outpatient Doctor/Primary Care Provider. All questions answered. Signed: Gregorio Rogers MD 04/20/2025, 1:20 AM This document was created by voice recognition software. A conscious effort has been made to improve accuracy of the emotionally impaired teacher. Any obvious errors or omissions should be clarified with the authorof this document. NA EXPERT documented in this encounter Procedure Notes * Nahomi Howell RDMS - 04/21/2025 11:06 AM CST CARDIOVASCULAR SERVICES NONINVASIVE VASCULAR [place]- [place]T [id number] TECHNOLOGIST PRELIMINARY WORKSHEET PHYSICIAN INTERPRETATION TO FOLLOW Patient Name: Kristopher Leblanc Rm#: [id number] Date:04/21/2025 Tech Initials: tereso Exam End Time: 1100 Critical Result Notification [] DrBenjamín [] RN (name) Notification Time: 1100 Noninvasive lower extremity venous study performed on: [x] Right [x] Left A. [x] There are no echo images consistent with acute venous obstruction throughout the venous system scanned. B. [] Imaging is consistent with an obstruction in the [] Superficial venous [] Deep venous system [] Right [] Left [] Groin [] Groin [] Proximal Thigh [] Proximal Thigh [] Distal Thigh [] Distal Thigh [] Popliteal [] Popliteal [] Calf [] Calf [] Softer echoes are considered consistent with acute venous obstruction [] Brighter echoes are considered consistent with chronic venous obstruction [] Soft echoes not well adhered to vein wall are considered consistent with freefloating obstruction [] Venous reflux is considered to be consistent with venous insufficiency Technologist Comments: NA EXPERT documented in this encounter Consult Notes * Uvaldo Huber MD - 04/22/2025 6:16 PM CSTAssociated Order(s): IP CONSULT TO NEPHROLOGY Nephrology Consult Attending Physician: Komal Crandall MD Reason for consultation: acute kidney injury History of Present Illness. Kristopher Leblanc is a 67 y.o. male with obesity, atrial fibrillation, HFrEF, and recent hospitalizations who was transferred to [facility] after hospitalization for 2 days at OSH for A fib RVR who developed hematuria with anticoagulation. Upon arrival creatinine 2.66. Up to 3.14 today. He had montejo placed, with persistent hematuria. No montejo with non bloody urine, full montejo bag. He had been on diuretics as outpatient. LE swelling is down. Reports oral intake down some. BUN 102. BP stable currently, hadbeen lower prior. K 3.[address] at OSH with diffuse bladder wall thickening, suspicion for cystitis. No hydronephrosis. High urine output with montejo. 5L. No past medical history on file. No past surgical history on file. No medications prior to admission. No Known Allergies Social History Tobacco Use Smoking status: Never Smokeless tobacco: Never Substance Use Topics Alcohol use: Not Currently No family history on file. Review of Systems History obtained from the patient General ROS: + weakness ENT ROS:+ dry mouth Endocrine ROS: no polyuria/+ polydipsia Respiratory ROS: no dyspnea Cardiovascular ROS: no chest pain, some palpitations Gastrointestinal ROS: no diarrhea, abdominal pain Genito-Urinary ROS: montejo, higher UOP Musculoskeletal ROS: + weakness Neurological ROS: no seizures Objective: BP 138/85 Pulse (!) 127 Temp 98 ??F (36.7 ??C) (Temporal) Resp 18 Ht 5' 11 (1.803 m) Wt (!) 142.1 kg (313 lb 4.4 oz) SpO2 100% BMI 43.69 kg/m?? General appearance: alert, in no distress, obese Head: atraumatic, Normocephalic, without obvious abnormality Neck: no JVD Lungs: clear to auscultation bilaterally Heart: normal rate, regular rhythm, normal S1, S2, no murmurs, rubs, clicks or gallops Abdomen: Soft, non-tender. Bowel sounds normal. No masses, no organomegaly. Extremities: nodular edema, Skin: nodular hyperpigmentation bilateral Neurologic: Grossly normal Musculoskeletal: no joint tenderness, deformity or swelling Data Review: Results for orders placed or performed during the hospital encounter of 04/20/25 (from the past 24 hours) HEMOGLOBIN AND HEMATOCRIT Result Value Ref Range HEMOGLOBIN 8.0 (L) 14.0 - 18.0 g/dL HEMATOCRIT 26.3 (L) 41.0 - 53.0 % CBC WITH DIFFERENTIAL Result Value Ref Range WBC 8.1 4.8 - 10.8 K/uL RBC 3.27 (L) 4.60 - 6.20 M/uL HEMOGLOBIN 8.5 (L) 14.0 - 18.0 g/dL HEMATOCRIT 28.6 (L) 41.0 - 53.0 % MCV 87.5 84.0 - 103.0 fL MCH 26.0 (L) 27.0 - 34.0 pg MCHC 29.7 (L) 30.0 - 35.0 g/dL PLATELETS 201 140 - 440 K/uL MPV 9.7 8.9 - 12.8 fL RDW 19.1 (H) 11.0 - 14.5 % RDW-STDEV 61.1 (H) 37.0 - 54.0 fL NEUTROPHILS 71 42 - 75 % LYMPHOCYTES 16 (L) 24 - 44 % MONOCYTES 8 2 - 10 % EOSINOPHILS 3 0 - 7 % BASOPHILS 1 0 - 1 % IMMATURE GRANULOCYTES 1 0 - 2 % NEUTROPHIL ABSOLUTE 5.73 2.00 - 8.00 K/uL LYMPHOCYTE ABSOLUTE 1.30 1.20 - 4.00 K/uL MONOCYTE ABSOLUTE 0.62 (H) 0.10 - 0.60 K/uL EOSINOPHIL ABSOLUTE 0.27 0.00 - 0.70 K/uL BASOPHILS ABSOLUTE 0.04 0.00 - 0.20 K/uL IMMATURE GRANULOCYTES ABSOLUTE 0.10 0.00 - 0.10 K/uL SMEAR REVIEWED: NN - No Action Needed BASIC METABOLIC PANEL Result Value Ref Range SODIUM 136 136 - 145 mmol/L POTASSIUM 3.3 (L) 3.5 - 5.1 mmol/L CHLORIDE 97 (L) 98 - 107 mmol/L CO2 20 (L) 22 - 29 mmol/L CALCIUM 10.2 8.8 - 10.2 mg/dL BUN 102 (H) 8 - 23 mg/dL CREATININE 3.14 (H) 0.67 - 1.17 mg/dL GLUCOSE 155 (H) 74 - 99 mg/dL GFR 21 (L) >=60 mL/min/1.73 sq meter ANION GAP 19 9 - 20 mmol/L MAGNESIUM LEVEL Result Value Ref Range MAGNESIUM 2.0 1.6 - 2.4 mg/dL ECHOCARDIOGRAM W/ CONTRAST AGENT Result Value Ref Range EJECTION FRACTION 30 SODIUM, RANDOM URINE Result Value Ref Range SODIUM, URINE 122 mmol/L UREA NITROGEN/CREATININE RATIO, URINE Result Value Ref Range UREA NITROGEN, URINE 156 mg/dL CREATININE, URINE 15.3 (L) 40.0 - 278.0 mg/dL UREA/CREAT RATIO, UR 10.2 mg/mg Creatinine URINALYSIS WITH REFLEX MICROSCOPIC Result Value Ref Range COLOR UA Colorless (A) Pale to Dark Yellow CLARITY UA Cloudy (A) Clear SPECIFIC GRAVITY UA 1.008 1.003 - 1.035 PH UA 6.0 5.0 - 8.0 LEUKOCYTE ESTERASE UA 3+ (A) Negative NITRITE UA Negative Negative PROTEIN UA 1+ (A) Negative GLUCOSE UA Negative Negative KETONES UA Negative Negative UROBILINOGEN UA <2.0 <2.0 mg/dL BILIRUBIN UA Negative Negative BLOOD UA 3+ (A) Negative WBC UA >100 (A) 0 - 2 /hpf RBC UA >100 (A) 0 - 2 /hpf BACTERIA UA 1+ (A) Negative /hpf HYALINE CAST 0-2 None Seen, 0-2 /lpf PROTEIN/CREATININE RATIO, URINE Result Value Ref Range PROTEIN CONCENTRATION 75 (H) 0 - 20 mg/dL CREATININE, URINE 15.3 (L) 40.0 - 278.0 mg/dL PROTEIN/CREAT RATIO, URINE 4.90 (H) 0.00 - 0.19 mg/mg Creatinine HEMOGLOBIN AND HEMATOCRIT Result Value Ref Range HEMOGLOBIN 9.5 (L) 14.0 - 18.0 g/dL HEMATOCRIT 31.4 (L) 41.0 - 53.0 % POTASSIUM LEVEL Result Value Ref Range POTASSIUM 3.8 3.5 - 5.1 mmol/L UNFRACTIONATED HEPARIN MONITORING Result Value Ref Range ANTI-XA UNFRAC HEP 0.13 See Interpretation IU/mL Renal US IMPRESSION: 1. Unremarkable right kidney. 2. Multiple left renal cysts. The largest is a simple appearing 6.8 cm cyst. 3. The gallbladder is incidentally noted to be abnormally enlarged and contains at least one small stone. 4. There is a nonspecific 2.2 cm hypoechoic nodule between the upper pole of the left kidney and the spleen that could be a small accessory spleen, adrenal nodule or abnormal lymph node. Assessment/Plan Acute kidney injury- secondary to dehydration, and possible obstructive uropathy. UOP now higher. Montejo placed. Holding diuretics. Starting on some IVFs. BP stable currently. Avoid nephrotoxins 2. Hematuria- no reports of obstruction. Montejo with clearer urine now. Urology following. Higher UOP. 3. Systolic HF- EF 30%. Does not appear to be decompensated, suspect some intravascular volume depletion. Holding diuretics. Started on some IVFs. 4. Hypokalemia- with prior diuresis. Replace PO and IV. Mag stable. K goal >4 with hx afib. NA EXPERT * Rishabh Reed MD - 04/20/2025 6:14 PM CSTAssociated Order(s): IP CONSULT TO UROLOGY Urology Consult/H&P Kristopher Leblanc : 02/28/1958 Age: 67 y.o. Sex: male CSN: [id number] Admit Date: 04/20/2025 1:00 AM Atrial fibrillation with rapid ventricular response (CMS/HCC) HPI Kristopher Leblanc is a 67 y.o. male admitted for gross hematuria while on antiplatelet agents for atrialfibrillation. No Known Allergies No medications prior to admission. Patient Active Problem List Diagnosis Code Atrial fibrillation with rapid ventricular response (CMS/HCC) I48.91 CHRIS (acute kidney injury) N17.9 Hematuria R31.9 HFrEF (heart failure with reduced ejection fraction) (CMS/HCC) I50.20 No past medical history on file. No past surgical history on file. No family history on file. Social History Socioeconomic History Marital status: Significant other Spouse name: Not on file Number of children: Not on file Years of education: Not on file Highest education level: Not on file Occupational History Not on file Tobacco Use Smoking status: Not on file Smokeless tobacco: Not on file Substance and Sexual Activity Alcohol use: Not on file Drug use: Not on file Sexual activity: Not on file Other Topics Concern Not on file Social History Narrative Not on file Health-Related Social Needs Food Insecurity: Not on file (04/20/2025) Transportation Needs: No Transportation Needs (04/20/2025) Transportation Needs Patient needs follow up regarding:: 1 Domestic Concerns: Not on file Housing Stability: Not on file REVIEW OF SYSTEMS: As per admission history and physical exam with no changes VITAL SIGNS: Patient Vitals for the past 8 hrs: BP Temp Temp src Pulse Resp SpO2 04/20/25 1526 (!) 90/59 97.6 ??F (36.4 ??C) Temporal -- 17 -- 04/20/25 1126 95/72 -- -- 93 18 95 % 04/20/25 1100 -- 97.8 ??F (36.6 ??C) Temporal -- -- -- Temp (24hrs), Av.9 ??F (36.6 ??C), Min:97.3 ??F (36.3 ??C), Max:98.3 ??F (36.8 ??C) PHYSICAL EXAM: Montejo catheter draining clear urine on slow CBI MULTI-SYSTEM PHYSICAL EXAMINATION: Constitutional : Well nourished. Good grooming. Respiratory: Normal respiratory effort, no tactile fremitus, no audible wheezes. Cardiovascular: Abdominal aorta normal to palpation. ++ lower extremity edema. Gastrointestinal: No masses or tenderness, no hepatosplenomegaly. Psychiatric: Normal judgement and insight, normal mood and affect. DATA REVIEWED: Most recent labs: No results found for: PHUA , SGUR , URINELEUKOC , NITRITEUA , KETONEURINE , PROTEINUA , GLUUA , BLOODUA Lab Results Component Value Date/Time CREAT 2.89 (H) 04/20/2025 01:58 PM No results found for: PSA , PSADIAG , PSASCRN , PSAFREE Most recent X-ray No results found for this or any previous visit. Most recent CT: No results found for this or any previous visit. All pertinent labs, images, and history reviewed. Source of History: patient ASSESSMENT: Principal Problem: Atrial fibrillation with rapid ventricular response (CMS/HCC) Active Problems: CHRIS (acute kidney injury) Hematuria HFrEF (heart failure with reduced ejection fraction) (CMS/HCC) BPH Gross hematuria PLAN: His CT scan demonstrates a thick-walled bladder with minimal prostatic hypertrophy. There does not appear to be significant clot on CT imaging. He does have bilateral renal cysts versus renal masses which do not appear to be hemorrhagic. These will have to be further evaluated as an outpatient. He has persistent hematuria despite continuous bladder irrigation. I tentatively plan cystoscopy with clot evacuation and fulguration of bleeding tomorrow. Please make n.p.o. after midnight. Continueto hold antiplatelet agent with active urinary bleeding. Rishabh Reed MD 04/20/2025 Portions of this document were created using [employer] brusher software. Effort has beenmade to ensure the accuracy of the emotionally impaired teacher. Any obvious errors or omissions should be clarified with the author of this document. NA EXPERT * Flako Peterson RN - 04/20/2025 8:34 AM CSTAssociated Order(s): IP CONSULT TO IV TEAM VASCULAR ACCESS CONSULT PATIENT NAME: Kristopher Leblanc DATE OF : 02/28/1958 CSN: [id number] DATE: 04/20/2025 Room: [address] [place] [address] Admit Date: 04/20/2025 Hospital day: LOS: 0 days INDICATION: Request for blood cultures and lab draw EXCLUSIONS/CONSIDERATIONS: pt with PICC in right upper arm 04/20 LAST RECORDED TEMP: Temp: 98.3 ??F (36.8 ??C) (04/20/25318)] Assessment No Known Allergies Lab Results Component Value Date/Time CREAT 2.66 (H) 04/20/2025 02:29 AM BUN 97 (H) 04/20/2025 02:29 AM NA 133 (L) 04/20/2025 02:29 AM K 3.2 (L) 04/20/2025 02:29 AM CL 95 (L) 04/20/2025 02:29 AM CO2 22 04/20/2025 02:29 AM GFR 25 (L) 04/20/2025 02:29 AM Lab Results Component Value Date/Time WBC 9.1 04/20/2025 02:29 AM HGB 8.9 (L) 04/20/2025 02:29 AM HCT 29.0 (L) 04/20/2025 02:29 AM PLT 214 04/20/2025 02:29 AM MCV 84.8 04/20/2025 02:29 AM No results found for: INR , PT , PROTIMEPOC No past medical history on file. No past surgical history on file. Current Facility-Administered Medications: naloxone (NARCAN) 0.4 mg/mL injection 0.1-0.4 mg, 0.1-0.4 mg, IV, see admin instructions, Gregorio Rogers MD acetaminophen (TYLENOL) tablet 650 mg, 650 mg, Oral, every 6 hours PRN, Gregorio Rogers MD, 650 mg at 04/20/25 0304 [] SEPSIS ANTIBIOTIC ALERT TO PHARMACY, 1 Each, See Admin Instructions, see admin instructions, Gregorio Rogers MD [START ON 04/21/2025] cefTRIAXone (ROCEPHIN) 2,000 mg in sodium chloride 0.9% 50 mL IVPB (MBP), 2,000 mg, IV, daily, Gregorio Rogers MD cefTRIAXone (ROCEPHIN) 2,000 mg in sodium chloride 0.9% 50 mL IVPB (MBP), 2,000 mg, IV, ONE time only, Gregorio Rogers MD amiodarone in dextrose (ISO-OSM) (NEXTERONE) 360 mg/200 mL (1.8 mg/mL) IV infusion, 0.5 mg/min, IV,continuous, Gregorio Rogers MD, Last Rate: 16.67 mL/hr at 04/20/25 0312, 0.5 mg/min at 04/20/25 0312 potassium CHLORIDE (KLOR-CON) SR tablet 40 mEq, 40 mEq, Oral, every 4 hours, Maricruz Galvan MD [DISCONTINUED] amiodarone in dextrose (ISO-OSM) (NEXTERONE) 360 mg/200 mL (1.8 mg/mL) IV infusion, 0.5 mg/min, IV, continuous, Gregorio Rogers MD PLAN Assess pt for lab specimen draws. Addendum: After extensive conversations between the pt and the nursing staff, due to the pt being unsure if he wanted blood cultures drawn, it was determined that the pt would prefer to wait for the lab draw until his result from the sending facility is received. An hour was spent due to the pt agreeing to the blood draw and then stopping this RN just as I was about to perform venipuncture twice. Flako Peterson RN NA EXPERT NA EXPERT documented in this encounter OR Notes * Operative Report - Rishabh Reed MD - 04/27/2025 12:37 PM CST NAME: Kristopher Leblanc : 02/28/1958 MRN; [id number] CSN: [id number] ADMISSION DATE: 04/20/2025 OPERATIVE REPORT DATE: 04/27/2025 SURGEON: Rishabh Reed MD WOOD MODEL BUILDER: None PRE-OP DIAGNOSIS: Gross hematuria POST-OP DIAGNOSIS: SAME PROCEDURE: Cystoscopy, fulguration of bleeding Anesthesia Type: General FINDINGS: Mild inflammation at dome of bladder. No tumors. Moderate prostatic hypertrophy with mildtrabeculation of bladder. COMPLICATIONS: None Procedure Start: 912 Procedure End: 924 ESTIMATED BLOOD LOSS: Minimal FLUIDS: Per anesthesia SPECIMENS: None IMPLANTS: None INDICATIONS FOR OPERATION: 67-year-old male anticoagulation with gross hematuria presents for operative intervention PROCEDURE IN DETAIL: The risks and benefits of the procedure were discussed with the patient in detail and informed consent obtained. They were taken to the operating room and placed supine on the operating room table. General anesthesia was induced. They were given appropriate preoperative antibiotics and a presurgical timeout was performed. He was placed in lithotomy position. His groin genitalia were prepped and draped in the standard sterile fashion. I began by inserting a 22 Angolan rigid scope to the patient urethra and into the bladder. His prostate was mildly hypertrophic. He had some mild trabeculation. He had irritation from indwelling Montejo catheter with no tumors. There was some moderate oozing from the dome of the bladder which was fulgurated. No other sites were bleeding. I cycled his bladder several times and there wasno bleeding visualized. The scope was withdrawn and a 20 Angolan three-way catheter was placed per urethra with 2% lidocaine jelly anesthetizing his urethra. He tolerated the procedure well and there were no intraoperative complications. Plan: We will resume CBI and clamp in the morning. Rishabh Reed MD 04/27/2025 NA EXPERT * Anesthesiology - Kristopher Mitchell DO - 04/22/2025 8:01 AM CST High risk patient scheduled for bladder fulguration. In Afib with RVR, echo ordered. Will need HR < 100 and echo results before deciding whether it's safe to proceed. NA EXPERT documented in this encounter Miscellaneous Notes * Care Plan - Martha Escobar GN - 04/29/2025 10:08 AM CST Shift Summary Patient refused all scheduled medications for constipation and skin protection during the shift. No falls, injuries, or acute changes in condition were documented, and safety protocols were followed. Delirium screening was negative, and wounds remained within defined limits. Severe muscle weakness and limited mobility persisted, with patient remaining bedfast and refusing activity. Overall, patient remained stable with no acute deterioration or new complications during the shift. Infection Risk/Actual: Infection prevention, control, or resolution by discharge: No new or worsening wounds were documented, and both the urethral meatus surgical site and bilateral gluteal area remained within defined limits throughout the shift. No fever or abnormal skin temperature was noted, and no delirium symptoms were present. Safety/Fall: Absence of fall, injury, harm during hospitalization: Fall risk was reviewed and agreed upon, safety checks were completed, and bleeding precautions were maintained; no falls or injuriesoccurred during the shift. Identify discharge needs upon admission and through discharge: Patient required greater than two-person assist for activity and used a transfer pad, with bed mobility only and refusal of activity noted; ongoing assessment of discharge needs is necessary. Achieve optimal respiratory function by discharge and/or maintain baseline function: Breath sounds remained diminished and dyspnea on exertion persisted, but no acute respiratory distress was documented and oxygen therapy was not required. Achieve optimal musculoskeletal function by discharge or maintain baseline function: Severe generalized muscle weakness and slightly limited mobility persisted, with bedfast status and refusal of activity; patient remained at Level 1 bed mobility. 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 May return skilled if working with therapies, if not may return LTC Expected Discharge Date Apr 30, 2025 Plan Discharge To: [facility]iary Facility (04/28/25 1040) Plan Discharge To - Alternate: Medicaid certified nursing facility (04/28/25 104) Referrals Status: Facility Referrals - Accepted Follow-up on Referrals Sent: No (04/28/25 104) Preferred Pharmacy: [id number] - [place], [place] - [address] [facility] [address] Patient / Family Communications: Patient/Family Communications: Plan Discharge To Update (04/23/25 1210) Resources Provided Transportation Plan: Has discharge transport been arranged?: No (04/28/25 1040) Follow Up Appointments Scheduled Nahomi Kruger RN NA EXPERT * Care Plan - Nahomi Kruger RN - 04/26/2025 11:39 AM CST Problem: Discharge Planning Goal: Identify discharge needs upon admission and through discharge Description: Outcome: 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 Will either return skilled or return LTC, depending on if the pt works with therapy. Expected Discharge Date Apr 26, 2025 Plan Discharge To: Penitentiary Facility (04/26/25 1139) Plan Discharge To - Alternate: Medicaid certified nursing facility (04/26/25 1139) Referrals Status: Facility Referrals - Accepted Follow-up on Referrals Sent: No (04/26/25 1139) Preferred Pharmacy: [facility] #[id number] - [place], [place] - [address] [facility] [address] Patient / Family Communications: Patient/Family Communications: Plan Discharge To Update (04/23/25 1210) Resources Provided Transportation Plan: Has discharge transport been arranged?: No (04/26/25 1139) Follow Up Appointments Scheduled Nahomi Kruger RN NA EXPERT * Care Plan - Nahomi Kruger RN - 04/25/2025 10:56 AM CST Problem: Discharge Planning Goal: Identify discharge needs upon admission and through discharge Description: Outcome: 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 However, the pt must be willing to work with therapies. Spoke with pt this morning, let him know this information, and asked that he please try to work with therapies. Pt stated understanding and stated he would work with therapies. Expected Discharge Date Apr 26, 2025 Plan Discharge To: Penitentiary Facility (04/25/25 1056) Plan Discharge To - Alternate: Medicaid certified nursing facility (04/25/25 1056) Referrals Status: Facility Referrals - Accepted Follow-up on Referrals Sent: No (04/25/25 1056) Preferred Pharmacy: [id number] [place] [address] [address] [facility] [address] Patient / Family Communications: Patient/Family Communications: Plan Discharge To Update (04/23/25 1210) Resources Provided Transportation Plan: Has discharge transport been arranged?: No (04/25/25 105) Follow Up Appointments Scheduled Nahomi Kruger RN NA EXPERT * Care Plan - Brianna Hollis RN - 04/25/2025 6:01 AM CST Shift Summary Neck and shoulder pain was addressed with acetaminophen, resulting in comfort for the remainder of the shift. Right gluteal pressure injury was managed with moisture barrier cream and frequent repositioning, with no documented changes in wound status. Urinary catheter care included continuous irrigation for clot evacuation, with increased output marlene transient change in urine color to light red, but no new findings in assessments. Atrial fibrillation with rapid ventricular response persisted, but heart rate decreased later in the shift and blood pressure remained low-normal. Overall, comfort was maintained, wounds and catheter were managed per protocol, and no new complications were documented during the shift. Infection Risk/Actual: Infection prevention, control, or resolution by discharge: No new findings related to infection risk; hygiene care performed with CHG and montejo care maintained, and no changes in wound or catheter assessments were documented regarding infection. NA EXPERT * Care Plan - Laury Frausto RCP - 04/25/2025 1:46 AM CST NOC CPAP Note Is this the patient's device? Yes Adult Vent Non-Invasive: Adult Vent Non-Invasive: Nocturnal (04/23/25) Device Asset ID# (If using facility equipment): Vent ID: home unit (04/23/25 1500) CPAP Daily Charge: Device Name: Vent Type: Home Unit (04/23/25) Device Settings: Delivery Mode: Home (04/23/25 1500) CPAP (cm H2O): (Home Settings) (04/21/25 0200) Interface: Delivery Method: Home (04/23/25) Mask/Prong Size:Mask/Prong Size: Home (04/23/25) Oxygen Flow (if applicable): Is the patient wearing the device? 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 Discharge Planning Return to [facility] [place] Expected Discharge Date Apr 24, 2025 Plan Discharge To: Penitentiary Facility (04/24/25 104) Plan Discharge To - Alternate: Medicaid certified nursing facility (04/24/25 104) Referrals Status: Facility Referrals - Accepted Follow-up on Referrals Sent: No (04/24/25 104) Preferred Pharmacy: [facility] #[id number] [place] [address] [address] [facility] [address] Patient / Family Communications: Patient/Family Communications: Plan Discharge To Update (04/23/25 1210) Resources Provided Transportation Plan: Has discharge transport been arranged?: No (04/24/25 4221) Follow Up Appointments Scheduled Nahomi Kruger RN NA EXPERT * Care Plan - Mariah Gonzales, Occupational Therapist - 04/24/2025 10:00 AM BANANA EXPERT [facility] [address]. Acute Occupational Therapy Treatment 04/24/2025 Room: [address] [place] [address] Name: Kristopher Leblanc Age: 67 y.o. Patient Class: Inpatient Date of : 02/28/1958 Insurance: Payor: [employer] MEDICARE ADVANTAGE / Plan: [facility] PPO [id number] / Product Type: PPO / Prior to OT session thorough chart review completed, including prior OT notes as applicable. Consent to treat provided by patient and nurse Date of admission: 04/20/2025 SUBJECTIVE Patient Statements Information provided by: patient and nurse Patient/family comments: Pt agreeable to OT, states his goal is to stand with a RW. Pt reports he has been at multiple SNF's but very difficult getting PLOF info. Pt would say I don't want to talk about that right now and would get slightly irritated re: subject. Informed Pt we ask to know what attainable goals to set for him and a better understanding how he was functioning prior to admission. Pain: Refer to flowsheet for documentation of pain and interventions. OBJECTIVE Cognition Level of alertness: alert Orientation: x4 WNL, however difficulty explaining PLOF Command following: good Safety awareness: good Memory: WFL conversationally Occupational Performance Activities of Daily Living Grooming: supervision for ADL task set up while supine Upper extremity dressing: minimal assistance in bed donning gown Lower extremity dressing: maximal assistance in bed donning socks Toileting: dependent assistance with montejo catheter Bathing: maximal assistance supine for sponge bath, Pt able to slightly assist with B UE 's Functional Mobility All mobility completed with gait belt, non-skid socks, and 2 person assist and pocket slider Bed mobility: maximal assistance to roll L/R, deferred sitting EOB at this time d/t hospitalist in coming into room. Pt would benefit co-tx next session d/t unsure of pt's baseline at facility [facility] AM-PAC Daily Activity How much help from another person does the patient currently need? Score 1. Putting on and taking off regular lower body clothing? 1 - Total assist or cannot do at all 2. Bathing (including washing, rinsing, drying)? 2 - A lot (max to mod assist) 3. Toileting, which includes using toilet, bedpan or urinal? 1 - Total assist or cannot do at all 4. Putting on and taking off regular upper body clothing? 3 - A little (supervision to min assist) 5. Taking care of personal grooming such as brushing teeth? 3 - A little (supervision to min assist) 6. Eating meals? 3 - A little (supervision to min assist) Total score 13/24 0-19 indicates likely facility discharge 19-24 indicates likely community discharge *Scores determined based on patient report, observation or professional expertise* Additional Interventions No additional treatment provided during this session Education provided to patient regarding treatment plan and session goals Education response: verbalized understanding and would benefit from reinforcement Vitals Current O2 requirement: room air Vital signs stable throughout. Precautions Patient precautions: fall and bleeding Patient bracing/orthotics: none Weight bearing: no restrictions ASSESSMENT & PLAN Assessment Patient is progressing towards care plan goals. Patient is currently functioning below his prior level of function. Plan Will discontinue acute OT services as patient has returned to baseline. Discussed with supervising OT and CM who called his facility. Pt has refused therapy at current LTC facility, he has always used a debra for transfers and is total Pt care for ADL's except for self feeding. Anticipate ongoing OT treatment sessions with specific focus on continue OT POC Recommendations Based on OT assessment of patient's ability to complete self-care tasks and their AM-PAC Daily Activity Score, anticipated discharge disposition: Return to LTC, at baseline Rationale: Patient needs daily (weekday) skilled OT services. Anticipate tolerance is limited for intensive or adapted intensive rehab program and extended recovery time needed.. * The final discharge location is determined through physician, case management, and patient/caregiver input along with i yinkaurance authorization of skilled services when appropriate OT recommended DME and AE upon discharge: No new DME recommended (04/22/25 110) No new additional adaptive equipment necessary (11/10/25 1103) Nursing Staff Mobility Recommendations Recommended daily activity during admission: dependent lift Disposition At start of session, patient found lying in bed At end of session, patient left in bed, call light in reach, phone in reach, and staff notified of patient location/events of session Further treatment notes and therapeutic goals can be found in Care Plan Notes. If the patient discharges from facility before another therapy visit, this shall serve as therapy discharge summary. Thank you for this referral, Ashley Fulton, Video Game Creator Collaborated with LACHELLE regarding plan of care. Per discussion with nursing staff at [facility] [place], that patient has been a LT resident with them for a month. He has declined all out of bed activity and declines assist from staff to get into a wheelchair. He has thereforebeen essentially bed-bound for the last month. He is also dependent for all ADLs except for self-feeding, which he demonstrates ability to perform here via ROM and strength testing. Due to patient being at his functional baseline and without need for further acute OT intervention, will discharge patient from caseload. Mariah Gonzales, Occupational Therapist NA EXPERT NA EXPERT NA EXPERT NA EXPERT * Care Plan - Laury Frausto, [facility] - 04/24/2025 2:15 AM CST NOC CPAP Note Is this the patient's device? Yes Adult Vent Non-Invasive: Adult Vent Non-Invasive: Nocturnal (04/23/25) Device Asset ID# (If using facility equipment): Vent ID: home unit (04/23/251499) CPAP Daily Charge: Device Name: Vent Type: Home Unit (04/23/25) Device Settings: Delivery Mode: Home (04/23/25 1500) CPAP (cm H2O): (Home Settings) (04/21/25 0200) Interface: Delivery Method: Home (11/11/25 0000) Mask/Prong Size:Mask/Prong Size: Home (04/23/25 0000) Oxygen Flow (if applicable): Oxygen Therapy Flow (L/min): 1 (04/23/25 0700) Is the patient wearing the device? No Laury Frausto RCP NA EXPERT * Care Plan - Thuan Alfonso GN - 04/23/2025 5:09 PM CST Shift Summary Synchronized electrical cardioversion was performed, resulting in conversion from atrial fibrillation to normal sinus rhythm and stabilization of heart rate and blood pressure post-procedure. Pain and sedation were managed with multiple administrations of fentanyl and midazolam during the procedure. Infection prevention measures were maintained, including CHG bathing and central line care, with nodocumented signs of infection. High fall risk interventions and safety checks were consistently implemented, and no falls or injuries occurred during the shift. Overall, cardiovascular status improved after cardioversion, and skin integrity was preserved throughout the shift. Infection Risk/Actual: Infection prevention, control, or resolution by discharge: No signs of infection were documented, and blood cultures are in progress with no preliminary positive results; central line dressing remained clean, dry, and intact, and hygiene care was performed with CHG bath. Safety/Fall: Absence of fall, injury, harm during hospitalization: High fall risk interventions were consistently implemented, including use of a low low bed and completion of safety checks, with no reported falls or injuries during the shift. Maintain skin integrity and/or promote wound healing by discharge: Skin remained rarely moist, Jacob score was stable at 14, and skin interventions focused on promoting mobility and activity; no changes in skin integrity were noted during the shift. Achieve optimal cardiovascular function by discharge or maintain baseline function: Atrial fibrillation with rapid ventricular response was present early in the shift, but after synchronized electrical cardioversion, normal sinus rhythm was achieved and maintained; blood pressure and heart rate fluctuated but stabilized post-procedure, and rest was promoted throughout the shift. 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 Pt still has CBI Expected Discharge Date Apr 24, 2025 Plan Discharge To: [facility] Facility (04/23/251209) Plan Discharge To - Alternate: Medicaid certified nursing facility (04/23/251209) Referrals Status: Facility Referrals - Accepted Follow-up on Referrals Sent: No (04/23/251209) Preferred Pharmacy: [facility] #[id number] [address] [facility] [address] Patient / Family Communications: Patient/Family Communications: Plan Discharge To Update (04/23/251209) Resources Provided Transportation Plan: Has discharge transport been arranged?: No (04/23/251209) Follow Up Appointments Scheduled Nahomi Kruegr RN NA EXPERT * Care Plan - Thuan Alfonso GN - 04/22/2025 5:20 PM CST Shift Summary Urinalysis remained abnormal and cefTRIAXone was administered, with blood cultures pending and no new symptoms documented. High fall risk interventions were maintained and no falls or injuries occurred. Skin integrity was preserved with regular repositioning and no new breakdowns noted. Cardiovascular function was challenged by persistent arrhythmia and low ejection fraction, with multiple medication adjustments and monitoring. Mobility remained very limited, but repositioning and mobility promotion were performed. Overall, the shift was marked by ongoing cardiovascular instability, infection risk management, andconsistent implementation of safety and skin integrity interventions. Infection Risk/Actual: Infection prevention, control, or resolution by discharge: Urinalysis throughout the shift revealed persistent abnormal findings, including leukocyte esterase, blood, and bacteria, but no complaints or new symptoms were documented; cefTRIAXone was administered in the morning,and blood cultures are in progress with no preliminary positive results reported. Catheter care wasmaintained with securement and continuous irrigation, and no new signs were documented during the shift. Safety/Fall: Absence of fall, injury, harm during hospitalization: High fall risk interventions, including use of a low low bed and regular safety checks, [facility] and no falls or injuries were documented. Maintain skin integrity and/or promote wound healing by discharge: Skin integrity was preserved with regular repositioning and no redness noted on skin check except perirectal area, and Jacob scoresremained stable. Achieve optimal cardiovascular function by discharge or maintain baseline function: Cardiovascular status was characterized by persistent atrial fibrillation with rapid ventricular response, fluctuating blood pressures, and a low ejection fraction on echocardiogram; heparin and potassium chloride were administered, and anti-Xa levels remained below therapeutic range. Achieve optimal musculoskeletal function by discharge or maintain baseline function: Mobility remained very limited and bedfast, but regular repositioning and mobility promotion interventions were performed. 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 Pt plans to return to [facility] Expected Discharge Date Apr 24, 2025 Plan Discharge To: Penitentiary Facility (04/22/251347) Plan Discharge To - Alternate: Medicaid certified nursing facility (04/22/251347) Referrals Status: Facility Referrals - Accepted Follow-up on Referrals Sent: No (04/22/251347) Preferred Pharmacy: [facility] #[id number] [place] [address] AT [facility] [address] Patient / Family Communications: Patient/Family Communications: Plan Discharge To Update (04/22/251347) Resources Provided Transportation Plan: Has discharge transport been arranged?: No (04/22/251347) Follow Up Appointments Scheduled Nahomi Kruger RN NA EXPERT * Care Plan - Asmita Walker RCP - 04/21/2025 2:45 AM CST NOC CPAP Note Is this the patient's device? Yes Adult Vent Non-Invasive: Adult Vent Non-Invasive: Nocturnal (04/21/25199) Device Asset ID# (If using facility equipment): Vent ID: Home Unit (04/21/25199) CPAP Daily Charge: NA Device Name: Vent Type: Home Unit (04/21/25199) Device Settings: Delivery Mode: Home (04/21/25199) CPAP (cm H2O): (Home Settings) (04/21/25199) Interface: Delivery Method: Home (04/21/25199) Mask/Prong Size:Mask/Prong Size: Home Mask (04/21/25199) Oxygen Flow (if applicable): Oxygen Therapy Flow (L/min): 2 (04/21/25199) Is the patient wearing the device? Yes Asmita Walker RCP NA EXPERT * Care Plan - Monique Moreno MSW - 04/20/2025 11:28 AM CST Care Management Initial Assessment Initial Discharge Planning Assessment completed. Discussed Care Management's role and Discharge planning. Plan Discharge To: Home or Self Care Does the patient have family and/or a caregiver that is willing, able and available to assist if needed? Yes - Name/Relation:staff at [facility] Comments: call to patient on his cell phone # [phone]. He states he is from [facility] [place] [place]. Return referral sent. We will need PT/OT orders (have asked nursing in secure chat). Patient states he would like a return referral sent but wants to think about that decision to return. Patient Discharge Planning Goal: to consider returning to [facility] Patient will potentially discharge to a SNF/NH? Returning Care Management visited with: patient via phone. Prior to admission[place] [facility] [place] Prior to admission, living arrangements: group setting. Prior to admission, patient's functional level:requires assistance; uses standard walker and wheelchair for mobility; needs assistance with iADLs: meal preparation, shopping, running errands, and medication management Community Ambulator: yes Prior to admission, the patient has the following DME? Yes shower chair, standard walker, and grab bars, slide board Services in the home/community: none Receives hemodialysis? No Emergency contact(s): No emergency contact information on file. Prescription coverage: yes Preferred Pharmacy verified: Data Unavailable Insurance coverage verified: Payor: [employer] MEDICARE ADVANTAGE / Plan: [facility] PPO SNP MCR / Product Type: PPO / Secondary Insurance:MEDICAID Medicaid Status: no spend down Has VA Benefits: no Employment Status: retired PCP verified as: No primary care provider on file. He states he sees Dr. Mancia for cardio but doesnot have a primary care provider at this time. Patient has had a stay at an acute care hospital in the last 30 days. Recent Falls?: Last Known Fall: No falls Plan for transportation at discharge: TBD Care Management contact information provided. Care Management will continue to follow and assist asneeded. NA EXPERT documented in this encounter Plan of Treatment Scheduled Procedures Name Priority Associated Diagnoses Date/Ti me CYSTOURETHROSCOPY BLADDER FULGURATION n/a 04/23/2025 1:40 PM BANANA EXPERT Scheduled Referrals Name Type Priority Associated Diagnoses Order Schedule AMB REFERRAL TO CARDIAC ELECTROPHYSIOLOGY Outpatient Referral Routine Atrial fibrillation with rapid ventricular response (CMS/HCC) Ordered: 04/29/2025 AMB REFERRAL TO FAMILY PRACTICE Outpatient Referral Routine Atrial fibrillation with rapid ventricular response (CMS/HCC) Ordered: 04/29/2025 documented as of this encounter Procedures Procedure Name Priority Date/Time Associated Diagnosis Comments TELEMETRY REPORT 04/30/2025 2:09 AM BANANA EXPERT HEMOGLOBIN AND HEMATOCRIT Routine 04/29/2025 11:43 AM BANANA EXPERT UNFRACTIONATED HEPARIN ACTIVITY Timed Study 04/29/2025 4:34 AM BANANA EXPERT CBC WITH DIFFERENTIAL Routine 04/29/2025 4:34 AM BANANA EXPERT PTT Routine 04/29/2025 4:34 AM BANANA EXPERT MAGNESIUM LEVEL Routine 04/29/2025 4:34 AM BANANA EXPERT BASIC METABOLIC PANEL Routine 04/29/2025 4:34 AM BANANA EXPERT HEMOGLOBIN AND HEMATOCRIT Routine 04/28/2025 8:43 PM BANANA EXPERT HEMOGLOBIN AND HEMATOCRIT Routine 04/28/2025 1:21 PM BANANA EXPERT UNFRACTIONATED HEPARIN ACTIVITY Timed Study 04/28/2025 4:55 AM BANANA EXPERT CBC WITH DIFFERENTIAL Routine 04/28/2025 4:55 AM BANANA EXPERT MAGNESIUM LEVEL Routine 04/28/2025 4:55 AM BANANA EXPERT BASIC METABOLIC PANEL Routine 04/28/2025 4:55 AM BANANA EXPERT TROPONIN 6 HR, 5TH GEN Timed Study 12:09 AM BANANA EXPERT HEMOGLOBIN AND HEMATOCRIT Routine 04/28/2025 12:09 AM BANANA EXPERT TROPONIN 2 HR, 5TH GEN Timed Study 8:25 PM BANANA EXPERT TROPONIN BASELINE, 5TH GEN Stat 04/27/2025 6:16 PM BANANA EXPERT HEMOGLOBIN AND HEMATOCRIT Routine 04/27/2025 6:16 PM BANANA EXPERT EKG 12-LEAD Stat 04/27/2025 5:53 PM BANANA EXPERT HEMOGLOBIN AND HEMATOCRIT Routine 04/27/2025 3:39 PM BANANA EXPERT POC GLUCOSE Routine 04/27/2025 9:42 AM BANANA EXPERT UNFRACTIONATED HEPARIN ACTIVITY Timed Study 04/27/2025 5:28 AM BANANA EXPERT CBC WITH DIFFERENTIAL Routine 04/27/2025 5:28 AM BANANA EXPERT MAGNESIUM LEVEL Routine 04/27/2025 5:28 AM BANANA EXPERT BASIC METABOLIC PANEL Routine 04/27/2025 5:28 AM BANANA EXPERT HEMOGLOBIN AND HEMATOCRIT Routine 04/27/2025 12:23 AM BANANA EXPERT UNFRACTIONATED HEPARIN ACTIVITY Timed Study 04/27/2025 12:22 AM BANANA EXPERT HEMOGLOBIN AND HEMATOCRIT Routine 04/26/2025 5:58 PM BANANA EXPERT UNFRACTIONATED HEPARIN ACTIVITY Timed Study 04/26/2025 5:57 PM BANANA EXPERT UNFRACTIONATED HEPARIN ACTIVITY Timed Study 04/26/2025 11:40 AM BANANA EXPERT HEMOGLOBIN AND HEMATOCRIT Routine 04/26/2025 11:40 AM BANANA EXPERT UNFRACTIONATED HEPARIN ACTIVITY Timed Study 04/26/2025 4:56 AM BANANA EXPERT CBC WITH DIFFERENTIAL Routine 04/26/2025 4:56 AM BANANA EXPERT MAGNESIUM LEVEL Routine 04/26/2025 4:56 AM BANANA EXPERT BASIC METABOLIC PANEL Routine 04/26/2025 4:56 AM BANANA EXPERT EKG 12-LEAD Stat 04/26/2025 4:01 AM BANANA EXPERT HEMOGLOBIN AND HEMATOCRIT Routine 04/26/2025 12:35 AM BANANA EXPERT UNFRACTIONATED HEPARIN ACTIVITY Timed Study 04/25/2025 5:09 PM BANANA EXPERT HEMOGLOBIN AND HEMATOCRIT Routine 04/25/2025 5:09 PM BANANA EXPERT EKG 12-LEAD Stat 04/25/2025 11:36 AM BANANA EXPERT UNFRACTIONATED HEPARIN ACTIVITY Timed Study 04/25/2025 11:11 AM BANANA EXPERT HEMOGLOBIN AND HEMATOCRIT Routine 04/25/2025 11:11 AM BANANA EXPERT UNFRACTIONATED HEPARIN ACTIVITY Timed Study 04/25/2025 4:40 AM BANANA EXPERT CBC WITH DIFFERENTIAL Routine 04/25/2025 4:40 AM BANANA EXPERT MAGNESIUM LEVEL Routine 04/25/2025 4:40 AM BANANA EXPERT BASIC METABOLIC PANEL Routine 04/25/2025 4:40 AM BANANA EXPERT HEMOGLOBIN AND HEMATOCRIT Routine 04/24/2025 4:32 PM BANANA EXPERT PT EVAL AND TREAT Pending Discharge 04/24/2025 2:09 PM BANANA EXPERT UNFRACTIONATED HEPARIN ACTIVITY Timed Study 04/24/2025 10:35 AM BANANA EXPERT EKG 12-LEAD Pending Discharge 04/24/2025 8:53 AM BANANA EXPERT HEMOGLOBIN AND HEMATOCRIT Routine 04/24/2025 5:10 AM BANANA EXPERT MAGNESIUM LEVEL Routine 04/24/2025 5:10 AM BANANA EXPERT BASIC METABOLIC PANEL Routine 04/24/2025 5:10 AM BANANA EXPERT UNFRACTIONATED HEPARIN ACTIVITY Timed Study 04/24/2025 2:44 AM BANANA EXPERT HEMOGLOBIN AND HEMATOCRIT Routine 04/24/2025 12:39 AM BANANA EXPERT HEMOGLOBIN AND HEMATOCRIT Routine 04/23/2025 8:40 PM BANANA EXPERT UNFRACTIONATED HEPARIN ACTIVITY Timed Study 04/23/2025 7:42 PM BANANA EXPERT UNFRACTIONATED HEPARIN ACTIVITY Timed Study 04/23/2025 1:24 PM BANANA EXPERT HEMOGLOBIN AND HEMATOCRIT Routine 04/23/2025 1:24 PM BANANA EXPERT ECHO TRANSESOPHAGEAL WITH CARDIOVERSION Routine 04/23/2025 10:00 AM BANANA EXPERT UNFRACTIONATED HEPARIN ACTIVITY Timed Study 04/23/2025 6:11 AM BANANA EXPERT HEMOGLOBIN AND HEMATOCRIT Routine 04/23/2025 6:11 AM BANANA EXPERT CBC WITH DIFFERENTIAL Routine 04/23/2025 3:12 AM BANANA EXPERT MAGNESIUM LEVEL Routine 04/23/2025 3:12 AM BANANA EXPERT BASIC METABOLIC PANEL Routine 04/23/2025 3:12 AM BANANA EXPERT UNFRACTIONATED HEPARIN ACTIVITY Timed Study 04/22/2025 11:22 PM BANANA EXPERT HEMOGLOBIN AND HEMATOCRIT Routine 04/22/2025 11:22 PM BANANA EXPERT POC GLUCOSE Routine 04/22/2025 9:52 PM BANANA EXPERT HEMOGLOBIN AND HEMATOCRIT Routine 04/22/2025 9:24 PM BANANA EXPERT UNFRACTIONATED HEPARIN ACTIVITY Timed Study 04/22/2025 2:30 PM BANANA EXPERT HEMOGLOBIN AND HEMATOCRIT Routine 04/22/2025 2:30 PM BANANA EXPERT POTASSIUM LEVEL Timed Study 04/22/2025 2:30 PM BANANA EXPERT US RENAL Routine 04/22/2025 1:19 PM BANANA EXPERT EXTRA TUBE (URINE MELENDEZ) Routine 04/22/2025 1:04 PM BANANA EXPERT UREA NITROGEN, RANDOM URINE Routine 04/22/2025 1:04 PM BANANA EXPERT SODIUM, RANDOM URINE Routine 04/22/2025 1:04 PM BANANA EXPERT PROTEIN , RANDOM URINE Routine 1:04 PM BANANA EXPERT URINALYSIS W/REFLEX MICROSCOPIC Routine 04/22/2025 1:04 PM BANANA EXPERT ECHOCARDIOGRAM W/ CONTRAST AGENT Routine 04/22/2025 10:37 AM BANANA EXPERT CBC WITH DIFFERENTIAL Routine 04/22/2025 4:45 AM BANANA EXPERT MAGNESIUM LEVEL Routine 04/22/2025 4:45 AM BANANA EXPERT BASIC METABOLIC PANEL Routine 04/22/2025 4:45 AM BANANA EXPERT HEMOGLOBIN AND HEMATOCRIT Routine 04/22/2025 12:01 AM BANANA EXPERT HEMOGLOBIN AND HEMATOCRIT Routine 04/21/2025 6:13 PM BANANA EXPERT HEMOGLOBIN AND HEMATOCRIT Routine 04/21/2025 12:49 PM BANANA EXPERT US VENOUS DOPPLER LEG BILATERAL Routine 04/21/2025 12:05 PM BANANA EXPERT CBC WITH DIFFERENTIAL Routine 04/21/2025 4:39 AM BANANA EXPERT PTH INTACT Routine 04/21/2025 4:39 AM BANANA EXPERT MAGNESIUM LEVEL Routine 04/21/2025 4:39 AM BANANA EXPERT BASIC METABOLIC PANEL Routine 04/21/2025 4:39 AM BANANA EXPERT HEMOGLOBIN AND HEMATOCRIT Routine 04/20/2025 11:21 PM BANANA EXPERT HEMOGLOBIN AND HEMATOCRIT Routine 04/20/2025 6:29 PM BANANA EXPERT UNFRACTIONATED HEPARIN ACTIVITY Timed Study 04/20/2025 1:58 PM BANANA EXPERT IRON, TIBC, AND PERCENT SATURATION Routine 04/20/2025 1:58 PM BANANA EXPERT PTT Routine 04/20/2025 1:58 PM BANANA EXPERT TROPONIN Routine 04/20/2025 1:58 PM BANANA EXPERT FERRITIN Routine 04/20/2025 1:58 PM BANANA EXPERT BASIC METABOLIC PANEL Routine 04/20/2025 1:58 PM BANANA EXPERT OT EVAL AND TREAT Routine 04/20/2025 11:31 AM BANANA EXPERT PT EVAL AND TREAT Routine 04/20/2025 11:31 AM BANANA EXPERT OT EVAL AND TREAT Routine 04/20/2025 11:30 AM BANANA EXPERT PT EVAL AND TREAT Routine 04/20/2025 11:30 AM BANANA EXPERT BLOOD CULTURE Stat 04/20/2025 10:53 AM BANANA EXPERT BLOOD CULTURE Stat 04/20/2025 10:53 AM BANANA EXPERT HEMOGLOBIN AND HEMATOCRIT Routine 04/20/2025 10:52 AM BANANA EXPERT BLOOD CULTURE Routine 04/20/2025 10:33 AM BANANA EXPERT BLOOD CULTURE Routine 04/20/2025 10:33 AM BANANA EXPERT TROPONIN 6 HR, 5TH GEN Timed Study 7:09 AM BANANA EXPERT VITAMIN D 25 HYDROXY Routine 04/20/2025 7:09 AM BANANA EXPERT LACTIC ACID Stat 04/20/2025 2:39 AM BANANA EXPERT EKG 12-LEAD Routine 04/20/2025 2:30 AM BANANA EXPERT TROPONIN BASELINE, 5TH GEN Stat 04/20/2025 2:29 AM BANANA EXPERT CBC WITH DIFFERENTIAL Routine 04/20/2025 2:29 AM BANANA EXPERT TSH Routine 04/20/2025 2:29 AM BANANA EXPERT T4 FREE Routine 04/20/2025 2:29 AM BANANA EXPERT MAGNESIUM LEVEL Routine 04/20/2025 2:29 AM BANANA EXPERT COMPREHENSIVE METABOLIC PANEL Routine 04/20/2025 2:29 AM BANANA EXPERT documented in this encounter Results * TELEMETRY REPORT (04/30/2025 2:09 AM BANANA EXPERT) us Provider Scanning ECG ORDERABLES Final Result * (ABNORMAL) HEMOGLOBIN AND HEMATOCRIT (04/29/2025 11:43 AM BANANA EXPERT) [facility] HEMOGLOBIN 9.2(L) 14.0 - 18.0 g/dL 04/29/2025 11:57 AM BANANA EXPERT [facility] HEMATOCRIT 30.3(L) 41.0 - 53.0 % 04/29/2025 11:57 AM BANANA EXPERT [facility] Blood Venipuncture / Unknown 04/29/2025 11:43 AM BANANA EXPERT 04/29/2025 11:52 AM BANANA EXPERT Rishabh Reed MD HEMATOLOGY ORDERABLES Cristy l Result [facility] CLIA # [id number] [address] [id number] * (ABNORMAL) PTT (04/29/2025 4:34 AM BANANA EXPERT) [facility] PTT 39.3(H) 24.8 - 37.2 seconds 04/29/2025 6:04 AM BANANA EXPERT [facility] Blood Venipuncture / Unknown 04/29/2025 4:34 AM BANANA EXPERT 04/29/2025 5:41 AM BANANA EXPERT Narrative [facility] - 04/29/2025 6:04 AM BANANA EXPERT Therapeutic Range: Hi-level PE/DVT heparin protocol 80.1 - 95.0 sec Lo-level PE/DVT heparin protocol 70.1 - 85.0 sec Cardiac Heparin Protocol 70.1 - 100.0 sec Carlos Zendejas MD HEMATOLOGY ORDERABLES Fi nal Result [facility] CLIA # [id number] [address] [id number] * MAGNESIUM LEVEL (04/29/2025 4:34 AM BANANA EXPERT) [facility] MAGNESIUM 2.0 1.6 - 2.4 mg/dL 04/29/2025 6:13 AM [facility] Blood Venipuncture / Unknown 04/29/2025 4:34 AM BANANA EXPERT 04/29/2025 5:41 AM BANANA EXPERT Rishabh Reed MD CHEMISTRY ORDERABLES Final Result [facility] CLIA # [id number] [address] [address] * (ABNORMAL) BASIC METABOLIC PANEL (04/29/2025 4:34 AM BANANA EXPERT) Pathologist [facility] SODIUM 132(L) 136 - 145 mmol/L 04/29/2025 6:13 AM [facility] POTASSIUM 3.7 3.5 - 5.1 mmol/L 04/29/2025 6:13 AM [facility] CHLORIDE 97(L) 98 - 107 mmol/L 04/29/2025 6:13 AM [facility] CO2 22 22 - 29 mmol/L 04/29/2025 6:13 AM [facility] CALCIUM 12.1(H) 8.8 - 10.2 mg/dL 04/29/2025 6:13 AM [facility] BUN 44(H) 8 - 23 mg/dL 04/29/2025 6:13 AM [facility] CREATININE 1.47(H) 0.67 - 1.17 mg/dL 04/29/2025 6:13 AM [facility] GLUCOSE 90 74 - 99 mg/dL 04/29/2025 6:13 AM [facility] GFR 52(L) >=60 mL/min/1. 73 sq meter 04/29/2025 6:13 AM [facility] Comment:eGFR calculated with 2020 CKD-EPI equation. Vegetarian diet, extremely high or low muscle mass, and may affect results. Cystatin C with Glomerular Filtration Rate is a suitable alternative for these patients. ANION GAP 13 9 - 20 mmol/L 04/29/2025 6:13 AM [facility] Blood Venipuncture / Unknown 04/29/2025 4:34 AM BANANA EXPERT 04/29/2025 5:41 AM BANANA EXPERT us Rishabh Reed MD CHEMISTRY ORDERABLES Final Result [facility] CLIA # [id number] [address] [address] [place] [address] * (ABNORMAL) CBC WITH DIFFERENTIAL (04/29/2025 4:34 AM BANANA EXPERT) WBC 9.3 4.8 - 10.8 K/uL 04/29/2025 5:51 AM [facility] RBC 3.49(L) 4.60 - 6.20 M/uL 04/29/2025 5:51 AM [facility] HEMOGLOBIN 9.1(L) 14.0 - 18.0 g/dL 04/29/2025 5:51 AM [facility] HEMATOCRIT 30.1(L) 41.0 - 53.0 % 04/29/2025 5:51 AM [facility] MCV 86.2 84.0 - 103.0 fL 04/29/2025 5:51 AM [facility] MCH 26.1(L) 27.0 - 34.0 pg 04/29/2025 5:51 AM [facility] MCHC 30.2 30.0 - 35.0 g/dL 04/29/2025 5:51 AM [facility] PLATELETS 213 140 - 440 K/uL 04/29/2025 5:51 AM [facility] MPV 9.7 8.9 - 12.8 fL 04/29/2025 5:51 AM [facility] [employer] Party [facility] RDW 19.9(H) 11.0 - 14.5 % 04/29/2025 5:51 AM [facility] RDW-STDEV 60.8(H) 37.0 - 54.0 fL 04/29/2025 5:51 AM [facility] NEUTROPHILS 81(H) 42 - 75 % 04/29/2025 5:51 AM [facility] LYMPHOCYTES 9(L) 24 - 44 % 04/29/2025 5:51 AM [facility] MONOCYTES 6 2 - 10 % 04/29/2025 5:51 AM [facility] EOSINOPHILS 2 0 - 7 % 04/29/2025 5:51 AM [facility] BASOPHILS 0 0 - 1 % 04/29/2025 5:51 AM [facility] IMMATURE GRANULOCYTES 2 0 - 2 % 04/29/2025 5:51 AM [facility] NEUTROPHIL ABSOLUTE 7.50 2.00 - 8.00 K/uL 04/29/2025 5:51 AM [facility] LYMPHOCYTE ABSOLUTE 0.82(L) 1.20 - 4.00 K/uL 04/29/2025 5:51 AM [facility] MONOCYTE ABSOLUTE 0.60 0.10 - 0.60 K/uL 04/29/2025 5:51 AM [facility] EOSINOPHIL ABSOLUTE 0.17 0.00 - 0.70 K/uL 04/29/2025 5:51 AM [facility] BASOPHILS ABSOLUTE 0.04 0.00 - 0.20 K/uL 04/29/2025 5:51 AM [facility] IMMATURE GRANULOCYTES ABSOLUTE 0.18(H) 0.00 - 0.10 K/uL 04/29/2025 5:51 AM [facility] SMEAR REVIEWED: NA - Not Applicable 04/29/2025 5:51 AM [facility] Blood Venipuncture / Unknown 04/29/2025 4:34 AM BANANA EXPERT 04/29/2025 5:42 AM BANANA EXPERT Rishabh Reed MD HEMATOLOGY ORDERABLES Cristy francois Result [facility] CLIA # [id number] [address] [address] [place] [address] * UNFRACTIONATED HEPARIN MONITORING (04/29/2025 4:34 AM BANANA EXPERT) [facility] ANTI-XA UNFRAC HEP 04/29/2025 5:58 AM BANANA EXPERT [facility] Comment:Patient receiving an ti-coagulation therapy (eliquis/apixaban), test invalid. Redraw test after anti-coagulation therapy discontinued (5 days) if test is still indicated. This test has not been charged. Blood Venipuncture / Unknown 04/29/2025 4:34 AM BANANA EXPERT 04/29/2025 5:41 AM BANANA EXPERT Carlos Zendejas MD HEMATOLOGY ORDERABLES Fi nal Result Performing Organization Address [facility] de Phone Number [facility] CLIA # [id number] [address] [address] [place] [address] * (ABNORMAL) HEMOGLOBIN AND HEMATOCRIT (04/28/2025 8:43 PM BANANA EXPERT) [facility] HEMOGLOBIN 9.2(L) 14.0 - 18.0 g/dL 04/28/2025 9:18 PM BANANA EXPERT [facility] HEMATOCRIT 29.5(L) 41.0 - 53.0 % 04/28/2025 9:18 PM BANANA EXPERT [facility] Blood Venipuncture / Unknown 04/28/2025 8:43 PM BANANA EXPERT 04/28/2025 9:13 PM BANANA EXPERT Rishabh Reed MD HEMATOLOGY ORDERABLES Cristy l Result Performing Organization Address [facility] Co de Phone Number [facility] CLIA # [id number] [address] [place] [address] * (ABNORMAL) HEMOGLOBIN AND HEMATOCRIT (04/28/2025 1:21 PM BANANA EXPERT) Pathologist [facility] HEMOGLOBIN 8.7(L) 14.0 - 18.0 g/dL 04/28/2025 1:34 PM BANANA EXPERT [facility] HEMATOCRIT 28.2(L) 41.0 - 53.0 % 04/28/2025 1:34 PM BANANA EXPERT [facility] Blood Venipuncture / Unknown 04/28/2025 1:21 PM BANANA EXPERT 04/28/2025 1:30 PM BANANA EXPERT Rishabh Reed MD HEMATOLOGY ORDERABLES Cristy l Result Performing Organization Address City/[facility]/ZIP Co de Phone Number [facility] CLIA # [id number] [address] [address] * (ABNORMAL) MAGNESIUM LEVEL (04/28/2025 4:55 AM BANANA EXPERT) [facility] MAGNESIUM 1.5(L) 1.6 - 2.4 mg/dL 04/28/2025 5:36 AM BANANA EXPERT [facility] Blood Venipuncture / Unknown 04/28/2025 4:55 AM BANANA EXPERT 04/28/2025 4:59 AM BANANA EXPERT Rishabh Reed MD CHEMISTRY ORDERABLES Final Result [facility] CLIA # [id number] [address] [address] [place] [address] * (ABNORMAL) BASIC METABOLIC PANEL (04/28/2025 4:55 AM BANANA EXPERT) Pathologist [facility] SODIUM 132(L) 136 - 145 mmol/L 04/28/2025 5:36 AM BANANA EXPERT [facility] POTASSIUM 4.1 3.5 - 5.1 mmol/L 04/28/2025 5:36 AM [facility] CHLORIDE 96(L) 98 - 107 mmol/L 04/28/2025 5:36 AM [facility] CO2 20(L) 22 - 29 mmol/L 04/28/2025 5:36 AM [facility] CALCIUM 10.8(H) 8.8 - 10.2 mg/dL 04/28/2025 5:36 AM [facility] BUN 42(H) 8 - 23 mg/dL 04/28/2025 5:36 AM [facility] CREATININE 1.39(H) 0.67 - 1.17 mg/dL 04/28/2025 5:36 AM [facility] GLUCOSE 94 74 - 99 mg/dL 04/28/2025 5:36 AM [facility] GFR 55(L) >=60 mL/min/1. 73 sq meter 04/28/2025 5:36 AM [facility] Comment:eGFR calculated with 2020 CKD-EPI equation. Vegetarian diet, extremely high or low muscle mass, and may affect results. Cystatin C with Glomerular Filtration Rate is a suitable alternative for these patients. ANION GAP 16 9 - 20 mmol/L 04/28/2025 5:36 AM [facility] Blood Venipuncture / Unknown 04/28/2025 4:55 AM BANANA EXPERT 04/28/2025 4:59 AM BANANA EXPERT us Rishabh Reed MD CHEMISTRY ORDERABLES Final Result [facility] CLIA # [id number] [address] [place] [address] * (ABNORMAL) CBC WITH DIFFERENTIAL (04/28/2025 4:55 AM BANANA EXPERT) [facility] WBC 9.0 4.8 - 10.8 K/uL 04/28/2025 5:08 AM [facility] RBC 3.08(L) 4.60 - 6.20 M/uL 04/28/2025 5:08 AM [facility] HEMOGLOBIN 8.3(L) 14.0 - 18.0 g/dL 04/28/2025 5:08 AM [facility] HEMATOCRIT 27.1(L) 41.0 - 53.0 % 04/28/2025 5:08 AM [facility] MCV 88.0 84.0 - 103.0 fL 04/28/2025 5:08 AM [facility] MCH 26.9(L) 27.0 - 34.0 pg 04/28/2025 5:08 AM [facility] MCHC 30.6 30.0 - 35.0 g/dL 04/28/2025 5:08 AM [facility] PLATELETS 186 140 - 440 K/uL 04/28/2025 5:08 AM [facility] MPV 9.5 8.9 - 12.8 fL 04/28/2025 5:08 AM [facility] RDW 19.2(H) 11.0 - 14.5 % 04/28/2025 5:08 AM [facility] RDW-STDEV 61.2(H) 37.0 - 54.0 fL 04/28/2025 5:08 AM [facility] NEUTROPHILS 87(H) 42 - 75 % 04/28/2025 5:08 AM [facility] LYMPHOCYTES 7(L) 24 - 44 % 04/28/2025 5:08 AM [facility] [employer] [facility] MONOCYTES 4 2 - 10 % 04/28/2025 5:08 AM [facility] EOSINOPHILS 0 0 - 7 % 04/28/2025 5:08 AM [facility] [employer] [facility] BASOPHILS 0 0 - 1 % 04/28/2025 5:08 AM [facility] IMMATURE GRANULOCYTES 2 0 - 2 % 04/28/2025 5:08 AM [facility] NEUTROPHIL ABSOLUTE 7.76 2.00 - 8.00 K/uL 04/28/2025 5:08 AM [facility] LYMPHOCYTE ABSOLUTE 0.65(L) 1.20 - 4.00 K/uL 04/28/2025 5:08 AM [facility] MONOCYTE ABSOLUTE 0.38 0.10 - 0.60 K/uL 04/28/2025 5:08 AM [facility] EOSINOPHIL ABSOLUTE 0.01 0.00 - 0.70 K/uL 04/28/2025 5:08 AM [facility] BASOPHILS ABSOLUTE 0.02 0.00 - 0.20 K/uL 04/28/2025 5:08 AM [facility] IMMATURE GRANULOCYTES ABSOLUTE 0.16(H) 0.00 - 0.10 K/uL 04/28/2025 5:08 AM [facility] SMEAR REVIEWED: NN - No Action Needed 04/28/2025 5:08 AM [facility] Blood Venipuncture / Unknown 04/28/2025 4:55 AM BANANA EXPERT 04/28/2025 4:59 AM BANANA EXPERT us Rishabh Reed MD HEMATOLOGY ORDERABLES Cristy l Result [facility] CLIA # [id number] [address] [place] [address] * UNFRACTIONATED HEPARIN MONITORING (04/28/2025 4:55 AM BANANA EXPERT) Pathologist [facility] ANTI-XA UNFRAC HEP 0.42 See Interpretation IU/mL 04/28/2025 5:12 AM [facility] Blood Venipuncture / Unknown 04/28/2025 4:55 AM BANANA EXPERT 04/28/2025 4:59 AM BANANA EXPERT Narrative [facility] - 04/28/2025 5:12 AM BANANA EXPERT Therapeutic Range: PT/DVT Heparin Protocol 0.3 - 0.7 IU/ml Cardiac Heparin Protocol 0.3 - 0.6 IU/ml The reference range for this test is specific to the anticoagulant and is not appropriate for monitoring patients on a DOAC protocol. Rishabh Reed MD HEMATOLOGY ORDERABLES Cristy l Result Performing Organization Address [facility]/ZIP Co de Phone Number [facility] CLIA # [id number] [address] [address] * (ABNORMAL) HEMOGLOBIN AND HEMATOCRIT (04/28/2025 12:09 AM BANANA EXPERT) Pathologist [facility] HEMOGLOBIN 8.2(L) 14.0 - 18.0 g/dL 04/28/2025 12:19 AM BANANA EXPERT [facility] HEMATOCRIT 27.1(L) 41.0 - 53.0 % 04/28/2025 12:19 AM BANANA EXPERT [facility] Blood Venipuncture / Unknown 04/28/2025 12:09 AM BANANA EXPERT 04/28/2025 12:13 AM BANANA EXPERT Rishabh Reed MD HEMATOLOGY ORDERABLES Cristy l Result Performing Organization Address [facility] Co de Phone Number [facility] CLIA # [id number] [facility] [address] * (ABNORMAL) TROPONIN 6 HR, 5TH GEN (04/28/2025 12:09 AM BANANA EXPERT) Pathologist [facility] TROPONIN T, 6 HR 5TH GEN 74(H) <=15 ng/L 04/28/2025 12:49 AM BANANA EXPERT [facility] [employer] [facility] DELTA 6HR TROPONIN T 2 See Interp. 04/28/2025 12:49 AM BANANA EXPERT [facility] Blood Venipuncture / Unknown 04/28/2025 12:09 AM BANANA EXPERT 04/28/2025 12:17 AM BANANA EXPERT Narrative [facility] - 04/28/2025 12:49 AM BANANA EXPERT Troponin elevated. Delta indeterminate. Carlos Zendejas MD CHEMISTRY ORDERABLES Fin al Result Performing Organization Address City/[facility]/ZIP Co de Phone Number [facility] CLIA # [id number] [address] [place] [address] * (ABNORMAL) TROPONIN 2 HR, 5TH GEN (04/27/2025 8:25 PM BANANA EXPERT) TROPONIN T, 2 HR 5TH GEN 74(H) <=15 ng/L 04/27/2025 9:10 PM BANANA EXPERT [facility] [employer] [facility] DELTA 2HR TROPONIN T 2 See Interp. 04/27/2025 9:10 PM BANANA EXPERT [facility] Blood Venipuncture / Unknown 04/27/2025 8:25 PM BANANA EXPERT 04/27/2025 8:38 PM BANANA EXPERT [facility] [employer] [facility] - 04/27/2025 9:10 PM BANANA EXPERT Troponin elevated. Delta not changing. Carlos Zendejas MD CHEMISTRY ORDERABLES Fin al Result Performing Organization Address [facility]/ZIP Co de Phone Number [facility] CLIA # [id number] [address] [place] [address] * (ABNORMAL) TROPONIN BASELINE, 5TH GEN (04/27/2025 6:16 PM BANANA EXPERT) TROPONIN T, BASELINE 5TH GEN 72(H) <=15 ng/L 04/27/2025 7:19 PM BANANA EXPERT [facility] [employer] [facility] Blood Venipuncture / Unknown 04/27/2025 6:16 PM BANANA EXPERT 04/27/2025 6:37 PM BANANA EXPERT [facility] [employer] [facility] - 04/27/2025 7:19 PM BANANA EXPERT Troponin elevated. Carlos Zendejas MD CHEMISTRY ORDERABLES Fin al Result [facility] [employer] [facility] CLIA # [id number] [address] [place] [address] * (ABNORMAL) HEMOGLOBIN AND HEMATOCRIT (04/27/2025 6:16 PM BANANA EXPERT) HEMOGLOBIN 8.8(L) 14.0 - 18.0 g/dL 04/27/2025 6:48 PM BANANA EXPERT [facility] HEMATOCRIT 28.9(L) 41.0 - 53.0 % 04/27/2025 6:48 PM BANANA EXPERT [facility] Blood Venipuncture / Unknown 04/27/2025 6:16 PM BANANA EXPERT 04/27/2025 6:37 PM BANANA EXPERT us Rishabh Reed MD HEMATOLOGY ORDERABLES Cristy alessandro Result [facility] CLIA # [id number] [address] [place] [address] * EKG 12-LEAD (04/27/2025 5:53 PM BANANA EXPERT) 04/27/2025 5:53 PM BANANA EXPERT Narrative INTERFACE SYSTEM - 04/28/2025 1:34 PM BANANA EXPERT [address] [address] Test Date: 2025-04-27 Pat Name: KRISTOPHER LEBLANC Department: 12 Room: [address] [place] [address] Gender: 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: [id number] : 1958-02-28 Requested By: Order Number: [id number] Reading MD: Tara Jiang Measurements Intervals [place] Rate: 94 P: 0 RI: 0 QRS: 81 QRSD: 180 T: 90 QT: 448 QTc: 560 Interpretive Statements Atrial fibrillation LBBB Abnormal ECG Electronically Signed On 04-28-2025 13:34:37 BANANA EXPERT by Tara Jiang Procedure Note Provider, Historical - 04/28/[address] [address] Test Date: 2025-04-27 Pat Name: KRISTOPHER LEBLANC Department: 12 Room: [address] [place] [address] Gender: 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 : 1958-02-28 Requested By: Order Number: [id number] Reading MD: Tara Jiang Measurements Intervals [place] Rate: 94 P: 0 RI: 0 QRS: 81 QRSD: 180 T: 90 QT: 448 QTc: 560 Interpretive Statements Atrial fibrillation LBBB Abnormal ECG Electronically Signed On 04-28-2025 13:34:37 BANANA EXPERT by Tara Jiang us Carlos Zendejas MD ECG ORDERABLES Final Re sult INTERFACE SYSTEM Refer to clinic/hospital department * (ABNORMAL) HEMOGLOBIN AND HEMATOCRIT (04/27/2025 3:39 PM BANANA EXPERT) Pathologist [facility] HEMOGLOBIN 9.2(L) 14.0 - 18.0 g/dL 04/27/2025 3:46 PM BANANA EXPERT [facility] HEMATOCRIT 30.8(L) 41.0 - 53.0 % 04/27/2025 3:46 PM BANANA EXPERT [facility] Blood Venipuncture / Unknown 04/27/2025 3:39 PM BANANA EXPERT 04/27/2025 3:43 PM BANANA EXPERT us Rishabh Reed MD HEMATOLOGY ORDERABLES Cristy l Result [facility] CLIA # [id number] [address] [place] [address] * POC GLUCOSE (04/27/2025 9:42 AM BANANA EXPERT) GLUCOSE POC 78 74 - 99 mg/dL 04/27/2025 9:42 AM BANANA EXPERT [facility] SPECIMEN SOURCE, GLUCOSE POC Capillary 04/27/2025 9:42 AM BANANA EXPERT [facility] Blood, whole 04/27/2025 9:42 AM BANANA EXPERT 04/27/2025 9:49 AM BANANA EXPERT Carlos Zendejas MD POINT OF CARE TESTING Fi nal Result Performing Organization Address [facility] Co de Phone Number [facility] CLIA # [id number] [address] [place], [place] [address] * UNFRACTIONATED HEPARIN MONITORING (04/27/2025 5:28 AM BANANA EXPERT) ANTI-XA UNFRAC HEP 0.40 See Interpretation IU/mL 04/27/2025 5:54 AM BANANA EXPERT [facility] Blood Venipuncture / Unknown 04/27/2025 5:28 AM BANANA EXPERT 04/27/2025 5:35 AM BANANA EXPERT Narrative [facility] - 04/27/2025 5:54 AM BANANA EXPERT Therapeutic Range: PT/DVT Heparin Protocol 0.3 - 0.7 IU/ml Cardiac Heparin Protocol 0.3 - 0.6 IU/ml The reference range for this test is specific to the anticoagulant and is not appropriate for monitoring patients on a DOAC protocol. Carlos Zendejas MD HEMATOLOGY ORDERABLES Fi nal Result Performing Organization Address [facility] de Phone Number [facility] CLIA # [id number] [address] [place] [address] * MAGNESIUM LEVEL (04/27/2025 5:28 AM BANANA EXPERT) MAGNESIUM 1.6 1.6 - 2.4 mg/dL 04/27/2025 6:14 AM BANANA EXPERT [facility] Blood Venipuncture / Unknown 04/27/2025 5:28 AM BANANA EXPERT 04/27/2025 5:36 AM BANANA EXPERT Rishabh Rede MD CHEMISTRY ORDERABLES Final Result [facility] CLIA # [id number] [address] [place] [address] * (ABNORMAL) BASIC METABOLIC PANEL (04/27/2025 5:28 AM BANANA EXPERT) SODIUM 137 136 - 145 mmol/L 04/27/2025 6:14 AM [facility] POTASSIUM 4.1 3.5 - 5.1 mmol/L 04/27/2025 6:14 AM [facility] CHLORIDE 101 98 - 107 mmol/L 04/27/2025 6:14 AM [facility] CO2 20(L) 22 - 29 mmol/L 04/27/2025 6:14 AM [facility] CALCIUM 11.0(H) 8.8 - 10.2 mg/dL 04/27/2025 6:14 AM [facility] BUN 45(H) 8 - 23 mg/dL 04/27/2025 6:14 AM [facility] CREATININE 1.48(H) 0.67 - 1.17 mg/dL 04/27/2025 6:14 AM [facility] GLUCOSE 75 74 - 99 mg/dL 04/27/2025 6:14 AM [facility] GFR 51(L) >=60 mL/min/1. 73 sq meter 04/27/2025 6:14 AM [facility] Comment:eGFR calculated with 2020 CKD-EPI equation. Vegetarian diet, extremely high or low muscle mass, and may affect results. Cystatin C with Glomerular Filtration Rate is a suitable alternative for these patients. ANION GAP 16 9 - 20 mmol/L 04/27/2025 6:14 AM [facility] Blood Venipuncture / Unknown 04/27/2025 5:28 AM BANANA EXPERT 04/27/2025 5:36 AM BANANA EXPERT Rishabh Reed MD CHEMISTRY ORDERABLES Final Result [facility] CLIA # [id number] [address] [address] [place] [address] * (ABNORMAL) CBC WITH DIFFERENTIAL (04/27/2025 5:28 AM BANANA EXPERT) [facility] WBC 6.8 4.8 - 10.8 K/uL 04/27/2025 5:42 AM [facility] RBC 3.15(L) 4.60 - 6.20 M/uL 04/27/2025 5:42 AM [facility] HEMOGLOBIN 8.2(L) 14.0 - 18.0 g/dL 04/27/2025 5:42 AM [facility] HEMATOCRIT 27.5(L) 41.0 - 53.0 % 04/27/2025 5:42 AM [facility] MCV 87.3 84.0 - 103.0 fL 04/27/2025 5:42 AM [facility] MCH 26.0(L) 27.0 - 34.0 pg 04/27/2025 5:42 AM [facility] MCHC 29.8(L) 30.0 - 35.0 g/dL 04/27/2025 5:42 AM [facility] PLATELETS 195 140 - 440 K/uL 04/27/2025 5:42 AM [facility] MPV 9.7 8.9 - 12.8 fL 04/27/2025 5:42 AM [facility] RDW 19.6(H) 11.0 - 14.5 % 04/27/2025 5:42 AM [facility] RDW-STDEV 62.0(H) 37.0 - 54.0 fL 04/27/2025 5:42 AM [facility] NEUTROPHILS 76(H) 42 - 75 % 04/27/2025 5:42 AM [facility] LYMPHOCYTES 13(L) 24 - 44 % 04/27/2025 5:42 AM [facility] MONOCYTES 5 2 - 10 % 04/27/2025 5:42 AM [facility] EOSINOPHILS 4 0 - 7 % 04/27/2025 5:42 AM [facility] BASOPHILS 0 0 - 1 % 04/27/2025 5:42 AM [facility] IMMATURE GRANULOCYTES 2 0 - 2 % 04/27/2025 5:42 AM [facility] NEUTROPHIL ABSOLUTE 5.20 2.00 - 8.00 K/uL 04/27/2025 5:42 AM [facility] LYMPHOCYTE ABSOLUTE 0.88(L) 1.20 - 4.00 K/uL 04/27/2025 5:42 AM [facility] MONOCYTE ABSOLUTE 0.35 0.10 - 0.60 K/uL 04/27/2025 5:42 AM [facility] EOSINOPHIL ABSOLUTE 0.24 0.00 - 0.70 K/uL 04/27/2025 5:42 AM [facility] BASOPHILS ABSOLUTE 0.03 0.00 - 0.20 K/uL 04/27/2025 5:42 AM [facility] IMMATURE GRANULOCYTES ABSOLUTE 0.13(H) 0.00 - 0.10 K/uL 04/27/2025 5:42 AM [facility] SMEAR REVIEWED: NA - Not Applicable 04/27/2025 5:42 AM [facility] Blood Venipuncture / Unknown 04/27/2025 5:28 AM BANANA EXPERT 04/27/2025 5:35 AM [facility] us Rishabh Reed MD HEMATOLOGY ORDERABLES Cristy l Result [facility] CLIA # [id number] [address] [address] [place], [place] [id number] * (ABNORMAL) HEMOGLOBIN AND HEMATOCRIT (04/27/2025 12:23 AM BANANA EXPERT) HEMOGLOBIN 8.3(L) 14.0 - 18.0 g/dL 04/27/2025 12:30 AM BANANA EXPERT [facility] HEMATOCRIT 26.9(L) 41.0 - 53.0 % 04/27/2025 12:30 AM [facility] Blood Venipuncture / Unknown 04/27/2025 12:23 AM BANANA EXPERT 04/27/2025 12:27 AM BANANA EXPERT Rishabh Reed MD HEMATOLOGY ORDERABLES Cristy l Result Performing Organization Address City/[facility] Co de Phone Number [facility] CLIA # [id number] [address] [id number] * UNFRACTIONATED HEPARIN MONITORING (04/27/2025 12:22 AM BANANA EXPERT) Pathologist [facility] ANTI-XA UNFRAC HEP 0.49 See Interpretation IU/mL 04/27/2025 12:41 AM BANANA EXPERT [facility] Blood Venipuncture / Unknown 04/27/2025 12:22 AM BANANA EXPERT 04/27/2025 12:27 AM BANANA EXPERT Narrative [facility] - 04/27/2025 12:41 AM BANANA EXPERT Therapeutic Range: PT/DVT Heparin Protocol 0.3 - 0.7 IU/ml Cardiac Heparin Protocol 0.3 - 0.6 IU/ml The reference range for this test is specific to the anticoagulant and is not appropriate for monitoring patients on a DOAC protocol. Carlos Zendejas MD HEMATOLOGY ORDERABLES Fi nal Result Performing Organization Address [facility] Co de Phone Number [facility] CLIA # [id number] [address] [phone] * (ABNORMAL) HEMOGLOBIN AND HEMATOCRIT (04/26/2025 5:58 PM BANANA EXPERT) HEMOGLOBIN 8.7(L) 14.0 - 18.0 g/dL 04/26/2025 6:11 PM BANANA EXPERT [facility] HEMATOCRIT 28.6(L) 41.0 - 53.0 % 04/26/2025 6:11 PM [facility] Blood Venipuncture / Unknown 04/26/2025 5:58 PM BANANA EXPERT 04/26/2025 6:07 PM BANANA EXPERT Rishabh Reed MD HEMATOLOGY ORDERABLES Cristy l Result Performing Organization Address [facility] Co de Phone Number [facility] CLIA # [id number] [address] [address] * UNFRACTIONATED HEPARIN MONITORING (04/26/2025 5:57 PM BANANA EXPERT) ANTI-XA UNFRAC HEP 0.18 See Interpretation IU/mL 04/26/2025 6:21 PM BANANA EXPERT [facility] Blood Venipuncture / Unknown 04/26/2025 5:57 PM BANANA EXPERT 04/26/2025 6:06 PM BANANA EXPERT Narrative [facility] - 04/26/2025 6:21 PM BANANA EXPERT Therapeutic Range: PT/DVT Heparin Protocol 0.3 - 0.7 IU/ml Cardiac Heparin Protocol 0.3 - 0.6 IU/ml The reference range for this test is specific to the anticoagulant and is not appropriate for monitoring patients on a DOAC protocol. Carlos Zendejas MD HEMATOLOGY ORDERABLES Fi nal Result Performing Organization Address [facility] Co de Phone Number [facility] CLIA # [id number] [address] [id number] * UNFRACTIONATED HEPARIN MONITORING (04/26/2025 11:40 AM BANANA EXPERT) [facility] ANTI-XA UNFRAC HEP 0.35 See Interpretation IU/mL 04/26/2025 12:10 PM BANANA EXPERT [facility] Blood Venipuncture / Unknown 04/26/2025 11:40 AM BANANA EXPERT 04/26/2025 11:50 AM BANANA EXPERT Narrative [facility] - 04/26/2025 12:10 PM BANANA EXPERT Therapeutic Range: PT/DVT Heparin Protocol 0.3 - 0.7 IU/ml Cardiac Heparin Protocol 0.3 - 0.6 IU/ml The reference range for this test is specific to the anticoagulant and is not appropriate for monitoring patients on a DOAC protocol. us Komal Crandall MD HEMATOLOGY ORDERABLES Final Resu lt Performing Organization Address City/[facility]/ZIP Co de Phone Number [facility] CLIA # [id number] [address] [phone] * (ABNORMAL) HEMOGLOBIN AND HEMATOCRIT (04/26/2025 11:40 AM BANANA EXPERT) HEMOGLOBIN 8.3(L) 14.0 - 18.0 g/dL 04/26/2025 11:58 AM BANANA EXPERT [facility] HEMATOCRIT 27.9(L) 41.0 - 53.0 % 04/26/2025 11:58 AM [facility] Blood Venipuncture / Unknown 04/26/2025 11:40 AM BANANA EXPERT 04/26/2025 11:50 AM BANANA EXPERT us Rishabh Reed MD HEMATOLOGY ORDERABLES Cristy l Result [facility] CLIA # [id number] [address] [address] [place] [address] * MAGNESIUM LEVEL (04/26/2025 4:56 AM BANANA EXPERT) MAGNESIUM 1.7 1.6 - 2.4 mg/dL 04/26/2025 5:47 AM BANANA EXPERT [facility] Blood Venipuncture / Unknown 04/26/2025 4:56 AM BANANA EXPERT 04/26/2025 5:02 AM BANANA EXPERT Rishabh Reed MD CHEMISTRY ORDERABLES Final Result [facility] CLIA # [id number] [address] [place] [id number] * (ABNORMAL) BASIC METABOLIC PANEL (04/26/2025 4:56 AM BANANA EXPERT) SODIUM 138 136 - 145 mmol/L 04/26/2025 5:47 AM [facility] POTASSIUM 4.1 3.5 - 5.1 mmol/L 04/26/2025 5:47 AM [facility] CHLORIDE 102 98 - 107 mmol/L 04/26/2025 5:47 AM [facility] CO2 19(L) 22 - 29 mmol/L 04/26/2025 5:47 AM [facility] CALCIUM 10.8(H) 8.8 - 10.2 mg/dL 04/26/2025 5:47 AM [facility] BUN 56(H) 8 - 23 mg/dL 04/26/2025 5:47 AM [facility] CREATININE 1.76(H) 0.67 - 1.17 mg/dL 04/26/2025 5:47 AM [facility] GLUCOSE 79 74 - 99 mg/dL 04/26/2025 5:47 AM [facility] GFR 42(L) >=60 mL/min/1. 73 sq meter 04/26/2025 5:47 AM [facility] Comment:eGFR calculated with 2020 CKD-EPI equation. Vegetarian diet, extremely high or low muscle mass, and may affect results. Cystatin C with Glomerular Filtration Rate is a suitable alternative for these patients. ANION GAP 17 9 - 20 mmol/L 04/26/2025 5:47 AM [facility] Blood Venipuncture / Unknown 04/26/2025 4:56 AM BANANA EXPERT 04/26/2025 5:02 AM BANANA EXPERT us Rishabh Reed MD CHEMISTRY ORDERABLES Final Result [facility] CLIA # [id number] [address] [place] [address] [place] [address] * (ABNORMAL) CBC WITH DIFFERENTIAL (04/26/2025 4:56 AM BANANA EXPERT) Pathologist [facility] WBC 6.5 4.8 - 10.8 K/uL 04/26/2025 5:06 AM [facility] RBC 3.19(L) 4.60 - 6.20 M/uL 04/26/2025 5:06 AM [facility] HEMOGLOBIN 8.4(L) 14.0 - 18.0 g/dL 04/26/2025 5:06 AM [facility] HEMATOCRIT 28.0(L) 41.0 - 53.0 % 04/26/2025 5:06 AM [facility] MCV 87.8 84.0 - 103.0 fL 04/26/2025 5:06 AM [facility] MCH 26.3(L) 27.0 - 34.0 pg 04/26/2025 5:06 AM [facility] MCHC 30.0 30.0 - 35.0 g/dL 04/26/2025 5:06 AM [facility] PLATELETS 194 140 - 440 K/uL 04/26/2025 5:06 AM [facility] MPV 9.3 8.9 - 12.8 fL 04/26/2025 5:06 AM [facility] RDW 19.4(H) 11.0 - 14.5 % 04/26/2025 5:06 AM [facility] RDW-STDEV 62.2(H) 37.0 - 54.0 fL 04/26/2025 5:06 AM [facility] NEUTROPHILS 69 42 - 75 % 04/26/2025 5:06 AM [facility] LYMPHOCYTES 17(L) 24 - 44 % 04/26/2025 5:06 AM [facility] MONOCYTES 8 2 - 10 % 04/26/2025 5:06 AM [facility] EOSINOPHILS 3 0 - 7 % 04/26/2025 5:06 AM [facility] BASOPHILS 1 0 - 1 % 04/26/2025 5:06 AM [facility] IMMATURE GRANULOCYTES 2 0 - 2 % 04/26/2025 5:06 AM [facility] NEUTROPHIL ABSOLUTE 4.47 2.00 - 8.00 K/uL 04/26/2025 5:06 AM [facility] LYMPHOCYTE ABSOLUTE 1.12(L) 1.20 - 4.00 K/uL 04/26/2025 5:06 AM [facility] MONOCYTE ABSOLUTE 0.53 0.10 - 0.60 K/uL 04/26/2025 5:06 AM [facility] EOSINOPHIL ABSOLUTE 0.18 0.00 - 0.70 K/uL 04/26/2025 5:06 AM [facility] BASOPHILS ABSOLUTE 0.04 0.00 - 0.20 K/uL 04/26/2025 5:06 AM [facility] IMMATURE GRANULOCYTES ABSOLUTE 0.12(H) 0.00 - 0.10 K/uL 04/26/2025 5:06 AM [facility] SMEAR REVIEWED: NA - Not Applicable 04/26/2025 5:06 AM [facility] Blood Venipuncture / Unknown 04/26/2025 4:56 AM BANANA EXPERT 04/26/2025 4:59 AM [facility] us Rishabh Reed MD HEMATOLOGY ORDERABLES Cristy francois Result [facility] CLIA # [id number] [address] [address] [place] [address] * UNFRACTIONATED HEPARIN MONITORING (04/26/2025 4:56 AM BANANA EXPERT) ANTI-XA UNFRAC HEP 0.27 See Interpretation IU/mL 04/26/2025 5:15 AM BANANA EXPERT [facility] Blood Venipuncture / Unknown 04/26/2025 4:56 AM BANANA EXPERT 04/26/2025 4:59 AM BANANA EXPERT Narrative [facility] - 04/26/2025 5:15 AM BANANA EXPERT Therapeutic Range: PT/DVT Heparin Protocol 0.3 - 0.7 IU/ml Cardiac Heparin Protocol 0.3 - 0.6 IU/ml The reference range for this test is specific to the anticoagulant and is not appropriate for monitoring patients on a DOAC protocol. 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 : 1958-02-28 Requested By: Order Number: [id number] Reading MD: Hermila Chandra Measurements Intervals [place] Rate: 108 P: 0 RI: 0 QRS: -84 QRSD: 170 T: 90 QT: 338 QTc: 452 Interpretive Statements Atrial fibrillation with rapid ventricular response with premature ventricular or aberrantly conducted complexes Left bundle branch block Abnormal ECG Electronically Signed On 04-26-2025 5:28:56 BANANA EXPERT by Hermila Chandra Procedure Note Hermila Chandra MD - 04/26/2025 [address] [place] [address] Test Date: 2025-04-26 Pat Name: KRISTOPHER LEBLANC Department: 12 Room: [address] [place] [address] Gender: 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: [id number] : 1958-02-28 Requested By: Order Number: [id number] Reading MD: Hermila Chandra Measurements Intervals [place] Rate: 108 P: 0 RI: 0 QRS: -84 QRSD: 170 T: 90 QT: 338 QTc: 452 Interpretive Statements Atrial fibrillation with rapid ventricular response with premature ventricular or aberrantly conducted complexes Left bundle branch block Abnormal ECG Electronically Signed On 04-26-2025 5:28:56 BANANA EXPERT by Hermila Chandra us Komal Crandall MD ECG ORDERABLES Final Result INTERFACE SYSTEM Refer to clinic/hospital department * (ABNORMAL) HEMOGLOBIN AND HEMATOCRIT (04/26/2025 12:35 AM BANANA EXPERT) HEMOGLOBIN 8.1(L) 14.0 - 18.0 g/dL 04/26/2025 12:46 AM BANANA EXPERT [facility] HEMATOCRIT 25.9(L) 41.0 - 53.0 % 04/26/2025 12:46 AM BANANA EXPERT [facility] Blood Venipuncture / Unknown 04/26/2025 12:35 AM BANANA EXPERT 04/26/2025 12:42 AM BANANA EXPERT us Rishabh Reed MD HEMATOLOGY ORDERABLES Cristy l Result [facility] CLIA # [id number] [address] [place], [place] [address] [place] [address] * (ABNORMAL) HEMOGLOBIN AND HEMATOCRIT (04/25/2025 5:09 PM BANANA EXPERT) HEMOGLOBIN 8.4(L) 14.0 - 18.0 g/dL 04/25/2025 5:39 PM BANANA EXPERT [facility] HEMATOCRIT 27.8(L) 41.0 - 53.0 % 04/25/2025 5:39 PM BANANA EXPERT [facility] Blood Venipuncture / Unknown 04/25/2025 5:09 PM BANANA EXPERT 04/25/2025 5:32 PM BANANA EXPERT Rishabh Reed MD HEMATOLOGY ORDERABLES Cristy l Result Performing Organization Address [facility] Co de Phone Number [facility] CLIA # [id number] [address] [address] * UNFRACTIONATED HEPARIN MONITORING (04/25/2025 5:09 PM BANANA EXPERT) [facility] ANTI-XA UNFRAC HEP 0.32 See Interpretation IU/mL 04/25/2025 5:48 PM BANANA EXPERT [facility] Blood Venipuncture / Unknown 04/25/2025 5:09 PM BANANA EXPERT 04/25/2025 5:31 PM BANANA EXPERT Narrative [facility] - 04/25/2025 5:48 PM BANANA EXPERT Therapeutic Range: PT/DVT Heparin Protocol 0.3 - 0.7 IU/ml Cardiac Heparin Protocol 0.3 - 0.6 IU/ml The reference range for this test is specific to the anticoagulant and is not appropriate for monitoring patients on a DOAC protocol. 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: [id number] : 1958-02-28 Requested By: Order Number: [id number] Reading MD: Hermila Chandra Measurements Intervals [place] Rate: 98 P: 52 RI: 166 QRS: 38 QRSD: 190 T: 163 QT: 326 QTc: 416 Interpretive Statements Atrial fibrillation Left bundle branch block Abnormal ECG Electronically Signed On 04-25-2025 13:53:49 BANANA EXPERT by Hermila Chandra Procedure Note Hermila Chandra MD - 04/25/[address] [address] Test Date: 2025-04-25 Pat Name: KRISTOPHER LEBLANC Department: 12 Room: [address] [place] [address] Gender: 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: [id number] : 1958-02-28 Requested By: Order Number: [id number] Reading MD: Hermila Chandra Measurements Intervals [place] Rate: 98 P: 52 RI: 166 QRS: 38 QRSD: 190 T: 163 QT: 326 QTc: 416 Interpretive Statements Atrial fibrillation Left bundle branch block Abnormal ECG Electronically Signed On 04-25-2025 13:53:49 BANANA EXPERT by Hermila Chandra Komal Crandall MD ECG ORDERABLES Final Result INTERFACE SYSTEM Refer to clinic/hospital department * (ABNORMAL) HEMOGLOBIN AND HEMATOCRIT (04/25/2025 11:11 AM BANANA EXPERT) HEMOGLOBIN 8.4(L) 14.0 - 18.0 g/dL 04/25/2025 11:21 AM BANANA EXPERT [facility] HEMATOCRIT 28.1(L) 41.0 - 53.0 % 04/25/2025 11:21 AM BANANA EXPERT [facility] Blood Venipuncture / Unknown 04/25/2025 11:11 AM BANANA EXPERT 04/25/2025 11:15 AM BANANA EXPERT Rishabh Reed MD HEMATOLOGY ORDERABLES Cristy l Result Performing Organization Address [facility] Co de Phone Number [facility] CLIA # [id number] [address] [place] [address] * UNFRACTIONATED HEPARIN MONITORING (04/25/2025 11:11 AM BANANA EXPERT) ANTI-XA UNFRAC HEP 0.37 See Interpretation IU/mL 04/25/2025 11:32 AM BANANA EXPERT [facility] Blood Venipuncture / Unknown 04/25/2025 11:11 AM BANANA EXPERT 04/25/2025 11:15 AM BANANA EXPERT Narrative [facility] - 04/25/2025 11:32 AM BANANA EXPERT Therapeutic Range: PT/DVT Heparin Protocol 0.3 - 0.7 IU/ml Cardiac Heparin Protocol 0.3 - 0.6 IU/ml The reference range for this test is specific to the anticoagulant and is not appropriate for monitoring patients on a DOAC protocol. Komal Crandall MD HEMATOLOGY ORDERABLES Final Resu lt Performing Organization Address [facility] de Phone Number [facility] CLIA # [id number] [address] [address] * MAGNESIUM LEVEL (04/25/2025 4:40 AM BANANA EXPERT) MAGNESIUM 1.7 1.6 - 2.4 mg/dL 04/25/2025 5:30 AM BANANA EXPERT [facility] Blood Venipuncture / Unknown 04/25/2025 4:40 AM BANANA EXPERT 04/25/2025 4:52 AM BANANA EXPERT Rishabh Reed MD CHEMISTRY ORDERABLES Final Result [facility] CLIA # [id number] [address] [place] [address] [place] [address] * (ABNORMAL) BASIC METABOLIC PANEL (04/25/2025 4:40 AM BANANA EXPERT) SODIUM 139 136 - 145 mmol/L 04/25/2025 5:30 AM [facility] POTASSIUM 3.3(L) 3.5 - 5.1 mmol/L 04/25/2025 5:30 AM [facility] CHLORIDE 103 98 - 107 mmol/L 04/25/2025 5:30 AM [facility] CO2 19(L) 22 - 29 mmol/L 04/25/2025 5:30 AM [facility] CALCIUM 10.5(H) 8.8 - 10.2 mg/dL 04/25/2025 5:30 AM [facility] BUN 68(H) 8 - 23 mg/dL 04/25/2025 5:30 AM [facility] CREATININE 1.86(H) 0.67 - 1.17 mg/dL 04/25/2025 5:30 AM [facility] GLUCOSE 86 74 - 99 mg/dL 04/25/2025 5:30 AM [facility] GFR 39(L) >=60 mL/min/1. 73 sq meter 04/25/2025 5:30 AM [facility] Comment:eGFR calculated with 2020 CKD-EPI equation. Vegetarian diet, extremely high or low muscle mass, and may affect results. Cystatin C with Glomerular Filtration Rate is a suitable alternative for these patients. ANION GAP 17 9 - 20 mmol/L 04/25/2025 5:30 AM [facility] Blood Venipuncture / Unknown 04/25/2025 4:40 AM BANANA EXPERT 04/25/2025 4:52 AM BANANA EXPERT Rishabh Reed MD CHEMISTRY ORDERABLES Final Result [facility] CLIA # [id number] [address] [address] [place] [address] * (ABNORMAL) CBC WITH DIFFERENTIAL (04/25/2025 4:40 AM BANANA EXPERT) WBC 6.0 4.8 - 10.8 K/uL 04/25/2025 5:02 AM [facility] RBC 3.33(L) 4.60 - 6.20 M/uL 04/25/2025 5:02 AM [facility] HEMOGLOBIN 8.7(L) 14.0 - 18.0 g/dL 04/25/2025 5:02 AM [facility] HEMATOCRIT 29.2(L) 41.0 - 53.0 % 04/25/2025 5:02 AM [facility] MCV 87.7 84.0 - 103.0 fL 04/25/2025 5:02 AM [facility] MCH 26.1(L) 27.0 - 34.0 pg 04/25/2025 5:02 AM [facility] MCHC 29.8(L) 30.0 - 35.0 g/dL 04/25/2025 5:02 AM [facility] PLATELETS 204 140 - 440 K/uL 04/25/2025 5:02 AM [facility] MPV 9.7 8.9 - 12.8 fL 04/25/2025 5:02 AM [facility] RDW 19.4(H) 11.0 - 14.5 % 04/25/2025 5:02 AM [facility] RDW-STDEV 62.1(H) 37.0 - 54.0 fL 04/25/2025 5:02 AM [facility] NEUTROPHILS 71 42 - 75 % 04/25/2025 5:02 AM [facility] LYMPHOCYTES 15(L) 24 - 44 % 04/25/2025 5:02 AM [facility] MONOCYTES 9 2 - 10 % 04/25/2025 5:02 AM [facility] EOSINOPHILS 3 0 - 7 % 04/25/2025 5:02 AM [facility] BASOPHILS 1 0 - 1 % 04/25/2025 5:02 AM [facility] IMMATURE GRANULOCYTES 1 0 - 2 % 04/25/2025 5:02 AM [facility] NEUTROPHIL ABSOLUTE 4.30 2.00 - 8.00 K/uL 04/25/2025 5:02 AM [facility] LYMPHOCYTE ABSOLUTE 0.87(L) 1.20 - 4.00 K/uL 04/25/2025 5:02 AM [facility] MONOCYTE ABSOLUTE 0.54 0.10 - 0.60 K/uL 04/25/2025 5:02 AM [facility] EOSINOPHIL ABSOLUTE 0.20 0.00 - 0.70 K/uL 04/25/2025 5:02 AM [facility] BASOPHILS ABSOLUTE 0.05 0.00 - 0.20 K/uL 04/25/2025 5:02 AM [facility] IMMATURE GRANULOCYTES ABSOLUTE 0.06 0.00 - 0.10 K/uL 04/25/2025 5:02 AM [facility] SMEAR REVIEWED: NA - Not Applicable 04/25/2025 5:02 AM [facility] Blood Venipuncture / Unknown 04/25/2025 4:40 AM BANANA EXPERT 04/25/2025 4:51 AM [facility] us Rishabh Reed MD HEMATOLOGY ORDERABLES Cristy l Result [facility] CLIA # [id number] [address] [place] [address] [place] [address] * UNFRACTIONATED HEPARIN MONITORING (04/25/2025 4:40 AM BANANA EXPERT) ANTI-XA UNFRAC HEP 0.29 See Interpretation IU/mL 04/25/2025 5:06 AM BANANA EXPERT [facility] Blood Venipuncture / Unknown 04/25/2025 4:40 AM BANANA EXPERT 04/25/2025 4:51 AM BANANA EXPERT Narrative [facility] - 04/25/2025 5:06 AM BANANA EXPERT Therapeutic Range: PT/DVT Heparin Protocol 0.3 - 0.7 IU/ml Cardiac Heparin Protocol 0.3 - 0.6 IU/ml The reference range for this test is specific to the anticoagulant and is not appropriate for monitoring patients on a DOAC protocol. Komal Crandall MD HEMATOLOGY ORDERABLES Final Resu lt Performing Organization Address [facility] Co de Phone Number [facility] CLIA # [id number] [address] [address] * (ABNORMAL) HEMOGLOBIN AND HEMATOCRIT (04/24/2025 4:32 PM BANANA EXPERT) [facility] HEMOGLOBIN 8.1(L) 14.0 - 18.0 g/dL 04/24/2025 4:58 PM BANANA EXPERT [facility] HEMATOCRIT 26.8(L) 41.0 - 53.0 % 04/24/2025 4:58 PM BANANA EXPERT [facility] Blood Venipuncture / Unknown 04/24/2025 4:32 PM BANANA EXPERT 04/24/2025 4:53 PM BANANA EXPERT us Rishabh Reed MD HEMATOLOGY ORDERABLES Cristy l Result Performing Organization Address [facility]/ZIP Co de Phone Number [facility] CLIA # [id number] [address] [address] * UNFRACTIONATED HEPARIN MONITORING (04/24/2025 10:35 AM BANANA EXPERT) ANTI-XA UNFRAC HEP 0.42 See Interpretation IU/mL 04/24/2025 10:52 AM BANANA EXPERT [facility] Blood Venipuncture / Unknown 04/24/2025 10:35 AM BANANA EXPERT 04/24/2025 10:39 AM BANANA EXPERT Narrative [facility] - 04/24/2025 10:52 AM BANANA EXPERT Therapeutic Range: PT/DVT Heparin Protocol 0.3 - 0.7 IU/ml Cardiac Heparin Protocol 0.3 - 0.6 IU/ml The reference range for this test is specific to the anticoagulant and is not appropriate for monitoring patients on a DOAC protocol. 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: [id number] : 1958-02-28 Requested By: Order Number: [id number] Reading MD: Hermila Chandra Measurements Intervals [place] Rate: 100 P: 0 RI: 0 QRS: 42 QRSD: 186 T: 147 QT: 362 QTc: 466 Interpretive Statements Atrial fibrillation with premature ventricular or aberrantly conducted complexes Left bundle branch block Abnormal ECG Electronically Signed On 04-25-2025 13:39:02 BANANA EXPERT by Hermila Chandra Procedure Note Hermila Chandra MD - 04/25/[address] [address] Test Date: 2025-04-24 Pat Name: KRISTOPHER LEBLANC Department: 12 Room: [address] [place] [address] Gender: 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: [id number] : 1958-02-28 Requested By: Order Number: [id number] Hamzah MD: Hermila Chandra Measurements Intervals [place] Rate: 100 P: 0 RI: 0 QRS: 42 QRSD: 186 T: 147 QT: 362 QTc: 466 Interpretive Statements Atrial fibrillation with premature ventricular or aberrantly conducted complexes Left bundle branch block Abnormal ECG Electronically Signed On 04-25-2025 13:39:02 BANANA EXPERT by Hermila Chandra Tara Jiang MD ECG ORDERABLES Final Result INTERFACE SYSTEM Refer to clinic/hospital department * (ABNORMAL) HEMOGLOBIN AND HEMATOCRIT (04/24/2025 5:10 AM BANANA EXPERT) HEMOGLOBIN 8.5(L) 14.0 - 18.0 g/dL 04/24/2025 5:53 AM BANANA EXPERT [facility] HEMATOCRIT 28.2(L) 41.0 - 53.0 % 04/24/2025 5:53 AM BANANA EXPERT [facility] Blood Venipuncture / Unknown 04/24/2025 5:10 AM BANANA EXPERT 04/24/2025 5:25 AM BANANA EXPERT Rishabh Reed MD HEMATOLOGY ORDERABLES Cristy l Result Performing Organization Address City/[facility] Co de Phone Number [facility] CLIA # [id number] [address] [place] [address] [place] [address] * MAGNESIUM LEVEL (04/24/2025 5:10 AM BANANA EXPERT) MAGNESIUM 1.9 1.6 - 2.4 mg/dL 04/24/2025 5:53 AM BANANA EXPERT [facility] Blood Venipuncture / Unknown 04/24/2025 5:10 AM BANANA EXPERT 04/24/2025 5:23 AM BANANA EXPERT Rishabh Reed MD CHEMISTRY ORDERABLES Final Result [facility] CLIA # [id number] [address] [place] [address] * (ABNORMAL) BASIC METABOLIC PANEL (04/24/2025 5:10 AM BANANA EXPERT) SODIUM 139 136 - 145 mmol/L 04/24/2025 5:53 AM [facility] POTASSIUM 3.2(L) 3.5 - 5.1 mmol/L 04/24/2025 5:53 AM [facility] CHLORIDE 103 98 - 107 mmol/L 04/24/2025 5:53 AM [facility] CO2 21(L) 22 - 29 mmol/L 04/24/2025 5:53 AM [facility] CALCIUM 10.3(H) 8.8 - 10.2 mg/dL 04/24/2025 5:53 AM [facility] BUN 82(H) 8 - 23 mg/dL 04/24/2025 5:53 AM [facility] CREATININE 2.06(H) 0.67 - 1.17 mg/dL 04/24/2025 5:53 AM [facility] GLUCOSE 90 74 - 99 mg/dL 04/24/2025 5:53 AM [facility] GFR 34(L) >=60 mL/min/1. 73 sq meter 04/24/2025 5:53 AM [facility] Comment:eGFR calculated with 2020 CKD-EPI equation. Vegetarian diet, extremely high or low muscle mass, and may affect results. Cystatin C with Glomerular Filtration Rate is a suitable alternative for these patients. ANION GAP 15 9 - 20 mmol/L 04/24/2025 5:53 AM [facility] Blood Venipuncture / Unknown 04/24/2025 5:10 AM BANANA EXPERT 04/24/2025 5:23 AM BANANA EXPERT Rishabh Reed MD CHEMISTRY ORDERABLES Final Result Performing Organization Address [facility] Co de Phone Number [facility] CLIA # [id number] [address] [address] * UNFRACTIONATED HEPARIN MONITORING (04/24/2025 2:44 AM BANANA EXPERT) Pathologist [facility] ANTI-XA UNFRAC HEP 0.43 See Interpretation IU/mL 04/24/2025 3:08 AM BANANA EXPERT [facility] Blood Venipuncture / Unknown 04/24/2025 2:44 AM BANANA EXPERT 04/24/2025 2:55 AM BANANA EXPERT Narrative [facility] - 04/24/2025 3:08 AM BANANA EXPERT Therapeutic Range: PT/DVT Heparin Protocol 0.3 - 0.7 IU/ml Cardiac Heparin Protocol 0.3 - 0.6 IU/ml The reference range for this test is specific to the anticoagulant and is not appropriate for monitoring patients on a DOAC protocol. Komal Crandall MD HEMATOLOGY ORDERABLES Final Resu lt Performing Organization Address [facility] de Phone Number [facility] CLIA # [id number] [address] [place] [address] * (ABNORMAL) HEMOGLOBIN AND HEMATOCRIT (04/24/2025 12:39 AM BANANA EXPERT) [facility] HEMOGLOBIN 8.4(L) 14.0 - 18.0 g/dL 04/24/2025 12:49 AM BANANA EXPERT [facility] HEMATOCRIT 27.7(L) 41.0 - 53.0 % 04/24/2025 12:49 AM BANANA EXPERT [facility] Blood Venipuncture / Unknown 04/24/2025 12:39 AM BANANA EXPERT 04/24/2025 12:46 AM BANANA EXPERT Rishabh Reed MD HEMATOLOGY ORDERABLES Cristy l Result Performing Organization Address City/[facility] de Phone Number [facility] CLIA # [id number] [address] [address] [place] [address] * (ABNORMAL) HEMOGLOBIN AND HEMATOCRIT (04/23/2025 8:40 PM BANANA EXPERT) [facility] HEMOGLOBIN 8.8(L) 14.0 - 18.0 g/dL 04/23/2025 8:55 PM BANANA EXPERT [facility] HEMATOCRIT 29.4(L) 41.0 - 53.0 % 04/23/2025 8:55 PM BANANA EXPERT [facility] Blood Venipuncture / Unknown 04/23/2025 8:40 PM BANANA EXPERT 04/23/2025 8:47 PM BANANA EXPERT us Gregorio Rogers MD HEMATOLOGY ORDERABLE S Final Result Performing Organization Address [facility] de Phone Number [facility] CLIA # [id number] [address] [address] * UNFRACTIONATED HEPARIN MONITORING (04/23/2025 7:42 PM BANANA EXPERT) [facility] ANTI-XA UNFRAC HEP 0.20 See Interpretation IU/mL 04/23/2025 8:16 PM BANANA EXPERT [facility] Blood Venipuncture / Unknown 04/23/2025 7:42 PM BANANA EXPERT 04/23/2025 7:55 PM BANANA EXPERT Narrative [facility] - 04/23/2025 8:16 PM BANANA EXPERT Therapeutic Range: PT/DVT Heparin Protocol 0.3 - 0.7 IU/ml Cardiac Heparin Protocol 0.3 - 0.6 IU/ml The reference range for this test is specific to the anticoagulant and is not appropriate for monitoring patients on a DOAC protocol. us Komal Crandall MD HEMATOLOGY ORDERABLES Final Resu lt Performing Organization Address [facility] Co de Phone Number [facility] CLIA # [id number] [address] [address] [place] [address] * (ABNORMAL) HEMOGLOBIN AND HEMATOCRIT (04/23/2025 1:24 PM BANANA EXPERT) [facility] HEMOGLOBIN 8.9(L) 14.0 - 18.0 g/dL 04/23/2025 1:41 PM BANANA EXPERT [facility] HEMATOCRIT 29.6(L) 41.0 - 53.0 % 04/23/2025 1:41 PM BANANA EXPERT [facility] Blood Venipuncture / Unknown 04/23/2025 1:24 PM BANANA EXPERT 04/23/2025 1:28 PM BANANA EXPERT us Gregorio Rogers MD HEMATOLOGY ORDERABLE S Final Result Performing Organization Address [place]/[facility] Co de Phone Number [facility] CLIA # [id number] [address] [address] * UNFRACTIONATED HEPARIN MONITORING (04/23/2025 1:24 PM BANANA EXPERT) [facility] ANTI-XA UNFRAC HEP 0.33 See Interpretation IU/mL 04/23/2025 1:57 PM BANANA EXPERT [facility] Blood Venipuncture / Unknown 04/23/2025 1:24 PM BANANA EXPERT 04/23/2025 1:28 PM BANANA EXPERT Narrative [facility] - 04/23/2025 1:57 PM BANANA EXPERT Therapeutic Range: PT/DVT Heparin Protocol 0.3 - 0.7 IU/ml Cardiac Heparin Protocol 0.3 - 0.6 IU/ml The reference range for this test is specific to the anticoagulant and is not appropriate for monitoring patients on a DOAC protocol. us Komal Crandall MD HEMATOLOGY ORDERABLES Final Resu lt Performing Organization Address [place]/[facility]/ZIP Co de Phone Number [facility] CLIA # [id number] [address] [facility] [place] [address] * ECHO TRANSESOPHAGEAL WITH CARDIOVERSION (04/23/2025 10:00 AM BANANA EXPERT) EJECTION FRACTION EF: INTERFACE SYSTEM 04/23/2025 8:49 AM BANANA EXPERT Narrative INTERFACE SYSTEM - 04/23/2025 9:56 AM [facility] Cardiovascular Services Echocardiography Laboratory [facility] [place] [address] Transesophageal Echocardiography with Cardioversion Patient: Kristopher Leblanc Study ID: ECHO JENNIFEROPHA Gender: M : 02/28/1958 Age: 67 Room: [facility] Study Date: 04/23/2025 Pt Status: Inpatient Study Time: 08:49:44 AM CSN #: [id number] Ordering:Tara Jiang Aws Software Development Engineer: LINDSEY Nurse: Marleni Vazquez Indications and History: Atrial Fibrillation. Labs, prior tests, procedures, and surgery: Transthoracic echocardiogram (04/22/2025). Summary and Conclusion: - Left ventricle: The cavity size is dilated. Wall thickness is increased in a pattern of mild LVH. Global systolic function is severely reduced. The estimated ejection fraction is 20-25%. There is diffuse hypokinesis. Interventricular septum shows abnormal bouncy motion. - Right ventricle: The cavity size is mildly dilated. Systolic function is reduced. Systolic pressure is mildly to moderately increased. - Left atrium: The atrium is dilated. There is no evidence of a thrombus in the atrial cavity or appendage. Appendage properties: The appendage is normal-sized. Emptying velocity is mildly reduced. - Right atrium: The atrium is mildly dilated. There is no evidence of a thrombus in the atrial cavity or appendage. - Atrial septum: Agitated saline contrast study shows no rnzkb-wc-vikf shunt. - Mitral valve: The annulus is calcified. The leaflets are thickened. There is moderate2-3+ regurgitation, directed centrally. - Tricuspid valve: There is mild-moderate regurgitation. - Pulmonic valve: There is mild regurgitation. - Pericardium: A minimal pericardial effusion and/or fat pad was identified. - Descending aorta: The vessel is normal-sized. There is mild diffuse disease. Impressions: Successful synchronized electrical cardioversion. Procedure information: Comparison is made to the study of 04/22/2025. Study status: Routine. Consent: The risks, benefits, and alternatives to the procedure were explained to the patient and consent was obtained. Procedure: The patient arrived at the laboratory in the fasting state. Intravenous access was obtained. Surface ECG leads, automatic cuff blood pressure measurements, and pulse oximetric signals were monitored. The patient arrived at the laboratory in the fasting state. A baseline ECG was recorded. Intravenous access was obtained. Surface ECG leads and pulse oximetric signals were monitored. Self-adhesive anterior-posterior defibrillation pads were applied. Moderate sedation was administered by nursing staff. Transesophageal echocardiography was performed. Topical anesthesia was obtained using benzocaine spray. An adult multiplane transesophageal probe was inserted by the attending rn assessment without difficulty. Image quality was adequate. Intravenous contrast (agitated saline) was administered. The transesophageal probe was removed. No intracardiac thrombus was identified. After completion of transesophageal echocardiogram we proceeded with electrical cardioversion. The rhythm was successfully converted from atrial fibrillation to normal sinus rhythm, using biphasic synchronized shocks with a energy of 200J. Study completion: The patient tolerated the procedure well. Sedation begun at 0851 and 0924. There were no complications. Administered medications: Midazolam, 6mg. Fentanyl, 100mcg. Fentanyl. Midazolam. Study components: 2D, complete spectral Doppler, color Doppler, and agitated saline. Height: 180.3cm. Height: 71in. Weight: 142.1kg. Weight: 313.3lb. BMI: 43.7kg/m^2. BSA: 2.73m^2. Blood pressure: 139/91 Study date: 04/23/2025. Study time: 08:49 AM. Location: Special procedures room. Cardiac Anatomy: LEFT VENTRICLE: The cavity size is dilated. Wall thickness is increased in a pattern of mild LVH. Global systolic function is severely reduced. The estimated ejection fraction is 20-25%. There is diffuse hypokinesis. Interventricular septum shows abnormal bouncy motion. The ratio of systolic to diastolic pulmonary vein flow is reduced (diastolic predominant). RIGHT VENTRICLE: The cavity size is mildly dilated. Systolic function is reduced. Systolic pressure is mildly to moderately increased. LEFT ATRIUM: The atrium is dilated. There is no evidence of a thrombus in the atrial cavity or appendage. Appendage: The appendage is normal-sized. Emptying velocity is mildly reduced. RIGHT ATRIUM: The atrium is mildly dilated. There is no evidence of a thrombus in the atrial cavity or appendage. ATRIAL SEPTUM: No obvious PFO or ASD identified by 2D imaging and color Doppler. Agitated saline contrast study shows no szqnm-xo-uopz shunt. AORTIC VALVE: The valve is trileaflet. The leaflets are mildly thickened. Cusp separation is normal. There is trace regurgitation. MITRAL VALVE: The annulus is calcified. The leaflets are thickened. Leaflet separation is normal. There is moderate2-3+ regurgitation, directed centrally. TRICUSPID VALVE: Structurally normal valve. Leaflet separation is normal. There is mild-moderate regurgitation. PULMONIC VALVE: The valve appears to be grossly normal. There is mild regurgitation. PERICARDIUM: A minimal pericardial effusion and/or fat pad was identified. AORTA: Aortic root: The root is normal-sized. Ascending aorta: The vessel is normal-sized. Aortic arch: The vessel is normal-sized. Descending aorta: The vessel is normal-sized. There is mild diffuse disease. PULMONARY ARTERY: The main pulmonary artery is normal-sized. Measurements Tricuspid valve Value TR peak v 296 cm/sec Peak RV-RA grad, S 35 mm Hg Max TR puja 296 cm/sec Peak RV-RA grad, S 35 mm Hg Legend: (L) and (H) pasquale values outside specified reference range. [facility] are accredited with the Intersocietal Accreditation Commission - Echocardiography. Prepared and Electronically Authenticated Aman Robles Confirmed 04/23/2025 09:56 Procedure Note Aman Robles MD - 04/23/2025 [facility] Cardiovascular Services Echocardiography Laboratory [address] [place] [id number] Transesophageal Echocardiography with Cardioversion Patient: Kristopher Leblanc Study ID: ECHOTRANSESOPHA Gender: M : 02/28/1958 Age: 67 Room: [facility] Study Date: 04/23/2025 Pt Status: Inpatient Study Time: 08:49:44 AM CSN #: [id number] Ordering:Tara Jiang Aws Software Development Engineer: LINDSEY Nurse: Marleni Vazquez Indications and History: Atrial Fibrillation. Labs, prior tests, procedures, and surgery: Transthoracic echocardiogram (04/22/2025). Summary and Conclusion: - Left ventricle: The cavity size is dilated. Wall thickness is increasedin a pattern of mild LVH. Global systolic function is severely reduced. The estimated ejection fraction is 20-25%. There is diffuse hypokinesis. Interventricular septum shows abnormal bouncy motion. - Right ventricle: The cavity size is mildly dilated. Systolic functionis reduced. Systolic pressure is mildly to moderately increased. - Left atrium: The atrium is dilated. There is no evidence of a thrombusin the atrial cavity or appendage. Appendage properties: The appendage is normal-sized. Emptying velocity is mildly reduced. - Right atrium: The atrium is mildly dilated. There is no evidence of a thrombus in the atrial cavity or appendage. - Atrial septum: Agitated saline contrast study shows no ssuqx-pt-votjahgmt. - Mitral valve: The annulus is calcified. The leaflets are thickened.There is moderate2-3+ regurgitation, directed centrally. - Tricuspid valve: There is mild-moderate regurgitation. - Pulmonic valve: There is mild regurgitation. - Pericardium: A minimal pericardial effusion and/or fat pad wasidentified. - Descending aorta: The vessel is normal-sized. There is mild diffusedisease. Impressions: Successful synchronized electrical cardioversion. Procedure information: Comparison is made to the study of 04/22/2025.Study status: Routine. Consent: The risks, benefits, and alternatives tothe procedure were explained to the patient and consent was obtained.Procedure: The patient arrived at the laboratory in the fasting state. Intravenousaccess was obtained. Surface ECG leads, automatic cuff blood pressuremeasurements, and pulse oximetric signals were monitored. The patient arrived at the laboratory in the fasting state. A baseline ECG was recorded.Intravenous access was obtained. Surface ECG leads and pulse oximetric signals were monitored. Self-adhesive anterior-posterior defibrillation pads wereapplied. Moderate sedation was administered by nursing staff. Transesophageal echocardiography was performed. Topical anesthesia was obtained using benzocaine spray. An adult multiplane transesophageal probe was insertedby the attending rn assessment without difficulty. Image quality wasadequate. Intravenous contrast (agitated saline) was administered. Thetransesophageal probe was removed. No intracardiac thrombus was identified. Aftercompletion of transesophageal echocardiogram we proceeded with electricalcardioversion. The rhythm was successfully converted from atrial fibrillation to normalsinus rhythm, using biphasic synchronized shocks with a energy of 200J. Study completion: The patient tolerated the procedure well. Sedation begun ac9227 and 0924. There were no complications. Administered medications:Midazolam, 6mg. Fentanyl, 100mcg. Fentanyl. Midazolam. Study components:2D, complete spectral Doppler, color Doppler, and agitated saline.Height: 180.3cm. Height: 71in. Weight: 142.1kg. Weight: 313.3lb. BMI: 43.7kg/m^2. BSA: 2.73m^2. Blood pressure: 139/91 Studydate: 04/23/2025. Study time: 08:49 AM. Location: Special procedures room. Cardiac Anatomy: LEFT VENTRICLE: The cavity size is dilated. Wall thickness is increasedin a pattern of mild LVH. Global systolic function is severely reduced. The estimated ejection fraction is 20-25%. There is diffuse hypokinesis. Interventricular septum shows abnormal bouncy motion. The ratio ofsystolic to diastolic pulmonary vein flow is reduced (diastolic predominant). RIGHT VENTRICLE: The cavity size is mildly dilated. Systolic functionis reduced. Systolic pressure is mildly to moderately increased. LEFT ATRIUM: The atrium is dilated. There is no evidence of a thrombusin the atrial cavity or appendage. Appendage: The appendage is normal-sized. Emptying velocity is mildly reduced. RIGHT ATRIUM: The atrium is mildly dilated. There is no evidence of a thrombus in the atrial cavity or appendage. ATRIAL SEPTUM: No obvious PFO or ASD identified by 2D imaging and color Doppler. Agitated saline contrast study shows no msaql-is-zbpu shunt. AORTIC VALVE: The valve is trileaflet. The leaflets are mildlythickened. Cusp separation is normal. There is trace regurgitation. MITRAL VALVE: The annulus is calcified. The leaflets are thickened.Leaflet separation is normal. There is moderate2-3+ regurgitation, directedcentrally. TRICUSPID VALVE: Structurally normal valve. Leaflet separation isnormal. There is mild-moderate regurgitation. PULMONIC VALVE: The valve appears to be grossly normal. There ismild regurgitation. PERICARDIUM: A minimal pericardial effusion and/or fat pad wasidentified. AORTA: Aortic root: The root is normal-sized. Ascending aorta: The vessel is normal-sized. Aortic arch: The vessel is normal-sized. Descending aorta: The vessel is normal-sized. There is mild diffusedisease. PULMONARY ARTERY: The main pulmonary artery is normal-sized. Measurements Tricuspid valve Value TR peak v 296 cm/sec Peak RV-RA grad, S 35 mm Hg Max TR puja 296 cm/sec Peak RV-RA grad, S 35 mm Hg Legend: (L) and (H) pasquale values outside specified reference range. [facility] are accredited with theIntersocietal Accreditation Commission - Echocardiography. Prepared and Electronically Authenticated Aman Robles Confirmed 04/23/2025 09:56 us Tara Jiang MD ORDERABLES Final Result INTERFACE SYSTEM Refer to clinic/hospital department * UNFRACTIONATED HEPARIN MONITORING (04/23/2025 6:11 AM BANANA EXPERT) ANTI-XA UNFRAC HEP 0.24 See Interpretation IU/mL 04/23/2025 6:38 AM BANANA EXPERT [facility] Blood Venipuncture / Unknown 04/23/2025 6:11 AM BANANA EXPERT 04/23/2025 6:19 AM BANANA EXPERT Narrative [facility] - 04/23/2025 6:38 AM BANANA EXPERT Therapeutic Range: PT/DVT Heparin Protocol 0.3 - 0.7 IU/ml Cardiac Heparin Protocol 0.3 - 0.6 IU/ml The reference range for this test is specific to the anticoagulant and is not appropriate for monitoring patients on a DOAC protocol. us Komal Crandall MD HEMATOLOGY ORDERABLES Final Resu lt Performing Organization Address City/[facility]/ZIP Co de Phone Number [facility] CLIA # [id number] [address] [phone] * (ABNORMAL) HEMOGLOBIN AND HEMATOCRIT (04/23/2025 6:11 AM BANANA EXPERT) [facility] HEMOGLOBIN 8.3(L) 14.0 - 18.0 g/dL 04/23/2025 6:25 AM BANANA EXPERT [facility] HEMATOCRIT 27.3(L) 41.0 - 53.0 % 04/23/2025 6:25 AM BANANA EXPERT [facility] Blood Venipuncture / Unknown 04/23/2025 6:11 AM BANANA EXPERT 04/23/2025 6:19 AM BANANA EXPERT us Gregorio Rogers MD HEMATOLOGY ORDERABLE S Final Result Performing Organization Address City/[facility]/ZIP Co de Phone Number [facility] CLIA # [id number] [address] [phone] * MAGNESIUM LEVEL (04/23/2025 3:12 AM BANANA EXPERT) [facility] MAGNESIUM 1.9 1.6 - 2.4 mg/dL 04/23/2025 4:01 AM [facility] Blood Venipuncture / Unknown 04/23/2025 3:12 AM BANANA EXPERT 04/23/2025 3:21 AM BANANA EXPERT Rishabh Reed MD CHEMISTRY ORDERABLES Final Result [facility] CLIA # [id number] [address] [place] [id number] * (ABNORMAL) BASIC METABOLIC PANEL (04/23/2025 3:12 AM BANANA EXPERT) SODIUM 134(L) 136 - 145 mmol/L 04/23/2025 4:01 AM [facility] POTASSIUM 3.6 3.5 - 5.1 mmol/L 04/23/2025 4:01 AM [facility] CHLORIDE 97(L) 98 - 107 mmol/L 04/23/2025 4:01 AM [facility] CO2 19(L) 22 - 29 mmol/L 04/23/2025 4:01 AM [facility] CALCIUM 9.8 8.8 - 10.2 mg/dL 04/23/2025 4:01 AM [facility] BUN 89(H) 8 - 23 mg/dL 04/23/2025 4:01 AM [facility] CREATININE 2.33(H) 0.67 - 1.17 mg/dL 04/23/2025 4:01 AM [facility] GLUCOSE 187(H) 74 - 99 mg/dL 04/23/2025 4:01 AM [facility] GFR 30(L) >=60 mL/min/1. 73 sq meter 04/23/2025 4:01 AM [facility] Comment:eGFR calculated with 2020 CKD-EPI equation. Vegetarian diet, extremely high or low muscle mass, and may affect results. Cystatin C with Glomerular Filtration Rate is a suitable alternative for these patients. ANION GAP 18 9 - 20 mmol/L 04/23/2025 4:01 AM [facility] Blood Venipuncture / Unknown 04/23/2025 3:12 AM BANANA EXPERT 04/23/2025 3:21 AM BANANA EXPERT Rishabh Reed MD CHEMISTRY ORDERABLES Final Result [facility] CLIA # [id number] [facility] [address] [place] [address] * (ABNORMAL) CBC WITH DIFFERENTIAL (04/23/2025 3:12 AM BANANA EXPERT) [facility] WBC 7.0 4.8 - 10.8 K/uL 04/23/2025 3:28 AM [facility] RBC 3.22(L) 4.60 - 6.20 M/uL 04/23/2025 3:28 AM [facility] HEMOGLOBIN 8.4(L) 14.0 - 18.0 g/dL 04/23/2025 3:28 AM [facility] HEMATOCRIT 28.1(L) 41.0 - 53.0 % 04/23/2025 3:28 AM [facility] MCV 87.3 84.0 - 103.0 fL 04/23/2025 3:28 AM [facility] MCH 26.1(L) 27.0 - 34.0 pg 04/23/2025 3:28 AM [facility] MCHC 29.9(L) 30.0 - 35.0 g/dL 04/23/2025 3:28 AM [facility] PLATELETS 210 140 - 440 K/uL 04/23/2025 3:28 AM [facility] MPV 9.7 8.9 - 12.8 fL 04/23/2025 3:28 AM [facility] RDW 19.1(H) 11.0 - 14.5 % 04/23/2025 3:28 AM [facility] RDW-STDEV 60.2(H) 37.0 - 54.0 fL 04/23/2025 3:28 AM [facility] NEUTROPHILS 77(H) 42 - 75 % 04/23/2025 3:28 AM [facility] LYMPHOCYTES 10(L) 24 - 44 % 04/23/2025 3:28 AM [facility] MONOCYTES 8 2 - 10 % 04/23/2025 3:28 AM [facility] EOSINOPHILS 3 0 - 7 % 04/23/2025 3:28 AM [facility] BASOPHILS 1 0 - 1 % 04/23/2025 3:28 AM [facility] IMMATURE GRANULOCYTES 1 0 - 2 % 04/23/2025 3:28 AM [facility] NEUTROPHIL ABSOLUTE 5.38 2.00 - 8.00 K/uL 04/23/2025 3:28 AM [facility] LYMPHOCYTE ABSOLUTE 0.73(L) 1.20 - 4.00 K/uL 04/23/2025 3:28 AM [facility] MONOCYTE ABSOLUTE 0.55 0.10 - 0.60 K/uL 04/23/2025 3:28 AM [facility] EOSINOPHIL ABSOLUTE 0.21 0.00 - 0.70 K/uL 04/23/2025 3:28 AM [facility] BASOPHILS ABSOLUTE 0.05 0.00 - 0.20 K/uL 04/23/2025 3:28 AM [facility] IMMATURE GRANULOCYTES ABSOLUTE 0.07 0.00 - 0.10 K/uL 04/23/2025 3:28 AM [facility] SMEAR REVIEWED: NN - No Action Needed 04/23/2025 3:28 AM [facility] Blood Venipuncture / Unknown 04/23/2025 3:12 AM BANANA EXPERT 04/23/2025 3:19 AM BANANA EXPERT us Rishabh Reed MD HEMATOLOGY ORDERABLES Cristy francois Result [facility] CLIA # [id number] [id number] [place] [address] * (ABNORMAL) HEMOGLOBIN AND HEMATOCRIT (04/22/2025 11:22 PM BANANA EXPERT) [facility] HEMOGLOBIN 8.3(L) 14.0 - 18.0 g/dL 04/22/2025 11:35 PM BANANA EXPERT [facility] HEMATOCRIT 27.7(L) 41.0 - 53.0 % 04/22/2025 11:35 PM BANANA EXPERT [facility] Blood Venipuncture / Unknown 04/22/2025 11:22 PM BANANA EXPERT 04/22/2025 11:32 PM BANANA EXPERT us Gregorio Rogers MD HEMATOLOGY ORDERABLE S Final Result Performing Organization Address City/[facility]/ZIP Co de Phone Number [facility] CLIA # [id number] [address] [address] * UNFRACTIONATED HEPARIN MONITORING (04/22/2025 11:22 PM BANANA EXPERT) [facility] ANTI-XA UNFRAC HEP 0.12 See Interpretation IU/mL 04/23/2025 12:21 AM BANANA EXPERT [facility] Blood Venipuncture / Unknown 04/22/2025 11:22 PM BANANA EXPERT 04/22/2025 11:32 PM BANANA EXPERT Narrative [facility] - 04/23/2025 12:21 AM BANANA EXPERT Therapeutic Range: PT/DVT Heparin Protocol 0.3 - 0.7 IU/ml Cardiac Heparin Protocol 0.3 - 0.6 IU/ml The reference range for this test is specific to the anticoagulant and is not appropriate for monitoring patients on a DOAC protocol. us Komal Crandall MD HEMATOLOGY ORDERABLES Final Resu lt [facility] CLIA # [id number] [id number] [place], [place] [id number] * POC GLUCOSE (04/22/2025 9:52 PM BANANA EXPERT) [facility] GLUCOSE POC 89 74 - 99 mg/dL 04/22/2025 9:52 PM BANANA EXPERT [facility] SPECIMEN SOURCE, GLUCOSE POC Capillary 04/22/2025 9:52 PM BANANA EXPERT [facility] Blood, whole 04/22/2025 9:52 PM BANANA EXPERT 04/22/2025 10:04 PM BANANA EXPERT us Komal Crandall MD POINT OF CARE TESTING Final Resu lt Performing Organization Address City/[facility]/ZIP Co de Phone Number [facility] CLIA # [id number] [address] [address] [place], [place] [id number] * (ABNORMAL) HEMOGLOBIN AND HEMATOCRIT (04/22/2025 9:24 PM BANANA EXPERT) [facility] HEMOGLOBIN 8.1(L) 14.0 - 18.0 g/dL 04/22/2025 9:50 PM BANANA EXPERT [facility] HEMATOCRIT 27.3(L) 41.0 - 53.0 % 04/22/2025 9:50 PM BANANA EXPERT [facility] Blood Venipuncture / Unknown 04/22/2025 9:24 PM BANANA EXPERT 04/22/2025 9:42 PM BANANA EXPERT us Gregorio Rogers MD HEMATOLOGY ORDERABLE S Final Result [facility] CLIA # [id number] [address] [address] [place], [place] [id number] * POTASSIUM LEVEL (04/22/2025 2:30 PM BANANA EXPERT) [facility] POTASSIUM 3.8 3.5 - 5.1 mmol/L 04/22/2025 3:08 PM BANANA EXPERT [facility] Blood Venipuncture / Unknown 04/22/2025 2:30 PM BANANA EXPERT 04/22/2025 2:44 PM BANANA EXPERT us Komal Crandall MD CHEMISTRY ORDERABLES Final Resul t Performing Organization Address [facility] Co de Phone Number [facility] CLIA # [id number] [address] [place] [address] * (ABNORMAL) HEMOGLOBIN AND HEMATOCRIT (04/22/2025 2:30 PM BANANA EXPERT) [facility] HEMOGLOBIN 9.5(L) 14.0 - 18.0 g/dL 04/22/2025 2:57 PM BANANA EXPERT [facility] HEMATOCRIT 31.4(L) 41.0 - 53.0 % 04/22/2025 2:57 PM BANANA EXPERT [facility] Blood Venipuncture / Unknown 04/22/2025 2:30 PM BANANA EXPERT 04/22/2025 2:44 PM BANANA EXPERT us Gregorio Rogers MD HEMATOLOGY ORDERABLE S Final Result Performing Organization Address [facility] Co de Phone Number [facility] CLIA # [id number] [address] [address] * UNFRACTIONATED HEPARIN MONITORING (04/22/2025 2:30 PM BANANA EXPERT) Pathologist [facility] ANTI-XA UNFRAC HEP 0.13 See Interpretation IU/mL 04/22/2025 3:33 PM BANANA EXPERT [facility] Blood Venipuncture / Unknown 04/22/2025 2:30 PM BANANA EXPERT 04/22/2025 2:44 PM BANANA EXPERT Narrative [facility] - 04/22/2025 3:33 PM BANANA EXPERT Therapeutic Range: PT/DVT Heparin Protocol 0.3 - 0.7 IU/ml Cardiac Heparin Protocol 0.3 - 0.6 IU/ml The reference range for this test is specific to the anticoagulant and is not appropriate for monitoring patients on a DOAC protocol. us Komal Crandall MD HEMATOLOGY ORDERABLES Final Resu lt [facility] # [id number] [address] [place] [address] [place] [address] * US RENAL (04/22/2025 1:19 PM BANANA EXPERT) Anatomical Region Laterality Modality Abdomen Ultrasound 04/22/2025 1:19 PM BANANA EXPERT Impressions 04/22/2025 1:30 PM BANANA EXPERT IMPRESSION: Please see below. Exam: US RENAL Date/Time of Exam: 04/22/2025 1:19 PM Reason For Exam: Acute Renal Failure. Diagnosis: See Reason for Exam. Findings: There are no comparisons. Right kidney: Unremarkable. The right kidney measures 13.0 cm in length. The right kidney is mildly lobulated. The cortex is of normal thickness and echo content. No cystic or solid lesions or calculi are noted. There is no hydronephrosis. Left kidney: Remarkable. The left kidney measures 14.1 cm in length. The left kidney is mildly lobulated. The cortex is of normal thickness and echo content. There are multiple left renal cysts. The largest is medial 6.8 x 5.9 x 6.2 cm simple appearing cyst. No solid lesions or calculi are noted. There is a trace amount of fluid in the collecting system without hydronephrosis. There is a 2.0 x 2.2 x 2.1 cm hypoechoic nodule between the upper pole of the left kidney and the spleen. This could be a small accessory spleen, adrenal nodule or abnormal lymph node. The gallbladder is incidentally noted to be abnormally enlarged and contains at least one small stone measuring 10 mm in diameter. IMPRESSION: 1. Unremarkable right kidney. 2. Multiple left renal cysts. The largest is a simple appearing 6.8 cm cyst. 3. The gallbladder is incidentally noted to be abnormally enlarged and contains at least one small stone. 4. There is a nonspecific 2.2 cm hypoechoic nodule between the upper pole of the left kidney and the spleen that could be a small accessory spleen, adrenal nodule or abnormal lymph node. Narrative Procedure Note Nelida Ardon MD - 04/22/2025 IMPRESSION: Please see below. Exam: US RENAL Date/Time of Exam: 04/22/2025 1:19 PM Reason For Exam: Acute Renal Failure. Diagnosis: See Reason for Exam. Findings: There are no comparisons. Right kidney: Unremarkable. The right kidney measures 13.0 cm in length. The right kidney is mildly lobulated. The cortex is of normal thickness and echo content. No cystic or solid lesions or calculi are noted. There is no hydronephrosis. Left kidney: Remarkable. The left kidney measures 14.1 cm in length. The left kidney is mildly lobulated. The cortex is of normal thickness and echo content. There are multiple left renal cysts. The largest is medial 6.8 x 5.9 x 6.2 cm simple appearing cyst. No solid lesions or calculi are noted. There is a trace amount of fluid in the collecting system without hydronephrosis. There is a 2.0 x 2.2 x 2.1 cm hypoechoic nodule between the upper pole of the left kidney and the spleen. This could be a small accessory spleen, adrenal nodule or abnormal lymph node. The gallbladder is incidentally noted to be abnormally enlarged and contains at least one small stone measuring 10 mm in diameter. IMPRESSION: 1. Unremarkable right kidney. 2. Multiple left renal cysts. The largest is a simple appearing 6.8 cm cyst. 3. The gallbladder is incidentally noted to be abnormally enlarged and contains at least one small stone. 4. There is a nonspecific 2.2 cm hypoechoic nodule between the upper pole of the left kidney and the spleen that could be a small accessory spleen, adrenal nodule or abnormal lymph node. us Uvaldo Huber MD US ORDERABLES Final Result * EXTRA TUBE (URINE MELENDEZ) (04/22/2025 1:04 PM BANANA EXPERT) Urine URINE SPECIMEN OBTAINED BY CLEAN CATCH PROCEDURE / Unknown Collection / Unknown 04/22/2025 1:04 PM BANANA EXPERT 04/22/2025 1:13 PM BANANA EXPERT Uvaldo Huber MD URINE ORDERABLES Final Resul t Performing Organization Address [facility]/ZIP Co de Phone Number [facility] CLIA # [id number] [address] [address] * (ABNORMAL) PROTEIN/CREATININE RATIO, URINE (04/22/2025 1:04 PM BANANA EXPERT) PROTEIN CONCENTRATION 75(H) 0 - 20 mg/dL 04/22/2025 1:56 PM BANANA EXPERT [facility] CREATININE, URINE 15.3(L) 40.0 - 278.0 mg/dL 04/22/2025 1:56 PM [facility] Comment:Reference Range vari es with fluid intake and diet. PROTEIN/CREAT RATIO, URINE 4.90(H) 0.00 - 0.19 mg/mg Creatinine 04/22/2025 1:56 PM BANANA EXPERT [facility] Urine URINE SPECIMEN OBTAINED BY CLEAN CATCH PROCEDURE / Unknown Collection / Unknown 04/22/2025 1:04 PM BANANA EXPERT 04/22/2025 1:13 PM BANANA EXPERT Uvaldo Huber MD URINE ORDERABLES Final Resul t Performing Organization Address [facility] Co de Phone Number [facility] CLIA # [id number] [address] [address] * (ABNORMAL) URINALYSIS WITH REFLEX MICROSCOPIC (04/22/2025 1:04 PM BANANA EXPERT) COLOR UA Colorless(A ) Pale to Dark Yellow 04/22/2025 1:23 PM [facility] CLARITY UA Cloudy(A) Clear 04/22/2025 1:23 PM [facility] SPECIFIC GRAVITY UA 1.008 1.003 - 1.035 04/22/2025 1:23 PM BANANA EXPERT [facility] PH UA 6.0 5.0 - 8.0 04/22/2025 1:23 PM [facility] LEUKOCYTE ESTERASE UA 3+(A) Negative 04/22/2025 1:23 PM [facility] NITRITE UA Negative Negative 04/22/2025 1:23 PM [facility] PROTEIN UA 1+(A) Negative 04/22/2025 1:23 PM [facility] GLUCOSE UA Negative Negative 04/22/2025 1:23 PM BANANA EXPERT [facility] KETONES UA Negative Negative 04/22/2025 1:23 PM [facility] UROBILINOGEN UA <2.0 <2.0 mg/dL 1:23 PM BANANA EXPERT [facility] BILIRUBIN UA Negative Negative 04/22/2025 1:23 PM [facility] BLOOD UA 3+(A) Negative 04/22/2025 1:23 PM [facility] WBC UA >100(A) 0 - 2 /hpf 04/22/2025 1:23 PM [facility] RBC UA >100(A) 0 - 2 /hpf 04/22/2025 1:23 PM [facility] BACTERIA UA 1+(A) Negative /hpf 04/22/2025 1:23 PM [facility] HYALINE CAST 0-2 None Seen, 0-2 /lpf 04/22/2025 1:23 PM [facility] Urine URINE SPECIMEN OBTAINED BY CLEAN CATCH PROCEDURE / Unknown Collection / Unknown 04/22/2025 1:04 PM BANANA EXPERT 04/22/2025 1:13 PM BANANA EXPERT us Uvaldo Huber MD URINE ORDERABLES Final Resul t [facility] CLIA # [id number] [facility] [address] [place], [place] [address] * (ABNORMAL) UREA NITROGEN/CREATININE RATIO, URINE (04/22/2025 1:04 PM BANANA EXPERT) UREA NITROGEN, URINE 156 mg/dL 04/22/2025 1:55 PM BANANA EXPERT [facility] Comment:Reference range not established CREATININE, URINE 15.3(L) 40.0 - 278.0 mg/dL 04/22/2025 1:55 PM BANANA EXPERT [facility] Comment:Reference Range vari es with fluid intake and diet. UREA/CREAT RATIO, UR 10.2 mg/mg Creatinine 04/22/2025 1:55 PM BANANA EXPERT [facility] Urine URINE SPECIMEN OBTAINED BY CLEAN CATCH PROCEDURE / Unknown Collection / Unknown 04/22/2025 1:04 PM BANANA EXPERT 04/22/2025 1:13 PM BANANA EXPERT Gregorio Rogers MD URINE ORDERABLES Fin al Result Performing Organization Address City/[facility]/ZIP Co de Phone Number [facility] CLIA # [id number] [address] [address] [place] [address] * SODIUM, RANDOM URINE (04/22/2025 1:04 PM BANANA EXPERT) SODIUM, URINE 122 mmol/L 04/22/2025 1:56 PM BANANA EXPERT [facility] Comment:Reference range not established Urine URINE SPECIMEN OBTAINED BY CLEAN CATCH PROCEDURE / Unknown Collection / Unknown 04/22/2025 1:04 PM BANANA EXPERT 04/22/2025 1:13 PM BANANA EXPERT Gregorio Rogers MD URINE ORDERABLES Fin al Result [facility] CLIA # [id number] [address] [address] * ECHOCARDIOGRAM W/ CONTRAST AGENT (04/22/2025 10:37 AM BANANA EXPERT) EJECTION FRACTION 30 INTERFACE SYSTEM 04/22/2025 9:42 AM [facility] Pedro INTERFACE SYSTEM - 04/22/2025 11:20 AM [facility] Cardiovascular Services Echocardiography Laboratory [facility] [place] [address] Transthoracic Echocardiography Patient: Kristopher Leblanc Study ID: ECHO COMPLETE - Gender: M : 02/28/1958 Age: 67 Room: [facility] Study Date: 04/22/2025 Pt Status: Inpatient Study Time: 09:42:33 AM [facility] #: [id number] Ordering:Tara Jiang Aws Software Development Engineer: ELLIOTT Indications and History: HF, Cardiomyopathy; Initial evaluation of known or suspected HF/cardiomyopathy (restrictiv, infiltrative, dilated, hypertrophic). Summary and Conclusion: - Left ventricle: The cavity size is mildly to moderately dilated. Wall thickness is increased in a pattern of mild LVH. Global systolic function is moderately to severely reduced. For Epic reporting: the left ventricular ejection fraction is 30% by visual assessment. Regional wall motion difficult to determine despite echo contrast. Interventricular septum shows abnormal bouncy motion. Findings consistent with left ventricular diastolic dysfunction. - Right ventricle: The cavity size is mildly dilated. Systolic function is low normal to reduced. Systolic pressure is mildly increased. The estimated peak pressure is 36mm Hg. - Left atrium: The atrium is moderately dilated. - Right atrium: The atrium is mildly dilated. - Mitral valve: The annulus is mildly to moderately calcified. There is trivial to mild regurgitation. - Tricuspid valve: There is mild regurgitation. - Pulmonic valve: There is mild regurgitation. Comparison: No previous study was available for comparison. Procedure information: No prior study is available for comparison. Study status: Routine. Procedure: A transthoracic echocardiogram was performed. Image quality was adequate. The study was technically limited due to poor acoustic window availability. Scanning was performed from the parasternal, apical, subcostal, and suprasternal notch acoustic windows. Intravenous contrast (Definity) was administered. There were no contrast reactions. Study components: M-mode, 2D, complete spectral Doppler, and color Doppler. Height: 180.3cm. Height: 71in. Weight: 142.1kg. Weight: 313.3lb. BMI: 43.7kg/m^2. BSA: 2.73m^2. Blood pressure: 95/73 Study date: 04/22/2025. Study time: 09:42 AM. Location: Echo laboratory. Cardiac Anatomy: LEFT VENTRICLE: The cavity size is mildly to moderately dilated. Wall thickness is increased in a pattern of mild LVH. Global systolic function is moderately to severely reduced. For Epic reporting: the left ventricular ejection fraction is 30% by visual assessment. Regional wall motion difficult to determine despite echo contrast. Interventricular septum shows abnormal bouncy motion. Findings consistent with left ventricular diastolic dysfunction. RIGHT VENTRICLE: The cavity size is mildly dilated. Systolic function is low normal to reduced. Systolic pressure is mildly increased. The estimated peak pressure is 36mm Hg. LEFT ATRIUM: The atrium is moderately dilated. RIGHT ATRIUM: The atrium is mildly dilated. ATRIAL SEPTUM: No obvious PFO or ASD identified by 2D imaging and color Doppler. AORTIC VALVE: Not well visualized. The valve is probably trileaflet. There is no stenosis. There is no significant regurgitation. MITRAL VALVE: The annulus is mildly to moderately calcified. There is no evidence for stenosis. There is trivial to mild regurgitation. TRICUSPID VALVE: Structurally normal valve. Mobility is unrestricted. There is no evidence for stenosis. There is mild regurgitation. PULMONIC VALVE: Not well visualized. The valve appears to be grossly normal. There is no evidence for stenosis. There is mild regurgitation. PERICARDIUM: There is no pericardial effusion. AORTA: Aortic root: The root is not dilated. Aortic arch: The vessel is not dilated. Measurements Left ventricle Value Right ventricle Value ESD, LAX 5.7 cm PAYTON, LAX 3.2 cm ESD/bsa, LAX 2.1 cm/m^2 PAYTON minor ax, A4C base 6.0 cm FS, LAX 14 % PAYTON minor ax, A4C mid 4.0 cm FS, LAX chord 14 % PAYTON 3.2 cm ESD major ax, A4C 8.0 cm TAPSE, 2D 2.3 cm ESD/bsa major ax, A4C 2.9 cm/m^2 TAPSE, MM 2.3 cm PAYTON minor ax, A4C 8.0 cm S' lateral 11.7 cm/sec PAYTON/bsa minor ax, A4C 2.9 cm/m^2 SETH, A4C 57.3 cm^2 Left atrium Value OSVALDO, A4C 41.6 cm^2 AP dim, ES 5.5 cm FAC, A4C 27 % AP dim index, ES 2.0 cm/m^2 PAYTON major ax, A2C 9.7 cm Area ES, A4C 32 cm^2 PAYTON/bsa major ax, A2C 3.5 cm/m^2 SI dim, A2C 7.1 cm SETH, A2C 62.3 cm^2 Vol, ES, 1-p A4C 110 ml OSVALDO, A2C 50.6 cm^2 Vol/bsa, ES, 1-p A4C 40 ml/m^2 FAC, A2C 19 % Vol, ES, 1-p A2C 108 ml IVS, ED 1.2 cm Vol/bsa, ES, 1-p A2C 39 ml/m^2 PW, ED 1.2 cm Vol, ES, 2-p 111 ml IVS/PW, ED 1.01 Vol/bsa, ES, 2-p 41 ml/m^2 EDV 221 ml ESV 157 ml Right atrium Value EF 29 % Area, ES, A4C 27 cm^2 SV 57 ml EDV/bsa 81 ml/m^2 Aortic valve Value ESV/bsa 57 ml/m^2 Mean v, S 101 cm/sec SV/bsa 21 ml/m^2 VTI, S 27.3 cm EDV, 1-p A2C 327 ml Mean grad, S 6 mm Hg ESV, 1-p A2C 105 ml LVOT/AV, VTI ratio 0.67 EF, 1-p A2C 32 % BRIANNA, VTI 2.08 cm^2 SV, 1-p A2C 64 ml BRIANNA/bsa, VTI 0.76 cm^2/m^2 EDV/bsa, 1-p A2C 120 ml/m^2 ESV/bsa, 1-p A2C 38 ml/m^2 Mitral valve Value SV/bsa, 1-p A2C 23.4 ml/m^2 Mean v, D 47 cm/sec EDV, 1-p A4C 278 ml Peak E 98.8 cm/sec ESV, 1-p A4C 175 ml Peak A 31.5 cm/sec EF, 1-p A4C 37 % VTI leaflet coapt 21.9 cm SV, 1-p A4C 103 ml MiV/LVOT VTI 1.2 EDV/bsa, 1-p A4C 102 ml/m^2 Decel time 166 ms ESV/bsa, 1-p A4C 64 ml/m^2 Mean grad, D 1 mm Hg SV/bsa, 1-p A4C 38 ml/m^2 Peak grad, D 4 mm Hg EDV, 2-p 302 ml Peak E/A ratio 3.1 ESV, 2-p 213 ml E-VTI 21.9 cm EF, 2-p 30 % A-VTI 21.9 cm SV, 2-p 89 ml VTI E/A 1.0 EDV/bsa, 2-p 110 ml/m^2 MVA 2.6 cm^2 ESV/bsa, 2-p 78 ml/m^2 MVA/bsa 0.95 cm^2/m^2 SV/bsa, 2-p 40.4 ml/m^2 MVA, LVOT cont 2.6 cm^2 EDV, MM Teich. 221 ml MVA/bsa, LVOT cont 0.95 cm^2/m^2 EF, MM Teich. 29 % Melia VTI 21.9 cm EDV/bsa, MM Teich. 81 ml/m^2 Vena contracta width 3.2 cm EF, MM on 2D Teich. 29 % E', lat melia, TDI 6.3 cm/sec Tricuspid valve Value E/e', lat melia, TDI 16 TR vena contracta width 2.0 cm E', med melia, TDI 4.7 cm/sec Peak RV-RA grad, S 44 mm Hg E/e', med melia, TDI 21 E', avg, TDI 5.5 cm/sec Aortic root Value E/e', avg, TDI 18 S-T junct diam, ED 3.0 cm S-T junct diam/bsa, ED 1.1 cm/m^2 LVOT Value Diam, S 2.0 cm Ascending aorta Value Area 3.1 cm^2 AAo AP diam, S 3.4 cm Peak puja, S 122 cm/sec AAo AP diam/bsa, S 1.2 cm/m^2 VTI, S 18.3 cm Peak grad, S 6 mm Hg Descending aorta Value SV 57 ml Galo diam 4.0 cm SV/bsa 21 ml/m^2 Legend: (L) and (H) pasquale values outside specified reference range. [facility] are accredited with the [facility] Accreditation Commission - Echocardiography. Prepared and Electronically Authenticated Carlos Brownlee Confirmed 04/22/2025 11:20 Procedure Note Carlos Brownlee MD - 04/22/2025 [facility] Cardiovascular Services Echocardiography Laboratory [address] [place] [address] Transthoracic Echocardiography Patient: Kristopher Leblanc Study ID: ECHO COMPLETE- Gender: Jayleen : 02/28/1958 Age: 67 Room: [facility] Study Date: 04/22/2025 Pt Status: Inpatient Study Time: 09:42:33 AM CSN #: [id number] Ordering:Tara Jiang Aws Software Development Engineer: ELLIOTT Indications and History: HF, Cardiomyopathy; Initial evaluation ofknown or suspected HF/cardiomyopathy (restrictiv, infiltrative, dilated, hypertrophic). Summary and Conclusion: - Left ventricle: The cavity size is mildly to moderately dilated. Wall thickness is increased in a pattern of mild LVH. Global systolicfunction is moderately to severely reduced. For Epic reporting: the leftventricular ejection fraction is 30% by visual assessment. Regional wall motion difficult to determine despite echo contrast. Interventricular septumshows abnormal bouncy motion. Findings consistent with left ventriculardiastolic dysfunction. - Right ventricle: The cavity size is mildly dilated. Systolic function islow normal to reduced. Systolic pressure is mildly increased. The estimatedpeak pressure is 36mm Hg. - Left atrium: The atrium is moderately dilated. - Right atrium: The atrium is mildly dilated. - Mitral valve: The annulus is mildly to moderately calcified. There is trivial to mild regurgitation. - Tricuspid valve: There is mild regurgitation. - Pulmonic valve: There is mild regurgitation. Comparison: No previous study was available for comparison. Procedure information: No prior study is available for comparison.Study status: Routine. Procedure: A transthoracic echocardiogram wasperformed. Image quality was adequate. The study was technically limited due topoor acoustic window availability. Scanning was performed from theparasternal, apical, subcostal, and suprasternal notch acoustic windows. Intravenous contrast (Definity) was administered. There were no contrast reactions. Study components: M-mode, 2D, complete spectral Doppler, and colorDoppler. Height: 180.3cm. Height: 71in. Weight: 142.1kg. Weight: 313.3lb.BMI: 43.7kg/m^2. BSA: 2.73m^2. Blood pressure: 95/73 Study date: 04/22/2025. Study time: 09:42 AM. Location: Echo laboratory. Cardiac Anatomy: LEFT VENTRICLE: The cavity size is mildly to moderately dilated. Wall thickness is increased in a pattern of mild LVH. Global systolic functionis moderately to severely reduced. For Epic reporting: the left ventricular ejection fraction is 30% by visual assessment. Regional wall motiondifficult to determine despite echo contrast. Interventricular septum showsabnormal bouncy motion. Findings consistent with left ventricular diastolic dysfunction. RIGHT VENTRICLE: The cavity size is mildly dilated. Systolic function islow normal to reduced. Systolic pressure is mildly increased. The estimatedpeak pressure is 36mm Hg. LEFT ATRIUM: The atrium is moderately dilated. RIGHT ATRIUM: The atrium is mildly dilated. ATRIAL SEPTUM: No obvious PFO or ASD identified by 2D imaging and color Doppler. AORTIC VALVE: Not well visualized. The valve is probably trileaflet.There is no stenosis. There is no significant regurgitation. MITRAL VALVE: The annulus is mildly to moderately calcified. There isno evidence for stenosis. There is trivial to mild regurgitation. TRICUSPID VALVE: Structurally normal valve. Mobility isunrestricted. There is no evidence for stenosis. There is mild regurgitation. PULMONIC VALVE: Not well visualized. The valve appears to be grosslynormal. There is no evidence for stenosis. There is mild regurgitation. PERICARDIUM: There is no pericardial effusion. AORTA: Aortic root: The root is not dilated. Aortic arch: The vessel is not dilated. Measurements Left ventricle Value Right ventricle Value ESD, LAX 5.7 cm PAYTON, LAX 3.2 cm ESD/bsa, LAX 2.1 cm/m^2 PAYTON minor ax, A4C base 6.0 cm FS, LAX 14 % PAYTON minor ax, A4C mid 4.0 cm FS, LAX chord 14 % PAYTON 3.2 cm ESD major ax, A4C 8.0 cm TAPSE, 2D 2.3 cm ESD/bsa major ax, A4C 2.9 cm/m^2 TAPSE, MM 2.3 cm PAYTON minor ax, A4C 8.0 cm S' lateral 11.7cm/sec PAYTON/bsa minor ax, A4C 2.9 cm/m^2 SETH, A4C 57.3 cm^2 Left atrium Value OSVALDO, A4C 41.6 cm^2 AP dim, ES 5.5 cm FAC, A4C 27 % AP dim index, ES 2.0cm/m^2 PAYTON major ax, A2C 9.7 cm Area ES, A4C 32cm^2 PAYTON/bsa major ax, A2C 3.5 cm/m^2 SI dim, A2C 7.1 cm SETH, A2C 62.3 cm^2 Vol, ES, 1-p A4C 110 ml OSVALDO, A2C 50.6 cm^2 Vol/bsa, ES, 1-p A4C 40ml/m^2 FAC, A2C 19 % Vol, ES, 1-p A2C 108 ml IVS, ED 1.2 cm Vol/bsa, ES, 1-p A2C 39ml/m^2 PW, ED 1.2 cm Vol, ES, 2-p 111 ml IVS/PW, ED 1.01 Vol/bsa, ES, 2-p 41ml/m^2 EDV 221 ml ESV 157 ml Right atrium Value EF 29 % Area, ES, A4C 27cm^2 SV 57 ml EDV/bsa 81 ml/m^2 Aortic valve Value ESV/bsa 57 ml/m^2 Mean v, S 101cm/sec SV/bsa 21 ml/m^2 VTI, S 27.3 cm EDV, 1-p A2C 327 ml Mean grad, S 6 mmHg ESV, 1-p A2C 105 ml LVOT/AV, VTI ratio 0.67 EF, 1-p A2C 32 % BRIANNA, VTI 2.08cm^2 SV, 1-p A2C 64 ml BRIANNA/bsa, VTI 0.76cm^2/m^2 EDV/bsa, 1-p A2C 120 ml/m^2 ESV/bsa, 1-p A2C 38 ml/m^2 Mitral valve Value SV/bsa, 1-p A2C 23.4 ml/m^2 Mean v, D 47cm/sec EDV, 1-p A4C 278 ml Peak E 98.8cm/sec ESV, 1-p A4C 175 ml Peak A 31.5cm/sec EF, 1-p A4C 37 % VTI leaflet coapt 21.9 cm SV, 1-p A4C 103 ml MiV/LVOT VTI 1.2 EDV/bsa, 1-p A4C 102 ml/m^2 Decel time 166 ms ESV/bsa, 1-p A4C 64 ml/m^2 Mean grad, D 1 mmHg SV/bsa, 1-p A4C 38 ml/m^2 Peak grad, D 4 mmHg EDV, 2-p 302 ml Peak E/A ratio 3.1 ESV, 2-p 213 ml E-VTI 21.9 cm EF, 2-p 30 % A-VTI 21.9 cm SV, 2-p 89 ml VTI E/A 1.0 EDV/bsa, 2-p 110 ml/m^2 MVA 2.6cm^2 ESV/bsa, 2-p 78 ml/m^2 MVA/bsa 0.95cm^2/m^2 SV/bsa, 2-p 40.4 ml/m^2 MVA, LVOT cont 2.6cm^2 EDV, MM Teich. 221 ml MVA/bsa, LVOT cont 0.95cm^2/m^2 EF, MM Teich. 29 % Melia VTI 21.9 cm EDV/bsa, MM Teich. 81 ml/m^2 Vena contracta width 3.2 cm EF, MM on 2D Teich. 29 % E', lat melia, TDI 6.3 cm/sec Tricuspid valve Value E/e', lat melia, TDI 16 TR vena contracta width 2.0 cm E', med melia, TDI 4.7 cm/sec Peak RV-RA grad, S 44 mmHg E/e', med melia, TDI 21 E', avg, TDI 5.5 cm/sec Aortic root Value E/e', avg, TDI 18 S-T junct diam, ED 3.0 cm S-T junct diam/bsa, ED 1.1cm/m^2 LVOT Value Diam, S 2.0 cm Ascending aorta Value Area 3.1 cm^2 AAo AP diam, S 3.4 cm Peak puja, S 122 cm/sec AAo AP diam/bsa, S 1.2cm/m^2 VTI, S 18.3 cm Peak grad, S 6 mm Hg Descending aorta Value SV 57 ml Galo diam 4.0 cm SV/bsa 21 ml/m^2 Legend: (L) and (H) pasquale values outside specified reference range. [facility] are accredited with the[employer]tersocietal Accreditation Commission - Echocardiography. Prepared and Electronically Authenticated Carlos Brownlee Confirmed 04/22/2025 11:20 us Tara Jiang MD ORDERABLES Final Result INTERFACE SYSTEM Refer to clinic/hospital department * MAGNESIUM LEVEL (04/22/2025 4:45 AM BANANA EXPERT) Pathologist [facility] MAGNESIUM 2.0 1.6 - 2.4 mg/dL 04/22/2025 5:35 AM BANANA EXPERT [facility] Blood Venipuncture / Unknown 04/22/2025 4:45 AM BANANA EXPERT 04/22/2025 4:58 AM BANANA EXPERT us Rishabh Reed MD CHEMISTRY ORDERABLES Final Result [facility] CLIA # [id number] [facility] [address] [place] [address] * (ABNORMAL) BASIC METABOLIC PANEL (04/22/2025 4:45 AM BANANA EXPERT) Pathologist [facility] SODIUM 136 136 - 145 mmol/L 04/22/2025 5:35 AM [facility] POTASSIUM 3.3(L) 3.5 - 5.1 mmol/L 04/22/2025 5:35 AM [facility] CHLORIDE 97(L) 98 - 107 mmol/L 04/22/2025 5:35 AM [facility] CO2 20(L) 22 - 29 mmol/L 04/22/2025 5:35 AM [facility] CALCIUM 10.2 8.8 - 10.2 mg/dL 04/22/2025 5:35 AM [facility] BUN 102(H) 8 - 23 mg/dL 04/22/2025 5:35 AM [facility] CREATININE 3.14(H) 0.67 - 1.17 mg/dL 04/22/2025 5:35 AM [facility] GLUCOSE 155(H) 74 - 99 mg/dL 04/22/2025 5:35 AM [facility] GFR 21(L) >=60 mL/min/1. 73 sq meter 04/22/2025 5:35 AM [facility] Comment:eGFR calculated with 2020 CKD-EPI equation. Vegetarian diet, extremely high or low muscle mass, and may affect results. Cystatin C with Glomerular Filtration Rate is a suitable alternative for these patients. ANION GAP 19 9 - 20 mmol/L 04/22/2025 5:35 AM [facility] Blood Venipuncture / Unknown 04/22/2025 4:45 AM BANANA EXPERT 04/22/2025 4:58 AM BANANA EXPERT us Rishabh Reed MD CHEMISTRY ORDERABLES Final Result [facility] CLIA # [id number] [address] [address] [place] [address] * (ABNORMAL) CBC WITH DIFFERENTIAL (04/22/2025 4:45 AM BANANA EXPERT) [facility] WBC 8.1 4.8 - 10.8 K/uL 04/22/2025 5:15 AM [facility] RBC 3.27(L) 4.60 - 6.20 M/uL 04/22/2025 5:15 AM [facility] HEMOGLOBIN 8.5(L) 14.0 - 18.0 g/dL 04/22/2025 5:15 AM [facility] HEMATOCRIT 28.6(L) 41.0 - 53.0 % 04/22/2025 5:15 AM [facility] MCV 87.5 84.0 - 103.0 fL 04/22/2025 5:15 AM [facility] MCH 26.0(L) 27.0 - 34.0 pg 04/22/2025 5:15 AM [facility] MCHC 29.7(L) 30.0 - 35.0 g/dL 04/22/2025 5:15 AM [facility] PLATELETS 201 140 - 440 K/uL 04/22/2025 5:15 AM [facility] MPV 9.7 8.9 - 12.8 fL 04/22/2025 5:15 AM [facility] RDW 19.1(H) 11.0 - 14.5 % 04/22/2025 5:15 AM [facility] RDW-STDEV 61.1(H) 37.0 - 54.0 fL 04/22/2025 5:15 AM [facility] NEUTROPHILS 71 42 - 75 % 04/22/2025 5:15 AM [facility] LYMPHOCYTES 16(L) 24 - 44 % 04/22/2025 5:15 AM [facility] MONOCYTES 8 2 - 10 % 04/22/2025 5:15 AM [facility] EOSINOPHILS 3 0 - 7 % 04/22/2025 5:15 AM [facility] BASOPHILS 1 0 - 1 % 04/22/2025 5:15 AM [facility] IMMATURE GRANULOCYTES 1 0 - 2 % 04/22/2025 5:15 AM [facility] NEUTROPHIL ABSOLUTE 5.73 2.00 - 8.00 K/uL 04/22/2025 5:15 AM [facility] LYMPHOCYTE ABSOLUTE 1.30 1.20 - 4.00 K/uL 04/22/2025 5:15 AM [facility] MONOCYTE ABSOLUTE 0.62(H) 0.10 - 0.60 K/uL 04/22/2025 5:15 AM [facility] EOSINOPHIL ABSOLUTE 0.27 0.00 - 0.70 K/uL 04/22/2025 5:15 AM [facility] BASOPHILS ABSOLUTE 0.04 0.00 - 0.20 K/uL 04/22/2025 5:15 AM [facility] IMMATURE GRANULOCYTES ABSOLUTE 0.10 0.00 - 0.10 K/uL 04/22/2025 5:15 AM [facility] SMEAR REVIEWED: NN - No Action Needed 04/22/2025 5:15 AM [facility] Blood Venipuncture / Unknown 04/22/2025 4:45 AM [facility] 04/22/2025 4:56 AM [facility] us Rishabh Reed MD HEMATOLOGY ORDERABLES Cristy l Result [facility] CLIA # [id number] [address] [address] [place] [address] * (ABNORMAL) HEMOGLOBIN AND HEMATOCRIT (04/22/2025 12:01 AM [facility] EXPERT) HEMOGLOBIN 8.0(L) 14.0 - 18.0 g/dL 04/22/2025 12:18 AM [facility] HEMATOCRIT 26.3(L) 41.0 - 53.0 % 04/22/2025 12:18 AM [facility]PERT [facility] Blood Venipuncture / Unknown 04/22/2025 12:01 AM [facility] EXPERT 04/22/2025 12:13 AM [facility] us Gregorio Rogers MD HEMATOLOGY ORDERABLE S Final Result Performing Organization Address City/[facility]/ZIP Co de Phone Number [facility] CLIA # [id number] [address] [address] [place], [place] [id number] * (ABNORMAL) HEMOGLOBIN AND HEMATOCRIT (04/21/2025 6:13 PM [facility] EXPERT) HEMOGLOBIN 8.3(L) 14.0 - 18.0 g/dL 04/21/2025 6:44 PM [facility]PERT [facility] HEMATOCRIT 27.8(L) 41.0 - 53.0 % 04/21/2025 6:44 PM [facility]PERT [facility] Blood Venipuncture / Unknown 04/21/2025 6:13 PM [facility] EXPERT 04/21/2025 6:30 PM [facility] EXPERT us Gregorio Rogers MD HEMATOLOGY ORDERABLE S Final Result [facility] CLIA # [id number] [address] [address] [place], [place] [address] * (ABNORMAL) HEMOGLOBIN AND HEMATOCRIT (04/21/2025 12:49 PM BANANA EXPERT) HEMOGLOBIN 8.2(L) 14.0 - 18.0 g/dL 04/21/2025 12:54 PM [facility] HEMATOCRIT 27.2(L) 41.0 - 53.0 % 04/21/2025 12:54 PM BANANA EXPERT [facility] Blood Venipuncture / Unknown 04/21/2025 12:49 PM BANANA EXPERT 04/21/2025 12:52 PM BANANA EXPERT us Gregorio Rogers MD HEMATOLOGY ORDERABLE S Final Result [facility] CLIA # [id number] [address] [id number] * US VENOUS DOPPLER LEG BILATERAL (04/21/2025 12:05 PM BANANA EXPERT) Anatomical Region Laterality Modality Lower Extremity Ultrasound 04/21/2025 10:2 9 AM BANANA EXPERT Narrative 04/26/2025 11:58 AM [facility] Cardiovascular Services Noninvasive Vascular Laboratory [address] [place] [address] Noninvasive Vascular Lab Venous Exam Complete Lower Extremity Duplex Patient: Kristopher Leblanc Study ID: US VENOUS DOPPLE Gender: M : 02/28/1958 Age: 67 Room: Height: Weight: BSA: Pt status: Inpatient Study Date: 04/21/2025 Study Time: 10:29:04 AM BSA: Ordering: Maricruz Galvan Interpreting:Leon Mckeon Aws Software Development Engineer: Nahomi Howell Indications: [place]. Summary Doppler venous of the lower extremities demonstrates flow which is spontaneous, phasic and augments well. Competence is demonstrated. No pulsatility is noted. Imaging of the bilateral extremities demonstrated compressibility for the deep and superficial systems. No intraluminal echoes are noted. Impression: No evidence of deep or superficial venous thrombosis involving the right lower extremity and left lower extremity. Study data: Complete lower extremity venous duplex evaluation. Doppler flow study including spectral analysis, color and melendez scale imaging. Location: Bedside. Patient status: Inpatient. Study status: Routine. Procedure: A vascular evaluation was performed. Image quality was good. Venous flow and imaging: - Right common femoral Patent; Normal phasicity; spontaneous; compressible; normal augmentation - Right profunda femoral Patent; Normal phasicity; spontaneous; compressible; normal augmentation - Right femoral Patent; Normal phasicity; spontaneous; compressible; normal augmentation - Right popliteal Patent; Normal phasicity; spontaneous; compressible; normal augmentation - Right posterior tibial Patent; Compressible; normal augmentation - Right peroneal Patent; Compressible; normal augmentation - Right great saphenous Patent; Normal phasicity; spontaneous; compressible; normal augmentation - Left common femoral Patent; Normal phasicity; spontaneous; compressible; normal augmentation - Left profunda femoral Patent; Normal phasicity; spontaneous; compressible; normal augmentation - Left femoral Patent; Normal phasicity; spontaneous; compressible; normal augmentation - Left popliteal Patent; Normal phasicity; spontaneous; compressible; normal augmentation - Left posterior tibial Patent; Compressible; normal augmentation - Left peroneal Patent; Compressible; normal augmentation - Left great saphenous Patent; Normal phasicity; spontaneous; compressible; normal augmentation [facility] Vascular Lab is accredited with the Intersocietal Commission for the Accreditation of Vascular Laboratories (ICAVL) Prepared and Electronically Authenticated Leon Mckeon Confirmed 04/26/2025 11:58 Procedure Note Leon Mckeon MD - 04/26/2025 [facility] Cardiovascular Services Noninvasive Vascular Laboratory [address] [place] [address] Noninvasive Vascular Lab Venous Exam Complete Lower Extremity Duplex Patient: Kristopher Leblanc Study ID: US VENOUS DOPPLE Gender: M : 02/28/1958 Age: 67 Room: Height: Weight: BSA: Pt status: Inpatient Study Date: 04/21/2025 Study Time: 10:29:04 AM BSA: Ordering: Maricruz Galvan Interpreting:Leon Mckeon Aws Software Development Engineer: Nahomi Howell Indications: [place]. Summary Doppler venous of the lower extremities demonstrates flow which is spontaneous, phasic and augments well. Competence is demonstrated. No pulsatility is noted. Imaging of the bilateral extremities demonstrated compressibility for the deep and superficial systems. No intraluminalechoes are noted. Impression: No evidence of deep or superficial venous thrombosis involving the rightlower extremity and left lower extremity. Study data: Complete lower extremity venous duplex evaluation.Doppler flow study including spectral analysis, color and melendez scale imaging. Location: Bedside. Patient status: Inpatient. Study status:Routine. Procedure: A vascular evaluation was performed. Image quality was good. Venous flow and imaging: - Right common femoral Patent; Normal phasicity; spontaneous;compressible; normal augmentation - Right profunda femoral Patent; Normal phasicity; spontaneous;compressible; normal augmentation - Right femoral Patent; Normal phasicity; spontaneous; compressible;normal augmentation - Right popliteal Patent; Normal phasicity; spontaneous; compressible;normal augmentation - Right posterior tibial Patent; Compressible; normal augmentation - Right peroneal Patent; Compressible; normal augmentation - Right great saphenous Patent; Normal phasicity; spontaneous;compressible; normal augmentation - Left common femoral Patent; Normal phasicity; spontaneous;compressible; normal augmentation - Left profunda femoral Patent; Normal phasicity; spontaneous;compressible; normal augmentation - Left femoral Patent; Normal phasicity; spontaneous; compressible;normal augmentation - Left popliteal Patent; Normal phasicity; spontaneous; compressible;normal augmentation - Left posterior tibial Patent; Compressible; normal augmentation - Left peroneal Patent; Compressible; normal augmentation - Left great saphenous Patent; Normal phasicity; spontaneous;compressible; normal augmentation [facility] Vascular Lab is accredited with theIntersocietal Commission for the Accreditation of Vascular Laboratories (ICAVL) Prepared and Electronically Authenticated Leon Mckeon Confirmed 04/26/2025 11:58 us Maricruz Galvan MD US ORDERABLES Final Result * MAGNESIUM LEVEL (04/21/2025 4:39 AM BANANA EXPERT) MAGNESIUM 1.9 1.6 - 2.4 mg/dL 04/21/2025 5:30 AM BANANA EXPERT [facility] Blood Venipuncture / Unknown 04/21/2025 4:39 AM BANANA EXPERT 04/21/2025 4:56 AM BANANA EXPERT us Rishabh Reed MD CHEMISTRY ORDERABLES Final Result [facility] CLIA # [id number] [address] [place] [address] [place] [address] * (ABNORMAL) BASIC METABOLIC PANEL (04/21/2025 4:39 AM BANANA EXPERT) SODIUM 134(L) 136 - 145 mmol/L 04/21/2025 5:30 AM [facility] POTASSIUM 3.9 3.5 - 5.1 mmol/L 04/21/2025 5:30 AM [facility] CHLORIDE 96(L) 98 - 107 mmol/L 04/21/2025 5:30 AM [facility] CO2 20(L) 22 - 29 mmol/L 04/21/2025 5:30 AM [facility] CALCIUM 10.3(H) 8.8 - 10.2 mg/dL 04/21/2025 5:30 AM [facility] BUN 101(H) 8 - 23 mg/dL 04/21/2025 5:30 AM [facility] CREATININE 3.10(H) 0.67 - 1.17 mg/dL 04/21/2025 5:30 AM [facility] GLUCOSE 192(H) 74 - 99 mg/dL 04/21/2025 5:30 AM [facility] GFR 21(L) >=60 mL/min/1. 73 sq meter 04/21/2025 5:30 AM [facility] Comment:eGFR calculated with 2020 CKD-EPI equation. Vegetarian diet, extremely high or low muscle mass, and may affect results. Cystatin C with Glomerular Filtration Rate is a suitable alternative for these patients. ANION GAP 18 9 - 20 mmol/L 04/21/2025 5:30 AM [facility] Blood Venipuncture / Unknown 04/21/2025 4:39 AM BANANA EXPERT 04/21/2025 4:56 AM BANANA EXPERT us Rishabh Reed MD CHEMISTRY ORDERABLES Final Result [facility] CLIA # [id number] [facility] [place] [address] * (ABNORMAL) CBC WITH DIFFERENTIAL (04/21/2025 4:39 AM BANANA EXPERT) [facility] WBC 9.5 4.8 - 10.8 K/uL 04/21/2025 4:58 AM [facility] RBC 3.25(L) 4.60 - 6.20 M/uL 04/21/2025 4:58 AM [facility] HEMOGLOBIN 8.5(L) 14.0 - 18.0 g/dL 04/21/2025 4:58 AM [facility] HEMATOCRIT 28.8(L) 41.0 - 53.0 % 04/21/2025 4:58 AM [facility] MCV 88.6 84.0 - 103.0 fL 04/21/2025 4:58 AM [facility] MCH 26.2(L) 27.0 - 34.0 pg 04/21/2025 4:58 AM [facility] MCHC 29.5(L) 30.0 - 35.0 g/dL 04/21/2025 4:58 AM [facility] PLATELETS 227 140 - 440 K/uL 04/21/2025 4:58 AM [facility] MPV 9.7 8.9 - 12.8 fL 04/21/2025 4:58 AM [facility] RDW 19.2(H) 11.0 - 14.5 % 04/21/2025 4:58 AM [facility] RDW-STDEV 62.7(H) 37.0 - 54.0 fL 04/21/2025 4:58 AM [facility] NEUTROPHILS 80(H) 42 - 75 % 04/21/2025 4:58 AM [facility] LYMPHOCYTES 11(L) 24 - 44 % 04/21/2025 4:58 AM [facility] MONOCYTES 6 2 - 10 % 04/21/2025 4:58 AM [facility] EOSINOPHILS 2 0 - 7 % 04/21/2025 4:58 AM [facility] BASOPHILS 0 0 - 1 % 04/21/2025 4:58 AM [facility] IMMATURE GRANULOCYTES 1 0 - 2 % 04/21/2025 4:58 AM [facility] NEUTROPHIL ABSOLUTE 7.53 2.00 - 8.00 K/uL 04/21/2025 4:58 AM [facility] LYMPHOCYTE ABSOLUTE 1.03(L) 1.20 - 4.00 K/uL 04/21/2025 4:58 AM [facility] MONOCYTE ABSOLUTE 0.61(H) 0.10 - 0.60 K/uL 04/21/2025 4:58 AM [facility] EOSINOPHIL ABSOLUTE 0.19 0.00 - 0.70 K/uL 04/21/2025 4:58 AM [facility] BASOPHILS ABSOLUTE 0.03 0.00 - 0.20 K/uL 04/21/2025 4:58 AM [facility] IMMATURE GRANULOCYTES ABSOLUTE 0.09 0.00 - 0.10 K/uL 04/21/2025 4:58 AM [facility] SMEAR REVIEWED: NN - No Action Needed 04/21/2025 4:58 AM [facility] Blood Venipuncture / Unknown 04/21/2025 4:39 AM BANANA EXPERT 04/21/2025 4:50 AM [facility] us Rishabh Reed MD HEMATOLOGY ORDERABLES Cristy l Result [facility] CLIA # [id number] [address] [place] [address] [place] [address] * (ABNORMAL) PTH INTACT (04/21/2025 4:39 AM BANANA EXPERT) Pathologist [facility] PTH INTACT 151.4(H) 17.9 - 58.6 pg/mL 04/21/2025 5:30 AM BANANA EXPERT [facility] Blood Venipuncture / Unknown 04/21/2025 4:39 AM BANANA EXPERT 04/21/2025 4:56 AM BANANA EXPERT us Maricruz Galvan MD CHEMISTRY ORDERABLES Final R esult Performing Organization Address [facility] Co de Phone Number [facility] CLIA # [id number] [address] [address] [place] [address] * (ABNORMAL) HEMOGLOBIN AND HEMATOCRIT (04/20/2025 11:21 PM BANANA EXPERT) HEMOGLOBIN 9.0(L) 14.0 - 18.0 g/dL 04/20/2025 11:32 PM BANANA EXPERT [facility] HEMATOCRIT 29.2(L) 41.0 - 53.0 % 04/20/2025 11:32 PM BANANA EXPERT [facility] Blood Venipuncture / Unknown 04/20/2025 11:21 PM BANANA EXPERT 04/20/2025 11:27 PM BANANA EXPERT us Gregorio Rogers MD HEMATOLOGY ORDERABLE S Final Result Performing Organization Address [facility] Co de Phone Number [facility] CLIA # [id number] [address] [address] [place] [address] * (ABNORMAL) HEMOGLOBIN AND HEMATOCRIT (04/20/2025 6:29 PM BANANA EXPERT) HEMOGLOBIN 9.3(L) 14.0 - 18.0 g/dL 04/20/2025 6:50 PM BANANA EXPERT [facility] HEMATOCRIT 29.9(L) 41.0 - 53.0 % 04/20/2025 6:50 PM BANANA EXPERT [facility] Blood Venipuncture / Unknown 04/20/2025 6:29 PM BANANA EXPERT 04/20/2025 6:47 PM BANANA EXPERT Gregorio Rogers MD HEMATOLOGY ORDERABLE S Final Result Performing Organization Address City/[facility]/ZIP Co de Phone Number [facility] CLIA # [id number] [address] [place] [address] * (ABNORMAL) TROPONIN (04/20/2025 1:58 PM BANANA EXPERT) TROPONIN T, 5TH GEN 152(HH) <=15 ng/L 04/20/2025 5:37 PM BANANA EXPERT [facility] Blood Venipuncture / Unknown 04/20/2025 1:58 PM BANANA EXPERT 04/20/2025 2:27 PM BANANA EXPERT Narrative [facility] - 04/20/2025 5:37 PM BANANA EXPERT Troponin elevated. Maricruz Galvan MD CHEMISTRY ORDERABLES Final R esult Performing Organization Address [facility] Co de Phone Number [facility] CLIA # [id number] [address] [place] [address] * (ABNORMAL) FERRITIN (04/20/2025 1:58 PM BANANA EXPERT) [facility] FERRITIN 570.3(H) 30.0 - 400.0 ng/mL 04/20/2025 3:55 PM BANANA EXPERT [facility] Blood Venipuncture / Unknown 04/20/2025 1:58 PM BANANA EXPERT 04/20/2025 2:27 PM BANANA EXPERT Maricruz Galvan MD CHEMISTRY ORDERABLES Final R esult Performing Organization Address [facility]/ZIP Co de Phone Number [facility] CLIA # [id number] [address] [place] [address] * (ABNORMAL) IRON, TIBC, AND PERCENT SATURATION (04/20/2025 1:58 PM BANANA EXPERT) IRON 28(L) 59 - 158 ug/dL 04/20/2025 3:55 PM BANANA EXPERT [facility] TIBC 197(L) 250 - 450 ug/dL 04/20/2025 3:55 PM BANANA EXPERT [facility] IRON % SATURATION 14(L) 15 - 60 % 04/20/2025 3:55 PM BANANA EXPERT [facility] Blood Venipuncture / Unknown 04/20/2025 1:58 PM BANANA EXPERT 04/20/2025 2:27 PM BANANA EXPERT Maricruz Galvan MD CHEMISTRY ORDERABLES Final R esult Performing Organization Address [facility] de Phone Number [facility] CLIA # [id number] [address] [address] [place] [address] * (ABNORMAL) PTT (04/20/2025 1:58 PM BANANA EXPERT) PTT 48.9(H) 24.8 - 37.2 seconds 04/20/2025 2:41 PM BANANA EXPERT [facility] Blood Venipuncture / Unknown 04/20/2025 1:58 PM BANANA EXPERT 04/20/2025 2:27 PM BANANA EXPERT Narrative [facility] - 04/20/2025 2:41 PM BANANA EXPERT Therapeutic Range: Hi-level PE/DVT heparin protocol 80.1 - 95.0 sec Lo-level PE/DVT heparin protocol 70.1 - 85.0 sec Cardiac Heparin Protocol 70.1 - 100.0 sec Maricruz Galvan MD HEMATOLOGY ORDERABLES Final Result Performing Organization Address [facility] Co de Phone Number [facility] CLIA # [id number] [address] [facility] [place] [address] * UNFRACTIONATED HEPARIN MONITORING (04/20/2025 1:58 PM BANANA EXPERT) [facility] ANTI-XA UNFRAC HEP <0.10 See Interpretation IU/mL 04/20/2025 2:51 PM [facility] Blood Venipuncture / Unknown 04/20/2025 1:58 PM BANANA EXPERT 04/20/2025 2:27 PM BANANA EXPERT [facility] - 04/20/2025 2:51 PM BANANA EXPERT Therapeutic Range: PT/DVT Heparin Protocol 0.3 - 0.7 IU/ml Cardiac Heparin Protocol 0.3 - 0.6 IU/ml The reference range for this test is specific to the anticoagulant and is not appropriate for monitoring patients on a DOAC protocol. Maricruz Galvan MD HEMATOLOGY ORDERABLES Final Result [facility] # [id number] [address] [place] [address] * (ABNORMAL) BASIC METABOLIC PANEL (04/20/2025 1:58 PM BANANA EXPERT) [facility] SODIUM 134(L) 136 - 145 mmol/L 04/20/2025 3:55 PM [facility] POTASSIUM 3.6 3.5 - 5.1 mmol/L 04/20/2025 3:55 PM [facility] CHLORIDE 95(L) 98 - 107 mmol/L 04/20/2025 3:55 PM [facility] CO2 21(L) 22 - 29 mmol/L 04/20/2025 3:55 PM [facility] CALCIUM 10.2 8.8 - 10.2 mg/dL 04/20/2025 3:55 PM [facility] BUN 97(H) 8 - 23 mg/dL 04/20/2025 3:55 PM [facility] CREATININE 2.89(H) 0.67 - 1.17 mg/dL 04/20/2025 3:55 PM [facility] GLUCOSE 108(H) 74 - 99 mg/dL 04/20/2025 3:55 PM BANANA EXPERT [facility] GFR 23(L) >=60 mL/min/1. 73 sq meter 04/20/2025 3:55 PM [facility] Comment:eGFR calculated with 2020 CKD-EPI equation. Vegetarian diet, extremely high or low muscle mass, and may affect results. Cystatin C with Glomerular Filtration Rate is a suitable alternative for these patients. ANION GAP 18 9 - 20 mmol/L 04/20/2025 3:55 PM BANANA EXPERT [facility] Blood Venipuncture / Unknown 04/20/2025 1:58 PM BANANA EXPERT 04/20/2025 2:27 PM BANANA EXPERT Maricruz Galvan MD CHEMISTRY ORDERABLES Final R esult Performing Organization Address City/[facility] Co de Phone Number [facility] CLIA # [id number] [address] [address] * BLOOD CULTURE (04/20/2025 10:53 AM BANANA EXPERT) Pathologist [facility] BLOOD CULTURE No growth 04/25/2025 11:41 AM [facility] Blood (Peripheral) Venipuncture / Unknown 04/20/2025 10:53 AM BANANA EXPERT 04/20/2025 10:58 AM BANANA EXPERT Narrative [facility] - 04/25/2025 11:41 AM BANANA EXPERT Specimen processed with suboptimal blood volume collected. Maricruz Galvan MD MICROBIOLOGY - GENERAL ORDER SABAS Final Result Performing Organization Address [facility] Co de Phone Number [facility] CLIA # [id number] [address] [place] [address] * (ABNORMAL) HEMOGLOBIN AND HEMATOCRIT (04/20/2025 10:52 AM BANANA EXPERT) HEMOGLOBIN 8.9(L) 14.0 - 18.0 g/dL 04/20/2025 11:02 AM [facility] HEMATOCRIT 29.7(L) 41.0 - 53.0 % 04/20/2025 11:02 AM [facility] Blood Venipuncture / Unknown 04/20/2025 10:52 AM BANANA EXPERT 04/20/2025 10:59 AM BANANA EXPERT us Gregorio Rogers MD HEMATOLOGY ORDERABLE S Final Result [facility] CLIA # [id number] [address] [place] [address] * BLOOD CULTURE (04/20/2025 10:33 AM BANANA EXPERT) BLOOD CULTURE No growth 04/25/2025 11:41 AM [facility] Blood (Peripheral) Venipuncture / Unknown 04/20/2025 10:33 AM BANANA EXPERT 04/20/2025 10:59 AM BANANA EXPERT Pedro [facility] - 04/25/2025 11:41 AM BANANA EXPERT Specimen processed with suboptimal blood volume collected. us Maricruz Galvan MD MICROBIOLOGY - GENERAL ORDER SABAS Final Result Performing Organization Address City/[facility]/ZIP Co de Phone Number [facility] CLIA # [id number] [address] [place] [address] * VITAMIN D 25 HYDROXY (04/20/2025 7:09 AM BANANA EXPERT) VITAMIN D TOTAL (25OH) 36 30 - 100 ng/mL 04/20/2025 6:00 PM [facility] Blood Venipuncture / Unknown 04/20/2025 7:09 AM BANANA EXPERT 04/20/2025 7:24 AM BANANA EXPERT Pedro [facility] - 04/20/2025 6:00 PM BANANA EXPERT Interpretive Data Chart: Deficient: 0 - 20 ng/mL Insufficient: 21 - 29 ng/mL Sufficient: 30 - 100 ng/mL Increased Risk of Hypercalciuria: >100 ng/ml Toxic: >150 ng/ml us Maricruz Galvan MD CHEMISTRY ORDERABLES Final R esult Performing Organization Address [facility] Co de Phone Number [facility] [id number] [address] [address] [place] [address] * (ABNORMAL) TROPONIN 6 HR, 5TH GEN (04/20/2025 7:09 AM BANANA EXPERT) TROPONIN T, 6 HR 5TH GEN 147(HH) <=15 ng/L 04/20/2025 8:07 AM BANANA EXPERT [facility] DELTA 6HR TROPONIN T % 6 See Interp. % 04/20/2025 8:07 AM BANANA EXPERT [facility] Blood Venipuncture / Unknown 04/20/2025 7:09 AM BANANA EXPERT 04/20/2025 7:24 AM BANANA EXPERT Narrative [facility] - 04/20/2025 8:07 AM BANANA EXPERT Troponin elevated. Delta not changing. us Gregorio Rogers MD CHEMISTRY ORDERABLES Final Result Performing Organization Address [facility] Co de Phone Number [facility] # [id number] [address] [address] * LACTIC ACID (04/20/2025 2:39 AM BANANA EXPERT) LACTIC ACID 0.9 <=2.0 mmol/L 04/20/2025 3:07 AM BANANA EXPERT [facility] Blood Venipuncture / Unknown 04/20/2025 2:39 AM BANANA EXPERT 04/20/2025 2:43 AM BANANA EXPERT us Gregorio Rogers MD CHEMISTRY ORDERABLES Final Result [facility] # [id number] [address] [facility] [place] [address] * EKG 12-LEAD (04/20/2025 2:30 AM BANANA EXPERT) 04/20/2025 2:30 AM BANANA EXPERT Narrative INTERFACE SYSTEM - 04/20/2025 11:29 AM BANANA EXPERT [address] [place] [address] Test Date: 2025-04-20 Pat Name: KRISTOPHER DEANA Department: 12 Room: [address] [place] [address] Gender: 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: [id number] : 1958-02-28 Requested By: Order Number: [id number] Reading MD: Tara Jiang Measurements Intervals [place] Rate: 109 P: 0 RI: 0 QRS: 55 QRSD: 184 T: 226 QT: 350 QTc: 471 Interpretive Statements Atrial fibrillation with rapid ventricular response Left bundle branch block Abnormal ECG Electronically Signed On 04-20-2025 11:29:16 BANANA EXPERT by Tara Jiang Procedure Note Provider, Historical - 04/20/2025 [facility] [address] [place] [address] Test Date: 2025-04-20 Pat Name: KRISTOPHER LEBLANC Department: 12 Room: [address] [place] [address] Gender: 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: [id number] : 1958-02-28 Requested By: Order Number: [id number] Reading : Tara Jiang Measurements Intervals [place] Rate: 109 P: 0 RI: 0 QRS: 55 QRSD: 184 T: 226 QT: 350 QTc: 471 Interpretive Statements Atrial fibrillation with rapid ventricular response Left bundle branch block Abnormal ECG Electronically Signed On 04-20-2025 11:29:16 BANANA EXPERT by Tara Jiang us Gregorio Rogers MD ECG ORDERABLES Cristy l Result INTERFACE SYSTEM Refer to clinic/hospital department * (ABNORMAL) COMPREHENSIVE METABOLIC PANEL (04/20/2025 2:29 AM BANANA EXPERT) SODIUM 133(L) 136 - 145 mmol/L 04/20/2025 3:39 AM [facility] POTASSIUM 3.2(L) 3.5 - 5.1 mmol/L 04/20/2025 3:39 AM [facility] CHLORIDE 95(L) 98 - 107 mmol/L 04/20/2025 3:39 AM [facility] CO2 22 22 - 29 mmol/L 04/20/2025 3:39 AM [facility] CALCIUM 10.5(H) 8.8 - 10.2 mg/dL 04/20/2025 3:39 AM [facility] BUN 97(H) 8 - 23 mg/dL 04/20/2025 3:39 AM [facility] CREATININE 2.66(H) 0.67 - 1.17 mg/dL 04/20/2025 3:39 AM [facility] GLUCOSE 103(H) 74 - 99 mg/dL 04/20/2025 3:39 AM [facility] TOTAL PROTEIN 7.0 6.4 - 8.3 g/dL 04/20/2025 3:39 AM [facility] ALBUMIN 3.6 3.5 - 5.2 g/dL 04/20/2025 3:39 AM [facility] BILIRUBIN TOTAL 0.5 0.0 - 1.0 mg/dL 04/20/2025 3:39 AM [facility] ALKALINE PHOSPHATASE 51 40 - 129 U/L 04/20/2025 3:39 AM [facility] AST 10 10 - 50 U/L 04/20/2025 3:39 AM [facility] ALT <5 <=50 U/L 04/20/2025 3:39 AM [facility] GFR 25(L) >=60 mL/min/1. 73 sq meter 04/20/2025 3:39 AM [facility] Comment:eGFR calculated with 2020 CKD-EPI equation. Vegetarian diet, extremely high or low muscle mass, and may affect results. Cystatin C with Glomerular Filtration Rate is a suitable alternative for these patients. ANION GAP 16 9 - 20 mmol/L 04/20/2025 3:39 AM [facility] Blood Venipuncture / Unknown 04/20/2025 2:29 AM [facility] 04/20/2025 2:36 AM [facility] us Gregorio Rogers MD CHEMISTRY ORDERABLES Final Result [facility] CLIA # [id number] [address] [place] [id number] * (ABNORMAL) CBC WITH DIFFERENTIAL (04/20/2025 2:29 AM [facility]) Pathologist [facility] WBC 9.1 4.8 - 10.8 K/uL 04/20/2025 2:42 AM [facility] RBC 3.42(L) 4.60 - 6.20 M/uL 04/20/2025 2:42 AM [facility] HEMOGLOBIN 8.9(L) 14.0 - 18.0 g/dL 04/20/2025 2:42 AM [facility] HEMATOCRIT 29.0(L) 41.0 - 53.0 % 04/20/2025 2:42 AM [facility] MCV 84.8 84.0 - 103.0 fL 04/20/2025 2:42 AM [facility] MCH 26.0(L) 27.0 - 34.0 pg 04/20/2025 2:42 AM [facility] MCHC 30.7 30.0 - 35.0 g/dL 04/20/2025 2:42 AM [facility] PLATELETS 214 140 - 440 K/uL 04/20/2025 2:42 AM [facility] MPV 10.0 8.9 - 12.8 fL 04/20/2025 2:42 AM [facility] RDW 19.6(H) 11.0 - 14.5 % 04/20/2025 2:42 AM [facility] RDW-STDEV 60.7(H) 37.0 - 54.0 fL 04/20/2025 2:42 AM [facility] NEUTROPHILS 84(H) 42 - 75 % 04/20/2025 2:42 AM [facility] LYMPHOCYTES 7(L) 24 - 44 % 04/20/2025 2:42 AM [facility] MONOCYTES 7 2 - 10 % 04/20/2025 2:42 AM [facility] EOSINOPHILS 2 0 - 7 % 04/20/2025 2:42 AM [facility] BASOPHILS 0 0 - 1 % 04/20/2025 2:42 AM [facility] IMMATURE GRANULOCYTES 1 0 - 2 % 04/20/2025 2:42 AM [facility] NEUTROPHIL ABSOLUTE 7.64 2.00 - 8.00 K/uL 04/20/2025 2:42 AM [facility] LYMPHOCYTE ABSOLUTE 0.59(L) 1.20 - 4.00 K/uL 04/20/2025 2:42 AM [facility] MONOCYTE ABSOLUTE 0.59 0.10 - 0.60 K/uL 04/20/2025 2:42 AM [facility] EOSINOPHIL ABSOLUTE 0.16 0.00 - 0.70 K/uL 04/20/2025 2:42 AM [facility] BASOPHILS ABSOLUTE 0.03 0.00 - 0.20 K/uL 04/20/2025 2:42 AM [facility] IMMATURE GRANULOCYTES ABSOLUTE 0.07 0.00 - 0.10 K/uL 04/20/2025 2:42 AM [facility] SMEAR REVIEWED: NA - Not Applicable 04/20/2025 2:42 AM [facility] Blood Venipuncture / Unknown 04/20/2025 2:29 AM BANANA EXPERT 04/20/2025 2:35 AM BANANA EXPERT Gregorio Rogers MD HEMATOLOGY ORDERABLE S Final Result [facility] [employer] [facility] CLIA # [id number] [address] [place] [address] * (ABNORMAL) TROPONIN BASELINE, 5TH GEN (04/20/2025 2:29 AM BANANA EXPERT) TROPONIN T, BASELINE 5TH GEN 139(HH) <=15 ng/L 04/20/2025 3:18 AM BANANA EXPERT [facility] Blood Venipuncture / Unknown 04/20/2025 2:29 AM BANANA EXPERT 04/20/2025 2:36 AM BANANA EXPERT Narrative [facility] [employer] [facility] - 04/20/2025 3:18 AM BANANA EXPERT Troponin elevated. us Gregorio Rogers MD CHEMISTRY ORDERABLES Final Result Performing Organization Address [facility]/ZIP Co de Phone Number [facility] CLIA # [id number] [address] [place] [address] * MAGNESIUM LEVEL (04/20/2025 2:29 AM BANANA EXPERT) MAGNESIUM 1.9 1.6 - 2.4 mg/dL 04/20/2025 3:39 AM BANANA EXPERT [facility] Blood Venipuncture / Unknown 04/20/2025 2:29 AM BANANA EXPERT 04/20/2025 2:36 AM BANANA EXPERT us Gregorio Rogers MD CHEMISTRY ORDERABLES Final Result Performing Organization Address City/[facility]/ZIP Co de Phone Number [facility] [employer] [facility] CLIA # [id number] [address] [place] [address] * T4 FREE (04/20/2025 2:29 AM BANANA EXPERT) T4 FREE 1.24 0.81 - 1.70 ng/dL 04/20/2025 3:18 AM BANANA EXPERT [facility] Blood Venipuncture / Unknown 04/20/2025 2:29 AM BANANA EXPERT 04/20/2025 2:36 AM BANANA EXPERT Gregorio Rogers MD CHEMISTRY ORDERABLES Final Result [facility] CLIA # [id number] [address] [address] * TSH (04/20/2025 2:29 AM BANANA EXPERT) TSH 2.92 0.27 - 4.20 uIU/mL 04/20/2025 3:17 AM BANANA EXPERT [facility] Blood Venipuncture / Unknown 04/20/2025 2:29 AM BANANA EXPERT 04/20/2025 2:36 AM BANANA EXPERT us Gregorio Rogers MD CHEMISTRY ORDERABLES Final Result [facility] CLIA # [id number] [id number] [place] [address] documented in this encounter Visit Diagnoses Diagnosis Atrial fibrillation with rapid ventricular response (CMS/HCC)- Primary Atrial fibrillation Atrial fibrillation with rapid ventricular response (CMS/HCC) Atrial fibrillation CHRIS (acute kidney injury) Acute kidney failure, unspecified Hematuria Hematuria, unspecified HFrEF (heart failure with reduced ejection fraction) (CMS/HCC) Hyperparathyroidism Hyperparathyroidism, unspecified Bilateral lower extremity edema Edema Elevated troponin Other abnormal blood chemistry documented in this encounter Administered Medications Inactive Administered Medications - up to 3 most recent administrations Medication Order MAR Action Action Date Dose Rate Site acetaminophen (TYLENOL) tablet 650 mg 650 mg, Oral, EVERY 6 HOURS PRN, Starting on Tue04/20/25 at 0115, Until Tue04/29/25 at 1857, Other (See Comment), See admin instructions, Routine Given 04/28/2025 9:25 PM BANANA EXPERT 650 mg Given 04/27/2025 3:13 AM BANANA EXPERT 650 mg Given 04/25/2025 4:26 PM BANANA EXPERT 650 mg amiodarone (CORDARONE) tablet 400 mg 400 mg, Oral, TWO TIMES DAILY, First dose on Tue04/23/25 at 1230, Until Discontinued, Routine Given 04/29/2025 8:41 AM BANANA EXPERT 400 mg Given 04/28/2025 9:18 PM BANANA EXPERT 400 mg Given 04/28/2025 8:29 AM BANANA EXPERT 400 mg amiodarone in dextrose (ISO-OSM) (NEXTERONE) 360 mg/200 mL (1.8 mg/mL) IV infusion 0.5 mg/min (16.6667 mL/hr, rounded to 16.67 mL/hr), IV, CONTINUOUS, Starting on Tue04/20/25 at 0300, Until Tue04/23/25 at 1216 Bag Switched 04/23/2025 1:59 AM BANANA EXPERT 0.5 mg/min 16.67 mL/hr Rate Verify 04/22/2025 11:35 PM BANANA EXPERT 0.5 mg/min 16.67 mL/hr New Bag 04/22/2025 3:20 PM BANANA EXPERT 0.5 mg/min 16.67 mL/hr ammonium lactate (LAC-HYDRIN) 12 % lotion Topical, TWO TIMES DAILY, First dose on Tue04/25/25 at 1315, Until Discontinued, Routine Given 04/29/2025 9:00 AM BANANA EXPERT Other (Comment) Given 04/28/2025 9:19 PM BANANA EXPERT Le g, Right Given 04/28/2025 8:33 AM BANANA EXPERT Ot her (Comment) apixaban (ELIQUIS) tablet 2.5 mg 2.5 mg, Oral, TWO TIMES DAILY, First dose on Tue04/28/25 at 1100, Until Discontinued, Routine, Indication: Non-valvular A Fib Given 04/29/2025 8:41 AM BANANA EXPERT 2.5 mg Given 04/28/2025 9:18 PM BANANA EXPERT 2.5 mg Given 04/28/2025 10:47 AM BANANA EXPERT 2.5 mg benzocaine (HURRICAINE) 20 % spray Mouth/Throat, INTRA-PROCEDURE ONCE, 1 dose, Starting on Tue04/23/25 at 0811, Until Tue04/23/25 at 0844, Routine Given 04/23/2025 8:44 AM BANANA EXPERT 0.5 Sprays cefTRIAXone (ROCEPHIN) 2,000 mg in sodium chloride 0.9% 50 mL IVPB (MBP) 2,000 mg, IV, DAILY, First dose on 04/21/25 at 0900, Until Discontinued, Routine, Antibiotic Indication: Urinary Tract Infection(UTI) / Infection New Bag 04/28/2025 8:29 AM BANANA EXPERT 2,000 mg 118 mL/hr New Bag 04/27/2025 12:53 PM BANANA EXPERT 2,000 mg 118 mL/hr Bolus 04/27/2025 9:09 AM BANANA EXPERT 2,000 mg cefTRIAXone (ROCEPHIN) 2,000 mg in sodium chloride 0.9% 50 mL IVPB (MBP) 2,000 mg, IV, ONE TIME ONLY, 1 dose, On 04/20/25 at 0215, Routine, Antibiotic Indication: Urinary Tract Infection(UTI) / Infection New Bag 04/20/2025 12:07 PM BANANA EXPERT 2,000 mg 118 mL/hr fentaNYL (PF) (SUBLIMAZE) 50 mcg/mL injection 200 mcg 200 mcg, IV, INTRA-PROCEDURE PRN, Starting on Tue04/23/25 at 0811, Until 04/27/25 at 1230, Pain (See admin instructions), Routine Given 04/23/2025 9:20 AM BANANA EXPERT 25 mcg Given 04/23/2025 8:57 AM BANANA EXPERT 25 mcg Given 04/23/2025 8:54 AM BANANA EXPERT 25 mcg fentaNYL (PF) (SUBLIMAZE) 50 mcg/mL injection 50 mcg 50 mcg, IV, POST-PROCEDURE Q 3 MINUTES PRN, 4 doses, Starting on 04/27/25 at 0824, Until 04/27/25 at 1230, Pain, Pain Seveity -09/20, Routine, PACU Given 04/27/2025 10:49 AM BANANA EXPERT 50 mcg Given 04/27/2025 9:49 AM BANANA EXPERT 50 mcg heparin in 0.45% NaCl 25,000 unit/250 mL infusion 25 Units/kg/hr 102 kg Adjusted weight (25.5 mL/hr), IV, TITRATE, Starting on 04/20/25 at 1430, Until 04/28/25 at 1000, Indication: A Fib, Dosing by: PER PROTOCOL: Delegate to facility protocol per indication, Re-bolus within Protocol? Yes, allow re-bolus New Bag 04/28/2025 8:26 AM BANANA EXPERT 25 Units/kg/hr 25.5 mL/h r New Bag 04/27/2025 9:28 PM BANANA EXPERT 25 Units/kg/hr 25.5 mL/h r Rate Verify 04/27/2025 9:45 AM BANANA EXPERT 25 Units/kg/hr 25.5 mL/ hr heparin injection 1,500 Units 1,500 Units (rounded from 1,530 Units = 15 Units/kg 102 kg Adjusted weight), IV, ONE TIME ONLY, 1 dose, On Tue04/23/25 at 0700, Routine Given 04/23/2025 6:52 AM BANANA EXPERT 1,500 Units heparin injection 1,500 Units 1,500 Units (rounded from 1,530 Units = 15 Units/kg 102 kg Adjusted weight), IV, ONE TIME ONLY, 1 dose, On Tue04/23/25 at 2030, Routine Given 04/23/2025 8:39 PM BANANA EXPERT 1,500 Units heparin injection 1,500 Units 1,500 Units (rounded from 1,530 Units = 15 Units/kg 102 kg Adjusted weight), IV, ONE TIME ONLY, 1 dose, On Sil 04/25/25 at 0530, Routine Given 04/25/2025 5:22 AM BANANA EXPERT 1,500 Units heparin injection 1,500 Units 1,500 Units (rounded from 1,536 Units = 15 Units/kg 102.4 kg Adjusted weight), IV, ONE TIME ONLY, 1 dose, On Tue04/26/25 at 0530, Routine Given 04/26/2025 5:28 AM BANANA EXPERT 1,500 Units heparin injection 3,100 Units 3,100 Units (rounded from 3,060 Units = 30 Units/kg 102 kg Adjusted weight), IV, ONE TIME ONLY, 1 dose, On Tue04/22/25 at 1600, Routine Given 04/22/2025 4:08 PM BANANA EXPERT 3,100 Units heparin injection 3,100 Units 3,100 Units (rounded from 3,060 Units = 30 Units/kg 102 kg Adjusted weight), IV, ONE TIME ONLY, 1 dose, On Tue04/23/25 at 0030, Routine Given 04/23/2025 12:36 AM BANANA EXPERT 3,100 Units heparin injection 3,100 Units 3,100 Units (rounded from 3,072 Units = 30 Units/kg 102.4 kg Adjusted weight), IV, ONE TIME ONLY, 1 dose, On Tue04/26/25 at 1915, Routine Given 04/26/2025 7:13 PM BANANA EXPERT 3,100 Units ipratropium-albuteroL (DUONEB) 0.5 mg-3 mg(2.5 mg base)/3 mL inhalation solution 3 mL 3 mL, Inhalation, EVERY 4 HOURS PRN RESPIRATORY, Starting on Tue04/23/25 at 1146, Until Tue04/29/25 at 1857, Shortness of Breath, Routine lactated ringers infusion IV, at 75 mL/hr, CONTINUOUS, Starting on Tue04/22/25 at 1215, Until Tue04/23/25 at 1214, Routine Bag Switched 04/23/2025 4:18 AM BANANA EXPERT 75 mL/hr Rate Verify 04/22/2025 11:35 PM BANANA EXPERT 75 mL/hr New Bag 04/22/2025 1:51 PM BANANA EXPERT 75 mL/hr lactated ringers infusion IV, at 75 mL/hr, CONTINUOUS, Starting on Tue04/23/25 at 1300, Until Tue04/24/25 at 1259, Routine New Bag 04/24/2025 4:01 AM BANANA EXPERT 75 mL/hr New Bag 04/23/2025 2:25 PM BANANA EXPERT 75 mL/hr lactated ringers infusion IV, at 75 mL/hr, CONTINUOUS, Starting on Tue04/24/25 at 1230, Until Sil 04/25/25 at 1102, Routine Bag Switched 04/25/2025 8:52 AM BANANA EXPERT 75 mL/hr Bag Switched 04/24/2025 6:08 PM BANANA EXPERT 75 mL/hr New Bag 04/24/2025 1:16 PM BANANA EXPERT 75 mL/hr lidocaine 2% jelly 10 mL 10 mL, See Admin Instructions, INTRA-PROCEDURE ONCE, 1 dose, Starting on Tue04/23/25 at 0811, Until Tue04/23/25 at 0844, Routine Given 04/23/2025 8:44 AM BANANA EXPERT 6 mL Other (Comment) magnesium SULFATE in water 2 gram/50 mL (4 %) IVPB 2 Gram 2 Gram, IV, ONE TIME ONLY, 1 dose, On 04/28/25 at 1015, Routine New Bag 04/28/2025 10:48 AM BANANA EXPERT 2 Grams 25 mL/hr metoprolol succinate (TOPROL XL) SR 24 hour tablet 25 mg 25 mg, Oral, DAILY, First dose on Tue04/24/25 at 0900, Until Discontinued, Routine Given 04/29/2025 8:41 AM BANANA EXPERT 25 mg Given 04/28/2025 8:30 AM BANANA EXPERT 25 mg Given 04/27/2025 12:49 PM BANANA EXPERT 25 mg midazolam (VERSED) injection 10 mg 10 mg, IV, INTRA-PROCEDURE PRN, Starting on Tue04/23/25 at 0811, Until 04/27/25 at 1230, Other (See Comment), sedation, Routine Given 04/23/2025 9:23 AM BANANA EXPERT 1 mg Given 04/23/2025 9:04 AM BANANA EXPERT 1 mg Given 04/23/2025 8:57 AM BANANA EXPERT 1 mg oxyCODONE (ROXICODONE) tablet 5 mg 5 mg, Oral, EVERY 8 HOURS PRN, 6 doses, Starting on 04/27/25 at 1545, Until Tue04/29/25 at 1857, Pain (See admin instructions), Routine Given 04/27/2025 3:51 PM BANANA EXPERT 5 mg perflutren lipid microspheres (DEFINITY) 1.3 mL in sodium chloride 0.9% 10 mL injection 0-10 mL, IV, INTRA-PROCEDURE ONCE, 1 dose, Starting on Tue04/22/25 at 1025, Until Tue04/22/25 at 1015, Routine Contrast Given 04/22/2025 10:15 AM BANANA EXPERT 3 mL polyethylene glycol (MIRALAX) packet 17 Gram 17 Gram, Oral, DAILY, First dose on 04/20/25 at 1415, Until Discontinued, Routine Given 04/23/2025 10:41 AM BANANA EXPERT 17 Grams Given 04/22/2025 9:06 AM BANANA EXPERT 17 Grams Given 04/20/2025 4:48 PM BANANA EXPERT 17 Grams potassium CHLORIDE (KLOR-CON) SR tablet 40 mEq 40 mEq, Oral, EVERY 4 HOURS, 2 doses, First dose on Tue04/20/25 at 0800, Last dose on Tue04/20/25 at 1200, Routine Given 04/20/2025 12:57 PM BANANA EXPERT 40 mEq Given 04/20/2025 8:55 AM BANANA EXPERT 40 mEq potassium CHLORIDE (KLOR-CON) SR tablet 40 mEq 40 mEq, Oral, ONE TIME ONLY, 1 dose, On Tue04/22/25 at 0845, Routine Given 04/22/2025 9:17 AM BANANA EXPERT 40 mEq potassium CHLORIDE (KLOR-CON) SR tablet 40 mEq 40 mEq, Oral, ONE TIME ONLY, 1 dose, On Sil 04/25/25 at 1530, Routine Given 04/25/2025 4:20 PM BANANA EXPERT 40 mEq potassium CHLORIDE 20 mEq/100 mL IVPB 20 mEq 20 mEq, IV, ONE TIME ONLY, 1 dose, On Tue04/22/25 at 1215, Routine New Bag 04/22/2025 12:40 PM BANANA EXPERT 20 mEq 50 mL/hr potassium CHLORIDE 20 mEq/100 mL IVPB 20 mEq 20 mEq, IV, ONE TIME ONLY, 1 dose, On Tue04/23/25 at 1300, Routine New Bag 04/23/2025 2:27 PM BANANA EXPERT 20 mEq 50 mL/hr potassium CHLORIDE 40 mEq in sodium chloride 0.9 % 250 mL IVPB 40 mEq, IV, ONE TIME ONLY, 1 dose, On Tue04/24/25 at 0730, Routine New Bag 04/24/2025 8:28 AM BANANA EXPERT 40 mEq 76.25 mL/hr sennosides (SENOKOT) tablet 8.6 mg 8.6 mg, Oral, DAILY, First dose on Tue04/20/25 at 1415, Until Discontinued, Routine Given 04/27/2025 12:49 PM BANANA EXPERT 8.6 mg Given 04/23/2025 10:40 AM BANANA EXPERT 8.6 mg Given 04/22/2025 9:03 AM BANANA EXPERT 8.6 mg sodium chloride 0.9 % infusion IV, at 40 mL/hr, CONTINUOUS, Starting on Tue04/23/25 at 0815, Until Tue04/24/25 at 0814, Routine New Bag 04/23/2025 8:53 AM BANANA EXPERT 40 mL/hr sodium chloride flush injection 10 mL 10 mL, IV, INTRA-PROCEDURE PRN, Starting on Tue04/23/25 at 0811, Until 04/27/25 at 1230, Other (See Comment), FOR FLUSHING MEDS, Routine Given 04/23/2025 8:50 AM BANANA EXPERT 10 mL zinc OXIDE-cod liver oil (DESITIN) 40 % topical paste Topical, TWO TIMES DAILY, First dose on Tue04/25/25 at 1315, Until Discontinued, Routine Given 04/28/2025 9:27 PM BANANA EXPERT Buttock, Right Given 04/28/2025 8:34 AM BANANA EXPERT Ot her (Comment) Given 04/27/2025 9:27 PM BANANA EXPERT Bi lateral buttocks documented in this encounter Active and Recently Administered Medications Times are shown in BANANA EXPERT. Scheduled Medication Order 04/27/2025 04/28/2025 04/29/2025 amiodarone (CORDARONE) tablet 400 mg 400 mg, Oral, TWO TIMES DAILY, First dose on Tue04/23/25 at 1230, Until Discontinued, Routine 1249 (Given - Provider: Neha Cheek RN)2123 (Given - Provider: Vic Alexander RN) 08 (Given - Provider: Neha Cheek RN)2117 (Given - Provider: Yennifer White LPN) 0841 (Given - Provider: DAX Dickerson) ammonium lactate (LAC-HYDRIN) 12 % lotion Topical, TWO TIMES DAILY, First dose on Tue04/25/25 at 1315, Until Discontinued, Routine 0900 (Not Given - Provider: Neha Cheek RN - Reason: Patient off unit)2126 (Given - Provider: Vic Alexander RN) 08 (Given - Provider: Neha Cheek RN)2118 (Given - Provider: Yennifer White LPN) 0900 (Given - Provider: DAX Dickerson - Comment: left lower leg) apixaban (ELIQUIS) tablet 2.5 mg 2.5 mg, Oral, TWO TIMES DAILY, First dose on Tue04/28/25 at 1100, Until Discontinued, Routine, Indication: Non-valvular A Fib 1047 (Given - Provider: Neha Cheek RN)2117 (Given - Provider: Yennifer White LPN) 0841 (Given - Provider: DAX Dickerson) cefTRIAXone (ROCEPHIN) 2,000 mg in sodium chloride 0.9% 50 mL IVPB (MBP) (CANCELED) 2,000 mg, IV, DAILY, First dose on Tue04/21/25 at 0900, Until Discontinued, Routine, Antibiotic Indication: Urinary Tract Infection(UTI) / Infection 0909 (Bolus - Provider: Edi Morales CRNA)0939 (Stopped - Provider: Edi Morales CRNA)1253 (New Bag - Provider: Neha Cheek RN)1323 (Stopped - Provider: Nhea Cheek RN) 0829 (New Bag - Provider: Neha Cheek, RN)0859 (Stopped - Provider: Neha Cheek RN) magnesium SULFATE in water 2 gram/50 mL (4 %) IVPB 2 Gram (COMPLETED) 2 Gram, IV, ONE TIME ONLY, 1 dose, On 04/28/25 at 1015, Routine 1048 (New Bag - Provider: Neha Cheek RN)1248 (Stopped - Provider: Tonya Grayson RN) metoprolol succinate (TOPROL XL) SR 24 hour tablet 25 mg 25 mg, Oral, DAILY, First dose on Tue04/24/25 at 0900, Until Discontinued, Routine 1249 (Given - Provider: Neha Cheek RN) 0830 (Given - Provider: Neha Cheek RN) 0841 (Given - Provider: DAX Dickerson) morphine 4 mg/mL injection 4 mg 4 mg, IV, ONE TIME ONLY, 1 dose, On Tue04/26/25 at 0400, Routine naloxone (NARCAN) 0.4 mg/mL injection 0.1-0.4 mg 0.1-0.4 mg, IV, SEE ADMIN INSTRUCTIONS, Starting on 04/20/25 at 0115, Until Tue04/29/25 at 1857, Routine nitroglycerin (NITRO-BID) 2 % topical ointment 1 Inch 1 Inch, Topical, ONE TIME ONLY, 1 dose, On Tue04/26/25 at 0400, Stat, If the dose is 1 or 2 inches, the foil packet may be dispensed. If the dose is for 0.5 inch, 1.5 inch, etc., change the product to the 30 gram tube. polyethylene glycol (MIRALAX) packet 17 Gram 17 Gram, Oral, DAILY, First dose on 04/20/25 at 1415, Until Discontinued, Routine 0900 (Not Given - Provider: Neha Cheek RN - Reason: Patient condition) 09 (Refused - Provider: Neha Cheek RN) 09 (Refused - Provider: DAX Dickerson) sennosides (SENOKOT) tablet 8.6 mg 8.6 mg, Oral, DAILY, First dose on 04/20/25 at 1415, Until Discontinued, Routine 1249 (Given - Provider: Neha Cheek RN) 09 (Refused - Provider: Neha Cheek RN) 09 (Refused - Provider: DAX Dickerson) zinc OXIDE-cod liver oil (DESITIN) 40 % topical paste Topical, TWO TIMES DAILY, First dose on Sil 04/25/25 at 1315, Until Discontinued, Routine 0900 (Not Given - Provider: Neha Cheek RN - Reason: Patient off unit)2126 (Given - Provider: Vic Alexander RN) 08 (Given - Provider: Neha Cheek RN)2126 (Given - Provider: Yennifer White LPN) 09 (Refused - Provider: DAX Dickerson) Continuous Medication Order 04/27/2025 04/28/2025 04/29/2025 heparin in 0.45% NaCl 25,000 unit/250 mL infusion (CANCELED) 25 Units/kg/hr 102 kg Adjusted weight (25.5 mL/hr), IV, TITRATE, Starting on 04/20/25 at 1430, Until 04/28/25 at 1000, Indication: A Fib, Dosing by: PER PROTOCOL: Delegate to facility protocol per indication, Re-bolus within Protocol? Yes, allow re-bolus 0308 (New Bag - Provider: Vic Alexander RN)0842 (Continue from Pre-Op - Provider: Edi Morales CRNA)0945 (Rate Verify - Provider: Marlen Michael RN - Comment: Continued from OR)2127 (New Bag - Provider: Vic Alexander RN) 0826 (New Bag - Provider: Neha Cheek RN)1000 (Stopped - Provider: Neha Cheek RN - Comment: [Order ends at this time. Document the following action when infusion is complete: Stopped]) PRN Medication Order 04/27/2025 04/28/2025 04/29/2025 acetaminophen (TYLENOL) tablet 650 mg 650 mg, Oral, EVERY 6 HOURS PRN, Starting on 04/20/25 at 0115, Until 04/29/25 at 1857, Other (See Comment), See admin instructions, Routine 0313 (Given - Provider: Vic Alexander RN) 2125 (Given - Provider: Yennifer White LPN) fentaNYL (PF) (SUBLIMAZE) 50 mcg/mL injection 50 mcg (CANCELED) 50 mcg, IV, POST-PROCEDURE Q 3 MINUTES PRN, 4 doses, Starting on 04/27/25 at 0824, Until 04/27/25 at 1230, Pain, Pain Seveity 1-09/20, Routine, PACU 0949 (Given - Provider: Marlen Michael RN)1049 (Given - Provider: Marlen Michael RN) glycine urologic solution 1.5 % irrigation (CANCELED) INTRA-PROCEDURE PRN, Starting on 04/27/25 at 0920, Until 04/27/25 at 0936, Intra-op 0920 (Given - Provider: Rishabh Reed MD) ipratropium-albuteroL (DUONEB) 0.5 mg-3 mg(2.5 mg base)/3 mL inhalation solution 3 mL 3 mL, Inhalation, EVERY 4 HOURS PRN RESPIRATORY, Starting on 04/23/25 at 1146, Until 04/29/25 at 1857, Shortness of Breath, Routine lidocaine 2% jelly (CANCELED) INTRA-PROCEDURE PRN, Starting on 04/27/25 at 0921, Until 04/27/25 at 0936, Routine, Intra-op 0921 (Given - Provider: Rishabh Reed MD) oxyCODONE (ROXICODONE) tablet 5 mg 5 mg, Oral, EVERY 8 HOURS PRN, 6 doses, Starting on 04/27/25 at 1545, Until 04/29/25 at 1857, Pain (See admin instructions), Routine 1551 (Given - Provider: Neha Cheek RN) documented in this encounter
--- OUTSIDE RECORDS SUMMARY | 2025-04-27 08:16 | XMS_ITS | Encounter Summary ---
Author Organization [facility] Address [address] [place] [address] Care Team Providers Care Router Tender Name Role Phone Unavailable Primary Care Provider Unavailabl e Reason for Visit * Auth/Cert (Routine) Specialty Diagnoses / Procedures Referred By Adonay t Referred To Contact Cardiology Diagnoses hematuria, A-fib w Bijan Pfeiffer MD [address] [place] [address] Phone: tel: fax: [address] [facility] [address] [place] [phone] Phone: tel: fax: Referral ID Status Reason Start Date Expiration Date Visits Re quested Visits Authorized [id number] 1 1 Encounter Details Date Type Department Care Team (Latest Contact Info) Description 04/27/2025 8:16 AM DRESSMAKER GARMENT FITTER - 04/27/2025 9:[address] [facility] Surgery [facility] Operating Room [address] [place] [phone] Rishabh Reed MD [address] [facility] [address] [facility] [place] [address] CYSTOURETHROSCOPY BLADDER FULGURATION Social History Tobacco Use Types Packs/Day Years [...] worry about transportation for future doctor visits, pick and shovel man medication, etc.? No 2024 Housing Stability Answer [...] on file Legal Sex Male 10:33 AM DRESSMAKER GARMENT FITTER Gender Identity Not on file Sexual Orientation Not on file documented as of this encounter Last Filed Vital Signs Vital Sign Reading Time Taken Comments Blood Pressure 116/72 04/27/2025 7:15 AM DRESSMAKER GARMENT FITTER Pulse 214 04/27/2025 7:15 AM DRESSMAKER GARMENT FITTER Temperature 36 C (96.8 F) 04/27/2025 7:15 AM DRESSMAKER GARMENT FITTER Respiratory Rate 17 04/27/2025 7:15 AM DRESSMAKER GARMENT FITTER Oxygen Saturation 95% 04/27/2025 7:15 AM DRESSMAKER GARMENT FITTER Inhaled Oxygen Concentration - - Weight 143.1 kg (315 lb 7.7 oz) 04/26/2025 2:28 AM DRESSMAKER GARMENT FITTER Height 180.3 cm (5' 11 ) 04/20/2025 1:15 AM DRESSMAKER GARMENT FITTER Body Mass Index 46.5 04/20/2025 1:15 AM DRESSMAKER GARMENT FITTER documented in this encounter Discharge Summaries * Carlos Zendejas MD - 04/29/2025 2:35 PM CST [facility] Hospitalist- Discharge Summary Kristopher Vo y.o. male 02/28/1958 CSN: [id number] Date of Admission: 04/20/2025 Date of Discharge: 04/29/2025 LOS: 9 days Discharging Physician: Carlos Zendejas MD PCP: No primary care provider on file. Code Status at Discharge: Full Code Dispo: Penitentiary Labs and studies from this hospitalization needing [...] and recent hospitalizations who was transferred to [facility] after hospitalization for 2 days at OSH for A fib RVR who developed hematuria with anticoagulation. Upon arrival he was on amiodarone drip, montejo catheter with bloody output. Cardiology and urology were consulted. 04/20: getting BLOOD COLLECTOR med list; continue amio, heparin trial ok [...] No primary care provider on file. via [employer] communication MEDICATION CHANGES (significant): As below MEDICATION [...] care and follow up required >30 minutes. SMAKER GARMENT FITTER documented in this encounter Discharge Instructions * Discharge Instructions* Carlos Zendejas MD - 04/23/2025 12:48 PM DRESSMAKER GARMENT FITTER Please follow up with Dr. Jiang (EP) in 1 week to discuss pacemaker placement. [facility] Discharge Instructions Discharge & Transfer patient to: [...] make a follow up appointment, please call [phone]. Activity level: up as tolerated DIET: DIET GENERAL Effective Now Follow up in the Emergency Room For any recurrence or worsening of admission concerns, chest pain, palpitations, shortness of breath, coughing blood, nausea, vomiting, diarrhea, pain, fever, chills, bleeding, bloody or tarry stools, change to urine or bowel output, Contact hospitalist office [phone] for questions if patients are discharged by [facility]. Thank you for participating in your heart [...] forwardto hearing from you. Take care, Staff [phone] Heart Failure means that your heart does [...] up 2 pounds in one day or 3-nu-2-pound gradual weight gain over a week. You [...] chest pain that will not go away. SMAKER GARMENT FITTER SMAKER GARMENT FITTER SMAKER GARMENT FITTER * Attachments The following attachments cannot be sent through Care Everywhere. * Low Sodium: Reading a Food Label (Tajik) * Amiodarone (Tajik) * Apixaban (Tajik) * Metoprolol (Tajik) documented in this encounter Medications at Time [...] of this encounter Progress Notes * Whitney Butcher LCSW - 04/29/2025 3:11 PM CST Telegraphic Typewriter Operator Chief Discharge Planning: Pt is agreeable with discharge plan/arrangements. Pt is understanding that he is returning as a private pay patient; he has declined PT & OT; therapies have signed off. Per therapy note, pt is at baseline. Expected Discharge Date Apr 29, 2025 04/29/25 1502 Discharge Planning Transportation Provider [employer] [facility] Contact Name Carlie Transportation Provider Phone [phone] Final Discharge Arrangements Final Discharge Disposition [facility] Facility Name [facility] Facility Contact Name Admissions: [facility] Phone Number FAX DISCHARGE ORDERS 1ST: [phone]; REPORT; [facility] PLEASE ASK IF THERE IS A CUT OFF TIME FOR ACCEPTING Services Arranged For Discharge Transportation assistance Agency Name [employer] [facility] Agency Contact Name Carlie Agency Phone Number [phone] Date Of Pick-Up 04/29/25 Time Of Pick-Up 0300 Copy of this transfer form will be sent with patient along with: Pertinent Medical Records Discharge to long distance billing operator bed at [facility]. Plan Discharge To - Alternate: Medicaid certified nursing facility (04/28/25 1040) Referrals Status: Facility Referrals - Accepted Follow-up on Referrals Sent: No (04/28/25 1040) Preferred Pharmacy: [id number] [place] [id number] [address] [facility] Patient / Family Communications: Patient/Family Communications: Plan Discharge To Update (04/23/25 1210) Resources Provided Transportation Plan: [facility] dispatch Follow Up Appointments Scheduled Whitney Butcher LCSW SMAKER GARMENT FITTER * aMrtha Escobar GN - 04/29/2025 11:31 AM CST Patient will not let RN take a picture of his bottom, educated on importance and purpose of the picture. Patient still refused. SMAKER GARMENT FITTER * Carlton Perrin MD - 04/29/2025 9:06 AM CST [...] Problem: Atrial fibrillation with rapid ventricular response ([facility]) Active Problems: CHRIS (acute kidney injury) Hematuria HFrEF (heart failure with reduced ejection fraction) ([facility]) Hyperparathyroidism Bilateral lower extremity edema Elevated troponin Plan: No further intervention at this time Recall with any acute issues Patient voiding clear urine SMAKER GARMENT FITTER * Librado Ferrer, PHARMACIST - 04/28/2025 10:18 AM CST RX ANTICOAG MONITORING ORDERS Pharmacy to order, review, and report clinically significant changes in lab per [facility] Anticoagulation Protocol as follows: Orders for dosing changes and follow-up labs will be signed ???Per Protocol?? in Epic. The name ofthe provider signed on the follow-up orders for cosignature will be assigned as follows: Orders placed by members of the Director Of Quality or Hospitalist physician groups: If the original [...] order appropriate labs as indicated by the [facility] Anticoagulation Monitoring policy located on [facility] intranet, unless already ordered. The medications [...] This policy is in compliance with the JCAHO National Patient Safety Goal 3E and authorized by the [facility] Pharmacy and Therapeutics Committee. Cosigned by Yulissa Zendejas MD at 04/28/2025 6:56 PM DRESSMAKER GARMENT FITTER SMAKER GARMENT FITTER SMAKER GARMENT FITTER * Carlos Zendejas MD - 04/28/2025 9:54 AM CST Images from the original note were not included. Your life is our life's work [facility] Hospitalist/Hospital Medicine Progress Note LOS: 8 days Room/Bed: 4257/ Patient name: Kristopher Leblanc Date of : 02/28/1958 HOSPITAL COURSE SUMMARY: Kristopher Leblanc is a 67 y.o. male with obesity, atrial fibrillation, HFrEF, and recent hospitalizations who was transferred to [facility] after hospitalization for 2 days at OSH for A fib RVR who developed hematuria with anticoagulation. Upon arrival he was on amiodarone drip, montejo catheter with bloody output. Cardiology and urology were consulted. 04/20: getting BLOOD COLLECTOR med list; continue amio, heparin trial ok [...] 1758 04/27/25 0023 04/27/25 0528 04/27/25 1539 04/27/25181504/28/25804/28/25454 WBC -- -- -- 6.5 -- -- -- 6.8 -- -- -- 9.0 HGB 8.4* 8.4* 8.1* 8.4* 8.3* 8.7* 8.3* 8.2* 9.2* 8.8* 8.2* 8.3* HCT 28.1* 27.8* 25.9* 28.0* 27.9* 28.6* 26.9* 27.5* 30.8* 28.9* 27.1* 27.1* PLT -- -- -- 194 -- -- -- 195 -- -- -- 186 Recent Labs 04/26/2545504/27/2552704/28/25454 NA 138 137 132* K 4.1 4.1 [...] 72 hours. Invalid input(s): PTT Recent Labs 04/27/25181504/27/25202404/28/258 BASETROP 72* -- -- 2HRTROP -- 74* [...] 25.5 mL/hr at 04/28/25825, 25 Units/kg/hr at 04/28/25 08 Primary discharge diagnosis: Atrial fibrillation with rapid ventricular response (CMS/HCC) Other active medical issues also addressed during this admission: Active Hospital Problems Diagnosis Hyperparathyroidism Bilateral lower extremity edema Elevated troponin Atrial fibrillation with rapid ventricular response ([facility]/HCC) CHRIS (acute kidney injury) Hematuria HFrEF (heart failure with reduced ejection fraction) ([facility]) Resolved Hospital Problems No resolved problems to display. ASSESSMENT AND PLAN: Atrial fibrillation with RVR HFrEF Elevated troponin Denies chest pain/SOB [facility] 2021 reportedly without concern EKG: LBBB, reportedly [...] up: PCP Cardiology Urology Anticipated Disposition Location: tbd, [facility]als pending Timeframe: 04/30/2025 Criteria: clinically stable Patient's understanding of illness: ok MDM complexity: [] Mild [x] Moderate [] High Carlos Zendejas MD 04/28/2025, 10:02 AM SMAKER GARMENT FITTER * Carlos Zendejas MD - 04/27/2025 3:46 PM CST Images from the original note were not included. Your life is our life's work [facility] Hospitalist/Hospital Medicine Progress Note LOS: 7 days Room/Bed: 3207/01 Patient name: Kristopher Leblanc Date of : 02/28/1958 HOSPITAL COURSE SUMMARY: Kristopher Leblanc is a 67 y.o. male with obesity, atrial fibrillation, HFrEF, and recent hospitalizations who was transferred to [facility] after hospitalization for 2 days at OSH for A fib RVR who developed hematuria with anticoagulation. Upon arrival he was on amiodarone drip, montejo catheter with bloody output. Cardiology and urology were consulted. 04/20: getting BLOOD COLLECTOR med list; continue amio, heparin trial ok [...] only, Carlos Zendejas MD, 3,100 Units at 04/26/251912 ammonium lactate (LAC-HYDRIN) 12 % lotion, , Topical, BID, Rishabh Reed MD, Given at 04/26/252136 zinc OXIDE-cod liver oil (DESITIN) 40 % topical paste, , Topical, BID, Rishabh Reed MD, Given at 04/26/252137 metoprolol succinate (TOPROL XL) SR 24 hour tablet 25 mg, 25 mg, Oral, daily, Rishabh Reed MD, 25 mg at 04/27/25 1249 ipratropium-albuteroL (DUONEB) 0.5 mg-3 mg(2.5 mg base)/3 [...] Reed MD, Last Rate: 25.5 mL/hr at 04/27/25 0945, 25 Units/kg/hr at 04/27/25 0945 polyethylene glycol (MIRALAX) packet 17 Gram, 17 Gram, Oral, daily, Reed, Rishabh Flako, MD, 17 Gram at 04/23/25 1041 sennosides (SENOKOT) tablet 8.6 mg, 8.6 mg, Oral, daily, Rishabh Reed MD, 8.6 mg at 04/27/25 1249 Facility-Administered Medications Ordered in Other Encounters: [DISCONTINUED] etomidate (AMIDATE) injection, , IV, intra-proc PRN, Edi Morales GASKET MAKER, 9 mg at 04/27/25856 [DISCONTINUED] fentaNYL (PF) (SUBLIMAZE) 50 mcg/mL injection, , IV, intra-proc PRN, Edi Morales, GASKET MAKER, 50 mcg at 04/27/25912 [DISCONTINUED] phenylephrine injection, , IV, intra-proc PRN, Edi Morales, GASKET MAKER, 100 mcg at 04/27/25923 [DISCONTINUED] rocuronium injection, , IV, intra-proc PRN, Edi Morales GASKET MAKER, 50 mg at [DISCONTINUED] sodium chloride 0.9 % infusion, , IV, intra-proc continuous PRN, Edi Morales GASKET MAKER, Stopped-Anesthesia at 04/27/25938 [DISCONTINUED] lidocaine 2 % (XYLOCAINE) injection, , IV, intra-proc PRN, Edi Morales GASKET MAKER, 100 mg at 04/27/25856 [DISCONTINUED] dexAMETHasone (DECADRON) injection, , IV, intra-proc PRN, Edi Morales, GASKET MAKER, 4 mg at 04/27/25904 [DISCONTINUED] sugammadex (BRIDION) 100 mg/mL injection, , IV, intra-proc PRN, Edi Morales, GASKET MAKER, 200 mg at 04/27/25923 Primary discharge diagnosis: [...] RVR HFrEF Elevated troponin Denies chest pain/SOB [facility] 2021 reportedly without concern EKG: LBBB, reportedly [...] in 0.45% NaCl 25,000 unit/250 mL infusion [[id number]] - on hold Code status: Full Code Outpatient follow up: PCP Cardiology Urology Anticipated Disposition Location: [facility] pending Timeframe: 04/29/2025 Criteria: clinically stable Patient's understanding of illness: ok MDM complexity: [] Mild [x] Moderate [] High Carlos Zendejas MD 04/27/2025, 3:47 PM SMAKER GARMENT FITTER * Carlos Zendejas MD - 04/26/2025 9:17 PM CST Images from the original note were not included. Your life is our life's work [facility] Hospitalist/Hospital Medicine Progress Note LOS: 6 days Room/Bed: 4256/ Patient name: Kristopher Leblanc Date of : 02/28/1958 HOSPITAL COURSE SUMMARY: Kristopher Leblanc is a 67 y.o. male with obesity, atrial fibrillation, HFrEF, and recent hospitalizations who was transferred to [facility] after hospitalization for 2 days at OSH for A fib RVR who developed hematuria with anticoagulation. Upon arrival he was on amiodarone drip, montejo catheter with bloody output. Cardiology and urology were consulted. 04/20: getting BLOOD COLLECTOR med list; continue amio, heparin trial ok [...] kg/m?? Intake/Output Summary (Last 24 hours) at 04/26/20252116 Last data filed at 04/26/2025 1703 Gross [...] BID, Komal Crandall MD, Given at 04/26/25 09 zinc OXIDE-cod liver oil (DESITIN) 40 % [...] Oral, BID, ApolinarTara MD, 400 mg at 04/26/25 0900 naloxone [...] Zendejas MD, Last Rate: 25.5 mL/hr at 04/26/251914, 25 Units/kg/hr at 04/26/251914 polyethylene glycol (MIRALAX) packet 17 Gram, 17 [...] HFrEF (heart failure with reduced ejection fraction) (CMS/[facility]) Resolved Hospital Problems No resolved problems to display. ASSESSMENT AND PLAN: Atrial fibrillation with RVR HFrEF Elevated troponin Denies chest pain/SOB [facility] 2021 reportedly without concern EKG: LBBB, reportedly [...] in 0.45% NaCl 25,000 unit/250 mL infusion [[id number]] - on hold Code status: Full Code Outpatient follow up: PCP Cardiology Urology Anticipated Disposition Location: [facility] pending Timeframe: 04/29/2025 Criteria: clinically stable Patient's understanding of illness: ok MDM complexity: [] Mild [x] Moderate [] High Carlos Zendejas MD 04/26/2025, 9:17 PM SMAKER GARMENT FITTER * Rishabh Reed MD - 04/26/2025 3:09 [...] for possible cystoscopy tomorrow Rishabh Reed MD SMAKER GARMENT FITTER * Tara Jiang MD - 04/26/2025 8:04 [...] Topical BID Komal Crandall MD Given at 112133 zinc OXIDE-cod liver oil (DESITIN) 40 % topical paste Topical BID Komal Crandall MD Given at [COMPLETED] potassium CHLORIDE (KLOR-CON) SR tablet 40 [...] Gregorio Rogers MD 650 mg at 04/25/25 162 cefTRIAXone (ROCEPHIN) 2,000 mg in sodium chloride [...] hx of HTN, hyperlipidemia, DM. Hx of PR, Hx of afib and V fib. Cardiogenic [...] off for now. Please call if questions. SMAKER GARMENT FITTER * Komal Crandall MD - 04/25/2025 3:11 PM CST Images from the original note were not included. Your life is our life's work [facility] Hospitalist/Hospital Medicine Progress Note LOS: 5 days Room/Bed: 4257/01 Patient name: Kristopher Leblanc Date of : 02/28/1958 HOSPITAL COURSE SUMMARY: Kristopher Leblanc is a 67 y.o. male with obesity, atrial fibrillation, HFrEF, and recent hospitalizations who was transferred to [facility] after hospitalization for 2 days at OSH for A fib RVR who developed hematuria with anticoagulation. Upon arrival he was on amiodarone drip, montejo catheter with bloody output. Cardiology and urology were consulted. 04/20: getting BLOOD COLLECTOR med list; continue amio, heparin trial ok [...] per 24 hour Intake 425 ml Output 52840 ml Net -9950 ml Last documented weight: [...] RVR HFrEF Elevated troponin Denies chest pain/SOB [facility] 2021 reportedly without concern EKG: LBBB, reportedly [...] in 0.45% NaCl 25,000 unit/250 mL infusion [[id number]] - on hold Code status: Full Code Outpatient follow up: PCP Cardiology Urology Anticipated Disposition Location: [facility] pending Timeframe: 04/26/2025 Criteria: clinically stable Patient's understanding of illness: ok MDM complexity: [] Mild [x] Moderate [] High Komal Crandall MD 04/25/2025, 3:11 PM SMAKER GARMENT FITTER * Agnes Oglesby, RD - 04/25/2025 3:09 PM CST Reason For Nutrition Assessment: LOS, and Other Nutrition Diagnosis Malnutrition Nutrition Diagnosis: (P) Limited findings, Unable to diagnose with malnutrition at this time (11/13/25 1500) In the context of: Acute Illness/Injury and [...] and recent hospitalizations who was transferred to [facility] after hospitalization for 2 days at [...] or pit that persists (severe) (04/25/251499) Hand Oil [place]: (P) Strong animal control supervisor (no findings) (04/25/251499) Percentage of Energy: (P) [...] Data: Height: 5' 11 (180.3 cm) (04/20/25114) [place] body weight: 75.3 kg (166 lb 0.1 [...] 04/24/25 (04/24/25 0119) Stool Consistency - Reference [place] Stool Chart: hard - (type 1) (04/24/25 0119) Bowel Sounds: All Quadrants: hyperactive (04/24/25 1540) Pertinent M Allergies: Allergies Allergen Reactions Penicillins Unknown No past medical history on file. Time spent:Consultation Time (mins): (P) 25 mins (04/25/25 1500) SMAKER GARMENT FITTER * Uvaldo Huber MD - 04/25/2025 11:05 AM CST Nephrology progress note. Attending Physician: Komal Crandall MD Reason for consultation: acute kidney injury Hospital course Kristopher Leblanc is a 67 y.o. male with obesity, atrial fibrillation, HFrEF, and recent hospitalizations who was transferred to [facility] after hospitalization for 2 days at [...] stable. K goal >4 with hx afib. SMAKER GARMENT FITTER * Karyn Walters PA-C - 04/25/2025 11:04 [...] - 04/25 0659 In: 2575 [P.O.:325] Out: 39124 [Urine:30813] Physical Exam: Abdomen: abdomen is soft without [...] Problem: Atrial fibrillation with rapid ventricular response ([facility]) Active Problems: CHRIS (acute kidney injury) Hematuria HFrEF (heart failure with reduced ejection fraction) (CMS/[facility]) Hyperparathyroidism Bilateral lower extremity edema Elevated troponin Plan: NO intervention Still on anticoag per cardiology- recent cardioversion Keep CBI clamped. Continue to monitor UOP, ok for hand irrigation PRN. Hgb improved. Will need f/u as OP to complete hematuria workup Karyn Walters PA-C 11:04 AM Cosigned by Dilcia Salmon MD at 04/27/2025 4:16 AM DRESSMAKER GARMENT FITTER SMAKER GARMENT FITTER SMAKER GARMENT FITTER * Tara Jiang MD - 04/25/2025 7:39 [...] only Komal Crandall MD 1,500 Units at 04/25/25 0522 [...] hx of HTN, hyperlipidemia, DM. Hx of PR, Hx of afib and V fib. Cardiogenic [...] output and Cr Up titrate toprol gradually SMAKER GARMENT FITTER SMAKER GARMENT FITTER * Rhonda Ahn, Physical Therapist - 04/24/2025 2:50 PM CST Attempted to see patient for PT evaluation. PT order recognized. Collaborated with OT and determined patient is at functional baseline. PT will sign off. Thank you, Rhonda Ahn, Physical Therapist SMAKER GARMENT FITTER * Komal Crandall MD - 04/24/2025 1:19 PM CST Images from the original note were not included. Your life is our life's work [facility] Hospitalist/Hospital Medicine Progress Note LOS: 4 days Room/Bed: 4257/01 Patient name: Kristopher Leblanc Date of : 02/28/1958 HOSPITAL COURSE SUMMARY: Kristopher Leblanc is a 67 y.o. male with obesity, atrial fibrillation, HFrEF, and recent hospitalizations who was transferred to [facility] after hospitalization for 2 days at OSH for A fib RVR who developed hematuria with anticoagulation. Upon arrival he was on amiodarone drip, montejo catheter with bloody output. Cardiology and urology were consulted. 04/20: getting BLOOD COLLECTOR med list; continue amio, heparin trial ok [...] Huber MD, Last Rate: 76.25 mL/hr at 04/24/25 0828, 40 mEq at 04/24/25 0828 metoprolol succinate (TOPROL XL) SR 24 hour tablet 25 mg, 25 mg, Oral, daily, Tara Jiang MD,25 mg at 04/24/25 0847 lactated ringers infusion, , IV, continuous, Uvaldo Huber MD, Last Rate: 75 mL/hr at 6, New Bag at 04/24/25 1316 fentaNYL (PF) [...] HFrEF (heart failure with reduced ejection fraction) ([facility]) Resolved Hospital Problems No resolved problems to display. ASSESSMENT AND PLAN: Atrial fibrillation with RVR HFrEF Elevated troponin Denies chest pain/SOB [facility] 2021 reportedly without concern EKG: LBBB, reportedly [...] in 0.45% NaCl 25,000 unit/250 mL infusion [[id number]] - on hold Code status: Full Code Outpatient follow up: PCP Cardiology Urology Anticipated Disposition Location: [facility] pending Timeframe: 04/24/2025 Criteria: clinically stable Patient's understanding of illness: ok MDM complexity: [] Mild [x] Moderate [] High Komal Crandall MD 04/24/2025, 1:19 PM SMAKER GARMENT FITTER * Uvaldo Huber MD - 04/24/2025 12:21 PM CST Nephrology progress note. Attending Physician: Komal Crandall MD Reason for consultation: acute kidney injury Hospital course Kristopher Leblanc is a 67 y.o. male with obesity, atrial fibrillation, HFrEF, and recent hospitalizations who was transferred to [facility] after hospitalization for 2 days at [...] stable. K goal >4 with hx afib. SMAKER GARMENT FITTER SMAKER GARMENT FITTER * Karyn Walters PA-C - 04/24/2025 9:56 [...] in bag/tubing Labs: BMP: Recent Labs 04/22/25 0445 04/22/25 1430 04/23/25 0312 04/24/25 0510 GLUCOSE 155* [...] Problem: Atrial fibrillation with rapid ventricular response ([facility]) Active Problems: CHRIS (acute kidney injury) Hematuria HFrEF (heart failure with reduced ejection fraction) ([facility]) Hyperparathyroidism Bilateral lower extremity edema Elevated troponin [...] Dilcia Salmon MD at 04/27/2025 4:14 AM DRESSMAKER GARMENT FITTER SMAKER GARMENT FITTER SMAKER GARMENT FITTER * Tara Jiang MD - 04/24/2025 7:44 [...] intra-proc ONE time Aman Robles MD 0.5 [place] at 04/23/25 0844 fentaNYL (PF) (SUBLIMAZE) 50 [...] hx of HTN, hyperlipidemia, DM. Hx of PR, Hx of afib and V fib. Cardiogenic [...] urine output and Cr Trial of toprol SMAKER GARMENT FITTER * Komal Crandall MD - 04/23/2025 2:53 PM CST Images from the original note were not included. Your life is our life's work [facility] Hospitalist/Hospital Medicine Progress Note LOS: 3 days Room/Bed: 4257/01 Patient name: Kristopher Leblanc Date of : 02/28/1958 HOSPITAL COURSE SUMMARY: Kristopher Leblanc is a 67 y.o. male with obesity, atrial fibrillation, HFrEF, and recent hospitalizations who was transferred to [facility] after hospitalization for 2 days at OSH for A fib RVR who developed hematuria with anticoagulation. Upon arrival he was on amiodarone drip, montejo catheter with bloody output. Cardiology and urology were consulted. 04/20: getting BLOOD COLLECTOR med list; continue amio, heparin trial ok [...] Skin: negative LABORATORY: Recent Labs 04/20/25 1829 04/20/25 23204/21/25 0439 04/21/25 1249 04/21/25 1813 04/22/25 0001 04/22/2544404/22/25 1430 04/22/25212304/22/25232104/23/25 0312 04/23/25 0611 04/23/25 1324 WBC -- [...] -- 210 -- -- Recent Labs 04/21/25 04304/22/255 04/22/25 1430 04/23/25 031 NA 134* 136 -- 134* K 3.9 [...] intra-proc ONE time, Aman Robles MD, 0.5 [place] at 04/23/25 0844 fentaNYL (PF) (SUBLIMAZE) 50 mcg/mL injection 200 mcg, 200 mcg, IV, intra-proc PRN, Aman Robles MD, 25 mcg at 04/23/25 0920 [COMPLETED] lidocaine 2% jelly 10 mL, 10 mL, See Admin Instructions, intra-proc ONE time, Aman Robles MD, 6 mL at 04/23/25 08 midazolam (VERSED) injection 10 mg, 10 mg, IV, intra-proc PRN, Aman Robles MD, 1 mg at sodium chloride 0.9 % infusion, , IV, continuous, Aman Robles MD, Last Rate: 40 mL/hr at 04/23/25 0853, New Bag at 04/23/2553 sodium chloride flush injection 10 mL, 10 [...] BID, Tara Jiang MD, 400 mg at 04/23/25 1240 potassium [...] HFrEF (heart failure with reduced ejection fraction) ([facility]) Resolved Hospital Problems No resolved problems to display. ASSESSMENT AND PLAN: Atrial fibrillation with RVR HFrEF Elevated troponin Denies chest pain/SOB [facility] 2021 reportedly without concern EKG: LBBB, reportedly [...] in 0.45% NaCl 25,000 unit/250 mL infusion [[id number]] - on hold Code status: Full Code Outpatient follow up: PCP Cardiology Urology [facility] Timeframe: 04/24/2025 Criteria: clinically stable Patient's understanding of illness: ok MDM complexity: [] Mild [x] Moderate [] High Komal Crandall MD 04/23/2025, 2:53 PM SMAKER GARMENT FITTER * Uvaldo Huber MD - 04/23/2025 12:51 PM CST Nephrology progress note. Attending Physician: Komal Crandall MD Reason for consultation: acute kidney injury Hospital course Kristopher Leblanc is a 67 y.o. male with obesity, atrial fibrillation, HFrEF, and recent hospitalizations who was transferred to [facility] after hospitalization for 2 days at [...] stable. K goal >4 with hx afib. SMAKER GARMENT FITTER * Nahomi Oliveira RN - 04/23/2025 12:46 PM CST Cardiopulmonary Rehab completed CHF Education with patient. The patient was receptive to the education and verbalized understanding. No referral was sent to Cardiopulmonary Rehab Phase 2 due to: Patient is discharging to a Penitentiary or [facility] [facility] Nursing facility (>60 days). Total Time Spent with the Patient: 8 minutes. Units Charged: 1 Learners: Patient Readiness: Acceptance Teaching Points Response Understanding Heart Failure Verbalizes Understanding Heart Failure Medication Management Importance of Taking as Prescribed Side Effects Preferred Pharmacy: [id number] [place] [address] [address] [facility] [address] Verbalizes Understanding Diet and [...] Issues Verbalizes Understanding Primary Care Provider Name: Site Safety Manager Name: No primary care provider on file. No care produce team lead to display Post Hospitalization Follow Up Appointment With: Date/Time: Health Related Social Needs Impacting Care None Identified Consults and Referrals Identified: None Identified Comments: SMAKER GARMENT FITTER * Tara Jiang MD - 04/23/2025 12:11 [...] intra-proc ONE time Aman Robles MD 0.5 [place] at 04/23/25 0844 fentaNYL (PF) (SUBLIMAZE) 50 [...] PRN Gregorio Rogers MD 650 mg at 04/21/25 2051 cefTRIAXone (ROCEPHIN) 2,000 mg in sodium chloride [...] infusion 20 Units/kg/hr (Adjusted) IV titrate Komal Cradnall MD 20.4 mL/hr at 04/23/25 0649 20 [...] hx of HTN, hyperlipidemia, DM. Hx of PR, Hx of afib and V fib. Cardiogenic [...] then daily Monitor urine output and Cr SMAKER GARMENT FITTER * Karyn Walters PA-C - 04/23/2025 10:34 [...] BMP: Recent Labs 04/20/25 1358 04/21/25 0439 04/22/255 04/22/25 1430 04/23/25 0312 GLUCOSE 108* 192* [...] with rapid ventricular response (CMS/HCC) Active Problems: CHRSI (acute kidney injury) Hematuria HFrEF (heart failure with reduced ejection fraction) (CMS/HCC) Hyperparathyroidism Bilateral lower extremity edema Elevated troponin Plan: Clamped CBI this AM Restart if UOP anything more than clear pink or if numerous clots occur. No immediate plan for intervention today NPO at midnight, will reassess in am. Messaged Cardiology to see what plan is for [facility] anticoagulation He will minimum need OP f/u to complete hematuria workup. Karyn Walters PA-C 10:34 AM Cosigned by Dilcia Salmon MD at 04/27/2025 4:13 AM DRESSMAKER GARMENT FITTER SMAKER GARMENT FITTER SMAKER GARMENT FITTER * Aman Robles MD - 04/23/2025 8:31 [...] and anesthesia (refer to procedural consent form [id number]), specific risks of transesophageal echocardiogram discussed, including [...] pre-sedation assessment? No Aman Robles MD 04/23/2025 SMAKER GARMENT FITTER * Stefano Espinoza, Physical Therapist - 04/22/2025 2:00 PM CST Attempted to see patient for PT evaluation. Patient/Family chose not to participate in therapy due to refusing needs of PT during his current acute stay at [facility] despite education on benefits of participation with therapy during acute stay. Patient was aggravated and unwilling to work withtherapy and will be discharged from PT this date. Patient educated to communicate to nursing if decision to refuse PT during stay changes . Thank you, Stefano Espinoza, Physical Therapist SMAKER GARMENT FITTER * Komal Crandall MD - 04/22/2025 11:56 AM CST Images from the original note were not included. Your life is our life's work [facility] Hospitalist/Hospital Medicine Progress Note LOS: 2 days Room/Bed: 4257/ Patient name: Kristopher Leblanc Date of : 02/28/1958 HOSPITAL COURSE SUMMARY: Kristopher Leblanc is a 67 y.o. male with obesity, atrial fibrillation, HFrEF, and recent hospitalizations who was transferred to [facility] after hospitalization for 2 days at OSH for A fib RVR who developed hematuria with anticoagulation. Upon arrival he was on amiodarone drip, montejo catheter with bloody output. Cardiology and urology were consulted. 04/20: getting BLOOD COLLECTOR med list; continue amio, heparin trial ok [...] 227 -- -- -- 201 Recent Labs 04/20/25 02204/20/25 1358 04/21/25 0439 04/22/25 0445 NA 133* [...] at 04/22/25 0120, 0.5 mg/min at 04/22/25 012 heparin injection 6,100 Units, 60 Units/kg (Adjusted), IV, ONE time only, Maricruz Galvan MD heparin in 0.45% NaCl 25,000 unit/250 mL infusion, 15 Units/kg/hr (Adjusted), IV, titrate, Maricruz Galvan MD, Last Rate: 15.3 mL/hr at 04/22/25921, 15 Units/kg/hr at 04/22/25921 polyethylene glycol (MIRALAX) packet 17 Gram, 17 Gram, Oral, daily, Maricruz Galvan MD, 17 Gram at 04/22/25 09 sennosides (SENOKOT) tablet 8.6 mg, 8.6 mg, Oral, daily, Maricruz Galvan MD, 8.6 mg at 04/22/25 09 Primary discharge diagnosis: Atrial fibrillation with rapid ventricular response (CMS/HCC) Other active medical issues also addressed during this admission: Active Hospital Problems Diagnosis Hyperparathyroidism Bilateral lower extremity edema Elevated troponin Atrial fibrillation with rapid ventricular response (CMS/HCC) CHRIS (acute kidney injury) Hematuria HFrEF (heart failure with reduced ejection fraction) ([facility]) Resolved Hospital Problems No resolved problems to display. ASSESSMENT AND PLAN: Atrial fibrillation with RVR HFrEF Elevated troponin Denies chest pain/SOB [facility] 2021 reportedly without concern EKG: LBBB, reportedly [...] in 0.45% NaCl 25,000 unit/250 mL infusion [[id number]] - on hold Code status: Full Code Outpatient follow up: PCP Cardiology Urology Anticipated Disposition Location: tbd, [facility] pending Timeframe: 04/24/2025 Criteria: clinically stable Patient's understanding of illness: ok MDM complexity: [] Mild [] Moderate [x] High Komal Crandall MD 04/22/2025, 11:56 AM SMAKER GARMENT FITTER * Kenisha Frias, Occupational Therapist - 04/22/2025 11:03 AM CST [facility] - Therapy Services [facility]. Acute Occupational Therapy Evaluation 04/22/2025 Room: [address] [place] [address] Name: Kristopher Leblanc Age: 67 y.o. Patient Class: Inpatient Date of : 02/28/1958 Insurance: Payor: [employer] MEDICARE ADVANTAGE / Plan: [employer] PPO [id number] / Product Type: PPO / [...] at home: staff at nursing facility in [place] Home environment: penitentiary Durable medical equipment already in home: Walkers: [...] when asked why he moved to the retirement a few months ago he states something [...] Activities of Daily Living Feeding: independent for [id number] excursion during oral care Grooming: minimal assistance [...] desire to perform ADLs only this session. [facility] AM-PAC Daily Activity How much help from [...] no restrictions ASSESSMENT & PLAN Evaluation Details Kristopher Leblanc is a 67 y.o. male referred [...] activity, anticipated discharge disposition, once medically ready: [facility] fac ility (04/22/251102). Rationale: Patient needs daily (weekday) skilled OT services. Anticipate tolerance is limited for intensive or adapted intensive rehab program, extended recovery time needed, and patient may require retirement after recovery from current condition. * The final discharge location is determined through physician, case management, and patient/caregiver input along with insurance authorization of skilled services when appropriate. Plan of care and discharge recommendations shared with patient and PT OT recommended DME and AE upon discharge: No new DME recommended (04/22/251102) No new additional adaptive equipment necessary (04/22/251102) [...] for this referral, Kenisha Frias, Occupational Therapist SMAKER GARMENT FITTER * Leo Ponce, RT - 04/22/2025 10:27 AM CST Images from the original note were not included. Patient educated regarding Definity ultrasound contrast and verbalizes positive understanding. Definity administered per policy. Patient free from complaints throughout procedure. [facility] PHYSICIAN ORDERS # [id number] ECHOCARDIOGRAPHY PROTOCOL FOR USE OF ECHOCARDIOGRAPHIC IMAGE ENHANCING AGENT (DEFINITY) This protocol is to be used during an Echocardiogram when a patient is technically difficult to image (as defined by [place] Society of Echocardiography guidelines - the inability [...] Health Record ???per protocol?? (will require interpreting truck rental manager to sign). Trained Echo Technologists may proceed with use of echocardiographic image enhancing agent. [facility] currently utilizes Definity (perflutren lipid microspheres). Administer [...] Prescribing Information package insert; Revised March 2011 http://www.[employer].com/pdf/Definity%20US%20PI%04004654-1919% .pdf ASE Consensus Statement - [place] Society of Echocardiography Consensus Statement on the Clinical Applications of Ultrasonic Contrast Agents in Echocardiography; NATHANAEL, April 2008 http://www.asecho.org/files/public/ContrastConsensusStatement.pdf www.[employer].com/how-administration.html Approved by: Medication Management Committee Initiated: 10/13/2011 Revised: 10/20/2023 Expires: SMAKER GARMENT FITTER * Stefano Espinoza, Physical Therapist - 04/22/2025 8:00 AM CST Attempted to see patient for PT evaluation. Patient unavailable for therapy session due to cytoscopy this AM. RN requested PT come evaluate patient this PM. Will continue with attempts for evaluation/established plan of care. Thank you, Stefano Espinoza, Physical Therapist SMAKER GARMENT FITTER * Tara Jiang MD - 04/22/2025 7:20 [...] PRN Gregorio Rogers MD 650 mg at 04/21/25 205 cefTRIAXone (ROCEPHIN) [...] hx of HTN, hyperlipidemia, DM. Hx of PR, Hx of afib and V fib. Cardiogenic [...] urine output and Cr FRED/DCCV on Tuesday SMAKER GARMENT FITTER * Pili Miller RN - 04/21/2025 6:45 PM CST Irrigation intake is estimated. I was notified by the patient that the CBI bags were spiked by the provider so we could not clamp one side and accurately begin measurement of irrigation intake. Discussed with night nurse, once she spikes new bags we can begin more accurate I and O's. SMAKER GARMENT FITTER * Rishabh Reed MD - 04/21/2025 3:02 [...] cystoscopy tomorrow Pt updated Rishabh Reed MD SMAKER GARMENT FITTER * Maricruz Galvan MD - 04/21/2025 8:10 AM CST Images from the original note were not included. Your life is our life's work [facility] Hospitalist/Hospital Medicine Progress Note LOS: 1 day Room/Bed: [facility]/ Patient name: Kristopher Leblanc Date of : 02/28/1958 HOSPITAL COURSE SUMMARY: Kristopher Leblanc is a 67 y.o. male with obesity, atrial fibrillation, HFrEF, and recent hospitalizations who was transferred to [facility] after hospitalization for 2 days at OSH for A fib RVR who developed hematuria with anticoagulation. Upon arrival he was on amiodarone drip, montejo catheter with bloody output. Cardiology and urology were consulted. 04/20: getting BLOOD COLLECTOR med list; continue amio, heparin trial ok [...] 214 -- -- -- 227 Recent Labs 04/20/2522804/20/25 1358 04/21/25 0439 NA 133* 134* 134* [...] Gregorio Rogers MD, 650 mg at 04/20/25 2222 cefTRIAXone (ROCEPHIN) 2,000 mg in sodium chloride [...] RVR HFrEF Elevated troponin Denies chest pain/SOB [facility] 2021 reportedly without concern EKG: LBBB, reportedly baseline Trop 139 - 147 - 152 Cardiology consulted on admission Continue amio drip Hold heparin Tentatively planning FRED/DCCV Tuesday TTE pending Hematuria Reported once anticoagulation was started Bleeding resumed prior to resuming heparin Monitor Hgb Urology consulted CBI NPO N for cystoscopy 04/21 CHRIS JANENE at OSH [...] in 0.45% NaCl 25,000 unit/250 mL infusion [[id number]] - on hold Code status: Full Code Outpatient follow up: PCP Cardiology Urology Anticipated Disposition Location: [facility] pending Timeframe: 04/22/2025 Criteria: clinically stable Patient's understanding of illness: ok MDM complexity: [] Mild [] Moderate [x] High Maricruz Galvan MD 04/21/2025, 8:10 AM SMAKER GARMENT FITTER * Aga Green NP - 04/21/2025 7:54 [...] Intake/Output Summary (Last 24 hours) at 04/21/2025 0754 Last data filed at 04/20/2025 1300 Gross [...] -- -- -- 227 BMP: Recent Labs 04/20/25 0229 04/20/25 1358 04/21/25 0439 GLUCOSE 103* 108* 192* BUN 97* 97* 101* CREAT 2.66* 2.89* 3.10* NA 133* 134* 134* K 3.2* 3.6 3.9 CO2 22 21* 20* MG 1.9 -- 1.9 Cardiac monitoring: AF, rate 105, no new arrhythmia. ASSESSMENT: 67 M, hx of HTN, hyperlipidemia, DM. Hx of PR, Hx of afib and V fib. Cardiogenic [...] from urology to go back on anticoagulation [id number] Moderate-High Risk 3 Total Score 1 Hypertension Hx 1 Heart Failure Hx 1 Age Aga Green MSN, DIRECTOR OF STRATEGIC SALES, INNER TUBE INSERTER-C Cardiology In collaboration with Dr. Aman Robles Cosigned by Aman Robles MD at 04/21/2025 11:55 AM DRESSMAKER GARMENT FITTER SMAKER GARMENT FITTER SMAKER GARMENT FITTER SMAKER GARMENT FITTER SMAKER GARMENT FITTER * Nelida Paez, RN - 04/20/2025 4:58 PM CST Patient refused nurse to take a picture of his coccyx and pressure areas. SMAKER GARMENT FITTER * Rafaela Ortega PHARMACIST - 04/20/2025 2:14 PM CST [facility] Adult Heparin Anti-Xa Monitoring Protocol [facility] ORDERS ARE ENTERED ???PER PROTOCOL?? Nursing [...] Maricruz Galvan MD at 04/20/2025 3:34 PM DRESSMAKER GARMENT FITTER SMAKER GARMENT FITTER SMAKER GARMENT FITTER * Maricruz Galvan MD - 04/20/2025 1:52 PM CST Images from the original note were not included. Your life is our life's work [facility] Hospitalist/Hospital Medicine Progress Note LOS: 0 days Room/Bed: [address] [place] [address] Patient name: Kristopher Leblanc Date of : 02/28/1958 HOSPITAL COURSE SUMMARY: Kristopher Leblanc is a 67 y.o. male with obesity, atrial fibrillation, HFrEF, and recent hospitalizations who was transferred to [facility] after hospitalization for 2 days at OSH for A fib RVR who developed hematuria with anticoagulation. Upon arrival he was on amiodarone drip, montejo catheter with bloody output. Cardiology and urology were consulted. 04/20: getting BLOOD COLLECTOR med list; continue amio, heparin trial ok [...] 97* CREAT 2.66* GLUCOSE 103* Recent Labs 04/20/25228 TOTALPROTEIN 7.0 ALBUMIN 3.6 [...] RVR HFrEF Elevated troponin Denies chest pain/SOB [facility] 2021 reportedly without concern EKG: LBBB, reportedly [...] in 0.45% NaCl 25,000 unit/250 mL infusion [[id number]] Code status: Full Code Outpatient follow up: PCP Cardiology Urology Anticipated Disposition Location: [facility] Timeframe: 04/22/2025 Criteria: clinically stable Patient's understanding of illness: ok MDM complexity: [] Mild [] Moderate [x] High Maricruz Galvan MD 04/20/2025, 1:52 PM SMAKER GARMENT FITTER SMAKER GARMENT FITTER * Tara Jiang MD - 04/20/2025 8:56 AM CST Requesting MD: Dr. Galvan Chief reason for consult: CM/HF HPI: 67 M, hx of HTN, hyperlipidemia, DM. Hx of PR, Hx of afib and V fib. Cardiogenic [...] hx of HTN, hyperlipidemia, DM. Hx of PR, Hx of afib and V fib. Cardiogenic [...] urine output and Cr FRED/DCCV on Tuesday SMAKER GARMENT FITTER SMAKER GARMENT FITTER documented in this encounter H&P Notes * Gregorio Rogers MD - 04/20/2025 1:19 AM CST Images from the original note were not included. [place], [place] HOSPITALIST HISTORY AND PHYSICAL Patient name: Kristopher Leblanc Date of : 02/28/1958 CSN number: [id number] PCP: No primary care provider on file. Chief Complaint: No chief complaint on file. History of present illness: Patient was seen and examined at the bedside. 67-year-old male who was transferred to [facility] after hospitalization for 2 days at [...] PLAN: 67-year-old male who was transferred to [facility] after hospitalization for 2 days at [...] been made to improve accuracy of the engineer. Any obvious errors or omissions should be clarified with the authorof this document. SMAKER GARMENT FITTER documented in this encounter Procedure Notes * Nahomi Howell RDMS - 04/21/2025 11:06 AM CST CARDIOVASCULAR SERVICES NONINVASIVE VASCULAR LAB- EXT 11597 TECHNOLOGIST PRELIMINARY WORKSHEET PHYSICIAN INTERPRETATION TO FOLLOW Patient Name: Kristopher Leblanc #: [id number] Date:04/21/2025 Tech Initials: tereso Exam End [...] be consistent with venous insufficiency Technologist Comments: SMAKER GARMENT FITTER documented in this encounter Consult Notes * Uvaldo Huber MD - 04/22/2025 6:16 PM CSTAssociated Order(s): IP CONSULT TO NEPHROLOGY Nephrology Consult Attending Physician: Komal Crandall MD Reason for consultation: acute kidney injury History of Present Illness. Kristopher Leblanc is a 67 y.o. male with obesity, atrial fibrillation, HFrEF, and recent hospitalizations who was transferred to [facility] after hospitalization for 2 days at [...] stable. K goal >4 with hx afib. SMAKER GARMENT FITTER * Rishabh Reed MD - 04/20/2025 6:14 PM CSTAssociated Order(s): IP CONSULT TO UROLOGY Urology Consult/H&P Kristopher Leblanc : 02/28/1958 Age: 67 y.o. Sex: male CSN: [id number] Admit Date: 04/20/2025 1:00 AM Atrial fibrillation with rapid ventricular response (CMS/HCC) TAHIRA Leblanc is a 67 y.o. male admitted [...] HFrEF (heart failure with reduced ejection fraction) (CMS/[facility]) BPH Gross hematuria PLAN: His CT scan [...] Portions of this document were created using The History Presscadastral surveyor software. Effort has beenmade to ensure the accuracy of the engineer. Any obvious errors or omissions should be clarified with the author of this document. SMAKER GARMENT FITTER * Flako Peterson RN - 04/20/2025 8:34 AM CSTAssociated Order(s): IP CONSULT TO IV TEAM VASCULAR ACCESS CONSULT PATIENT NAME: Kristopher Leblanc DATE OF : 02/28/1958 CSN: [id number] DATE: 04/20/2025 Room: [address] [place] [address] Admit Date: 04/20/2025 Hospital day: LOS: 0 [...] to perform venipuncture twice. Flako Peterson RN SMAKER GARMENT FITTER SMAKER GARMENT FITTER documented in this encounter OR Notes * Operative Report - Reed, Rishabh Flako, MD - 04/27/2025 12:37 PM CST NAME: Kristopher Leblanc : 02/28/1958 MRN; [id number] CSN: [id number] ADMISSION DATE: 04/20/2025 OPERATIVE REPORT DATE: 04/27/2025 SURGEON: Rishabh Reed MD DIRECTOR OF CAREER RESOURCES: None PRE-OP DIAGNOSIS: Gross hematuria POST-OP DIAGNOSIS: [...] fashion. I began by inserting a 22 Estonian rigid scope to the patient urethra and [...] The scope was withdrawn and a 20 Estonian three-way catheter was placed per urethra with 2% lidocaine jelly anesthetizing his urethra. He tolerated the procedure well and there were no intraoperative complications. Plan: We will resume CBI and clamp in the morning. Rishabh Reed MD 04/27/2025 SMAKER GARMENT FITTER * Anesthesiology - Kristopher Mitchell DO - 04/22/2025 8:01 AM CST High risk patient scheduled for bladder fulguration. In Afib with RVR, echo ordered. Will need HR < 100 and echo results before deciding whether it's safe to proceed. SMAKER GARMENT FITTER documented in this encounter Miscellaneous Notes * [...] patient remained at Level 1 bed mobility. SMAKER GARMENT FITTER * Care Plan - Nahomi Kruger RN - 04/28/2025 10:40 AM CST Problem: Discharge Planning Goal: Identify discharge needs upon admission and through discharge Description: Outcome: Progressing Telegraphic Typewriter Operator Chief Discharge Planning CBI clamped today, montejo to be removed, pt to return to [facility] in [place] upon DC. May return skilled if working with therapies, if not may return LTC Expected Discharge Date Apr 30, 2025 Plan Discharge To: Nursing Home Facility (04/28/25 1040) Plan Discharge To - Alternate: Medicaid certified nursing facility (04/28/25 1040) Referrals Status: Facility Referrals - Accepted Follow-up on Referrals Sent: No (04/28/25 104) Preferred Pharmacy: [id number] - [facility] [address] [facility] [address] Patient / Family Communications: Patient/Family Communications: Plan Discharge To Update (04/23/25 121) Resources Provided Transportation Plan: Has discharge transport been arranged?: No (04/28/25 104) Follow Up Appointments Scheduled Nahomi Kruger RN SMAKER GARMENT FITTER * Care Plan - Nahomi Kruger RN - 04/26/2025 11:39 AM CST Problem: Discharge Planning Goal: Identify discharge needs upon admission and through discharge Description: Outcome: Progressing Telegraphic Typewriter Operator Chief Discharge Planning No change in disposition. Will either return skilled or return LTC, depending on if the pt works with therapy. Expected Discharge Date Apr 26, 2025 Plan Discharge To: Nursing Home Facility (04/26/25 113) Plan Discharge To - Alternate: Medicaid certified nursing facility (04/26/25 113) Referrals Status: Facility Referrals - Accepted Follow-up on Referrals Sent: No (04/26/25 113) Preferred Pharmacy: [id number] [address] [facility] [address] Patient / Family Communications: Patient/Family Communications: Plan Discharge To Update (04/23/25 121) Resources Provided Transportation Plan: Has discharge transport been arranged?: No (04/26/25 113) Follow Up Appointments Scheduled Nahomi Kruger RN SMAKER GARMENT FITTER * Care Plan - Nahomi Kruger RN - 04/25/2025 10:56 AM CST Problem: Discharge Planning Goal: Identify discharge needs upon admission and through discharge Description: Outcome: Progressing Telegraphic Typewriter Operator Chief Discharge Planning Spoke to [facility] yesterday, they are happy to take the [...] Date Apr 26, 2025 Plan Discharge To: Nursing Home Facility (04/25/25 105) Plan Discharge To - Alternate: Medicaid certified nursing facility (04/25/25 105) Referrals Status: Facility Referrals - Accepted Follow-up on Referrals Sent: No (04/25/25 105) Preferred Pharmacy: [id number] [place] [address] [place] [address] [facility] [address] Patient / Family Communications: Patient/Family Communications: Plan Discharge To Update (04/23/25 1210) Resources Provided Transportation Plan: Has discharge transport been arranged?: No (04/25/25 105) Follow Up Appointments Scheduled Nahomi Kruger RN SMAKER GARMENT FITTER * Care Plan - Brianna Hollis RN [...] or catheter assessments were documented regarding infection. SMAKER GARMENT FITTER * Care Plan - Laury Frausto RCP [...] wearing the device? No Laury Frausto RCP SMAKER GARMENT FITTER * Care Plan - Nahomi Kruger RN - 04/24/2025 10:43 AM CST Problem: Discharge Planning Goal: Identify discharge needs upon admission and through discharge Description: Outcome: Progressing Telegraphic Typewriter Operator Chief Discharge Planning Return to [facility] Expected Discharge Date Apr 24, 2025 Plan Discharge To: Nursing Home Facility (04/24/25 104) Plan Discharge To - Alternate: Medicaid certified nursing facility (04/24/25 104) Referrals Status: Facility Referrals - Accepted Follow-up on Referrals Sent: No (04/24/25 104) Preferred Pharmacy: [id number] [place], [place] - [facility] [place] [facility] Patient / Family Communications: Patient/Family Communications: Plan Discharge To Update (04/23/25 1210) Resources Provided Transportation Plan: Has discharge transport been arranged?: No (04/24/251042) Follow Up Appointments Scheduled Nahomi Kruger RN SMAKER GARMENT FITTER * Care Plan - Mariah Gonzales, Occupational Therapist - 04/24/2025 10:00 AM DRESSMAKER GARMENT FITTER [facility] - Therapy Services 3K Ph. Acute Occupational Therapy Treatment 04/24/2025 Room: [address] [place] [address] Name: Kristopher Leblanc Age: 67 y.o. Patient Class: Inpatient Date of : 02/28/1958 Insurance: Payor: [employer] MEDICARE ADVANTAGE / Plan: [employer] PPO [id number] / Product Type: PPO / [...] d/t unsure of pt's baseline at facility [facility] AM-PAC Daily Activity How much help from [...] upon discharge: No new DME recommended (04/22/25 1103) No new additional adaptive equipment necessary (04/22/25 110) Nursing Staff Mobility Recommendations Recommended daily activity [...] Thank you for this referral, Ashley Fulton, Medical Record Retrieval Specialist Collaborated with LACHELLE regarding plan of care. Per discussion with nursing staff at [facility] in [place], that patient has been a LT resident [...] intervention, will discharge patient from caseload. Mariah Gonzales Occupational Therapist SMAKER GARMENT FITTER SMAKER GARMENT FITTER SMAKER GARMENT FITTER SMAKER GARMENT FITTER * Care Plan - Laury Frausto RCP - 04/24/2025 2:15 AM CST NOC CPAP [...] Size: Home (04/23/25) Oxygen Flow (if applicable): Oxygen Therapy Flow (L/min): 1 (04/23/25 0700) Is the patient wearing the device? No Laury Frausto RCP SMAKER GARMENT FITTER * Care Plan - Thuan Alfonso GN [...] and rest was promoted throughout the shift. 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 Pt still has CBI Expected Discharge Date Apr 24, 2025 Plan Discharge To: Nursing Home Facility (04/23/25 1210) Plan Discharge To - Alternate: Medicaid certified nursing facility (04/23/25 1210) Referrals Status: Facility Referrals - Accepted Follow-up on Referrals Sent: No (04/23/251209) Preferred Pharmacy: [id number] [place] [address] [place] [address] [facility] [address] Patient / Family Communications: Patient/Family Communications: Plan Discharge To Update (04/23/251209) Resources Provided Transportation Plan: Has discharge transport been arranged?: No (04/23/251209) Follow Up Appointments Scheduled Nahomi Kruger RN SMAKER GARMENT FITTER * Care Plan - Thuan Alfonso GN [...] regular safety checks, were consistently implemented throughout theshift, and no falls or injuries were documented. [...] repositioning and mobility promotion interventions were performed. 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 Operator Chief Discharge Planning Pt plans to return to [facility] in [place] Expected Discharge Date Apr 24, 2025 Plan Discharge To: Nursing Home Facility (04/22/251347) Plan Discharge To - Alternate: Medicaid certified nursing facility (04/22/251347) Referrals Status: Facility Referrals - Accepted Follow-up on Referrals Sent: No (04/22/251347) Preferred Pharmacy: [facility] #[id number] [place] [address] [place] [facility] [address] Patient / Family Communications: Patient/Family Communications: Plan Discharge To Update (04/22/251347) Resources Provided Transportation Plan: Has discharge transport been arranged?: No (04/22/251347) Follow Up Appointments Scheduled Nahomi Kruger RN SMAKER GARMENT FITTER * Care Plan - Asmita Walker RCP [...] wearing the device? Yes Asmita Walker RCP SMAKER GARMENT FITTER * Care Plan - TiffanieMonique, FLY RAIL OPERATOR - 04/20/2025 11:28 AM CST Care Management Initial Assessment Initial Discharge Planning Assessment completed. Discussed Care Management's role and Discharge planning. Plan Discharge To: Home or Self Care Does the patient have family and/or a caregiver that is willing, able and available to assist if needed? Yes - Name/Relation:staff at [facility] Comments: call to patient on his cell phone # [phone]. He states [place] is [place] [facility] sent. We will need PT/OT orders (have asked nursing in secure chat). Patient states he would like a return referral sent but wants to think about that decision to return. Patient Discharge Planning Goal: to consider returning to [facility] Patient will potentially discharge to a SNF/NH? Returning Care Management visited with: patient via phone. Prior to admission, patient resides at: [facility]. Prior to admission, living arrangements: group setting. [...] Payor: [employer] MEDICARE ADVANTAGE / Plan: [employer] PPO SNP MCR / Product Type: PPO [...] will continue to follow and assist asneeded. SMAKER GARMENT FITTER documented in this encounter Plan of Treatment Scheduled Procedures Name Priority Associated Diagnoses Date/Ti me CYSTOURETHROSCOPY BLADDER FULGURATION n/a 04/23/2025 1:40 PM DRESSMAKER GARMENT FITTER Scheduled Referrals Name Type Priority Associated Diagnoses Order Schedule AMB REFERRAL TO CARDIAC ELECTROPHYSIOLOGY Outpatient Referral Routine Atrial fibrillation with rapid ventricular response (CMS/HCC) Ordered: 04/29/2025 AMB REFERRAL TO FAMILY PRACTICE Outpatient Referral Routine Atrial fibrillation with rapid ventricular response (CMS/HCC) Ordered: 04/29/2025 documented as of this encounter Procedures Procedure Name Priority Date/Time Associated Diagnosis Comments TELEMETRY REPORT 04/30/2025 2:09 AM DRESSMAKER GARMENT FITTER HEMOGLOBIN AND HEMATOCRIT Routine 04/29/2025 11:43 AM DRESSMAKER GARMENT FITTER UNFRACTIONATED HEPARIN ACTIVITY Timed Study 04/29/2025 4:34 AM DRESSMAKER GARMENT FITTER CBC WITH DIFFERENTIAL Routine 04/29/2025 4:34 AM DRESSMAKER GARMENT FITTER PTT Routine 04/29/2025 4:34 AM DRESSMAKER GARMENT FITTER MAGNESIUM LEVEL Routine 04/29/2025 4:34 AM DRESSMAKER GARMENT FITTER BASIC METABOLIC PANEL Routine 04/29/2025 4:34 AM DRESSMAKER GARMENT FITTER HEMOGLOBIN AND HEMATOCRIT Routine 04/28/2025 8:43 PM DRESSMAKER GARMENT FITTER HEMOGLOBIN AND HEMATOCRIT Routine 04/28/2025 1:21 PM DRESSMAKER GARMENT FITTER UNFRACTIONATED HEPARIN ACTIVITY Timed Study 04/28/2025 4:55 AM DRESSMAKER GARMENT FITTER CBC WITH DIFFERENTIAL Routine 04/28/2025 4:55 AM DRESSMAKER GARMENT FITTER MAGNESIUM LEVEL Routine 04/28/2025 4:55 AM DRESSMAKER GARMENT FITTER BASIC METABOLIC PANEL Routine 04/28/2025 4:55 AM DRESSMAKER GARMENT FITTER TROPONIN 6 HR, 5TH GEN Timed Study 12:09 AM DRESSMAKER GARMENT FITTER HEMOGLOBIN AND HEMATOCRIT Routine 04/28/2025 12:09 AM DRESSMAKER GARMENT FITTER TROPONIN 2 HR, 5TH GEN Timed Study 8:25 PM DRESSMAKER GARMENT FITTER TROPONIN BASELINE, 5TH GEN Stat 04/27/2025 6:16 PM DRESSMAKER GARMENT FITTER HEMOGLOBIN AND HEMATOCRIT Routine 04/27/2025 6:16 PM DRESSMAKER GARMENT FITTER EKG 12-LEAD Stat 04/27/2025 5:53 PM DRESSMAKER GARMENT FITTER HEMOGLOBIN AND HEMATOCRIT Routine 04/27/2025 3:39 PM DRESSMAKER GARMENT FITTER POC GLUCOSE Routine 04/27/2025 9:42 AM DRESSMAKER GARMENT FITTER UNFRACTIONATED HEPARIN ACTIVITY Timed Study 04/27/2025 5:28 AM DRESSMAKER GARMENT FITTER CBC WITH DIFFERENTIAL Routine 04/27/2025 5:28 AM DRESSMAKER GARMENT FITTER MAGNESIUM LEVEL Routine 04/27/2025 5:28 AM DRESSMAKER GARMENT FITTER BASIC METABOLIC PANEL Routine 04/27/2025 5:28 AM DRESSMAKER GARMENT FITTER HEMOGLOBIN AND HEMATOCRIT Routine 04/27/2025 12:23 AM DRESSMAKER GARMENT FITTER UNFRACTIONATED HEPARIN ACTIVITY Timed Study 04/27/2025 12:22 AM DRESSMAKER GARMENT FITTER HEMOGLOBIN AND HEMATOCRIT Routine 04/26/2025 5:58 PM DRESSMAKER GARMENT FITTER UNFRACTIONATED HEPARIN ACTIVITY Timed Study 04/26/2025 5:57 PM DRESSMAKER GARMENT FITTER UNFRACTIONATED HEPARIN ACTIVITY Timed Study 04/26/2025 11:40 AM DRESSMAKER GARMENT FITTER HEMOGLOBIN AND HEMATOCRIT Routine 04/26/2025 11:40 AM DRESSMAKER GARMENT FITTER UNFRACTIONATED HEPARIN ACTIVITY Timed Study 04/26/2025 4:56 AM DRESSMAKER GARMENT FITTER CBC WITH DIFFERENTIAL Routine 04/26/2025 4:56 AM DRESSMAKER GARMENT FITTER MAGNESIUM LEVEL Routine 04/26/2025 4:56 AM DRESSMAKER GARMENT FITTER BASIC METABOLIC PANEL Routine 04/26/2025 4:56 AM DRESSMAKER GARMENT FITTER EKG 12-LEAD Stat 04/26/2025 4:01 AM DRESSMAKER GARMENT FITTER HEMOGLOBIN AND HEMATOCRIT Routine 04/26/2025 12:35 AM DRESSMAKER GARMENT FITTER UNFRACTIONATED HEPARIN ACTIVITY Timed Study 04/25/2025 5:09 PM DRESSMAKER GARMENT FITTER HEMOGLOBIN AND HEMATOCRIT Routine 04/25/2025 5:09 PM DRESSMAKER GARMENT FITTER EKG 12-LEAD Stat 04/25/2025 11:36 AM DRESSMAKER GARMENT FITTER UNFRACTIONATED HEPARIN ACTIVITY Timed Study 04/25/2025 11:11 AM DRESSMAKER GARMENT FITTER HEMOGLOBIN AND HEMATOCRIT Routine 04/25/2025 11:11 AM DRESSMAKER GARMENT FITTER UNFRACTIONATED HEPARIN ACTIVITY Timed Study 04/25/2025 4:40 AM DRESSMAKER GARMENT FITTER CBC WITH DIFFERENTIAL Routine 04/25/2025 4:40 AM DRESSMAKER GARMENT FITTER MAGNESIUM LEVEL Routine 04/25/2025 4:40 AM DRESSMAKER GARMENT FITTER BASIC METABOLIC PANEL Routine 04/25/2025 4:40 AM DRESSMAKER GARMENT FITTER HEMOGLOBIN AND HEMATOCRIT Routine 04/24/2025 4:32 PM DRESSMAKER GARMENT FITTER PT EVAL AND TREAT Pending Discharge 04/24/2025 2:09 PM DRESSMAKER GARMENT FITTER UNFRACTIONATED HEPARIN ACTIVITY Timed Study 04/24/2025 10:35 AM DRESSMAKER GARMENT FITTER EKG 12-LEAD Pending Discharge 04/24/2025 8:53 AM DRESSMAKER GARMENT FITTER HEMOGLOBIN AND HEMATOCRIT Routine 04/24/2025 5:10 AM DRESSMAKER GARMENT FITTER MAGNESIUM LEVEL Routine 04/24/2025 5:10 AM DRESSMAKER GARMENT FITTER BASIC METABOLIC PANEL Routine 04/24/2025 5:10 AM DRESSMAKER GARMENT FITTER UNFRACTIONATED HEPARIN ACTIVITY Timed Study 04/24/2025 2:44 AM DRESSMAKER GARMENT FITTER HEMOGLOBIN AND HEMATOCRIT Routine 04/24/2025 12:39 AM DRESSMAKER GARMENT FITTER HEMOGLOBIN AND HEMATOCRIT Routine 04/23/2025 8:40 PM DRESSMAKER GARMENT FITTER UNFRACTIONATED HEPARIN ACTIVITY Timed Study 04/23/2025 7:42 PM DRESSMAKER GARMENT FITTER UNFRACTIONATED HEPARIN ACTIVITY Timed Study 04/23/2025 1:24 PM DRESSMAKER GARMENT FITTER HEMOGLOBIN AND HEMATOCRIT Routine 04/23/2025 1:24 PM DRESSMAKER GARMENT FITTER ECHO TRANSESOPHAGEAL WITH CARDIOVERSION Routine 04/23/2025 10:00 AM DRESSMAKER GARMENT FITTER UNFRACTIONATED HEPARIN ACTIVITY Timed Study 04/23/2025 6:11 AM DRESSMAKER GARMENT FITTER HEMOGLOBIN AND HEMATOCRIT Routine 04/23/2025 6:11 AM DRESSMAKER GARMENT FITTER CBC WITH DIFFERENTIAL Routine 04/23/2025 3:12 AM DRESSMAKER GARMENT FITTER MAGNESIUM LEVEL Routine 04/23/2025 3:12 AM DRESSMAKER GARMENT FITTER BASIC METABOLIC PANEL Routine 04/23/2025 3:12 AM DRESSMAKER GARMENT FITTER UNFRACTIONATED HEPARIN ACTIVITY Timed Study 04/22/2025 11:22 PM DRESSMAKER GARMENT FITTER HEMOGLOBIN AND HEMATOCRIT Routine 04/22/2025 11:22 PM DRESSMAKER GARMENT FITTER POC GLUCOSE Routine 04/22/2025 9:52 PM DRESSMAKER GARMENT FITTER HEMOGLOBIN AND HEMATOCRIT Routine 04/22/2025 9:24 PM DRESSMAKER GARMENT FITTER UNFRACTIONATED HEPARIN ACTIVITY Timed Study 04/22/2025 2:30 PM DRESSMAKER GARMENT FITTER HEMOGLOBIN AND HEMATOCRIT Routine 04/22/2025 2:30 PM DRESSMAKER GARMENT FITTER POTASSIUM LEVEL Timed Study 04/22/2025 2:30 PM DRESSMAKER GARMENT FITTER US RENAL Routine 04/22/2025 1:19 PM DRESSMAKER GARMENT FITTER EXTRA TUBE (URINE MELENDEZ) Routine 04/22/2025 1:04 PM DRESSMAKER GARMENT FITTER UREA NITROGEN, RANDOM URINE Routine 04/22/2025 1:04 PM DRESSMAKER GARMENT FITTER SODIUM, RANDOM URINE Routine 04/22/2025 1:04 PM DRESSMAKER GARMENT FITTER PROTEIN , RANDOM URINE Routine 1:04 PM DRESSMAKER GARMENT FITTER URINALYSIS W/REFLEX MICROSCOPIC Routine 04/22/2025 1:04 PM DRESSMAKER GARMENT FITTER ECHOCARDIOGRAM W/ CONTRAST AGENT Routine 04/22/2025 10:37 AM DRESSMAKER GARMENT FITTER CBC WITH DIFFERENTIAL Routine 04/22/2025 4:45 AM DRESSMAKER GARMENT FITTER MAGNESIUM LEVEL Routine 04/22/2025 4:45 AM DRESSMAKER GARMENT FITTER BASIC METABOLIC PANEL Routine 04/22/2025 4:45 AM DRESSMAKER GARMENT FITTER HEMOGLOBIN AND HEMATOCRIT Routine 04/22/2025 12:01 AM DRESSMAKER GARMENT FITTER HEMOGLOBIN AND HEMATOCRIT Routine 04/21/2025 6:13 PM DRESSMAKER GARMENT FITTER HEMOGLOBIN AND HEMATOCRIT Routine 04/21/2025 12:49 PM DRESSMAKER GARMENT FITTER US VENOUS DOPPLER LEG BILATERAL Routine 04/21/2025 12:05 PM DRESSMAKER GARMENT FITTER CBC WITH DIFFERENTIAL Routine 04/21/2025 4:39 AM DRESSMAKER GARMENT FITTER PTH INTACT Routine 04/21/2025 4:39 AM DRESSMAKER GARMENT FITTER MAGNESIUM LEVEL Routine 04/21/2025 4:39 AM DRESSMAKER GARMENT FITTER BASIC METABOLIC PANEL Routine 04/21/2025 4:39 AM DRESSMAKER GARMENT FITTER HEMOGLOBIN AND HEMATOCRIT Routine 04/20/2025 11:21 PM DRESSMAKER GARMENT FITTER HEMOGLOBIN AND HEMATOCRIT Routine 04/20/2025 6:29 PM DRESSMAKER GARMENT FITTER UNFRACTIONATED HEPARIN ACTIVITY Timed Study 04/20/2025 1:58 PM DRESSMAKER GARMENT FITTER IRON, TIBC, AND PERCENT SATURATION Routine 04/20/2025 1:58 PM DRESSMAKER GARMENT FITTER PTT Routine 04/20/2025 1:58 PM DRESSMAKER GARMENT FITTER TROPONIN Routine 04/20/2025 1:58 PM DRESSMAKER GARMENT FITTER FERRITIN Routine 04/20/2025 1:58 PM DRESSMAKER GARMENT FITTER BASIC METABOLIC PANEL Routine 04/20/2025 1:58 PM DRESSMAKER GARMENT FITTER OT EVAL AND TREAT Routine 04/20/2025 11:31 AM DRESSMAKER GARMENT FITTER PT EVAL AND TREAT Routine 04/20/2025 11:31 AM DRESSMAKER GARMENT FITTER OT EVAL AND TREAT Routine 04/20/2025 11:30 AM DRESSMAKER GARMENT FITTER PT EVAL AND TREAT Routine 04/20/2025 11:30 AM DRESSMAKER GARMENT FITTER BLOOD CULTURE Stat 04/20/2025 10:53 AM DRESSMAKER GARMENT FITTER BLOOD CULTURE Stat 04/20/2025 10:53 AM DRESSMAKER GARMENT FITTER HEMOGLOBIN AND HEMATOCRIT Routine 04/20/2025 10:52 AM DRESSMAKER GARMENT FITTER BLOOD CULTURE Routine 04/20/2025 10:33 AM DRESSMAKER GARMENT FITTER BLOOD CULTURE Routine 04/20/2025 10:33 AM DRESSMAKER GARMENT FITTER TROPONIN 6 HR, 5TH GEN Timed Study 7:09 AM DRESSMAKER GARMENT FITTER VITAMIN D 25 HYDROXY Routine 04/20/2025 7:09 AM DRESSMAKER GARMENT FITTER LACTIC ACID Stat 04/20/2025 2:39 AM DRESSMAKER GARMENT FITTER EKG 12-LEAD Routine 04/20/2025 2:30 AM DRESSMAKER GARMENT FITTER TROPONIN BASELINE, 5TH GEN Stat 04/20/2025 2:29 AM DRESSMAKER GARMENT FITTER CBC WITH DIFFERENTIAL Routine 04/20/2025 2:29 AM DRESSMAKER GARMENT FITTER TSH Routine 04/20/2025 2:29 AM DRESSMAKER GARMENT FITTER T4 FREE Routine 04/20/2025 2:29 AM DRESSMAKER GARMENT FITTER MAGNESIUM LEVEL Routine 04/20/2025 2:29 AM DRESSMAKER GARMENT FITTER COMPREHENSIVE METABOLIC PANEL Routine 04/20/2025 2:29 AM DRESSMAKER GARMENT FITTER documented in this encounter Results * TELEMETRY REPORT (04/30/2025 2:09 AM DRESSMAKER GARMENT FITTER) us Provider Scanning ECG ORDERABLES Final Result * (ABNORMAL) HEMOGLOBIN AND HEMATOCRIT (04/29/2025 11:43 AM DRESSMAKER GARMENT FITTER) [facility] HEMOGLOBIN 9.2(L) 14.0 - 18.0 g/dL 04/29/2025 11:57 AM DRESSMAKER GARMENT FITTER [facility] HEMATOCRIT 30.3(L) 41.0 - 53.0 % 04/29/2025 11:57 AM DRESSMAKER GARMENT FITTER [facility] Blood Venipuncture / Unknown 04/29/2025 11:43 AM DRESSMAKER GARMENT FITTER 04/29/2025 11:52 AM DRESSMAKER GARMENT FITTER Rishabh Reed MD HEMATOLOGY ORDERABLES Cristy l Result Performing Organization Address [facility] Co de Phone Number [facility] CLIA # [id number] [id number] [place] [address] * (ABNORMAL) PTT (04/29/2025 4:34 AM DRESSMAKER GARMENT FITTER) PTT 39.3(H) 24.8 - 37.2 seconds 04/29/2025 6:04 AM DRESSMAKER GARMENT FITTER [facility] Blood Venipuncture / Unknown 04/29/2025 4:34 AM DRESSMAKER GARMENT FITTER 04/29/2025 5:41 AM DRESSMAKER GARMENT FITTER Narrative [facility] - 04/29/2025 6:04 AM DRESSMAKER GARMENT FITTER Therapeutic Range: Hi-level PE/DVT heparin protocol 80.1 - 95.0 sec Lo-level PE/DVT heparin protocol 70.1 - 85.0 sec Cardiac Heparin Protocol 70.1 - 100.0 sec Carlos Zendejas MD HEMATOLOGY ORDERABLES Fi nal Result Performing Organization Address [facility] Co de Phone Number [facility] CLIA # [id number] [address] [address] * MAGNESIUM LEVEL (04/29/2025 4:34 AM DRESSMAKER GARMENT FITTER) MAGNESIUM 2.0 1.6 - 2.4 mg/dL 04/29/2025 6:13 AM DRESSMAKER GARMENT FITTER [facility] Blood Venipuncture / Unknown 04/29/2025 4:34 AM DRESSMAKER GARMENT FITTER 04/29/2025 5:41 AM DRESSMAKER GARMENT FITTER Rishabh Reed MD CHEMISTRY ORDERABLES Final Result [facility] CLMARCELLA # [id number] [facility] [address] [place] [address] * (ABNORMAL) BASIC METABOLIC PANEL (04/29/2025 4:34 AM DRESSMAKER GARMENT FITTER) SODIUM 132(L) 136 - 145 mmol/L 04/29/2025 6:13 AM [facility] POTASSIUM 3.7 3.5 - 5.1 mmol/L 04/29/2025 6:13 AM [facility] CHLORIDE 97(L) 98 - 107 mmol/L 04/29/2025 6:13 AM [facility] CO2 22 22 - 29 mmol/L 04/29/2025 6:13 AM [facility] CALCIUM 12.1(H) 8.8 - 10.2 mg/dL 04/29/2025 6:13 AM [facility] BUN 44(H) 8 - 23 mg/dL 04/29/2025 6:13 AM [facility] CREATININE 1.47(H) 0.67 - 1.17 mg/dL 04/29/2025 6:13 AM [facility] GLUCOSE 90 74 - 99 mg/dL 04/29/2025 6:13 AM [facility] GFR 52(L) >=60 mL/min/1. 73 sq meter 04/29/2025 6:13 AM [facility] Comment:eGFR calculated with 2020 CKD-EPI equation. Vegetarian diet, extremely high or low muscle mass, and may affect results. Cystatin C with Glomerular Filtration Rate is a suitable alternative for these patients. ANION GAP 13 9 - 20 mmol/L 04/29/2025 6:13 AM [facility] Blood Venipuncture / Unknown 04/29/2025 4:34 AM DRESSMAKER GARMENT FITTER 04/29/2025 5:41 AM DRESSMAKER GARMENT FITTER us Rishabh Reed MD CHEMISTRY ORDERABLES Final Result [facility] CLIA # [id number] [facility] [address] [place] [address] * (ABNORMAL) CBC WITH DIFFERENTIAL (04/29/2025 4:34 AM DRESSMAKER GARMENT FITTER) [facility] WBC 9.3 4.8 - 10.8 K/uL 04/29/2025 5:51 AM [facility] RBC 3.49(L) 4.60 - 6.20 M/uL 04/29/2025 5:51 AM [facility] HEMOGLOBIN 9.1(L) 14.0 - 18.0 g/dL 04/29/2025 5:51 AM [facility] HEMATOCRIT 30.1(L) 41.0 - 53.0 % 04/29/2025 5:51 AM [facility] MCV 86.2 84.0 - 103.0 fL 04/29/2025 5:51 AM [facility] MCH 26.1(L) 27.0 - 34.0 pg 04/29/2025 5:51 AM [facility] MCHC 30.2 30.0 - 35.0 g/dL 04/29/2025 5:51 AM [facility] PLATELETS 213 140 - 440 K/uL 04/29/2025 5:51 AM [facility] MPV 9.7 8.9 - 12.8 fL 04/29/2025 5:51 AM [facility] RDW 19.9(H) 11.0 - 14.5 % 04/29/2025 5:51 AM [facility] RDW-STDEV 60.8(H) 37.0 - 54.0 fL 04/29/2025 5:51 AM [facility] NEUTROPHILS 81(H) 42 - 75 % 04/29/2025 5:51 AM [facility] LYMPHOCYTES 9(L) 24 - 44 % 04/29/2025 5:51 AM [facility] MONOCYTES 6 2 - 10 % 04/29/2025 5:51 AM [facility] EOSINOPHILS 2 0 - 7 % 04/29/2025 5:51 AM [facility] BASOPHILS 0 0 - 1 % 04/29/2025 5:51 AM [facility] IMMATURE GRANULOCYTES 2 0 - 2 % 04/29/2025 5:51 AM [facility] NEUTROPHIL ABSOLUTE 7.50 2.00 - 8.00 K/uL 04/29/2025 5:51 AM [facility] LYMPHOCYTE ABSOLUTE 0.82(L) 1.20 - 4.00 K/uL 04/29/2025 5:51 AM [facility] MONOCYTE ABSOLUTE 0.60 0.10 - 0.60 K/uL 04/29/2025 5:51 AM [facility] EOSINOPHIL ABSOLUTE 0.17 0.00 - 0.70 K/uL 04/29/2025 5:51 AM [facility] BASOPHILS ABSOLUTE 0.04 0.00 - 0.20 K/uL 04/29/2025 5:51 AM [facility] IMMATURE GRANULOCYTES ABSOLUTE 0.18(H) 0.00 - 0.10 K/uL 04/29/2025 5:51 AM [facility] SMEAR REVIEWED: NA - Not Applicable 04/29/2025 5:51 AM [facility] Blood Venipuncture / Unknown 04/29/2025 4:34 AM DRESSMAKER GARMENT FITTER 04/29/2025 5:42 AM DRESSMAKER GARMENT FITTER us Rishabh Reed MD HEMATOLOGY ORDERABLES Cristy l Result [facility] CLIA # [id number] [address] [address] [place] [address] * UNFRACTIONATED HEPARIN MONITORING (04/29/2025 4:34 AM DRESSMAKER GARMENT FITTER) [facility] ANTI-XA UNFRAC HEP 04/29/2025 5:58 AM DRESSMAKER GARMENT FITTER [facility] Comment:Patient receiving an ti-coagulation therapy (eliquis/apixaban), test invalid. Redraw test after anti-coagulation therapy discontinued (5 days) if test is still indicated. This test has not been charged. Blood Venipuncture / Unknown 04/29/2025 4:34 AM DRESSMAKER GARMENT FITTER 04/29/2025 5:41 AM DRESSMAKER GARMENT FITTER Carlos Zendejas MD HEMATOLOGY ORDERABLES Fi nal Result Performing Organization Address [facility] Co de Phone Number [facility] CLIA # [id number] [address] [address] * (ABNORMAL) HEMOGLOBIN AND HEMATOCRIT (04/28/2025 8:43 PM DRESSMAKER GARMENT FITTER) Pathologist [facility] HEMOGLOBIN 9.2(L) 14.0 - 18.0 g/dL 04/28/2025 9:18 PM DRESSMAKER GARMENT FITTER [facility] HEMATOCRIT 29.5(L) 41.0 - 53.0 % 04/28/2025 9:18 PM DRESSMAKER GARMENT FITTER [facility] Blood Venipuncture / Unknown 04/28/2025 8:43 PM DRESSMAKER GARMENT FITTER 04/28/2025 9:13 PM DRESSMAKER GARMENT FITTER Rishabh Reed MD HEMATOLOGY ORDERABLES Cristy l Result [facility] CLIA # [id number] [address] [address] [place] [address] * (ABNORMAL) HEMOGLOBIN AND HEMATOCRIT (04/28/2025 1:21 PM DRESSMAKER GARMENT FITTER) [facility] HEMOGLOBIN 8.7(L) 14.0 - 18.0 g/dL 04/28/2025 1:34 PM DRESSMAKER GARMENT FITTER [facility] HEMATOCRIT 28.2(L) 41.0 - 53.0 % 04/28/2025 1:34 PM DRESSMAKER GARMENT FITTER [facility] Blood Venipuncture / Unknown 04/28/2025 1:21 PM DRESSMAKER GARMENT FITTER 04/28/2025 1:30 PM DRESSMAKER GARMENT FITTER Rishabh Reed MD HEMATOLOGY ORDERABLES Cristy l Result Performing Organization Address [facility] Co de Phone Number [facility] CLIA # [id number] [address] [address] * (ABNORMAL) MAGNESIUM LEVEL (04/28/2025 4:55 AM DRESSMAKER GARMENT FITTER) Pathologist [facility] MAGNESIUM 1.5(L) 1.6 - 2.4 mg/dL 04/28/2025 5:36 AM DRESSMAKER GARMENT FITTER [facility] Blood Venipuncture / Unknown 04/28/2025 4:55 AM DRESSMAKER GARMENT FITTER 04/28/2025 4:59 AM DRESSMAKER GARMENT FITTER Rishabh Reed MD CHEMISTRY ORDERABLES Final Result Performing Organization Address [facility] de Phone Number [facility] CLIA # [id number] [address] [address] * (ABNORMAL) BASIC METABOLIC PANEL (04/28/2025 4:55 AM DRESSMAKER GARMENT FITTER) SODIUM 132(L) 136 - 145 mmol/L 04/28/2025 5:36 AM [facility] POTASSIUM 4.1 3.5 - 5.1 mmol/L 04/28/2025 5:36 AM [facility] CHLORIDE 96(L) 98 - 107 mmol/L 04/28/2025 5:36 AM [facility] CO2 20(L) 22 - 29 mmol/L 04/28/2025 5:36 AM [facility] CALCIUM 10.8(H) 8.8 - 10.2 mg/dL 04/28/2025 5:36 AM [facility] BUN 42(H) 8 - 23 mg/dL 04/28/2025 5:36 AM [facility] CREATININE 1.39(H) 0.67 - 1.17 mg/dL 04/28/2025 5:36 AM [facility] GLUCOSE 94 74 - 99 mg/dL 04/28/2025 5:36 AM [facility] GFR 55(L) >=60 mL/min/1. 73 sq meter 04/28/2025 5:36 AM [facility] Comment:eGFR calculated with 2020 CKD-EPI equation. Vegetarian diet, extremely high or low muscle mass, and may affect results. Cystatin C with Glomerular Filtration Rate is a suitable alternative for these patients. ANION GAP 16 9 - 20 mmol/L 04/28/2025 5:36 AM [facility] Blood Venipuncture / Unknown 04/28/2025 4:55 AM DRESSMAKER GARMENT FITTER 04/28/2025 4:59 AM DRESSMAKER GARMENT FITTER us Rishabh Reed MD CHEMISTRY ORDERABLES Final Result [facility] CLIA # [id number] [address] [place] [id number] * (ABNORMAL) CBC WITH DIFFERENTIAL (04/28/2025 4:55 AM DRESSMAKER GARMENT FITTER) Pathologist [facility] WBC 9.0 4.8 - 10.8 K/uL 04/28/2025 5:08 AM [facility] RBC 3.08(L) 4.60 - 6.20 M/uL 04/28/2025 5:08 AM [facility] HEMOGLOBIN 8.3(L) 14.0 - 18.0 g/dL 04/28/2025 5:08 AM [facility] HEMATOCRIT 27.1(L) 41.0 - 53.0 % 04/28/2025 5:08 AM [facility] MCV 88.0 84.0 - 103.0 fL 04/28/2025 5:08 AM [facility] MCH 26.9(L) 27.0 - 34.0 pg 04/28/2025 5:08 AM [facility] MCHC 30.6 30.0 - 35.0 g/dL 04/28/2025 5:08 AM [facility] PLATELETS 186 140 - 440 K/uL 04/28/2025 5:08 AM [facility] MPV 9.5 8.9 - 12.8 fL 04/28/2025 5:08 AM [facility] RDW 19.2(H) 11.0 - 14.5 % 04/28/2025 5:08 AM [facility] RDW-STDEV 61.2(H) 37.0 - 54.0 fL 04/28/2025 5:08 AM [facility] NEUTROPHILS 87(H) 42 - 75 % 04/28/2025 5:08 AM [facility] LYMPHOCYTES 7(L) 24 - 44 % 04/28/2025 5:08 AM [facility] MONOCYTES 4 2 - 10 % 04/28/2025 5:08 AM [facility] EOSINOPHILS 0 0 - 7 % 04/28/2025 5:08 AM [facility] BASOPHILS 0 0 - 1 % 04/28/2025 5:08 AM [facility] IMMATURE GRANULOCYTES 2 0 - 2 % 04/28/2025 5:08 AM [facility] NEUTROPHIL ABSOLUTE 7.76 2.00 - 8.00 K/uL 04/28/2025 5:08 AM [facility] LYMPHOCYTE ABSOLUTE 0.65(L) 1.20 - 4.00 K/uL 04/28/2025 5:08 AM [facility] MONOCYTE ABSOLUTE 0.38 0.10 - 0.60 K/uL 04/28/2025 5:08 AM [facility] EOSINOPHIL ABSOLUTE 0.01 0.00 - 0.70 K/uL 04/28/2025 5:08 AM [facility] BASOPHILS ABSOLUTE 0.02 0.00 - 0.20 K/uL 04/28/2025 5:08 AM [facility] IMMATURE GRANULOCYTES ABSOLUTE 0.16(H) 0.00 - 0.10 K/uL 04/28/2025 5:08 AM [facility] SMEAR REVIEWED: NN - No Action Needed 04/28/2025 5:08 AM [facility] Blood Venipuncture / Unknown 04/28/2025 4:55 AM DRESSMAKER GARMENT FITTER 04/28/2025 4:59 AM DRESSMAKER GARMENT FITTER Rishabh Reed MD HEMATOLOGY ORDERABLES Cristy l Result Performing Organization Address [facility] de Phone Number [facility] CLIA # [id number] [address] [place] [address] * UNFRACTIONATED HEPARIN MONITORING (04/28/2025 4:55 AM DRESSMAKER GARMENT FITTER) [facility] Signature ANTI-XA UNFRAC HEP 0.42 See Interpretation IU/mL 04/28/2025 5:12 AM [facility] Blood Venipuncture / Unknown 04/28/2025 4:55 AM DRESSMAKER GARMENT FITTER 04/28/2025 4:59 AM DRESSMAKER GARMENT FITTER Narrative [facility] - 04/28/2025 5:12 AM DRESSMAKER GARMENT FITTER Therapeutic Range: PT/DVT Heparin Protocol 0.3 - 0.7 IU/ml Cardiac Heparin Protocol 0.3 - 0.6 IU/ml The reference range for this test is specific to the anticoagulant and is not appropriate for monitoring patients on a DOAC protocol. Rishabh Reed MD HEMATOLOGY ORDERABLES Cristy l Result Performing Organization Address [facility] Co de Phone Number [facility] CLIA # [id number] [id number] [place] [address] * (ABNORMAL) HEMOGLOBIN AND HEMATOCRIT (04/28/2025 12:09 AM DRESSMAKER GARMENT FITTER) HEMOGLOBIN 8.2(L) 14.0 - 18.0 g/dL 04/28/2025 12:19 AM [facility] HEMATOCRIT 27.1(L) 41.0 - 53.0 % 04/28/2025 12:19 AM [facility] Blood Venipuncture / Unknown 04/28/2025 12:09 AM DRESSMAKER GARMENT FITTER 04/28/2025 12:13 AM DRESSMAKER GARMENT FITTER Rishabh Reed MD HEMATOLOGY ORDERABLES Cristy l Result Performing Organization Address [facility] Co de Phone Number [facility] CLIA # [id number] [address] [address] * (ABNORMAL) TROPONIN 6 HR, 5TH GEN (04/28/2025 12:09 AM DRESSMAKER GARMENT FITTER) TROPONIN T, 6 HR 5TH GEN 74(H) <=15 ng/L 04/28/2025 12:49 AM DRESSMAKER GARMENT FITTER [facility] DELTA 6HR TROPONIN T 2 See Interp. 04/28/2025 12:49 AM [facility] Blood Venipuncture / Unknown 04/28/2025 12:09 AM DRESSMAKER GARMENT FITTER 04/28/2025 12:17 AM DRESSMAKER GARMENT FITTER Narrative [facility] - 04/28/2025 12:49 AM DRESSMAKER GARMENT FITTER Troponin elevated. Delta indeterminate. Carlos Zendejas MD CHEMISTRY ORDERABLES Fin al Result Performing Organization Address [facility] Co de Phone Number [facility] CLIA # [id number] [id number] [place] [address] * (ABNORMAL) TROPONIN 2 HR, 5TH GEN (04/27/2025 8:25 PM DRESSMAKER GARMENT FITTER) TROPONIN T, 2 HR 5TH GEN 74(H) <=15 ng/L 04/27/2025 9:10 PM DRESSMAKER GARMENT FITTER [facility] DELTA 2HR TROPONIN T 2 See Interp. 04/27/2025 9:10 PM DRESSMAKER GARMENT FITTER [facility] Blood Venipuncture / Unknown 04/27/2025 8:25 PM DRESSMAKER GARMENT FITTER 04/27/2025 8:38 PM DRESSMAKER GARMENT FITTER [facility] - 04/27/2025 9:10 PM DRESSMAKER GARMENT FITTER Troponin elevated. Delta not changing. Carlos Zendejas MD CHEMISTRY ORDERABLES Fin al Result Performing Organization Address [facility] Co de Phone Number [facility] CLIA # [id number] [address] [address] [place] [address] * (ABNORMAL) TROPONIN BASELINE, 5TH GEN (04/27/2025 6:16 PM DRESSMAKER GARMENT FITTER) Pathologist [facility] TROPONIN T, BASELINE 5TH GEN 72(H) <=15 ng/L 04/27/2025 7:19 PM DRESSMAKER GARMENT FITTER [facility] Blood Venipuncture / Unknown 04/27/2025 6:16 PM DRESSMAKER GARMENT FITTER 04/27/2025 6:37 PM DRESSMAKER GARMENT FITTER [facility] - 04/27/2025 7:19 PM DRESSMAKER GARMENT FITTER Troponin elevated. Carlos Zendejas MD CHEMISTRY ORDERABLES Fin al Result Performing Organization Address City/[facility]/ZIP Co de Phone Number [facility] CLIA # [id number] [address] [address] [place] [address] * (ABNORMAL) HEMOGLOBIN AND HEMATOCRIT (04/27/2025 6:16 PM DRESSMAKER GARMENT FITTER) [facility] HEMOGLOBIN 8.8(L) 14.0 - 18.0 g/dL 04/27/2025 6:48 PM DRESSMAKER GARMENT FITTER [facility] HEMATOCRIT 28.9(L) 41.0 - 53.0 % 04/27/2025 6:48 PM DRESSMAKER GARMENT FITTER [facility] Blood Venipuncture / Unknown 04/27/2025 6:16 PM DRESSMAKER GARMENT FITTER 04/27/2025 6:37 PM DRESSMAKER GARMENT FITTER us Rishabh Reed MD HEMATOLOGY ORDERABLES Cristy l Result [facility] CLIA # [id number] [address] [place] [address] * EKG 12-LEAD (04/27/2025 5:53 PM DRESSMAKER GARMENT FITTER) 04/27/2025 5:53 PM DRESSMAKER GARMENT FITTER Narrative INTERFACE SYSTEM - 04/28/2025 1:34 PM DRESSMAKER GARMENT FITTER [address] [address] Test Date: 2025-04-27 Pat Name: KRISTOPHER LEBLANC Department: 12 Room: [address] [place] [address] Gender: Male Team Guide: [id number] : 1958-02-28 Requested By: Order Number: [id number] Hamzah GILLESPIE: Tara Jiang Measurements Intervals Sterling Rate: 94 P: 0 RI: 0 QRS: 81 QRSD: 180 T: 90 QT: 448 QTc: 560 Interpretive Statements Atrial fibrillation LBBB Abnormal ECG Electronically Signed On 04-28-2025 13:34:37 DRESSMAKER GARMENT FITTER by Tara Jiang Procedure Note Provider, Historical - 04/28/[address] [address] Test Date: 2025-04-27 Pat Name: KRISTOPHER LEBLANC Department: 12 Room: [address] [place] [address] Gender: Male Team Guide: [id number] : 1958-02-28 Requested By: Order Number: [id number] Reading MD: Tara Jiang Measurements Intervals Sterling Rate: 94 P: 0 RI: 0 QRS: 81 QRSD: 180 T: 90 QT: 448 QTc: 560 Interpretive Statements Atrial fibrillation LBBB Abnormal ECG Electronically Signed On 04-28-2025 13:34:37 DRESSMAKER GARMENT FITTER by Tara Jiang Carlos Zendejas MD ECG ORDERABLES Final Re sult Performing Organization Address City/[facility]/ZIP Co de Phone Number INTERFACE SYSTEM Refer to clinic/hospital department * (ABNORMAL) HEMOGLOBIN AND HEMATOCRIT (04/27/2025 3:39 PM DRESSMAKER GARMENT FITTER) Pathologist [facility] HEMOGLOBIN 9.2(L) 14.0 - 18.0 g/dL 04/27/2025 3:46 PM DRESSMAKER GARMENT FITTER [facility] HEMATOCRIT 30.8(L) 41.0 - 53.0 % 04/27/2025 3:46 PM DRESSMAKER GARMENT FITTER [facility] Blood Venipuncture / Unknown 04/27/2025 3:39 PM DRESSMAKER GARMENT FITTER 04/27/2025 3:43 PM DRESSMAKER GARMENT FITTER Rishabh Reed MD HEMATOLOGY ORDERABLES Cristy l Result Performing Organization Address [facility] de Phone Number [facility] CLIA # [id number] [address] [place] [address] [place] [address] * POC GLUCOSE (04/27/2025 9:42 AM DRESSMAKER GARMENT FITTER) GLUCOSE POC 78 74 - 99 mg/dL 04/27/2025 9:42 AM DRESSMAKER GARMENT FITTER [facility] SPECIMEN SOURCE, GLUCOSE POC Capillary 04/27/2025 9:42 AM DRESSMAKER GARMENT FITTER [facility] Blood, whole 04/27/2025 9:42 AM DRESSMAKER GARMENT FITTER 04/27/2025 9:49 AM DRESSMAKER GARMENT FITTER Carlos Zendejas MD POINT OF CARE TESTING Fi nal Result Performing Organization Address City/[facility]/ZIP Co de Phone Number [facility] CLIA # [id number] [address] [place], [place] [address] * UNFRACTIONATED HEPARIN MONITORING (04/27/2025 5:28 AM DRESSMAKER GARMENT FITTER) [facility] ANTI-XA UNFRAC HEP 0.40 See Interpretation IU/mL 04/27/2025 5:54 AM DRESSMAKER GARMENT FITTER [facility] Blood Venipuncture / Unknown 04/27/2025 5:28 AM DRESSMAKER GARMENT FITTER 04/27/2025 5:35 AM DRESSMAKER GARMENT FITTER Narrative [facility] - 04/27/2025 5:54 AM DRESSMAKER GARMENT FITTER Therapeutic Range: PT/DVT Heparin Protocol 0.3 - 0.7 IU/ml Cardiac Heparin Protocol 0.3 - 0.6 IU/ml The reference range for this test is specific to the anticoagulant and is not appropriate for monitoring patients on a DOAC protocol. Carlos Zendejas MD HEMATOLOGY ORDERABLES Fi nal Result Performing Organization Address [facility]/ZIP Co de Phone Number [facility] CLIA # [id number] [address] [place] [address] * MAGNESIUM LEVEL (04/27/2025 5:28 AM DRESSMAKER GARMENT FITTER) [facility] MAGNESIUM 1.6 1.6 - 2.4 mg/dL 04/27/2025 6:14 AM DRESSMAKER GARMENT FITTER [facility] Blood Venipuncture / Unknown 04/27/2025 5:28 AM DRESSMAKER GARMENT FITTER 04/27/2025 5:36 AM DRESSMAKER GARMENT FITTER Rishabh Reed MD CHEMISTRY ORDERABLES Final Result Performing Organization Address [facility]/ZIP Co de Phone Number [facility] CLIA # [id number] [address] [place] [address] * (ABNORMAL) BASIC METABOLIC PANEL (04/27/2025 5:28 AM DRESSMAKER GARMENT FITTER) SODIUM 137 136 - 145 mmol/L 04/27/2025 6:14 AM [facility] POTASSIUM 4.1 3.5 - 5.1 mmol/L 04/27/2025 6:14 AM [facility] CHLORIDE 101 98 - 107 mmol/L 04/27/2025 6:14 AM [facility] CO2 20(L) 22 - 29 mmol/L 04/27/2025 6:14 AM [facility] CALCIUM 11.0(H) 8.8 - 10.2 mg/dL 04/27/2025 6:14 AM [facility] BUN 45(H) 8 - 23 mg/dL 04/27/2025 6:14 AM [facility] CREATININE 1.48(H) 0.67 - 1.17 mg/dL 04/27/2025 6:14 AM [facility] GLUCOSE 75 74 - 99 mg/dL 04/27/2025 6:14 AM [facility] GFR 51(L) >=60 mL/min/1. 73 sq meter 04/27/2025 6:14 AM [facility] Comment:eGFR calculated with 2020 CKD-EPI equation. Vegetarian diet, extremely high or low muscle mass, and may affect results. Cystatin C with Glomerular Filtration Rate is a suitable alternative for these patients. ANION GAP 16 9 - 20 mmol/L 04/27/2025 6:14 AM [facility] Blood Venipuncture / Unknown 04/27/2025 5:28 AM DRESSMAKER GARMENT FITTER 04/27/2025 5:36 AM DRESSMAKER GARMENT FITTER us Rishabh Reed MD CHEMISTRY ORDERABLES Final Result [facility] CLIA # [id number] [address] [address] [place] [address] * (ABNORMAL) CBC WITH DIFFERENTIAL (04/27/2025 5:28 AM DRESSMAKER GARMENT FITTER) [facility] WBC 6.8 4.8 - 10.8 K/uL 04/27/2025 5:42 AM [facility] RBC 3.15(L) 4.60 - 6.20 M/uL 04/27/2025 5:42 AM [facility] HEMOGLOBIN 8.2(L) 14.0 - 18.0 g/dL 04/27/2025 5:42 AM [facility] HEMATOCRIT 27.5(L) 41.0 - 53.0 % 04/27/2025 5:42 AM [facility] MCV 87.3 84.0 - 103.0 fL 04/27/2025 5:42 AM [facility] MCH 26.0(L) 27.0 - 34.0 pg 04/27/2025 5:42 AM [facility] MCHC 29.8(L) 30.0 - 35.0 g/dL 04/27/2025 5:42 AM [facility] PLATELETS 195 140 - 440 K/uL 04/27/2025 5:42 AM [facility] MPV 9.7 8.9 - 12.8 fL 04/27/2025 5:42 AM [facility] RDW 19.6(H) 11.0 - 14.5 % 04/27/2025 5:42 AM [facility] RDW-STDEV 62.0(H) 37.0 - 54.0 fL 04/27/2025 5:42 AM [facility] NEUTROPHILS 76(H) 42 - 75 % 04/27/2025 5:42 AM [facility] LYMPHOCYTES 13(L) 24 - 44 % 04/27/2025 5:42 AM [facility] MONOCYTES 5 2 - 10 % 04/27/2025 5:42 AM [facility] EOSINOPHILS 4 0 - 7 % 04/27/2025 5:42 AM [facility] BASOPHILS 0 0 - 1 % 04/27/2025 5:42 AM [facility] IMMATURE GRANULOCYTES 2 0 - 2 % 04/27/2025 5:42 AM [facility] NEUTROPHIL ABSOLUTE 5.20 2.00 - 8.00 K/uL 04/27/2025 5:42 AM [facility] LYMPHOCYTE ABSOLUTE 0.88(L) 1.20 - 4.00 K/uL 04/27/2025 5:42 AM [facility] MONOCYTE ABSOLUTE 0.35 0.10 - 0.60 K/uL 04/27/2025 5:42 AM [facility] EOSINOPHIL ABSOLUTE 0.24 0.00 - 0.70 K/uL 04/27/2025 5:42 AM [facility] BASOPHILS ABSOLUTE 0.03 0.00 - 0.20 K/uL 04/27/2025 5:42 AM [facility] IMMATURE GRANULOCYTES ABSOLUTE 0.13(H) 0.00 - 0.10 K/uL 04/27/2025 5:42 AM [facility] SMEAR REVIEWED: NA - Not Applicable 04/27/2025 5:42 AM [facility] Blood Venipuncture / Unknown 04/27/2025 5:28 AM DRESSMAKER GARMENT FITTER 04/27/2025 5:35 AM DRESSMAKER GARMENT FITTER us Rishabh Reed MD HEMATOLOGY ORDERABLES Cristy l Result [facility] CLIA # [id number] [address] [place] [address] * (ABNORMAL) HEMOGLOBIN AND HEMATOCRIT (04/27/2025 12:23 AM DRESSMAKER GARMENT FITTER) [facility] HEMOGLOBIN 8.3(L) 14.0 - 18.0 g/dL 04/27/2025 12:30 AM [facility] HEMATOCRIT 26.9(L) 41.0 - 53.0 % 04/27/2025 12:30 AM [facility] Blood Venipuncture / Unknown 04/27/2025 12:23 AM DRESSMAKER GARMENT FITTER 04/27/2025 12:27 AM DRESSMAKER GARMENT FITTER Rishabh Reed MD HEMATOLOGY ORDERABLES Cristy l Result Performing Organization Address [facility] Co de Phone Number [facility] CLIA # [id number] [address] [id number] * UNFRACTIONATED HEPARIN MONITORING (04/27/2025 12:22 AM DRESSMAKER GARMENT FITTER) ANTI-XA UNFRAC HEP 0.49 See Interpretation IU/mL 04/27/2025 12:41 AM DRESSMAKER GARMENT FITTER [facility] Blood Venipuncture / Unknown 04/27/2025 12:22 AM DRESSMAKER GARMENT FITTER 04/27/2025 12:27 AM DRESSMAKER GARMENT FITTER Narrative [facility] - 04/27/2025 12:41 AM DRESSMAKER GARMENT FITTER Therapeutic Range: PT/DVT Heparin Protocol 0.3 - 0.7 IU/ml Cardiac Heparin Protocol 0.3 - 0.6 IU/ml The reference range for this test is specific to the anticoagulant and is not appropriate for monitoring patients on a DOAC protocol. Carlos Zendejas MD HEMATOLOGY ORDERABLES Fi nal Result Performing Organization Address [facility] Co de Phone Number [facility] CLIA # [id number] [address] [id number] * (ABNORMAL) HEMOGLOBIN AND HEMATOCRIT (04/26/2025 5:58 PM DRESSMAKER GARMENT FITTER) HEMOGLOBIN 8.7(L) 14.0 - 18.0 g/dL 04/26/2025 6:11 PM DRESSMAKER GARMENT FITTER [facility] HEMATOCRIT 28.6(L) 41.0 - 53.0 % 04/26/2025 6:11 PM DRESSMAKER GARMENT FITTER [facility] Blood Venipuncture / Unknown 04/26/2025 5:58 PM DRESSMAKER GARMENT FITTER 04/26/2025 6:07 PM DRESSMAKER GARMENT FITTER Rishabh Reed MD HEMATOLOGY ORDERABLES Cristy l Result Performing Organization Address [facility] Co de Phone Number [facility] CLIA # [id number] [address] [address] [place], [place] [id number] * UNFRACTIONATED HEPARIN MONITORING (04/26/2025 5:57 PM DRESSMAKER GARMENT FITTER) ANTI-XA UNFRAC HEP 0.18 See Interpretation IU/mL 04/26/2025 6:21 PM DRESSMAKER GARMENT FITTER [facility] Blood Venipuncture / Unknown 04/26/2025 5:57 PM DRESSMAKER GARMENT FITTER 04/26/2025 6:06 PM DRESSMAKER GARMENT FITTER Narrative [facility] - 04/26/2025 6:21 PM DRESSMAKER GARMENT FITTER Therapeutic Range: PT/DVT Heparin Protocol 0.3 - 0.7 IU/ml Cardiac Heparin Protocol 0.3 - 0.6 IU/ml The reference range for this test is specific to the anticoagulant and is not appropriate for monitoring patients on a DOAC protocol. Carlos Zendejas MD HEMATOLOGY ORDERABLES Fi nal Result Performing Organization Address [facility] Co de Phone Number [facility] CLIA # [id number] [address] [address] [place], [place] [address] * UNFRACTIONATED HEPARIN MONITORING (04/26/2025 11:40 AM DRESSMAKER GARMENT FITTER) ANTI-XA UNFRAC HEP 0.35 See Interpretation IU/mL 04/26/2025 12:10 PM DRESSMAK[employer] [facility] Blood Venipuncture / Unknown 04/26/2025 11:40 AM [employer]MENT [employer] 04/26/2025 11:50 AM [employer]ESS[employer]KER G[employer]MENT [employer]TER Narrative [facility] - 04/26/2025 12:10 PM [employer]MENT [employer]TER Therapeutic Range: PT/DVT Heparin Protocol 0.3 - 0.7 IU/ml Cardiac Heparin Protocol 0.3 - 0.6 IU/ml The reference range for this test is specific to the anticoagulant and is not appropriate for monitoring patients on a DOAC protocol. Komal Crandall MD HEMATOLOGY ORDERABLES Final Resu lt Performing Organization Address [facility] Co de Phone Number [facility] CLIA # [id number] [id number] [place], [place] [address] * (ABNORMAL) HEMOGLOBIN AND HEMATOCRIT (04/26/2025 11:40 AM DRESS[employer]KER [employer]MENT [employer]TER) HEMOGLOBIN 8.3(L) 14.0 - 18.0 g/dL 04/26/2025 11:58 AM [employer]MENT [employer] [facility] HEMATOCRIT 27.9(L) 41.0 - 53.0 % 04/26/2025 11:58 AM [employer] [facility] Blood Venipuncture / Unknown 04/26/2025 11:40 AM [employer]ESS[employer]KER [employer]MENT [employer]TER 04/26/2025 11:50 AM [employer]MENT [employer]TER Rishabh Reed MD HEMATOLOGY ORDERABLES Cristy l Result Performing Organization Address [facility] de Phone Number [facility] CLIA # [id number] [address] [id number] * MAGNESIUM LEVEL (04/26/2025 4:56 AM DRESSMAKER G[employer]MENT [employer]TER) MAGNESIUM 1.7 1.6 - 2.4 mg/dL 04/26/2025 5:47 AM [employer] [facility] Blood Venipuncture / Unknown 04/26/2025 4:56 AM [employer]KER [employer]MENT [employer]TER 04/26/2025 5:02 AM [employer]MENT [employer]TER Rishabh Reed MD CHEMISTRY ORDERABLES Final Result Performing Organization Address [facility] Co de Phone Number [facility] CLIA # [id number] [address] [facility] [place] [address] * (ABNORMAL) BASIC METABOLIC PANEL (04/26/2025 4:56 AM DRESSMAKER G[employer]MENT [employer]TER) SODIUM 138 136 - 145 mmol/L 04/26/2025 5:47 AM [facility] POTASSIUM 4.1 3.5 - 5.1 mmol/L 04/26/2025 5:47 AM [facility] CHLORIDE 102 98 - 107 mmol/L 04/26/2025 5:47 AM [facility] CO2 19(L) 22 - 29 mmol/L 04/26/2025 5:47 AM [facility] CALCIUM 10.8(H) 8.8 - 10.2 mg/dL 04/26/2025 5:47 AM [facility] BUN 56(H) 8 - 23 mg/dL 04/26/2025 5:47 AM [facility] CREATININE 1.76(H) 0.67 - 1.17 mg/dL 04/26/2025 5:47 AM [facility] GLUCOSE 79 74 - 99 mg/dL 04/26/2025 5:47 AM [facility] GFR 42(L) >=60 mL/min/1. 73 sq meter 04/26/2025 5:47 AM [facility] Comment:eGFR calculated with 2020 CKD-EPI equation. Vegetarian diet, extremely high or low muscle mass, and may affect results. Cystatin C with Glomerular Filtration Rate is a suitable alternative for these patients. ANION GAP 17 9 - 20 mmol/L 04/26/2025 5:47 AM [facility] [facility] Blood Venipuncture / Unknown 04/26/2025 4:56 AM DRESSMAKER GARMENT FITTER 04/26/2025 5:[address] [facility] Rishabh Reed MD CHEMISTRY ORDERABLES Final Result [facility] CLIA # [id number] [address] [place] [address] [place] [address] * (ABNORMAL) CBC WITH DIFFERENTIAL (04/26/2025 4:56 AM DRESSMAKER GARMENT FITTER) [facility] WBC 6.5 4.8 - 10.8 K/uL 04/26/2025 5:06 AM [facility] RBC 3.19(L) 4.60 - 6.20 M/uL 04/26/2025 5:06 AM [facility] HEMOGLOBIN 8.4(L) 14.0 - 18.0 g/dL 04/26/2025 5:06 AM [facility] HEMATOCRIT 28.0(L) 41.0 - 53.0 % 04/26/2025 5:06 AM [facility] MCV 87.8 84.0 - 103.0 fL 04/26/2025 5:06 AM [facility] MCH 26.3(L) 27.0 - 34.0 pg 04/26/2025 5:06 AM [facility] MCHC 30.0 30.0 - 35.0 g/dL 04/26/2025 5:06 AM [facility] PLATELETS 194 140 - 440 K/uL 04/26/2025 5:06 AM [facility] MPV 9.3 8.9 - 12.8 fL 04/26/2025 5:06 AM [facility] RDW 19.4(H) 11.0 - 14.5 % 04/26/2025 5:06 AM [facility] RDW-STDEV 62.2(H) 37.0 - 54.0 fL 04/26/2025 5:06 AM [facility] NEUTROPHILS 69 42 - 75 % 04/26/2025 5:06 AM [facility] LYMPHOCYTES 17(L) 24 - 44 % 04/26/2025 5:06 AM [facility] MONOCYTES 8 2 - 10 % 04/26/2025 5:06 AM [facility] EOSINOPHILS 3 0 - 7 % 04/26/2025 5:06 AM [facility] BASOPHILS 1 0 - 1 % 04/26/2025 5:06 AM [facility] IMMATURE GRANULOCYTES 2 0 - 2 % 04/26/2025 5:06 AM [facility] NEUTROPHIL ABSOLUTE 4.47 2.00 - 8.00 K/uL 04/26/2025 5:06 AM [facility] LYMPHOCYTE ABSOLUTE 1.12(L) 1.20 - 4.00 K/uL 04/26/2025 5:06 AM [facility] MONOCYTE ABSOLUTE 0.53 0.10 - 0.60 K/uL 04/26/2025 5:06 AM [facility] EOSINOPHIL ABSOLUTE 0.18 0.00 - 0.70 K/uL 04/26/2025 5:06 AM [facility] BASOPHILS ABSOLUTE 0.04 0.00 - 0.20 K/uL 04/26/2025 5:06 AM [facility] IMMATURE GRANULOCYTES ABSOLUTE 0.12(H) 0.00 - 0.10 K/uL 04/26/2025 5:06 AM [facility] SMEAR REVIEWED: NA - Not Applicable 04/26/2025 5:06 AM [facility] Blood Venipuncture / Unknown 04/26/2025 4:56 AM DRESSMAKER GARMENT FITTER 04/26/2025 4:[address] [facility] us Rishabh Reed MD HEMATOLOGY ORDERABLES Cristy l Result [facility] CLIA # [id number] [address] [place] [address] [place] [address] * UNFRACTIONATED HEPARIN MONITORING (04/26/2025 4:56 AM DRESSMAKER GARMENT FITTER) ANTI-XA UNFRAC HEP 0.27 See Interpretation IU/mL 04/26/2025 5:15 AM [facility] Blood Venipuncture / Unknown 04/26/2025 4:56 AM DRESSMAKER GARMENT FITTER 04/26/2025 4:59 AM DRESSMAKER GARMENT FITTER Narrative [facility] - 04/26/2025 5:15 AM DRESSMAKER GARMENT FITTER Therapeutic Range: PT/DVT Heparin Protocol 0.3 - 0.7 IU/ml Cardiac Heparin Protocol 0.3 - 0.6 IU/ml The reference range for this test is specific to the anticoagulant and is not appropriate for monitoring patients on a DOAC protocol. us Komal Crandall MD HEMATOLOGY ORDERABLES Final Resu lt [facility] CLIA # [id number] [address] [address] * EKG 12-LEAD (04/26/2025 4:01 AM DRESSMAKER GARMENT FITTER) 04/26/2025 4:01 AM DRESSMAKER GARMENT FITTER Narrative INTERFACE SYSTEM - 04/26/2025 5:28 AM DRESSMAKER GARMENT FITTER [address] [address] Test Date: 2025-04-26 Pat Name: KRISTOPHER LEBLANC Department: 12 Room: [address] [place] [address] Gender: Male Team Guide: [id number] : 1958-02-28 Requested By: Order Number: [id number] Reading MD: Hermila Chandra Measurements Intervals Sterling Rate: 108 P: 0 RI: 0 QRS: -84 QRSD: 170 T: 90 QT: 338 QTc: 452 Interpretive Statements Atrial fibrillation with rapid ventricular response with premature ventricular or aberrantly conducted complexes Left bundle branch block Abnormal ECG Electronically Signed On 04-26-2025 5:28:56 DRESSMAKER GARMENT FITTER by Hermila Chandra Procedure Note Hermila Chandra MD - 04/26/2025 [address] [place] [address] Test Date: 2025-04-26 Pat Name: KRISTOPHER LEBLANC Department: 12 Room: [address] [place] [address] Gender: Male Team Guide: [id number] : 1958-02-28 Requested By: Order Number: [id number] Hamzah MD: Hermila Chandra Measurements Intervals Sterling Rate: 108 P: 0 RI: 0 QRS: -84 QRSD: 170 T: 90 QT: 338 QTc: 452 Interpretive Statements Atrial fibrillation with rapid ventricular response with premature ventricular or aberrantly conducted complexes Left bundle branch block Abnormal ECG Electronically Signed On 04-26-2025 5:28:56 DRESSMAKER GARMENT FITTER by Hermila Chandra us Komal Crandall MD ECG ORDERABLES Final Result INTERFACE SYSTEM Refer to clinic/hospital department * (ABNORMAL) HEMOGLOBIN AND HEMATOCRIT (04/26/2025 12:35 AM DRESSMAKER GARMENT FITTER) HEMOGLOBIN 8.1(L) 14.0 - 18.0 g/dL 04/26/2025 12:46 AM DRESSMAKER GARMENT FITTER [facility] HEMATOCRIT 25.9(L) 41.0 - 53.0 % 04/26/2025 12:46 AM DRESSMAKER GARMENT FITTER [facility] Blood Venipuncture / Unknown 04/26/2025 12:35 AM DRESSMAKER GARMENT FITTER 04/26/2025 12:42 AM DRESSMAKER GARMENT FITTER us Rishabh Reed MD HEMATOLOGY ORDERABLES Cristy l Result Performing Organization Address City/[facility]/ZIP Co de Phone Number [facility] CLIA # [id number] [address] [place] [address] * (ABNORMAL) HEMOGLOBIN AND HEMATOCRIT (04/25/2025 5:09 PM DRESSMAKER GARMENT FITTER) HEMOGLOBIN 8.4(L) 14.0 - 18.0 g/dL 04/25/2025 5:39 PM DRESSMAKER GARMENT FITTER [facility] HEMATOCRIT 27.8(L) 41.0 - 53.0 % 04/25/2025 5:39 PM DRESSMAKER GARMENT FITTER [facility] Blood Venipuncture / Unknown 04/25/2025 5:09 PM DRESSMAKER GARMENT FITTER 04/25/2025 5:32 PM DRESSMAKER GARMENT FITTER us Rishabh Reed MD HEMATOLOGY ORDERABLES Cristy l Result Performing Organization Address [facility] Co de Phone Number [facility] CLIA # [id number] [address] [facility] [place], [place] [address] * UNFRACTIONATED HEPARIN MONITORING (04/25/2025 5:09 PM DRESSMAKER GARMENT FITTER) [facility] ANTI-XA UNFRAC HEP 0.32 See Interpretation IU/mL 04/25/2025 5:48 PM DRESSMAKER GARMENT FITTER [facility] Blood Venipuncture / Unknown 04/25/2025 5:09 PM DRESSMAKER GARMENT FITTER 04/25/2025 5:31 PM DRESSMAKER GARMENT FITTER Narrative [facility] - 04/25/2025 5:48 PM DRESSMAKER GARMENT FITTER Therapeutic Range: PT/DVT Heparin Protocol 0.3 - 0.7 IU/ml Cardiac Heparin Protocol 0.3 - 0.6 IU/ml The reference range for this test is specific to the anticoagulant and is not appropriate for monitoring patients on a DOAC protocol. us Komal Crandall MD HEMATOLOGY ORDERABLES Final Resu lt Performing Organization Address [facility] Co de Phone Number [facility] CLIA # [id number] [address] [address] * EKG 12-LEAD (04/25/2025 11:36 AM DRESSMAKER GARMENT FITTER) 04/25/2025 11:3 6 AM DRESSMAKER GARMENT FITTER Narrative INTERFACE SYSTEM - 04/25/2025 1:53 PM DRESSMAKER GARMENT FITTER [address] [address] Test Date: 2025-04-25 Pat Name: KRISTOPHER LEBLANC Department: 12 Room: [address] [place] [address] Gender: Male Team Guide: [id number] : 1958-02-28 Requested By: Order Number: [id number] Reading MD: Hermila Chandra Measurements Intervals Sterling Rate: 98 P: 52 RI: 166 QRS: 38 QRSD: 190 T: 163 QT: 326 QTc: 416 Interpretive Statements Atrial fibrillation Left bundle branch block Abnormal ECG Electronically Signed On 04-25-2025 13:53:49 DRESSMAKER GARMENT FITTER by Hermila Chandra Procedure Note Hermila Chandra MD - 04/25/[address] [address] Test Date: 2025-04-25 Pat Name: KRISTOPHER LEBLANC Department: 12 Room: [address] [place] [address] Gender: Male Team Guide: [id number] : 1958-02-28 Requested By: Order Number: [id number] Reading MD: Hermila Chandra Measurements Intervals Sterling Rate: 98 P: 52 RI: 166 QRS: 38 QRSD: 190 T: 163 QT: 326 QTc: 416 Interpretive Statements Atrial fibrillation Left bundle branch block Abnormal ECG Electronically Signed On 04-25-2025 13:53:49 DRESSMAKER GARMENT FITTER by Hermila Chandra us Komal Crandall MD ECG ORDERABLES Final Result Performing Organization Address City/[facility] de Phone Number INTERFACE SYSTEM Refer to clinic/hospital department * (ABNORMAL) HEMOGLOBIN AND HEMATOCRIT (04/25/2025 11:11 AM DRESSMAKER GARMENT FITTER) HEMOGLOBIN 8.4(L) 14.0 - 18.0 g/dL 04/25/2025 11:21 AM DRESSMAKER GARMENT FITTER [facility] HEMATOCRIT 28.1(L) 41.0 - 53.0 % 04/25/2025 11:21 AM DRESSMAKER GARMENT FITTER [facility] Blood Venipuncture / Unknown 04/25/2025 11:11 AM DRESSMAKER GARMENT FITTER 04/25/2025 11:15 AM DRESSMAKER GARMENT FITTER us Rishabh Reed MD HEMATOLOGY ORDERABLES Cristy l Result [facility] CLIA # [id number] [address] [place] [address] * UNFRACTIONATED HEPARIN MONITORING (04/25/2025 11:11 AM DRESSMAKER GARMENT FITTER) [facility] ANTI-XA UNFRAC HEP 0.37 See Interpretation IU/mL 04/25/2025 11:32 AM DRESSMAKER GARMENT FITTER [facility] Blood Venipuncture / Unknown 04/25/2025 11:11 AM DRESSMAKER GARMENT FITTER 04/25/2025 11:15 AM DRESSMAKER GARMENT FITTER Narrative [facility] - 04/25/2025 11:32 AM DRESSMAKER GARMENT FITTER Therapeutic Range: PT/DVT Heparin Protocol 0.3 - 0.7 IU/ml Cardiac Heparin Protocol 0.3 - 0.6 IU/ml The reference range for this test is specific to the anticoagulant and is not appropriate for monitoring patients on a DOAC protocol. us Komal Crandall MD HEMATOLOGY ORDERABLES Final Resu lt Performing Organization Address City/[facility]/ZIP Co de Phone Number [facility] CLIA # [id number] [address] [place] [address] * MAGNESIUM LEVEL (04/25/2025 4:40 AM DRESSMAKER GARMENT FITTER) [facility] MAGNESIUM 1.7 1.6 - 2.4 mg/dL 04/25/2025 5:30 AM DRESSMAKER GARMENT FITTER [facility] Blood Venipuncture / Unknown 04/25/2025 4:40 AM DRESSMAKER GARMENT FITTER 04/25/2025 4:52 AM DRESSMAKER GARMENT FITTER us Rishabh Reed MD CHEMISTRY ORDERABLES Final Result Performing Organization Address City/[facility]/ZIP Co de Phone Number [facility] CLIA # [id number] [address] [place] [address] * (ABNORMAL) BASIC METABOLIC PANEL (04/25/2025 4:40 AM DRESSMAKER GARMENT FITTER) SODIUM 139 136 - 145 mmol/L 04/25/2025 5:30 AM [facility] POTASSIUM 3.3(L) 3.5 - 5.1 mmol/L 04/25/2025 5:30 AM [facility] CHLORIDE 103 98 - 107 mmol/L 04/25/2025 5:30 AM [facility] CO2 19(L) 22 - 29 mmol/L 04/25/2025 5:30 AM [facility] CALCIUM 10.5(H) 8.8 - 10.2 mg/dL 04/25/2025 5:30 AM [facility] BUN 68(H) 8 - 23 mg/dL 04/25/2025 5:30 AM [facility] CREATININE 1.86(H) 0.67 - 1.17 mg/dL 04/25/2025 5:30 AM [facility] GLUCOSE 86 74 - 99 mg/dL 04/25/2025 5:30 AM [facility] GFR 39(L) >=60 mL/min/1. 73 sq meter 04/25/2025 5:30 AM [facility] Comment:eGFR calculated with 2020 CKD-EPI equation. Vegetarian diet, extremely high or low muscle mass, and may affect results. Cystatin C with Glomerular Filtration Rate is a suitable alternative for these patients. ANION GAP 17 9 - 20 mmol/L 04/25/2025 5:30 AM [facility] Blood Venipuncture / Unknown 04/25/2025 4:40 AM DRESSMAKER GARMENT FITTER 04/25/2025 4:52 AM DRESSMAKER GARMENT FITTER us Rishabh Reed MD CHEMISTRY ORDERABLES Final Result [facility] CLIA # [id number] [address] [address] [place] [address] * (ABNORMAL) CBC WITH DIFFERENTIAL (04/25/2025 4:40 AM DRESSMAKER GARMENT FITTER) [facility] WBC 6.0 4.8 - 10.8 K/uL 04/25/2025 5:02 AM [facility] RBC 3.33(L) 4.60 - 6.20 M/uL 04/25/2025 5:02 AM [facility] HEMOGLOBIN 8.7(L) 14.0 - 18.0 g/dL 04/25/2025 5:02 AM [facility] HEMATOCRIT 29.2(L) 41.0 - 53.0 % 04/25/2025 5:02 AM [facility] MCV 87.7 84.0 - 103.0 fL 04/25/2025 5:02 AM [facility] MCH 26.1(L) 27.0 - 34.0 pg 04/25/2025 5:02 AM [facility] MCHC 29.8(L) 30.0 - 35.0 g/dL 04/25/2025 5:02 AM [facility] PLATELETS 204 140 - 440 K/uL 04/25/2025 5:02 AM [facility] MPV 9.7 8.9 - 12.8 fL 04/25/2025 5:02 AM [facility] RDW 19.4(H) 11.0 - 14.5 % 04/25/2025 5:02 AM [facility] RDW-STDEV 62.1(H) 37.0 - 54.0 fL 04/25/2025 5:02 AM [facility] NEUTROPHILS 71 42 - 75 % 04/25/2025 5:02 AM [facility] LYMPHOCYTES 15(L) 24 - 44 % 04/25/2025 5:02 AM [facility] MONOCYTES 9 2 - 10 % 04/25/2025 5:02 AM [facility] EOSINOPHILS 3 0 - 7 % 04/25/2025 5:02 AM [facility] BASOPHILS 1 0 - 1 % 04/25/2025 5:02 AM [facility] IMMATURE GRANULOCYTES 1 0 - 2 % 04/25/2025 5:02 AM [facility] NEUTROPHIL ABSOLUTE 4.30 2.00 - 8.00 K/uL 04/25/2025 5:02 AM [facility] LYMPHOCYTE ABSOLUTE 0.87(L) 1.20 - 4.00 K/uL 04/25/2025 5:02 AM [facility] MONOCYTE ABSOLUTE 0.54 0.10 - 0.60 K/uL 04/25/2025 5:02 AM [facility] EOSINOPHIL ABSOLUTE 0.20 0.00 - 0.70 K/uL 04/25/2025 5:02 AM [facility] BASOPHILS ABSOLUTE 0.05 0.00 - 0.20 K/uL 04/25/2025 5:02 AM [facility] IMMATURE GRANULOCYTES ABSOLUTE 0.06 0.00 - 0.10 K/uL 04/25/2025 5:02 AM [facility] SMEAR REVIEWED: NA - Not Applicable 04/25/2025 5:02 AM [facility] Blood Venipuncture / Unknown 04/25/2025 4:40 AM DRESSMAKER GARMENT FITTER 04/25/2025 4:51 AM DRESSMAKER GARMENT FITTER Rishabh Reed MD HEMATOLOGY ORDERABLES Cristy l Result [facility] CLIA # [id number] [address] [place] [address] * UNFRACTIONATED HEPARIN MONITORING (04/25/2025 4:40 AM DRESSMAKER GARMENT FITTER) ANTI-XA UNFRAC HEP 0.29 See Interpretation IU/mL 04/25/2025 5:06 AM [facility] Blood Venipuncture / Unknown 04/25/2025 4:40 AM DRESSMAKER GARMENT FITTER 04/25/2025 4:51 AM DRESSMAKER GARMENT FITTER Narrative [facility] - 04/25/2025 5:06 AM DRESSMAKER GARMENT FITTER Therapeutic Range: PT/DVT Heparin Protocol 0.3 - 0.7 IU/ml Cardiac Heparin Protocol 0.3 - 0.6 IU/ml The reference range for this test is specific to the anticoagulant and is not appropriate for monitoring patients on a DOAC protocol. Komal Crandall MD HEMATOLOGY ORDERABLES Final Resu lt Performing Organization Address [facility] de Phone Number [facility] CLIA # [id number] [address] [address] [place], [place] [address] * (ABNORMAL) HEMOGLOBIN AND HEMATOCRIT (04/24/2025 4:32 PM DRESSMAKER GARMENT FITTER) Pathologist [facility] HEMOGLOBIN 8.1(L) 14.0 - 18.0 g/dL 04/24/2025 4:58 PM DRESSMAKER GARMENT FITTER [facility] HEMATOCRIT 26.8(L) 41.0 - 53.0 % 04/24/2025 4:58 PM DRESSMAKER GARMENT FITTER [facility] Blood Venipuncture / Unknown 04/24/2025 4:32 PM DRESSMAKER GARMENT FITTER 04/24/2025 4:53 PM DRESSMAKER GARMENT FITTER Rishabh Reed MD HEMATOLOGY ORDERABLES Cristy l Result Performing Organization Address [facility] de Phone Number [facility] CLIA # [id number] [address] [address] * UNFRACTIONATED HEPARIN MONITORING (04/24/2025 10:35 AM DRESSMAKER GARMENT FITTER) ANTI-XA UNFRAC HEP 0.42 See Interpretation IU/mL 04/24/2025 10:52 AM DRESSMAKER GARMENT FITTER [facility] Blood Venipuncture / Unknown 04/24/2025 10:35 AM DRESSMAKER GARMENT FITTER 04/24/2025 10:39 AM DRESSMAKER GARMENT FITTER Narrative [facility] - 04/24/2025 10:52 AM DRESSMAKER GARMENT FITTER Therapeutic Range: PT/DVT Heparin Protocol 0.3 - 0.7 IU/ml Cardiac Heparin Protocol 0.3 - 0.6 IU/ml The reference range for this test is specific to the anticoagulant and is not appropriate for monitoring patients on a DOAC protocol. us Komal Crandall MD HEMATOLOGY ORDERABLES Final Resu lt [facility] # [id number] [address] [id number] * EKG 12-LEAD (04/24/2025 8:53 AM DRESSMAKER GARMENT FITTER) 04/24/2025 8:53 AM DRESSMAKER GARMENT FITTER Narrative INTERFACE SYSTEM - 04/25/2025 1:39 PM DRESSMAKER GARMENT FITTER [address] [address] Test Date: 2025-04-24 Pat Name: KRISTOPHER BLANCABISHOP Department: 12 Room: [address] [place] [address] Gender: Male Team Guide: [id number] : 1958-02-28 Requested By: Order Number: [id number] Reading MD: Hermila Chandra Measurements Intervals Sterling Rate: 100 P: 0 RI: 0 QRS: 42 QRSD: 186 T: 147 QT: 362 QTc: 466 Interpretive Statements Atrial fibrillation with premature ventricular or aberrantly conducted complexes Left bundle branch block Abnormal ECG Electronically Signed On 04-25-2025 13:39:02 DRESSMAKER GARMENT FITTER by Hermila Chandra Procedure Note Hermila Chandra MD - 04/25/2025 [address] [place] [address] Test Date: 2025-04-24 Pat Name: KRISTOPHER DEANA Department: 12 Room: [address] [place] [address] Gender: Male Team Guide: [id number] : 1958-02-28 Requested By: Order Number: [id number] Reading MD: Hermila Chandra Measurements Intervals Sterling Rate: 100 P: 0 RI: 0 QRS: 42 QRSD: 186 T: 147 QT: 362 QTc: 466 Interpretive Statements Atrial fibrillation with premature ventricular or aberrantly conducted complexes Left bundle branch block Abnormal ECG Electronically Signed On 04-25-2025 13:39:02 DRESSMAKER GARMENT FITTER by Hermila Chandra Tara Jiang MD ECG ORDERABLES Final Result Performing Organization Address [facility] de Phone Number INTERFACE SYSTEM Refer to clinic/hospital department * (ABNORMAL) HEMOGLOBIN AND HEMATOCRIT (04/24/2025 5:10 AM DRESSMAKER GARMENT FITTER) Pathologist [facility] HEMOGLOBIN 8.5(L) 14.0 - 18.0 g/dL 04/24/2025 5:53 AM DRESSMAKER GARMENT FITTER [facility] HEMATOCRIT 28.2(L) 41.0 - 53.0 % 04/24/2025 5:53 AM DRESSMAKER GARMENT FITTER [facility] Blood Venipuncture / Unknown 04/24/2025 5:10 AM DRESSMAKER GARMENT FITTER 04/24/2025 5:25 AM DRESSMAKER GARMENT FITTER Rishabh Reed MD HEMATOLOGY ORDERABLES Cristy l Result Performing Organization Address [facility] de Phone Number [facility] CLIA # [id number] [address] [place] [address] * MAGNESIUM LEVEL (04/24/2025 5:10 AM DRESSMAKER GARMENT FITTER) Pathologist [facility] MAGNESIUM 1.9 1.6 - 2.4 mg/dL 04/24/2025 5:53 AM DRESSMAKER GARMENT FITTER [facility] Blood Venipuncture / Unknown 04/24/2025 5:10 AM DRESSMAKER GARMENT FITTER 04/24/2025 5:23 AM DRESSMAKER GARMENT FITTER Rishabh Reed MD CHEMISTRY ORDERABLES Final Result Performing Organization Address [facility] Co de Phone Number [facility] CLIA # [id number] [address] [place] [address] * (ABNORMAL) BASIC METABOLIC PANEL (04/24/2025 5:10 AM DRESSMAKER GARMENT FITTER) SODIUM 139 136 - 145 mmol/L 04/24/2025 5:53 AM [facility] POTASSIUM 3.2(L) 3.5 - 5.1 mmol/L 04/24/2025 5:53 AM [facility] CHLORIDE 103 98 - 107 mmol/L 04/24/2025 5:53 AM [facility] CO2 21(L) 22 - 29 mmol/L 04/24/2025 5:53 AM [facility] CALCIUM 10.3(H) 8.8 - 10.2 mg/dL 04/24/2025 5:53 AM [facility] BUN 82(H) 8 - 23 mg/dL 04/24/2025 5:53 AM [facility] CREATININE 2.06(H) 0.67 - 1.17 mg/dL 04/24/2025 5:53 AM [facility] GLUCOSE 90 74 - 99 mg/dL 04/24/2025 5:53 AM [facility] GFR 34(L) >=60 mL/min/1. 73 sq meter 04/24/2025 5:53 AM [facility] Comment:eGFR calculated with 2020 CKD-EPI equation. Vegetarian diet, extremely high or low muscle mass, and may affect results. Cystatin C with Glomerular Filtration Rate is a suitable alternative for these patients. ANION GAP 15 9 - 20 mmol/L 04/24/2025 5:53 AM [facility] Blood Venipuncture / Unknown 04/24/2025 5:10 AM DRESSMAKER GARMENT FITTER 04/24/2025 5:23 AM DRESSMAKER GARMENT FITTER us Rishabh Reed MD CHEMISTRY ORDERABLES Final Result [facility] CLIA # [id number] [address] [address] * UNFRACTIONATED HEPARIN MONITORING (04/24/2025 2:44 AM DRESSMAKER GARMENT FITTER) [facility] ANTI-XA UNFRAC HEP 0.43 See Interpretation IU/mL 04/24/2025 3:08 AM DRESSMAKER GARMENT FITTER [facility] Blood Venipuncture / Unknown 04/24/2025 2:44 AM DRESSMAKER GARMENT FITTER 04/24/2025 2:55 AM DRESSMAKER GARMENT FITTER Narrative [facility] - 04/24/2025 3:08 AM DRESSMAKER GARMENT FITTER Therapeutic Range: PT/DVT Heparin Protocol 0.3 - 0.7 IU/ml Cardiac Heparin Protocol 0.3 - 0.6 IU/ml The reference range for this test is specific to the anticoagulant and is not appropriate for monitoring patients on a DOAC protocol. us Komal Crandall MD HEMATOLOGY ORDERABLES Final Resu lt Performing Organization Address [facility] Co de Phone Number [facility] CLIA # [id number] [address] [address] * (ABNORMAL) HEMOGLOBIN AND HEMATOCRIT (04/24/2025 12:39 AM DRESSMAKER GARMENT FITTER) [facility] HEMOGLOBIN 8.4(L) 14.0 - 18.0 g/dL 04/24/2025 12:49 AM DRESSMAKER GARMENT FITTER [facility] HEMATOCRIT 27.7(L) 41.0 - 53.0 % 04/24/2025 12:49 AM [facility] Blood Venipuncture / Unknown 04/24/2025 12:39 AM DRESSMAKER GARMENT FITTER 04/24/2025 12:46 AM DRESSMAKER GARMENT FITTER us Rishabh Reed MD HEMATOLOGY ORDERABLES Cristy l Result Performing Organization Address City/[facility]/ZIP Co de Phone Number [facility] CLIA # [id number] [address] [address] * (ABNORMAL) HEMOGLOBIN AND HEMATOCRIT (04/23/2025 8:40 PM DRESSMAKER GARMENT FITTER) [facility] HEMOGLOBIN 8.8(L) 14.0 - 18.0 g/dL 04/23/2025 8:55 PM DRESSMAKER GARMENT FITTER [facility] HEMATOCRIT 29.4(L) 41.0 - 53.0 % 04/23/2025 8:55 PM DRESSMAKER GARMENT FITTER [facility] Blood Venipuncture / Unknown 04/23/2025 8:40 PM DRESSMAKER GARMENT FITTER 04/23/2025 8:47 PM DRESSMAKER GARMENT FITTER us Gregorio Rogers MD HEMATOLOGY ORDERABLE S Final Result Performing Organization Address [facility]/ZIP [facility] [id number] [address] [place] [id number] * UNFRACTIONATED HEPARIN MONITORING (04/23/2025 7:42 PM DRESSMAKER GARMENT FITTER) [facility] ANTI-XA UNFRAC HEP 0.20 See Interpretation IU/mL 04/23/2025 8:16 PM DRESSMAKER GARMENT FITTER [facility] Blood Venipuncture / Unknown 04/23/2025 7:42 PM DRESSMAKER GARMENT FITTER 04/23/2025 7:55 PM DRESSMAKER GARMENT FITTER Narrative [facility] - 04/23/2025 8:16 PM DRESSMAKER GARMENT FITTER Therapeutic Range: PT/DVT Heparin Protocol 0.3 - 0.7 IU/ml Cardiac Heparin Protocol 0.3 - 0.6 IU/ml The reference range for this test is specific to the anticoagulant and is not appropriate for monitoring patients on a DOAC protocol. us Komal Crandall MD HEMATOLOGY ORDERABLES Final Resu lt Performing Organization Address City/[facility]/ZIP Co de Phone Number [facility] CLIA # [id number] [address] [id number] * (ABNORMAL) HEMOGLOBIN AND HEMATOCRIT (04/23/2025 1:24 PM DRESSMAKER GARMENT FITTER) HEMOGLOBIN 8.9(L) 14.0 - 18.0 g/dL 04/23/2025 1:41 PM DRESSMAKER GARMENT FITTER [facility] HEMATOCRIT 29.6(L) 41.0 - 53.0 % 04/23/2025 1:41 PM DRESSMAKER GARMENT FITTER [facility] Blood Venipuncture / Unknown 04/23/2025 1:24 PM DRESSMAKER GARMENT FITTER 04/23/2025 1:28 PM DRESSMAKER GARMENT FITTER us Gregorio Rogers MD HEMATOLOGY ORDERABLE S Final Result Performing Organization Address [facility]/ZIP Co de Phone Number [facility] CLIA # [id number] [address] [address] [place], [place] [id number] * UNFRACTIONATED HEPARIN MONITORING (04/23/2025 1:24 PM DRESSMAKER GARMENT FITTER) [facility] ANTI-XA UNFRAC HEP 0.33 See Interpretation IU/mL 04/23/2025 1:57 PM DRESSMAKER GARMENT FITTER [facility] Blood Venipuncture / Unknown 04/23/2025 1:24 PM DRESSMAKER GARMENT FITTER 04/23/2025 1:28 PM DRESSMAKER GARMENT FITTER Narrative [facility] - 04/23/2025 1:57 PM DRESSMAKER GARMENT FITTER Therapeutic Range: PT/DVT Heparin Protocol 0.3 - 0.7 IU/ml Cardiac Heparin Protocol 0.3 - 0.6 IU/ml The reference range for this test is specific to the anticoagulant and is not appropriate for monitoring patients on a DOAC protocol. us Komal Crandall MD HEMATOLOGY ORDERABLES Final Resu lt Performing Organization Address City/[facility]/ZIP Co de Phone Number [facility] CLIA # [id number] [address] [id number] * ECHO TRANSESOPHAGEAL WITH CARDIOVERSION (04/23/2025 10:00 AM DRESSMAKER GARMENT FITTER) Pathologist [facility] EJECTION FRACTION EF: INTERFACE SYSTEM 04/23/2025 8:[address] [facility] [employer] INTERFACE SYSTEM - 04/23/2025 9:56 AM [facility] Cardiovascular Services Echocardiography Laboratory [address] [place] [address] Transesophageal Echocardiography with Cardioversion Patient: Kristopher Leblanc Study ID: ECHO TRANSELBAOPHA Gender: M : 02/28/1958 Age: 67 Room: [facility] Study Date: 04/23/2025 Pt Status: Inpatient Study Time: 08:49:44 AM CSN #: [id number] Ordering:Tara Jiang Embroidery Operator: LINDSEY Nurse: Marleni Vazquez Indications and History: [...] septum: Agitated saline contrast study shows no lydrc-dy-yqbd shunt. - Mitral valve: The annulus is [...] transesophageal probe was inserted by the attending truck rental manager without difficulty. Image quality was adequate. Intravenous [...] Doppler. Agitated saline contrast study shows no aiizu-ib-vcgt shunt. AORTIC VALVE: The valve is trileaflet. [...] (H) pasquale values outside specified reference range. [facility] are accredited with the Intersocietal Accreditation Commission - Echocardiography. Prepared and Electronically Authenticated Aman Robles Confirmed 04/23/2025 09:56 Procedure Note Aman Robles MD - 04/23/2025 [facility] Cardiovascular Services Echocardiography Laboratory [address] [place] [address] Transesophageal Echocardiography with Cardioversion Patient: Kristopher Leblanc Study ID: ECHOTRANSESOPHA Gender: M : 02/28/1958 Age: 67 Room: [facility] Study Date: 04/23/2025 Pt Status: Inpatient Study Time: 08:49:44 AM CSN #: [id number] Ordering:Tara Jiang Embroidery Operator: LINDSEY Nurse: Marleni Vazquez Indications and History: [...] septum: Agitated saline contrast study shows no ajupg-kq-mllgzxobn. - Mitral valve: The annulus is calcified. [...] multiplane transesophageal probe was insertedby the attending truck rental manager without difficulty. Image quality wasadequate. Intravenous contrast (agitated saline) was administered. Thetransesophageal probe was removed. No intracardiac thrombus was identified. Aftercompletion of transesophageal echocardiogram we proceeded with electricalcardioversion. The rhythm was successfully converted from atrial fibrillation to normalsinus rhythm, using biphasic synchronized shocks with a energy of 200J. Study completion: The patient tolerated the procedure well. Sedation begun be1607 and 0924. There were no complications. Administered [...] Doppler. Agitated saline contrast study shows no ffpqr-wx-dsey shunt. AORTIC VALVE: The valve is trileaflet. [...] (H) pasquale values outside specified reference range. [facility] are accredited with theIntersocietal Accreditation Commission - Echocardiography. Prepared and Electronically Authenticated Aman Robles Confirmed 04/23/2025 09:56 us Tara Jiang MD ORDERABLES Final Result INTERFACE SYSTEM Refer to clinic/hospital department * UNFRACTIONATED HEPARIN MONITORING (04/23/2025 6:11 AM DRESSMAKER GARMENT FITTER) ANTI-XA UNFRAC HEP 0.24 See Interpretation IU/mL 04/23/2025 6:38 AM [facility] Blood Venipuncture / Unknown 04/23/2025 6:11 AM DRESSMAKER GARMENT FITTER 04/23/2025 6:19 AM DRESSMAKER GARMENT FITTER Narrative [facility] - 04/23/2025 6:38 AM DRESSMAKER GARMENT FITTER Therapeutic Range: PT/DVT Heparin Protocol 0.3 - 0.7 IU/ml Cardiac Heparin Protocol 0.3 - 0.6 IU/ml The reference range for this test is specific to the anticoagulant and is not appropriate for monitoring patients on a DOAC protocol. Komal Crandall MD HEMATOLOGY ORDERABLES Final Resu lt Performing Organization Address [facility] de Phone Number [facility] CLIA # [id number] [address] [address] * (ABNORMAL) HEMOGLOBIN AND HEMATOCRIT (04/23/2025 6:11 AM DRESSMAKER GARMENT FITTER) HEMOGLOBIN 8.3(L) 14.0 - 18.0 g/dL 04/23/2025 6:25 AM [facility] HEMATOCRIT 27.3(L) 41.0 - 53.0 % 04/23/2025 6:25 AM [facility] Blood Venipuncture / Unknown 04/23/2025 6:11 AM DRESSMAKER GARMENT FITTER 04/23/2025 6:19 AM DRESSMAKER GARMENT FITTER Gregorio Rogers MD HEMATOLOGY ORDERABLE S Final Result Performing Organization Address [facility] de Phone Number [facility] CLIA # [id number] [address] [address] * MAGNESIUM LEVEL (04/23/2025 3:12 AM DRESSMAKER GARMENT FITTER) MAGNESIUM 1.9 1.6 - 2.4 mg/dL 04/23/2025 4:01 AM [facility] Blood Venipuncture / Unknown 04/23/2025 3:12 AM DRESSMAKER GARMENT FITTER 04/23/2025 3:21 AM DRESSMAKER GARMENT FITTER Rishabh Reed MD CHEMISTRY ORDERABLES Final Result [facility] CLIA # [id number] [address] [place] [address] [place] [address] * (ABNORMAL) BASIC METABOLIC PANEL (04/23/2025 3:12 AM DRESSMAKER GARMENT FITTER) SODIUM 134(L) 136 - 145 mmol/L 04/23/2025 4:01 AM [facility] POTASSIUM 3.6 3.5 - 5.1 mmol/L 04/23/2025 4:01 AM [facility] CHLORIDE 97(L) 98 - 107 mmol/L 04/23/2025 4:01 AM [facility] CO2 19(L) 22 - 29 mmol/L 04/23/2025 4:01 AM [facility] CALCIUM 9.8 8.8 - 10.2 mg/dL 04/23/2025 4:01 AM [facility] BUN 89(H) 8 - 23 mg/dL 04/23/2025 4:01 AM [facility] CREATININE 2.33(H) 0.67 - 1.17 mg/dL 04/23/2025 4:01 AM [facility] GLUCOSE 187(H) 74 - 99 mg/dL 04/23/2025 4:01 AM [facility] GFR 30(L) >=60 mL/min/1. 73 sq meter 04/23/2025 4:01 AM [facility] Comment:eGFR calculated with 2020 CKD-EPI equation. Vegetarian diet, extremely high or low muscle mass, and may affect results. Cystatin C with Glomerular Filtration Rate is a suitable alternative for these patients. ANION GAP 18 9 - 20 mmol/L 04/23/2025 4:01 AM [facility] Blood Venipuncture / Unknown 04/23/2025 3:12 AM DRESSMAKER GARMENT FITTER 04/23/2025 3:21 AM DRESSMAKER GARMENT FITTER Rishabh Reed MD CHEMISTRY ORDERABLES Final Result [facility] CLIA # [id number] [address] [address] [place] [address] * (ABNORMAL) CBC WITH DIFFERENTIAL (04/23/2025 3:12 AM DRESSMAKER GARMENT FITTER) [facility] WBC 7.0 4.8 - 10.8 K/uL 04/23/2025 3:28 AM [facility] RBC 3.22(L) 4.60 - 6.20 M/uL 04/23/2025 3:28 AM [facility] HEMOGLOBIN 8.4(L) 14.0 - 18.0 g/dL 04/23/2025 3:28 AM [facility] HEMATOCRIT 28.1(L) 41.0 - 53.0 % 04/23/2025 3:28 AM [facility] MCV 87.3 84.0 - 103.0 fL 04/23/2025 3:28 AM [facility] MCH 26.1(L) 27.0 - 34.0 pg 04/23/2025 3:28 AM [facility] MCHC 29.9(L) 30.0 - 35.0 g/dL 04/23/2025 3:28 AM [facility] PLATELETS 210 140 - 440 K/uL 04/23/2025 3:28 AM [facility] MPV 9.7 8.9 - 12.8 fL 04/23/2025 3:28 AM [facility] RDW 19.1(H) 11.0 - 14.5 % 04/23/2025 3:28 AM [facility] RDW-STDEV 60.2(H) 37.0 - 54.0 fL 04/23/2025 3:28 AM [facility] NEUTROPHILS 77(H) 42 - 75 % 04/23/2025 3:28 AM [facility] LYMPHOCYTES 10(L) 24 - 44 % 04/23/2025 3:28 AM [facility] MONOCYTES 8 2 - 10 % 04/23/2025 3:28 AM [facility] EOSINOPHILS 3 0 - 7 % 04/23/2025 3:28 AM [facility] BASOPHILS 1 0 - 1 % 04/23/2025 3:28 AM [facility] IMMATURE GRANULOCYTES 1 0 - 2 % 04/23/2025 3:28 AM [facility] NEUTROPHIL ABSOLUTE 5.38 2.00 - 8.00 K/uL 04/23/2025 3:28 AM [facility] LYMPHOCYTE ABSOLUTE 0.73(L) 1.20 - 4.00 K/uL 04/23/2025 3:28 AM [facility] MONOCYTE ABSOLUTE 0.55 0.10 - 0.60 K/uL 04/23/2025 3:28 AM [facility] EOSINOPHIL ABSOLUTE 0.21 0.00 - 0.70 K/uL 04/23/2025 3:28 AM [facility] BASOPHILS ABSOLUTE 0.05 0.00 - 0.20 K/uL 04/23/2025 3:28 AM [facility] IMMATURE GRANULOCYTES ABSOLUTE 0.07 0.00 - 0.10 K/uL 04/23/2025 3:28 AM [facility] SMEAR REVIEWED: NN - No Action Needed 04/23/2025 3:28 AM [facility] Blood Venipuncture / Unknown 04/23/2025 3:12 AM DRESSMAKER GARMENT FITTER 04/23/2025 3:19 AM DRESSMAKER GARMENT FITTER us Rishabh Reed MD HEMATOLOGY ORDERABLES Cristy l Result [facility] CLIA # [id number] [address] [address] [place], [place] [address] * (ABNORMAL) HEMOGLOBIN AND HEMATOCRIT (04/22/2025 11:22 PM DRESSMAKER GARMENT FITTER) HEMOGLOBIN 8.3(L) 14.0 - 18.0 g/dL 04/22/2025 11:35 PM DRESSMAKER GARMENT FITTER [facility] HEMATOCRIT 27.7(L) 41.0 - 53.0 % 04/22/2025 11:35 PM DRESSMAKER GARMENT FITTER [facility] Blood Venipuncture / Unknown 04/22/2025 11:22 PM DRESSMAKER GARMENT FITTER 04/22/2025 11:32 PM DRESSMAKER GARMENT FITTER us Gregorio Rogers MD HEMATOLOGY ORDERABLE S Final Result Performing Organization Address [facility]/ZIP Co de Phone Number [facility] CLIA # [id number] [address] [address] * UNFRACTIONATED HEPARIN MONITORING (04/22/2025 11:22 PM DRESSMAKER GARMENT FITTER) ANTI-XA UNFRAC HEP 0.12 See Interpretation IU/mL 04/23/2025 12:21 AM DRESSMAKER GARMENT FITTER [facility] Blood Venipuncture / Unknown 04/22/2025 11:22 PM DRESSMAKER GARMENT FITTER 04/22/2025 11:32 PM DRESSMAKER GARMENT FITTER Narrative [facility] - 04/23/2025 12:21 AM DRESSMAKER GARMENT FITTER Therapeutic Range: PT/DVT Heparin Protocol 0.3 - 0.7 IU/ml Cardiac Heparin Protocol 0.3 - 0.6 IU/ml The reference range for this test is specific to the anticoagulant and is not appropriate for monitoring patients on a DOAC protocol. us Komal Crandall MD HEMATOLOGY ORDERABLES Final Resu lt Performing Organization Address City/[facility]/ZIP Co de Phone Number [facility] CLIA # [id number] [address] [id number] * POC GLUCOSE (04/22/2025 9:52 PM DRESSMAKER GARMENT FITTER) GLUCOSE POC 89 74 - 99 mg/dL 04/22/2025 9:52 PM DRESSMAKER GARMENT FITTER [facility] SPECIMEN SOURCE, GLUCOSE POC Capillary 04/22/2025 9:52 PM DRESSMAKER GARMENT FITTER [facility] Blood, whole 04/22/2025 9:52 PM DRESSMAKER GARMENT FITTER 04/22/2025 10:04 PM DRESSMAKER GARMENT FITTER Komal Crandall MD POINT OF CARE TESTING Final Resu lt Performing Organization Address [facility] Co de Phone Number [facility] CLIA # [id number] [address] [place] [address] * (ABNORMAL) HEMOGLOBIN AND HEMATOCRIT (04/22/2025 9:24 PM DRESSMAKER GARMENT FITTER) HEMOGLOBIN 8.1(L) 14.0 - 18.0 g/dL 04/22/2025 9:50 PM DRESSMAKER GARMENT FITTER [facility] HEMATOCRIT 27.3(L) 41.0 - 53.0 % 04/22/2025 9:50 PM DRESSMAKER GARMENT FITTER [facility] Blood Venipuncture / Unknown 04/22/2025 9:24 PM DRESSMAKER GARMENT FITTER 04/22/2025 9:42 PM DRESSMAKER GARMENT FITTER us Gregorio Rogers MD HEMATOLOGY ORDERABLE S Final Result Performing Organization Address [facility] Co de Phone Number [facility] CLIA # [id number] [address] [address] * POTASSIUM LEVEL (04/22/2025 2:30 PM DRESSMAKER GARMENT FITTER) POTASSIUM 3.8 3.5 - 5.1 mmol/L 04/22/2025 3:08 PM DRESSMAKER GARMENT FITTER [facility] Blood Venipuncture / Unknown 04/22/2025 2:30 PM DRESSMAKER GARMENT FITTER 04/22/2025 2:44 PM DRESSMAKER GARMENT FITTER us Komal Crandall MD CHEMISTRY ORDERABLES Final Resul t Performing Organization Address [facility] Co de Phone Number [facility] CLIA # [id number] [address] [address] * (ABNORMAL) HEMOGLOBIN AND HEMATOCRIT (04/22/2025 2:30 PM DRESSMAKER GARMENT FITTER) [facility] HEMOGLOBIN 9.5(L) 14.0 - 18.0 g/dL 04/22/2025 2:57 PM DRESSMAKER GARMENT FITTER [facility] HEMATOCRIT 31.4(L) 41.0 - 53.0 % 04/22/2025 2:57 PM DRESSMAKER GARMENT FITTER [facility] Blood Venipuncture / Unknown 04/22/2025 2:30 PM DRESSMAKER GARMENT FITTER 04/22/2025 2:44 PM DRESSMAKER GARMENT FITTER Gregorio Rogers MD HEMATOLOGY ORDERABLE S Final Result Performing Organization Address [facility] Co de Phone Number [facility] CLIA # [id number] [address] [address] * UNFRACTIONATED HEPARIN MONITORING (04/22/2025 2:30 PM DRESSMAKER GARMENT FITTER) [facility] ANTI-XA UNFRAC HEP 0.13 See Interpretation IU/mL 04/22/2025 3:33 PM DRESSMAKER GARMENT FITTER [facility] Blood Venipuncture / Unknown 04/22/2025 2:30 PM DRESSMAKER GARMENT FITTER 04/22/2025 2:44 PM DRESSMAKER GARMENT FITTER Narrative [facility] - 04/22/2025 3:33 PM DRESSMAKER GARMENT FITTER Therapeutic Range: PT/DVT Heparin Protocol 0.3 - 0.7 IU/ml Cardiac Heparin Protocol 0.3 - 0.6 IU/ml The reference range for this test is specific to the anticoagulant and is not appropriate for monitoring patients on a DOAC protocol. Komal Crandall MD HEMATOLOGY ORDERABLES Final Resu lt [facility] # [id number] [address] [address] [place] [address] * US RENAL (04/22/2025 1:19 PM DRESSMAKER GARMENT FITTER) Anatomical Region Laterality Modality Abdomen Ultrasound 04/22/2025 1:19 PM DRESSMAKER GARMENT FITTER Impressions 04/22/2025 1:30 PM DRESSMAKER GARMENT FITTER IMPRESSION: Please see below. Exam: US RENAL [...] EXTRA TUBE (URINE MELENDEZ) (04/22/2025 1:04 PM DRESSMAKER GARMENT FITTER) Urine URINE SPECIMEN OBTAINED BY CLEAN CATCH PROCEDURE / Unknown Collection / Unknown 04/22/2025 1:04 PM DRESSMAKER GARMENT FITTER 04/22/2025 1:13 PM DRESSMAKER GARMENT FITTER us Uvaldo Huber MD URINE ORDERABLES Final Resul t [facility] # [id number] [address] [place] [address] * (ABNORMAL) PROTEIN/CREATININE RATIO, URINE (04/22/2025 1:04 PM DRESSMAKER GARMENT FITTER) PROTEIN CONCENTRATION 75(H) 0 - 20 mg/dL 04/22/2025 1:56 PM DRESSMAKER GARMENT FITTER [facility] CREATININE, URINE 15.3(L) 40.0 - 278.0 mg/dL 04/22/2025 1:56 PM [facility] Comment:Reference Range vari es with fluid intake and diet. PROTEIN/CREAT RATIO, URINE 4.90(H) 0.00 - 0.19 mg/mg Creatinine 04/22/2025 1:56 PM [facility] Urine URINE SPECIMEN OBTAINED BY CLEAN CATCH PROCEDURE / Unknown Collection / Unknown 04/22/2025 1:04 PM DRESSMAKER GARMENT FITTER 04/22/2025 1:13 PM DRESSMAKER GARMENT FITTER us Uvaldo Huber MD URINE ORDERABLES Final Resul t [facility] CLIA # [id number] [address] [place] [address] * (ABNORMAL) URINALYSIS WITH REFLEX MICROSCOPIC (04/22/2025 1:04 PM DRESSMAKER GARMENT FITTER) COLOR UA Colorless(A ) Pale to Dark Yellow 04/22/2025 1:23 PM [facility] CLARITY UA Cloudy(A) Clear 04/22/2025 1:23 PM [facility] SPECIFIC GRAVITY UA 1.008 1.003 - 1.035 04/22/2025 1:23 PM [facility] PH UA 6.0 5.0 - 8.0 04/22/2025 1:23 PM [facility] LEUKOCYTE ESTERASE UA 3+(A) Negative 04/22/2025 1:23 PM [facility] NITRITE UA Negative Negative 04/22/2025 1:23 PM [facility] PROTEIN UA 1+(A) Negative 04/22/2025 1:23 PM DRESSMAKER GARMENT FITTER [facility] GLUCOSE UA Negative Negative 04/22/2025 1:23 PM DRESSMAKER GARMENT FITTER [facility] KETONES UA Negative Negative 04/22/2025 1:23 PM [facility] UROBILINOGEN UA <2.0 <2.0 mg/dL 1:23 PM [facility] BILIRUBIN UA Negative Negative 04/22/2025 1:23 PM [facility] BLOOD UA 3+(A) Negative 04/22/2025 1:23 PM [facility] WBC UA >100(A) 0 - 2 /hpf 04/22/2025 1:23 PM [facility] RBC UA >100(A) 0 - 2 /hpf 04/22/2025 1:23 PM [facility] BACTERIA UA 1+(A) Negative /hpf 04/22/2025 1:23 PM [facility] HYALINE CAST 0-2 None Seen, 0-2 /lpf 04/22/2025 1:23 PM [facility] Urine URINE SPECIMEN OBTAINED BY CLEAN CATCH PROCEDURE / Unknown Collection / Unknown 04/22/2025 1:04 PM DRESSMAKER GARMENT FITTER 04/22/2025 1:13 PM DRESSMAKER GARMENT FITTER us Uvaldo Huber MD URINE ORDERABLES Final Resul t [facility] CLIA # [id number] [address] [place] [address] [place] [address] * (ABNORMAL) UREA NITROGEN/CREATININE RATIO, URINE (04/22/2025 1:04 PM DRESSMAKER GARMENT FITTER) UREA NITROGEN, URINE 156 mg/dL 04/22/2025 1:55 PM [facility] Comment:Reference range not established CREATININE, URINE 15.3(L) 40.0 - 278.0 mg/dL 04/22/2025 1:55 PM [facility] Comment:Reference Range vari es with fluid intake and diet. UREA/CREAT RATIO, UR 10.2 mg/mg Creatinine 04/22/2025 1:55 PM DRESSMAKER GARMENT FITTER [facility] Urine URINE SPECIMEN OBTAINED BY CLEAN CATCH PROCEDURE / Unknown Collection / Unknown 04/22/2025 1:04 PM DRESSMAKER GARMENT FITTER 04/22/2025 1:13 PM DRESSMAKER GARMENT FITTER Gregorio Rogers MD URINE ORDERABLES Fin al Result Performing Organization Address [facility]/ZIP Co de Phone Number [facility] CLIA # [id number] [address] [facility] [place] [address] * SODIUM, RANDOM URINE (04/22/2025 1:04 PM DRESSMAKER GARMENT FITTER) SODIUM, URINE 122 mmol/L 04/22/2025 1:56 PM DRESSMAKER GARMENT FITTER [facility] Comment:Reference range not established Urine URINE SPECIMEN OBTAINED BY CLEAN CATCH PROCEDURE / Unknown Collection / Unknown 04/22/2025 1:04 PM DRESSMAKER GARMENT FITTER 04/22/2025 1:13 PM DRESSMAKER GARMENT FITTER Gregorio Rogers MD URINE ORDERABLES Fin al Result Performing Organization Address [facility] Co de Phone Number [facility] CLIA # [id number] [address] [address] * ECHOCARDIOGRAM W/ CONTRAST AGENT (04/22/2025 10:37 AM DRESSMAKER GARMENT FITTER) EJECTION FRACTION 30 INTERFACE SYSTEM 04/22/2025 9:42 AM DRESSMAKER GARMENT FITTER Narrative INTERFACE SYSTEM - 04/22/2025 11:20 AM DRESSMAKER GARMENT FITTER [facility] Echocardiography Laboratory [address] [place] [address] Transthoracic Echocardiography Patient: Kristopher Leblanc Study ID: ECHO COMPLETE - Gender: M : 02/28/1958 Age: 67 Room: [facility] Study Date: 04/22/2025 Pt Status: Inpatient Study Time: 09:42:33 AM [facility] #: [id number] Ordering:Tara Jiang Embroidery Operator: ELLIOTT Indications and History: HF, Cardiomyopathy; Initial [...] function is moderately to severely reduced. For [facility] reporting: the left ventricular ejection fraction is [...] (H) pasquale values outside specified reference range. [facility] are accredited with the Intersocietal Accreditation Commission - Echocardiography. Prepared and Electronically Authenticated Carlos Brownlee Confirmed 04/22/2025 11:20 Procedure Note Carlos Brownlee MD - 04/22/2025 [facility] Echocardiography Laboratory [address] [place] [address] Transthoracic Echocardiography Patient: Kristopher Leblanc Study ID: ECHO COMPLETE- Gender: Jayleen : 02/28/1958 Age: 67 Room: [facility] Study Date: 04/22/2025 Pt Status: Inpatient Study Time: 09:42:33 AM CSN #: [id number] Ordering:Tara Jiang Embroidery Operator: ELLIOTT Indications and History: HF, Cardiomyopathy; Initial evaluation ofknown or suspected HF/cardiomyopathy (restrictiv, infiltrative, dilated, hypertrophic). Summary and Conclusion: - Left ventricle: The cavity size is mildly to moderately dilated. Wall thickness is increased in a pattern of mild LVH. Global systolicfunction is moderately to severely reduced. For [facility] reporting: the leftventricular ejection fraction is 30% [...] systolic functionis moderately to severely reduced. For [facility] reporting: the left ventricular ejection fraction is [...] (H) pasquale values outside specified reference range. [facility] are accredited with the[facility] Accreditation Commission - Echocardiography. Prepared and Electronically Authenticated Carlos Brownlee Confirmed 04/22/2025 11:20 us Tara Jiang MD US ORDERABLES Final Result INTERFACE SYSTEM Refer to clinic/hospital department * MAGNESIUM LEVEL (04/22/2025 4:45 AM DRESSMAKER GARMENT FITTER) MAGNESIUM 2.0 1.6 - 2.4 mg/dL 04/22/2025 5:35 AM [employer]ESSMAKER GARMENT [employer]TER [facility] Blood Venipuncture / Unknown 04/22/2025 4:45 AM DRESSMAKER G[employer]MENT FITTER 04/22/2025 4:58 AM [employer]ESSMAKER GARMENT FITTER Rishabh Reed MD CHEMISTRY ORDERABLES Final Result Performing Organization Address [facility]/ZIP Co de Phone Number [facility] CLIA # [id number] [id number] [id number] * (ABNORMAL) BASIC METABOLIC PANEL (04/22/2025 4:45 AM DRESSMAKER GARMENT FITTER) SODIUM 136 136 - 145 mmol/L 04/22/2025 5:35 AM [facility] POTASSIUM 3.3(L) 3.5 - 5.1 mmol/L 04/22/2025 5:35 AM [facility] CHLORIDE 97(L) 98 - 107 mmol/L 04/22/2025 5:35 AM [facility] CO2 20(L) 22 - 29 mmol/L 04/22/2025 5:35 AM [facility] CALCIUM 10.2 8.8 - 10.2 mg/dL 04/22/2025 5:35 AM [facility] BUN 102(H) 8 - 23 mg/dL 04/22/2025 5:35 AM [facility] CREATININE 3.14(H) 0.67 - 1.17 mg/dL 04/22/2025 5:35 AM [facility] GLUCOSE 155(H) 74 - 99 mg/dL 04/22/2025 5:35 AM [facility] GFR 21(L) >=60 mL/min/1. 73 sq meter 04/22/2025 5:35 AM [facility] Comment:eGFR calculated with 2020 CKD-EPI equation. Vegetarian diet, extremely high or low muscle mass, and may affect results. Cystatin C with Glomerular Filtration Rate is a suitable alternative for these patients. ANION GAP 19 9 - 20 mmol/L 04/22/2025 5:35 AM [facility] Blood Venipuncture / Unknown 04/22/2025 4:45 AM DRESSMAKER GARMENT FITTER 04/22/2025 4:58 AM DRESSMAKER GARMENT FITTER us Rishabh Reed MD CHEMISTRY ORDERABLES Final Result [facility] CLIA # [id number] [address] [place] [address] [place] [address] * (ABNORMAL) CBC WITH DIFFERENTIAL (04/22/2025 4:[address] [facility]) [facility] WBC 8.1 4.8 - 10.8 K/uL 04/22/2025 5:15 AM [facility] RBC 3.27(L) 4.60 - 6.20 M/uL 04/22/2025 5:15 AM [facility] HEMOGLOBIN 8.5(L) 14.0 - 18.0 g/dL 04/22/2025 5:15 AM [facility] HEMATOCRIT 28.6(L) 41.0 - 53.0 % 04/22/2025 5:15 AM [facility] MCV 87.5 84.0 - 103.0 fL 04/22/2025 5:15 AM [facility] MCH 26.0(L) 27.0 - 34.0 pg 04/22/2025 5:15 AM [facility] MCHC 29.7(L) 30.0 - 35.0 g/dL 04/22/2025 5:15 AM [facility] PLATELETS 201 140 - 440 K/uL 04/22/2025 5:15 AM [facility] MPV 9.7 8.9 - 12.8 fL 04/22/2025 5:15 AM [facility] RDW 19.1(H) 11.0 - 14.5 % 04/22/2025 5:15 AM [facility] RDW-STDEV 61.1(H) 37.0 - 54.0 fL 04/22/2025 5:15 AM [facility] NEUTROPHILS 71 42 - 75 % 04/22/2025 5:15 AM [facility] LYMPHOCYTES 16(L) 24 - 44 % 04/22/2025 5:15 AM [facility] MONOCYTES 8 2 - 10 % 04/22/2025 5:15 AM [facility] EOSINOPHILS 3 0 - 7 % 04/22/2025 5:15 AM [facility] BASOPHILS 1 0 - 1 % 04/22/2025 5:15 AM [facility] IMMATURE GRANULOCYTES 1 0 - 2 % 04/22/2025 5:15 AM [facility] NEUTROPHIL ABSOLUTE 5.73 2.00 - 8.00 K/uL 04/22/2025 5:15 AM [facility] LYMPHOCYTE ABSOLUTE 1.30 1.20 - 4.00 K/uL 04/22/2025 5:15 AM [facility] MONOCYTE ABSOLUTE 0.62(H) 0.10 - 0.60 K/uL 04/22/2025 5:15 AM [facility] EOSINOPHIL ABSOLUTE 0.27 0.00 - 0.70 K/uL 04/22/2025 5:15 AM [facility] BASOPHILS ABSOLUTE 0.04 0.00 - 0.20 K/uL 04/22/2025 5:15 AM [facility] IMMATURE GRANULOCYTES ABSOLUTE 0.10 0.00 - 0.10 K/uL 04/22/2025 5:15 AM [facility] SMEAR REVIEWED: NN - No Action Needed 04/22/2025 5:15 AM [facility] Blood Venipuncture / Unknown 04/22/2025 4:45 AM DR[employer]KER GARMENT FITTER 04/22/2025 4:[address] [facility] us Rishabh Reed MD HEMATOLOGY ORDERABLES Cristy l Result [facility] CLIA # [id number] [address] [place] [phone] * (ABNORMAL) HEMOGLOBIN AND HEMATOCRIT (04/22/2025 12:01 AM DRESSMAKER GARMENT FITTER) [facility] HEMOGLOBIN 8.0(L) 14.0 - 18.0 g/dL 04/22/2025 12:18 AM [facility] HEMATOCRIT 26.3(L) 41.0 - 53.0 % 04/22/2025 12:18 AM DRESSMAKER GARMENT FITTER [facility] Blood Venipuncture / Unknown 04/22/2025 12:01 AM DRESSMAKER GARMENT FITTER 04/22/2025 12:13 AM DRESSMAKER GARMENT FITTER Gregorio Rogers MD HEMATOLOGY ORDERABLE S Final Result Performing Organization Address [facility]/ZIP Co de Phone Number [facility] CLIA # [id number] [address] [address] [place] [address] * (ABNORMAL) HEMOGLOBIN AND HEMATOCRIT (04/21/2025 6:13 PM DRESSMAKER GARMENT FITTER) HEMOGLOBIN 8.3(L) 14.0 - 18.0 g/dL 04/21/2025 6:44 PM DRESSMAKER GARMENT FITTER [facility] HEMATOCRIT 27.8(L) 41.0 - 53.0 % 04/21/2025 6:44 PM DRESSMAKER GARMENT FITTER [facility] Blood Venipuncture / Unknown 04/21/2025 6:13 PM DRESSMAKER GARMENT FITTER 04/21/2025 6:30 PM DRESSMAKER GARMENT FITTER Gregorio Rogers MD HEMATOLOGY ORDERABLE S Final Result Performing Organization Address [facility] de Phone Number [facility] CLIA # [id number] [address] [address] * (ABNORMAL) HEMOGLOBIN AND HEMATOCRIT (04/21/2025 12:49 PM DRESSMAKER GARMENT FITTER) HEMOGLOBIN 8.2(L) 14.0 - 18.0 g/dL 04/21/2025 12:54 PM DRESSMAKER GARMENT FITTER [facility] HEMATOCRIT 27.2(L) 41.0 - 53.0 % 04/21/2025 12:54 PM DRESSMAKER GARMENT FITTER [facility] Blood Venipuncture / Unknown 04/21/2025 12:49 PM DRESSMAKER GARMENT FITTER 04/21/2025 12:52 PM DRESSMAKER GARMENT FITTER us Gregorio Rogers MD HEMATOLOGY ORDERABLE S Final Result Performing Organization Address City/State/[facility] Co de Phone Number [facility] # [id number] [address] [facility] [place], [place] [id number] * US VENOUS DOPPLER LEG BILATERAL (04/21/2025 12:05 PM DRESSMAKER GARMENT FITTER) Anatomical Region Laterality Modality Lower Extremity Ultrasound 04/21/2025 10:2 9 AM DRESSMAKER GARMENT FITTER Narrative 04/26/2025 11:58 AM DRESSMAKER GARMENT FITTER [facility] Cardiovascular Services Noninvasive Vascular Laboratory [address] [place] [address] Noninvasive Vascular Lab Venous Exam Complete Lower Extremity Duplex Patient: Kristopher Leblanc Study ID: US VENOUS DOPPLE Gender: M : 02/28/1958 Age: 67 Room: Height: Weight: BSA: Pt status: Inpatient Study Date: 04/21/2025 Study Time: 10:29:04 AM BSA: Ordering: Maricruz Galvan Interpreting:Leon Mckeon Embroidery Operator: Nahomi Howell Indications: [place]. Summary Doppler venous [...] Center Vascular Lab is accredited with the [facility] Commission for the Accreditation of Vascular Laboratories (ICAVL) Prepared and Electronically Authenticated Leon Mckeon Confirmed 04/26/2025 11:58 Procedure Note Leon Mckeon MD - 04/26/2025 [facility] Cardiovascular Services Noninvasive Vascular Laboratory [address] [place] [id number] Noninvasive Vascular Lab Venous Exam Complete Lower Extremity Duplex Patient: Kristopher Leblanc Study ID: US VENOUS DOPPLE Gender: Jayleen : 02/28/1958 Age: 67 Room: Height: Weight: BSA: Pt status: Inpatient Study Date: 04/21/2025 Study Time: 10:29:04 AM BSA: Ordering: Maricruz Galvan Interpreting:Leon Mckeon Embroidery Operator: Nahomi Howell Indications: [place]. Summary Doppler venous [...] Result * MAGNESIUM LEVEL (04/21/2025 4:39 AM DRESSMAKER GARMENT FITTER) [facility] MAGNESIUM 1.9 1.6 - 2.4 mg/dL 04/21/2025 5:30 AM DRESSMAKER GARMENT FITTER [facility] Blood Venipuncture / Unknown 04/21/2025 4:39 AM DRESSMAKER GARMENT FITTER 04/21/2025 4:56 AM DRESSMAKER GARMENT FITTER Rishabh Reed MD CHEMISTRY ORDERABLES Final Result [facility] CLIA # [id number] [address] [place] [address] [place], [place] [address] * (ABNORMAL) BASIC METABOLIC PANEL (04/21/2025 4:39 AM DRESSMAKER GARMENT FITTER) [facility] SODIUM 134(L) 136 - 145 mmol/L 04/21/2025 5:30 AM [facility] POTASSIUM 3.9 3.5 - 5.1 mmol/L 04/21/2025 5:30 AM [facility] CHLORIDE 96(L) 98 - 107 mmol/L 04/21/2025 5:30 AM [facility] CO2 20(L) 22 - 29 mmol/L 04/21/2025 5:30 AM [facility] CALCIUM 10.3(H) 8.8 - 10.2 mg/dL 04/21/2025 5:30 AM [facility] BUN 101(H) 8 - 23 mg/dL 04/21/2025 5:30 AM [facility] CREATININE 3.10(H) 0.67 - 1.17 mg/dL 04/21/2025 5:30 AM [facility] GLUCOSE 192(H) 74 - 99 mg/dL 04/21/2025 5:30 AM [facility] GFR 21(L) >=60 mL/min/1. 73 sq meter 04/21/2025 5:30 AM [facility] Comment:eGFR calculated with 2020 CKD-EPI equation. Vegetarian diet, extremely high or low muscle mass, and may affect results. Cystatin C with Glomerular Filtration Rate is a suitable alternative for these patients. ANION GAP 18 9 - 20 mmol/L 04/21/2025 5:30 AM [facility] Blood Venipuncture / Unknown 04/21/2025 4:39 AM DRESSMAKER GARMENT FITTER 04/21/2025 4:56 AM DRESSMAKER GARMENT FITTER us Rishabh Reed MD CHEMISTRY ORDERABLES Final Result [facility] CLIA # [id number] [address] [address] * (ABNORMAL) CBC WITH DIFFERENTIAL (04/21/2025 4:39 AM DRESSMAKER GARMENT FITTER) Pathologist [facility] WBC 9.5 4.8 - 10.8 K/uL 04/21/2025 4:58 AM [facility] RBC 3.25(L) 4.60 - 6.20 M/uL 04/21/2025 4:58 AM [facility] HEMOGLOBIN 8.5(L) 14.0 - 18.0 g/dL 04/21/2025 4:58 AM [facility] HEMATOCRIT 28.8(L) 41.0 - 53.0 % 04/21/2025 4:58 AM [facility] MCV 88.6 84.0 - 103.0 fL 04/21/2025 4:58 AM [facility] MCH 26.2(L) 27.0 - 34.0 pg 04/21/2025 4:58 AM [facility] MCHC 29.5(L) 30.0 - 35.0 g/dL 04/21/2025 4:58 AM [facility] PLATELETS 227 140 - 440 K/uL 04/21/2025 4:58 AM [facility] MPV 9.7 8.9 - 12.8 fL 04/21/2025 4:58 AM [facility] RDW 19.2(H) 11.0 - 14.5 % 04/21/2025 4:58 AM [facility] RDW-STDEV 62.7(H) 37.0 - 54.0 fL 04/21/2025 4:58 AM [facility] NEUTROPHILS 80(H) 42 - 75 % 04/21/2025 4:58 AM [facility] LYMPHOCYTES 11(L) 24 - 44 % 04/21/2025 4:58 AM [facility] MONOCYTES 6 2 - 10 % 04/21/2025 4:58 AM [facility] EOSINOPHILS 2 0 - 7 % 04/21/2025 4:58 AM [facility] BASOPHILS 0 0 - 1 % 04/21/2025 4:58 AM [facility] IMMATURE GRANULOCYTES 1 0 - 2 % 04/21/2025 4:58 AM [facility] NEUTROPHIL ABSOLUTE 7.53 2.00 - 8.00 K/uL 04/21/2025 4:58 AM [facility] LYMPHOCYTE ABSOLUTE 1.03(L) 1.20 - 4.00 K/uL 04/21/2025 4:58 AM [facility] MONOCYTE ABSOLUTE 0.61(H) 0.10 - 0.60 K/uL 04/21/2025 4:58 AM [facility] EOSINOPHIL ABSOLUTE 0.19 0.00 - 0.70 K/uL 04/21/2025 4:58 AM [facility] BASOPHILS ABSOLUTE 0.03 0.00 - 0.20 K/uL 04/21/2025 4:58 AM [facility] IMMATURE GRANULOCYTES ABSOLUTE 0.09 0.00 - 0.10 K/uL 04/21/2025 4:58 AM [facility] SMEAR REVIEWED: NN - No Action Needed 04/21/2025 4:58 AM [facility] Blood Venipuncture / Unknown 04/21/2025 4:39 AM DRESSMAKER GARMENT FITTER 04/21/2025 4:50 AM DRESSMAKER GARMENT FITTER us Rishabh Reed MD HEMATOLOGY ORDERABLES Cristy l Result Performing Organization Address City/State/[facility] Co de Phone Number [facility] CLIA # [id number] [address] [place] [address] * (ABNORMAL) PTH INTACT (04/21/2025 4:39 AM DRESSMAKER GARMENT FITTER) PTH INTACT 151.4(H) 17.9 - 58.6 pg/mL 04/21/2025 5:30 AM [facility] Blood Venipuncture / Unknown 04/21/2025 4:39 AM DRESSMAKER GARMENT FITTER 04/21/2025 4:56 AM DRESSMAKER GARMENT FITTER Maricruz Galvan MD CHEMISTRY ORDERABLES Final R esult [facility] CLIA # [id number] [address] [place], [place] [address] * (ABNORMAL) HEMOGLOBIN AND HEMATOCRIT (04/20/2025 11:21 PM DRESSMAKER GARMENT FITTER) HEMOGLOBIN 9.0(L) 14.0 - 18.0 g/dL 04/20/2025 11:32 PM DRESSMAKER GARMENT FITTER [facility] HEMATOCRIT 29.2(L) 41.0 - 53.0 % 04/20/2025 11:32 PM DRESSMAKER GARMENT FITTER [facility] Blood Venipuncture / Unknown 04/20/2025 11:21 PM DRESSMAKER GARMENT FITTER 04/20/2025 11:27 PM DRESSMAKER GARMENT FITTER us Gregorio Rogers MD HEMATOLOGY ORDERABLE S Final Result Performing Organization Address [facility] Co de Phone Number [facility] CLIA # [id number] [address] [place], [place] [address] * (ABNORMAL) HEMOGLOBIN AND HEMATOCRIT (04/20/2025 6:29 PM DRESSMAKER GARMENT FITTER) HEMOGLOBIN 9.3(L) 14.0 - 18.0 g/dL 04/20/2025 6:50 PM DRESSMAKER GARMENT FITTER [facility] HEMATOCRIT 29.9(L) 41.0 - 53.0 % 04/20/2025 6:50 PM DRESSMAKER GARMENT FITTER [facility] Blood Venipuncture / Unknown 04/20/2025 6:29 PM DRESSMAKER GARMENT FITTER 04/20/2025 6:47 PM DRESSMAKER GARMENT FITTER Gregorio Rogers MD HEMATOLOGY ORDERABLE S Final Result Performing Organization Address City/[facility]/ZIP Co de Phone Number [facility] CLIA # [id number] [address] [place] [address] * (ABNORMAL) TROPONIN (04/20/2025 1:58 PM DRESSMAKER GARMENT FITTER) [facility] TROPONIN T, 5TH GEN 152(HH) <=15 ng/L 04/20/2025 5:37 PM DRESSMAKER GARMENT FITTER [facility] Blood Venipuncture / Unknown 04/20/2025 1:58 PM DRESSMAKER GARMENT FITTER 04/20/2025 2:27 PM DRESSMAKER GARMENT FITTER Narrative [facility] - 04/20/2025 5:37 PM DRESSMAKER GARMENT FITTER Troponin elevated. Maricruz Galvan MD CHEMISTRY ORDERABLES Final R esult [facility] CLIA # [id number] [address] [place] [address] * (ABNORMAL) FERRITIN (04/20/2025 1:58 PM DRESSMAKER GARMENT FITTER) [facility] FERRITIN 570.3(H) 30.0 - 400.0 ng/mL 04/20/2025 3:55 PM DRESSMAKER GARMENT FITTER [facility] Blood Venipuncture / Unknown 04/20/2025 1:58 PM DRESSMAKER GARMENT FITTER 04/20/2025 2:27 PM DRESSMAKER GARMENT FITTER Maricruz Galvan MD CHEMISTRY ORDERABLES Final R esult [facility] CLIA # [id number] [address] [address] * (ABNORMAL) IRON, TIBC, AND PERCENT SATURATION (04/20/2025 1:58 PM DRESSMAKER GARMENT FITTER) [facility] IRON 28(L) 59 - 158 ug/dL 04/20/2025 3:55 PM DRESSMAKER GARMENT FITTER [facility] TIBC 197(L) 250 - 450 ug/dL 04/20/2025 3:55 PM DRESSMAKER GARMENT FITTER [facility] IRON % SATURATION 14(L) 15 - 60 % 04/20/2025 3:55 PM DRESSMAKER GARMENT FITTER [facility] Blood Venipuncture / Unknown 04/20/2025 1:58 PM DRESSMAKER GARMENT FITTER 04/20/2025 2:27 PM DRESSMAKER GARMENT FITTER Maricruz Galvan MD CHEMISTRY ORDERABLES Final R esult Performing Organization Address City/[facility] Co de Phone Number [facility] CLIA # [id number] [address] [address] * (ABNORMAL) PTT (04/20/2025 1:58 PM DRESSMAKER GARMENT FITTER) Pathologist [facility] PTT 48.9(H) 24.8 - 37.2 seconds 04/20/2025 2:41 PM DRESSMAKER GARMENT FITTER [facility] Blood Venipuncture / Unknown 04/20/2025 1:58 PM DRESSMAKER GARMENT FITTER 04/20/2025 2:27 PM DRESSMAKER GARMENT FITTER Narrative [facility] - 04/20/2025 2:41 PM DRESSMAKER GARMENT FITTER Therapeutic Range: Hi-level PE/DVT heparin protocol 80.1 - 95.0 sec Lo-level PE/DVT heparin protocol 70.1 - 85.0 sec Cardiac Heparin Protocol 70.1 - 100.0 sec Maricruz Galvan MD HEMATOLOGY ORDERABLES Final Result Performing Organization Address [facility] Co de Phone Number [facility] CLIA # [id number] [address] [address] * UNFRACTIONATED HEPARIN MONITORING (04/20/2025 1:58 PM DRESSMAKER GARMENT FITTER) Pathologist [facility] ANTI-XA UNFRAC HEP <0.10 See Interpretation IU/mL 04/20/2025 2:51 PM DRESSMAKER GARMENT FITTER [facility] Blood Venipuncture / Unknown 04/20/2025 1:58 PM DRESSMAKER GARMENT FITTER 04/20/2025 2:27 PM DRESSMAKER GARMENT FITTER [facility] - 04/20/2025 2:51 PM DRESSMAKER GARMENT FITTER Therapeutic Range: PT/DVT Heparin Protocol 0.3 - 0.7 IU/ml Cardiac Heparin Protocol 0.3 - 0.6 IU/ml The reference range for this test is specific to the anticoagulant and is not appropriate for monitoring patients on a DOAC protocol. Maricruz Galvan MD HEMATOLOGY ORDERABLES Final Result [facility] CLIA # [id number] [address] [address] * (ABNORMAL) BASIC METABOLIC PANEL (04/20/2025 1:58 PM DRESSMAKER GARMENT FITTER) SODIUM 134(L) 136 - 145 mmol/L 04/20/2025 3:55 PM [facility] POTASSIUM 3.6 3.5 - 5.1 mmol/L 04/20/2025 3:55 PM [facility] CHLORIDE 95(L) 98 - 107 mmol/L 04/20/2025 3:55 PM [facility] CO2 21(L) 22 - 29 mmol/L 04/20/2025 3:55 PM [facility] CALCIUM 10.2 8.8 - 10.2 mg/dL 04/20/2025 3:55 PM [facility] BUN 97(H) 8 - 23 mg/dL 04/20/2025 3:55 PM [facility] CREATININE 2.89(H) 0.67 - 1.17 mg/dL 04/20/2025 3:55 PM [facility] GLUCOSE 108(H) 74 - 99 mg/dL 04/20/2025 3:55 PM [facility] GFR 23(L) >=60 mL/min/1. 73 sq meter 04/20/2025 3:55 PM [facility] Comment:eGFR calculated with 2020 CKD-EPI equation. Vegetarian diet, extremely high or low muscle mass, and may affect results. Cystatin C with Glomerular Filtration Rate is a suitable alternative for these patients. ANION GAP 18 9 - 20 mmol/L 04/20/2025 3:55 PM DRESSMAKER GARMENT FITTER [facility] Blood Venipuncture / Unknown 04/20/2025 1:58 PM DRESSMAKER GARMENT FITTER 04/20/2025 2:27 PM DRESSMAKER GARMENT FITTER Maricruz Galvan MD CHEMISTRY ORDERABLES Final R esult Performing Organization Address [facility] Co de Phone Number [facility] CLIA # [id number] [address] [facility] [place] [address] * BLOOD CULTURE (04/20/2025 10:53 AM DRESSMAKER GARMENT FITTER) BLOOD CULTURE No growth 04/25/2025 11:41 AM [facility] Blood (Peripheral) Venipuncture / Unknown 04/20/2025 10:53 AM DRESSMAKER GARMENT FITTER 04/20/2025 10:58 AM DRESSMAKER GARMENT FITTER Narrative [facility] - 04/25/2025 11:41 AM DRESSMAKER GARMENT FITTER Specimen processed with suboptimal blood volume collected. Maricruz Galvan MD MICROBIOLOGY - GENERAL ORDER SABAS Final Result Performing Organization Address [facility] de Phone Number [facility] CLIA # [id number] [address] [address] * (ABNORMAL) HEMOGLOBIN AND HEMATOCRIT (04/20/2025 10:52 AM DRESSMAKER GARMENT FITTER) HEMOGLOBIN 8.9(L) 14.0 - 18.0 g/dL 04/20/2025 11:02 AM [facility] HEMATOCRIT 29.7(L) 41.0 - 53.0 % 04/20/2025 11:02 AM [facility] Blood Venipuncture / Unknown 04/20/2025 10:52 AM DRESSMAKER GARMENT FITTER 04/20/2025 10:59 AM DRESSMAKER GARMENT FITTER Gregorio Rogers MD HEMATOLOGY ORDERABLE S Final Result Performing Organization Address [facility]/ZIP Co de Phone Number [facility] CLIA # [id number] [address] [address] * BLOOD CULTURE (04/20/2025 10:33 AM DRESSMAKER GARMENT FITTER) Pathologist [facility] BLOOD CULTURE No growth 04/25/2025 11:41 AM DRESSMAKER GARMENT FITTER [facility] Blood (Peripheral) Venipuncture / Unknown 04/20/2025 10:33 AM DRESSMAKER GARMENT FITTER 04/20/2025 10:59 AM DRESSMAKER GARMENT FITTER Pedro [facility] - 04/25/2025 11:41 AM DRESSMAKER GARMENT FITTER Specimen processed with suboptimal blood volume collected. Maricruz Galvan MD MICROBIOLOGY - GENERAL ORDER SABAS Final Result Performing Organization Address [facility] Co de Phone Number [facility] CLIA # [id number] [address] [address] * VITAMIN D 25 HYDROXY (04/20/2025 7:09 AM DRESSMAKER GARMENT FITTER) Pathologist [facility] VITAMIN D TOTAL (25OH) 36 30 - 100 ng/mL 04/20/2025 6:00 PM DRESSMAKER GARMENT FITTER [facility] Blood Venipuncture / Unknown 04/20/2025 7:09 AM DRESSMAKER GARMENT FITTER 04/20/2025 7:24 AM DRESSMAKER GARMENT FITTER Pedro [facility] - 04/20/2025 6:00 PM DRESSMAKER GARMENT FITTER Interpretive Data Chart: Deficient: 0 - 20 ng/mL Insufficient: 21 - 29 ng/mL Sufficient: 30 - 100 ng/mL Increased Risk of Hypercalciuria: >100 ng/ml Toxic: >150 ng/ml Maricruz Galvan MD CHEMISTRY ORDERABLES Final R esult Performing Organization Address [facility] Co de Phone Number [facility] CLIA # [id number] [address] [place] [address] * (ABNORMAL) TROPONIN 6 HR, 5TH GEN (04/20/2025 7:09 AM DRESSMAKER GARMENT FITTER) TROPONIN T, 6 HR 5TH GEN 147(HH) <=15 ng/L 04/20/2025 8:07 AM DRESSMAKER GARMENT FITTER [facility] [place] 6HR TROPONIN T % 6 See Interp. % 04/20/2025 8:07 AM DRESSMAKER GARMENT FITTER [facility] Blood Venipuncture / Unknown 04/20/2025 7:09 AM DRESSMAKER GARMENT FITTER 04/20/2025 7:24 AM DRESSMAKER GARMENT FITTER Narrative [facility] - 04/20/2025 8:07 AM DRESSMAKER GARMENT FITTER Troponin elevated. Delta not changing. Gregorio Rogers MD CHEMISTRY ORDERABLES Final Result Performing Organization Address [facility] Co de Phone Number [facility] CLIA # [id number] [address] [facility] [place] [address] * LACTIC ACID (04/20/2025 2:39 AM DRESSMAKER GARMENT FITTER) LACTIC ACID 0.9 <=2.0 mmol/L 04/20/2025 3:07 AM DRESSMAKER GARMENT FITTER [facility] Blood Venipuncture / Unknown 04/20/2025 2:39 AM DRESSMAKER GARMENT FITTER 04/20/2025 2:43 AM DRESSMAKER GARMENT FITTER Gregorio Rogers MD CHEMISTRY ORDERABLES Final Result Performing Organization Address [facility]/ZIP Co de Phone Number [facility] CLIA # [id number] [address] [place] [address] * EKG 12-LEAD (04/20/2025 2:30 AM DRESSMAKER GARMENT FITTER) 04/20/2025 2:30 AM DRESSMAKER GARMENT FITTER Narrative INTERFACE SYSTEM - 04/20/2025 11:29 AM DRESSMAKER GARMENT FITTER [address] [address] Test Date: 2025-04-20 Pat Name: KRISTOPHER LEBLANC Department: 12 Room: [address] [place] [address] Gender: Male Team Guide: [id number] : 1958-02-28 Requested By: Order Number: [id number] Reading MD: Tara Jiang Measurements Intervals Sterling Rate: 109 P: 0 RI: 0 QRS: 55 QRSD: 184 T: 226 QT: 350 QTc: 471 Interpretive Statements Atrial fibrillation with rapid ventricular response Left bundle branch block Abnormal ECG Electronically Signed On 04-20-2025 11:29:16 DRESSMAKER GARMENT FITTER by Tara Jiang Procedure Note Provider, Historical - 04/20/[address] [address] Test Date: 2025-04-20 Pat Name: KRISTOPHER LEBLANC Department: 12 Room: [address] [place] [address] Gender: Male Team Guide: [id number] : 1958-02-28 Requested By: Order Number: [id number] Reading JORGE Jiang Measurements Intervals [place] Rate: 109 P: 0 RI: 0 QRS: 55 QRSD: 184 T: 226 QT: 350 QTc: 471 Interpretive Statements Atrial fibrillation with rapid ventricular response Left bundle branch block Abnormal ECG Electronically Signed On 04-20-2025 11:29:16 DRESSMAKER GARMENT FITTER by Tara Jiang us Gregorio Rogers MD ECG ORDERABLES Cristy francois Result INTERFACE SYSTEM Refer to clinic/hospital department * (ABNORMAL) COMPREHENSIVE METABOLIC PANEL (04/20/2025 2:29 AM DRESSMAKER GARMENT FITTER) SODIUM 133(L) 136 - 145 mmol/L 04/20/2025 3:39 AM DRESSMAKER GARMENT FITTER [facility] POTASSIUM 3.2(L) 3.5 - 5.1 mmol/L 04/20/2025 3:39 AM [facility] CHLORIDE 95(L) 98 - 107 mmol/L 04/20/2025 3:39 AM [facility] CO2 22 22 - 29 mmol/L 04/20/2025 3:39 AM [facility] CALCIUM 10.5(H) 8.8 - 10.2 mg/dL 04/20/2025 3:39 AM [facility] BUN 97(H) 8 - 23 mg/dL 04/20/2025 3:39 AM [facility] CREATININE 2.66(H) 0.67 - 1.17 mg/dL 04/20/2025 3:39 AM [facility] GLUCOSE 103(H) 74 - 99 mg/dL 04/20/2025 3:39 AM [facility] TOTAL PROTEIN 7.0 6.4 - 8.3 g/dL 04/20/2025 3:39 AM [facility] ALBUMIN 3.6 3.5 - 5.2 g/dL 04/20/2025 3:39 AM [facility] BILIRUBIN TOTAL 0.5 0.0 - 1.0 mg/dL 04/20/2025 3:39 AM [facility] ALKALINE PHOSPHATASE 51 40 - 129 U/L 04/20/2025 3:39 AM [facility] AST 10 10 - 50 U/L 04/20/2025 3:39 AM [facility] ALT <5 <=50 U/L 04/20/2025 3:39 AM [facility] GFR 25(L) >=60 mL/min/1. 73 sq meter 04/20/2025 3:39 AM [facility] Comment:eGFR calculated with 2020 CKD-EPI equation. Vegetarian diet, extremely high or low muscle mass, and may affect results. Cystatin C with Glomerular Filtration Rate is a suitable alternative for these patients. ANION GAP 16 9 - 20 mmol/L 04/20/2025 3:39 AM [facility] Blood Venipuncture / Unknown 04/20/2025 2:29 AM [employer]ESS[employer]KER GARMENT [employer]TER 04/20/2025 2:36 AM [employer]KER G[employer]MENT [employer]TER Gregorio Rogers MD CHEMISTRY ORDERABLES Final Result [facility] CLIA # [id number] Critical access hospital [address] [address] [place] [address] * (ABNORMAL) CBC WITH DIFFERENTIAL (04/20/2025 2:29 AM DRESSMAKER GARMENT FITTER) Pathologist [facility] WBC 9.1 4.8 - 10.8 K/uL 04/20/2025 2:42 AM [facility] RBC 3.42(L) 4.60 - 6.20 M/uL 04/20/2025 2:42 AM [facility] HEMOGLOBIN 8.9(L) 14.0 - 18.0 g/dL 04/20/2025 2:42 AM [facility] HEMATOCRIT 29.0(L) 41.0 - 53.0 % 04/20/2025 2:42 AM [facility] MCV 84.8 84.0 - 103.0 fL 04/20/2025 2:42 AM [facility] MCH 26.0(L) 27.0 - 34.0 pg 04/20/2025 2:42 AM [facility] MCHC 30.7 30.0 - 35.0 g/dL 04/20/2025 2:42 AM [facility] PLATELETS 214 140 - 440 K/uL 04/20/2025 2:42 AM [facility] MPV 10.0 8.9 - 12.8 fL 04/20/2025 2:42 AM [facility] RDW 19.6(H) 11.0 - 14.5 % 04/20/2025 2:42 AM [facility] RDW-STDEV 60.7(H) 37.0 - 54.0 fL 04/20/2025 2:42 AM [facility] NEUTROPHILS 84(H) 42 - 75 % 04/20/2025 2:42 AM [facility] LYMPHOCYTES 7(L) 24 - 44 % 04/20/2025 2:42 AM [facility] MONOCYTES 7 2 - 10 % 04/20/2025 2:42 AM [facility] EOSINOPHILS 2 0 - 7 % 04/20/2025 2:42 AM [facility] BASOPHILS 0 0 - 1 % 04/20/2025 2:42 AM [facility] IMMATURE GRANULOCYTES 1 0 - 2 % 04/20/2025 2:42 AM [facility] NEUTROPHIL ABSOLUTE 7.64 2.00 - 8.00 K/uL 04/20/2025 2:42 AM [facility] LYMPHOCYTE ABSOLUTE 0.59(L) 1.20 - 4.00 K/uL 04/20/2025 2:42 AM [facility] MONOCYTE ABSOLUTE 0.59 0.10 - 0.60 K/uL 04/20/2025 2:42 AM [facility] EOSINOPHIL ABSOLUTE 0.16 0.00 - 0.70 K/uL 04/20/2025 2:42 AM [facility] BASOPHILS ABSOLUTE 0.03 0.00 - 0.20 K/uL 04/20/2025 2:42 AM [facility] IMMATURE GRANULOCYTES ABSOLUTE 0.07 0.00 - 0.10 K/uL 04/20/2025 2:42 AM [facility] SMEAR REVIEWED: NA - Not Applicable 04/20/2025 2:42 AM [facility] Blood Venipuncture / Unknown 04/20/2025 2:29 AM [employer]ESS[employer]KER GARMENT [employer]TER 04/20/2025 2:35 AM DRESSMAKER GARMENT FITTER us Gregorio Rogers MD HEMATOLOGY ORDERABLE S Final Result [facility] CLIA # [id number] [address] [facility] [place] [address] * (ABNORMAL) TROPONIN BASELINE, 5TH GEN (04/20/2025 2:29 AM DRESSMAKER GARMENT FITTER) Pathologist [facility] TROPONIN T, BASELINE 5TH GEN 139(HH) <=15 ng/L 04/20/2025 3:18 AM DRESSMAKER GARMENT FITTER [facility] Blood Venipuncture / Unknown 04/20/2025 2:29 AM DRESSMAKER GARMENT FITTER 04/20/2025 2:36 AM DRESSMAKER GARMENT FITTER Narrative [facility] - 04/20/2025 3:18 AM DRESSMAKER GARMENT FITTER Troponin elevated. Gregorio Rogers MD CHEMISTRY ORDERABLES Final Result [facility] CLIA # [id number] [address] [place] [address] * MAGNESIUM LEVEL (04/20/2025 2:29 AM DRESSMAKER GARMENT FITTER) [facility] MAGNESIUM 1.9 1.6 - 2.4 mg/dL 04/20/2025 3:39 AM DRESSMAKER GARMENT FITTER [facility] Blood Venipuncture / Unknown 04/20/2025 2:29 AM DRESSMAKER GARMENT FITTER 04/20/2025 2:36 AM DR[employer]MAKER GARMENT FITTER Gregorio Rogers MD CHEMISTRY ORDERABLES Final Result [facility] CLIA # [id number] [address] [place] [address] * T4 FREE (04/20/2025 2:29 AM DRESSMAKER GARMENT FITTER) [facility] T4 FREE 1.24 0.81 - 1.70 ng/dL 04/20/2025 3:18 AM [employer]KER GARMENT [employer]TER [facility] Blood Venipuncture / Unknown 04/20/2025 2:29 AM DRESSMAKER GARMENT FITTER 04/20/2025 2:36 AM DRESSMAKER GARMENT FITTER Gregorio Rogers MD CHEMISTRY ORDERABLES Final Result Performing Organization Address [facility] Co de Phone Number [facility] CLIA # [id number] [address] [address] [place] [address] * TSH (04/20/2025 2:29 AM DRESSMAKER GARMENT FITTER) TSH 2.92 0.27 - 4.20 uIU/mL 04/20/2025 3:17 AM DR[employer]MAKER GARMENT FITTER [facility] Blood Venipuncture / Unknown 04/20/2025 2:29 AM DRESSMAKER GARMENT FITTER 04/20/2025 2:36 AM DR[employer]MAKER GARMENT FITTER Gregorio Rogers MD CHEMISTRY ORDERABLES Final Result Performing Organization Address [facility] Co de Phone Number [facility] CLIA # [id number] [facility] [address] documented in this encounter Visit Diagnoses Not on filedocumented in this encounter Administered Medications Inactive Administered Medications - up to 3 most recent administrations Medication Order MAR Action Action Date Dose Rate Site acetaminophen (TYLENOL) tablet 650 mg 650 mg, Oral, EVERY 6 HOURS PRN, Starting on 04/20/25 at 0115, Until 04/29/25 at 1857, Other (See Comment), See admin instructions, Routine Given 04/28/2025 9:25 PM DRESSMAKER GARMENT FITTER 650 mg Given 04/27/2025 3:13 AM DRESSMAKER GARMENT FITTER 650 mg Given 04/25/2025 4:26 PM [employer]KER GARMENT FITTER 650 mg amiodarone (CORDARONE) tablet 400 mg 400 mg, Oral, TWO TIMES DAILY, First dose on Tu04/23/25 at 1230, Until Discontinued, Routine Given 04/29/2025 8:41 AM [employer]KER GARMENT [employer]TER 400 mg Given 04/28/2025 9:18 PM [employer]KER GARMENT FITTER 400 mg Given 04/28/2025 8:29 AM [employer]KER GARMENT FITTER 400 mg ammonium lactate (LAC-HYDRIN) 12 % lotion Topical, TWO TIMES DAILY, First dose on Sil 04/25/25 at 1315, Until Discontinued, Routine Given 04/29/2025 9:00 AM DRESSMAKER GARMENT FITTER Other (Comment) Given 04/28/2025 9:19 PM DRESSMAKER GARMENT FITTER Le g, Right Given 04/28/2025 8:33 AM DRESSMAKER GARMENT FITTER Ot her (Comment) apixaban (ELIQUIS) tablet 2.5 mg 2.5 mg, Oral, TWO TIMES DAILY, First dose on 04/28/25 at 1100, Until Discontinued, Routine, Indication: Non-valvular A Fib Given 04/29/2025 8:41 AM DRESS[employer]KER GARMENT FITTER 2.5 mg Given 04/28/2025 9:18 PM [employer]ESS[employer]KER GARMENT FITTER 2.5 mg Given 04/28/2025 10:47 AM DR[employer]MAKER GARMENT FITTER 2.5 mg glycine urologic solution 1.5 % irrigation INTRA-PROCEDURE PRN, Starting on 04/27/25 at 0920, Until 04/27/25 at 0936, Intra-op Given 04/27/2025 9:20 AM DRESSMAKER GARMENT FITTER 3,000 mL Operative Site ipratropium-albuteroL (DUONEB) 0.5 mg-3 mg(2.5 mg base)/3 mL inhalation solution 3 mL 3 mL, Inhalation, EVERY 4 HOURS PRN RESPIRATORY, Starting on Tu04/23/25 at 1146, Until 04/29/25 at 1857, Shortness of Breath, Routine lidocaine 2% jelly INTRA-PROCEDURE PRN, Starting on 04/27/25 at 0921, Until 04/27/25 at 0936, Routine, Intra-op Given 04/27/2025 9:21 AM [employer]ESS[employer] GARMENT FITTER 10 mL Opera tive Site metoprolol succinate (TOPROL XL) SR 24 hour tablet 25 mg 25 mg, Oral, DAILY, First dose on Tue04/24/25 at 0900, Until Discontinued, Routine Given 04/29/2025 8:41 AM DR[employer]MAKER GARMENT FITTER 25 mg Given 04/28/2025 8:30 AM DRESSMAKER GARMENT FITTER 25 mg Given 04/27/2025 12:49 PM [employer]MAKER GARMENT FITTER 25 mg oxyCODONE (ROXICODONE) tablet 5 mg 5 mg, Oral, EVERY 8 HOURS PRN, 6 doses, Starting on 04/27/25 at 1545, Until 04/29/25 at 1857, Pain (See admin instructions), Routine Given 04/27/2025 3:51 PM DRESSMAKER GARMENT FITTER 5 mg polyethylene glycol (MIRALAX) packet 17 Gram 17 Gram, Oral, DAILY, First dose on 04/20/25 at 1415, Until Discontinued, Routine Given 04/23/2025 10:41 AM DR[employer]MAKER GARMENT FITTER 17 Grams Given 04/22/2025 9:06 AM DRESSMAKER GARMENT FITTER 17 Grams Given 04/20/2025 4:48 PM [employer]MAKER GARMENT FITTER 17 Grams sennosides (SENOKOT) tablet 8.6 mg 8.6 mg, Oral, DAILY, First dose on 04/20/25 at 1415, Until Discontinued, Routine Given 04/27/2025 12:4 9 PM DRESS[employer]KER GARMENT FITTER 8.6 mg Given 04/23/2025 10:40 AM DRESSMAKER GARMENT FITTER 8.6 mg Given 04/22/2025 9:03 AM DRESSMAKER GARMENT FITTER 8.6 mg zinc OXIDE-cod liver oil (DESITIN) 40 % topical paste Topical, TWO TIMES DAILY, First dose on Sil 04/25/25 at 1315, Until Discontinued, Routine Given 04/28/2025 9:27 PM [employer]ESS[employer]KER G[employer]MENT FITTER Buttock, Right Given 04/28/2025 8:34 AM DRESSMAKER GARMENT FITTER Ot her (Comment) Given 04/27/2025 9:27 PM DRESSMAKER GARMENT FITTER Bi lateral buttocks documented in this encounter Active and Recently Administered Medications Times are shown in DRESSMAKER GARMENT FITTER. Scheduled Medication Order 04/27/2025 04/28/2025 04/29/2025 amiodarone [...] unit)2126 (Given - Provider: Vic Alexander RN) 0833 (Given - Provider: Neha Cheek RN)2118 (Given - Provider: Yennifer White LPN) 0900 (Given - Provider: DAX Dickerson - Comment: left lower leg) apixaban (ELIQUIS) tablet 2.5 mg 2.5 mg, Oral, TWO TIMES DAILY, First dose on Tue04/28/25 at 1100, Until Discontinued, Routine, Indication: Non-valvular A Fib 1047 (Given - Provider: Neha Cheek RN)211 (Given - Provider: Yennifer White LPN) 0841 [...] Provider: Neha Cheek RN)1323 (Stopped - Provider: Neha Cheek RN) 0829 (New Bag - Provider: Neha Cheek RN)0859 (Stopped - Provider: Neha Cheek RN) magnesium SULFATE in water 2 gram/50 mL (4 %) IVPB 2 Gram (COMPLETED) 2 Gram, IV, ONE TIME ONLY, 1 dose, On Tue04/28/25 at 1015, Routine 1048 (New Bag - [...] INSTRUCTIONS, Starting on 04/20/25 at 0115, Until 04/29/25 at 1857, Routine nitroglycerin (NITRO-BID) 2 % [...] Neha Cheek RN - Reason: Patient condition) 0900 (Refused - Provider: Neha Cheek RN) 0900 (Refused - Provider: DAX Dickerson) sennosides (SENOKOT) tablet 8.6 mg 8.6 mg, Oral, DAILY, First dose on 04/20/25 at 1415, Until Discontinued, Routine 1249 (Given - Provider: Neha Cheek RN) 0900 (Refused - Provider: Neha Cheek RN) 09 [...] re-bolus 0308 (New Bag - Provider: Vic Alexander, JANE)0842 (Continue from Pre-Op - Provider: Edi Morales CRNA)0945 (Rate Verify - Provider: Marlen Michael RN - Comment: Continued from OR)2128 (New Bag - Provider: Vic Alexander RN) 0826 (New Bag - Provider: Neha Cheek, RN)1000 (Stopped - Provider: Neha Cheek, RN - Comment: [Order ends at this time. Document the following action when infusion is complete: Stopped]) PRN Medication Order 04/27/2025 04/28/2025 04/29/2025 acetaminophen (TYLENOL) tablet 650 mg 650 mg, Oral, EVERY 6 HOURS PRN, Starting on 04/20/25 at 0115, Until 04/29/25 at 1857, Other (See Comment), See admin instructions, Routine 0313 (Given - Provider: Vic Alexander RN) 2124 (Given - Provider: Yennifer White LPN) fentaNYL (PF) (SUBLIMAZE) 50 mcg/mL injection 50 mcg (CANCELED) 50 mcg, IV, POST-PROCEDURE Q 3 MINUTES PRN, 4 doses, Starting on 04/27/25 at 0824, Until 04/27/25 at 1230, Pain, Pain Seveity 1-09/20, Routine, PACU 0949 (Given - Provider: Marlen Michael RN)1049 (Given - Provider: Marlen Michael, JANE) glycine urologic solution 1.5 % irrigation (CANCELED) INTRA-PROCEDURE PRN, Starting on 04/27/25 at 0920, Until 04/27/25 at 0936, Intra-op 0920 (Given - Provider: Rishabh Reed MD) ipratropium-albuteroL (DUONEB) 0.5 mg-3 mg(2.5 mg base)/3 mL inhalation solution 3 mL 3 mL, Inhalation, EVERY 4 HOURS PRN RESPIRATORY, Starting on Tu04/23/25 at 1146, Until 04/29/25 at 1857, Shortness [...]
--- OUTSIDE RECORDS SUMMARY | 2025-04-27 08:42 | XMS_ITS | Encounter Summary ---
Author Organization [facility] Address [address] [place] [address] Care Team Providers Care Auto Clutch Specialist Name Role Phone Unavailable Primary Care Provider Unavailabl e Reason for Visit * Auth/Cert (Routine) Specialty Diagnoses / Procedures Referred By Adonay t Referred To Contact Cardiology Diagnoses hematuria, A-fib w RVR Bijan Maravilla MD [address] [place] [phone] Phone: tel: fax: [address] [facility] [address] [place] [phone] Phone: tel: fax: Referral ID Status Reason Start Date Expiration Date Visits Re quested Visits Authorized [id number] 1 1 Encounter Details Date Type Department Care Team (Late st Contact Info) Description 04/27/2025 8:42 AM TERRITORY SALES MANAGER MEDICAL Anesthesia Event [facility] Operating Room [address] [place] [address] Shayan León MD [address] [place] [address] Edi Morales CRNA [address] [place] [address] Anesthesia Record Procedure Summary Procedure Name Responsible Anesthesiologist Anesthesia Start Time Anesthesia Stop Time CYSTOURETHROSCOPY BLADDER FULGURATION (Bladder) Shayan León MD 04/27/25 0842 04/27/25 0939 Events Date Time Event Comment 04/27/2025 0827 0841 In Room This event disp lays the In Room time documented in the Surgical Log. Deleting this event will not remove it from the log but will remove it from the Grid and Graph timeline. 0842 AN Equip Check Anesthesia eq uipment and materials checked in accordance with local policy. 0842 An Start 0842 An Start Data 0853 Pre-Induction Immediate pre- induction anesthetic assessment performed. Vital signs as noted on graphic. 0857 An Induction 0859 An Intubation 0901 Anesthesia Ready 0913 Procedure Start This event d isplays the Procedure Start time documented in the Surgical Log. Deleting this event will not remove it from the log but will remove it from the Grid and Graph timeline. 0925 Procedure Stop This event di splays the Procedure Stop time documented in the Surgical Log. Deleting this event will not remove it from the log but will remove it from the Grid and Graph timeline. 0930 An Extubation Emergence unev entful Awake, spontaneous respirations. Adequate muscle strength demonstrated Adequate tidal volume. Orapharynx suctioned. Extubated with positive pressure ventilation. 0932 an stop data 0933 Out of Room This event disp lays the Out of Room time documented in the Surgical Log. Deleting this event will not remove it from the log but will remove it from the Grid and Graph timeline. 0939 An Stop 0939 Hand-off to Receiving Clinic sharron Meddulce Name Total heparin in 0.45% NaCl 25,000 unit/250 mL infusion 2,422.5 Units fentaNYL (SUBLIMAZE) PF 50 mcg/mL injection 100 mcg rocuronium (ZEMURON) 10mg/mL injection 5 0 mg sugammadex (BRIDION) 100 mg/mL injection 200 mg phenylephrine (CHARANJIT-SYNEPHRIN E) 10 mg/mL injection 300 mcg lidocaine (XYLOCAINE) 2% injection 100 m g dexamethasone (DECADRON) 4 mg/mL injecti on 4 mg etomidate (AMIDATE) 2 mg/mL injection 9 mg cefTRIAXone (ROCEPHIN) 2,000 mg in sodium chloride 0.9% 50 mL IVPB (MBP) 2,000 mg sodium chloride 0.9% infusion 0 mL * Agents Name Sevoflurane % Sevoflurane O2 N2O Inspired N2O O2 * Blood No blood administrations on file. Lines, Drains, and Airways Type Details Placement Removal Wound 04/22/25; 0745; urethral meatus; Surgical 04/22/25 0745 by Anjali Plaza, monogram machine operator 04/24/25; 1428; Yes; Bilateral; gluteal; Irritant Con; Moisture Rel; N 04/24/25 1428 by Radha Healy, RN PICC Triple Lumen Orientation: Right: 04/20/25 0000 by 04/29/25 1436 by Martha Escobar GN Indwelling Urethral Catheter 04/20/25; Indwelling triple lumen catheter; in place; 04/27/25; 0907 04/20/25 0000 by 04/27/25 0907 by Mary Kate Chau RN Peripheral IV Orientation: Posteri or, Right; Location: Wrist; Device: Angiocath 04/22/25 0000 by 04/29/25 1436 by Martha Escobar GN Endotracheal Airway Type: ETT; Size: 8; Attempts: 1; Verification: Auscultated bilateral breath sounds, Equal chest movement, Continuous waveform capnography 04/27/25 0859 by Edi Morales CRNA 04/27/25 0930 by Edi Morales CRNA Indwelling Urethral Catheter 04/27/25; 0917 (inserted by Dr Reed); Indwelling triple lumen catheter; 20 Fr; inserted; 1; 10; 10; 04/28/25; 1110 04/27/25 0917 by Mary Kate Chau RN 04/28/25 1110 by Neha Cheek RN ART Line Orientation: Left:; Location: radial artery; Size (Ga): 20 Ga 04/27/25 0938 by Shayan León MD 04/27/25 1048 by Marlen Michael RN documented in this encounter Social History Tobacco Use Types Packs/Day Years Used Date Smoking Tobacco: Never Smokeless Tobacco: Never Alcohol Use Standard Drinks/Week Comments Not Currently [...] worry about transportation for future doctor visits, hot die picker medication, etc.? No 2024 Housing Stability Answer [...] on file Legal Sex Male 10:33 AM TERRITORY SALES MANAGER MEDICAL Gender Identity Not on file Sexual Orientation Not on file documented as of this encounter OR Notes * Anesthesia Postprocedure Evaluation - Shayan León MD - 04/27/2025 1:06 PM CST Post Anesthesia Evaluation Vitals: Vitals Value Taken Time BP 116/75 04/27/25 10:55 Temp 36.6 ??C 04/27/25 10:55 Resp 16 04/27/25 11:05 SpO2 93 % 04/27/25 11:05 Pulse 204 04/27/25 11:05 Heart Rate 103 bpm 04/27/25 11:05 Pain Rating: Pain Rating: Rest: 7 (04/27/25 1049) Pain Rating: Activity: 10 (04/27/25 0949) Presence of Pain: denies pain/discomfort (04/27/25 104) Anesthesia Post Evaluation Patient participation: patient was able to participate in the post op evaluation Level of consciousness: 0 = alert, responsive, answers simple questions appropriately, able to perform simple tasks Pain management: adequate Airway patency: patent Nausea or Vomiting: none Cardiovascular status: regular rate and rhythm Respiratory status: no respiratory symptoms Hydration status: well hydrated No notable events documented. Shayan León MD ITORY SALES MANAGER MEDICAL * Anesthesia Handoff - Edi Morales CRNA - 04/27/2025 9:39 AM CST Post-Anesthetic transfer of care report elements to appropriate post-anesthesia recovery environment completed in accordance with procedure. I completed my handoff to the receiving nurse during which we: 1. Identified the patient 2. Identified the responsible provider 3. Reviewed the pertinent medical history 4. Discussed the surgical course 5. Reviewed intra-op anesthesia management and issues during anesthesia 6. Set expectations for post-procedure period 7. Orders as necessary and appropriate for continuation of care are present in Epic. 8. Allowed opportunity for questions and acknowledgement of understanding. Vital Signs: Vitals Value Taken Time BP 116/61 04/27/25 09:36 Temp Resp 20 04/27/25 09:37 SpO2 99 % 04/27/25 09:37 Pulse 105 04/27/25 09:37 Heart Rate 106 bpm 04/27/25 09:37 Vitals shown include unfiled device data. Report given to RN. VSS. See Rn note for VS. 9:39 AM Edi Morales CRNA ITORY SALES MANAGER MEDICAL * Anesthesia Procedure Notes - Shayan León MD - 04/27/2025 9:38 AM TERRITORY SALES MANAGER MEDICAL Associated Order(s): Arterial Line Insertion Arterial Line Insertion Patient location during procedure: OR Staffing Authorized by: Shayan León MD Performed by: Shayan León MD time out called Patient was prepped and draped in usual sterile fashion Indications: hemodynamic monitoring Hand hygiene performed prior to procedure Sterile Barriers: gloves, mask and cap Preparation: skin prepped with alcohol Skin prep agent dried: skin prep agent completely dried prior to procedure Patient position: flat Location: left radial Catheter type: radial kit Catheter size: 20 G [place] Identification: palpation technique Number of attempts: 1 Successful placement: yes Procedure uneventful Post-procedure: dressing applied and line secured ITORY SALES MANAGER MEDICAL * Anesthesia Procedure Notes - Edi Morales CRNA - 04/27/2025 9:08 AM TERRITORY SALES MANAGER MEDICAL Associated Order(s): Airway Airway Date/Time: 04/27/2025 8:59 AM Location: OR Plan: routine intubation Patient Identity Confirmed by: Verbally with patient and armband Staffing Performed: PRINTING MACHINIST/CAA Authorized by: Shayan León MD Performed by: Edi Morales CRNA Indications and Patient Condition: Indications for Airway Management: Anesthesia Sedation Level: general anesthesia Preoxygenated: yes Patient Position: Sniffing Mask Difficulty Assessment: 2 - vent by mask + OA or adjuvant +/- NMBA Oral Airway: 100mm Plan to extubate at end of case: Yes Final Airway Details: Final Airway Type: Endotracheal airway ETT Cuffed: Yes Cuff Volume (mL): 5 Technique Used for Successful ETT Placement: Direct laryngoscopy Devices/Methods Used in Placement: Cricoid pressure and intubating stylet Blade Type: curved blade Blade Size: 3 Insertion Site: Oral ETT Size (mm): 8.0 Measured from: Teeth ETT to Teeth (cm): 25 Tube secured with: Tape Placement Verified by: auscultation, end tidal CO2 and chest rise Cormack-Lehane Classification: Grade IIa - partial view of glottis Number of Attempts at Approach: 1 Additional Procedure Information: atraumatic and dentition unchanged ITORY SALES MANAGER MEDICAL * Anesthesia Preprocedure Evaluation - Shayan León MD - 04/27/2025 8:27 AM CST Relevant Problems CARDIOVASCULAR (+) Atrial fibrillation with rapid ventricular response (CMS/HCC) RENAL (+) CHRIS (acute kidney injury) Anesthesia Evaluation Anesthesia Plan ASA Final: 4 General Preanesthesia Evaluation Kristopher Jesus is a 67 y.o. male Date: 04/27/2025 Time: 8:27 AM Interview: Preop Discussed with: Patient. Patient is NPO. GERD: Not clinically significant. Preoperative Diagnosis @ORPREDX@ Scheduled Procedure CYSTOURETHROSCOPY BLADDER FULGURATION Allergies Allergen Reactions Penicillins Unknown No past medical history on file. No past surgical history on file. No current facility-administered medications on file prior to encounter. No current outpatient medications on file prior to encounter. Physical Exam: Airway Class: II (soft palate, uvula, fauces visible) Dentition/Gums: intact Pulmonary: Clear to auscultation bilaterally, no wheezes or crackles. Cardiac: Irregularly irregular rate and rhythm, Normal S1, S2. Pertinent lab: Results for orders placed or performed during the hospital encounter of 04/20/25 (from the past 24 hours) HEMOGLOBIN AND HEMATOCRIT Result Value Ref Range HEMOGLOBIN 8.3 (L) 14.0 - 18.0 g/dL HEMATOCRIT 27.9 (L) 41.0 - 53.0 % UNFRACTIONATED HEPARIN MONITORING Result Value Ref Range ANTI-XA UNFRAC HEP 0.35 See Interpretation IU/mL UNFRACTIONATED HEPARIN MONITORING Result Value Ref Range ANTI-XA UNFRAC HEP 0.18 See Interpretation IU/mL HEMOGLOBIN AND HEMATOCRIT Result Value Ref Range HEMOGLOBIN 8.7 (L) 14.0 - 18.0 g/dL HEMATOCRIT 28.6 (L) 41.0 - 53.0 % UNFRACTIONATED HEPARIN MONITORING Result Value Ref Range ANTI-XA UNFRAC HEP 0.49 See Interpretation IU/mL HEMOGLOBIN AND HEMATOCRIT Result Value Ref Range HEMOGLOBIN 8.3 (L) 14.0 - 18.0 g/dL HEMATOCRIT 26.9 (L) 41.0 - 53.0 % CBC WITH DIFFERENTIAL Result Value Ref Range WBC 6.8 4.8 - 10.8 K/uL RBC 3.15 (L) 4.60 - 6.20 M/uL HEMOGLOBIN 8.2 (L) 14.0 - 18.0 g/dL HEMATOCRIT 27.5 (L) 41.0 - 53.0 % MCV 87.3 84.0 - 103.0 fL MCH 26.0 (L) 27.0 - 34.0 pg MCHC 29.8 (L) 30.0 - 35.0 g/dL PLATELETS 195 140 - 440 K/uL MPV 9.7 8.9 - 12.8 fL RDW 19.6 (H) 11.0 - 14.5 % RDW-STDEV 62.0 (H) 37.0 - 54.0 fL NEUTROPHILS 76 (H) 42 - 75 % LYMPHOCYTES 13 (L) 24 - 44 % MONOCYTES 5 2 - 10 % EOSINOPHILS 4 0 - 7 % BASOPHILS 0 0 - 1 % IMMATURE GRANULOCYTES 2 0 - 2 % NEUTROPHIL ABSOLUTE 5.20 2.00 - 8.00 K/uL LYMPHOCYTE ABSOLUTE 0.88 (L) 1.20 - 4.00 K/uL MONOCYTE ABSOLUTE 0.35 0.10 - 0.60 K/uL EOSINOPHIL ABSOLUTE 0.24 0.00 - 0.70 K/uL BASOPHILS ABSOLUTE 0.03 0.00 - 0.20 K/uL IMMATURE GRANULOCYTES ABSOLUTE 0.13 (H) 0.00 - 0.10 K/uL SMEAR REVIEWED: NA - Not Applicable BASIC METABOLIC PANEL Result Value Ref Range SODIUM 137 136 - 145 mmol/L POTASSIUM 4.1 3.5 - 5.1 mmol/L CHLORIDE 101 98 - 107 mmol/L CO2 20 (L) 22 - 29 mmol/L CALCIUM 11.0 (H) 8.8 - 10.2 mg/dL BUN 45 (H) 8 - 23 mg/dL CREATININE 1.48 (H) 0.67 - 1.17 mg/dL GLUCOSE 75 74 - 99 mg/dL GFR 51 (L) >=60 mL/min/1.73 sq meter ANION GAP 16 9 - 20 mmol/L MAGNESIUM LEVEL Result Value Ref Range MAGNESIUM 1.6 1.6 - 2.4 mg/dL UNFRACTIONATED HEPARIN MONITORING Result Value Ref Range ANTI-XA UNFRAC HEP 0.40 See Interpretation IU/mL The anesthesia care team model was discussed. The risks and benefits of the proposed anesthetic have been discussed with patient. Risks included but were not limited to aspiration, airway/cardiac complications, medication/anesthesia reactions. Anesthesia guideline orders initiated. All questions were answered and understanding was expressed. Monitors: Standard ASA monitors Shayan León MD ITORY SALES MANAGER MEDICAL documented in this encounter Plan of Treatment Scheduled Procedures Name Priority Associated Diagnoses Date/Ti me CYSTOURETHROSCOPY BLADDER FULGURATION n/a 04/23/2025 1:40 PM TERRITORY SALES MANAGER MEDICAL documented as of this encounter Procedures Procedure Name Priority Date/Time Associated Diagnosis Comments DC ANES INSERT CATH, ART, PERCUT, SHORTTERM Routine 04/27/2025 9:38 AM TERRITORY SALES MANAGER MEDICAL DC ANES INSERT ENDOTRACHEAL AIRWAY Routine 04/27/2025 8:59 AM TERRITORY SALES MANAGER MEDICAL documented in this encounter Results * DC ANES INSERT CATH, ART, PERCUT, SHORTTERM (04/27/2025 9:38 AM TERRITORY SALES MANAGER MEDICAL) Narrative Shayan León MD - 04/27/2025 9:38 AM TERRITORY SALES MANAGER MEDICAL Shayan León MD 04/27/2025 9:38 AM Arterial Line Insertion Patient location during procedure: OR Staffing Authorized by: Shayan León MD Performed by: Shayan León MD time out called Patient was prepped and draped in usual sterile fashion Indications: hemodynamic monitoring Hand hygiene performed prior to procedure Sterile Barriers: gloves, mask and cap Preparation: skin prepped with alcohol Skin prep agent dried: skin prep agent completely dried prior to procedure Patient position: flat Location: left radial Catheter type: radial kit Catheter size: 20 G [place] Identification: palpation technique Number of attempts: 1 Successful placement: yes Procedure uneventful Post-procedure: dressing applied and line secured Shayan León MD PROCEDURE/MINOR SURGICAL O RDERABLES Final Result * DC ANES INSERT ENDOTRACHEAL AIRWAY (04/27/2025 8:59 AM TERRITORY SALES MANAGER MEDICAL) Narrative Edi Morales CRNA - 04/27/2025 8:59 AM TERRITORY SALES MANAGER MEDICAL Edi Morales CRNA 04/27/2025 9:08 AM Airway Date/Time: 04/27/2025 8:59 AM Location: OR Plan: routine intubation Patient Identity Confirmed by: Verbally with patient and armband Staffing Performed: PRINTING MACHINIST/CAA Authorized by: Shayan León MD Performed by: Edi Morales CRNA Indications and Patient Condition: Indications for Airway Management: Anesthesia Sedation Level: general anesthesia Preoxygenated: yes Patient Position: Sniffing Mask Difficulty Assessment: 2 - vent by mask + OA or adjuvant +/- NMBA Oral Airway: 100mm Plan to extubate at end of case: Yes Final Airway Details: Final Airway Type: Endotracheal airway ETT Cuffed: Yes Cuff Volume (mL): 5 Technique Used for Successful ETT Placement: Direct laryngoscopy Devices/Methods Used in Placement: Cricoid pressure and intubating stylet Blade Type: curved blade Blade Size: 3 Insertion Site: Oral ETT Size (mm): 8.0 Measured from: Teeth ETT to Teeth (cm): 25 Tube secured with: Tape Placement Verified by: auscultation, end tidal CO2 and chest rise Cormack-Lehane Classification: Grade IIa - partial view of glottis Number of Attempts at Approach: 1 Additional Procedure Information: atraumatic and dentition unchanged Shayan León MD PROCEDURE/MINOR SURGICAL O RDERABLES Final Result documented in this encounter Visit Diagnoses Not on filedocumented in this encounter Administered Medications Inactive Administered Medications - up to 3 most recent administrations Medication Order MAR Action Action Date Dose Rate Site cefTRIAXone (ROCEPHIN) 2,000 mg in sodium chloride 0.9% 50 mL IVPB (MBP) 2,000 mg, IV, DAILY, First dose on 04/21/25 at 0900, Until Discontinued, Routine, Antibiotic Indication: Urinary Tract Infection(UTI) / Infection New Bag 04/28/2025 8:29 AM TERRITORY SALES MANAGER MEDICAL 2,000 mg 118 mL/hr New Bag 04/27/2025 12:53 PM TERRITORY SALES MANAGER MEDICAL 2,000 mg 118 mL/hr Bolus 04/27/2025 9:09 AM TERRITORY SALES MANAGER MEDICAL 2,000 mg dexAMETHasone (DECADRON) injection IV, INTRA-PROCEDURE PRN, Starting on 04/27/25 at 0905, Until 04/27/25 at 0939, Routine, Anesthesia Intra-op Given 04/27/2025 9:05 AM TERRITORY SALES MANAGER MEDICAL 4 mg etomidate (AMIDATE) injection IV, INTRA-PROCEDURE PRN, Starting on 04/27/25 at 0857, Until 04/27/25 at 0939, Routine, Anesthesia Intra-op Given 04/27/2025 8:57 AM TERRITORY SALES MANAGER MEDICAL 9 mg fentaNYL (PF) (SUBLIMAZE) 50 mcg/mL injection IV, INTRA-PROCEDURE PRN, Starting on 04/27/25 at 0904, Until 04/27/25 at 0939, Routine, Anesthesia Intra-op Given 04/27/2025 9:13 AM TERRITORY SALES MANAGER MEDICAL 50 mcg Given 04/27/2025 9:04 AM TERRITORY SALES MANAGER MEDICAL 50 mcg heparin in 0.45% NaCl 25,000 unit/250 mL infusion 25 Units/kg/hr 102 kg Adjusted weight (25.5 mL/hr), IV, TITRATE, Starting on 04/20/25 at 1430, Until 04/28/25 at 1000, Indication: A Fib, Dosing by: PER PROTOCOL: Delegate to facility protocol per indication, Re-bolus within Protocol? Yes, allow re-bolus New Bag 04/28/2025 8:26 AM TERRITORY SALES MANAGER MEDICAL 25 Units/kg/hr 25.5 mL/h r New Bag 04/27/2025 9:28 PM TERRITORY SALES MANAGER MEDICAL 25 Units/kg/hr 25.5 mL/h r Rate Verify 04/27/2025 9:45 AM TERRITORY SALES MANAGER MEDICAL 25 Units/kg/hr 25.5 mL/ hr lidocaine 2 % (XYLOCAINE) injection IV, INTRA-PROCEDURE PRN, Starting on 04/27/25 at 0857, Until 04/27/25 at 0939, Routine, Anesthesia Intra-op Given 04/27/2025 8:57 AM TERRITORY SALES MANAGER MEDICAL 100 mg phenylephrine injection IV, INTRA-PROCEDURE PRN, Starting on 04/27/25 at 0857, Until 04/27/25 at 0939, Routine, Anesthesia Intra-op Given 04/27/2025 9:24 AM TERRITORY SALES MANAGER MEDICAL 100 mcg Given 04/27/2025 9:20 AM TERRITORY SALES MANAGER MEDICAL 100 mcg Given 04/27/2025 8:57 AM TERRITORY SALES MANAGER MEDICAL 100 mcg rocuronium injection IV, INTRA-PROCEDURE PRN, Starting on 04/27/25 at 0857, Until 04/27/25 at 0939, Routine, Anesthesia Intra-op Given 04/27/2025 8:57 AM TERRITORY SALES MANAGER MEDICAL 50 mg sodium chloride 0.9 % infusion IV, INTRA-PROCEDURE CONTINUOUS PRN, Starting on 04/27/25 at 0849, Until 04/27/25 at 0939, Routine, Anesthesia Intra-op New Bag 04/27/2025 8:49 AM TERRITORY SALES MANAGER MEDICAL sugammadex (BRIDION) 100 mg/mL injection IV, INTRA-PROCEDURE PRN, Starting on 04/27/25 at 0924, Until 04/27/25 at 0939, Routine, Anesthesia Intra-op Given 04/27/2025 9:24 AM TERRITORY SALES MANAGER MEDICAL 200 mg documented in this encounter
[2025-04-30] VITALS (16 sets, daily range): BP systolic 82–144; BP diastolic 56–110; PULSE 95–119; RESP 17–18; TEMP 37; O2SAT 91–97; BMI 41.8
--- NOTE | 2025-04-30 02:41 | ECG_ITS ---
[facility] Date: 2025-04-30 Pat Name: Kristopher Jesus Department: Room: Gender: Male Automotive Product Engineer: : [id number] Requested By: Brent Samuel Order Number: [id number] Hamzah MD: Carly Mancia M.D. Measurements Intervals [place] Rate: 116 P: 0 CO: 0 QRS: 46 QRSD: 178 T: 0 QT: 278 QTc: 386 Interpretive Statements ATRIAL FIBRILLATION WITH RAPID VENTRICULAR RESPONSE LEFT BUNDLE BRANCH BLOCK [120+ ms QRS DURATION, 80+ ms Q/S IN V1/V2, 85+ ms R IN I/aVL/V5/V6] Compared to ECG 04/19/2025 15:56:12 Ventricular premature complex(es) no longer present Aberrant conduction of supraventricular beat(s) no longer present Electronically Signed On 05-01-2025 08:53:56 DIGITAL RETOUCHER by Carly Mancia M.D. [id number] [id number]
--- OUTSIDE RECORDS SUMMARY | 2025-04-30 02:46 | XMS_ITS | Encounter Summary ---
Author Organization [facility] Address [address] [place] [address] Care Team Providers Care Screen Roller Name Role Phone Unavailable Primary Care Provider Unavailabl e Encounter Details Date Type Department Care Team (Late st Contact Info) Description 04/23/2025 External Device Data [place] ABSTRACTION Provider, Abstract NO ADDRESS ON FILE Social History Tobacco Use Types Packs/Day Years [...] worry about transportation for future doctor visits, clam picker medication, etc.? No 2024 Housing Stability [...] on file Legal Sex Male 10:33 AM MANAGER TRADE Gender Identity Not on file Sexual Orientation Not on file documented as of this encounter Plan of Treatment Scheduled Procedures Name Priority Associated Diagnoses Date/Ti nj CYSTOURETHROSCOPY BLADDER FULGURATION n/a 04/23/2025 1:40 PM MANAGER TRADE documented as of this encounter Visit Diagnoses Not on filedocumented in this encounter
--- OUTSIDE RECORDS SUMMARY | 2025-04-30 02:48 | XMS_ITS | Encounter Summary ---
Author Organization [facility] Address [address] [place] [address] Care Team Providers Care Anchorman Name Role Phone Unavailable Primary Care Provider [...] worry about transportation for future doctor visits, apple picking supervisor medication, etc.? No 2024 Housing Stability Answer [...] on file Legal Sex Male 10:33 AM GOLD FRAME ASSEMBLER Gender Identity Not on file Sexual Orientation Not on file documented as of this encounter Plan of Treatment Scheduled Procedures Name Priority Associated Diagnoses Date/Ti ny CYSTOURETHROSCOPY BLADDER FULGURATION n/a 04/23/2025 1:40 PM GOLD FRAME ASSEMBLER documented as of this encounter Visit Diagnoses Not on filedocumented in this encounter
--- OUTSIDE RECORDS SUMMARY | 2025-04-30 02:48 | XMS_ITS | Encounter Summary ---
Author Organization [facility] Address [address] [place] [address] Care Team Providers Care Test Worker Name Role Phone Unavailable Primary Care Provider [...] worry about transportation for future doctor visits, cloth picker medication, etc.? No 2024 Housing Stability [...] on file Legal Sex Male 10:33 AM DIAL POLISHER Gender Identity Not on file Sexual Orientation Not on file documented as of this encounter Plan of Treatment Scheduled Procedures Name Priority Associated Diagnoses Date/Ti nc CYSTOURETHROSCOPY BLADDER FULGURATION n/a 04/23/2025 1:40 PM DIAL POLISHER documented as of this encounter Visit Diagnoses Not on filedocumented in this encounter
--- OUTSIDE RECORDS SUMMARY | 2025-04-30 02:49 | XMS_ITS | Clinical Summary ---
Author Organization [facility] Address [address] [place] [address] Care Team Providers Care Pipe Buffer Name Role Phone Unavailable Primary Care Provider Unavailabl e Allergies Active Allergy Reactions Criticality Noted Date Comments Penicillins Unknown 04/24/2025 Medications acetaminophen (TYLENOL) 325 mg tablet Take 2 Tablets (650 mg) by mouth every 6 hours as needed for Other (See Comment) (See admin instructions ). 04/29/2025 Active amiodarone (CORDARONE) 400 mg Tablet Take 1 Tablet (400 mg) by mouth daily. 04/29/2025 Active apixaban (ELIQUIS) 2.5 mg tablet Take 1 Tablet (2.5 mg) by mouth 2 times daily. 04/29/2025 Active metoprolol succinate (TOPROL XL) 25 mg Extended Release 24 hour tablet Take 1 Tablet (25 mg) by mouth daily. 04/30/2025 Active polyethylene glycol (MIRALAX) 17 gram Powder in Packet Take 1 Packet (17 Grams) by mouth daily. 04/30/2025 Active sennosides (SENOKOT) 8.6 mg tablet Take 1 Tablet (8.6 mg) by mouth daily. 04/30/2025 Active Active Problems Problem Noted Date Diagnosed Date Hyperparathyroidism 04/21/2025 Bilateral lower extremity edema 04/21/2025 Elevated troponin 04/21/2025 Atrial fibrillation with rapid ventricular respo nse 04/20/2025 CHRIS (acute kidney injury) 04/20/2025 Hematuria 04/20/2025 HFrEF (heart failure with reduced ejection fract ion) 04/20/2025 Encounters Date Type Department Care Team Description 04/27/2025 8:42 AM CASTING FINISHER Anesthesia Event [facility] Operating Room [address] [place] [address] Shayan León MD Davidyuk, Roman, CRNA 04/27/2025 8:16 AM CASTING FINISHER - 04/27/2025 9:31 AM CASTING FINISHER Surgery [facility] Operating Room [address] [place] [address] Rishabh Reed MD CYSTOURETHROSCOPY BLADDER FULGURATION 04/26/2025 Telephone [facility] [address] [facility] [address] [place] [phone] Bere Guzman RN Procedure 04/23/2025 External Device Data STL ABSTRACTION Provider, Abstract 04/23/2025 External Device Data STL ABSTRACTION Provider, Abstract 04/23/2025 External Device Data STL ABSTRACTION Provider, Abstract 04/22/2025 Surgery [facility] Operating Room [address] [place] [phone] Rishabh Reed MD Not Performed CASE CANCELLED 04/20/2025 1:00 AM CASTING FINISHER - 04/29/2025 4:47 PM CASTING FINISHER Hospital Encounter [facility] [address] Cardiac [address] [place] [phone] Bijan Maravilla MD Elgayesh, MD Cole Hassan Christina, MD Khan, Amina, MD Sohail, Carlos Carroll MD Atrial fibrillation with rapid ventricular response ([facility]/H[facility]) Discharge Disposition: Intermediate Care Facility 04/20/2025 Travel from Last 3 Months Social History Tobacco Use Types Packs/Day Years [...] worry about transportation for future doctor visits, 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 No 2024 Housing Stability Answer [...] on file Legal Sex Male 10:33 AM CASTING FINISHER Gender Identity Not on file Sexual Orientation Not on file Last Filed Vital Signs Vital Sign Reading Time Taken Comments Blood Pressure 140/79 04/29/2025 4:31 PM CASTING FINISHER Pulse 109 04/29/2025 4:31 PM CASTING FINISHER Temperature 36.8 C (98.3 F) 04/29/2025 4:31 PM CASTING FINISHER Respiratory Rate 19 04/29/2025 4:31 PM CASTING FINISHER Oxygen Saturation 94% 04/29/2025 4:31 PM CASTING FINISHER Inhaled Oxygen Concentration - - Weight 151.2 kg (333 lb 6 oz) 04/29/2025 5:16 AM CASTING FINISHER Height 180.3 cm (5' 11 ) 04/20/2025 1:15 AM CASTING FINISHER Body Mass Index 46.5 04/20/2025 1:15 AM CASTING FINISHER Plan of Treatment Scheduled Procedures Name Priority Associated Diagnoses Date/Ti me CYSTOURETHROSCOPY BLADDER FULGURATION n/a 04/23/2025 1:40 PM CASTING FINISHER Health Maintenance Due Date Last Done Comments Pre-Diabetes and Diabetes Screening 02/28/1958 PNEUMOCOCCAL VACCINE 50+ YEA RS (1 of 2 - PCV) 02/29/1976 COLORECTAL SCREENING 02/28/2002 Colorectal Cancer Screening 02/28/2002 FIT-DNA Q 3 years 02/28/2002 FIT/FOBT Q 1 year 02/28/2002 Flex Sig/CT Colonography Q 5 years 02/28/2002 RSV VACCINE (60+ or ) (1 - Risk 50-74 years 1-dose series) 02/28/2007 ZOSTER VACCINE (1 of 2) 02/28/2007 INFLUENZA VACCINE (#1) 2025 DTAP/TDAP/TD VACCINES (3 - Td or Tdap) 03/05/2035, 01/18/2023 Procedures Procedure Name Priority Date/Time Associated Diagnosis Comments TELEMETRY REPORT 04/30/2025 2:09 AM CASTING FINISHER HEMOGLOBIN AND HEMATOCRIT Routine 04/29/2025 11:43 AM CASTING FINISHER PTT Routine 04/29/2025 4:34 AM CASTING FINISHER UNFRACTIONATED HEPARIN ACTIVITY Timed Study 04/29/2025 4:34 AM CASTING FINISHER MAGNESIUM LEVEL Routine 04/29/2025 4:34 AM CASTING FINISHER BASIC METABOLIC PANEL Routine 04/29/2025 4:34 AM CASTING FINISHER CBC WITH DIFFERENTIAL Routine 04/29/2025 4:34 AM CASTING FINISHER HEMOGLOBIN AND HEMATOCRIT Routine 04/28/2025 8:43 PM CASTING FINISHER HEMOGLOBIN AND HEMATOCRIT Routine 04/28/2025 1:21 PM CASTING FINISHER UNFRACTIONATED HEPARIN ACTIVITY Timed Study 04/28/2025 4:55 AM CASTING FINISHER MAGNESIUM LEVEL Routine 04/28/2025 4:55 AM CASTING FINISHER BASIC METABOLIC PANEL Routine 04/28/2025 4:55 AM CASTING FINISHER CBC WITH DIFFERENTIAL Routine 04/28/2025 4:55 AM CASTING FINISHER TROPONIN 6 HR, 5TH GEN Timed Study 12:09 AM CASTING FINISHER HEMOGLOBIN AND HEMATOCRIT Routine 04/28/2025 12:09 AM CASTING FINISHER TROPONIN 2 HR, 5TH GEN Timed Study 8:25 PM CASTING FINISHER TROPONIN BASELINE, 5TH GEN Stat 04/27/2025 6:16 PM CASTING FINISHER HEMOGLOBIN AND HEMATOCRIT Routine 04/27/2025 6:16 PM CASTING FINISHER EKG 12-LEAD Stat 04/27/2025 5:53 PM CASTING FINISHER HEMOGLOBIN AND HEMATOCRIT Routine 04/27/2025 3:39 PM CASTING FINISHER POC GLUCOSE Routine 04/27/2025 9:42 AM CASTING FINISHER HI ANES INSERT CATH, ART, PERCUT, SHORTTERM Routine 04/27/2025 9:38 AM CASTING FINISHER HI ANES INSERT ENDOTRACHEAL AIRWAY Routine 04/27/2025 8:59 AM CASTING FINISHER UNFRACTIONATED HEPARIN ACTIVITY Timed Study 04/27/2025 5:28 AM CASTING FINISHER MAGNESIUM LEVEL Routine 04/27/2025 5:28 AM CASTING FINISHER BASIC METABOLIC PANEL Routine 04/27/2025 5:28 AM CASTING FINISHER CBC WITH DIFFERENTIAL Routine 04/27/2025 5:28 AM CASTING FINISHER HEMOGLOBIN AND HEMATOCRIT Routine 04/27/2025 12:23 AM CASTING FINISHER UNFRACTIONATED HEPARIN ACTIVITY Timed Study 04/27/2025 12:22 AM CASTING FINISHER HEMOGLOBIN AND HEMATOCRIT Routine 04/26/2025 5:58 PM CASTING FINISHER UNFRACTIONATED HEPARIN ACTIVITY Timed Study 04/26/2025 5:57 PM CASTING FINISHER UNFRACTIONATED HEPARIN ACTIVITY Timed Study 04/26/2025 11:40 AM CASTING FINISHER HEMOGLOBIN AND HEMATOCRIT Routine 04/26/2025 11:40 AM CASTING FINISHER UNFRACTIONATED HEPARIN ACTIVITY Timed Study 04/26/2025 4:56 AM CASTING FINISHER MAGNESIUM LEVEL Routine 04/26/2025 4:56 AM CASTING FINISHER BASIC METABOLIC PANEL Routine 04/26/2025 4:56 AM CASTING FINISHER CBC WITH DIFFERENTIAL Routine 04/26/2025 4:56 AM CASTING FINISHER EKG 12-LEAD Stat 04/26/2025 4:01 AM CASTING FINISHER HEMOGLOBIN AND HEMATOCRIT Routine 04/26/2025 12:35 AM CASTING FINISHER HEMOGLOBIN AND HEMATOCRIT Routine 04/25/2025 5:09 PM CASTING FINISHER UNFRACTIONATED HEPARIN ACTIVITY Timed Study 04/25/2025 5:09 PM CASTING FINISHER EKG 12-LEAD Stat 04/25/2025 11:36 AM CASTING FINISHER HEMOGLOBIN AND HEMATOCRIT Routine 04/25/2025 11:11 AM CASTING FINISHER UNFRACTIONATED HEPARIN ACTIVITY Timed Study 04/25/2025 11:11 AM CASTING FINISHER UNFRACTIONATED HEPARIN ACTIVITY Timed Study 04/25/2025 4:40 AM CASTING FINISHER MAGNESIUM LEVEL Routine 04/25/2025 4:40 AM CASTING FINISHER BASIC METABOLIC PANEL Routine 04/25/2025 4:40 AM CASTING FINISHER CBC WITH DIFFERENTIAL Routine 04/25/2025 4:40 AM CASTING FINISHER HEMOGLOBIN AND HEMATOCRIT Routine 04/24/2025 4:32 PM CASTING FINISHER PT EVAL AND TREAT Pending Discharge 04/24/2025 2:09 PM CASTING FINISHER UNFRACTIONATED HEPARIN ACTIVITY Timed Study 04/24/2025 10:35 AM CASTING FINISHER EKG 12-LEAD Pending Discharge 04/24/2025 8:53 AM CASTING FINISHER HEMOGLOBIN AND HEMATOCRIT Routine 04/24/2025 5:10 AM CASTING FINISHER MAGNESIUM LEVEL Routine 04/24/2025 5:10 AM CASTING FINISHER BASIC METABOLIC PANEL Routine 04/24/2025 5:10 AM CASTING FINISHER UNFRACTIONATED HEPARIN ACTIVITY Timed Study 04/24/2025 2:44 AM CASTING FINISHER HEMOGLOBIN AND HEMATOCRIT Routine 04/24/2025 12:39 AM CASTING FINISHER HEMOGLOBIN AND HEMATOCRIT Routine 04/23/2025 8:40 PM CASTING FINISHER UNFRACTIONATED HEPARIN ACTIVITY Timed Study 04/23/2025 7:42 PM CASTING FINISHER UNFRACTIONATED HEPARIN ACTIVITY Timed Study 04/23/2025 1:24 PM CASTING FINISHER HEMOGLOBIN AND HEMATOCRIT Routine 04/23/2025 1:24 PM CASTING FINISHER ECHO TRANSESOPHAGEAL WITH CARDIOVERSION Routine 04/23/2025 10:00 AM CASTING FINISHER UNFRACTIONATED HEPARIN ACTIVITY Timed Study 04/23/2025 6:11 AM CASTING FINISHER HEMOGLOBIN AND HEMATOCRIT Routine 04/23/2025 6:11 AM CASTING FINISHER MAGNESIUM LEVEL Routine 04/23/2025 3:12 AM CASTING FINISHER BASIC METABOLIC PANEL Routine 04/23/2025 3:12 AM CASTING FINISHER CBC WITH DIFFERENTIAL Routine 04/23/2025 3:12 AM CASTING FINISHER HEMOGLOBIN AND HEMATOCRIT Routine 04/22/2025 11:22 PM CASTING FINISHER UNFRACTIONATED HEPARIN ACTIVITY Timed Study 04/22/2025 11:22 PM CASTING FINISHER POC GLUCOSE Routine 04/22/2025 9:52 PM CASTING FINISHER HEMOGLOBIN AND HEMATOCRIT Routine 04/22/2025 9:24 PM CASTING FINISHER UNFRACTIONATED HEPARIN ACTIVITY Timed Study 04/22/2025 2:30 PM CASTING FINISHER POTASSIUM LEVEL Timed Study 04/22/2025 2:30 PM CASTING FINISHER HEMOGLOBIN AND HEMATOCRIT Routine 04/22/2025 2:30 PM CASTING FINISHER US RENAL Routine 04/22/2025 1:19 PM CASTING FINISHER EXTRA TUBE (URINE MELENDEZ) Routine 04/22/2025 1:04 PM CASTING FINISHER PROTEIN , RANDOM URINE Routine 1:04 PM CASTING FINISHER URINALYSIS W/REFLEX MICROSCOPIC Routine 04/22/2025 1:04 PM CASTING FINISHER UREA NITROGEN, RANDOM URINE Routine 04/22/2025 1:04 PM CASTING FINISHER SODIUM, RANDOM URINE Routine 04/22/2025 1:04 PM CASTING FINISHER ECHOCARDIOGRAM W/ CONTRAST AGENT Routine 04/22/2025 10:37 AM CASTING FINISHER MAGNESIUM LEVEL Routine 04/22/2025 4:45 AM CASTING FINISHER BASIC METABOLIC PANEL Routine 04/22/2025 4:45 AM CASTING FINISHER CBC WITH DIFFERENTIAL Routine 04/22/2025 4:45 AM CASTING FINISHER HEMOGLOBIN AND HEMATOCRIT Routine 04/22/2025 12:01 AM CASTING FINISHER HEMOGLOBIN AND HEMATOCRIT Routine 04/21/2025 6:13 PM CASTING FINISHER HEMOGLOBIN AND HEMATOCRIT Routine 04/21/2025 12:49 PM CASTING FINISHER US VENOUS DOPPLER LEG BILATERAL Routine 04/21/2025 12:05 PM CASTING FINISHER MAGNESIUM LEVEL Routine 04/21/2025 4:39 AM CASTING FINISHER BASIC METABOLIC PANEL Routine 04/21/2025 4:39 AM CASTING FINISHER CBC WITH DIFFERENTIAL Routine 04/21/2025 4:39 AM CASTING FINISHER PTH INTACT Routine 04/21/2025 4:39 AM CASTING FINISHER HEMOGLOBIN AND HEMATOCRIT Routine 04/20/2025 11:21 PM CASTING FINISHER HEMOGLOBIN AND HEMATOCRIT Routine 04/20/2025 6:29 PM CASTING FINISHER TROPONIN Routine 04/20/2025 1:58 PM CASTING FINISHER FERRITIN Routine 04/20/2025 1:58 PM CASTING FINISHER IRON, TIBC, AND PERCENT SATURATION Routine 04/20/2025 1:58 PM CASTING FINISHER PTT Routine 04/20/2025 1:58 PM CASTING FINISHER UNFRACTIONATED HEPARIN ACTIVITY Timed Study 04/20/2025 1:58 PM CASTING FINISHER BASIC METABOLIC PANEL Routine 04/20/2025 1:58 PM CASTING FINISHER PT EVAL AND TREAT Routine 04/20/2025 11:31 AM CASTING FINISHER OT EVAL AND TREAT Routine 04/20/2025 11:31 AM CASTING FINISHER OT EVAL AND TREAT Routine 04/20/2025 11:30 AM CASTING FINISHER PT EVAL AND TREAT Routine 04/20/2025 11:30 AM CASTING FINISHER BLOOD CULTURE Stat 04/20/2025 10:53 AM CASTING FINISHER BLOOD CULTURE Stat 04/20/2025 10:53 AM CASTING FINISHER HEMOGLOBIN AND HEMATOCRIT Routine 04/20/2025 10:52 AM CASTING FINISHER BLOOD CULTURE Routine 04/20/2025 10:33 AM CASTING FINISHER BLOOD CULTURE Routine 04/20/2025 10:33 AM CASTING FINISHER VITAMIN D 25 HYDROXY Routine 04/20/2025 7:09 AM CASTING FINISHER TROPONIN 6 HR, 5TH GEN Timed Study 7:09 AM CASTING FINISHER LACTIC ACID Stat 04/20/2025 2:39 AM CASTING FINISHER EKG 12-LEAD Routine 04/20/2025 2:30 AM CASTING FINISHER COMPREHENSIVE METABOLIC PANEL Routine 04/20/2025 2:29 AM CASTING FINISHER CBC WITH DIFFERENTIAL Routine 04/20/2025 2:29 AM CASTING FINISHER TROPONIN BASELINE, 5TH GEN Stat 04/20/2025 2:29 AM CASTING FINISHER MAGNESIUM LEVEL Routine 04/20/2025 2:29 AM CASTING FINISHER T4 FREE Routine 04/20/2025 2:29 AM CASTING FINISHER TSH Routine 04/20/2025 2:29 AM CASTING FINISHER from Last 3 Months Results * TELEMETRY REPORT (04/30/2025 2:09 AM CASTING FINISHER) us Provider Scanning ECG ORDERABLES Final Result * (ABNORMAL) HEMOGLOBIN AND HEMATOCRIT (04/29/2025 11:43 AM CASTING FINISHER) Only the most recent of27 resultswithin the time period is included. Pathologist [facility] HEMOGLOBIN 9.2(L) 14.0 - 18.0 g/dL 04/29/2025 11:57 AM CASTING FINISHER [facility] HEMATOCRIT 30.3(L) 41.0 - 53.0 % 04/29/2025 11:57 AM CASTING FINISHER [facility] Blood Venipuncture / Unknown 04/29/2025 11:43 AM CASTING FINISHER 04/29/2025 11:52 AM CASTING FINISHER Rishabh Reed MD HEMATOLOGY ORDERABLES Cristy l Result [facility] CLIA # [id number] [address] [place] [address] [place] [address] * UNFRACTIONATED HEPARIN MONITORING (04/29/2025 4:34 AM CASTING FINISHER) Only the most recent of18 resultswithin the time period is included. [facility] ANTI-XA UNFRAC HEP 04/29/2025 5:58 AM CASTING FINISHER [facility] Comment:Patient receiving an ti-coagulation therapy (eliquis/apixaban), test invalid. Redraw test after anti-coagulation therapy discontinued (5 days) if test is still indicated. This test has not been charged. Blood Venipuncture / Unknown 04/29/2025 4:34 AM CASTING FINISHER 04/29/2025 5:41 AM CASTING FINISHER Carlos Zendejas MD HEMATOLOGY ORDERABLES Fi nal Result Performing Organization Address City/[facility]/ZIP Co de Phone Number [facility] CLIA # [id number] [address] [place] [id number] * (ABNORMAL) CBC WITH DIFFERENTIAL (04/29/2025 4:34 AM CASTING FINISHER) Only the most recent of9 resultswithin the time period is included. [facility] WBC 9.3 4.8 - 10.8 K/uL 04/29/2025 5:51 AM CASTING FINISHER [facility] RBC 3.49(L) 4.60 - 6.20 M/uL 04/29/2025 5:51 AM CASTING FINISHER [facility] HEMOGLOBIN 9.1(L) 14.0 - 18.0 g/dL 04/29/2025 5:51 AM [facility] HEMATOCRIT 30.1(L) 41.0 - 53.0 % 04/29/2025 5:51 AM [facility] MCV 86.2 84.0 - 103.0 fL 04/29/2025 5:51 AM [facility] MCH 26.1(L) 27.0 - 34.0 pg 04/29/2025 5:51 AM [facility] MCHC 30.2 30.0 - 35.0 g/dL 04/29/2025 5:51 AM [facility] PLATELETS 213 140 - 440 K/uL 04/29/2025 5:51 AM [facility] MPV 9.7 8.9 - 12.8 fL 04/29/2025 5:51 AM [facility] RDW 19.9(H) 11.0 - 14.5 % 04/29/2025 5:51 AM [facility] RDW-STDEV 60.8(H) 37.0 - 54.0 fL 04/29/2025 5:51 AM [facility] NEUTROPHILS 81(H) 42 - 75 % 04/29/2025 5:51 AM [facility] LYMPHOCYTES 9(L) 24 - 44 % 04/29/2025 5:51 AM [facility] MONOCYTES 6 2 - 10 % 04/29/2025 5:51 AM [facility] EOSINOPHILS 2 0 - 7 % 04/29/2025 5:51 AM [facility] BASOPHILS 0 0 - 1 % 04/29/2025 5:51 AM [facility] IMMATURE GRANULOCYTES 2 0 - 2 % 04/29/2025 5:51 AM [facility] NEUTROPHIL ABSOLUTE 7.50 2.00 - 8.00 K/uL 04/29/2025 5:51 AM [facility] LYMPHOCYTE ABSOLUTE 0.82(L) 1.20 - 4.00 K/uL 04/29/2025 5:51 AM [facility] MONOCYTE ABSOLUTE 0.60 0.10 - 0.60 K/uL 04/29/2025 5:51 AM [facility] EOSINOPHIL ABSOLUTE 0.17 0.00 - 0.70 K/uL 04/29/2025 5:51 AM [facility] BASOPHILS ABSOLUTE 0.04 0.00 - 0.20 K/uL 04/29/2025 5:51 AM [facility] IMMATURE GRANULOCYTES ABSOLUTE 0.18(H) 0.00 - 0.10 K/uL 04/29/2025 5:51 AM [facility] SMEAR REVIEWED: NA - Not Applicable 04/29/2025 5:51 AM [facility] Blood Venipuncture / Unknown 04/29/2025 4:34 AM CASTING FINISHER 04/29/2025 5:42 AM CASTING FINISHER Rishabh Reed MD HEMATOLOGY ORDERABLES Cristy l Result [facility] CLIA # [id number] [address] [place] [id number] * (ABNORMAL) PTT (04/29/2025 4:34 AM CASTING FINISHER) Only the most recent of2 resultswithin the time period is included. PTT 39.3(H) 24.8 - 37.2 seconds 04/29/2025 6:04 AM [facility] Blood Venipuncture / Unknown 04/29/2025 4:34 AM CASTING FINISHER 04/29/2025 5:41 AM CASTING FINISHER Narrative [facility] - 04/29/2025 6:04 AM CASTING FINISHER Therapeutic Range: Hi-level PE/DVT heparin protocol 80.1 - 95.0 sec Lo-level PE/DVT heparin protocol 70.1 - 85.0 sec Cardiac Heparin Protocol 70.1 - 100.0 sec Carlos Zendejas MD HEMATOLOGY ORDERABLES Fi nal Result Performing Organization Address [facility] Co de Phone Number [facility] CLIA # [id number] [facility] [address] [address] * MAGNESIUM LEVEL (04/29/2025 4:34 AM CASTING FINISHER) Only the most recent of10 resultswithin the time period is included. [facility] MAGNESIUM 2.0 1.6 - 2.4 mg/dL 04/29/2025 6:13 AM [facility] Blood Venipuncture / Unknown 04/29/2025 4:34 AM CASTING FINISHER 04/29/2025 5:41 AM CASTING FINISHER Rishabh Reed MD CHEMISTRY ORDERABLES Final Result Performing Organization Address [facility] Co de Phone Number [facility] CLIA # [id number] [facility] [address] [address] * (ABNORMAL) BASIC METABOLIC PANEL (04/29/2025 4:34 AM CASTING FINISHER) Only the most recent of10 resultswithin the time period is included. Pathologist [facility] SODIUM 132(L) 136 - 145 mmol/L 04/29/2025 6:13 AM [facility] [employer] [facility] POTASSIUM 3.7 3.5 - 5.1 mmol/L 04/29/2025 6:13 AM [facility] [employer] [facility] CHLORIDE 97(L) 98 - 107 mmol/L 04/29/2025 6:13 AM [facility] CO2 22 22 - 29 mmol/L 04/29/2025 6:13 AM [facility] [employer] [facility] CALCIUM 12.1(H) 8.8 - 10.2 mg/dL 04/29/2025 6:13 AM [facility] BUN 44(H) 8 - 23 mg/dL 04/29/2025 6:13 AM [facility] CREATININE 1.47(H) 0.67 - 1.17 mg/dL 04/29/2025 6:13 AM [facility] GLUCOSE 90 74 - 99 mg/dL 04/29/2025 6:13 AM [facility] GFR 52(L) >=60 mL/min/1. 73 sq meter 04/29/2025 6:13 AM [facility] Comment:eGFR calculated with 2020 CKD-EPI equation. Vegetarian diet, extremely high or low muscle mass, and may affect results. Cystatin C with Glomerular Filtration Rate is a suitable alternative for these patients. ANION GAP 13 9 - 20 mmol/L 04/29/2025 6:13 AM [facility] Blood Venipuncture / Unknown 04/29/2025 4:34 AM CASTING FINISHER 04/29/2025 5:41 AM CASTING FINISHER Rishabh Reed MD CHEMISTRY ORDERABLES Final Result Performing Organization Address [facility]/ZIP Co de Phone Number [facility] CLIA # [id number] [address] [place] [phone] * (ABNORMAL) TROPONIN 6 HR, 5TH GEN (04/28/2025 12:09 AM CASTING FINISHER) Only the most recent of2 resultswithin the time period is included. TROPONIN T, 6 HR 5TH GEN 74(H) <=15 ng/L 04/28/2025 12:49 AM [facility] DELTA 6HR TROPONIN T 2 See Interp. 04/28/2025 12:49 AM [facility] Blood Venipuncture / Unknown 04/28/2025 12:09 AM CASTING FINISHER 04/28/2025 12:17 AM CASTING FINISHER Narrative [facility] - 04/28/2025 12:49 AM CASTING FINISHER Troponin elevated. Delta indeterminate. Carlos Zendejas MD CHEMISTRY ORDERABLES Fin al Result Performing Organization Address City/[facility]/ZIP Co de Phone Number [facility] [employer] [facility] CLIA # [id number] [address] [address] * (ABNORMAL) TROPONIN 2 HR, 5TH GEN (04/27/2025 8:25 PM CASTING FINISHER) TROPONIN T, 2 HR 5TH GEN 74(H) <=15 ng/L 04/27/2025 9:10 PM CASTING FINISHER [facility] [employer] [facility] DELTA 2HR TROPONIN T 2 See Interp. 04/27/2025 9:10 PM CASTING FINISHER [facility] Blood Venipuncture / Unknown 04/27/2025 8:25 PM CASTING FINISHER 04/27/2025 8:38 PM CASTING FINISHER [facility] [employer] [facility] - 04/27/2025 9:10 PM CASTING FINISHER Troponin elevated. Delta not changing. Carlos Zendejas MD CHEMISTRY ORDERABLES Fin al Result Performing Organization Address [facility] Co de Phone Number [facility] CLIA # [id number] [address] [address] * (ABNORMAL) TROPONIN BASELINE, 5TH GEN (04/27/2025 6:16 PM CASTING FINISHER) Only the most recent of2 resultswithin the time period is included. TROPONIN T, BASELINE 5TH GEN 72(H) <=15 ng/L 04/27/2025 7:19 PM CASTING FINISHER [facility] [employer] [facility] Blood Venipuncture / Unknown 04/27/2025 6:16 PM CASTING FINISHER 04/27/2025 6:37 PM CASTING FINISHER [facility] [employer] [facility] - 04/27/2025 7:19 PM CASTING FINISHER Troponin elevated. Carlos Zendejas MD CHEMISTRY ORDERABLES Fin al Result Performing Organization Address City/[facility]/ZIP Co de Phone Number [facility] [employer] [facility] CLIA # [id number] [facility] [place] [address] * EKG 12-LEAD (04/27/2025 5:53 PM CASTING FINISHER) Only the most recent of5 resultswithin the time period is included. 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: [id number] : 1958-02-28 Requested By: Order Number: [id number] Reading MD: Tara Jiang Measurements Intervals [place] Rate: 94 P: 0 HI: 0 QRS: 81 QRSD: 180 T: 90 QT: 448 QTc: 560 Interpretive Statements Atrial fibrillation LBBB Abnormal ECG Electronically Signed On 04-28-2025 13:34:37 CASTING FINISHER by Tara Jiang Procedure Note Provider, Historical - 04/28/[address] [address] Test Date: 2025-04-27 Pat Name: KRISTOPHER LEBLANC Department: 12 Room: [address] [place] [address] 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 GLUCOSE POC 78 74 - 99 mg/dL 04/27/2025 9:42 AM CASTING FINISHER [facility] SPECIMEN SOURCE, GLUCOSE POC Capillary 04/27/2025 9:42 AM CASTING FINISHER [facility] Blood, whole 04/27/2025 9:42 AM CASTING FINISHER 04/27/2025 9:49 AM CASTING FINISHER Carlos Zendejas MD POINT OF CARE TESTING Fi nal Result [facility] CLIA # [id number] [place] [address] * HI ANES INSERT CATH, ART, PERCUT, SHORTTERM (04/27/2025 9:38 AM CASTING FINISHER) Narrative Shayan León MD - 04/27/2025 9:38 AM CASTING FINISHER Shayan León MD 04/27/2025 9:38 AM Arterial [...] type: radial kit Catheter size: 20 G [place] Identification: palpation technique Number of attempts: 1 Successful placement: yes Procedure uneventful Post-procedure: dressing applied and line secured Shayan León MD PROCEDURE/MINOR SURGICAL O RDERABLES Final Result * HI ANES INSERT ENDOTRACHEAL AIRWAY (04/27/2025 8:59 AM CASTING FINISHER) Narrative Edi Morales CRNA - 04/27/2025 8:59 AM CASTING FINISHER Edi Morales CRNA 04/27/2025 9:08 AM Airway Date/Time: 04/27/2025 8:59 AM Location: OR Plan: routine intubation Patient Identity Confirmed by: Verbally with patient and armband Staffing Performed: SUZY/CAA Authorized by: Shayan León MD Performed by: [...] PROCEDURE/MINOR SURGICAL O RDERABLES Final Result * ECHO TRANSESOPHAGEAL WITH CARDIOVERSION (04/23/2025 10:00 AM CASTING FINISHER) EJECTION FRACTION EF: INTERFACE SYSTEM 04/23/2025 8:49 AM CASTING FINISHER Narrative INTERFACE SYSTEM - 04/23/2025 9:56 AM CASTING FINISHER [facility] Cardiovascular Services Echocardiography Laboratory [address] [place] [address] Transesophageal Echocardiography with Cardioversion Patient: Kristopher Leblanc Study ID: ECHO TRANSESOPHA Gender: M : 02/28/1958 Age: 67 Room: [facility] Study Date: 04/23/2025 Pt Status: Inpatient Study Time: 08:49:44 AM [facility] #: [id number] Ordering:Tara Jiang China Decorator: LINDSEY Nurse: Marleni Vazquez Indications and History: [...] septum: Agitated saline contrast study shows no izcex-qy-yjhh shunt. - Mitral valve: The annulus is [...] transesophageal probe was inserted by the attending sales operations specialist without difficulty. Image quality was adequate. Intravenous [...] Doppler. Agitated saline contrast study shows no qmshd-vr-ekln shunt. AORTIC VALVE: The valve is trileaflet. [...] (H) pasquale values outside specified reference range. [facility] Labs are accredited with the Intersocietal Accreditation Commission - Echocardiography. Prepared and Electronically Authenticated Aman Robles Confirmed 04/23/2025 09:56 Procedure Note Aman Robles MD - 04/23/2025 [facility] Cardiovascular Services Echocardiography Laboratory [address] [place] [address] Transesophageal Echocardiography with Cardioversion Patient: Kristopher Leblanc Study ID: ECHOTRANSESOPHA Gender: M : 02/28/1958 Age: 67 Room: [facility] Study Date: 04/23/2025 Pt Status: Inpatient Study Time: 08:49:44 AM CSN #: [id number] Ordering:Tara Jiang China Decorator: LINDSEY Nurse: Marleni Vazquez Indications and History: [...] septum: Agitated saline contrast study shows no ubuak-la-qwhkdfrzu. - Mitral valve: The annulus is calcified. [...] multiplane transesophageal probe was insertedby the attending sales operations specialist without difficulty. Image quality wasadequate. Intravenous contrast (agitated saline) was administered. Thetransesophageal probe was removed. No intracardiac thrombus was identified. Aftercompletion of transesophageal echocardiogram we proceeded with electricalcardioversion. The rhythm was successfully converted from atrial fibrillation to normalsinus rhythm, using biphasic synchronized shocks with a energy of 200J. Study completion: The patient tolerated the procedure well. Sedation begun [id number] and 0924. There were no complications. Administered [...] Doppler. Agitated saline contrast study shows no byqpc-hg-xijq shunt. AORTIC VALVE: The valve is trileaflet. [...] (H) pasquale values outside specified reference range. [facility] are accredited with theCity Of Hope, [place] Accreditation Commission - Echocardiography. Prepared and Electronically Authenticated Aman Robles Confirmed 04/23/2025 09:56 us Tara Jiang MD US ORDERABLES Final Result Performing Organization Address City/[facility]/ZIP Co de Phone Number INTERFACE SYSTEM Refer to clinic/hospital department * POTASSIUM LEVEL (04/22/2025 2:30 PM CASTING FINISHER) Pathologist [facility] POTASSIUM 3.8 3.5 - 5.1 mmol/L 04/22/2025 3:08 PM CASTING FINISHER [facility] Blood Venipuncture / Unknown 04/22/2025 2:30 PM CASTING FINISHER 04/22/2025 2:44 PM CASTING FINISHER us Komal Crandall MD CHEMISTRY ORDERABLES Final Resul t Performing Organization Address [facility] Co de Phone Number [facility] CLIA # [id number] [address] [place] [address] [place] [address] * US RENAL (04/22/2025 1:19 PM CASTING FINISHER) Anatomical Region Laterality Modality Abdomen Ultrasound 04/22/2025 1:19 PM CASTING FINISHER Impressions 04/22/2025 1:30 PM CASTING FINISHER IMPRESSION: Please see below. Exam: US RENAL [...] spleen, adrenal nodule or abnormal lymph node. Uvaldo Huber MD US ORDERABLES Final Result * EXTRA TUBE (URINE MELENDEZ) (04/22/2025 1:04 PM CASTING FINISHER) Urine URINE SPECIMEN OBTAINED BY CLEAN CATCH PROCEDURE / Unknown Collection / Unknown 04/22/2025 1:04 PM CASTING FINISHER 04/22/2025 1:13 PM CASTING FINISHER Uvaldo Huber MD URINE ORDERABLES Final Resul t [facility] CLIA # [id number] [address] [place] [address] * (ABNORMAL) UREA NITROGEN/CREATININE RATIO, URINE (04/22/2025 1:04 PM CASTING FINISHER) UREA NITROGEN, URINE 156 mg/dL 04/22/2025 1:55 PM CASTING FINISHER [facility] [employer] [facility] Comment:Reference range not established CREATININE, URINE 15.3(L) 40.0 - 278.0 mg/dL 04/22/2025 1:55 PM CASTING FINISHER [facility] Comment:Reference Range vari es with fluid intake and diet. UREA/CREAT RATIO, UR 10.2 mg/mg Creatinine 04/22/2025 1:55 PM CASTING FINISHER [facility] Urine URINE SPECIMEN OBTAINED BY CLEAN CATCH PROCEDURE / Unknown Collection / Unknown 04/22/2025 1:04 PM CASTING FINISHER 04/22/2025 1:13 PM CASTING FINISHER Gregorio Rogers MD URINE ORDERABLES Fin al Result Performing Organization Address [facility] Co de Phone Number [facility] CLIA # [id number] [address] [address] * SODIUM, RANDOM URINE (04/22/2025 1:04 PM CASTING FINISHER) SODIUM, URINE 122 mmol/L 04/22/2025 1:56 PM CASTING FINISHER [facility] Comment:Reference range not established Urine URINE SPECIMEN OBTAINED BY CLEAN CATCH PROCEDURE / Unknown Collection / Unknown 04/22/2025 1:04 PM CASTING FINISHER 04/22/2025 1:13 PM CASTING FINISHER Gregorio Rogers MD URINE ORDERABLES Fin al Result Performing Organization Address [facility] Co de Phone Number [facility] CLIA # [id number] [address] [place] [address] * (ABNORMAL) PROTEIN/CREATININE RATIO, URINE (04/22/2025 1:04 PM CASTING FINISHER) PROTEIN CONCENTRATION 75(H) 0 - 20 mg/dL 04/22/2025 1:56 PM CASTING FINISHER [facility] CREATININE, URINE 15.3(L) 40.0 - 278.0 mg/dL 04/22/2025 1:56 PM CASTING FINISHER [facility] Comment:Reference Range vari es with fluid intake and diet. PROTEIN/CREAT RATIO, URINE 4.90(H) 0.00 - 0.19 mg/mg Creatinine 04/22/2025 1:56 PM CASTING FINISHER [facility] Urine URINE SPECIMEN OBTAINED BY CLEAN CATCH PROCEDURE / Unknown Collection / Unknown 04/22/2025 1:04 PM CASTING FINISHER 04/22/2025 1:13 PM CASTING FINISHER us Uvaldo Huber MD URINE ORDERABLES Final Resul t [facility] CLIA # [id number] [address] [address] [place] [address] * (ABNORMAL) URINALYSIS WITH REFLEX MICROSCOPIC (04/22/2025 1:04 PM CASTING FINISHER) COLOR UA Colorless(A ) Pale to Dark Yellow 04/22/2025 1:23 PM [facility] CLARITY UA Cloudy(A) Clear 04/22/2025 1:23 PM [facility] SPECIFIC GRAVITY UA 1.008 1.003 - 1.035 04/22/2025 1:23 PM [facility] PH UA 6.0 5.0 - 8.0 04/22/2025 1:23 PM [facility] LEUKOCYTE ESTERASE UA 3+(A) Negative 04/22/2025 1:23 PM [facility] NITRITE UA Negative Negative 04/22/2025 1:23 PM [facility] PROTEIN UA 1+(A) Negative 04/22/2025 1:23 PM [facility] GLUCOSE UA Negative Negative 04/22/2025 1:23 PM [facility] KETONES UA Negative Negative 04/22/2025 1:23 PM [facility] UROBILINOGEN UA <2.0 <2.0 mg/dL 1:23 PM [facility] BILIRUBIN UA Negative Negative 04/22/2025 1:23 PM [facility] BLOOD UA 3+(A) Negative 04/22/2025 1:23 PM [facility] WBC UA >100(A) 0 - 2 /hpf 04/22/2025 1:23 PM [facility] RBC UA >100(A) 0 - 2 /hpf 04/22/2025 1:23 PM [facility] BACTERIA UA 1+(A) Negative /hpf 04/22/2025 1:23 PM CASTING FINISHER [facility] HYALINE CAST 0-2 None Seen, 0-2 /lpf 04/22/2025 1:23 PM CASTING FINISHER [facility] Urine URINE SPECIMEN OBTAINED BY CLEAN CATCH PROCEDURE / Unknown Collection / Unknown 04/22/2025 1:04 PM CASTING FINISHER 04/22/2025 1:13 PM CASTING FINISHER us Uvaldo Huber MD URINE ORDERABLES Final Resul t [facility] CLIA # [id number] [facility] [place] [address] * ECHOCARDIOGRAM W/ CONTRAST AGENT (04/22/2025 10:37 AM CASTING FINISHER) EJECTION FRACTION 30 INTERFACE SYSTEM 04/22/2025 9:42 AM CASTING FINISHER Narrative INTERFACE SYSTEM - 04/22/2025 11:20 AM [facility] Cardiovascular Services Echocardiography Laboratory [address] [place] [address] Transthoracic Echocardiography Patient: Kristopher Leblanc Study ID: ECHO COMPLETE - Gender: M : 02/28/1958 Age: 67 Room: [facility] Study Date: 04/22/2025 Pt Status: Inpatient Study Time: 09:42:33 AM CSN #: [id number] Ordering:Tara Jiang China Decorator: JRR Indications and History: HF, Cardiomyopathy; Initial evaluation [...] 0.95 cm^2/m^2 EF, MM Teich. 29 % Jovan VTI 21.9 cm EDV/bsa, MM Teich. 81 ml/m^2 Vena contracta width 3.2 cm EF, MM on 2D Teich. 29 % E', lat jovan, TDI 6.3 cm/sec Tricuspid valve Value E/e', lat jovan, TDI 16 TR vena contracta width 2.0 cm E', med jovan, TDI 4.7 cm/sec Peak RV-RA grad, S 44 mm Hg E/e', med jovan, TDI 21 E', avg, TDI 5.5 cm/sec [...] (H) pasquale values outside specified reference range. [facility] are accredited with the Intersocietal Accreditation Commission - Echocardiography. Prepared and Electronically Authenticated Carlos Brownlee Confirmed 04/22/2025 11:20 Procedure Note Carlos Brownlee MD - 04/22/2025 [facility] Echocardiography Laboratory [address] [place] [address] Transthoracic Echocardiography Patient: Kristopher Leblanc Study ID: ECHO COMPLETE- Gender: M : 02/28/1958 Age: 67 Room: [facility] Study Date: 04/22/2025 Pt Status: Inpatient Study Time: 09:42:33 AM CSN #: [id number] Ordering:Tara Jiang China Decorator: ELLIOTT Indications and History: HF, Cardiomyopathy; Initial [...] systolic functionis moderately to severely reduced. For [facility] reporting: the left ventricular ejection fraction [...] 27 % AP dim index, ES 2.0cm/m^2 PAYOTN major ax, A2C 9.7 cm Area ES, [...] cont 0.95cm^2/m^2 EF, MM Teich. 29 % Jovan VTI 21.9 cm EDV/bsa, MM Teich. 81 ml/m^2 Vena contracta width 3.2 cm EF, MM on 2D Teich. 29 % E', lat jovan, TDI 6.3 cm/sec Tricuspid valve Value E/e', lat jovan, TDI 16 TR vena contracta width 2.0 cm E', med jovan, TDI 4.7 cm/sec Peak RV-RA grad, S 44 mmHg E/e', med jovan, TDI 21 E', avg, TDI 5.5 cm/sec [...] (H) pasquale values outside specified reference range. [facility] are accredited with theCity Of Hope, [place]ocietal Accreditation Commission - Echocardiography. Prepared and Electronically Authenticated Carlos Brownlee Confirmed 04/22/2025 11:20 us Tara Jiang MD US ORDERABLES Final Result Performing Organization Address City/State/[facility] Co de Phone Number INTERFACE SYSTEM Refer to clinic/hospital department * US VENOUS DOPPLER LEG BILATERAL (04/21/2025 12:05 PM CASTING FINISHER) Anatomical Region Laterality Modality Lower Extremity Ultrasound 04/21/2025 10:2 9 AM CASTING FINISHER Narrative 04/26/2025 11:58 AM CASTING FINISHER [facility] Noninvasive Vascular Laboratory [address] [place] [address] Noninvasive Vascular Lab Venous Exam Complete Lower Extremity Duplex Patient: Kristopher Leblanc Study ID: US VENOUS DOPPLE Gender: Jayleen : 02/28/1958 Age: 67 Room: Height: Weight: BSA: Pt status: Inpatient Study Date: 04/21/2025 Study Time: 10:29:04 AM BSA: Ordering: Maricruz Galvan Interpreting:Leon Mckeon China Decorator: Nahomi Howell Indications: [place]. Summary Doppler venous [...] Patent; Normal phasicity; spontaneous; compressible; normal augmentation [facility] Vascular Lab is accredited with the Intersocietal Commission for the Accreditation of Vascular Laboratories (ICAVL) Prepared and Electronically Authenticated Leon Mckeon Confirmed 04/26/2025 11:58 Procedure Note Leon Mckeon MD - 04/26/2025 [facility] Noninvasive Vascular Laboratory [address] [place] [address] Noninvasive Vascular Lab Venous Exam Complete Lower Extremity Duplex Patient: Kristopher Leblanc Study ID: US VENOUS DOPPLE Gender: M : 02/28/1958 Age: 67 Room: Height: Weight: BSA: Pt status: Inpatient Study Date: 04/21/2025 Study Time: 10:29:04 AM BSA: Ordering: Maricruz Galvan Interpreting:Leon Mckeon China Decorator: Nahomi Howell Indications: [place]. Summary Doppler venous [...] saphenous Patent; Normal phasicity; spontaneous;compressible; normal augmentation [facility] Vascular Lab is accredited with theIntersocietal Commission for the Accreditation of Vascular Laboratories (ICAVL) Prepared and Electronically Authenticated CarterDaniellecachorro Leon Confirmed 04/26/2025 11:58 us Maricruz Galvan MD US ORDERABLES Final Result * (ABNORMAL) PTH INTACT (04/21/2025 4:39 AM CASTING FINISHER) PTH INTACT 151.4(H) 17.9 - 58.6 pg/mL 04/21/2025 5:30 AM CASTING FINISHER [facility] Blood Venipuncture / Unknown 04/21/2025 4:39 AM CASTING FINISHER 04/21/2025 4:56 AM CASTING FINISHER us Maricruz Galvan MD CHEMISTRY ORDERABLES Final R esult [facility] CLIA # [id number] [address] [place] [address] * (ABNORMAL) IRON, TIBC, AND PERCENT SATURATION (04/20/2025 1:58 PM CASTING FINISHER) [facility] IRON 28(L) 59 - 158 ug/dL 04/20/2025 3:55 PM CASTING FINISHER [facility] TIBC 197(L) 250 - 450 ug/dL 04/20/2025 3:55 PM CASTING FINISHER [facility] IRON % SATURATION 14(L) 15 - 60 % 04/20/2025 3:55 PM CASTING FINISHER [facility] Blood Venipuncture / Unknown 04/20/2025 1:58 PM CASTING FINISHER 04/20/2025 2:27 PM CASTING FINISHER Maricruz Galvan MD CHEMISTRY ORDERABLES Final R esult Performing Organization Address City/[facility]/ZIP Co de Phone Number [facility] CLIA # [id number] [address] [place] [address] * (ABNORMAL) TROPONIN (04/20/2025 1:58 PM CASTING FINISHER) [facility] TROPONIN T, 5TH GEN 152(HH) <=15 ng/L 04/20/2025 5:37 PM CASTING FINISHER [facility] Blood Venipuncture / Unknown 04/20/2025 1:58 PM CASTING FINISHER 04/20/2025 2:27 PM CASTING FINISHER Narrative [facility] - 04/20/2025 5:37 PM CASTING FINISHER Troponin elevated. Maricruz Galvan MD CHEMISTRY ORDERABLES Final R esult [facility] CLIA # [id number] [address] [place] [address] * (ABNORMAL) FERRITIN (04/20/2025 1:58 PM CASTING FINISHER) Pathologist [facility] FERRITIN 570.3(H) 30.0 - 400.0 ng/mL 04/20/2025 3:55 PM [facility] Blood Venipuncture / Unknown 04/20/2025 1:58 PM CASTING FINISHER 04/20/2025 2:27 PM CASTING FINISHER Maricruz Galvan MD CHEMISTRY ORDERABLES Final R esult Performing Organization Address City/[facility] Co de Phone Number [facility] CLIA # [id number] [address] [place] [address] * BLOOD CULTURE (04/20/2025 10:53 AM CASTING FINISHER) Only the most recent of2 resultswithin the time period is included. [facility] BLOOD CULTURE No growth 04/25/2025 11:41 AM [facility] Blood (Peripheral) Venipuncture / Unknown 04/20/2025 10:53 AM CASTING FINISHER 04/20/2025 10:58 AM [facility] - 04/25/2025 11:41 AM CASTING FINISHER Specimen processed with suboptimal blood volume collected. Maricruz Galvan MD MICROBIOLOGY - GENERAL ORDER SABAS Final Result Performing Organization Address [facility] Co de Phone Number [id number] [address] [address] * VITAMIN D 25 HYDROXY (04/20/2025 7:09 AM CASTING FINISHER) [facility] VITAMIN D TOTAL (25OH) 36 30 - 100 ng/mL 04/20/2025 6:00 PM [facility] Blood Venipuncture / Unknown 04/20/2025 7:09 AM CASTING FINISHER 04/20/2025 7:24 AM CASTING FINISHER [facility] - 04/20/2025 6:00 PM CASTING FINISHER Interpretive Data Chart: Deficient: 0 - 20 ng/mL Insufficient: 21 - 29 ng/mL Sufficient: 30 - 100 ng/mL Increased Risk of Hypercalciuria: >100 ng/ml Toxic: >150 ng/ml us Maricruz Galvan MD CHEMISTRY ORDERABLES Final R esult Performing Organization Address [facility] Co de Phone Number [facility] CLIA # [id number] [address] [facility] [place] [address] * LACTIC ACID (04/20/2025 2:39 AM CASTING FINISHER) LACTIC ACID 0.9 <=2.0 mmol/L 04/20/2025 3:07 AM CASTING FINISHER [facility] Blood Venipuncture / Unknown 04/20/2025 2:39 AM CASTING FINISHER 04/20/2025 2:43 AM CASTING FINISHER us Gregorio Rogers MD CHEMISTRY ORDERABLES Final Result Performing Organization Address [facility] Co de Phone Number [facility] CLIA # [id number] [address] [address] [place] [address] * TSH (04/20/2025 2:29 AM CASTING FINISHER) TSH 2.92 0.27 - 4.20 uIU/mL 04/20/2025 3:17 AM CASTING FINISHER [facility] Blood Venipuncture / Unknown 04/20/2025 2:29 AM CASTING FINISHER 04/20/2025 2:36 AM CASTING FINISHER Gregorio Rogers MD CHEMISTRY ORDERABLES Final Result Performing Organization Address City/[facility]/ZIP Co de Phone Number [facility] CLIA # [id number] [address] [place] [address] * T4 FREE (04/20/2025 2:29 AM CASTING FINISHER) [facility] T4 FREE 1.24 0.81 - 1.70 ng/dL 04/20/2025 3:18 AM CASTING FINISHER [facility] Blood Venipuncture / Unknown 04/20/2025 2:29 AM CASTING FINISHER 04/20/2025 2:36 AM CASTING FINISHER Gregorio Rogers MD CHEMISTRY ORDERABLES Final Result [facility] CLIA # [id number] [address] [facility] [place] [address] * (ABNORMAL) COMPREHENSIVE METABOLIC PANEL (04/20/2025 2:29 AM CASTING FINISHER) [facility] SODIUM 133(L) 136 - 145 mmol/L 04/20/2025 3:39 AM [facility] POTASSIUM 3.2(L) 3.5 - 5.1 mmol/L 04/20/2025 3:39 AM [facility] CHLORIDE 95(L) 98 - 107 mmol/L 04/20/2025 3:39 AM [facility] CO2 22 22 - 29 mmol/L 04/20/2025 3:39 AM [facility] CALCIUM 10.5(H) 8.8 - 10.2 mg/dL 04/20/2025 3:39 AM [facility] BUN 97(H) 8 - 23 mg/dL 04/20/2025 3:39 AM [facility] CREATININE 2.66(H) 0.67 - 1.17 mg/dL 04/20/2025 3:39 AM [facility] GLUCOSE 103(H) 74 - 99 mg/dL 04/20/2025 3:39 AM [facility] TOTAL PROTEIN 7.0 6.4 - 8.3 g/dL 04/20/2025 3:39 AM [facility] ALBUMIN 3.6 3.5 - 5.2 g/dL 04/20/2025 3:39 AM [facility] BILIRUBIN TOTAL 0.5 0.0 - 1.0 mg/dL 04/20/2025 3:39 AM [facility] ALKALINE PHOSPHATASE 51 40 - 129 U/L 04/20/2025 3:39 AM [facility] AST 10 10 - 50 U/L 04/20/2025 3:39 AM [facility] ALT <5 <=50 U/L 04/20/2025 3:39 AM [facility] GFR 25(L) >=60 mL/min/1. 73 sq meter 04/20/2025 3:39 AM [facility] Comment:eGFR calculated with 2020 CKD-EPI equation. Vegetarian diet, extremely high or low muscle mass, and may affect results. Cystatin C with Glomerular Filtration Rate is a suitable alternative for these patients. ANION GAP 16 9 - 20 mmol/L 04/20/2025 3:39 AM [facility] Blood Venipuncture / Unknown 04/20/2025 2:29 AM CASTING FINISHER 04/20/2025 2:36 AM CASTING FINISHER us Gregorio Rogers MD CHEMISTRY ORDERABLES Final Result [facility] CLIA # [id number] [address] [address] [place], [place] [address] from Last 3 Months Insurance MEDICAID [facility] PPO [facility] Advance Directives For more information, please contact: [phone] * Full Code (Latest Code Status on File) Date Activated Date Inactivated Comments 04/20/2025 2:13 AM 04/29/2025 7:02 PM * Default Full Code - Needs Discussion Date Activated Date Inactivated Comments 04/20/2025 1:17 AM 04/20/2025 2:13 AM
--- OUTSIDE RECORDS SUMMARY | 2025-04-30 02:49 | XMS_ITS | Encounter Summary ---
Author Organization [facility] Address [address] [place] [address] Care Team Providers Care Metallurgist Helper Name Role Phone Unavailable Primary Care Provider Unavailabl e Reason for Visit * Reason Onset Date Comments Procedure 04/26/2025 Encounter Details Date Type Department Care Team (Late st Contact Info) Description 04/26/2025 Telephone [facility] [address] [facility] [address] [place] [address] Bere Guzman RN Procedure Social History Tobacco Use Types Packs/Day Years [...] worry about transportation for future doctor visits, pickle maker medication, etc.? No 2024 Housing Stability Answer [...] on file Legal Sex Male 10:33 AM BUSINESS OFFICE SPECIALIST Gender Identity Not on file Sexual Orientation Not on file documented as of this encounter Miscellaneous Notes * Telephone Encounter - Bere Guzman RN - 04/26/2025 9:31 AM CST Patient called to schedule procedure no answer NESS OFFICE SPECIALIST documented in this encounter Plan of Treatment Scheduled Procedures Name Priority Associated Diagnoses Date/Ti pa CYSTOURETHROSCOPY BLADDER FULGURATION n/a 04/23/2025 1:40 PM BUSINESS OFFICE SPECIALIST documented as of this encounter Visit Diagnoses Not on filedocumented in this encounter
--- NOTE | 2025-04-30 03:00 | ECG_ITS ---
[facility] 2025-[facility]30 Pat Name: Kristopher Jesus Department: Room: Gender: Male Leaf Blender: : 1958-02-28 Requested By: Pedro Luis Guardado Order Number: [id number] Goodson MD: Carly Mancia M.D. Measurements Intervals [place] Rate: 116 P: -65 TN: 84 QRS: 90 QRSD: 182 T: 0 QT: 282 QTc: 392 Interpretive Statements Atrial tachycardia/flutter LEFT BUNDLE BRANCH BLOCK [120+ ms QRS DURATION, 80+ ms Q/S IN V1/V2, 85+ ms R IN I/aVL/V5/V6] Compared to ECG 04/30/2025 02:49:24 Junctional tachycardia now present Atrial fibrillation no longer present Electronically Signed On 05-01-2025 08:53:51 SUPERVISOR [employer]OND[employer] by Carly Mancia M.D. [email or web address]
--- NOTE | 2025-04-30 03:00 | XRR_ITS ---
PROCEDURE INFORMATION: Exam: XR Chest Exam date and time: 04/30/2025 3:47 AM Age: 67 years old Clinical indication: Pain; Angina pectoris; Additional info: Cp TECHNIQUE: Imaging protocol: Radiologic exam of the chest. Views: 1 view. COMPARISON: CR XR chest 1V portable [id number] 04/19/2025 3:35 PM FINDINGS: Lungs: Unremarkable. No consolidation. Pleural spaces: Unremarkable. No pleural effusion. No pneumothorax. Heart/Mediastinum: Cardiomegaly. Bones/joints: Unremarkable. XR/XR chest 1V portable [id number] IMPRESSION: No acute findings.
[2025-04-30 03:05] LABS: Hematocrit 30.1 % (37-53); Hemoglobin 9.40 g/dL (11.27-16.99); Mean Corpuscular HGB Conc 31.2 g/dL (30-55); Mean Corpuscular Hemoglobin 26.7 pg (27-33); Mean Corpuscular Volume 85.5 fl (82-101); Nucleated Red Blood Cells % 0 %; Platelet Count 210 10^3/cmm (157-399); Red Blood Count 3.52 10^6/uL (3.85-5.65); White Blood Count 9.23 10^3/uL (3.29-11.43)
[2025-04-30 03:17] LABS: Troponin(5th) Baseline 95 ng/L (0-15)
[2025-04-30 03:32] LABS: Alanine Aminotransferase 8 U/L (0-41); Albumin Level 3.6 g/dL (3.5-5.2); Alkaline Phosphatase 59 U/L (40-130); Anion Gap 21.6 (5-19); Aspartate Amino Transferase 12 U/L (0-40); Blood Urea Nitrogen 38 mg/dL (8-23); Calcium 11.9 mg/dL (8.5-10.5); Carbon Dioxide 18 mmol/L (22-29); Chloride 98 mmol/L (98-107); Globulin 2.6 g/dL (1.3-4.6); Glucose 100 mg/dL (65-115); Lipase 30 U/L (13-60); Magnesium 1.7 mg/dL (1.7-2.3); NT Pro B Type Natriuretic Pept 17335 pg/mL (0-125); Osmolality Calculated 287 mOsm/kg (285-295); Potassium 3.6 mmol/L (3.5-5.1); Sodium 134 mmol/L (136-145); Total Protein 6.2 g/dL (6.6-8.7)
[2025-04-30] MEDS: oxyCODONE 5 mg IR Tab/Cap PO (04:34)
[2025-04-30 04:38] LABS: Troponin 5 2HR 97.21 ng/L (0-15); Troponin 5 2HR Delta 2.21 ABS# (0-10)
--- NOTE | 2025-04-30 05:00 | W.ED.CHESTPA ---
HPI - Chest Pain General: Chief Complaint: Chest Pain Stated Complaint: CP Time Seen by Provider: 04/30/25 03:37 History of Present Illness: Patient presents with a history of atrial fibrillation, CHF, diabetes, PVD, hypertension, morbid obesity and bedbound who reports onset of chest pressure and fluttering palpitations beginning around 11:00?11:30 PM while lying in bed preparing to sleep and some light chest pressure but no severe shortness of breath, no syncope. No reported history of [place], no cardiac stents, had a recent admission for A-fib RVR, concerns for urosepsis, is supposed to have a pacemaker placed in the upcoming future. States has been taking his medications as prescribed, his sense of palpitations has decreased since being in the ED. endorses a mild worsening of his lower back pain. [facility]. Related Data Home Medications ?Medication ?Instructions ?Recorded ?Confirmed cholecalciferol (vitamin D3) 125 125 mcg PO DAILY 12/14/20 04/18/25 mcg (5,000 unit) tablet (Vitamin D3) albuterol sulfate 2.5 mg/3 mL 2.5 mg inhalation Q4H PRN Dyspnea 03/21/25 04/18/25 (0.083 %) solution for nebulization ammonium lactate 12 % topical cream 1 applic topical DAILY 03/21/25 04/18/25 baclofen 5 mg tablet 5 mg PO Q8H PRN Muscle Spasm 03/21/25 04/18/25 guaifenesin 100 mg/5 mL oral 200 mg PO Q4H PRN Cough 03/21/25 04/18/25 liquid (Guaifed (guaifenesin)) menthol 2.5 mg-pectin 7 mg 1 agusto PO Q4H PRN Cough 03/21/25 04/18/25 lozenges (Cough Drops (menthol-pectin)) nystatin 100,000 unit/gram topical 1 applic topical BID PRN Skin 03/21/25 04/18/25 powder Irritation ferrous sulfate 325 mg (65 mg 325 mg PO DAILY 04/18/25 04/18/25 iron) tablet metolazone 2.5 mg tablet 2.5 mg PO DAILY 04/18/25 04/18/25 multivitamin 1 tab PO DAILY 04/18/25 04/18/25 potassium chloride 20 mEq 40 meq PO BID 04/18/25 04/18/25 tablet,extended release(part/cryst) valsartan 160 mg tablet 160 mg PO DAILY 04/18/25 04/18/25 Previous Rx's ?Medication ?Instructions ?Recorded auto CPAP 6-16 setting #1 ea 03/22/23 amiodarone 200 mg tablet (Pacerone) 200 mg PO DAILY #100 tabs 06/18/24 gemfibrozil 600 mg tablet 600 mg PO BID #200 tabs 06/18/24 rivaroxaban 20 mg tablet 20 mg PO DAILY #100 tabs 06/18/24 CPAP mask, tubing, supplies #1 ea 08/14/24 acetaminophen 650 mg 650 mg PO Q12H PRN pain #60 tabs 08/14/24 tablet,extended release (Tylenol Arthritis Pain) furosemide 40 mg tablet 40 mg PO BID@08,16 #60 tabs 03/04/25 pantoprazole 40 mg tablet,delayed 40 mg PO BID #60 tabs 03/04/25 release carvedilol 3.125 mg tablet 3.125 mg PO BID #180 tabs 03/25/25 Allergies Allergy/AdvReac Type Severity Reaction Status Date / Time Penicillins Allergy ALGY-Difficulty Verified 03/01/25 14:12 Breathing [facility] ED PFSH: Medical History (Updated 04/30/25 @ 06:13 by Pedro Luis Guardado DO) Afib Heart failure with mildly reduced ejection fraction Cardiac murmur, previously undiagnosed Bilateral impacted cerumen Pre-diabetes Obstructive sleep apnea syndrome, severe Severe obstructive sleep apnea with hypoxia on 01/03/2023 study Basal cell carcinoma of right ear Chronic shortness of breath CKD (chronic kidney disease) stage 3, GFR 30-59 ml/min Cardiac arrest with ventricular fibrillation Chronic episodic atrial fibrillation Hx of adenomatous colonic polyps Last Colonoscopy 09/12/2020 with adenomatous polyp removed at 50 cm F/U 5 yrs Osteoarthritis Left bundle branch block History of alcohol abuse PVD (peripheral vascular disease) Morbid obesity with BMI of 50.0-59.9, adult CHF (congestive heart failure) CAD (coronary artery disease) Hx of myocardial infarction HTN (hypertension) Anemia in chronic kidney disease Hyperlipidemia Surgical History Hx of external ear surgery History of open reduction and internal fixation (ORIF) procedure Hx of foot surgery History of surgery on wrist Family History Mother No problems noted. Father No problems noted. Grandmother Diabetes Denies family history of CAD (coronary artery disease) Clotting disorder Dementia Chronic kidney disease (CKD) Suicide Anesthesia complication Bleeding disorder Lung disease Cancer Stroke Social History Smoking and tobacco/nicotine status: never used tobacco/nicotine Alcohol intake: never Substance/Drug Use: never Marital status: Single Number of children: 1 Current occupational status: disabled Physical Exam Narrative: EXAM NARRATIVE: Chronically ill-appearing, A-fib rhythm mildly tachycardic, afebrile, saturating well on room air, normotensive, no acute distress. Chronically bedbound and has elephantitis with findings of chronic venous stasis dermatitis. A-fib rhythm and mildly tachycardic but no RVR, normotensive. GCS 15, breathing comfortably on room air, saturating in mid 90s, able to speak in full sentences without getting significantly short of breath. Abdomen protuberant but no reproducible tenderness and soft. Course Vital Signs: Vital signs: Vital Signs Temperature 98.6 F 04/30/25 02:41 Pulse Rate 119 H 04/30/25 08:35 Respiratory Rate 18 04/30/25 04:34 Blood Pressure 120/76 04/30/25 08:35 Pulse Oximetry 93 04/30/25 08:35 Oxygen Delivery Me thod Room Air 04/30/25 07:43 MDM - Chest Pain Medical Decision Making -ddx: Dysrhythmia, ACS, viral syndrome, pneumonia, pneumothorax, heart failure exacerbation, lack of social support, difficulties in living situation - Patient chronically ill-appearing, was just in this hospital for A-fib RVR, urosepsis, seemingly improved from that, had slight episode of palpitations today, has been taking his medications as prescribed, does not appear acutely fluid overloaded, mildly tachycardic in A-fib rhythm but no RVR at this time. Laboratory studies with elevated troponin and BNP but actually improved from baseline. Infectious markers not concerning for any bacteremia or systemic infection at this time. His pain was moderately improved with oxycodone. HEART score of 6 but will alqays be high risk and low suspcision for ACS on todays exam. With any acute pathology ruled out, he was deemed able to be discharged medically, there was concerns for social situation and so in multiple discussions with him, the plan was to have him discharged and to see social work later this morning, does have seemingly decent support at home and requested an ambulance ride and to go back there which seemed reasonable but patient well-known to the hospital system so we will have him see social work and sort out a safe discharge, stable at this time. Lab Data 04/30/25 02:22 04/30/25 02:22 Radiology Impressions Chest X-Ray 04/30/25 03:00 IMPRESSION: No acute findings. Laboratory Results WBC 9.23 10^3/uL (3.29-11.43) 04/30/25 02:22 RBC 3.52 10^6/uL (3.85-5.65) L 04/30/25 02:22 Hgb 9.40 g/dL (11.27-16.99) L 04/30/25 02:22 Hct 30.1 % (37-53) L 04/30/25 02:22 MCV 85.5 fl (82-101) 04/30/25 02:22 MCH 26.7 pg (27-33) L 04/30/25 02:22 MCHC 31.2 g/dL (30-55) 04/30/25 02:22 RDW 20.3 % (12.1-15.1) H 04/30/25 02:22 Plt Count 210 10^3/cmm (157-399) 04/30/25 02:22 MPV 9.6 fL (7.4-10.4) 04/30/25 02:22 Neut % (Auto) 80.7 % 04/30/25 02:22 Lymph % (Auto) 9.1 % 04/30/25 02:22 [place] % (Auto) 6.9 % 04/30/25 02:22 Eos % (Auto) 1.3 % 04/30/25 02:22 Baso % (Auto) 0.3 % 04/30/25 02:22 Neut # (Auto) 7.44 10^3/uL (1.8-7.7) 04/30/25 02:22 Lymph # (Auto) 0.8 10^3/uL (0.8-4.8) 04/30/25 02:22 [place] # (Auto) 0.6 10^3/uL (0.2-0.9) 04/30/25 02:22 Eos # (Auto) 0.1 10^3/uL (0.0-0.8) 04/30/25 02:22 Baso # (Auto) 0.0 10^3/uL (0.0-0.1) 04/30/25 02:22 Nucleated RBC % (auto) 0 % 04/30/25 02:22 Nucleated RBCs # 0.0 /100WBC 04/30/25 02:22 Sodium 134 mmol/L (136-145) L 04/30/25 02:22 Potassium 3.6 mmol/L (3.5-5.1) 04/30/25 02:22 Chloride 98 mmol/L (98-107) 04/30/25 02:22 Carbon Dioxide 18 mmol/L (22-29) L 04/30/25 02:22 Anion Gap 21.6 (5-19) H 04/30/25 02:22 BUN 38 mg/dL (8-23) H 04/30/25 02:22 Creatinine 1.6 mg/dL (0.7-1.2) H 04/30/25 02:22 GFR Calculation 43.2 mL/min (90-130) L 04/30/25 02:22 Glucose 100 mg/dL (65-115) 04/30/25 02:22 Calculated Osmolality 287 mOsm/kg (285-295) 04/30/25 02:22 Calcium 11.9 mg/dL (8.5-10.5) H 04/30/25 02:22 Phosphorus 2.8 mg/dL (2.5-4.5) 04/30/25 02:22 Magnesium 1.7 mg/dL (1.7-2.3) 04/30/25 02:22 Total Bilirubin 0.3 mg/dL (0.15-1.2) 04/30/25 02:22 AST 12 U/L (0-40) 04/30/25 02:22 ALT 8 U/L (0-41) 04/30/25 02:22 Alkaline Phosphatase 59 U/L (40-130) 04/30/25 02:22 Troponin T Baseline 95 ng/L (0-15) H 04/30/25 02:22 Troponin T 120 Minute 97.21 ng/L (0-15) H 04/30/25 04:11 Delta Troponin T 2.21 ABS# (0-10) 04/30/25 04:11 NT-Pro-B Natriuret Pep 14635 pg/mL (0-125) H 04/30/25 02:22 Total Protein 6.2 g/dL (6.6-8.7) L 04/30/25 02:22 Albumin 3.6 g/dL (3.5-5.2) 04/30/25 02:22 Globulin 2.6 g/dL (1.3-4.6) 04/30/25 02:22 Lipase 30 U/L (13-60) 04/30/25 02:22 All radiology interpretation(s) finalized by discharge EKG Data EKG 1: Interpretation: AF rhythm, LBBB, no interval prolongation Discharge Plan Discharge Patient Disposition: Home Clinical Impression: A-fib CAD (coronary artery disease) Qualifiers: Coronary Disease-Associated Artery/Lesion type: [place] artery [place] vs. transplanted heart: [place] heart Associated angina: without angina Qualified Code(s): I25.10 - Atherosclerotic heart disease of [place] coronary artery without angina pectoris Condition: Stable Prescriptions: No Action acetaminophen [Tylenol Arthritis Pain] 650 mg tablet extended release 650 mg PO Q12H PRN (Reason: pain) Qty: 60 1RF (DME) CPAP mask, tubing, supplies See Rx Instructions .ROUTE .MEDSUPPLY Qty: 1 1RF Rx Instructions: As directed (DME) auto CPAP 6-16 setting See Rx Instructions .Route .MEDSUPPLY Qty: 1 0RF Rx Instructions: As directed gemfibrozil 600 mg tablet 600 mg PO BID Qty: 200 3RF rivaroxaban 20 mg tablet 20 mg PO DAILY Qty: 100 3RF Rx Instructions: must administer with evening meal amiodarone [Pacerone] 200 mg tablet 200 mg PO DAILY Qty: 100 3RF cholecalciferol (vitamin D3) [Vitamin D3] 125 mcg (5,000 unit) Tablet 125 mcg PO DAILY furosemide 40 mg Tablet 40 mg PO BID@08,16 Qty: 60 2RF pantoprazole 40 mg tablet,delayed release (DR/EC) 40 mg PO BID Qty: 60 3RF nystatin 100,000 unit/gram Powder 1 applic TOPICAL BID PRN (Reason: Skin Irritation) baclofen 5 mg tablet 5 mg PO Q8H PRN (Reason: Muscle Spasm) albuterol sulfate 2.5 mg /3 mL (0.083 %) Solution For Nebulization 2.5 mg INHALATION Q4H PRN (Reason: Dyspnea) ammonium lactate 12 % Cream 1 applic TOPICAL DAILY Rx Instructions: apply to left lower leg topically every day shift for dry, flaky skin Cough Drops (menthol-pectin) 2.5-7 mg Lozenge 1 agusto PO Q4H PRN (Reason: Cough) guaifenesin [Guaifed (guaifenesin)] 100 mg/5 mL Liquid 200 mg PO Q4H PRN (Reason: Cough) carvedilol 3.125 mg tablet 3.125 mg PO BID Qty: 180 3RF Rx Instructions: must administer with a meal/food; hold for SBP less than 95 multivitamin Tablet 1 tab PO DAILY metolazone 2.5 mg tablet 2.5 mg PO DAILY potassium chloride 20 mEq tablet,ER particles/crystals 40 meq PO BID ferrous sulfate 325 mg (65 mg iron) Tablet 325 mg PO DAILY valsartan 160 mg tablet 160 mg PO DAILY Discharge Orders: Discharge ED (Routine); Ordered 04/30/25 Ordered By: Pedro Luis Guardado Referrals: Brent Samuel MD [Primary Care Provider, Family Practice] Patient Instructions: Opioid Safety, Pain Management, Patient Portal & Erica Instructions Activity Restrictions/Additional Instructions: You were seen for your chest pain, you were evaluated with an EKG, chest x-ray, laboratory studies that were ultimately reassuring. You are not thought to have any acute decompensations of your chronic conditions and were deemed stable medically to be discharged. It is important that you follow-up with your primary care physician later this week for complete reconciliation of your medications and optimizing plan going forward. Return to the ED with severe worsening or chest pain, episodes of passing out, breathing difficulties, any other emergent concerns. Print Language: Citizen Of [place] Coding Level of Care Code ED Track Repair Supervisor for Helga Fwyamileth Heart Score HEART Score Components History: Slightly Suspicous EKG: Non-specific Changes Age: 65 or more yrs Risk Factors: >/=3 Risk Factors Troponin: Baseline Trop 16-45 ng/L HEART Score RESULT HEART Score: 6
--- NOTE | 2025-04-30 05:04 | ECG_ITS ---
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 Measurements Intervals [place] Rate: 107 P: 0 IL: 0 QRS: 81 QRSD: 180 T: 72 QT: 427 QTc: 572 Interpretive Statements ATRIAL FIBRILLATION WITH RAPID VENTRICULAR RESPONSE INTRAVENTRICULAR CONDUCTION DELAY [130+ ms QRS DURATION] Compared to ECG 04/30/2025 03:41:41 Intraventricular conduction delay now present Junctional tachycardia no longer present Left bundle-branch block no longer present Electronically Signed On 05-02-2025 00:14:29 COMMERCIAL LINES UNDERWRITER by Carly Mancia M.D. [email or web address]
== END 2025-04-30 08:36 | disposition home or self-care (01) ==
PROVIDERS: Emergency Provider Student in an Organized Health Care Education/Training Program; PCP Family Medicine
DX: I48.91 Unspecified atrial fibrillation (principal); E78.5 Hyperlipidemia, unspecified; I13.0 Hypertensive heart and chronic kidney disease with heart failure and stage 1 through stage 4 chronic kidney disease, or unspecified chronic kidney disease; N18.30 Chronic kidney disease, stage 3 unspecified; I50.20 Unspecified systolic (congestive) heart failure; Z85.828 Personal history of other malignant neoplasm of skin
CPT/HCPCS: 36415; 71045; 80053; 83690; 83735; 83880; 84100; 84484; 85025; 93005; 99285; J9999

== ENCOUNTER 2025-05-07 16:46 | Emergency (ER) | payer MEDICARE, MEDICAID, SELFPAY ==
[2025-05-07] VITALS (7 sets, daily range): BP systolic 95–133; BP diastolic 68–97; PULSE 97–114; RESP 16–18; TEMP 36.7; O2SAT 96–99
--- NOTE | 2025-05-07 16:54 | XRR_ITS ---
PROCEDURE INFORMATION: Exam: XR Chest Exam date and time: 05/07/2025 5:19 PM Age: 67 years old Clinical indication: Other: AMS; Additional info: Metabolic encephalopathy TECHNIQUE: Imaging protocol: Radiologic exam of the chest. Views: 1 view. COMPARISON: CR (CHEST, ) 04/30/2025 3:47 AM FINDINGS: Lungs: Unremarkable. No consolidation. Pleural spaces: Unremarkable. No pleural effusion. No pneumothorax. Heart/Mediastinum: Cardiomegaly. Bones/joints: Unremarkable. XR/XR chest 1V portable [id number] IMPRESSION: As above.
--- NOTE | 2025-05-07 16:54 | ECG_ITS ---
[facility] Test Date: 2025-05-07 Pat Name: Kristopher Jesus Department: Room: Gender: Male Logistics Tech: : 1958-02-28 Requested By: Tamara Rushing Order Number: [id number] Goodson MD: Gonzales Larson M.D. Measurements Intervals [place] Rate: 110 P: 0 NM: 0 QRS: -16 QRSD: 214 T: 96 QT: 375 QTc: 508 Interpretive Statements ATRIAL FIBRILLATION WITH RAPID VENTRICULAR RESPONSE WITH ABERRANT CONDUCTION OR VENTRICULAR PREMATURE COMPLEXES LBBB Compared to ECG 04/30/2025 05:04:36 Ventricular premature complex(es) now present Aberrant conduction of supraventricular beat(s) now present Electronically Signed On 05-09-2025 17:49:03 GASOLINE SERVICE ATTENDANT by Gonzales Larson M.D. [email or web address] [id number]
--- OUTSIDE RECORDS SUMMARY | 2025-05-07 16:54 | XMS_ITS | Encounter Summary ---
Author Organization [facility] Address [address] [place] [address] Care Team Providers Care Awning Hanger Name Role Phone Unavailable Primary Care Provider Unavailabl e Encounter Details Date Type Department Care Team (Late st Contact Info) Description 05/01/2025 Abstract [facility] Information Management [place] [address] [place] [id number] Provider, Abstract NO ADDRESS ON FILE Social [...] worry about transportation for future doctor visits, mixing picker tender medication, etc.? No 2024 Housing Stability Answer [...] on file Legal Sex Male 10:33 AM COMMUTATOR TESTER Gender Identity Not on file Sexual Orientation Not on file documented as of this encounter Plan of Treatment Upcoming Encounters Date Type Department Care Team (Late st Contact Info) Description 07/01/2025 2:40 PM COMMUTATOR TESTER Office Visit [facility] [address] [place] [address] Tara Jiang MD [address] [place] [address] Brittany Jensen NP [address] [place] [address] Scheduled Procedures Name Priority Associated Diagnoses Date/Ti me CYSTOURETHROSCOPY BLADDER FULGURATION n/a 04/23/2025 1:40 PM COMMUTATOR TESTER documented as of this encounter Procedures Procedure Name Priority Date/Time Associated Diagnosis Comments LIPID PANEL Routine 04/17/2025 documented in this encounter Results * LIPID PANEL (04/17/2025) ABSTRACTED CHOLESTEROL 108 ABSTRACTED TRIGLYCERIDE 100 ABSTRACTED HDL 34 ABSTRACTED LDL CALCULATED 54 Blood 04/17/2025 us Abstract Provider CHEMISTRY ORDERABLES Final Res ult documented in this encounter Visit Diagnoses Not on filedocumented in this encounter
--- OUTSIDE RECORDS SUMMARY | 2025-05-07 16:54 | XMS_ITS | Continuity of Care Document ---
Author Organization [facility] Thelma Kate, [facility] ([facility]) Address [address] [place] [address] Assessment No assessment recorded. Plan of Treatment Reminders Order Date Submit Date Provider Last Modified By Organization Details Last Modified Time Details Appointments None record ed. Lab None record ed. Referral None record ed. Procedures None record ed. Surgeries None record ed. Imaging None record ed. Medication Orders None record ed. Patient TargetsNo targets recorded. Patient Instructions Encounter Date Encounter Id Patient Instructions Last Modified By Organization Details Last Modified Time 03/13/2025 [id number] Attempted to return home over the weekend, did not go well. Unable to care for self. Will d/c mobic and start baclofen 5mg tid prn x 7 days. [email or web address] Not available 03/13/2025 14:54:26 Reason for Referral None Reported. Problems Name Problem SNOMED Code Status Onset Date Resolution Date Notes Provider Name and Address Organization Details Recorded Time Essential hypertension 17371316 Active 2024 [facility] 14:14:51 Gastroesophag eal reflux disease without esophagitis 318180616 Active 2024 [facility] 14:14:52 Vitamin D deficiency 12215712 Active 2024 [facility] 14:14:52 Chronic atrial fibrillation 061252652 Active 2024 [facility]IG [facility] 14:14:53 Chronic congestive heart failure 65201480 Active 2024 CRAIG UNDERWOOD [facility] 14:14:55 Hyperglycemia 31364590 Active 2024 CRAIG UNDERWOOD [facility] 14:14:57 Peripheral vascular disease 738901712 Active 2024 CRAIG UNDERWOOD [facility] 14:14:58 Chronic kidney disease stage 3 666454687 Active 2024 CRAIG UNDERWOOD [facility] 14:14:59 Acute exacerbation of chronic congestive heart failure 793746904 Active 2024 NEFTALYELIA BURKS [facility] 16:33:27 Chronic anemia 813565615 [facility] 16:33:35 Iron deficiency anemia 45312621 Active 20[facility] 16:33:50 Problem Notes None recorded. [...] rate Respiratory rate Body temperature Oxygen saturation Systolic And Diastolic Provider Name and Address Organization Details Last Updated DateTime 5 82 /min 18 /min 98 [degF] 98 % 125/73 mm[Hg] CRAIG UNDERWOOD [facility] 14:52:16 Social History None recorded. Functional Status None recorded. Mental Status None recorded. Family History Nothing Reported. Medical History No medical history recorded. Immunizations Vaccine Type Date Status Note Provider Nam e and Address Organization Details Recorded Time Tdap 01/18/2023 completed Not Available [facility] 04/17/2025 07:12:48 Tdap 03/05/2025 completed Not Available [facility] 04/17/2025 07:12:48 Past Encounters Encounter ID Performer Location Encounter Start Date Encounter Closed Date Diagnosis/Indication Diagnosis SNOMED-CT Code Diagnosis ICD10 Code Diagnosis IMO Codes Diagnosis Note [id number] Ck DO Angelina [facility] ([facility]) [address] [place] [address] 03/06/2025 12:44:43 03/13/2025 14:58:48 Essential hypertension 23685531 I10 91399 Gastroesop hageal reflux disease without esophagitis 746012784 K21.9 732326 Vitamin D deficiency 347 65041 E55.9 36349 Chronic at rial fibrillation 637821747 I48.20 537599 Hyperglycemia 03978277 R 73.9 09260 Peripheral vascular disease 243345176 I73.9 56744 Chronic ki dney disease stage 3 328889993 N18.30 6022974471 Morbid obesity 662253253 E66.01 66232 Coronary arteriosclerosis 34852846 I25.10 5659235806 Venous stasis 06211775 I 87.8 77843 Chronic di astolic heart failure 654000490 I50.32 695704 Chronic anemia 370689837 D64.9 [id number] Ck Alfaro DO [facility] ([facility]) [address] [place] [address] 03/13/2025 11:57:49 03/14/2025 14:29:18 Chronic atrial fibrillation 903960493 I48.20 286966 Peripheral vascular disease 365968077 I73.9 57665 Chronic ki dney disease stage 3 884002049 N18.30 4814499766 Essential hypertension 91905639 I10 11938 Chronic co ngestive heart failure 21673328 I50.9 4927962711 Health Concerns Section Related Observation LastModified by Organization Detai ls LastModified Time None Recorded Concern Status LastModified by Organization Details LastModified Time None Recorded Payers Encounter Date Sequence Insurance Name Policy Number Policy Post Covered Member ID Post Member ID Guarantor Name 03/13/2025 1 [facility] (MEDICARE REPLACEMENT/A DVANTAGE - PPO) [id number] Kristopher Jesus [id number] Kristopher Jesus 03/13/2025 2 [place] Kristopher Jesus [id number] Kristopher Jesus Notes Date Note Type Note Provider Name and Address Organization Details Recorded Time 03/13/2025 text/html Care Management - GeneralReported by PatientHPIFor prognosis, patient reportsexpected outcome: improveandprognosis: moderate.ROS as noted in the HPI re-admit to SNF Ck Alfaro DO [address] [place] [address], [phone], [facility] 03/13/2025 15:04:41
--- OUTSIDE RECORDS SUMMARY | 2025-05-07 16:54 | XMS_ITS | Data Portability ---
Author Organization BEVERLY Ortiz [facility] Thelma Kate [facility] Address [address] [address] Assessment No assessment recorded. Plan of Treatment [...] By Organization Details Last Modified Time 03/06/2025 [id number] hospital notes reviewed; admitted with acute chf exacerbation with acute on chronic anemia and acute kidney injury. He has been home bound for a year and has not seen pcp. He has chronic wounds. required transfusion with hgb 6; 8 on discharge; received 5 IV infusions of iron Blood pressure too low, will d/c amlodipine and hydralazine. Weights 2x weekly. 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 Not available 03/11/2025 13:17:40 03/13/2025 [id number] Attempted to return home over the weekend, did not go well. Unable to care for self. Will d/c mobic and start baclofen 5mg tid prn x 7 days. [email or web address] Not available 03/13/2025 14:54:26 04/17/2025 [id number] Discussed arthritis medications and how not safe with recent kidney function. Will repeat BMP and consider alternate medications. [email or web address] Not available 04/17/2025 13:50:34 Reason for Referral None Reported. Problems Name Problem SNOMED Code Status Onset Date Resolution Date Notes Provider Name and Address Organization Details Recorded Time Essential hypertension 55569698 Active 2024 CRAIG UNDERWOOD null, [facility] 14:14:51 Gastroesophag eal reflux disease without esophagitis 081406998 Active 2024 CRAIG alva, [facility] 14:14:52 Vitamin D deficiency 41528165 Active 2024 CRAIG alva, [facility] 14:14:52 Chronic atrial fibrillation 424531595 Active 2024 CRAIG UNDERWOOD [facility], [facility] 14:14:53 Chronic congestive heart failure 42065852 Active 2024 CRAIG UNDERWOOD [facility], [facility] 14:14:55 Hyperglycemia 08359010 Active 2024 CRAIG UNDERWOOD [facility], [facility] 14:14:57 Peripheral vascular disease 512607999 Active 2024 CRAIG UNDERWOOD [facility], [facility] 14:14:58 Chronic kidney disease stage 3 724193323 Active 2024 CRAIG UNDERWOOD [facility], [facility] 14:14:59 Acute exacerbation of chronic congestive heart failure 745497044 Active 2024 NEFTALY MARIA ESTHEREFFKERRI [facility], [facility] 16:33:27 Chronic anemia 654551084 Active 2024 NEFTALY HAEFFNER [facility], [facility] 16:33:35 Iron deficiency anemia 42626889 Active 2024 NEFTALY MARIA ESTHEREFCATHY [facility], [facility] 10/15/202 5 16:33:50 Problem Notes None recorded. Medical [...] /min 24 /min 97.7 [degF] 96 % 110/60 mm[Hg] [facility] 5 14:09:40 Date Recorded Heart rate Respiratory rate Body temperature Oxygen saturation Systolic And Diastolic Provider Name and Address Organization Details Last Updated DateTime 5 82 /min 18 /min 98 [degF] 98 % 125/73 mm[Hg] [facility] 5 14:52:16 Date Recorded Body weight Oxygen saturation Heart rate Respiratory rate Body temperature Systolic And Diastolic Provider Name and Address Organization Details Last Updated DateTime 5 101079. 71 g 96 % 102 /min 16 /min 98 [degF] 105/63 mm[Hg] NEFTALY CHAUHANKERRI [facility] 5 16:31:44 Date Recorded Body weight Heart rate Respiratory rate Body temperature Oxygen saturation Systolic And Diastolic Provider Name and Address Organization Details Last Updated DateTime 5 480905. 1 g 104 /min 17 /min 97.3 [degF] 93 % 104/71 mm[Hg] [facility] 5 13:47:46 Social History None recorded. Functional Status None recorded. Mental Status None recorded. Family History Nothing Reported. Medical History No medical history recorded. Immunizations Vaccine Type Date Status Note Provider Nam e and Address Organization Details Recorded Time Tdap 01/18/2023 completed Not Available [facility] 04/17/2025 07:12:48 Tdap 03/05/2025 completed Not Available [facility] 04/17/2025 07:12:48 Past Encounters Encounter ID Performer Location Encounter Start Date Encounter Closed Date Diagnosis/Indication Diagnosis SNOMED-CT Code Diagnosis ICD10 Code Diagnosis IMO Codes Diagnosis Note [id number] Ck AlfaroDO [facility] ([facility]) [address] [place] [address] 03/06/2025 12:44:43 03/13/2025 14:58:48 Essential hypertension 76956377 I10 43273 Gastroesop hageal reflux disease without esophagitis 073819658 K21.9 313317 Vitamin D deficiency 347 92052 E55.9 17996 Chronic at rial fibrillation 921717106 I48.20 085135 Hyperglycemia 41249631 R 73.9 02344 Peripheral vascular disease 694248461 I73.9 39019 Chronic ki dney disease stage 3 353016006 N18.30 9147814343 Morbid obesity 598253550 E66.01 28585 Coronary arteriosclerosis 47780091 I25.10 2408217187 Venous stasis 47066240 I 87.8 96927 Chronic di astolic heart failure 437561035 I50.32 768810 Chronic anemia 847782809 D64.9 5933687276 [id number] Ck Alfaro DO [facility] ([facility]) [address] [place] [address] 03/13/2025 11:57:49 03/14/2025 14:29:18 Chronic atrial fibrillation 990333834 I48.20 526350 Peripheral vascular disease 566842295 I73.9 44699 Chronic ki dney disease stage 3 216788571 N18.30 7686062546 Essential hypertension 32030608 I10 44458 Chronic co ngestive heart failure 01977842 I50.9 4343779470 [id number] NEDA MATTHEWS PA-C [facility] ([facility]) [address] [place] [address] 03/27/2025 13:56:33 04/09/2025 16:24:54 Post-discharge follow-up 759462872 Z09 [id number] hospital records and labs reviewed Acute exac erbation of chronic congestive heart failure 753420236 I50.9 0316261242 increase lasix 40mg bid metolazone 2.5mg qdcbc, bmp in one week. Iron defic iency anemia 65227594 D50.9 17573132 hgb 8.2,, fe 325mg qd [id number] Ck Alfaro DO [facility] ([facility]) [address] [place] [address] 04/17/2025 07:12:40 04/19/2025 16:21:23 Gastroesophageal reflux disease without esophagitis 317216043 K21.9 211882 Peripheral vascular disease 632951032 I73.9 17657 Chronic anemia 497711168 D64.9 430452 Vitamin D deficiency 347 71258 E55.9 22571 Chronic at rial fibrillation 152443393 I48.20 463817 Chronic ki dney disease stage 3 588890891 N18.30 8533357721 Essential hypertension 25955756 I10 80482 Acute exac erbation of chronic congestive heart failure 062659113 I50.9 0528771079 Hyperglycemia 45657859 R 73.9 88142 Chronic co ngestive heart failure 88008338 I50.9 9513602978 Iron defic iency anemia 24299942 D50.9 99209127 Health Concerns Section Related Observation LastModified by Organization Detai ls LastModified Time None Recorded Concern Status LastModified by Organization Details LastModified Time None Recorded Advance Directives Directive None Recorded Payers Insurance Date Sequence Insurance Name Policy Number Policy Post Covered Member ID Post Member ID Guarantor Name 03/06/2025 3 *SELF PAY* Dilip Jesus 04/16/2025 [place] [facility] Kristopher Jesus [id number] Kristopher Jesus 04/16/2025 2 [place] Kristopher Jesus [id number] Kristopher Jesus 04/16/2025 1 [facility] (MEDICARE REPLACEMENT/A DVANTAGE - PPO) [id number] Kristopher Jesus [id number] Kristopher Jesus Notes Date Note Type Note Provider Name and Address Organization Details Recorded Time 03/06/2025 text/html Care Management - GeneralReported by PatientHPIFor prognosis, patient reportsexpected outcome: improveandprognosis: moderate.ROS as noted in the HPI new admit to after ER visit, plan for therapy and return home. Ck Alfaro DO [address] [place] [address], [phone], [facility], LBenjamínL.C. 03/11/2025 13:17:55 03/13/2025 text/html Care Management - GeneralReported by PatientHPIFor prognosis, patient reportsexpected outcome: improveandprognosis: moderate.ROS as noted in the HPI re-admit to [facility] Ck Alfaro DO [address] [place] [address], [phone], [facility], Danielle.L.C. 03/13/2025 15:04:41 03/27/2025 text/html Care Management - Congestive Heart Failure (CHF)Reported by PatientHPIFor self care, patient reportsrecent hospitalizationbut reportsweight status: obese,using a beta huey, andusing a diuretic(per notes pt was diuresis off 40 lb. mn has not done a new wt since [...] are no longer swollen. Ck Alfaro DO [address] [place] [address], [phone], [facility] 04/09/2025 15:13:05 04/17/2025 text/html Care Management - GeneralReported by PatientHPIFor prognosis, patient reportsexpected outcome: improveandprognosis: moderate.ROS as noted in the HPI no complaints per staff. Ck Alfaro DO [address] [place] [address], [phone], [facility] 04/17/2025 15:08:44
--- OUTSIDE RECORDS SUMMARY | 2025-05-07 16:54 | XMS_ITS | Continuity of Care Document ---
Author Organization [facility] Thelma Kate, [facility] ([facility]) Address [address] [place] [address] Assessment No assessment recorded. Plan of Treatment Reminders Order Date Submit Date Provider Last Modified By Organization Details Last Modified Time Details Appointments None record ed. Lab None record ed. Referral None record ed. Procedures None record ed. Surgeries None record ed. Imaging None record ed. Medication Orders None record ed. Patient TargetsNo targets recorded. Patient InstructionsNo instructions recorded. Reason for Referral None Reported. Problems Name Problem SNOMED Code Status Onset Date Resolution Date Notes Provider Name and Address Organization Details Recorded Time Essential hypertension 73252587 Active 2024 [facility] 14:14:51 Gastroesophag eal reflux disease without esophagitis 036357684 Active 2024 [facility] 14:14:52 Vitamin D deficiency 85318427 Active 2024 [facility] 14:14:52 Chronic atrial fibrillation 643740711 Active 2024 [facility]jamín 14:14:53 Chronic congestive heart failure 54215097 Active 2024 [facility] 5 14:14:55 Hyperglycemia 15023118 Active 2024 CRAIG UNDERWOOD [facility] 5 14:14:57 Peripheral vascular disease 800475084 Active 2024 [facility] 5 14:14:58 Chronic kidney disease stage 3 832784381 Active 2024 [facility] 14:14:59 Acute exacerbation of chronic congestive heart failure 781305566 Active 2024 NEFTALYELIA GUTIERREZKERRI [facility] 16:33:27 Chronic anemia 335304383 Active 2024 [facility] 16:33:35 Iron deficiency anemia 68996975 Active 2024 NEFTALY BRENDAKERRI [facility] 16:33:50 Problem Notes None [...] t Available Vitals Date Recorded Body weight Oxygen saturation Heart rate Respiratory rate Body temperature Systolic And Diastolic Provider Name and Address Organization Details Last Updated DateTime 5 640982. 71 g 96 % 102 /min 16 /min 98 [degF] 105/63 mm[Hg] NEFTALY GUTIERREZCATHY [facility] 16:31:44 Social History None recorded. Functional Status None recorded. Mental Status None recorded. Family History Nothing Reported. Medical History No medical history recorded. Immunizations Vaccine Type Date Status Note Provider Nam e and Address Organization Details Recorded Time Tdap 01/18/2023 completed Not Available [facility] 04/17/2025 07:12:48 Tdap 03/05/2025 completed Not Available [facility] 04/17/2025 07:12:48 Past Encounters Encounter ID Performer Location Encounter Start Date Encounter Closed Date Diagnosis/Indication Diagnosis SNOMED-CT Code Diagnosis ICD10 Code Diagnosis IMO Codes Diagnosis Note [id number] Ck Alfaro [facility] ([facility]) [address] [place] [address] 03/06/2025 12:44:43 03/13/2025 14:58:48 Essential hypertension 18865292 I10 45944 Gastroesop hageal reflux disease without esophagitis 101750985 K21.9 074475 Vitamin D deficiency 347 41494 E55.9 40561 Chronic at rial fibrillation 207270134 I48.20 321024 Hyperglycemia 18475854 R 73.9 59989 Peripheral vascular disease 636417990 I73.9 63888 Chronic ki dney disease stage 3 618769287 N18.30 4136391004 Morbid obesity 900433266 E66.01 60133 Coronary arteriosclerosis 18524390 I25.10 1940285355 Venous stasis 05975492 I 87.8 78274 Chronic di astolic heart failure 485676831 I50.32 095674 Chronic anemia 820342197 D64.9 5805560511 [id number] Ck AlfaroDO [facility] ([facility]) [address] [place] [address] 03/13/2025 11:57:49 03/14/2025 14:29:18 Chronic atrial fibrillation 669711968 I48.20 238106 Peripheral vascular disease 534202586 I73.9 46346 Chronic ki dney disease stage 3 906888227 N18.30 3684214872 Essential hypertension 78944523 I10 87597 Chronic co ngestive heart failure 91998617 I50.9 0954523824 [id number] NEDA MATTHEWS PA-C [facility] ([facility]) [address] [place] [address] 03/27/2025 13:56:33 04/09/2025 16:24:54 Post-discharge follow-up 029674923 Z09 [id number] hospital records and labs reviewed Acute exac erbation of chronic congestive heart failure 191550498 I50.9 8630672933 increase lasix 40mg bid metolazone 2.5mg qdcbc, bmp in one week. Iron defic iency anemia 94205582 D50.9 61805223 hgb 8.2,, fe 325mg qd Health Concerns Section Related Observation LastModified by Organization Detai ls LastModified Time None Recorded Concern Status LastModified by Organization Details LastModified Time None Recorded Payers Encounter Date Sequence Insurance Name Policy Number Policy Post Covered Member ID Post Member ID Guarantor Name 03/27/2025 1 [facility] (MEDICARE REPLACEMENT/A DVANTAGE - PPO) [id number] Kristopher Jesus [id number] Kristopher Jesus 03/27/2025 2 [place] Kristopher Jesus [id number] Kristopher Jesus Notes Date Note Type Note Provider Name and Address Organization Details Recorded Time 03/27/2025 text/html Care Management - Congestive Heart [...] better. legs are no longer swollen. Ck Alfaro, DO [address] [place], [address], [facility] 04/09/2025 15:13:05
--- OUTSIDE RECORDS SUMMARY | 2025-05-07 16:54 | XMS_ITS | Continuity of Care Document ---
Author Organization [facility] Thelma Kate, [facility] ([facility]) Address [address] [place] [address] Assessment No assessment recorded. Plan of Treatment [...] By Organization Details Last Modified Time 04/17/2025 [id number] Discussed arthritis medications and how not safe with recent kidney function. Will repeat BMP and consider alternate medications. [email or web address] Not available 04/17/2025 13:50:34 Reason for Referral None Reported. Problems Name Problem SNOMED Code Status Onset Date Resolution Date Notes Provider Name and Address Organization Details Recorded Time Essential hypertension 29518349 Active 2024 [facility] 14:14:51 Gastroesophag eal reflux disease without esophagitis 789200489 Active 2024 [facility] 14:14:52 Vitamin D deficiency 60881752 Active 2024 [facility] 14:14:52 Chronic atrial fibrillation 655969080 Active 2024 [facility] InstituteJacobLBree 14:14:53 Chronic congestive heart failure 47750452 Active 2024 CRAIG UNDERWOOD [facility] 14:14:55 Hyperglycemia 66528561 Active 2024 CRAIG UNDERWOOD [facility] 14:14:57 Peripheral vascular disease 566153004 Active 2024 CRAIG UNDERWOOD [facility] 14:14:58 Chronic kidney disease stage 3 581332206 Active 2024 CRAIG UNDERWOOD [facility] 14:14:59 Acute exacerbation of chronic congestive heart failure 823522798 Active 20[facility] 16:33:27 Chronic anemia 202320843 Active 2024 [facility] 16:33:35 Iron deficiency anemia 42558291 Active 2024 [facility] 16:33:50 Problem Notes None [...] Address Organization Details Last Updated DateTime 5 661924. 1 g 104 /min 17 /min 97.3 [degF] 93 % 104/71 mm[Hg] CRAIG UNDERWOOD [facility] 13:47:46 Social History None recorded. Functional Status None recorded. Mental Status None recorded. Family History Nothing Reported. Medical History No medical history recorded. Immunizations Vaccine Type Date Status Note Provider Nam e and Address Organization Details Recorded Time Tdap 01/18/2023 completed Not Available [facility] 04/17/2025 07:12:48 Tdap 03/05/2025 completed Not Available [facility] 04/17/2025 07:12:48 Past Encounters Encounter ID Performer Location Encounter Start Date Encounter Closed Date Diagnosis/Indication Diagnosis SNOMED-CT Code Diagnosis ICD10 Code Diagnosis IMO Codes Diagnosis Note [id number] NEDA MATTHEWS PA-C [facility] ([facility]) [address] [place] [address] 03/27/2025 13:56:33 04/09/2025 16:24:54 Post-discharge follow-up 304121509 Z09 [id number] hospital records and labs reviewed Acute exac erbation of chronic congestive heart failure 424157009 I50.9 6623996703 increase lasix 40mg bid metolazone 2.5mg qdcbc, bmp in one week. Iron defic iency anemia 84655698 D50.9 19638296 hgb 8.2,, fe 325mg qd [id number] Ck Alfaro DO [facility] ([facility]) [address] [place] [address] 04/17/2025 07:12:40 04/19/2025 16:21:23 Gastroesophageal reflux disease without esophagitis 881048660 K21.9 288698 Peripheral vascular disease 976271217 I73.9 26689 Chronic anemia 154619748 D64.9 805863 Vitamin D deficiency 347 00347 E55.9 06547 Chronic at rial fibrillation 533974675 I48.20 323754 Chronic ki dney disease stage 3 503781021 N18.30 1654656035 Essential hypertension 76946751 I10 90083 Acute exac erbation of chronic congestive heart failure 831139547 I50.9 3985301411 Hyperglycemia 32323287 R 73.9 65511 Chronic co ngestive heart failure 75715197 I50.9 1187983334 Iron defic iency anemia 18438220 D50.9 70680013 Health Concerns Section Related Observation LastModified by Organization Detai ls LastModified Time None Recorded Concern Status LastModified by Organization Details LastModified Time None Recorded Payers Encounter Date Sequence Insurance Name Policy Number Policy Post Covered Member ID Post Member ID Guarantor Name 04/17/2025 1 [facility] (MEDICARE REPLACEMENT/A DVANTAGE - PPO) [id number] Kristopher Jesus [id number] Kristopher Jesus 04/17/2025 2 [place] Kristopher Jesus [id number] Kristopher Jesus Notes Date Note Type Note Provider Name and Address Organization Details Recorded Time 04/17/2025 text/html Care Management - GeneralReported by PatientHPIFor prognosis, patient reportsexpected outcome: improveandprognosis: moderate.ROS as noted in the HPI no complaints per staff. Ck Alfaro, DO [address] [place] [address], [phone], [facility] 04/17/2025 15:08:44
--- OUTSIDE RECORDS SUMMARY | 2025-05-07 16:54 | XMS_ITS | Encounter Summary ---
Author Organization [facility] [employer], [facility] Address [address] [place] [address] Phone Care Team Providers Care Bench Loom Weaver Name Role Phone Unavailable Primary Care Provider Unavailabl e Reason for Visit * Reason Onset Date Comments HFU 04/30/2025 Encounter Details Date Type Department Care Team (Late st Contact Info) Description 04/30/2025 Telephone [facility] [employer], [facility] [address] [place] [address] Uvaldo Huber MD [address] [place] [address] Social History Tobacco Use Types Packs/Day Years Used Date Smoking Tobacco: Never Assessed Sex and Gender Information Value Date Recorded Sex Assigned at Not on file Legal Sex Male 9:19 AM EST Gender Identity Not on file Sexual Orientation Not on file documented as of this encounter Miscellaneous Notes * Telephone Encounter - Awa Shook MA - 05/02/2025 4:05 PM CST Pt. Contacted and med list has been reviewed for his follow up. Thank you * Telephone Encounter - Awa Shook MA - 04/30/2025 10:30 AM CST Pt. Contacted and scheduled an apt. In [place]. Pt. Did not have current medications with him, they were with a woman named Ange, who takes care of them Requested a call back later or he would call. Thank you * Telephone Encounter - Karyna Verduzco - 04/30/2025 9:05 AM CST Hospital Follow Up: Kristopher Jesus was admitted at [facility] and will need follow up with our office. Follow up Labs: bmp in 1 week Follow Up Appointment: 1 month Prior to appointment Labs: N/A Thanks Karyna Verduzco [facility] * Telephone Encounter - Karyna Verduzco - 04/30/2025 9:04 AM CST Patient: Kristopher Jesus : 02/28/1958 [facility] [place]: [facility] Chart Number: [id number] Hospital: [facility] Room: [facility] Attending Provider: UVALDO HUBER MD Referring Provider: Bijan Maravilla MD Admit Date: 04/20/2025 Consult Date: 04/22/2025 Discharge Date: 04/30/2025 Disposition: SNF (Assisted Facility) Discharge Comment: Assessment/Plan 1.Acute kidney injury- secondary to dehydration, and possible obstructive uropathy. Renal function improving, Cr down to 1.76. Excellent UO 2.4 L /24 hrs. Holding diuretics. BP stable currently. Avoid nephrotoxins. CBI off. Urology following. Will follow labs over the weekend and see PRN. 2. Hematuria- resolved. Urology following. 3. Systolic HF- EF 30%. Does not appear to be decompensated, suspect some intravascular volume depletion. Holding diuretics. Now off IVF. Discharged by: Alissa Thompson on 04/30/2025 Follow-up: Yes Follow-up Timin month Follow-up Provider: UVALDO HUBER MD Follow-up Location: Follow-up Notes/Orders/Labs: BMP in 1 week documented in this encounter Plan of Treatment Upcoming Encounters Date Type Department Care Team (Late st Contact Info) Description 05/15/2025 11:30 AM BUNDLE TIER Office Visit [facility] [address] [place] [phone] Modesta Mohan NP [address] [facility] [address] [place] [address] Scheduled Orders Name Type Priority Associated Diagnoses Orde r Schedule Basic metabolic panel Lab Routine Acute nontraumatic kidney injury, not otherwise specified (HCC) Expected: 05/07/2025 (Approximate), Expires: 05/30/2026 documented as of this encounter Visit Diagnoses Diagnosis Acute nontraumatic kidney injury, not otherwise specified (HCC)- Primary documented in this encounter
--- OUTSIDE RECORDS SUMMARY | 2025-05-07 16:54 | XMS_ITS | Encounter Summary ---
Author Organization [facility] Address [address] [place] [address] Care Team Providers Care Live In Companion Name Role Phone Unavailable Primary Care Provider Unavailabl e Encounter Details Date Type Department Care Team (Late st Contact Info) Description 05/01/2025 Orders Only [facility] Information Management [employer] [address] [place] [phone] Provider, Abstract NO ADDRESS ON FILE Social [...] on file Legal Sex Male 10:33 AM WAREHOUSE RECEIVER Gender Identity Not on file Sexual Orientation Not on file documented as of this encounter Plan of Treatment Upcoming Encounters Date Type Department Care Team (Late st Contact Info) Description 07/01/2025 2:40 PM WAREHOUSE RECEIVER Office Visit [facility] [address] [place] [address] Tara Jiang MD [address] [place] [address] Brittany Jensen NP [address] [place] [address] Scheduled Procedures Name Priority Associated Diagnoses Date/Ti me CYSTOURETHROSCOPY BLADDER FULGURATION n/a 04/23/2025 1:40 PM WAREHOUSE RECEIVER documented as of this encounter Procedures Procedure Name Priority Date/Time Associated Diagnosis Comments COMPREHENSIVE METABOLIC PANEL Routine 04/19/2025 1:46 PM WAREHOUSE RECEIVER ECHO LIMITED W DOPPLER AND COLOR FLOW Routine 04/18/2025 1:53 PM WAREHOUSE RECEIVER BASIC METABOLIC PANEL Routine 04/18/2025 1:48 PM WAREHOUSE RECEIVER COMPREHENSIVE METABOLIC PANEL Routine 04/18/2025 1:47 PM WAREHOUSE RECEIVER COMPREHENSIVE METABOLIC PANEL Routine 04/17/2025 1:51 PM WAREHOUSE RECEIVER documented in this encounter Results * COMPREHENSIVE METABOLIC PANEL (04/19/2025 1:46 PM WAREHOUSE RECEIVER) Blood us Abstract Provider CHEMISTRY ORDERABLES Final Res ult * ECHO LIMITED W DOPPLER AND COLOR FLOW (04/18/2025 1:53 PM WAREHOUSE RECEIVER) us Abstract Provider US ORDERABLES Final Result * BASIC METABOLIC PANEL (04/18/2025 1:48 PM WAREHOUSE RECEIVER) Blood us Abstract Provider CHEMISTRY ORDERABLES Final Res ult * COMPREHENSIVE METABOLIC PANEL (04/18/2025 1:47 PM WAREHOUSE RECEIVER) Blood us Abstract Provider CHEMISTRY ORDERABLES Final Res ult * COMPREHENSIVE METABOLIC PANEL (04/17/2025 1:51 PM WAREHOUSE RECEIVER) Blood us Abstract Provider CHEMISTRY ORDERABLES Final Res ult documented in this encounter Visit Diagnoses Not on filedocumented in this encounter
--- OUTSIDE RECORDS SUMMARY | 2025-05-07 16:54 | XMS_ITS | Encounter Summary ---
Author Organization [facility] Address [address] [place] [address] Phone Care Team Providers Care Ent Surgeon Name Role Phone Unavailable Primary Care Provider Unavailabl e Encounter Details Date Type Department Care Team (Late st Contact Info) Description 05/07/2025 Orders Only [facility] [address] [place] [address] Uvaldo Huber MD [address] [place] [address] Acute nontraumatic kidney injury, not otherwise specified (HCC) Social History Tobacco Use Types Packs/Day Years Used Date Smoking Tobacco: Never Smokeless Tobacco: Never Sex and Gender Information Value Date Recorded Sex Assigned at Not on file Legal Sex Male 9:19 AM EST Gender Identity Not on file Sexual Orientation Not on file documented as of this encounter Plan of Treatment Upcoming Encounters Date Type Department Care Team (Late st Contact Info) Description 05/15/2025 11:30 AM FRONT OFFICE SECRETARY Office Visit [facility] [address] [place] [phone] Modesta Mohan NP [address] [place] [address] documented as of this encounter Visit Diagnoses Diagnosis Acute nontraumatic kidney injury, not otherwise specified (HCC) documented in this encounter
--- OUTSIDE RECORDS SUMMARY | 2025-05-07 16:54 | XMS_ITS ---
Author Organization [facility] are Care Team Providers Care Vessel Specialist Name Role Phone Ck Alfaro Unavailable Unavailable Chavez Meehan Unavailable Unavailable Gina Saavedra Unavailable Unavailable Eron, Tony Unavailable Unavailable Allergies and adverse reactions Code CodeSystem Substance Reaction Severity StartDate Concern Status 7984 RXNORM Penicillin Unknown 03/05/2025 active Care Team Name Role Address Phone Organization Dates Ck Alfaro PCP [address] [place], [address], [place] (Office): [facility] 03/05/2025 - present Chavez Meehan [address] [place], [address], [place] (Office): : [facility] 03/05/2025 - present Gina Saavedra [address] [place], [address], [place] (Office): : [facility] 03/05/2025 - present Tony Littlejohn [address] [place] [address], [address], [facility] (Office): [facility] 03/05/2025 - present Encounters Encounter Type Code Code System Description Performer Discharge Disposition Service Delivery Location Date Ambulatory Encounter CPT Code = [id number] Acute exacerbation of chronic obstructive pulmonary disease [facility] Address: [address] [place] [address]. 03/05 Ambulatory Encounter CPT Code = [id number] Acute hypercapnic respiratory failure [facility] Address: [address] [place] [address]. 03/05 Ambulatory Encounter CPT Code = [id number] Chronic hypoxemic respiratory failure [facility] Address: [address] [place] [address]. 03/05 Ambulatory Encounter CPT Code = [id number] Heart failure [facility] Address: [address] [place] [address]. 03/05 Ambulatory Encounter CPT Code = [id number] Osteoarthritis of knee [facility] Address: [address] [place] [address]. 03/05 Ambulatory Encounter CPT Code = [id number] Atherosclerosis of coronary artery without angina pectoris [facility] Address: [address] [place] [address]. 03/05 Ambulatory Encounter CPT Code = [id number] Chronic kidney disease stage 3 [facility] Address: [address] [place] [address]. 03/05 Ambulatory Encounter CPT Code = [id number] Gastroesophageal reflux disease without esophagitis [facility] Address: [address] [place] [address]. 03/05 Ambulatory Encounter CPT Code = [id number] Nutritional deficiency disorder [facility] Address: [address] [place], [place] [address], [place]. 03/05 Ambulatory Encounter CPT Code = [id number] Anemia [facility] Address: [address] [place] [address]. 03/05 Ambulatory Encounter CPT Code = [id number] Anemia of chronic disease [facility] Address: [address] [place] [address]. 03/05 Ambulatory Encounter CPT Code = [id number] Dyspnea [facility] Address: [address] [place] [address]. 03/05 Ambulatory Encounter CPT Code = [id number] Hypertensive heart failure [facility] Address: [address] [place] [address]. 03/05 Ambulatory Encounter CPT Code = [id number] Morbid obesity [facility] Address: [address] [place] [address]. 03/05 Ambulatory Encounter CPT Code = [id number] Peripheral vascular disease [facility] Address: [address] [place] [address]. 03/05 Ambulatory Encounter CPT Code = [id number] Atrial fibrillation [facility] Address: [address] [place] [address]. 03/05 Ambulatory Encounter CPT Code = [id number] Need for personal care assistance [facility] Address: [address] [place] [address]. 03/05 Ambulatory Encounter CPT Code = [id number] Hyperlipidemia [facility] Address: [address] [place] [address]. 03/05 Ambulatory Encounter CPT Code = [id number] Prediabetes [facility] Address: [address] [place] [address], [address] [place] [address]. 03/05 Ambulatory Encounter CPT Code = [id number] Obstructive sleep apnea syndrome [facility] Address: [address] [place] [address], [address] [place] [address]. 03/05 Goals Section Goals Description Status Target Date All goals will be reviewed a nd updated as needed with completion of the assessment process of the [place] unless otherwise stated in the individualized goal Active 06/16/2025 Kristopher will be free from s/s x of complications of cardiac problems through the review date. Active 06/16/2025 Kristopher will experience some weight loss and increased ability to perform ADLs, such as toilet transfer, by next review date. Active 06/16/2025 Kristopher will maintain current level of function in ADL ability, such as getting up out of bed through the review date. Active 06/16/2025 Enhanced Barrier Precautions will be utilized pe r protocol daily Active 06/16/2025 Resident will not have adver se effects r/t usage of medications with Black Box Warnings. Active 06/16/2025 Resident will remain free fr om s/s Covid-19 virus through review date Active 06/16/2025 The resident will be free of falls through the r eview date. Active 06/16/2025 The resident will be free of symptoms of dehydration and maintain moist mucous membranes, good skin turgor. Active 06/16/2025 The resident will have no s/ sx of poor oxygen absorption through the review date. Active 06/16/2025 The resident will maintain l ab values within acceptable parameters per MD through review date. Active 06/16/2025 The resident will maintain o r develop clean and intact skin by the review date. Active 06/16/2025 The resident will remain melanie e of complications related to altered hematological status through the review date. Active 06/16/19 26 The resident will verbalize adequate relief of pain or ability to cope with incompletely relieved pain through the review date. Active 06/16/2025 [Resident name] will remain free of complications related to PVD through review date. Active 06/16/2025 Functional Status Code Name Recorded Time Value Entered By Ambulation 04/29/2025 Not assessed gtooley Ambulation 04/29/2025 Not assessed gtooley Ambulation 04/29/2025 Not assessed gtooley Ambulation 04/29/2025 Not assessed gtooley Bathing 04/16/2025 Total Dependence ncollins Dressing 04/29/2025 Not assessed gtooley Feeding or Eating 04/29/2025 Not assessed gtooley Toileting 04/30/2025 Not assessed melissabard Transferring 04/29/2025 Not assessed gtooley Immunizations Immunization Status Vaccine Details Vaccine Code CodeSystem Date Notes Influenza cancelled Influenza, high-dose, split virus, quadrivalent, injectable, preservative free 197 CVX created date: 03/20/2025 consent date: 03/20/2025 Educated by on 03/20/2025 Influenza cancelled Influenza, high-dose, split virus, quadrivalent, injectable, preservative free 197 CVX created date: 03/18/2025 consent date: 03/15/2025 TB 2 Step Mantoux Skin Test completed tuberculin skin test; unspecified formulation lotNumber: [id number] expiry: 03/13/2026 Mfg: PAR Pharmacautical Given 0.1 ml Left Forearm intradermally Step 1 of Multi-step with next step required 98 CVX created date: 04/09/2025 consent date: 04/08/2025 administer ed date: 04/09/2025 Educated by on 04/09/2025 TB 2 Step Mantoux Skin Test new tuberculin skin test; unspecified formulation 98 CVX created date: 04/09/2025 consent date: 04/08/2025 TB 2 Step Mantoux Skin Test completed tuberculin skin test; unspecified formulation lotNumber: [id number] expiry: 03/13/2026 Mfg: PAR Pharmacautical Given 1.0 unit Left Forearm intradermally Step 1 of Multi-step with next step required 98 CVX created date: 03/05/2025 consent date: 03/05/2025 administer ed date: 03/05/2025 Educated by on 03/05/2025 Prevnar 23 cancelled pneumococcal polysaccharide vaccine, 23 valent 33 CVX created date: 03/18/2025 consent date: 03/15/2025 Moderna Bivalent cancelled SARS-COV-2 (COVID-19) vaccine, mRNA, spike protein, LNP, bivalent, preservative free, 50 mcg/0.5 mL or 25 mcg/0.25 mL dose 229 CVX created date: 03/18/2025 consent date: 03/15/2025 Medications Section Medication Name Status Code CodeSystem Dose Route Frequency Admin Type Sig Text Start Date End Date Indication Furosemide Oral Tablet 40 MG active 07432 8 RXNORM 40 mg Oral two times a day Routin e Give 40 mg by mouth two times a day for CHF 2024 - CHF Amiodarone HCl Oral Tablet 200 MG active 17046 8 RXNORM 200 mg Oral one time a day Routin e Give 200 mg by mouth one time a day for a fib 2024 - a fib Valsartan Oral Tablet 160 MG active 61166 1 RXNORM 160 mg Oral one time a day Routin e Give 160 mg by mouth one time a day for htn 2024 - htn Carvedilol Oral Tablet 3.125 MG active 36788 4 RXNORM 3.125 mg Oral two times a day Routin e Give 3.125 mg by mouth two times a day for htn 2024 - htn Pantoprazol e Sodium Tablet Delayed Release 40 MG active 61449 0 RXNORM 1 table t Oral two times a day Routin e Give 1 table t by mouth two times a day for GERD 2024 - GERD Cholecalcif edson Oral Tablet aborted 1 table t Oral one time a day Routin e Give 1 table t by mouth one time a day for vit def 04/02 vit def Rivaroxaban Oral Tablet 20 MG aborted 66312 86 RXNORM 20 mg Oral one time a day Routin e Give 20 mg by mouth one time a day for pvd 04/02 pvd Gemfibrozil Oral Tablet 600 MG active 40158 9 RXNORM 600 mg Oral two times a day Routin e Give 600 mg by mouth two times a day for hld 2024 - hld Tuberculin PPD Solution 5 UNIT/0.1[place] [address] 2 RXNORM 0.1 ml Intrad ermal one [...] istra tions 03/06 TB (Tuberculos is) Screening 48864 2 RXNORM 0.1 ml Intrad ermal one [...] istra tions 04/02 TB (Tuberculos is) Screening Cough Drops Lozenge 5 MG active 91394 8 RXNORM 1 lozen ge Oral as needed PRN Give 1 lozen ge by mouth every 4 hours as neede d for cough Only for alert resid ents in which swall owing and safet y aware ness are not a silvestre rn. May keep bedsi de. 2024 - cough Albuterol Sulfate Nebulizatio n Solution (2.5 MG/3ML) 0.083% active 15448 8 RXNORM 3 neri liter Inhala tion as needed PRN 3 neri liter inhal e orall y via nebul izer every 4 hours as neede d for Dyspn ea; conge stion 2024 - Dyspnea; congestion Ammonium Lactate External Cream 12 % aborted 72730 0 RXNORM n/a n/a Topica l every day shift Routin e Apply to Left Lower Leg topic ally every day shift for dry, flaky skin 04/01 dry, flaky skin Tuberculin PPD Solution 5 UNIT/0.[place] [address] 2 RXNORM 0.1 ml Intrad ermal one time a day Routin e Injec t 0.1 ml intra derma lly one time a day for TB (Tube rculo sis) Scree humberto for 1 Admin istra tions AND Injec t 0.1 ml intra derma lly one time a day every 14 day(s ) for TB (Tube rculo sis) Scree humberto for 1 Admin istra tions 03/26 TB (Tuberculos is) Screening 40066 2 RXNORM 0.1 ml Intrad ermal one time a day Routin e Injec t 0.1 ml intra derma lly one time a day for TB (Tube rculo sis) Scree humberto for 1 Admin istra tions AND Injec t 0.1 ml intra derma lly one time a day every 14 day(s ) for TB (Tube rculo sis) Scree humberto for 1 Admin istra tions 04/23 TB (Tuberculos is) Screening Amiodarone HCl Oral Tablet [place] [address] 8 RXNORM 1 table t Oral one time a day Routin e Give 1 table t by mouth one time a day for 5 Days 03/31 - Metolazone Tablet 2.5 MG active 9 RXNORM 1 table t Oral one time a day Routin e Give 1 table t by mouth one time a day for HYPER TENSI VE HEART DISEA SE WITH HEART FAILU RE (I11. 0) 2024 - HYPERTENSIV E HEART DISEASE WITH HEART FAILURE (I11.0) Potassium Chloride ER Oral Tablet Extended Release 20 MEQ active 6 RXNORM 2 table t Oral two times a day Routin e Give 2 table t by mouth two times a day for Elect rolyt e repla cemen t 2024 - Electrolyte replacement Acetaminoph en ER Oral Tablet Extended Release 650 MG active 65753 99 RXNORM 2 table t Oral two times a day Routin e Give 2 table t by mouth two times a day for Pain 2024 - Pain Ferrous Sulfate Oral Tablet 325 (65 Fe) MG active 03859 5 RXNORM 1 table t Oral one time a day Routin e Give 1 table t by mouth one time a day for ANEMI A, UNSPE CIFIE D 2024 - ANEMIA, UNSPECIFIED Cholecalcif edson Tablet 400 UNIT active 54198 3 RXNORM 1 table t Oral one time a day Routin e Give 1 table t by mouth one time a day for CHRON IC SUJATA MEDEIROS SE, STAGE 3 UNSPE CIFIE D (N18. 30) 2024 - CHRONIC KIDNEY DISEASE, STAGE 3 UNSPECIFIED (N18.30) Rivaroxaban Oral Tablet 20 MG aborted 71550 86 RXNORM 20 mg Oral in the evening Routin e Give 20 mg by mouth in the eveni ng for pvd 04/18 pvd Multivitami n Adult Oral Tablet active 1 table t Oral one time a day Routin e Give 1 table t by mouth one time a day 2024 - - Rivaroxaban Oral Tablet 15 MG active 24195 82 RXNORM 1 table t Oral one time a day Routin e Give 1 table t by mouth one time a day 2024 - - Mental Status Section Date Assessment Total Score Description 04/17/2025 CAM 0 No delirium ind icated 03/29/2025 BIMS 15 cognitively int act CAM 0 No delirium ind icated PHQ-9 00 Insurance Providers Plan of Treatment Section Interventions Intervention Code Code System Display Name Proposed D ate Problems Problem # Description Date of onset Resolved Date Code CodeSystem Concern Status 1 GASTRO-ESOPHAGEAL REFLUX DISEASE WITHOUT ESOPHAGITIS 04/18/[address] active 2 NUTRITIONAL DEFICIENCY, UNSPECIFIED 04/16/[address] active 3 ANEMIA, UNSPECIFIED 03/27/[address] active 4 ACUTE RESPIRATORY FAILURE WITH HYPERCAPNIA 03/25/[address] active 5 ANEMIA IN OTHER CHRONIC DISEASES CLASSIFIED ELSEWHERE 03/25/[address] active 6 CHRONIC OBSTRUCTIVE PULMONARY DISEASE WITH (ACUTE) EXACERBATION 03/25/[address] active 7 CHRONIC RESPIRATORY FAILURE WITH HYPOXIA 03/25/[address] active 8 HEART FAILURE, UNSPECIFIED 03/25/[address] active 9 DYSPNEA, UNSPECIFIED 03/17/[address] active 10 ATHEROSCLEROTIC HEART DISEASE OF [place] CORONARY ARTERY WITHOUT ANGINA PECTORIS 03/05/[address] active 11 CHRONIC KIDNEY DISEASE, STAGE 3 UNSPECIFIED 03/05/[address] active 12 HYPERLIPIDEMIA, UNSPECIFIED 03/05/[address] active 13 HYPERTENSIVE HEART DISEASE WITH HEART FAILURE 03/05/[address] active 14 MORBID (SEVERE) OBESITY DUE TO EXCESS CALORIES 03/05/[address] active 15 NEED FOR ASSISTANCE WITH PERSONAL CARE 03/05/[address] active 16 OBSTRUCTIVE SLEEP APNEA (ADULT) (PEDIATRIC) 03/05/[address] active 17 OSTEOARTHRITIS OF KNEE, UNSPECIFIED 03/05/[address] active 18 PERIPHERAL VASCULAR DISEASE, UNSPECIFIED 03/05/[address] active 19 PREDIABETES 03/05/[address] active 20 UNSPECIFIED ATRIAL FIBRILLATION 03/05/[address] active Reason for Referral No Reasons for Referral Entered Diagnostic Results Laboratory Test Results Code Code System Date Test Observation Result Interpretation Reference Range Status Notes LP783 9-6 LOINC 04/11 Complete Blood Count Completed Result for: Kristopher Jesus ( [birth year], M) 789-8 [facility] 04/10 RBC Value: 3.42 Units: 10*6/uL Low 4.63-6.08 Final 6690- 2 [facility] 04/10 WBC Value: 8.9 Units: x10^3/u L Normal 4.23-9.07 Final 742-7 [facility] 04/10 MONO# Value: 0.6 Units: x10^3/u L Normal 0.30-0.82 Final 711-2 [facility] 04/10 EOS# Value: 0.0 Units: x10^3/u L Low 0.04-0.54 Final 704-7 [facility] 04/10 BASO# Value: 0.0 Units: x10^3/u L Low 0.01-0.08 Final 751-8 INC 04/10 NEUT# Value: 7.6 Units: x10^3/u L High 1.78-5.38 Final 736-9 LOINC 04/10 LYMPH# Value: 0.6 Units: x10^3/u L Low 1.32-3.57 Final 777-3 LOINC 04/10 PLT Value: 302 Units: x10^3/u L Normal 163-337 Final 785-6 [facility] 04/10 MCH Value: 26.9 Units: pg Normal 25.7-32.2 Final 718-7 [facility] 04/10 HGB Value: 9.2 Units: g/dL Low 13.7-17.5 Final 785-6 [facility] 04/10 MCHC Value: 31.5 Units: g/dL Low 32.3-36.5 Final 787-2 [facility] 04/10 MCV Value: 85.3 Units: fL Normal 79.0-92.2 Final 777-3 [facility] 04/10 MPV Value: 7.7 Units: fL Low 9.4-12.4 Final 770-8 [facility] 04/10 NEUT% Value: 85.4 Units: % High 34.0-67.9 Final 14583 -0 [facility] 04/10 LYMPH% Value: 6.9 Units: % Low 21.8-53.1 Final 5905- 5 [facility] 04/10 MONO% Value: 6.7 Units: % Normal 5.3-12.2 Final 788-0 [facility] 04/10 RDW Value: 21.9 Units: % High 11.6-14.4 Final 713-8 [facility] 04/10 EOS% Value: 0.5 Units: % Low 0.8-7.0 Final 706-2 [facility] 04/10 BASO% Value: 0.5 Units: % Normal 0.2-1.2 Final 4544- 3 [facility] 04/10 HCT Value: 29.2 Units: % Low 40.1-51.0 Final LP783 9-6 [facility] 04/11 Complete Blood Count / Cogent- Completed Result for: Kristopher Jesus ( [birth year] 56, M) 123-9 9999- 9 [facility] 04/10 Cogent- - Normal Final Social History Social History Observation Description Start Date End Date Code Code System Current Smoking Status Tobacco smoking consumption unknown 108318103 SNOMED CT Sex Assigned At Male 02/28/1958 33535-9 [facility] Gender Identity Sexual Orientation Vital Signs Code Code System Vitals Name Values and Units Timing Information 8310-5 [facility] Body Temperature Value=97.3 Units= F 04/30/2025 9279-1 [facility] Respiratory Rate Value=18.0 Units=/m in 04/30/2025 8462-4 [facility] Blood Pressure-Diastolic Value=86 Un its=mmHg 04/30/2025 8480-6 [facility] Blood Pressure-Systolic Bkbdn=538 Un its=mmHg 04/30/2025 8867-4 [facility] Heart rate Hgsqi=718.0 Units=/min 04/30/2025 92816-4 [facility] O2 % BldC Oximetry Value=96.0 Units= % 04/30/2025 45478-9 [facility] Pain Level Value=0.0 03/27/2025 57147-5 [facility] Weight Ttzwx=946.0 Units=Lbs 01/2025 8302-2 [facility] Height Value=71.0 Units=Inches 03/05/2025
--- OUTSIDE RECORDS SUMMARY | 2025-05-07 16:54 | XMS_ITS | Encounter Summary ---
Author Organization [facility] Address 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 No 2024 Housing Stability Answer [...] on file Legal Sex Male 10:[address] [place] Gender Identity Not on file Sexual Orientation Not on file documented as of this encounter Plan of Treatment Upcoming Encounters Date Type Department Care Team (Late st Contact Info) Description 07/01/2025 2:[address] [facility] Office Visit [facility] [address] [place] [address] Tara Jiang MD [address] [place] [address] Brittany Jensen NP [address] [place] [address] Scheduled Procedures Name Priority Associated Diagnoses Date/Ti id CYSTOURETHROSCOPY BLADDER FULGURATION n/a 04/23/2025 1:[address] [facility]IAISON documented as of this encounter Visit Diagnoses Not on filedocumented in this encounter
--- OUTSIDE RECORDS SUMMARY | 2025-05-07 16:54 | XMS_ITS | Clinical Summary ---
Author Organization [facility] Address [address] [place] [address] Care Team Providers Care Esl Professor Name Role Phone Unavailable Primary Care Provider [...] Encounters Date Type Department Care Team Description 05/01/2025 Abstract [facility] Health Information Management [place] [address] [place] [address] Provider, Abstract 05/01/2025 Orders Only [facility] Information Management [place] [address] [place] [phone] Provider, Abstract 04/30/2025 External Device Data STL ABSTRACTION Provider, Abstract 04/27/2025 8:42 AM MARKET ASSET PROTECTION MANAGER Anesthesia Event [facility] Operating Room [address] [place] [phone] Shayan León MD [place], Roman, SUZY 04/27/2025 8:16 AM MARKET ASSET PROTECTION MANAGER - 04/27/2025 9:31 AM MARKET ASSET PROTECTION MANAGER Surgery [facility] Operating Room [address] [place] [phone] Rishabh Reed MD CYSTOURETHROSCOPY BLADDER FULGURATION 04/26/2025 Telephone [facility] [address] [facility] [address] [place] [phone] Bere Guzman RN Procedure 04/23/2025 External Device Data STL ABSTRACTION Provider, Abstract 04/23/2025 External Device Data STL ABSTRACTION Provider, Abstract 04/23/2025 External Device Data STL ABSTRACTION Provider, Abstract 04/22/2025 Surgery [facility] Operating Room [address] [place] [address] Rishabh Reed MD Not Performed CASE CANCELLED 04/20/2025 1:00 AM MARKET ASSET PROTECTION MANAGER - 04/29/2025 4:47 PM MARKET ASSET PROTECTION MANAGER Hospital Encounter [facility] [address]iac [address] [place] [phone] Bijan Maravilla MD Elgayesh, MD Cole Hassan Christina, MD Khan, Amina, MD Sohail, Carlos Carroll MD Atrial fibrillation with rapid ventricular response (CMS/HCC) Discharge Disposition: Intermediate Care Facility 04/20/2025 Travel [...] worry about transportation for future doctor visits, 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 No 2024 Housing Stability [...] on file Legal Sex Male 10:33 AM MARKET ASSET PROTECTION MANAGER Gender Identity Not on file Sexual Orientation Not on file Last Filed Vital Signs Vital Sign Reading Time Taken Comments Blood Pressure 140/79 04/29/2025 4:31 PM MARKET ASSET PROTECTION MANAGER Pulse 109 04/29/2025 4:31 PM MARKET ASSET PROTECTION MANAGER Temperature 36.8 C (98.3 F) 04/29/2025 4:31 PM MARKET ASSET PROTECTION MANAGER Respiratory Rate 19 04/29/2025 4:31 PM MARKET ASSET PROTECTION MANAGER Oxygen Saturation 94% 04/29/2025 4:31 PM MARKET ASSET PROTECTION MANAGER Inhaled Oxygen Concentration - - Weight 151.2 kg (333 lb 6 oz) 04/29/2025 5:16 AM MARKET ASSET PROTECTION MANAGER Height 180.3 cm (5' 11 ) 04/20/2025 1:15 AM MARKET ASSET PROTECTION MANAGER Body Mass Index 46.5 04/20/2025 1:15 AM MARKET ASSET PROTECTION MANAGER Plan of Treatment Upcoming Encounters Date Type Department Care Team (Late st Contact Info) Description 07/01/2025 2:40 PM MARKET ASSET PROTECTION MANAGER Office Visit [facility] [address] [facility] [address] [place] [address] Tara iJang MD [address] [place] [address] Brittany Jensen NP [address] [place] [address] Scheduled Procedures Name Priority Associated Diagnoses Date/Ti me CYSTOURETHROSCOPY BLADDER FULGURATION n/a 04/23/2025 1:40 PM MARKET ASSET PROTECTION MANAGER Health Maintenance Due Date Last Done Comments [...] 02/28/2007 ZOSTER VACCINE (1 of 2) 02/28/2007 [place] Prev entative Visit/Annual Wellness Visit 06/13/2024 INFLUENZA VACCINE (#1) 2025 DTAP/TDAP/TD VACCINES (3 - Td or Tdap) 03/05/2035, 01/18/2023 Procedures Procedure Name Priority Date/Time Associated Diagnosis Comments TELEMETRY REPORT 05/01/2025 2:14 AM MARKET ASSET PROTECTION MANAGER TELEMETRY REPORT 04/30/2025 11:03 AM MARKET ASSET PROTECTION MANAGER TELEMETRY REPORT 04/30/2025 2:09 AM MARKET ASSET PROTECTION MANAGER HEMOGLOBIN AND HEMATOCRIT Routine 04/29/2025 11:43 AM MARKET ASSET PROTECTION MANAGER PTT Routine 04/29/2025 4:34 AM MARKET ASSET PROTECTION MANAGER UNFRACTIONATED HEPARIN ACTIVITY Timed Study 04/29/2025 4:34 AM MARKET ASSET PROTECTION MANAGER MAGNESIUM LEVEL Routine 04/29/2025 4:34 AM MARKET ASSET PROTECTION MANAGER BASIC METABOLIC PANEL Routine 04/29/2025 4:34 AM MARKET ASSET PROTECTION MANAGER CBC WITH DIFFERENTIAL Routine 04/29/2025 4:34 AM MARKET ASSET PROTECTION MANAGER HEMOGLOBIN AND HEMATOCRIT Routine 04/28/2025 8:43 PM MARKET ASSET PROTECTION MANAGER HEMOGLOBIN AND HEMATOCRIT Routine 04/28/2025 1:21 PM MARKET ASSET PROTECTION MANAGER UNFRACTIONATED HEPARIN ACTIVITY Timed Study 04/28/2025 4:55 AM MARKET ASSET PROTECTION MANAGER MAGNESIUM LEVEL Routine 04/28/2025 4:55 AM MARKET ASSET PROTECTION MANAGER BASIC METABOLIC PANEL Routine 04/28/2025 4:55 AM MARKET ASSET PROTECTION MANAGER CBC WITH DIFFERENTIAL Routine 04/28/2025 4:55 AM MARKET ASSET PROTECTION MANAGER TROPONIN 6 HR, 5TH GEN Timed Study 12:09 AM MARKET ASSET PROTECTION MANAGER HEMOGLOBIN AND HEMATOCRIT Routine 04/28/2025 12:09 AM MARKET ASSET PROTECTION MANAGER TROPONIN 2 HR, 5TH GEN Timed Study 8:25 PM MARKET ASSET PROTECTION MANAGER TROPONIN BASELINE, 5TH GEN Stat 04/27/2025 6:16 PM MARKET ASSET PROTECTION MANAGER HEMOGLOBIN AND HEMATOCRIT Routine 04/27/2025 6:16 PM MARKET ASSET PROTECTION MANAGER EKG 12-LEAD Stat 04/27/2025 5:53 PM MARKET ASSET PROTECTION MANAGER HEMOGLOBIN AND HEMATOCRIT Routine 04/27/2025 3:39 PM MARKET ASSET PROTECTION MANAGER POC GLUCOSE Routine 04/27/2025 9:42 AM MARKET ASSET PROTECTION MANAGER CO ANES INSERT CATH, ART, PERCUT, SHORTTERM Routine 04/27/2025 9:38 AM MARKET ASSET PROTECTION MANAGER CO ANES INSERT ENDOTRACHEAL AIRWAY Routine 04/27/2025 8:59 AM MARKET ASSET PROTECTION MANAGER CO CYSTO W/DESTRUCTION OF LESIONS 04/27/2025 8:16 AM MARKET ASSET PROTECTION MANAGER UNFRACTIONATED HEPARIN ACTIVITY Timed Study 04/27/2025 5:28 AM MARKET ASSET PROTECTION MANAGER MAGNESIUM LEVEL Routine 04/27/2025 5:28 AM MARKET ASSET PROTECTION MANAGER BASIC METABOLIC PANEL Routine 04/27/2025 5:28 AM MARKET ASSET PROTECTION MANAGER CBC WITH DIFFERENTIAL Routine 04/27/2025 5:28 AM MARKET ASSET PROTECTION MANAGER HEMOGLOBIN AND HEMATOCRIT Routine 04/27/2025 12:23 AM MARKET ASSET PROTECTION MANAGER UNFRACTIONATED HEPARIN ACTIVITY Timed Study 04/27/2025 12:22 AM MARKET ASSET PROTECTION MANAGER HEMOGLOBIN AND HEMATOCRIT Routine 04/26/2025 5:58 PM MARKET ASSET PROTECTION MANAGER UNFRACTIONATED HEPARIN ACTIVITY Timed Study 04/26/2025 5:57 PM MARKET ASSET PROTECTION MANAGER UNFRACTIONATED HEPARIN ACTIVITY Timed Study 04/26/2025 11:40 AM MARKET ASSET PROTECTION MANAGER HEMOGLOBIN AND HEMATOCRIT Routine 04/26/2025 11:40 AM MARKET ASSET PROTECTION MANAGER UNFRACTIONATED HEPARIN ACTIVITY Timed Study 04/26/2025 4:56 AM MARKET ASSET PROTECTION MANAGER MAGNESIUM LEVEL Routine 04/26/2025 4:56 AM MARKET ASSET PROTECTION MANAGER BASIC METABOLIC PANEL Routine 04/26/2025 4:56 AM MARKET ASSET PROTECTION MANAGER CBC WITH DIFFERENTIAL Routine 04/26/2025 4:56 AM MARKET ASSET PROTECTION MANAGER EKG 12-LEAD Stat 04/26/2025 4:01 AM MARKET ASSET PROTECTION MANAGER HEMOGLOBIN AND HEMATOCRIT Routine 04/26/2025 12:35 AM MARKET ASSET PROTECTION MANAGER HEMOGLOBIN AND HEMATOCRIT Routine 04/25/2025 5:09 PM MARKET ASSET PROTECTION MANAGER UNFRACTIONATED HEPARIN ACTIVITY Timed Study 04/25/2025 5:09 PM MARKET ASSET PROTECTION MANAGER EKG 12-LEAD Stat 04/25/2025 11:36 AM MARKET ASSET PROTECTION MANAGER HEMOGLOBIN AND HEMATOCRIT Routine 04/25/2025 11:11 AM MARKET ASSET PROTECTION MANAGER UNFRACTIONATED HEPARIN ACTIVITY Timed Study 04/25/2025 11:11 AM MARKET ASSET PROTECTION MANAGER UNFRACTIONATED HEPARIN ACTIVITY Timed Study 04/25/2025 4:40 AM MARKET ASSET PROTECTION MANAGER MAGNESIUM LEVEL Routine 04/25/2025 4:40 AM MARKET ASSET PROTECTION MANAGER BASIC METABOLIC PANEL Routine 04/25/2025 4:40 AM MARKET ASSET PROTECTION MANAGER CBC WITH DIFFERENTIAL Routine 04/25/2025 4:40 AM MARKET ASSET PROTECTION MANAGER HEMOGLOBIN AND HEMATOCRIT Routine 04/24/2025 4:32 PM MARKET ASSET PROTECTION MANAGER PT EVAL AND TREAT Pending Discharge 04/24/2025 2:09 PM MARKET ASSET PROTECTION MANAGER UNFRACTIONATED HEPARIN ACTIVITY Timed Study 04/24/2025 10:35 AM MARKET ASSET PROTECTION MANAGER EKG 12-LEAD Pending Discharge 04/24/2025 8:53 AM MARKET ASSET PROTECTION MANAGER HEMOGLOBIN AND HEMATOCRIT Routine 04/24/2025 5:10 AM MARKET ASSET PROTECTION MANAGER MAGNESIUM LEVEL Routine 04/24/2025 5:10 AM MARKET ASSET PROTECTION MANAGER BASIC METABOLIC PANEL Routine 04/24/2025 5:10 AM MARKET ASSET PROTECTION MANAGER UNFRACTIONATED HEPARIN ACTIVITY Timed Study 04/24/2025 2:44 AM MARKET ASSET PROTECTION MANAGER HEMOGLOBIN AND HEMATOCRIT Routine 04/24/2025 12:39 AM MARKET ASSET PROTECTION MANAGER HEMOGLOBIN AND HEMATOCRIT Routine 04/23/2025 8:40 PM MARKET ASSET PROTECTION MANAGER UNFRACTIONATED HEPARIN ACTIVITY Timed Study 04/23/2025 7:42 PM MARKET ASSET PROTECTION MANAGER UNFRACTIONATED HEPARIN ACTIVITY Timed Study 04/23/2025 1:24 PM MARKET ASSET PROTECTION MANAGER HEMOGLOBIN AND HEMATOCRIT Routine 04/23/2025 1:24 PM MARKET ASSET PROTECTION MANAGER ECHO TRANSESOPHAGEAL WITH CARDIOVERSION Routine 04/23/2025 10:00 AM MARKET ASSET PROTECTION MANAGER UNFRACTIONATED HEPARIN ACTIVITY Timed Study 04/23/2025 6:11 AM MARKET ASSET PROTECTION MANAGER HEMOGLOBIN AND HEMATOCRIT Routine 04/23/2025 6:11 AM MARKET ASSET PROTECTION MANAGER MAGNESIUM LEVEL Routine 04/23/2025 3:12 AM MARKET ASSET PROTECTION MANAGER BASIC METABOLIC PANEL Routine 04/23/2025 3:12 AM MARKET ASSET PROTECTION MANAGER CBC WITH DIFFERENTIAL Routine 04/23/2025 3:12 AM MARKET ASSET PROTECTION MANAGER HEMOGLOBIN AND HEMATOCRIT Routine 04/22/2025 11:22 PM MARKET ASSET PROTECTION MANAGER UNFRACTIONATED HEPARIN ACTIVITY Timed Study 04/22/2025 11:22 PM MARKET ASSET PROTECTION MANAGER POC GLUCOSE Routine 04/22/2025 9:52 PM MARKET ASSET PROTECTION MANAGER HEMOGLOBIN AND HEMATOCRIT Routine 04/22/2025 9:24 PM MARKET ASSET PROTECTION MANAGER UNFRACTIONATED HEPARIN ACTIVITY Timed Study 04/22/2025 2:30 PM MARKET ASSET PROTECTION MANAGER POTASSIUM LEVEL Timed Study 04/22/2025 2:30 PM MARKET ASSET PROTECTION MANAGER HEMOGLOBIN AND HEMATOCRIT Routine 04/22/2025 2:30 PM MARKET ASSET PROTECTION MANAGER US RENAL Routine 04/22/2025 1:19 PM MARKET ASSET PROTECTION MANAGER EXTRA TUBE (URINE MELENDEZ) Routine 04/22/2025 1:04 PM MARKET ASSET PROTECTION MANAGER PROTEIN , RANDOM URINE Routine 1:04 PM MARKET ASSET PROTECTION MANAGER URINALYSIS W/REFLEX MICROSCOPIC Routine 04/22/2025 1:04 PM MARKET ASSET PROTECTION MANAGER UREA NITROGEN, RANDOM URINE Routine 04/22/2025 1:04 PM MARKET ASSET PROTECTION MANAGER SODIUM, RANDOM URINE Routine 04/22/2025 1:04 PM MARKET ASSET PROTECTION MANAGER ECHOCARDIOGRAM W/ CONTRAST AGENT Routine 04/22/2025 10:37 AM MARKET ASSET PROTECTION MANAGER MAGNESIUM LEVEL Routine 04/22/2025 4:45 AM MARKET ASSET PROTECTION MANAGER BASIC METABOLIC PANEL Routine 04/22/2025 4:45 AM MARKET ASSET PROTECTION MANAGER CBC WITH DIFFERENTIAL Routine 04/22/2025 4:45 AM MARKET ASSET PROTECTION MANAGER HEMOGLOBIN AND HEMATOCRIT Routine 04/22/2025 12:01 AM MARKET ASSET PROTECTION MANAGER HEMOGLOBIN AND HEMATOCRIT Routine 04/21/2025 6:13 PM MARKET ASSET PROTECTION MANAGER HEMOGLOBIN AND HEMATOCRIT Routine 04/21/2025 12:49 PM MARKET ASSET PROTECTION MANAGER US VENOUS DOPPLER LEG BILATERAL Routine 04/21/2025 12:05 PM MARKET ASSET PROTECTION MANAGER MAGNESIUM LEVEL Routine 04/21/2025 4:39 AM MARKET ASSET PROTECTION MANAGER BASIC METABOLIC PANEL Routine 04/21/2025 4:39 AM MARKET ASSET PROTECTION MANAGER CBC WITH DIFFERENTIAL Routine 04/21/2025 4:39 AM MARKET ASSET PROTECTION MANAGER PTH INTACT Routine 04/21/2025 4:39 AM MARKET ASSET PROTECTION MANAGER HEMOGLOBIN AND HEMATOCRIT Routine 04/20/2025 11:21 PM MARKET ASSET PROTECTION MANAGER HEMOGLOBIN AND HEMATOCRIT Routine 04/20/2025 6:29 PM MARKET ASSET PROTECTION MANAGER TROPONIN Routine 04/20/2025 1:58 PM MARKET ASSET PROTECTION MANAGER FERRITIN Routine 04/20/2025 1:58 PM MARKET ASSET PROTECTION MANAGER IRON, TIBC, AND PERCENT SATURATION Routine 04/20/2025 1:58 PM MARKET ASSET PROTECTION MANAGER PTT Routine 04/20/2025 1:58 PM MARKET ASSET PROTECTION MANAGER UNFRACTIONATED HEPARIN ACTIVITY Timed Study 04/20/2025 1:58 PM MARKET ASSET PROTECTION MANAGER BASIC METABOLIC PANEL Routine 04/20/2025 1:58 PM MARKET ASSET PROTECTION MANAGER PT EVAL AND TREAT Routine 04/20/2025 11:31 AM MARKET ASSET PROTECTION MANAGER OT EVAL AND TREAT Routine 04/20/2025 11:31 AM MARKET ASSET PROTECTION MANAGER OT EVAL AND TREAT Routine 04/20/2025 11:30 AM MARKET ASSET PROTECTION MANAGER PT EVAL AND TREAT Routine 04/20/2025 11:30 AM MARKET ASSET PROTECTION MANAGER BLOOD CULTURE Stat 04/20/2025 10:53 AM MARKET ASSET PROTECTION MANAGER BLOOD CULTURE Stat 04/20/2025 10:53 AM MARKET ASSET PROTECTION MANAGER HEMOGLOBIN AND HEMATOCRIT Routine 04/20/2025 10:52 AM MARKET ASSET PROTECTION MANAGER BLOOD CULTURE Routine 04/20/2025 10:33 AM MARKET ASSET PROTECTION MANAGER BLOOD CULTURE Routine 04/20/2025 10:33 AM MARKET ASSET PROTECTION MANAGER VITAMIN D 25 HYDROXY Routine 04/20/2025 7:09 AM MARKET ASSET PROTECTION MANAGER TROPONIN 6 HR, 5TH GEN Timed Study 7:09 AM MARKET ASSET PROTECTION MANAGER LACTIC ACID Stat 04/20/2025 2:39 AM MARKET ASSET PROTECTION MANAGER EKG 12-LEAD Routine 04/20/2025 2:30 AM MARKET ASSET PROTECTION MANAGER COMPREHENSIVE METABOLIC PANEL Routine 04/20/2025 2:29 AM MARKET ASSET PROTECTION MANAGER CBC WITH DIFFERENTIAL Routine 04/20/2025 2:29 AM MARKET ASSET PROTECTION MANAGER TROPONIN BASELINE, 5TH GEN Stat 04/20/2025 2:29 AM MARKET ASSET PROTECTION MANAGER MAGNESIUM LEVEL Routine 04/20/2025 2:29 AM MARKET ASSET PROTECTION MANAGER T4 FREE Routine 04/20/2025 2:29 AM MARKET ASSET PROTECTION MANAGER TSH Routine 04/20/2025 2:29 AM MARKET ASSET PROTECTION MANAGER COMPREHENSIVE METABOLIC PANEL Routine 04/19/2025 1:46 PM MARKET ASSET PROTECTION MANAGER ECHO LIMITED W DOPPLER AND COLOR FLOW Routine 04/18/2025 1:53 PM MARKET ASSET PROTECTION MANAGER BASIC METABOLIC PANEL Routine 04/18/2025 1:48 PM MARKET ASSET PROTECTION MANAGER COMPREHENSIVE METABOLIC PANEL Routine 04/18/2025 1:47 PM MARKET ASSET PROTECTION MANAGER COMPREHENSIVE METABOLIC PANEL Routine 04/17/2025 1:51 PM MARKET ASSET PROTECTION MANAGER LIPID PANEL Routine 04/17/2025 from Last 3 Months Results * TELEMETRY REPORT (05/01/2025 2:14 AM MARKET ASSET PROTECTION MANAGER) Only the most recent of3 resultswithin the time period is included. us Provider Scanning ECG ORDERABLES Final Result * (ABNORMAL) HEMOGLOBIN AND HEMATOCRIT (04/29/2025 11:43 AM MARKET ASSET PROTECTION MANAGER) Only the most recent of27 resultswithin the time period is included. [facility] HEMOGLOBIN 9.2(L) 14.0 - 18.0 g/dL 04/29/2025 11:57 AM MARKET ASSET PROTECTION MANAGER [facility] HEMATOCRIT 30.3(L) 41.0 - 53.0 % 04/29/2025 11:57 AM MARKET ASSET PROTECTION MANAGER [facility] Blood Venipuncture / Unknown 04/29/2025 11:43 AM MARKET ASSET PROTECTION MANAGER 04/29/2025 11:52 AM MARKET ASSET PROTECTION MANAGER Rishabh Reed MD HEMATOLOGY ORDERABLES Cristy l Result Performing Organization Address [facility] Co de Phone Number [facility] CLIA # [id number] [address] [place] [id number] * UNFRACTIONATED HEPARIN MONITORING (04/29/2025 4:34 AM MARKET ASSET PROTECTION MANAGER) Only the most recent of18 resultswithin the time period is included. [facility] ANTI-XA UNFRAC HEP 04/29/2025 5:58 AM MARKET ASSET PROTECTION MANAGER [facility] Comment:Patient receiving an ti-coagulation therapy (eliquis/apixaban), test invalid. Redraw test after anti-coagulation therapy discontinued (5 days) if test is still indicated. This test has not been charged. Blood Venipuncture / Unknown 04/29/2025 4:34 AM MARKET ASSET PROTECTION MANAGER 04/29/2025 5:41 AM MARKET ASSET PROTECTION MANAGER Carlos Zendejas MD HEMATOLOGY ORDERABLES Fi nal Result Performing Organization Address [facility] Co de Phone Number [facility] CLIA # [id number] [address] [place] [phone] * (ABNORMAL) CBC WITH DIFFERENTIAL (04/29/2025 4:34 AM MARKET ASSET PROTECTION MANAGER) Only the most recent of9 resultswithin the time period is included. [facility] WBC 9.3 4.8 - 10.8 K/uL 04/29/2025 5:51 AM MARKET ASSET PROTECTION MANAGER [facility] RBC 3.49(L) 4.60 - 6.20 M/uL 04/29/2025 5:51 AM MARKET ASSET PROTECTION MANAGER [facility] HEMOGLOBIN 9.1(L) 14.0 - 18.0 g/dL 04/29/2025 5:51 AM [facility] HEMATOCRIT 30.1(L) 41.0 - 53.0 % 04/29/2025 5:51 AM [facility] MCV 86.2 84.0 - 103.0 fL 04/29/2025 5:51 AM [facility] MCH 26.1(L) 27.0 - 34.0 pg 04/29/2025 5:51 AM [facility] MCHC 30.2 30.0 - 35.0 g/dL 04/29/2025 5:51 AM [facility] PLATELETS 213 140 - 440 K/uL 04/29/2025 5:51 AM [facility] MPV 9.7 8.9 - 12.8 fL 04/29/2025 5:51 AM [facility] RDW 19.9(H) 11.0 - 14.5 % 04/29/2025 5:51 AM [facility] RDW-STDEV 60.8(H) 37.0 - 54.0 fL 04/29/2025 5:51 AM [facility] NEUTROPHILS 81(H) 42 - 75 % 04/29/2025 5:51 AM [facility] LYMPHOCYTES 9(L) 24 - 44 % 04/29/2025 5:51 AM [facility] MONOCYTES 6 2 - 10 % 04/29/2025 5:51 AM [facility] EOSINOPHILS 2 0 - 7 % 04/29/2025 5:51 AM [facility] BASOPHILS 0 0 - 1 % 04/29/2025 5:51 AM [facility] IMMATURE GRANULOCYTES 2 0 - 2 % 04/29/2025 5:51 AM [facility] NEUTROPHIL ABSOLUTE 7.50 2.00 - 8.00 K/uL 04/29/2025 5:51 AM [facility] LYMPHOCYTE ABSOLUTE 0.82(L) 1.20 - 4.00 K/uL 04/29/2025 5:51 AM [facility] MONOCYTE ABSOLUTE 0.60 0.10 - 0.60 K/uL 04/29/2025 5:51 AM [facility] EOSINOPHIL ABSOLUTE 0.17 0.00 - 0.70 K/uL 04/29/2025 5:51 AM [facility] BASOPHILS ABSOLUTE 0.04 0.00 - 0.20 K/uL 04/29/2025 5:51 AM [facility] IMMATURE GRANULOCYTES ABSOLUTE 0.18(H) 0.00 - 0.10 K/uL 04/29/2025 5:51 AM [facility] SMEAR REVIEWED: NA - Not Applicable 04/29/2025 5:51 AM [facility] Blood Venipuncture / Unknown 04/29/2025 4:34 AM MARKET ASSET PROTECTION MANAGER 04/29/2025 5:42 AM MARKET ASSET PROTECTION MANAGER Rishabh Reed MD HEMATOLOGY ORDERABLES Cristy Result [facility] CLIA # [id number] [address] [place] [id number] * (ABNORMAL) PTT (04/29/2025 4:34 AM MARKET ASSET PROTECTION MANAGER) Only the most recent of2 resultswithin the time period is included. PTT 39.3(H) 24.8 - 37.2 seconds 04/29/2025 6:04 AM [facility] Blood Venipuncture / Unknown 04/29/2025 4:34 AM MARKET ASSET PROTECTION MANAGER 04/29/2025 5:41 AM MARKET ASSET PROTECTION MANAGER Narrative [facility] - 04/29/2025 6:04 AM MARKET ASSET PROTECTION MANAGER Therapeutic Range: Hi-level PE/DVT heparin protocol 80.1 - 95.0 sec Lo-level PE/DVT heparin protocol 70.1 - 85.0 sec Cardiac Heparin Protocol 70.1 - 100.0 sec Carlos Zendejas MD HEMATOLOGY ORDERABLES Fi nal Result Performing Organization Address [facility] Co de Phone Number [facility] CLIA # [id number] [address] [address] * MAGNESIUM LEVEL (04/29/2025 4:34 AM MARKET ASSET PROTECTION MANAGER) Only the most recent of10 resultswithin the time period is included. [facility] MAGNESIUM 2.0 1.6 - 2.4 mg/dL 04/29/2025 6:13 AM [facility] Blood Venipuncture / Unknown 04/29/2025 4:34 AM MARKET ASSET PROTECTION MANAGER 04/29/2025 5:41 AM MARKET ASSET PROTECTION MANAGER Rishabh Reed MD CHEMISTRY ORDERABLES Final Result Performing Organization Address [facility] de Phone Number [facility] CLIA # [id number] [facility] [address] * (ABNORMAL) BASIC METABOLIC PANEL (04/29/2025 4:34 AM MARKET ASSET PROTECTION MANAGER) Only the most recent of11 resultswithin the time period is included. [facility] SODIUM 132(L) 136 - 145 mmol/L 04/29/2025 6:13 AM [facility] POTASSIUM 3.7 3.5 - 5.1 mmol/L 04/29/2025 6:13 AM [facility] [email or web address] [facility] CHLORIDE 97(L) 98 - 107 mmol/L 04/29/2025 6:13 AM [facility] CO2 22 22 - 29 mmol/L 04/29/2025 6:13 AM [facility] CALCIUM 12.1(H) 8.8 - 10.2 mg/dL 04/29/2025 6:13 AM [facility] BUN 44(H) 8 - 23 mg/dL 04/29/2025 6:13 AM [facility] CREATININE 1.47(H) 0.67 - 1.17 mg/dL 04/29/2025 6:13 AM [facility] GLUCOSE 90 74 - 99 mg/dL 04/29/2025 6:13 AM [facility] GFR 52(L) >=60 mL/min/1. 73 sq meter 04/29/2025 6:13 AM [facility] Comment:eGFR calculated with 2020 CKD-EPI equation. Vegetarian diet, extremely high or low muscle mass, and may affect results. Cystatin C with Glomerular Filtration Rate is a suitable alternative for these patients. ANION GAP 13 9 - 20 mmol/L 04/29/2025 6:13 AM [facility] Blood Venipuncture / Unknown 04/29/2025 4:34 AM MARKET ASSET PROTECTION MANAGER 04/29/2025 5:41 AM MARKET ASSET PROTECTION MANAGER Rishabh Reed MD CHEMISTRY ORDERABLES Final Result Performing Organization Address [facility]/ZIP Co de Phone Number [facility] CLIA # [id number] [address] [place] [id number] * (ABNORMAL) TROPONIN 6 HR, 5TH GEN (04/28/2025 12:09 AM MARKET ASSET PROTECTION MANAGER) Only the most recent of2 resultswithin the time period is included. TROPONIN T, 6 HR 5TH GEN 74(H) <=15 ng/L 04/28/2025 12:49 AM [facility] DELTA 6HR TROPONIN T 2 See Interp. 04/28/2025 12:49 AM [facility] Blood Venipuncture / Unknown 04/28/2025 12:09 AM MARKET ASSET PROTECTION MANAGER 04/28/2025 12:17 AM MARKET ASSET PROTECTION MANAGER Narrative [facility] - 04/28/2025 12:49 AM MARKET ASSET PROTECTION MANAGER Troponin elevated. Delta indeterminate. Carlos Zendejas MD CHEMISTRY ORDERABLES Fin al Result Performing Organization Address [facility]/ZIP Co de Phone Number [facility] CLIA # [id number] [address] [place] [address] * (ABNORMAL) TROPONIN 2 HR, 5TH GEN (04/27/2025 8:25 PM MARKET ASSET PROTECTION MANAGER) TROPONIN T, 2 HR 5TH GEN 74(H) <=15 ng/L 04/27/2025 9:10 PM MARKET ASSET PROTECTION MANAGER [facility] DELTA 2HR TROPONIN T 2 See Interp. 04/27/2025 9:10 PM MARKET ASSET PROTECTION MANAGER [facility] Blood Venipuncture / Unknown 04/27/2025 8:25 PM MARK[employer] ASSET PROTECTION MANAGER 04/27/2025 8:38 PM MARKET ASSET PROTECTION MANAGER [facility] - 04/27/2025 9:10 PM MARKET ASSET PROTECTION MANAGER Troponin elevated. Delta not changing. Carlos Zendejas MD CHEMISTRY ORDERABLES Fin al Result Performing Organization Address City/[facility]/ZIP Co de Phone Number [facility] CLIA # [id number] [address] [address] * (ABNORMAL) TROPONIN BASELINE, 5TH GEN (04/27/2025 6:16 PM MARKET ASSET PROTECTION MANAGER) Only the most recent of2 resultswithin the time period is included. TROPONIN T, BASELINE 5TH GEN 72(H) <=15 ng/L 04/27/2025 7:19 PM MARK[employer] ASS[employer] PROTECTION MANAGER [facility] Blood Venipuncture / Unknown 04/27/2025 6:16 PM MARKET ASSET PROTECTION MANAGER 04/27/2025 6:37 PM MARKET ASSET PROTECTION MANAGER [facility] [email or web address] [facility] - 04/27/2025 7:19 PM MARKET ASSET PROTECTION MANAGER Troponin elevated. Carlos Zendejas MD CHEMISTRY ORDERABLES Fin al Result Performing Organization Address City/[facility]/ZIP Co de Phone Number [facility] CLIA # [id number] [address] [place], [place] [address] [place] [address] * EKG 12-LEAD (04/27/2025 5:53 PM MARKET ASSET PROTECTION MANAGER) Only the most recent of5 resultswithin the time period is included. 04/27/2025 5:53 PM MARKET ASSET PROTECTION MANAGER Narrative INTERFACE SYSTEM - 04/28/2025 1:34 PM MARKET ASSET PROTECTION MANAGER [address] [address] Test Date: 2025-04-27 Pat Name: KRISTOPHER LEBLANC Department: 12 Room: [address] [place] [address] Gender: Male [employer] Activities Director: [id number] : 1958-02-28 Requested By: Order Number: [id number] Reading MD: Tara Jiang Measurements Intervals [place] Rate: 94 P: 0 CO: 0 QRS: 81 QRSD: 180 T: 90 QT: 448 QTc: 560 Interpretive Statements Atrial fibrillation LBBB Abnormal ECG Electronically Signed On 04-28-2025 13:34:37 MARKET ASSET PROTECTION MANAGER by Tara Jiang Procedure Note Provider, Historical - 04/28/[address] [address] Test Date: 2025-04-27 Pat Name: KIRSTOPHER LEBLANC Department: 12 Room: [address] [place] [address] Gender: Male [employer] Activities Director: [id number] : 1958-02-28 Requested By: Order Number: [id number] Hazmah GILLESPIE: Tara Jiang Measurements Intervals [place] Rate: 94 P: 0 CO: 0 QRS: 81 QRSD: 180 T: 90 QT: 448 QTc: 560 Interpretive Statements Atrial fibrillation LBBB Abnormal ECG Electronically Signed On 04-28-2025 13:34:37 MARKET ASSET PROTECTION MANAGER by aTra Jiang us Carlos Zendejas MD ECG ORDERABLES Final Re sult INTERFACE SYSTEM Refer to clinic/hospital department * POC GLUCOSE (04/27/2025 9:42 AM MARKET ASSET PROTECTION MANAGER) Only the most recent of2 resultswithin the time period is included. GLUCOSE POC 78 74 - 99 mg/dL 04/27/2025 9:42 AM MARKET ASSET PROTECTION MANAGER [facility] SPECIMEN SOURCE, GLUCOSE POC Capillary 04/27/2025 9:42 AM MARKET ASSET PROTECTION MANAGER [facility] Blood, whole 04/27/2025 9:42 AM MARKET ASSET PROTECTION MANAGER 04/27/2025 9:49 AM MARKET ASSET PROTECTION MANAGER Carlos Zendejas MD POINT OF CARE TESTING Fi nal Result [facility] CLIA # [id number] [address] [place] [address] * CO ANES INSERT CATH, ART, PERCUT, SHORTTERM (04/27/2025 9:38 AM MARKET ASSET PROTECTION MANAGER) Narrative Shayan León MD - 04/27/2025 9:38 AM MARKET ASSET PROTECTION MANAGER Shayan León MD 04/27/2025 9:38 AM Arterial [...] type: radial kit Catheter size: 20 G Dellrose Identification: palpation technique Number of attempts: 1 Successful placement: yes Procedure uneventful Post-procedure: dressing applied and line secured Shayan Lenó MD PROCEDURE/MINOR SURGICAL O RDERABLES Final Result * CO ANES INSERT ENDOTRACHEAL AIRWAY (04/27/2025 8:59 AM MARKET ASSET PROTECTION MANAGER) Narrative Edi Morales CRNA - 04/27/2025 8:59 AM MARKET ASSET PROTECTION MANAGER Edi Morales CRNA 04/27/2025 9:08 AM Airway [...] ECHO TRANSESOPHAGEAL WITH CARDIOVERSION (04/23/2025 10:00 AM MARKET ASSET PROTECTION MANAGER) EJECTION FRACTION EF: INTERFACE SYSTEM 04/23/2025 8:49 AM MARKET ASSET PROTECTION MANAGER Narrative INTERFACE SYSTEM - 04/23/2025 9:56 AM MARKET ASSET PROTECTION MANAGER [facility] Cardiovascular Services Echocardiography Laboratory [address] [place] [address] Transesophageal Echocardiography with Cardioversion Patient: Kristopher Leblanc Study ID: ECHO TRANSESGURDEEPA Gender: M : 02/28/1958 Age: 67 Room: [facility] Study Date: 04/23/2025 Pt Status: Inpatient Study Time: 08:49:44 AM [facility] #: [id number] Ordering:Tara Jiang Fitness Worker: LINDSEY Nurse: Marleni Vazquez Indications and History: [...] septum: Agitated saline contrast study shows no wmbqb-sy-qigt shunt. - Mitral valve: The annulus is [...] transesophageal probe was inserted by the attending principal planner without difficulty. Image quality was adequate. Intravenous [...] Doppler. Agitated saline contrast study shows no rkdin-cj-hxkr shunt. AORTIC VALVE: The valve is trileaflet. [...] (H) pasquale values outside specified reference range. [facility] are accredited with the Intersocietal Accreditation Commission - Echocardiography. Prepared and Electronically Authenticated Aman Robles Confirmed 04/23/2025 09:56 Procedure Note Aman Robles MD - 04/23/2025 [facility] Cardiovascular Services Echocardiography Laboratory [address] [place] [address] Transesophageal Echocardiography with Cardioversion Patient: Kristopher Leblanc Study ID: ECHOTRANSESOPHA Gender: M : 02/28/1958 Age: 67 Room: [facility] Study Date: 04/23/2025 Pt Status: Inpatient Study Time: 08:49:44 AM CSN #: [id number] Ordering:Tara Jiang Fitness Worker: LINDSEY Nurse: Marleni Vazquez Indications and History: [...] septum: Agitated saline contrast study shows no tnqun-tg-skxcxxkuw. - Mitral valve: The annulus is calcified. [...] multiplane transesophageal probe was insertedby the attending principal planner without difficulty. Image quality wasadequate. Intravenous contrast (agitated saline) was administered. Thetransesophageal probe was removed. No intracardiac thrombus was identified. Aftercompletion of transesophageal echocardiogram we proceeded with electricalcardioversion. The rhythm was successfully converted from atrial fibrillation to normalsinus rhythm, using biphasic synchronized shocks with a energy of 200J. Study completion: The patient tolerated the procedure well. Sedation begun [id number] and [id number]. There were no complications. Administered [...] Doppler. Agitated saline contrast study shows no pmwph-tz-bebl shunt. AORTIC VALVE: The valve is trileaflet. [...] (H) pasquale values outside specified reference range. [facility] are accredited with theD[facility] Hospitalsocietal Accreditation Commission - Echocardiography. Prepared and Electronically Authenticated Aman Robles Confirmed 04/23/2025 09:56 us Tara Jiang MD US ORDERABLES Final Result INTERFACE SYSTEM Refer to clinic/hospital department * POTASSIUM LEVEL (04/22/2025 2:30 PM MARKET ASSET PROTECTION MANAGER) Pathologist [facility] POTASSIUM 3.8 3.5 - 5.1 mmol/L 04/22/2025 3:08 PM MARKET ASSET PROTECTION MANAGER [facility] Blood Venipuncture / Unknown 04/22/2025 2:30 PM MARKET ASSET PROTECTION MANAGER 04/22/2025 2:44 PM MARKET ASSET PROTECTION MANAGER us Komal Crandall MD CHEMISTRY ORDERABLES Final Resul t Performing Organization Address [facility]/ZIP Co de Phone Number [facility] CLIA # [id number] [address] [place] [address] * US RENAL (04/22/2025 1:19 PM MARKET ASSET PROTECTION MANAGER) Anatomical Region Laterality Modality Abdomen Ultrasound 04/22/2025 1:19 PM MARKET ASSET PROTECTION MANAGER Impressions 04/22/2025 1:30 PM MARKET ASSET PROTECTION MANAGER IMPRESSION: Please see below. Exam: US RENAL [...] EXTRA TUBE (URINE MELENDEZ) (04/22/2025 1:04 PM MARKET ASSET PROTECTION MANAGER) Urine URINE SPECIMEN OBTAINED BY CLEAN CATCH PROCEDURE / Unknown Collection / Unknown 04/22/2025 1:04 PM MARKET ASSET PROTECTION MANAGER 04/22/2025 1:13 PM MARKET ASSET PROTECTION MANAGER Uvaldo Huber MD URINE ORDERABLES Final Resul t [facility] CLIA # [id number] [address] [place] [address] [place] [address] * (ABNORMAL) UREA NITROGEN/CREATININE RATIO, URINE (04/22/2025 1:04 PM MARKET ASSET PROTECTION MANAGER) UREA NITROGEN, URINE 156 mg/dL 04/22/2025 1:55 PM MARKET ASSET PROTECTION MANAGER [facility] Comment:Reference range not established CREATININE, URINE 15.3(L) 40.0 - 278.0 mg/dL 04/22/2025 1:55 PM MARKET ASSET PROTECTION MANAGER [facility] Comment:Reference Range vari es with fluid intake and diet. UREA/CREAT RATIO, UR 10.2 mg/mg Creatinine 04/22/2025 1:55 PM MARKET ASSET PROTECTION MANAGER [facility] Urine URINE SPECIMEN OBTAINED BY CLEAN CATCH PROCEDURE / Unknown Collection / Unknown 04/22/2025 1:04 PM MARKET ASSET PROTECTION MANAGER 04/22/2025 1:13 PM MARKET ASSET PROTECTION MANAGER Gregorio Rogers MD URINE ORDERABLES Fin al Result Performing Organization Address [facility] Co de Phone Number [facility] CLIA # [id number] [address] [address] * SODIUM, RANDOM URINE (04/22/2025 1:04 PM MARKET ASSET PROTECTION MANAGER) SODIUM, URINE 122 mmol/L 04/22/2025 1:56 PM MARKET ASSET PROTECTION MANAGER [facility] Comment:Reference range not established Urine URINE SPECIMEN OBTAINED BY CLEAN CATCH PROCEDURE / Unknown Collection / Unknown 04/22/2025 1:04 PM MARKET ASSET PROTECTION MANAGER 04/22/2025 1:13 PM MARKET ASSET PROTECTION MANAGER Gregorio Rogers MD URINE ORDERABLES Fin al Result Performing Organization Address [facility] de Phone Number [facility] CLIA # [id number] [facility] [address] * (ABNORMAL) PROTEIN/CREATININE RATIO, URINE (04/22/2025 1:04 PM MARKET ASSET PROTECTION MANAGER) PROTEIN CONCENTRATION 75(H) 0 - 20 mg/dL 04/22/2025 1:56 PM MARKET ASSET PROTECTION MANAGER [facility] CREATININE, URINE 15.3(L) 40.0 - 278.0 mg/dL 04/22/2025 1:56 PM MARKET ASSET PROTECTION MANAGER [facility] Comment:Reference Range vari es with fluid intake and diet. PROTEIN/CREAT RATIO, URINE 4.90(H) 0.00 - 0.19 mg/mg Creatinine 04/22/2025 1:56 PM MARKET ASSET PROTECTION MANAGER [facility] Urine URINE SPECIMEN OBTAINED BY CLEAN CATCH PROCEDURE / Unknown Collection / Unknown 04/22/2025 1:04 PM MARKET ASSET PROTECTION MANAGER 04/22/2025 1:13 PM MARKET ASSET PROTECTION MANAGER us Uvaldo Huber MD URINE ORDERABLES Final Resul t [facility] CLIA # [id number] [address] [address] [place] [address] * (ABNORMAL) URINALYSIS WITH REFLEX MICROSCOPIC (04/22/2025 1:04 PM MARKET ASSET PROTECTION MANAGER) COLOR UA Colorless(A ) Pale to Dark Yellow 04/22/2025 1:23 PM [facility] CLARITY UA Cloudy(A) Clear 04/22/2025 1:23 PM [facility] SPECIFIC GRAVITY UA 1.008 1.003 - 1.035 04/22/2025 1:23 PM [facility] PH UA 6.0 5.0 - 8.0 04/22/2025 1:23 PM [facility] LEUKOCYTE ESTERASE UA 3+(A) Negative 04/22/2025 1:23 PM [facility] NITRITE UA Negative Negative 04/22/2025 1:23 PM [facility] PROTEIN UA 1+(A) Negative 04/22/2025 1:23 PM [facility] GLUCOSE UA Negative Negative 04/22/2025 1:23 PM [facility] KETONES UA Negative Negative 04/22/2025 1:23 PM [facility] UROBILINOGEN UA <2.0 <2.0 mg/dL 1:23 PM [facility] BILIRUBIN UA Negative Negative 04/22/2025 1:23 PM [facility] BLOOD UA 3+(A) Negative 04/22/2025 1:23 PM [facility] WBC UA >100(A) 0 - 2 /hpf 04/22/2025 1:23 PM [facility] RBC UA >100(A) 0 - 2 /hpf 04/22/2025 1:23 PM [facility] BACTERIA UA 1+(A) Negative /hpf 04/22/2025 1:23 PM [facility] HYALINE CAST 0-2 None Seen, 0-2 /lpf 04/22/2025 1:23 PM [facility] Urine URINE SPECIMEN OBTAINED BY CLEAN CATCH PROCEDURE / Unknown Collection / Unknown 04/22/2025 1:04 PM MARKET ASSET PROTECTION MANAGER 04/22/2025 1:13 PM MARKET ASSET PROTECTION MANAGER us Uvaldo Huber MD URINE ORDERABLES Final Resul t [facility] CLIA # [id number] [facility] [place] [address] * ECHOCARDIOGRAM W/ CONTRAST AGENT (04/22/2025 10:37 AM MARKET ASSET PROTECTION MANAGER) EJECTION FRACTION 30 INTERFACE SYSTEM 04/22/2025 9:42 AM MARKET ASSET PROTECTION MANAGER Narrative INTERFACE SYSTEM - 04/22/2025 11:20 AM [facility] Cardiovascular Services Echocardiography Laboratory [address] [place] [address] Transthoracic Echocardiography Patient: Kristopher Leblanc Study ID: ECHO COMPLETE - Gender: M : 02/28/1958 Age: 67 Room: [facility] Study Date: 04/22/2025 Pt Status: Inpatient Study Time: 09:42:33 AM CSN #: [id number] Ordering:Tara Jiang Fitness Worker: ELLIOTT Indications and History: HF, Cardiomyopathy; Initial [...] (H) pasquale values outside specified reference range. [facility] are accredited with the Interspaladin healthcareetal Accreditation Commission - Echocardiography. Prepared and Electronically Authenticated Carlos Brownlee Confirmed 04/22/2025 11:20 Procedure Note Carlos Brownlee MD - 04/22/2025 [facility] Services Echocardiography Laboratory [address] [place] [address] Transthoracic Echocardiography Patient: Kristopher Leblanc Study ID: ECHO COMPLETE- Gender: M : 02/28/1958 Age: 67 Room: [facility] Study Date: 04/22/2025 Pt Status: Inpatient Study Time: 09:42:33 AM CSN #: [id number] Ordering:Tara Jiang Fitness Worker: ELLIOTT Indications and History: HF, Cardiomyopathy; Initial [...] (H) pasquale values outside specified reference range. [facility] are accredited with theD[facility] Accreditation Commission - Echocardiography. Prepared and Electronically Authenticated Carlos Brownlee Confirmed 04/22/2025 11:20 us Tara Jiang MD US ORDERABLES Final Result INTERFACE SYSTEM Refer to clinic/hospital department * US VENOUS DOPPLER LEG BILATERAL (04/21/2025 12:05 PM MARKET ASSET PROTECTION MANAGER) Anatomical Region Laterality Modality Lower Extremity Ultrasound 04/21/2025 10:2 9 AM MARKET ASSET PROTECTION MANAGER Narrative 04/26/2025 11:58 AM MARKET ASSET PROTECTION MANAGER [facility] Cardiovascular Services Noninvasive Vascular Laboratory [address] [place] [address] Noninvasive Vascular Lab Venous Exam Complete Lower Extremity Duplex Patient: Kristopher Leblanc Study ID: US VENOUS DOPPLE Gender: M : 02/28/1958 Age: 67 Room: Height: Weight: BSA: Pt status: Inpatient Study Date: 04/21/2025 Study Time: 10:29:04 AM BSA: Ordering: Maricruz Galvan Interpreting:Leon Mckeon Fitness Worker: Nahomi Howell Indications: [place]. Summary Doppler venous [...] Patent; Normal phasicity; spontaneous; compressible; normal augmentation [facility] is accredited with the Intersocietal Commission for the Accreditation of Vascular Laboratories (ICAVL) Prepared and Electronically Authenticated Leon Mckeon Confirmed 04/26/2025 11:58 Procedure Note Leon Mckeon MD - 04/26/2025 [facility] Services Noninvasive Vascular Laboratory [address] [place] [address] Noninvasive Vascular Lab Venous Exam Complete Lower Extremity Duplex Patient: Kristopher Leblanc Study ID: US VENOUS DOPPLE Gender: M : 02/28/1958 Age: 67 Room: Height: Weight: BSA: Pt status: Inpatient Study Date: 04/21/2025 Study Time: 10:29:04 AM BSA: Ordering: Maricruz Galvan Interpreting:Leon Mckeon Fitness Worker: Nahomi Howell Indications: [place]. Summary Doppler venous [...] saphenous Patent; Normal phasicity; spontaneous;compressible; normal augmentation [facility] is accredited with theIntersocietal Commission for the Accreditation of Vascular Laboratories (ICAVL) Prepared and Electronically Authenticated Leon Mckeon Confirmed 04/26/2025 11:58 us Maricruz Galvan MD US ORDERABLES Final Result * (ABNORMAL) PTH INTACT (04/21/2025 4:39 AM MARKET ASSET PROTECTION MANAGER) Pathologist [facility] PTH INTACT 151.4(H) 17.9 - 58.6 pg/mL 04/21/2025 5:30 AM MARKET ASSET PROTECTION MANAGER [facility] Blood Venipuncture / Unknown 04/21/2025 4:39 AM MARKET ASSET PROTECTION MANAGER 04/21/2025 4:56 AM MARKET ASSET PROTECTION MANAGER Maricruz Galvan MD CHEMISTRY ORDERABLES Final R esult [facility] CLIA # [id number] [address] [facility] [place] [address] * (ABNORMAL) IRON, TIBC, AND PERCENT SATURATION (04/20/2025 1:58 PM MARKET ASSET PROTECTION MANAGER) [facility] IRON 28(L) 59 - 158 ug/dL 04/20/2025 3:55 PM MARKET ASSET PROTECTION MANAGER [facility] TIBC 197(L) 250 - 450 ug/dL 04/20/2025 3:55 PM MARKET ASSET PROTECTION MANAGER [facility] IRON % SATURATION 14(L) 15 - 60 % 04/20/2025 3:55 PM MARKET ASSET PROTECTION MANAGER [facility] Blood Venipuncture / Unknown 04/20/2025 1:58 PM MARKET ASSET PROTECTION MANAGER 04/20/2025 2:27 PM MARKET ASSET PROTECTION MANAGER us Maricruz Galvan MD CHEMISTRY ORDERABLES Final R esult Performing Organization Address City/[facility]/ZIP Co de Phone Number [facility] CLIA # [id number] [address] [address] * (ABNORMAL) TROPONIN (04/20/2025 1:58 PM MARKET ASSET PROTECTION MANAGER) [facility] TROPONIN T, 5TH GEN 152(HH) <=15 ng/L 04/20/2025 5:37 PM MARKET ASSET PROTECTION MANAGER [facility] Blood Venipuncture / Unknown 04/20/2025 1:58 PM MARKET ASSET PROTECTION MANAGER 04/20/2025 2:27 PM MARKET ASSET PROTECTION MANAGER Narrative [facility] - 04/20/2025 5:37 PM MARKET ASSET PROTECTION MANAGER Troponin elevated. us Maricruz Galvan MD CHEMISTRY ORDERABLES Final R esult [facility] CLIA # [id number] [address] [address] [place] [address] * (ABNORMAL) FERRITIN (04/20/2025 1:58 PM MARKET ASSET PROTECTION MANAGER) [facility] FERRITIN 570.3(H) 30.0 - 400.0 ng/mL 04/20/2025 3:55 PM [facility] Blood Venipuncture / Unknown 04/20/2025 1:58 PM MARKET ASSET PROTECTION MANAGER 04/20/2025 2:27 PM MARKET ASSET PROTECTION MANAGER Maricruz Galvan MD CHEMISTRY ORDERABLES Final R esult Performing Organization Address City/[facility]/ZIP Co de Phone Number [facility] CLIA # [id number] [address] [facility] [place] [address] * BLOOD CULTURE (04/20/2025 10:53 AM MARKET ASSET PROTECTION MANAGER) Only the most recent of2 resultswithin the time period is included. [facility] BLOOD CULTURE No growth 04/25/2025 11:41 AM [facility] Blood (Peripheral) Venipuncture / Unknown 04/20/2025 10:53 AM MARKET ASSET PROTECTION MANAGER 04/20/2025 10:58 AM MARKET ASSET PROTECTION MANAGER Pedro [facility] - 04/25/2025 11:41 AM MARKET ASSET PROTECTION MANAGER Specimen processed with suboptimal blood volume collected. us Maricruz Galvan MD MICROBIOLOGY - GENERAL ORDER SABAS Final Result Performing Organization Address [facility] Co de Phone Number [facility] CLIA # [id number] [address] [address] * VITAMIN D 25 HYDROXY (04/20/2025 7:09 AM MARKET ASSET PROTECTION MANAGER) [facility] VITAMIN D TOTAL (25OH) 36 30 - 100 ng/mL 04/20/2025 6:00 PM [facility] Blood Venipuncture / Unknown 04/20/2025 7:09 AM MARKET ASSET PROTECTION MANAGER 04/20/2025 7:24 AM MARKET ASSET PROTECTION MANAGER Pedro [facility] [email or web address] [facility] - 04/20/2025 6:00 PM MARKET ASSET PROTECTION MANAGER Interpretive Data Chart: Deficient: 0 - 20 ng/mL Insufficient: 21 - 29 ng/mL Sufficient: 30 - 100 ng/mL Increased Risk of Hypercalciuria: >100 ng/ml Toxic: >150 ng/ml Maricruz Galvan MD CHEMISTRY ORDERABLES Final R esult Performing Organization Address [facility] Co de Phone Number [facility] CLIA # [id number] [address] [facility] [place] [address] * LACTIC ACID (04/20/2025 2:39 AM MARKET ASSET PROTECTION MANAGER) LACTIC ACID 0.9 <=2.0 mmol/L 04/20/2025 3:07 AM MARKET ASSET PROTECTION MANAGER [facility] Blood Venipuncture / Unknown 04/20/2025 2:39 AM MARKET ASSET PROTECTION MANAGER 04/20/2025 2:43 AM MARKET ASSET PROTECTION MANAGER Gregorio Rogers MD CHEMISTRY ORDERABLES Final Result Performing Organization Address [facility] de Phone Number [facility] CLIA # [id number] [address] [address] [place] [address] * TSH (04/20/2025 2:29 AM MARKET ASSET PROTECTION MANAGER) TSH 2.92 0.27 - 4.20 uIU/mL 04/20/2025 3:17 AM MARKET ASSET PROTECTION MANAGER [facility] Blood Venipuncture / Unknown 04/20/2025 2:29 AM MARKET ASSET PROTECTION MANAGER 04/20/2025 2:36 AM MARKET ASSET PROTECTION MANAGER Gregorio Rogers MD CHEMISTRY ORDERABLES Final Result Performing Organization Address [facility] Co de Phone Number [facility] CLIA # [id number] [address] [place] [address] * T4 FREE (04/20/2025 2:29 AM MARKET ASSET PROTECTION MANAGER) Pathologist [facility] T4 FREE 1.24 0.81 - 1.70 ng/dL 04/20/2025 3:18 AM [facility] Blood Venipuncture / Unknown 04/20/2025 2:29 AM MARKET ASSET PROTECTION MANAGER 04/20/2025 2:36 AM MARKET ASSET PROTECTION MANAGER Gregorio Rogers MD CHEMISTRY ORDERABLES Final Result [facility] CLIA # [id number] [address] [place] [address] * (ABNORMAL) COMPREHENSIVE METABOLIC PANEL (04/20/2025 2:29 AM MARKET ASSET PROTECTION MANAGER) Only the most recent of4 resultswithin the time period is included. [facility] SODIUM 133(L) 136 - 145 mmol/L 04/20/2025 3:39 AM [facility] POTASSIUM 3.2(L) 3.5 - 5.1 mmol/L 04/20/2025 3:39 AM [facility] CHLORIDE 95(L) 98 - 107 mmol/L 04/20/2025 3:39 AM [facility] CO2 22 22 - 29 mmol/L 04/20/2025 3:39 AM [facility] CALCIUM 10.5(H) 8.8 - 10.2 mg/dL 04/20/2025 3:39 AM [facility] BUN 97(H) 8 - 23 mg/dL 04/20/2025 3:39 AM [facility] CREATININE 2.66(H) 0.67 - 1.17 mg/dL 04/20/2025 3:39 AM [facility] GLUCOSE 103(H) 74 - 99 mg/dL 04/20/2025 3:39 AM [facility] TOTAL PROTEIN 7.0 6.4 - 8.3 g/dL 04/20/2025 3:39 AM [facility] ALBUMIN 3.6 3.5 - 5.2 g/dL 04/20/2025 3:39 AM [facility] BILIRUBIN TOTAL 0.5 0.0 - 1.0 mg/dL 04/20/2025 3:39 AM [facility] ALKALINE PHOSPHATASE 51 40 - 129 U/L 04/20/2025 3:39 AM [facility] AST 10 10 - 50 U/L 04/20/2025 3:39 AM [facility] ALT <5 <=50 U/L 04/20/2025 3:39 AM [facility] GFR 25(L) >=60 mL/min/1. 73 sq meter 04/20/2025 3:39 AM [facility] Comment:eGFR calculated with 2020 CKD-EPI equation. Vegetarian diet, extremely high or low muscle mass, and may affect results. Cystatin C with Glomerular Filtration Rate is a suitable alternative for these patients. ANION GAP 16 9 - 20 mmol/L 04/20/2025 3:39 AM [facility] Blood Venipuncture / Unknown 04/20/2025 2:29 AM MARKET ASSET PROTECTION MANAGER 04/20/2025 2:36 AM MARKET ASSET PROTECTION MANAGER Gregorio Rogers MD CHEMISTRY ORDERABLES Final Result [facility] CLIA # [id number] [address] [place] [address] * ECHO LIMITED W DOPPLER AND COLOR FLOW (04/18/2025 1:53 PM MARKET ASSET PROTECTION MANAGER) us Abstract Provider US ORDERABLES Final Result * LIPID PANEL (04/17/2025) ABSTRACTED CHOLESTEROL 108 ABSTRACTED TRIGLYCERIDE 100 ABSTRACTED HDL 34 ABSTRACTED LDL CALCULATED 54 Blood 04/17/2025 us Abstract Provider CHEMISTRY ORDERABLES Final Res ult from Last 3 Months Insurance MEDICAID [facility] [facility] PPO [facility] Advance Directives For more information, please contact: [phone] * Full Code (Latest Code Status on File) Date Activated Date Inactivated Comments 04/20/2025 2:13 AM 04/29/2025 7:02 PM * Default Full Code - Needs Discussion Date Activated Date Inactivated Comments 04/20/2025 1:17 AM 04/20/2025 2:13 AM
--- OUTSIDE RECORDS SUMMARY | 2025-05-07 16:54 | XMS_ITS | Clinical Summary ---
Author Organization [facility] Facility Address [address] [address] Care Team Providers Care Machine Shop Supervisor Name Role Phone Unavailable Primary Care Provider Unavailabl e Allergies Active Allergy Reactions Criticality Noted Date Comments Penicillins 03/01/2025 Other Reaction(s): ALGY-Difficulty Breathing, Unknown Medications valsartan (DIOVAN) 160 MG tablet Take 160 mg by mouth 1 (one) time each day 5 Active senna (SENOKOT) 8.6 MG tablet Take 8.6 mg by mouth in the morning. 5 Active rivaroxaban (XARELTO) 20 MG tablet Take 20 mg by mouth 1 (one) time each day with breakfast 5 Active potassium chloride (KLOR-CON M20) 20 MEQ CR tablet Take 40 mEq by mouth in the morning and 40 mEq in the evening. 5 Active polyethylene glycol (GLYCOLAX) 17 g packet Take 17 g by mouth in the morning. 5 Active pantoprazole (PROTONIX) 40 MG EC tablet Take 40 mg by mouth in the morning and 40 mg in the evening. Active nystatin (MYCOSTATIN) powder Apply topically 5 Active metoprolol succinate XL (TOPROL XL) 25 MG 24 hr tablet Take 25 mg by mouth in the morning. 5 Active metOLazone 2.5 MG tablet Take 2.5 mg by mouth 1 (one) time each day 5 Active meloxicam (MOBIC) 15 MG tablet Take 15 mg by mouth 1 (one) time each day 5 Active hydrALAZINE 100 MG tablet Take 100 mg by mouth in the morning and 100 mg in the evening and 100 mg before bedtime. 5 Active gemfibrozil (LOPID) 600 MG tablet Take 600 mg by mouth in the morning and 600 mg in the evening. 5 Active furosemide (LASIX) 40 MG tablet Take 40 mg by mouth in the morning and 40 mg in the evening. 5 Active Cholecalciferol 125 MCG (5000 UT) tablet Take 125 mcg by mouth 1 Active carvedilol (COREG) 3.125 MG tablet Take 3.125 mg by mouth in the morning and 3.125 mg in the evening. Take with meals. 5 Active Baclofen 5 MG tablet Take 5 mg by mouth 5 Active apixaban (ELIQUIS) 2.5 MG tablet Take 2.5 mg by mouth in the morning and 2.5 mg in the evening. 5 Active ammonium lactate (AMLACTIN) 12 % cream Apply topically 5 Active amiodarone (PACERONE) 200 MG tablet Take 200 mg by mouth 1 (one) time each day 5 Active albuterol (2.5 MG/3ML) 0.083% nebulizer solution Inhale 5 Active acetaminophen (TYLENOL) 325 MG tablet Take 650 mg by mouth every 6 hours as needed 5 Active Encounters Date Type Department Care Team Description 05/07/2025 Orders Only [facility] [address] [place] [phone] Uvaldo Huber MD Acute nontraumatic kidney injury, not otherwise specified (HCC) 04/30/2025 Telephone [facility] [address] [place] [phone] Uvaldo Huber MD from Last 3 Months Immunizations Immunization Administration Dates Next Due Tdap 03/05/2025,01/18/2023 Tuberculin Skin Test; Unspecified Formulation ,03/05/2025 Social History Tobacco Use Types Packs/Day Years Used Date Smoking Tobacco: Never Smokeless Tobacco: Never Tobacco Cessation:Counseling Given: Not Answered Sex and Gender Information Value Date Recorded Sex Assigned at Not on file Legal Sex Male 9:19 AM EST Gender Identity Not on file Sexual Orientation Not on file Plan of Treatment Upcoming Encounters Date Type Department Care Team (Late st Contact Info) Description 05/15/2025 11:30 AM COMMISSARY CLERK Office Visit [facility] [address] [place] [phone] Modesta Mohan NP [address] [facility] [address] [place] [phone] Health Maintenance Due Date Last Done Comments Pneumococcal Vaccine: 50+ Ye ars (1 of 2 - PCV) 02/29/1976 Colorectal Cancer Screening: Annual FOBT 02/28/2006 Colorectal Cancer Screening: Colonoscopy 02/28/2006 Colorectal Cancer Screening: Sigmoidoscopy 02/28/2006 Influenza Vaccine (#1) 2025 Hepatitis B Vaccine Aged Out No longe r eligible based on patient's age to complete this topic Insurance [facility] Medicare Medicaid [place] ([facility])
--- OUTSIDE RECORDS SUMMARY | 2025-05-07 16:54 | XMS_ITS ---
Author Organization [facility] are Care Team Providers Care Ventilating Engineer Name Role Phone Ck Alfaro Unavailable Unavailable Chavez Meehan Unavailable Unavailable Gina Saavedra Unavailable Unavailable Eron, Tony Unavailable Unavailable Allergies and adverse reactions Code CodeSystem Substance Reaction Severity StartDate Concern Status 7984 RXNORM Penicillin Unknown 03/05/2025 active Care Team Name Role Address Phone Organization Dates Ck Alfaro PCP [address] [place], [address], [place] (Office): [facility] 03/05/2025 - 04/30/2025 Chavez Meehan [address] [place], [address], [place] (Office[place] : [facility] 03/05/2025 - 04/30/2025 Gina Saavedra [address] [place], [address], [place]Office[place] : [facility] 03/05/2025 - 04/30/2025 Tony Littlejohn [address] [place] [address], [place], [address], [place] (Office): [facility] 03/05/2025 - 04/30/2025 Encounters Encounter Type Code Code System Description Performer Discharge Disposition Service Delivery Location Date Ambulatory Encounter CPT Code = [id number] Acute exacerbation of chronic obstructive pulmonary disease Maddie BradfordBride Discharge to [facility] Address: [address] [place] [address]. 03/05 Ambulatory Encounter CPT Code = [id number] Acute hypercapnic respiratory failure Maddie BradfordBride Discharge to [facility] Address: [address] [place] [address]. 03/05 Ambulatory Encounter CPT Code = [id number] Chronic hypoxemic respiratory failure Maddie [place] Discharge to [facility] Address: [address] [place] [address]. 03/05 Ambulatory Encounter CPT Code = [id number] Heart failure Maddie [place] Discharge to [facility] Address: [address] [place] [address]. 03/05 Ambulatory Encounter CPT Code = [id number] Osteoarthritis of knee Maddie [place] Discharge to [facility] Address: [address] [place] [address]. 03/05 Ambulatory Encounter CPT Code = [id number] Atherosclerosis of coronary artery without angina pectoris Maddie Soni Discharge to [facility] Address: [address] [place] [address]. 03/05 Ambulatory Encounter CPT Code = [id number] Chronic kidney disease stage 3 Maddie [place] Discharge to [facility] Address: [address] [place] [address]. 03/05 Ambulatory Encounter CPT Code = [id number] Gastroesophageal reflux disease without esophagitis Maddie [place] Discharge to [facility] Address: [address] [place] [address]. 03/05 Ambulatory Encounter CPT Code = [address] Nutritional deficiency disorder Maddie Soni Discharge to [facility] Address: [address] [place] [address]. 03/05 Ambulatory Encounter CPT Code = [id number] Anemia Maddie BradfordBride Discharge to [facility] Address: [address] [place] [address]. 03/05 Ambulatory Encounter CPT Code = [id number] Anemia of chronic disease Maddie BradfordBride Discharge to [facility] Address: [address] [place] [address]. 03/05 Ambulatory Encounter CPT Code = [id number] Dyspnea Maddie Soni Discharge to [facility] Address: [address] [place] [address]. 03/05 Ambulatory Encounter CPT Code = [address] Hypertensive heart failure Maddie BradfordBride Discharge to [facility] Address: [address] [place] [address]. 03/05 Ambulatory Encounter CPT Code = [id number] Morbid obesity Maddie BradfordBride Discharge to [facility] Address: [address] [place] [address]. 03/05 Ambulatory Encounter CPT Code = [id number] Peripheral vascular disease Maddie BradfordBride Discharge to [facility] Address: [address] [place] [address]. 03/05 Ambulatory Encounter CPT Code = [id number] Atrial fibrillation Maddie BradfordBride Discharge to [facility] Address: [address] [place] [address]. 03/05 Ambulatory Encounter CPT Code = [id number] Need for personal care assistance Maddie Soni Discharge to [facility] Address: [address] [place] [address], [place]. 03/05 Ambulatory Encounter CPT Code = [address] Hyperlipidemia Maddie Soni Discharge to [facility] Address: [address] [place] [address]. 03/05 Ambulatory Encounter CPT Code = [id number] Prediabetes Maddie Soni Discharge to [facility] Address: [address] [place] [address]. 03/05 Ambulatory Encounter CPT Code = [id number] Obstructive sleep apnea syndrome Maddie Soni Discharge to [facility] Address: [address] [place] [address]. 03/05 Goals Section Goals Description Status Target [...] status through the review date. Active 06/16/19 The resident will verbalize adequate relief of pain or ability to cope with incompletely relieved pain through the review date. Active 06/16/2025 [Resident name] will remain free of complications related to PVD through review date. Active 06/16/2025 Functional Status Code Name Recorded Time Value Entered By Ambulation 04/30/2025 Not assessed gtooley Ambulation 04/30/2025 Not assessed gtooley Ambulation 04/30/2025 Not assessed gtooley Ambulation 04/30/2025 Not assessed gtooley Bathing 04/16/2025 Total Dependence ncollins Dressing 04/30/2025 Not assessed gtooley Feeding or Eating 04/30/2025 Not assessed gtooley Toileting 04/30/2025 Not assessed gtooley Transferring 04/30/2025 Not assessed gtooley Immunizations Immunization Status Vaccine [...] completed tuberculin skin test; unspecified formulation lotNumber: [id number] expiry: 03/13/2026 Mfg: PAR Pharmacautical Given 0.1 [...] completed tuberculin skin test; unspecified formulation lotNumber: [id number] expiry: 03/13/2026 Mfg: PAR Pharmacautical Given 1.0 [...] Indication Furosemide Oral Tablet 40 MG active 01957 8 RXNORM 40 mg Oral two times a day Routin e Give 40 mg by mouth two times a day for CHF 2024 - CHF Amiodarone HCl Oral Tablet 200 MG active 73410 8 RXNORM 200 mg Oral one time a day Routin e Give 200 mg by mouth one time a day for a fib 2024 - a fib Valsartan Oral Tablet 160 MG active 51642 1 RXNORM 160 mg Oral one time a day Routin e Give 160 mg by mouth one time a day for htn 2024 - htn Carvedilol Oral Tablet 3.125 MG active 80732 4 RXNORM 3.125 mg Oral two times a day Routin e Give 3.125 mg by mouth two times a day for htn 2024 - htn Pantoprazol e Sodium Tablet Delayed Release 40 MG active 05155 0 RXNORM 1 table t Oral two [...] def Rivaroxaban Oral Tablet 20 MG aborted 28443 86 RXNORM 20 mg Oral one time a day Routin e Give 20 mg by mouth one time a day for pvd 04/02 pvd Gemfibrozil Oral Tablet 600 MG active 96504 9 RXNORM 600 mg Oral two times a day Routin e Give 600 mg by mouth two times a day for hld 2024 - hld Tuberculin PPD Solution 5 UNIT/0.[place] [address] 2 RXNORM 0.1 ml Intrad ermal one [...] istra tions 03/06 TB (Tuberculos is) Screening 65863 2 RXNORM 0.1 ml Intrad ermal one [...] Screening Cough Drops Lozenge 5 MG active 44200 8 RXNORM 1 lozen ge Oral as needed PRN Give 1 lozen ge by mouth every 4 hours as neede d for cough Only for alert resid ents in which swall owing and safet y aware ness are not a silvestre rn. May keep bedsi de. 2024 - cough Albuterol Sulfate Nebulizatio n Solution (2.5 MG/3ML) 0.083% active 64626 8 RXNORM 3 neri liter Inhala tion as needed PRN 3 neri liter inhal e orall y via nebul izer every 4 hours as neede d for Dyspn ea; conge stion 2024 - Dyspnea; congestion Ammonium Lactate External Cream 12 % aborted 08456 0 RXNORM n/a n/a Topica l every day shift Routin e Apply to Left Lower Leg topic ally every day shift for dry, flaky skin 04/01 dry, flaky skin Tuberculin PPD Solution 5 UNIT/0.1[place] [address] 2 RXNORM 0.1 ml Intrad ermal one [...] istra tions 03/26 TB (Tuberculos is) Screening 97293 2 RXNORM 0.1 ml Intrad ermal one [...] HCl Oral Tablet [place] [address] 8 RXNORM 1 table t Oral one time a day Routin e Give 1 table t by mouth one time a day for 5 Days 03/31 - Metolazone Tablet 2.5 MG active 15817 9 RXNORM 1 table t Oral one [...] Oral Tablet Extended Release 650 MG active 04197 99 RXNORM 2 table t Oral two times a day Routin e Give 2 table t by mouth two times a day for Pain 2024 - Pain Ferrous Sulfate Oral Tablet 325 (65 Fe) MG active 59582 5 RXNORM 1 table t Oral one time a day Routin e Give 1 table t by mouth one time a day for ANEMI A, UNSPE CIFIE D 2024 - ANEMIA, UNSPECIFIED Cholecalcif edson Tablet 400 UNIT active 49805 3 RXNORM 1 table t Oral one time a day Routin e Give 1 table t by mouth one time a day for CHRON IC KIDNE Y DISEA SE, STAGE 3 UNSPE CIFIE D (N18. 30) 2024 - CHRONIC KIDNEY DISEASE, STAGE 3 UNSPECIFIED (N18.30) Rivaroxaban Oral Tablet 20 MG aborted 52249 86 RXNORM 20 mg Oral in the evening Routin e Give 20 mg by mouth in the eveni ng for pvd 04/18 pvd Multivitami n Adult Oral Tablet active 1 table t Oral one time a day Routin e Give 1 table t by mouth one time a day 2024 - - Rivaroxaban Oral Tablet 15 MG active 73766 82 RXNORM 1 table t Oral one [...] 1 GASTRO-ESOPHAGEAL REFLUX DISEASE WITHOUT ESOPHAGITIS 04/18/[address] active 2 NUTRITIONAL DEFICIENCY, UNSPECIFIED 04/16/[address] active 3 ANEMIA, UNSPECIFIED 03/27/[address] active 4 ACUTE RESPIRATORY FAILURE WITH HYPERCAPNIA 03/25/[address] active 5 ANEMIA IN OTHER CHRONIC DISEASES CLASSIFIED ELSEWHERE 03/25/[address] active 6 CHRONIC OBSTRUCTIVE PULMONARY DISEASE WITH (ACUTE) EXACERBATION 03/25/[address] active 7 CHRONIC RESPIRATORY FAILURE WITH HYPOXIA 03/25/[address] active 8 HEART FAILURE, UNSPECIFIED 03/25/[address] active 9 DYSPNEA, UNSPECIFIED 03/17/[address] active 10 ATHEROSCLEROTIC HEART DISEASE OF [place] CORONARY ARTERY WITHOUT ANGINA PECTORIS 03/05/[address] active 11 CHRONIC KIDNEY DISEASE, STAGE 3 UNSPECIFIED 03/05/[address] active 12 HYPERLIPIDEMIA, UNSPECIFIED 03/05/[address] active 13 HYPERTENSIVE HEART DISEASE WITH HEART FAILURE 03/05/[address] active 14 MORBID (SEVERE) OBESITY DUE TO EXCESS CALORIES 03/05/[address] active 15 NEED FOR ASSISTANCE WITH PERSONAL CARE 03/05/[address] active 16 OBSTRUCTIVE SLEEP APNEA (ADULT) (PEDIATRIC) 03/05/[address] active 17 OSTEOARTHRITIS OF KNEE, UNSPECIFIED 03/05/[address] active 18 PERIPHERAL VASCULAR DISEASE, UNSPECIFIED 03/05/[address] active 19 PREDIABETES 03/05/[address] active 20 UNSPECIFIED ATRIAL FIBRILLATION 03/05/[address] active Reason for Referral No Reasons for Referral Entered Diagnostic Results Laboratory Test Results Code Code System Date Test Observation Result Interpretation Reference Range Status Notes LP783 9-6 LOINC 04/11 Complete Blood Count / Cogent- Completed Result for: Kristopher Jesus ( [birth year], M) 123-9 9999- 9 LOINC 04/10 Cogent- - Normal Final LP783 9-6 LOINC 04/11 Complete Blood Count Completed Result for: Kristopher Jesus ( [birth year] 56, M) 706-2 LOINC 04/10 BASO% Value: 0.5 Units: % Normal 0.2-1.2 Final 713-8 LOINC 04/10 EOS% Value: 0.5 Units: % Low 0.8-7.0 Final 4544- 3 LOINC 04/10 HCT Value: 29.2 Units: % Low 40.1-51.0 Final 788-0 LOINC 04/10 RDW Value: 21.9 Units: % High 11.6-14.4 Final 5905- 5 [facility] 04/10 MONO% Value: 6.7 Units: % Normal 5.3-12.2 Final 48853 -0 [facility] 04/10 LYMPH% Value: 6.9 Units: % Low 21.8-53.1 Final 770-8 [facility] 04/10 NEUT% Value: 85.4 Units: % High 34.0-67.9 Final 777-3 [facility] 04/10 MPV Value: 7.7 Units: fL Low 9.4-12.4 Final 787-2 [facility] 04/10 MCV Value: 85.3 Units: fL Normal 79.0-92.2 Final 6 [facility] 04/10 MCHC Value: 31.5 Units: g/dL Low 32.3-36.5 Final 87 [facility] 04/10 HGB Value: 9.2 Units: g/dL Low 13.7-17.5 Final [facility] 04/10 MCH Value: 26.9 Units: pg Normal 25.7-32.2 Final 777-3 [facility] 04/10 PLT Value: 302 Units: x10^3/u L Normal 163-337 Final 736-9 [facility] 04/10 LYMPH# Value: 0.6 Units: x10^3/u L Low 1.32-3.57 Final 751-8 [facility] 04/10 NEUT# Value: 7.6 Units: x10^3/u L High 1.78-5.38 Final 704-7 [facility] 04/10 BASO# Value: 0.0 Units: x10^3/u L Low 0.01-0.08 Final 711-2 [facility] 04/10 EOS# Value: 0.0 Units: x10^3/u L Low 0.04-0.54 Final 74-7 [facility] 04/10 MONO# Value: 0.6 Units: x10^3/u L Normal 0.30-0.82 Final 90- 2 [facility] 04/10 WBC Value: 8.9 Units: x10^3/u L Normal 4.23-9.07 Final 789-8 LOINC 04/10 RBC Value: 3.42 Units: 10*6/uL Low 4.63-6.08 Final Social History Social History Observation Description Start Date End Date Code Code System Current Smoking Status Tobacco smoking consumption unknown 205316906 SNOMED CT Sex Assigned At Male 02/28/1958 65609-0 [facility] Gender Identity Sexual Orientation Vital Signs Code Code System Vitals Name Values and Units Timing Information 8310-5 [facility] Body Temperature Value=97.3 Units= F 04/30/2025 9279-1 [facility] Respiratory Rate Value=18.0 Units=/m in 04/30/2025 8462-4 [facility] Blood Pressure-Diastolic Value=86 Un its=mmHg 04/30/2025 8480-6 [facility] Blood Pressure-Systolic Qeols=121 Un its=mmHg 04/30/2025 8867-4 [facility] Heart rate Bjrpu=981.0 Units=/min 04/30/2025 11770-4 [facility] O2 % BldC Oximetry Value=96.0 Units= % 04/30/2025 47661-1 [facility] Pain Level Value=0.0 03/27/2025 42018-8 [facility] Weight Oxikp=410.0 Units=Lbs 01/2025 8302-2 [facility] Height Value=71.0 Units=Inches 03/05/2025
--- OUTSIDE RECORDS SUMMARY | 2025-05-07 16:54 | XMS_ITS | Continuity of Care Document ---
Author Organization [facility] LO[facility], [facility] ([facility]) Address [address] [place] [address] Assessment No assessment recorded. Plan of Treatment [...] By Organization Details Last Modified Time 03/06/2025 [id number] hospital notes reviewed; admitted with acute chf exacerbation with acute on chronic anemia and acute kidney injury. He has been home bound for a year and has not seen pcp. He has chronic wounds. required transfusion with hgb 6; 8 on discharge; received 5 IV infusions of iron Blood pressure too low, will d/c amlodipine and hydralazine. Weights 2x weekly. Unsure if staying senior care, plan is for therapy and return home. [email or web address] Not available 03/11/2025 13:17:40 Reason for Referral None Reported. Problems Name Problem SNOMED Code Status Onset Date Resolution Date Notes Provider Name and Address Organization Details Recorded Time Essential hypertension 37381833 Active 2024 CRAIG alva [facility], [facility] 14:14:51 Gastroesophag eal reflux disease without esophagitis 772469320 Active 2024 CRAIG alva [facility], [facility] 14:14:52 Vitamin D deficiency 38098614 Active 2024 [facility] 14:14:52 Chronic atrial fibrillation 589421117 Active 2024 CRAIG UNDERWOOD [facility] 14:14:53 Chronic congestive heart failure 65082078 Active 2024 CRAIG UNDERWOOD [facility] 14:14:55 Hyperglycemia 04149036 Active 2024 CRAIG UNDERWOOD [facility] 14:14:57 Peripheral vascular disease 883320429 Active 2024 CRAIG UNDERWOOD [facility] 14:14:58 Chronic kidney disease stage 3 702737792 Active 2024 CRAIG UNDERWOOD [facility] 14:14:59 Acute exacerbation of chronic congestive heart failure 534740088 Active 2024 NEFTALY BRENDAKERRI [facility] 16:33:27 Chronic anemia 545390515 Active 2024 NEFTALY MARYKERRI [facility] 16:33:35 Iron deficiency anemia 14274081 Active 20[facility] 16:33:50 Problem Notes None recorded. Medical [...] and Address Organization Details Last Updated DateTime 67 /min 24 /min 97.7 [degF] 96 % 110/60 mm[Hg] CRAIG UNDERWOOD [facility], [facility] 14:09:40 Social History None recorded. Functional Status None recorded. Mental Status None recorded. Family History Nothing Reported. Medical History No medical history recorded. Immunizations Vaccine Type Date Status Note Provider Nam e and Address Organization Details Recorded Time Tdap 01/18/2023 completed Not Available [facility] 04/17/2025 07:12:48 Tdap 03/05/2025 completed Not Available [facility] 04/17/2025 07:12:48 Past Encounters Encounter ID Performer Location Encounter Start Date Encounter Closed Date Diagnosis/Indication Diagnosis SNOMED-CT Code Diagnosis ICD10 Code Diagnosis IMO Codes Diagnosis Note [id number] Ck Alfaro DO [facility] ([facility] [address] [place] [phone] 03/06/2025 12:44:43 03/13/2025 14:58:48 Essential hypertension 57455237 I10 75721 Gastroesop hageal reflux disease without esophagitis 622622096 K21.9 474552 Vitamin D deficiency 347 20515 E55.9 25856 Chronic at rial fibrillation 589472883 I48.20 163340 Hyperglycemia 07017065 R 73.9 68310 Peripheral vascular disease 542322206 I73.9 91738 Chronic ki dney disease stage 3 492350927 N18.30 4895262659 Morbid obesity 426064094 E66.01 77256 Coronary arteriosclerosis 35049785 I25.10 5622770509 Venous stasis 85617749 I 87.8 08540 Chronic di astolic heart failure 100748404 I50.32 006137 Chronic anemia 328147816 D64.9 5012823521 Health Concerns Section Related Observation LastModified by Organization Detai ls LastModified Time None Recorded Concern Status LastModified by Organization Details LastModified Time None Recorded Payers Encounter Date Sequence Insurance Name Policy Number Policy Post Covered Member ID Post Member ID Guarantor Name 03/06/2025 1 [facility] (MEDICARE REPLACEMENT/A DVANTAGE - PPO) [id number] Kristopher Jesus [id number] Kristopher Jesus 03/06/2025 2 [place] Kristopher Jesus [id number] Kristopher Jesus Notes Date Note Type Note Provider Name and Address Organization Details Recorded Time 03/06/2025 text/html Care Management - GeneralReported by PatientHPIFor prognosis, patient reportsexpected outcome: improveandprognosis: moderate.ROS as noted in the HPI new admit to after ER visit, plan for therapy and return home. Ck Alfaro, [address] [place] [address], [phone], [facility] 03/11/2025 13:17:55
--- NOTE | 2025-05-07 16:55 | CTR_ITS ---
PROCEDURE INFORMATION: Exam: CT Head Without Contrast Exam date and time: 05/07/2025 6:07 PM Age: 67 years old Clinical indication: Altered mental status/memory loss; Additional info: Metabolic encephalopathy TECHNIQUE: Imaging protocol: Computed tomography of the head without contrast. Radiation optimization: All CT scans at this facility use at least one of these dose optimization techniques: automated exposure control; mA and/or kV adjustment per patient size (includes targeted exams where dose is matched to clinical indication); or iterative reconstruction. COMPARISON: No relevant prior studies available. RADIATION DOSE METRICS: Total DLP (mGy-cm): 1095.98 FINDINGS: Brain: Age-related brain parenchymal atrophy. Areas of hypoattenuation in the periventricular and subcortical deep white matter likely on the basis of chronic microvascular ischemic changes. No acute intra cranial hemorrhage. No mass effect or midline shift. No definitive CT evidence of acute territorial infarction. Cerebral ventricles: Prominence of the lateral ventricular system likely on the basis of parenchymal volume loss. Paranasal sinuses: Visualized sinuses are unremarkable. No fluid levels. Mastoid air cells: Visualized mastoid air cells are well aerated. Bones: Intact calvarium. Soft tissues: Unremarkable. CT/CT head wo con* [id number] IMPRESSION: No acute intracranial abnormality. Senescent changes.
--- NOTE | 2025-05-07 17:08 | W.ED.AMS ---
HPI - Altered Mental Status General: Chief Complaint: Altered Mental Status Stated Complaint: AMS, Bed Sores Time Seen by Provider: 05/07/25 16:47 History of Present Illness: Patient is a 67-year-old male with A-fib, left bundle, EF 15 to 20%, lower extremity left wound, that presents to the hospital via EMS with no movement x 6 days. Patient states that he has home health care, he has been waiting on his home to see for the last 6 days. He has not been able to turn himself, move, or ambulate. He has been in bed, at home by himself. He refuses to go to halfway or longterm facility due to dissatisfaction in the past. Patient states he has not had any wound care to his home, or nursing care, as he is supposed to the last 6 days. He has been in his bed. He states that he got a new bed to assist with this manner, however has not been able to put pressure on his feet, or ambulate. He has not moved in the bed. He complains of a sacral decubitus. Loved 1 at bedside. He has updated me that home health care was not ordered by primary care. Loved 1 will get a hold of primary care physician in the morning to have home health care ordered. Patient is not moving in the bed, however has been eating, peeing, pooping with his help. This has been going on the last 2 days with his word finding. Associated symptoms: Deny depression Related Data Home Medications ?Medication ?Instructions ?Recorded ?Confirmed cholecalciferol (vitamin D3) 125 125 mcg PO DAILY 12/14/20 04/18/25 mcg (5,000 unit) tablet (Vitamin D3) albuterol sulfate 2.5 mg/3 mL 2.5 mg inhalation Q4H PRN Dyspnea 03/21/25 04/18/25 (0.083 %) solution for nebulization ammonium lactate 12 % topical cream 1 applic topical DAILY 03/21/25 04/18/25 baclofen 5 mg tablet 5 mg PO Q8H PRN Muscle Spasm 03/21/25 04/18/25 guaifenesin 100 mg/5 mL oral 200 mg PO Q4H PRN Cough 03/21/25 04/18/25 liquid (Guaifed (guaifenesin)) menthol 2.5 mg-pectin 7 mg 1 agusto PO Q4H PRN Cough 03/21/25 04/18/25 lozenges (Cough Drops (menthol-pectin)) nystatin 100,000 unit/gram topical 1 applic topical BID PRN Skin 03/21/25 04/18/25 powder Irritation ferrous sulfate 325 mg (65 mg 325 mg PO DAILY 04/18/25 04/18/25 iron) tablet metolazone 2.5 mg tablet 2.5 mg PO DAILY 04/18/25 04/18/25 multivitamin 1 tab PO DAILY 04/18/25 04/18/25 potassium chloride 20 mEq 40 meq PO BID 04/18/25 04/18/25 tablet,extended release(part/cryst) valsartan 160 mg tablet 160 mg PO DAILY 04/18/25 04/18/25 Previous Rx's ?Medication ?Instructions ?Recorded auto CPAP 6-16 setting #1 ea 03/22/23 amiodarone 200 mg tablet (Pacerone) 200 mg PO DAILY #100 tabs 06/18/24 gemfibrozil 600 mg tablet 600 mg PO BID #200 tabs 06/18/24 rivaroxaban 20 mg tablet 20 mg PO DAILY #100 tabs 06/18/24 CPAP mask, tubing, supplies #1 ea 08/14/24 acetaminophen 650 mg 650 mg PO Q12H PRN pain #60 tabs 08/14/24 tablet,extended release (Tylenol Arthritis Pain) furosemide 40 mg tablet 40 mg PO BID@08,16 #60 tabs 03/04/25 pantoprazole 40 mg tablet,delayed 40 mg PO BID #60 tabs 03/04/25 release carvedilol 3.125 mg tablet 3.125 mg PO BID #180 tabs 03/25/25 CPAP 6-16 cm mmHg setting machine, #1 ea 05/06/25 with mask, tubing and supplies cefdinir 300 mg capsule 300 mg PO BID 10 days #20 caps 05/07/25 Allergies Allergy/AdvReac Type Severity Reaction Status Date / Time Penicillins Allergy ALGY-Difficulty Verified 03/01/25 14:12 Breathing Review of Systems General: Reports: 10 or more systems reviewed and unremarkable except in HPI and below Const: Reports: fatigue and malaise; Denies: fever(s) or chills Eyes: Denies: change in vision or blurry vision Card: Reports: chest pain and palpitations; Denies: syncope Resp: Denies: dyspnea GI: Reports: nausea; Denies: abdominal pain or vomiting : Denies: flank pain or difficulty urinating Musc: Reports: back pain, extremity pain, extremity swelling, joint pain, joint swelling and joint stiffness; Denies: neck pain Skin/Breast: Reports: sores and new lesions; Denies: rash or pruritus Neuro: Reports: numbness in extremities, weakness in extremities, lack of coordination and difficulty walking; Denies: headache(s), dizziness or vertigo Psych: Denies: anxiety or depression PFSH ED PFSH: Medical History (Updated 05/07/25 @ 21:47 by SAROJ Mojica) Afib Heart failure with mildly reduced ejection fraction Cardiac murmur, previously undiagnosed Bilateral impacted cerumen Pre-diabetes Obstructive sleep apnea syndrome, severe Severe obstructive sleep apnea with hypoxia on 01/03/2023 study Basal cell carcinoma of right ear Chronic shortness of breath CKD (chronic kidney disease) stage 3, GFR 30-59 ml/min Cardiac arrest with ventricular fibrillation Chronic episodic atrial fibrillation Hx of adenomatous colonic polyps Last Colonoscopy 09/12/2020 with adenomatous polyp removed at 50 cm F/U 5 yrs Osteoarthritis Left bundle branch block History of alcohol abuse PVD (peripheral vascular disease) Morbid obesity with BMI of 50.0-59.9, adult CHF (congestive heart failure) CAD (coronary artery disease) Hx of myocardial infarction HTN (hypertension) Anemia in chronic kidney disease Hyperlipidemia Surgical History Hx of external ear surgery History of open reduction and internal fixation (ORIF) procedure Hx of foot surgery History of surgery on wrist Family History Mother No problems noted. Father No problems noted. Grandmother Diabetes Denies family history of CAD (coronary artery disease) Clotting disorder Dementia Chronic kidney disease (CKD) Suicide Anesthesia complication Bleeding disorder Lung disease Cancer Stroke Social History Smoking and tobacco/nicotine status: never used tobacco/nicotine Alcohol intake: never Substance/Drug Use: never Marital status: Single Number of children: 1 Current occupational status: disabled Physical Exam Const: COMMON NORMALS: no acute distress, average body habitus and patient oriented x3 HENMT: COMMON NORMALS: normocephalic and atraumatic HEAD & SCALP: normocephalic and atraumatic Eye: COMMON NORMALS: Equal, round and reactive pupils present, EOMs intact bilaterally and conjunctivae normal CONJUNCTIVA: Yes conjunctivae normal PUPIL: Yes Equal, round and reactive pupils present Neck/C-Spine: COMMON NORMALS: full ROM and no lymphadenopathy Lymph: LYMPHATIC: no lymphadenopathy noted Chest: COMMONS NORMALS: normal inspection of the chest and normal palpation of entire chest wall Resp: COMMON NORMALS: normal respiratory effort, No retractions and No use of accessory muscles Cardio: RATE: tachycardic RHYTHM: abnormal rhythm regularly irregular GI: COMMON NORMALS: Normal to inspection, nondistended, normoactive bowel sounds present and Soft to palpation PALPATION: Yes Soft to palpation Back/Pelvis: BACK IMAGE (MALE):  1. Stage II-III Decubitus ulcer Extremity: EXTREMITY IMAGE (FRONT):  1. Contained wound care, open sore, covered, no surrounding redness Neuro: COMMON NORMALS: patient oriented x3 Psych: COMMON NORMALS: cooperative ACTIVITY/MOTOR BEHAVIOR: Yes psychomotor agitation and Yes fidgeting MOOD & AFFECT: Yes anxious Skin: NARRATIVE SKIN EXAM: See skin exam above: Sacral decub stage II-III, lower extremity wound Course Vital Signs: Vital signs: Vital Signs Temperature 98.1 F 05/07/25 16:48 Pulse Rate 112 H 05/07/25 21:39 Respiratory Rate 16 05/07/25 21:39 Blood Pressure 114/73 05/07/25 21:39 Pulse Oximetry 98 05/07/25 21:39 Oxygen Delivery Me thod Room Air 05/07/25 18:48 MDM - Altered Mental Status Medical Decision Making Patient is a 67-year-old gentleman that refuses to go to longterm facility, and inability to take care of himself. He is confused. He will require a broad workup. He has new sacral decubitus. He does not appear to be stable to be at home alone. This will need to be hotlined. Discussed with RN. director of creative services referral made. X-ray shows A-fib RVR. He has not been able to take his medication. As I turned the patient, I recognized 2 different Tylenol's, pantoprazole, and did not recognize a brown pill. Suspect he has not had his amiodarone. Will give an amiodarone load, monitor the patient, and do a broad workup with cultures, urinalysis, chest x-ray, CPK, CBC, CMP, ABG given his confusion. Patient's initial laboratory data is without change from previous. His troponin is typically elevated, however will ensure this is flat. His heart rate has decreased with amiodarone 150 mg IV push x 1. He is on Xarelto or supposed to be on Xarelto daily. As noted, he does not appear safe to be in his home. Urine analysis is still pending. He has decreased absolute neutrophil count in the past as well. No leukocytosis. CT of his head is without acute changes, no infiltrate on imaging. Ammonia, lactic acid in range. Cultures are pending. So far, the only issue is his decubitus, and chronic left lower extremity wound. Urinalysis shows 21?50 WBCs. Heart rate is now controlled at 90-100. Suspect this is just lack of care to self. Patient is oriented. No red flags. He will be discharged home because he refuses to go to a facility, with antibiotics. He has to follow-up primary care. We did discuss changing his options to hospice, however patient declined this option. Medical Records I reviewed the patient's medical records. Lab Data I reviewed the patient's lab results. 05/07/25 18:20 05/07/25 18:20 Radiology Impressions Chest X-Ray 05/07/25 16:54 IMPRESSION: As above. Head CT 05/07/25 16:55 IMPRESSION: No acute intracranial abnormality. Senescent changes. Laboratory Results WBC 7.09 10^3/uL (3.29-11.43) 05/07/25 18:20 RBC 3.58 10^6/uL (3.85-5.65) L 05/07/25 18:20 Hgb 10.00 g/dL (11.27-16.99) L 05/07/25 18:20 Hct 32.7 % (37-53) L 05/07/25 18:20 MCV 91.3 fl (82-101) 05/07/25 18:20 MCH 27.9 pg (27-33) 05/07/25 18:20 MCHC 30.6 g/dL (30-55) 05/07/25 18:20 RDW 23.2 % (12.1-15.1) H 05/07/25 18:20 Plt Count 201 10^3/cmm (157-399) 05/07/25 18:20 MPV 9.0 fL (7.4-10.4) 05/07/25 18:20 Neut % (Auto) 79.6 % 05/07/25 18:20 Lymph % (Auto) 8.9 % 05/07/25 18:20 [place] % (Auto) 9.7 % 05/07/25 18:20 Eos % (Auto) 0.7 % 05/07/25 18:20 Baso % (Auto) 0.4 % 05/07/25 18:20 Neut # (Auto) 5.64 10^3/uL (1.8-7.7) 05/07/25 18:20 Lymph # (Auto) 0.6 10^3/uL (0.8-4.8) L 05/07/25 18:20 [place] # (Auto) 0.7 10^3/uL (0.2-0.9) 05/07/25 18:20 Eos # (Auto) 0.1 10^3/uL (0.0-0.8) 05/07/25 18:20 Baso # (Auto) 0.0 10^3/uL (0.0-0.1) 05/07/25 18:20 Nucleated RBC % (auto) 0 % 05/07/25 18:20 Nucleated RBCs # 0.0 /100WBC 05/07/25 18:20 ESR 48 mm/hr (0-10) H 05/07/25 18:20 Specimen Type Arterial 05/07/25 17:11 Sample Site Brachial, right 05/07/25 17:11 ABG pH 7.45 (7.35-7.45) 05/07/25 17:11 ABG pCO2 34.4 mmHg (35-45) L 05/07/25 17:11 ABG pO2 65.6 mmHg (80.0-100.0) L 05/07/25 17:11 ABG PO2/FiO2 Ratio 312 05/07/25 17:11 ABG HCO3 23.6 mmol/L (22-26) 05/07/25 17:11 ABG O2 Saturation 95.5 05/07/25 17:11 ABG Base Excess -0.1 mmol/L (-2.0-2.0) 05/07/25 17:11 Melvin Test N/a 05/07/25 17:11 A-a O2 Gradient 5.3 mmHg (5-10) 05/07/25 17:11 Hematocrit 31.7 % (42-52) L 05/07/25 17:11 Hgb O2 Saturation 93.8 % (95-100) L 05/07/25 17:11 Carboxyhemoglobin 1.7 %THgb (0.4-20.1) 05/07/25 17:11 Methemoglobin 0.2 % (0.4-1.5) L 05/07/25 17:11 Total Hemoglobin 10.4 g/dL (14-18) L 05/07/25 17:11 Sodium 136.0 mmol/L (131-143) 05/07/25 17:11 Potassium 3.4 mmol/L (3.5-5.0) L 05/07/25 17:11 Glucose 130.0 mg/dL (70-115) H 05/07/25 17:11 Ionized Calcium 1.3 mmol/L (1.1-1.4) 05/07/25 17:11 O2 Delivery Device Room air 05/07/25 17:11 FiO2 21.0 % 05/07/25 17:11 Nursing Unit Manager ID Amh 05/07/25 17:11 Sodium 139 mmol/L (136-145) 05/07/25 18:20 Potassium 3.5 mmol/L (3.5-5.1) 05/07/25 18:20 Chloride 101 mmol/L (98-107) 05/07/25 18:20 Carbon Dioxide 21 mmol/L (22-29) L 05/07/25 18:20 Anion Gap 20.5 (5-19) H 05/07/25 18:20 BUN 74 mg/dL (8-23) H 05/07/25 18:20 Creatinine 2.5 mg/dL (0.7-1.2) H 05/07/25 18:20 GFR Calculation 25.8 mL/min (90-130) L 05/07/25 18:20 Glucose 127 mg/dL (65-115) H 05/07/25 18:20 Calculated Osmolality 311 mOsm/kg (285-295) H 05/07/25 18:20 Lactic Acid 1.2 mmol/L (0.5-2.2) 05/07/25 18:20 Calcium 9.6 mg/dL (8.5-10.5) 05/07/25 18:20 Total Bilirubin 0.5 mg/dL (0.15-1.2) 05/07/25 18:20 AST 16 U/L (0-40) 05/07/25 18:20 ALT 12 U/L (0-41) 05/07/25 18:20 Alkaline Phosphatase 69 U/L (40-130) 05/07/25 18:20 Ammonia 15 umol/L (16-60) L 05/07/25 18:20 Creatine Kinase 33 U/L (39-308) L 05/07/25 18:20 Troponin T Baseline 135 ng/L (0-15) H* 05/07/25 18:20 Troponin T 120 Minute 132.8 ng/L (0-15) H 05/07/25 20:30 Delta Troponin T -2.2 ABS# (0-10) L 05/07/25 20:30 C-Reactive Protein 26.1 mg/L (0.0-4.9) H 05/07/25 18:20 NT-Pro-B Natriuret Pep 43751 pg/mL (0-125) H 05/07/25 18:20 Total Protein 6.6 g/dL (6.6-8.7) 05/07/25 18:20 Albumin 3.7 g/dL (3.5-5.2) 05/07/25 18:20 Globulin 2.9 g/dL (1.3-4.6) 05/07/25 18:20 Urine Color Yellow (Yellow) 05/07/25 19:50 Urine Appearance Clear (CLEAR) 05/07/25 19:50 Urine pH 5.5 (5-7) 05/07/25 19:50 Ur Specific [employer] 1.010 (1.005-1.030) 05/07/25 19:50 Urine Protein 1+ (Negative) A 05/07/25 19:50 Urine Glucose (UA) Negative (Normal) 05/07/25 19:50 Urine Ketones Negative (Negative) 05/07/25 19:50 Urine Blood 3+ (Negative) A 05/07/25 19:50 Urine Nitrate Negative (Negative) 05/07/25 19:50 Urine Bilirubin Negative (Negative) 05/07/25 19:50 Urine Urobilinogen 0.2 mg/dL (Negative) 05/07/25 19:50 Ur Leukocyte Esterase 1+ (Negative) A 05/07/25 19:50 Urine RBC 6-10 /hpf (0-2) 05/07/25 19:50 Urine WBC 21-50 /hpf (0-5) H 05/07/25 19:50 Ur Squamous Epith Cells 0-5 /hpf (0-5) 05/07/25 19:50 Amorphous Sediment Not Reportable 05/07/25 19:50 Urine Bacteria None seen /hpf (NONE) 05/07/25 19:50 Hyaline Casts 0.40 /lpf 05/07/25 19:50 Urine Opiates Screen Negative ng/mL (Negative) 05/07/25 19:50 Ur Barbiturates Screen Negative ng/mL (Negative) 05/07/25 19:50 Ur Phencyclidine Scrn Negative ng/mL (Negative) 05/07/25 19:50 Ur Amphetamines Screen Negative ng/mL (Negative) 05/07/25 19:50 U Benzodiazepines Scrn Negative ng/mL (Negative) 05/07/25 19:50 Urine Cocaine Screen Negative ng/mL (Negative) 05/07/25 19:50 U Marijuana (THC) Screen Negative ng/mL (Negative) 05/07/25 19:50 Ethyl Alcohol < 10 mg/dL (0-10) 05/07/25 18:20 Influenza A (PCR) Negative (Negative) 05/07/25 17:24 Influenza Type B (PCR) Negative (Negative) 05/07/25 17:24 RSV (PCR) Negative (Negative) 05/07/25 17:24 SARS-CoV-2 (PCR) Negative (Negative) 05/07/25 17:24 All radiology interpretation(s) finalized by discharge ED provider radiology interpretation(s): No acute findings EKG Data EKG 1: Interpretation: atrial fibrillation with isolated PVC, rate 110 EKG 2: Interpretation: Atrial fibrillation with PVC, rate 107, left bundle branch block Discharge Plan Discharge Patient Disposition: Home Clinical Impression: Pyuria, Decubitus ulcer of back, stage 3 Condition: Stable Prescriptions: New cefdinir 300 mg capsule 300 mg PO BID 10 Days Qty: 20 0RF No Action acetaminophen [Tylenol Arthritis Pain] 650 mg tablet extended release 650 mg PO Q12H PRN (Reason: pain) Qty: 60 1RF (DME) CPAP mask, tubing, supplies See Rx Instructions .ROUTE .MEDSUPPLY Qty: 1 1RF Rx Instructions: As directed (DME) auto CPAP 6-16 setting See Rx Instructions .Route .MEDSUPPLY Qty: 1 0RF Rx Instructions: As directed gemfibrozil 600 mg tablet 600 mg PO BID Qty: 200 3RF rivaroxaban 20 mg tablet 20 mg PO DAILY Qty: 100 3RF Rx Instructions: must administer with evening meal amiodarone [Pacerone] 200 mg tablet 200 mg PO DAILY Qty: 100 3RF (DME) CPAP 6-16 cm mmHg setting machine, with mask, tubing and supplies See Rx Instructions .ROUTE .MEDSUPPLY Qty: 1 0RF Rx Instructions: As directed cholecalciferol (vitamin D3) [Vitamin D3] 125 mcg (5,000 unit) Tablet 125 mcg PO DAILY furosemide 40 mg Tablet 40 mg PO BID@08,16 Qty: 60 2RF pantoprazole 40 mg tablet,delayed release (DR/EC) 40 mg PO BID Qty: 60 3RF nystatin 100,000 unit/gram Powder 1 applic TOPICAL BID PRN (Reason: Skin Irritation) baclofen 5 mg tablet 5 mg PO Q8H PRN (Reason: Muscle Spasm) albuterol sulfate 2.5 mg /3 mL (0.083 %) Solution For Nebulization 2.5 mg INHALATION Q4H PRN (Reason: Dyspnea) ammonium lactate 12 % Cream 1 applic TOPICAL DAILY Rx Instructions: apply to left lower leg topically every day shift for dry, flaky skin Cough Drops (menthol-pectin) 2.5-7 mg Lozenge 1 agusto PO Q4H PRN (Reason: Cough) guaifenesin [Guaifed (guaifenesin)] 100 mg/5 mL Liquid 200 mg PO Q4H PRN (Reason: Cough) carvedilol 3.125 mg tablet 3.125 mg PO BID Qty: 180 3RF Rx Instructions: must administer with a meal/food; hold for SBP less than 95 multivitamin Tablet 1 tab PO DAILY metolazone 2.5 mg tablet 2.5 mg PO DAILY potassium chloride 20 mEq tablet,ER particles/crystals 40 meq PO BID ferrous sulfate 325 mg (65 mg iron) Tablet 325 mg PO DAILY valsartan 160 mg tablet 160 mg PO DAILY Discharge Orders: Discharge ED (Routine); Ordered 05/07/25 Ordered By: Tamara Rushing Referrals: Brent Samuel MD [Primary Care Provider, Family Practice] Discharge Diet: Low Salt Discharge Activity: Resume usual activity Patient Instructions: Urinary Tract Infection in Men (ED), Patient Portal & Erica Instructions, Decubitus Ulcers Activity Restrictions/Additional Instructions: - Your antibiotics were sent to the pharmacy: Cefdinir. Use as directed twice daily. Take a probiotic or eat active culture yogurt to avoid infectious diarrhea -It is important to have care, ambulate. It is important to follow a low-salt diet. - Please continue to work with social and human services assistant on your resources - Take your home medication as prescribed - Return to ED if you have fever greater than 100.4, worsening pain - You need to offload your buttocks. Turn slvh-ad-evue, place offloading pillows. Keep your DuoDERM in place on your coccyx. - Clean yourself daily. This is important to your urinary tract infection. Thank you for choosing [facility] for your healthcare needs today. You have been screened and evaluated and felt safe for discharge. Health conditions do change or evolve sometimes and as such it is important that you follow up with your Primary Doctor to be re checked, 3-5 days is a general good time frame for follow up. You are always welcome to return to the ED for re assessment if your symptoms are worsening or you have new concerns Print Language: [place] Coding Level of Care Code ED Counterintelligence Analyst for Helga Fonseca
[2025-05-07 17:23] LABS: ABG PCO2 34.4 mmHg (35-45); ABG PH Result 7.45 (7.35-7.45); Alveolar-Arterial Oxygen Gradi 5.3 mmHg (5-10); Arterial Blood Gas Hematocrit 31.7 % (42-52); Blood Gas Operator Identificat AMH; Blood Gas Sample Site Brachial, right; Blood Gas Sample Type Arterial; Carboxyhemoglobin 1.7 %THgb (0.4-20.1); Glucose Level-ABG 130.0 mg/dL (70-115); HCO3 ABG 23.6 mmol/L (22-26); Ionized Calcium Level - ABG 1.3 mmol/L (1.1-1.4); Methemoglobin 0.2 % (0.4-1.5); Oxygen Saturation ABG 95.5; PO2 ABG 65.6 mmHg (80.0-100.0); PO2 FiO2 Ratio Arterial Blood 312; Potassium Level - ABG 3.4 mmol/L (3.5-5.0); Sodium Level - ABG 136.0 mmol/L (131-143)
[2025-05-07] MEDS: amiodarone 150 MG/100 ML PREMIX 400 MG IV (17:47)
[2025-05-07 18:26] LABS: Respiratory Syncytial Virus Ce NEGATIVE (Negative); SARS-CoV-2 PCR NEGATIVE (Negative)
[2025-05-07 18:56] LABS: Hematocrit 32.7 % (37-53); Hemoglobin 10.00 g/dL (11.27-16.99); Mean Corpuscular HGB Conc 30.6 g/dL (30-55); Mean Corpuscular Hemoglobin 27.9 pg (27-33); Mean Corpuscular Volume 91.3 fl (82-101); Nucleated Red Blood Cells % 0 %; Platelet Count 201 10^3/cmm (157-399); Red Blood Count 3.58 10^6/uL (3.85-5.65); White Blood Count 7.09 10^3/uL (3.29-11.43)
--- NOTE | 2025-05-07 18:59 | ECG_ITS ---
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 Measurements Intervals [place] Rate: 107 P: 58 AR: 237 QRS: 64 QRSD: 195 T: 70 QT: 441 QTc: 591 Interpretive Statements INDETERMINATE RHYTHM DUE TRACING ARTIFACT WIDE COMPLEX TACHYCARDIA LEFT BUNDLE BRANCH BLOCK [120+ ms QRS DURATION, 80+ ms Q/S IN V1/V2, 85+ ms R IN I/aVL/V5/V6] Compared to ECG 05/07/2025 16:57:04 NO SIGNIFICANT CHANGE Electronically Signed On 05-11-2025 17:57:55 CONCRETE CONVEYOR OPERATOR by Andrew Cameron M.D. [email or web address]
[2025-05-07 19:08] LABS: Ammonia 15 umol/L (16-60)
[2025-05-07 19:14] LABS: Lactic Sepsis W/Reflex 1.2 mmol/L (0.5-2.2); Troponin(5th) Baseline 135 ng/L (0-15)
[2025-05-07 19:18] LABS: Albumin Level 3.7 g/dL (3.5-5.2); Chloride 101 mmol/L (98-107); Potassium 3.5 mmol/L (3.5-5.1); Sodium 139 mmol/L (136-145)
[2025-05-07 19:50] LABS: Alanine Aminotransferase 12 U/L (0-41); Alkaline Phosphatase 69 U/L (40-130); Anion Gap 20.5 (5-19); Aspartate Amino Transferase 16 U/L (0-40); Blood Urea Nitrogen 74 mg/dL (8-23); Calcium 9.6 mg/dL (8.5-10.5); Carbon Dioxide 21 mmol/L (22-29); Globulin 2.9 g/dL (1.3-4.6); Glucose 127 mg/dL (65-115); Osmolality Calculated 311 mOsm/kg (285-295); Total Protein 6.6 g/dL (6.6-8.7)
[2025-05-07 19:51] LABS: Alcohol Level < 10 mg/dL (0-10)
[2025-05-07 20:49] LABS: Glucose Urine UA Negative (Normal); Nitrate Urine Negative (Negative); Specific Gravity, Urine 1.010 (1.005-1.030)
[2025-05-07 20:54] LABS: Add Urine Microscopic? YES
[2025-05-07 20:57] LABS: PCP Screen Urine Negative (Negative)
[2025-05-07 20:59] LABS: Troponin 5 2HR Delta -2.2 ABS# (0-10)
[2025-05-07 21:01] LABS: Troponin 5 2HR 132.8 ng/L (0-15)
[2025-05-07] MEDS: cefTRIAXone 1,000 mg SDV 1000 MG IVP (21:37)
[2025-05-08 13:24] LABS: Staphylococcus epidermidis Detected (NOT DETECT); Staphylococcus species Detected (NOT DETECT)
== END 2025-05-07 22:51 | disposition home or self-care (01) ==
PROVIDERS: Emergency Provider Physician Assistant; PCP Family Medicine
DX: L89.103 Pressure ulcer of unspecified part of back, stage 3 (principal); R82.81 Pyuria; Z11.52 Encounter for screening for COVID-19; L97.929 Non-pressure chronic ulcer of unspecified part of left lower leg with unspecified severity; I25.10 Atherosclerotic heart disease of native coronary artery without angina pectoris; Z85.828 Personal history of other malignant neoplasm of skin; E78.5 Hyperlipidemia, unspecified; I13.0 Hypertensive heart and chronic kidney disease with heart failure and stage 1 through stage 4 chronic kidney disease, or unspecified chronic kidney disease; N18.30 Chronic kidney disease, stage 3 unspecified; I50.20 Unspecified systolic (congestive) heart failure
CPT/HCPCS: 36415; 36600; 70450; 71045; 80051; 80053; 80306; 80307; 81001; 82140; 82330; 82550; 82805; 83605; 83880; 84484; 85025; 85651; 86140; 87040; 87077; 87086; 87150; 87186; 87205; 87637; 93005; 96374; 96375; 99285; J0283; J0696; J9999